=== PATIENT | female | born 1945 | race African-American/Black ===

== ENCOUNTER 2022-11-27 11:30 | Emergency (ER) | payer MEDICARE, MEDICAID, SELFPAY ==
--- NOTE | ~2022-11-27 | XR_ITS ---
EXAMINATION: XR KNEE LEFT XR TIBIA-FIBULA LEFT CLINICAL INFORMATION: Pain after fall COMPARISON: None TECHNIQUE: Left knee, 4 views Left tibia/fibula, 2 views FINDINGS: Left knee: Diffuse osteopenia. Bones have normal alignment. No fracture, subluxation or joint effusion. Small osteophytes of the patella and medial tibiofemoral compartment. Surgical clips present within soft tissues of the posteromedial knee. The peripheral vessels are calcified. Left tibia/fibula: Diffuse osteopenia. Old, healed fracture of the proximal fibular diaphysis. No acute osseous injury. Nonspecific edema within subcutaneous tissues of the lower extremity. XR/XR knee LT 4V IMPRESSION: * No acute fracture or malalignment at the left knee or lower extremity. * Bones are diffusely osteopenic and there is an old, healed fracture of the proximal left fibular diaphysis. * Mild osteoarthritis of the patellofemoral and medial tibiofemoral compartments of the left knee. * Nonspecific edema within subcutaneous tissues of the lower extremity.
--- NOTE | ~2022-11-27 | XR_ITS ---
EXAMINATION: XR KNEE LEFT XR TIBIA-FIBULA LEFT CLINICAL INFORMATION: Pain after fall COMPARISON: None TECHNIQUE: Left knee, 4 views Left tibia/fibula, 2 views FINDINGS: Left knee: Diffuse osteopenia. Bones have normal alignment. No fracture, subluxation or joint effusion. Small osteophytes of the patella and medial tibiofemoral compartment. Surgical clips present within soft tissues of the posteromedial knee. The peripheral vessels are calcified. Left tibia/fibula: Diffuse osteopenia. Old, healed fracture of the proximal fibular diaphysis. No acute osseous injury. Nonspecific edema within subcutaneous tissues of the lower extremity. XR/XR tibia fibula LT 2V IMPRESSION: * No acute fracture or malalignment at the left knee or lower extremity. * Bones are diffusely osteopenic and there is an old, healed fracture of the proximal left fibular diaphysis. * Mild osteoarthritis of the patellofemoral and medial tibiofemoral compartments of the left knee. * Nonspecific edema within subcutaneous tissues of the lower extremity.
--- NOTE | ~2022-11-27 | CT_ITS ---
EXAMINATION: CT HEAD W/O IV CONTRAST CT CERVICAL SPINE W/O IV CONTRAST CLINICAL INFORMATION: History of fall, head strike. Hit head while on Plavix. COMPARISON: None TECHNIQUE: Head - Contiguous axial imaging of the head was performed from the skull base to the vertex without the administration of intravenous contrast, and axial images are reconstructed at 2 mm and 5 mm slice thickness. Cervical spine - A volumetric, helical CT acquisition of the cervical spine was obtained without contrast; in addition to the standard set of axial images, multiplanar reformatted images were provided in the coronal and sagittal imaging planes. This CT examination was performed using dose optimization techniques as appropriate, variously including the following: *Automated exposure control *Adjustment of mA and/or kV according to patient size (this includes techniques or standardized protocols for targeted exams where dose is matched to indication/reason for exam; i.e. extremities or head) *Use of iterative reconstruction technique DLP: 1561 mGy-cm (total) FINDINGS: HEAD: No acute intracranial findings. Lundy to white matter differentiation is preserved. No evidence of intracranial hemorrhage, major vascular territory infarction, focal mass effect or midline shift. Atherosclerotic calcification of cavernous carotid arteries. Patchy hypoattenuation within supratentorial white matter is compatible with sequela of moderate microangiopathy. Old lacunar infarcts of left basal ganglia as well as old infarct along the right corpus striatum. Mild parenchymal volume loss with commensurate prominence of ventricles and sulci. No hydrocephalus or extra-axial fluid collections. There is patchy opacity from edema and/or mild hemorrhage in subcutaneous tissue of the parietal-occipital scalp. This likely represents mild contusion from recent fall. The underlying calvarium is intact. Bilateral mastoid effusions and associated opacification of right more so than left middle ear cavity. The orbits and globes are intact. There is a mucous retention cyst of the inferior frontal sinus. CERVICAL SPINE: The craniocervical junction is normal. The occipital condyles, dens and atlantodental articulation are intact. The vertebral body heights and alignment are maintained. No fractures in the anterior or posterior elements. No prevertebral soft tissue edema or paraspinal hematoma. Moderate multilevel discovertebral degenerative change of the cervical spine and multilevel facet arthropathy. No consolidation or pneumothorax in either visualized apex. The evaluation of apices is partially limited by respiratory motion. A heterogeneous mildly enlarged multinodular thyroid gland is present in several nodules are peripherally calcified. Recommend thyroid ultrasound correlation. CT/CT cervical spine wo IV con IMPRESSION: * There is edema/contusion of subcutaneous tissue of the parietoccipital scalp without calvarial fracture. * No intracranial hemorrhage or other acute intracranial pathology. * Patchy hypoattenuation within supratentorial white matter is compatible with sequela of moderate microangiopathy. * No acute fracture of the degenerated cervical spine. * Mildly enlarged heterogeneous multinodular thyroid goiter. Recommend correlation with thyroid ultrasound. * Bilateral mastoid effusions are present.
[2022-11-27 11:47] VITALS: BP 134/57; BP 160/68; PULSE 67; PULSE 74; RESP 16; TEMP 36.6; O2SAT 96; O2SAT 97; BMI 36.9
--- NOTE | 2022-11-27 12:12 | ED.GENADULT ---
HPI - General Adult General Chief complaint: Fall Stated complaint: LLE PAIN S/P FALL,-LOC,-HEADSTRIKE PER EMS Time Seen by Provider: 11/27/22 11:40 Source: patient and EMS Mode of arrival: EMS Limitations: physical limitation History of Present Illness HPI narrative: The patient is a 76-year-old female brought in by EMS with reported history of prior CVA with left-sided deficits currently on Plavix complaining of left knee pain after a fall two days ago. Patient states that she lives at home alone and has a visiting nurse. She states that 2 days ago she was ambulating to the bathroom without her walker and lost her balance and fell to the floor. She reports hitting her head but denies loss of consciousness, states that it took her several hours to get up off of the floor. She reported her knee pain to the visiting nurse today who called the ambulance. She denies any other injury or complaints. 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 She denies any nausea or vomiting, vision changes, headache. Related Data Allergies Allergy/AdvReac Type Severity Reaction Status Date / Time Penicillins Allergy Unknown Unverified 11/27/22 12:03 piroxicam Allergy Unknown Unverified 11/27/22 12:03 shrimp Allergy Hives Unverified 11/27/22 12:03 Sulfa (Sulfonamide Allergy Unknown Unverified 11/27/22 12:03 Antibiotics) Review of Systems Review of Systems: As per HPI Yes all other systems are reviewed and are negative PMFSH Social History Social History Advance Directives: No Advance Directives Information Provided: Yes Physical Exam ED Vital Signs: Vital Signs - 24 hr 11/27/22 11:47 11/27/22 14:21 11/27/22 15:12 Temperature 97.9 F 98 F Pulse Rate 67 63 59 Respiratory Rate 16 18 13 Blood Pressure 134/57 L 136/61 123/51 L Pulse Oximetry 97 99 99 Oxygen Delivery Method Nasal Cannula Nasal Cannula Nasal Cannula Oxygen Flow Rate 2 2 BMI result Body Mass Index 36.9 Vital signs have been reviewed and appear to be correct. Blood pressure normal. Heart rate normal. Respiratory rate normal. Temperature normal. Oxygen saturation normal, wears 2lpm O2 via NC at baseline. Const General: cooperative, alert and awake; No acute distress Orientation/consciousness: patient oriented x3 Limitations: physical limitations (left sided deficits from prior CVA) [facility] Head: Yes No palpable skull fracture present, Yes normocephalic, No Garcia's sign, Yes contusion (occipital), No laceration, No occipital foramen tenderness, No raccoon eyes, No periorbital ecchymosis and Yes other (left facial droop, reportedly baseline) Ears: external ears normal, TM's normal bilaterally and EAC's normal General nose exam: Normal external nose present Mouth: Normal oral and palatal mucosa present, oropharynx normal and moist mucous membranes Throat: Yes uvula midline Eyes Pupils: Equal, round and reactive pupils present Neck Neck: Yes normal visual inspection and Yes supple Resp Effort & Inspection: normal respiratory effort Auscultation: clear to auscultation bilaterally Cardio Rate: regular rate Rhythm: regular rhythm Heart sounds: S1 normal heart sound present and S2 normal heart sound present GI Inspection: Yes normal to inspection Palpation (GI): Soft to palpation, nontender, no guarding and No Rebound tenderness present General: Yes no CVA tenderness Back/Spine/Pelvis Back: no CVA tenderness Cervical Spine: No Cervical spine tenderness and No step off deformity Thoracic/Lumbar Spine: No thoracic spinal tenderness and No lumbar spinal tenderness Pelvis: no pain with anterior-posterior compression and no pain with lateral compression Skin General skin exam: elasticity normal and turgor normal Neuro Other: baseline L facial droop, LUE and LLE weakness; GCS 15 General: patient oriented x3 Cranial nerves: Yes Equal, round and reactive pupils present Psych Affect: normal affect Attitude: cooperative Thought process: Normal thought process present Course Course Course Narrative: 13:36 FINDINGS: Left knee: Diffuse osteopenia. Bones have normal alignment. No fracture, subluxation or joint effusion. Small osteophytes of the patella and medial tibiofemoral compartment. Surgical clips present within soft tissues of the posteromedial knee. The peripheral vessels are calcified. Left tibia/fibula: Diffuse osteopenia. Old, healed fracture of the proximal fibular diaphysis. No acute osseous injury. Nonspecific edema within subcutaneous tissues of the lower extremity. XR/XR knee LT 4V IMPRESSION: *? No acute fracture or malalignment at the left knee or lower extremity. *? Bones are diffusely osteopenic and there is an old, healed fracture of the proximal left fibular diaphysis. *? 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 *? Nonspecific edema within subcutaneous tissues of the lower extremity. Patient updated on results. Awaiting results of CT head/neck, labs. 14:14 Spoke with Mariely Walsh, patient's POA/HCP. She states that patient lives at [facility] and has 24 hour care, history of CVA and breast cancer. She is unsure if pt has COPD or other respiratory disease but reports patient is on oxygen 2lpm via NC at baseline.. She reports staff reported difficulty with getting the patient dressed this am and sent her for eval of left leg pain. 15:06 FINDINGS: HEAD: No acute intracranial findings. Lundy to white matter differentiation is preserved. No evidence of intracranial hemorrhage, major vascular territory infarction, focal mass effect or midline shift. Atherosclerotic calcification of cavernous carotid arteries. Patchy hypoattenuation within supratentorial white matter is compatible with sequela of moderate microangiopathy. Old lacunar infarcts of left basal ganglia as well as old infarct along the right corpus striatum. Mild parenchymal volume loss with commensurate prominence of ventricles and sulci. No hydrocephalus or extra-axial fluid collections. There is patchy opacity from edema and/or mild hemorrhage in subcutaneous tissue of the parietal-occipital scalp. This likely represents mild contusion from recent fall. The underlying calvarium is intact. Bilateral mastoid effusions and associated opacification of right more so than left middle ear cavity. The orbits and globes are intact. There is a mucous retention cyst of the inferior frontal sinus. CERVICAL SPINE: The craniocervical junction is normal. The occipital condyles, dens and atlantodental articulation are intact. The vertebral body heights and alignment are maintained.? No fractures in the anterior or posterior elements. No prevertebral soft tissue edema or paraspinal hematoma. Moderate multilevel discovertebral degenerative change of the cervical spine and multilevel facet arthropathy. No consolidation or pneumothorax in either visualized apex. The evaluation of apices is partially limited by respiratory motion. A heterogeneous mildly enlarged multinodular thyroid gland is present in several nodules are peripherally calcified. Recommend thyroid ultrasound correlation. CT/CT cervical spine wo IV con IMPRESSION: *? There is edema/contusion of subcutaneous tissue of the parietoccipital scalp without calvarial fracture. *? No intracranial hemorrhage or other acute intracranial pathology. *? Patchy hypoattenuation within supratentorial white matter is compatible with sequela of moderate microangiopathy. *? No acute fracture of the degenerated cervical spine. *? Mildly enlarged heterogeneous multinodular thyroid goiter. Recommend correlation with thyroid ultrasound. *? Bilateral mastoid effusions are present. Patient and POA/HCP updated on results of head/neck CT, awaiting VBG, likely discharge home. 16:[address] Denise who also evaluated patient at bedside, feel respiratory status is likely chronic, patient is awake and alert, not requiring BiPAP at this time. Plan to discharge home as x-rays and CTs unremarkable for any concerning findings. Knee pain likely contusion from fall. Minor contusion to occiput. Tylenol, ice as needed for discomfort. Follow up with PCP kanika. Return precautions discussed with Mariely Walsh, pt's HCP/POA via telephone. Medical Decision Making Medical Decision Making [facility] Narrative: The patient is a 76-year-old female brought in by EMS with reported history of prior CVA with left-sided deficits currently on Plavix complaining of left knee pain after a fall two days ago. On exam patient is awake and alert, oriented x 3, GCS 15, physical exam of left knee and lower leg unremarkable, minor contusion to occipital area, PERRL. Patient is poor historian regarding pmhx. Concern for ICH/SDH, skull fracture, cervical spine fracture, knee strain or contusion, rhabdo given that patient was on the floor for several hours. Plan: x-rays, CT head and neck, basic labs including CPK Differential Diagnosis Differential Diagnoses: The differential diagnosis associated with the presentation includes As above. Admission/Observation Consideration of admission/observation: Escalation of care including admission/observation considered Lab Data [facility] Lab Attestation statement: I reviewed the patient's lab results. 11/27/22 13:20 11/27/22 13:20 Labs: Lab Results 11/27/22 11/27/22 11/27/22 Range/Units 13:20 13:20 15:21 WBC 6.6 (4.8-10.8) X10*3/uL RBC 3.95 L (4.20-5.50) X10*6/uL Hgb 10.5 L (12.0-16.0) g/dl Hct 34.7 L (37.0-47.0) % MCV 87.8 (80.0-98.0) fL MCH 26.6 L (27.0-33.0) pg MCHC 30.3 L (31.0-35.0) g/dl RDW 14.7 (11.0-16.0) % Plt Count 151 L (160-400) X10*3/uL MPV 10.7 (9.4-12.3) fL Immature Gran % (Auto) 0.3 (0.0-0.4) % Neut % (Auto) 67.0 (45-73) % Lymph % (Auto) 22.5 (20-40) % [place] % (Auto) 7.6 (2-11) % Eos % (Auto) 2.3 (0-4) % Baso % (Auto) 0.3 (0-2) % Lymph # (Auto) 1.5 (1.2-4.9) X10*3/uL [place] # (Auto) 0.5 (0.1-1.2) X10*3/uL Eos # (Auto) 0.2 (0.0-0.4) X10*3/uL Baso # (Auto) 0.0 (0.0-0.2) X10*3/uL Abs Immat Gran (auto) 0.02 (0.00-0.03) X10*3/uL Absolute Neuts (auto) 4.4 (2.0-8.3) x10*3/uL Absolute Nucleated RBC 0.000 (0.0-0.012) X10*3/uL Nucleated RBC % (auto) 0.0 (0.0-0.2) /100WBC VBG pH 7.29 L (7.32-7.43) VBG pCO2 89 mmHg VBG pO2 42 mmHg VBG HCO3 44 H (22-26) mmol/L VBG O2 Saturation 62.0 % VBG Base Excess 13.9 mmol/L Sodium 146 H (135-145) mmol/L Potassium 4.7 (3.3-5.1) mmol/L Chloride 104 (96-108) mmol/L Carbon Dioxide 36 H (22-29) mmol/L Anion Gap 11 L (12-20) BUN 9 (9-16) mg/dL Creatinine 1.01 (0.5-1.4) mg/dL Estim Creat Clear Calc 46.1 Estimated GFR 53 Random Glucose 91 (60-115) mg/dL Calcium 8.7 (8.4-10.2) mg/dL Total Creatine Kinase 56 (26-140) U/L Independent Interpretation I performed an independent interpretation of an: Plain X-Ray and CT Scan Interpretation: I independently reviewed the x-ray and CT scan and agree with the radiologist's interpretation. Radiology Impression Discussion of test interpretation with radiology: I have reviewed the radiologist's reading. Radiologist Impression: XR/XR tibia fibula LT 2V IMPRESSION: *? No acute fracture or malalignment at the left knee or lower extremity. *? Bones are diffusely osteopenic and there is an old, healed fracture of the proximal left fibular diaphysis. *? 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 *? Nonspecific edema within subcutaneous tissues of the lower extremity. ? CT/CT cervical spine wo IV con IMPRESSION: *? There is edema/contusion of subcutaneous tissue of the parietoccipital scalp without calvarial fracture. *? No intracranial hemorrhage or other acute intracranial pathology. *? Patchy hypoattenuation within supratentorial white matter is compatible with sequela of moderate microangiopathy. *? No acute fracture of the degenerated cervical spine. *? Mildly enlarged heterogeneous multinodular thyroid goiter. Recommend correlation with thyroid ultrasound. *? Bilateral mastoid effusions are present. Independent Historian Clinical information obtained from an independent historian. History obtained from or confirmed by: Other (Mariely Walsh, HCP/POA) External Record Review External record reviewed: Inpatient record, Office record and Outpatient record Prescription Management I considered prescription management with: Other (CVA) Chronic Conditions Patient?s care impacted by: Other Discharge Plan Discharge Clinical Impression: Contusion of knee, left, Contusion of head Patient Disposition: [facility] Instructions: Fall Prevention for Older Adults (ED), Contusion in Adults (ED) Additional Instructions: You were evaluated in the emergency department today for left knee pain as well as a head injury after a fall. Your x-rays did not show any new fractures in your left knee or leg. Your CT scan did not show signs of a bleed or fractures in your head or neck. You can take Tylenol 650mg every 6 hours as needed for discomfort. Please schedule a follow up appointment with your primary care provider as soon as possible. Return to the emergency department if you experience worsening or uncontrolled pain, vision changes, recurrent vomiting, difficulty with normal activities, abnormal behavior, difficulty walking, numbness, weakness or any other concerning symptoms.
[2022-11-27 13:24] LABS: MANUAL DIFF FLAG NO
[2022-11-27 13:35] LABS: Basophils Percent Auto 0.3 % (0-2); Eosinophils Absolute Auto 0.2 X10*3/uL (0.0-0.4); Eosinophils Percent Auto 2.3 % (0-4); Hematocrit 34.7 % (37.0-47.0); Hemoglobin 10.5 g/dl (12.0-16.0); Imm Gran Abs Auto 0.02 X10*3/uL (0.00-0.03); Imm Gran Pct Auto 0.3 % (0.0-0.4); Lymphocytes Absolute Auto 1.5 X10*3/uL (1.2-4.9); Lymphocytes Percent Auto 22.5 % (20-40); Mean Corpuscular HGB Conc 30.3 g/dl (31.0-35.0); Mean Corpuscular Hemoglobin 26.6 pg (27.0-33.0); Mean Corpuscular Volume 87.8 fL (80.0-98.0); Mean Platelet Volume 10.7 fL (9.4-12.3); Monocytes Absolute Auto 0.5 X10*3/uL (0.1-1.2); Monocytes Percent Auto 7.6 % (2-11); Neutrophils Absolute Auto 4.4 x10*3/uL (2.0-8.3); Platelet Count 151 X10*3/uL (160-400); Red Blood Count 3.95 X10*6/uL (4.20-5.50); Red Cell Distribution Width 14.7 % (11.0-16.0); White Blood Count 6.6 X10*3/uL (4.8-10.8)
[2022-11-27 13:49] LABS: Anion Gap 11 (12-20); Blood Urea Nitrogen 9 mg/dL (9-16); Calcium 8.7 mg/dL (8.4-10.2); Carbon Dioxide 36 mmol/L (22-29); Chloride 104 mmol/L (96-108); Creatinine Clr Calc Pharmacy 46.1; Estimated Glomerular Filt Rate 53; Glucose Random 91 mg/dL (60-115); Potassium 4.7 mmol/L (3.3-5.1); Sodium 146 mmol/L (135-145)
[2022-11-27 14:21] VITALS: BP 136/61; PULSE 63; RESP 18; O2SAT 99
--- NOTE | 2022-11-27 15:10 | PC.NURSE ---
patient incontinent of urine. new bed linen in place. call coe placed within reach. will CTM
[2022-11-27 15:12] VITALS: BP 123/51; PULSE 59; RESP 13; TEMP 36.6; O2SAT 99
[2022-11-27 15:32] LABS: VBG Base Excess 13.9 mmol/L; VBG HCO3 44 mmol/L (22-26); VBG pCO2 89 mmHg; VBG pH 7.29 (7.32-7.43); VBG pO2 42 mmHg
[2022-11-27 15:42] LABS: Venous Blood Gas Refer to POC result
[2022-11-27 19:08] VITALS: BP 134/61; PULSE 63; RESP 13; TEMP 36.6; O2SAT 100
== END 2022-11-27 19:30 | disposition other institution (70) ==
PROVIDERS: Registered Nurse Emergency; Emergency Provider Emergency Medicine; PCP Internal Medicine
DX: S80.02XA Contusion of left knee, initial encounter (principal); S00.93XA Contusion of unspecified part of head, initial encounter; R51.9 Headache, unspecified; M54.2 Cervicalgia; M25.562 Pain in left knee; W01.0XXA Fall on same level from slipping, tripping and stumbling without subsequent striking against object, initial encounter; Y93.9 Activity, unspecified; Y92.9 Unspecified place or not applicable; Y99.9 Unspecified external cause status; Z86.73 Personal history of transient ischemic attack (TIA), and cerebral infarction without residual deficits; Z79.899 Other long term (current) drug therapy
CPT/HCPCS: 36415; 70470; 72125; 73564; 73590; 80048; 82550; 82803; 85025; 99283

== ENCOUNTER 2023-03-06 11:58 | Emergency (ER) | payer MEDICARE, MEDICAID, SELFPAY ==
--- NOTE | ~2023-03-06 | XR_ITS ---
EXAMINATION: XR CHEST CLINICAL INFORMATION: Shortness of breath. COMPARISON: None available. TECHNIQUE: Frontal view of the chest was obtained. FINDINGS: Kyphotic positioning and low lung volumes limit evaluation. The lungs appear clear. The heart and mediastinal structures are unremarkable multilevel sternotomy wires are intact. XR/XR chest 1V IMPRESSION: Limited study showing no acute cardiopulmonary process.
[2023-03-06 12:07] VITALS: BP 134/72; BP 139/61; PULSE 70; PULSE 74; RESP 16; TEMP 37; O2SAT 82; O2SAT 94; BMI 33.8
--- NOTE | 2023-03-06 12:09 | ED.SOB ---
HPI - SOB/Dyspnea General Chief Complaint: Dyspnea Stated Complaint: LOW O2 SAT(82% PER VRN),HEADACHE PER EMS Time Seen by Provider: 03/06/23 12:02 Source: EMS Mode of arrival: EMS Limitations: physical limitation History of Present Illness HPI Narrative: visiting nurse found her hypoxic, EMS raised her 2L to 4 L. MD elicited complaint: shortness of breath Pertinent past history: COPD and congestive heart failure Onset (ago): hour(s) Timing: constant Severity: moderate Related Data Allergies Allergy/AdvReac Type Severity Reaction Status Date / Time Penicillins Allergy Unknown Unverified 11/27/22 12:03 piroxicam Allergy Unknown Unverified 11/27/22 12:03 shrimp Allergy Hives Unverified 11/27/22 12:03 Sulfa (Sulfonamide Allergy Unknown Unverified 11/27/22 12:03 Antibiotics) Review of Systems Review of Systems: Yes Unobtainable due to mental condition and Unobtainable due to mental status Neurologic: Denies Sensory deficit (Neuro) [facility] Social History Social History Alcohol intake: never Smoked in Last 30 Days: No Use of substances other than those prescribed or required for medical reasons: No Advance Directives: No Advance Directives Information Provided: No Physical Exam Vital Signs: Vital Signs: Last Vital Signs Temp 97.9 F 03/06/23 14:02 Pulse 68 03/06/23 14:02 Resp 15 03/06/23 14:02 BP 96/47 L 03/06/23 14:02 Pulse Ox 97 03/06/23 14:02 O2 Del Method Aerosol Mask 03/06/23 14:02 Oxygen Flow Rate 2 03/06/23 12:07 BMI result Body Mass Index 33.8 Const: Other: elderly chronically ill Orientation/consciousness: oriented to person Limitations: physical limitations HEENT: Head: Yes normal to inspection Ears: external ears normal General nose exam: Normal external nose present Mouth: Normal oral and palatal mucosa present and oropharynx normal Throat: Yes posterior oropharynx normal Eyes: General: appearance normal, both eyes and all related structures Neck: Other: supple Neck: Yes normal visual inspection Chest: Chest palpation & inspection: normal inspection of the chest Resp: Other: diffuse crackles throughout Cardio: Other: 3/6 SREE Rate: regular rate Rhythm: regular rhythm GI: Inspection: Yes normal to inspection Palpation (GI): Soft to palpation, nontender and No hepatosplenomegaly present Auscultation: normal bowel sounds : General: Yes no CVA tenderness Back/Spine/Pelvis: Back: no CVA tenderness Skin: General skin exam: no rashes or lesions noted Neuro: Other: old left hemiparesis General: oriented to person Cranial nerves: Yes CN's II-XII intact bilaterally Sensory Exam: No Sensory deficit (Neuro) Extrem: General: Yes normal to inspection Psych: Appearance: grossly normal Course Reevaluation(s) Reevaluation #1: patients O2 sat is 95% on 2L breathing better will dc home Time: 14:24 Medications Administered Discontinued Medications Generic Name Dose Route Start Last Admin Trade Name Freq PRN Reason Stop Dose Admin Albuterol/Ipratropium 3 ml 03/06/23 12:16 03/06/23 12:31 Albuterol/Iprat 2.5/0.5mg 3 Ml Ampul.Neb INHALE 03/06/23 12:17 3 ml ONCE ONE Administration Medical Decision Making Differential Diagnosis Differential Diagnoses: The differential diagnosis associated with the presentation includes (COPD, CHF, pneumonia were all considered) Admission/Observation Consideration of admission/observation: Escalation of care including admission/observation considered (upon arrival this patient was considered for admission) Lab Data MDM Lab Attestation statement: I reviewed the patient's lab results. (normal WBC and elevation of renal function was noted) 03/06/23 12:27 03/06/23 12:27 Labs: Lab Results 03/06/23 03/06/23 Range/Units 12:27 12:27 WBC 5.5 (4.8-10.8) X10*3/uL RBC 4.67 (4.20-5.50) X10*6/uL Hgb 12.3 (12.0-16.0) g/dl Hct 38.9 (37.0-47.0) % MCV 83.3 (80.0-98.0) fL MCH 26.3 L (27.0-33.0) pg MCHC 31.6 (31.0-35.0) g/dl RDW 15.2 (11.0-16.0) % Plt Count 127 L (160-400) X10*3/uL MPV 10.5 (9.4-12.3) fL Immature Gran % (Auto) 0.4 (0.0-0.4) % Neut % (Auto) 59.4 (45-73) % Lymph % (Auto) 30.9 (20-40) % [place] % (Auto) 6.5 (2-11) % Eos % (Auto) 2.4 (0-4) % Baso % (Auto) 0.4 (0-2) % Lymph # (Auto) 1.7 (1.2-4.9) X10*3/uL [place] # (Auto) 0.4 (0.1-1.2) X10*3/uL Eos # (Auto) 0.1 (0.0-0.4) X10*3/uL Baso # (Auto) 0.0 (0.0-0.2) X10*3/uL Abs Immat Gran (auto) 0.02 (0.00-0.03) X10*3/uL Absolute Neuts (auto) 3.3 (2.0-8.3) x10*3/uL Absolute Nucleated RBC 0.000 (0.0-0.012) X10*3/uL Nucleated RBC % (auto) 0.0 (0.0-0.2) /100WBC Sodium 144 (135-145) mmol/L Potassium 4.5 (3.3-5.1) mmol/L Chloride 106 (96-108) mmol/L Carbon Dioxide 33 H (22-29) mmol/L Anion Gap 10 L (12-20) BUN 25 H (9-16) mg/dL Creatinine 1.48 H (0.5-1.4) mg/dL Estim Creat Clear Calc 32.0 Estimated GFR 34 Random Glucose 112 (60-115) mg/dL Calcium 9.1 (8.4-10.2) mg/dL Independent Interpretation I performed an independent interpretation of an: Plain X-Ray (CXR no infiltrate) Independent Historian Clinical information obtained from an independent historian. History obtained from or confirmed by: EMS External Record Review External record reviewed: Outpatient record Tests considered The following testing was considered but not selected: CT of chest was considered but patient improved quickly Prescription Management I considered prescription management with: Antibiotic (was considered but no fever no WBC elevation, no infiltrate on xray) Chronic Conditions Patient?s care impacted by: Other (COPD, chf) Discharge Plan Discharge Clinical Impression: Acute exacerbation of chronic obstructive airways disease Patient Disposition: Home, Self-Care Instructions: COPD (Chronic Obstructive Pulmonary Disease) (ED) Referrals: Cliff Walsh MD [Primary Care Provider] - 3 days
[2023-03-06 12:30] LABS: MANUAL DIFF FLAG NO
[2023-03-06 12:31] VITALS: PULSE 68; RESP 17; O2SAT 93
[2023-03-06] MEDS: Albuterol/Iprat 2.5/0.5MG 3 ML AMPUL.NEB INHALE (12:31)
[2023-03-06 12:33] LABS: Basophils Percent Auto 0.4 % (0-2); Eosinophils Absolute Auto 0.1 X10*3/uL (0.0-0.4); Eosinophils Percent Auto 2.4 % (0-4); Hematocrit 38.9 % (37.0-47.0); Hemoglobin 12.3 g/dl (12.0-16.0); Imm Gran Abs Auto 0.02 X10*3/uL (0.00-0.03); Imm Gran Pct Auto 0.4 % (0.0-0.4); Lymphocytes Absolute Auto 1.7 X10*3/uL (1.2-4.9); Lymphocytes Percent Auto 30.9 % (20-40); Mean Corpuscular HGB Conc 31.6 g/dl (31.0-35.0); Mean Corpuscular Hemoglobin 26.3 pg (27.0-33.0); Mean Corpuscular Volume 83.3 fL (80.0-98.0); Mean Platelet Volume 10.5 fL (9.4-12.3); Monocytes Absolute Auto 0.4 X10*3/uL (0.1-1.2); Monocytes Percent Auto 6.5 % (2-11); Neutrophils Absolute Auto 3.3 x10*3/uL (2.0-8.3); Neutrophils Percent Auto 59.4 % (45-73); Platelet Count 127 X10*3/uL (160-400); Red Blood Count 4.67 X10*6/uL (4.20-5.50); Red Cell Distribution Width 15.2 % (11.0-16.0); White Blood Count 5.5 X10*3/uL (4.8-10.8)
[2023-03-06 12:48] LABS: Anion Gap 10 (12-20); Blood Urea Nitrogen 25 mg/dL (9-16); Calcium 9.1 mg/dL (8.4-10.2); Carbon Dioxide 33 mmol/L (22-29); Chloride 106 mmol/L (96-108); Estimated Glomerular Filt Rate 34; Glucose Random 112 mg/dL (60-115); Potassium 4.5 mmol/L (3.3-5.1); Sodium 144 mmol/L (135-145)
[2023-03-06 14:02] VITALS: BP 96/47; PULSE 68; RESP 15; TEMP 36.6; O2SAT 97
[2023-03-06 14:44] VITALS: BP 113/49; PULSE 66; RESP 15; O2SAT 98
--- NOTE | 2023-03-06 14:52 | PC.NURSE ---
called pts [facility] service, informed they will not be at the pts house t receive her until 5pm. pt uses [facility]. informed placement secretary Manuel to book BLS transport back to pts home for 5pm.
[2023-03-06 17:18] VITALS: BP 111/43; PULSE 63; RESP 14; O2SAT 93
--- NOTE | 2023-03-06 17:18 | PC.NURSE ---
pt checked for incontinence. pt dry at this time. brief remains intact. currently pt awaiting BLS transport home. VSS.
== END 2023-03-06 18:15 | disposition home or self-care (01) ==
PROVIDERS: Emergency Provider Emergency Medicine; PCP Internal Medicine
DX: J44.1 Chronic obstructive pulmonary disease with (acute) exacerbation (principal); R06.02 Shortness of breath
CPT/HCPCS: 36415; 71045; 80048; 85025; 94640; 99284

== ENCOUNTER 2023-05-05 13:38 | Emergency (ER) | payer MEDICARE, MEDICAID, SELFPAY ==
--- NOTE | ~2023-05-05 | XR_ITS ---
EXAMINATION: XR CHEST CLINICAL INFORMATION: Hypoxia. COMPARISON: 03/06/2023. TECHNIQUE: Frontal view of the chest was obtained. FINDINGS: The lung volumes are again seen to be significantly low. The cardiomediastinal silhouette is stable. There is diffuse increased markings. There is no definitive focal consolidation or evidence for significant pleural effusions. The bony structures and soft tissues are unremarkable. XR/XR chest 1V IMPRESSION: Low lung volumes limits evaluation. Diffuse increased markings suspected to be technical and/or chronic. Similar change was present previously. No definitive evidence for active cardiopulmonary disease. No significant change.
[2023-05-05 13:56] VITALS: BP 118/49; PULSE 61; RESP 12; TEMP 36.7; O2SAT 99; BMI 34.7
--- NOTE | 2023-05-05 14:00 | ED_ITS ---
HPI - SOB/Dyspnea General Chief Complaint: Upper Respiratory Symptoms Stated Complaint: DIFF BREATHING Time Seen by Provider: 05/05/23 13:45 Source: EMS and RN notes reviewed Mode of arrival: EMS Limitations: physical limitation History of Present Illness HPI Narrative: Patient is in the skilled nursing and her O2 sats started to drop so they increased her from 2L to 3L and sent her to the ED MD elicited complaint: shortness of breath Related Data Allergies Allergy/AdvReac Type Severity Reaction Status Date / Time Penicillins Allergy Unknown Verified 05/05/23 14:14 piroxicam Allergy Unknown Verified 05/05/23 14:14 shrimp Allergy Hives Verified 05/05/23 14:14 Sulfa (Sulfonamide Allergy Unknown Verified 05/05/23 14:14 Antibiotics) Review of Systems 2 Review of Systems: Yes all other systems are reviewed and are negative Neurologic: Denies Sensory deficit (Neuro) COUNT INCLUDES THE [facility] Social History Social History Alcohol intake: never Advance Directives: No Physical Exam 2 Vital Signs: Vital Signs: Last Vital Signs Temp 98.1 F 05/05/23 13:56 Pulse 61 05/05/23 13:56 Resp 12 05/05/23 13:56 BP 118/49 L 05/05/23 13:56 Pulse Ox 99 05/05/23 13:56 O2 Del Method Non-Rebreather Ma sk 05/05/23 13:56 Oxygen Flow Rate 10 05/05/23 13:56 BMI result Body Mass Index 34.7 Const: Other: Female chronically ill, not short of breath Nutritional Appearance: obese Orientation/consciousness: oriented to person Limitations: altered mental status HEENT: Head: Yes normal to inspection Ears: external ears normal General nose exam: Normal external nose present Mouth: Normal oral and palatal mucosa present and oropharynx normal Throat: Yes posterior oropharynx normal Eyes: General: appearance normal, both eyes and all related structures Neck: Other: supple Neck: Yes normal visual inspection Chest: Chest palpation & inspection: normal inspection of the chest Resp: Auscultation: clear to auscultation bilaterally Cardio: Jugular venous distension: no JVD Rate: regular rate Rhythm: r egular rhythm Heart sounds: S1 normal heart sound present and S2 normal heart sound present GI: Inspection: Yes normal to inspection Palpation (GI): Soft to palpation, nontender and No hepatosplenomegaly present Auscultation: normal bowel sounds : General: Yes no CVA tenderness Back/Spine/Pelvis: Back: no CVA tenderness Skin: General skin exam: no rashes or lesions noted Neuro: General: oriented to person Cranial nerves: Yes CN's II-XII intact bilaterally Motor exam (neuro): 5/5 motor strength present throughout S ensory Exam: No Sensory deficit (Neuro) Extrem: General: Yes normal to inspection Psych: Appearance: grossly normal Course Reevaluation(s) Reevaluation #1: patient at 93% on 2 L will dc home, no evidence of CHF or pneumonia Time: 16:03 Medical Decision Making Differential Diagnosis Differential Diagnoses: The differential diagnosis associated with the presentation includes (Pneumonia, chf, COPD were all considered) Admission/Observation Consideration of admission/observation: Escalation of care including admission/observation considered (upon arrival patient was considered for admission) Lab Data MDM Lab Attestation statement: I reviewed the patient's lab results. (no elevated WBC, renal insufficiency baseline) 05/05/23 14:49 05/05/23 14:49 Labs: Lab Results 05/05/23 05/05/23 Range/Units 14:49 14:53 WBC 6.3 (4.8-10.8) X10*3/uL RBC 5.06 (4.20-5.50) X10*6/uL Hgb 13.3 (12.0-16.0) g/dl Hct 43.4 (37.0-47.0) % MCV 85.8 (80.0-98.0) fL MCH 26.3 L (27.0-33.0) pg MCHC 30.6 L (31.0-35.0) g/dl RDW 17.2 H (11.0-16.0) % Plt Count 145 L (160-400) X10*3/uL MPV 10.4 (9.4-12.3) fL Immature Gran % (Auto) 0.3 (0.0-0.4) % Neut % (Auto) 57.0 (45-73) % Lymph % (Auto) 32.3 (20-40) % [place] % (Auto) 8.2 (2-11) % Eos % (Auto) 1.9 (0-4) % Baso % (Auto) 0.3 (0-2) % Lymph # (Auto) 2.0 (1.2-4.9) X10*3/uL [place] # (Auto) 0.5 (0.1-1.2) X10*3/uL Eos # (Auto) 0.1 (0.0-0.4) X10*3/uL Baso # (Auto) 0.0 (0.0-0.2) X10*3/uL Abs Immat Gran (auto) 0.02 (0.00-0.03) X10*3/uL Absolute Neuts (auto) 3.6 (2.0-8.3) x10*3/uL Absolute Nucleated RBC 0.000 (0.0-0.012) X10*3/uL Nucleated RBC % (auto) 0.0 (0.0-0.2) /100WBC VBG pH 7.31 L (7.32-7.43) VBG pCO2 68 mmHg VBG pO2 45 mmHg VBG HCO3 35 H (22-26) mmol/L VBG O2 Saturation 68.0 % VBG Base Excess 6.6 mmol/L Sodium 144 (135-145) mmol/L Potassium 4.3 (3.3-5.1) mmol/L Chloride 104 (96-108) mmol/L Carbon Dioxide 28 (22-29) mmol/L Anion Gap 16 (12-20) BUN 20 H (9-16) mg/dL Creatinine 1.49 H (0.5-1.4) mg/dL Estim Creat Clear Calc 37.2 Estimated GFR 34 Random Glucose 97 (60-115) mg/dL Calcium 9.6 (8.4-10.2) mg/dL Troponin I High Sens < 2.7 (<3.5-17.0) ng/L B-Natriuretic Peptide 79 (<100) pg/mL Influenza Type A (PCR) NEGATIVE (Negative) Influenza Type B (PCR) NEGATIVE (Negative) RSV RNA Qual (PCR) NEGATIVE (Negative) SARS-CoV-2 RNA (RT-PCR) NEGATIVE (Negative) Independent Interpretation I performed an independent interpretation of an: EKG (normal sinus rate [address] or twave changes) and Plain X-Ray Independent Historian Clinical information obtained from an independent historian. History obtained from or confirmed by: EMS External Record Review External record reviewed: Outpatient record Prescription Management I considered prescription management with: Antibiotic (anitbiotic considered no infiltrate so no need for abx) Chronic Conditions Patient?s care impacted by: Hypertension Discharge Plan Discharge Clinical Impression: Chronic shortness of breath, Chronic obstructive pulmonary disease on long-term inhaled steroid therapy Patient Disposition: Home, Self-Care Instructions: COPD (Chronic Obstructive Pulmonary Disease) (DC) Referrals: Cliff Walsh MD [Primary Care Provider] - 5 days
--- NOTE | 2023-05-05 14:01 | ECG_ITS ---
Test Reason : SOB Blood Pressure : / mmHG Vent. Rate : 060 BPM Atrial Rate : 060 BPM P-R Int : 168 ms QRS Dur : 086 ms QT Int : 406 ms P-R-T Axes : 041 011 025 degrees QTc Int : 406 ms Normal sinus rhythm Normal ECG No previous ECGs available Referred By: Rogelio Forman Electronically Signed By:ELISA AVITIA MD
--- NOTE | 2023-05-05 14:17 | PC.NURSE ---
pt alert, oriented to self and place. she was sent from [facility] by her horseradish grinder who reported low o2 sats 87-88% on 2L n/c baseline. per ems placed pt on 10L non-rebreather brought sat to 98%. on arrival to ed pt satting 100% on 10L non-rebreather. pt switched to 2L n/c satting 98-99%. vss, denies pain.
[2023-05-05 14:59] LABS: VBG Base Excess 6.6 mmol/L; VBG HCO3 35 mmol/L (22-26); VBG pCO2 68 mmHg; VBG pH 7.31 (7.32-7.43); VBG pO2 45 mmHg
[2023-05-05 15:05] LABS: Venous Blood Gas Refer to POC result
[2023-05-05 15:06] LABS: MANUAL DIFF FLAG NO
[2023-05-05 15:08] LABS: Basophils Percent Auto 0.3 % (0-2); Eosinophils Absolute Auto 0.1 X10*3/uL (0.0-0.4); Eosinophils Percent Auto 1.9 % (0-4); Hematocrit 43.4 % (37.0-47.0); Hemoglobin 13.3 g/dl (12.0-16.0); Imm Gran Abs Auto 0.02 X10*3/uL (0.00-0.03); Imm Gran Pct Auto 0.3 % (0.0-0.4); Lymphocytes Percent Auto 32.3 % (20-40); Mean Corpuscular HGB Conc 30.6 g/dl (31.0-35.0); Mean Corpuscular Hemoglobin 26.3 pg (27.0-33.0); Mean Corpuscular Volume 85.8 fL (80.0-98.0); Mean Platelet Volume 10.4 fL (9.4-12.3); Monocytes Absolute Auto 0.5 X10*3/uL (0.1-1.2); Monocytes Percent Auto 8.2 % (2-11); Neutrophils Absolute Auto 3.6 x10*3/uL (2.0-8.3); Platelet Count 145 X10*3/uL (160-400); Red Blood Count 5.06 X10*6/uL (4.20-5.50); Red Cell Distribution Width 17.2 % (11.0-16.0); White Blood Count 6.3 X10*3/uL (4.8-10.8)
[2023-05-05 15:33] LABS: Anion Gap 16 (12-20); Blood Urea Nitrogen 20 mg/dL (9-16); Calcium 9.6 mg/dL (8.4-10.2); Carbon Dioxide 28 mmol/L (22-29); Chloride 104 mmol/L (96-108); Creatinine Clr Calc Pharmacy 37.2; Estimated Glomerular Filt Rate 34; Glucose Random 97 mg/dL (60-115); Potassium 4.3 mmol/L (3.3-5.1); Sodium 144 mmol/L (135-145)
[2023-05-05 15:37] LABS: B Type Natriuretic Peptide 79 pg/mL (<100)
[2023-05-05 15:38] LABS: Troponin-I High Sensitivity < 2.7 ng/L (<3.5-17.0)
[2023-05-05 16:02] LABS: Influenza A PCR NEGATIVE (Negative); Influenza B PCR NEGATIVE (Negative); Resp Syncy Virus RNA Qual PCR NEGATIVE (Negative); SARS COV2 PCR INHOUSE NEGATIVE (Negative)
== END 2023-05-05 18:20 | disposition home or self-care (01) ==
PROVIDERS: Emergency Provider Emergency Medicine; PCP Internal Medicine
DX: J44.9 Chronic obstructive pulmonary disease, unspecified (principal); R06.02 Shortness of breath; Z79.51 Long term (current) use of inhaled steroids; Z20.822 Contact with and (suspected) exposure to COVID-19; Z20.828 Contact with and (suspected) exposure to other viral communicable diseases
CPT/HCPCS: 0241U; 36415; 71045; 80048; 82803; 83880; 84484; 85025; 93005; 99283; 99284

== ENCOUNTER 2023-05-16 15:31 | Emergency (ER) | payer MEDICARE, MEDICAID, SELFPAY ==
--- NOTE | ~2023-05-16 | XR_ITS ---
EXAMINATION: XR CHEST CLINICAL INFORMATION: Dyspnea. COMPARISON: Chest 05/05/2023 TECHNIQUE: Frontal view of the chest was obtained. FINDINGS: The lungs are hyperexpanded patchy opacity right lung base likely atelectasis. The heart size is enlarged. Pulmonary vascularity is slightly prominent. There are mediastinal trev and median sternotomy sutures from previous intervention. No gross bony abnormality seen. XR/XR chest 1V IMPRESSION: 1. Cardiomegaly with mild pulmonary vascular congestion. 2. Patchy opacity right lung base likely atelectasis.
[2023-05-16 15:50] VITALS: BP 136/74; PULSE 72; O2SAT 93; BMI 27.1
--- NOTE | 2023-05-16 15:59 | ED.SOB ---
HPI - SOB/Dyspnea General Chief Complaint: Dyspnea Stated Complaint: LOW O2, 60'S PER STAFF, NOW 90-93 W/ EMS Time Seen by Provider: 05/16/23 15:50 Source: EMS and RN notes reviewed Limitations: physical limitation History of Present Illness HPI Narrative: 77 years old presenting from senior care for episode of hypoxemia on 2 L nasal cannula. According to EMS report they were called because during rounds patient was noted to be with an SpO2 of 60%. Patient is a poor historian, on arrival complaining of shortness of breath and headache. Denies chest pain, chills or fever. Related Data Allergies Allergy/AdvReac Type Severity Reaction Status Date / Time Penicillins Allergy Unknown Verified 05/16/23 15:50 piroxicam Allergy Unknown Verified 05/16/23 15:50 shrimp Allergy Hives Verified 05/16/23 15:50 Sulfa (Sulfonamide Allergy Unknown Verified 05/16/23 15:50 Antibiotics) Review of Systems Review of Systems: Yes all other systems are reviewed and are negative [facility] Social History Social History Alcohol intake: never Smoked in Last 30 Days: No Use of substances other than those prescribed or required for medical reasons: No Advance Directives: No Advance Directives Information Provided: No Physical Exam Vital Signs: Vital Signs: Last Vital Signs Temp 98.3 F 05/16/23 16:24 Pulse 60 05/16/23 16:24 Resp 18 05/16/23 16:24 BP 104/47 L 05/16/23 16:24 Pulse Ox 96 05/16/23 16:24 O2 Del Method Nasal Cannula 05/16/23 16:24 O2 Flow Rate 2 05/16/23 16:24 BMI result Body Mass Index 27.1 Const: General: awake Orientation/consciousness: patient oriented x3 HEENT: Head: Yes normocephalic Chest: Chest palpation & inspection: normal inspection of the chest Resp: Other: Tachypnea, few crackles bilaterally but good air entry. No wheezes Cardio: Rate: regular rate Rhythm: regular rhythm Heart sounds: S1 normal heart sound present and S2 normal heart sound present GI: Inspection: Yes normal to inspection Palpation (GI): Soft to palpation Neuro: Other: Patient is drowsy but able to respond to her by stimuli. rigth-sided facial droop Strength is 3/5 on upper extremities 1/5 strenght on lower extremities General: patient oriented x3 Extrem: Other: No pitting edema Course Reevaluation(s) Reevaluation #1: Patient desaturated to 85% in room air or a baseline she is on 2 L nasal cannula she is doing well in that setting, saturating 97%. Patient lab work showed mild increase of creatinine to 1.30 evident disease improvement compared to last available. Chest x-ray did not show any pneumonia, D-dimer is negative, this time I do not think patient requires admission. For collateral history from power of attorney law clerk. Patient lives in assisted living with the 24 hour assistance. She reports that the patient is being little bit more sleepy than usual and had an episode where she felt short of breath and therefore post about them to call for help. When nursing staff arrived at oxide level was low therefore they called EMS. However patient in the emergency room as wanting a normal level of SpO2 on O2 and at this time other than think she requires admission. Cold flu RSV is negative. Recommended power of attorney law clerk to follow up with the primary care physician and discuss return precaution. At this time patient has remained in the emergency room for a 2 hours, she has remained hemodynamically stable and at this time I do not think she requires admission. will DC home. Time: 17:25 Medications Administered Discontinued Medications Generic Name Dose Route Start Last Admin Trade Name Melitonq PRN Reason Stop Dose Admin Acetaminophen 975 mg 05/16/23 16:00 05/16/23 16:44 Acetaminophen 325 Mg Tablet PO 05/16/23 16:01 975 mg ONCE ONE Administration Medical Decision Making Medical Decision Making [facility] Narrative: Sp02 in room air with good plate is 84% 77 years old from senior care presented to emergency room for hypoxemia. Per EMS report the patient is being using oxygen 2 L nasal cannula for the past few days. On arrival patient reported some mild shortness of breath a mild headache, in room air she is saturating 85%. Mildly tachypneic but otherwise does not appear in severe respiratory distress. Possible differential diagnosis include all with flu RSV pneumonia coma bacterial pneumonia, CHF exacerbation, COPD exacerbation, PE. Plan: CBC, BMP, EKG, venous gas, D-dimer Chest x-ray With continue O2 at 2 L. Lab Data 05/16/23 16:33 05/16/23 16:33 Labs: Lab Results 05/16/23 05/16/23 05/16/23 Range/Units 16:33 16:51 17:02 WBC 6.5 (4.8-10.8) X10*3/uL RBC 4.77 (4.20-5.50) X10*6/uL Hgb 12.8 (12.0-16.0) g/dl Hct 40.9 (37.0-47.0) % MCV 85.7 (80.0-98.0) fL MCH 26.8 L (27.0-33.0) pg MCHC 31.3 (31.0-35.0) g/dl RDW 17.1 H (11.0-16.0) % Plt Count 155 L (160-400) X10*3/uL MPV 11.2 (9.4-12.3) fL Immature Gran % (Auto) 0.2 (0.0-0.4) % Neut % (Auto) 67.6 (45-73) % Lymph % (Auto) 23.0 (20-40) % [place] % (Auto) 7.5 (2-11) % Eos % (Auto) 1.4 (0-4) % Baso % (Auto) 0.3 (0-2) % Lymph # (Auto) 1.5 (1.2-4.9) X10*3/uL [place] # (Auto) 0.5 (0.1-1.2) X10*3/uL Eos # (Auto) 0.1 (0.0-0.4) X10*3/uL Baso # (Auto) 0.0 (0.0-0.2) X10*3/uL Abs Immat Gran (auto) 0.01 (0.00-0.03) X10*3/uL Absolute Neuts (auto) 4.4 (2.0-8.3) x10*3/uL Absolute Nucleated RBC 0.000 (0.0-0.012) X10*3/uL Nucleated RBC % (auto) 0.0 (0.0-0.2) /100WBC Hold Purple Top SEE NOTE D-Dimer High Sensitivty 276 NG/ML VBG pH 7.37 (7.32-7.43) VBG pCO2 64 mmHg VBG pO2 47 mmHg VBG HCO3 37 H (22-26) mmol/L VBG O2 Saturation 72.0 % VBG Base Excess 9.6 mmol/L Sodium 145 (135-145) mmol/L Potassium 5.0 (3.3-5.1) mmol/L Chloride 105 (96-108) mmol/L Carbon Dioxide 33 H (22-29) mmol/L Anion Gap 12 (12-20) BUN 21 H (9-16) mg/dL Creatinine 1.31 (0.5-1.4) mg/dL Estim Creat Clear Calc 37.5 Estimated GFR 39 Random Glucose 106 (60-115) mg/dL Calcium 9.4 (8.4-10.2) mg/dL Influenza Type A (PCR) NEGATIVE (Negative) Influenza Type B (PCR) NEGATIVE (Negative) RSV RNA Qual (PCR) NEGATIVE (Negative) SARS-CoV-2 RNA (RT-PCR) NEGATIVE (Negative) Independent Interpretation I performed an independent interpretation of an: EKG (I personally reviewed the EKG that shows sinus rhythm.) and Plain X-Ray (I personally reviewed the chest x-ray that does not show any consolidation.) Independent Historian Clinical information obtained from an independent historian. History obtained from or confirmed by: Other (POA) External Record Review External record reviewed: Inpatient record Prescription Management I considered prescription management with: Pain Medication, Antiviral and Antibiotic Social Determinants He lives in independent living but with 24 hours home help Discharge Plan Discharge Clinical Impression: Acute dyspnea, Headache Patient Disposition: Home, Self-Care Instructions: Dyspnea (ED) Additional Instructions: Patient was seen in emergency room for episode of shortness of breath. However since she arrived to the ED she has been saturating 96 97% on 2 L. At her CBC was unremarkable, VBG showed no respiratory acidosis and call with flu RSV is negative. D-dimer is negative BMP showed creatinine 1.31 but otherwise unremarkable. Please return to the emergency room in case symptoms worsen, otherwise follow-up with the primary care physician. For headache you can use Tylenol 1000 mg up to 4 times a day.
--- NOTE | 2023-05-16 16:00 | ECG_ITS ---
Test Reason : DYSPNEA Blood Pressure : / mmHG Vent. Rate : 060 BPM Atrial Rate : 060 BPM P-R Int : 168 ms QRS Dur : 082 ms QT Int : 396 ms P-R-T Axes : 048 008 018 degrees QTc Int : 396 ms Normal sinus rhythm Normal ECG When compared with ECG of 05-MAY-2023 14:22, No significant change was found Referred By: Gilmar May Electronically Signed By:ELISA AVITIA MD
[2023-05-16 16:24] VITALS: BP 104/47; PULSE 60; RESP 18; TEMP 36.8; O2SAT 96
[2023-05-16 16:38] LABS: MANUAL DIFF FLAG NO
[2023-05-16 16:41] LABS: Basophils Percent Auto 0.3 % (0-2); Eosinophils Absolute Auto 0.1 X10*3/uL (0.0-0.4); Eosinophils Percent Auto 1.4 % (0-4); Hematocrit 40.9 % (37.0-47.0); Hemoglobin 12.8 g/dl (12.0-16.0); Imm Gran Abs Auto 0.01 X10*3/uL (0.00-0.03); Imm Gran Pct Auto 0.2 % (0.0-0.4); Lymphocytes Absolute Auto 1.5 X10*3/uL (1.2-4.9); Mean Corpuscular HGB Conc 31.3 g/dl (31.0-35.0); Mean Corpuscular Hemoglobin 26.8 pg (27.0-33.0); Mean Corpuscular Volume 85.7 fL (80.0-98.0); Mean Platelet Volume 11.2 fL (9.4-12.3); Monocytes Absolute Auto 0.5 X10*3/uL (0.1-1.2); Monocytes Percent Auto 7.5 % (2-11); Neutrophils Absolute Auto 4.4 x10*3/uL (2.0-8.3); Neutrophils Percent Auto 67.6 % (45-73); Platelet Count 155 X10*3/uL (160-400); Red Blood Count 4.77 X10*6/uL (4.20-5.50); Red Cell Distribution Width 17.1 % (11.0-16.0); White Blood Count 6.5 X10*3/uL (4.8-10.8)
[2023-05-16] MEDS: Acetaminophen 325 MG TABLET 975 MG PO (16:44)
--- NOTE | 2023-05-16 16:46 | PC.NURSE ---
pt medicated per provider order.
--- NOTE | 2023-05-16 16:52 | PC.NURSE ---
[facility] drawing labs at this time.
[2023-05-16 16:54] LABS: Anion Gap 12 (12-20); Blood Urea Nitrogen 21 mg/dL (9-16); Calcium 9.4 mg/dL (8.4-10.2); Carbon Dioxide 33 mmol/L (22-29); Chloride 105 mmol/L (96-108); Creatinine Clr Calc Pharmacy 37.5; Estimated Glomerular Filt Rate 39; Glucose Random 106 mg/dL (60-115); Sodium 145 mmol/L (135-145)
--- NOTE | 2023-05-16 17:00 | PC.NURSE ---
Mariely [phone] pt's COMMUNICATIONS PROFESSIONAL/healthcare pricer called for status update on pt. inspector set up and lay out states that someone needs to be at home for pt when she returns to independent living facility. this RN will notify inspector set up and lay out on plan when able.
[2023-05-16 17:07] LABS: VBG Base Excess 9.6 mmol/L; VBG HCO3 37 mmol/L (22-26); VBG pCO2 64 mmHg; VBG pH 7.37 (7.32-7.43); VBG pO2 47 mmHg
[2023-05-16 17:10] LABS: Venous Blood Gas Refer to POC result
[2023-05-16 17:15] LABS: Influenza A PCR NEGATIVE (Negative); Influenza B PCR NEGATIVE (Negative); Resp Syncy Virus RNA Qual PCR NEGATIVE (Negative); SARS COV2 PCR INHOUSE NEGATIVE (Negative)
[2023-05-16 17:19] LABS: D Dimer High Sensitivity 276 NG/ML
--- NOTE | 2023-05-16 18:00 | PC.NURSE ---
engineering secretary notified that pt is medically cleared to live via ambulance at this time. will notify metal window frame maker/health care energy attorney when ETA is known.
--- NOTE | 2023-05-16 18:05 | PC.NURSE ---
BUILDING RENTAL MANAGER called/notified of discharge time. will notify BUILDING RENTAL MANAGER when pt is leaving facility so staff can be present at home for when pt arrives.
[2023-05-16 18:55] LABS: B Type Natriuretic Peptide 46 pg/mL (<100)
== END 2023-05-16 18:32 | disposition home or self-care (01) ==
PROVIDERS: Emergency Provider Student in an Organized Health Care Education/Training Program
DX: R06.00 Dyspnea, unspecified (principal); R51.9 Headache, unspecified; Z20.822 Contact with and (suspected) exposure to COVID-19; Z20.828 Contact with and (suspected) exposure to other viral communicable diseases; R06.02 Shortness of breath
CPT/HCPCS: 0241U; 36415; 71045; 80048; 82803; 83880; 85025; 85379; 93005; 99284

== ENCOUNTER 2023-08-02 05:54 | Inpatient (IN) | payer MEDICARE, MEDICAID, SELFPAY ==
[2023-08-02] VITALS (13 sets, daily range): BP systolic 107–164; BP diastolic 64–82; PULSE 85–109; RESP 12–20; TEMP 36.6–39; O2SAT 91–96; BMI 27.6
--- NOTE | ~2023-08-02 | XR_ITS ---
EXAMINATION: XR CHEST CLINICAL INFORMATION: Cough. Fever. COMPARISON: 05/16/2023 TECHNIQUE: Frontal view of the chest was obtained. FINDINGS: Sternal wires and surgical clips overlie the cardiac silhouettes. Lung volumes are low with mild subsegmental atelectasis. Cardiac and mediastinal contours are unchanged as compared to prior. Prominence of the pulmonary vasculature is likely related to the low lung lines. No pulmonary edema. No new focal airspace consolidation. No pneumothorax or pleural effusion. Bones are osteopenic. XR/XR chest 1V IMPRESSION: Low lung volumes with mild subsegmental atelectasis. No acute pulmonary findings. No focal airspace consolidation.
--- NOTE | 2023-08-02 06:21 | ECG_ITS ---
Test Reason : SOB Blood Pressure : / mmHG Vent. Rate : 110 BPM Atrial Rate : 110 BPM P-R Int : 156 ms QRS Dur : 068 ms QT Int : 336 ms P-R-T Axes : 070 019 012 degrees QTc Int : 454 ms Sinus tachycardia Otherwise normal ECG When compared with ECG of 16-MAY-2023 16:19, Vent. rate has increased BY 50 BPM Referred By: Manda Broderick Electronically Signed By:DAVID GOMES MD
[2023-08-02 06:49] LABS: MANUAL DIFF FLAG NO
[2023-08-02 06:50] LABS: Basophils Percent Auto 0.1 % (0-2); Eosinophils Percent Auto 0.4 % (0-4); Hematocrit 36.7 % (37.0-47.0); Imm Gran Abs Auto 0.03 X10*3/uL (0.00-0.03); Imm Gran Pct Auto 0.4 % (0.0-0.4); Lymphocytes Absolute Auto 0.8 X10*3/uL (1.2-4.9); Lymphocytes Percent Auto 11.1 % (20-40); Mean Corpuscular HGB Conc 32.7 g/dl (31.0-35.0); Mean Corpuscular Hemoglobin 26.7 pg (27.0-33.0); Mean Corpuscular Volume 81.7 fL (80.0-98.0); Mean Platelet Volume 9.9 fL (9.4-12.3); Monocytes Absolute Auto 0.9 X10*3/uL (0.1-1.2); Neutrophils Absolute Auto 5.6 x10*3/uL (2.0-8.3); Platelet Count 135 X10*3/uL (160-400); Red Blood Count 4.49 X10*6/uL (4.20-5.50); Red Cell Distribution Width 14.7 % (11.0-16.0); White Blood Count 7.3 X10*3/uL (4.8-10.8)
[2023-08-02 06:53] LABS: Lactic Acid 1.5 mmol/L (0.5-2.0)
[2023-08-02 06:56] LABS: INTERNATIONAL NORM RATIO 1.1 (0.9-1.1); Prothrombin Time 12.8 SEC (11.1-13.3)
--- NOTE | 2023-08-02 06:56 | ED.GENADULT ---
HPI - General Adult General Chief complaint: General Medical Stated complaint: fever chills and sob Time Seen by Provider: 08/02/23 06:19 Source: patient and RN notes reviewed Mode of arrival: EMS Limitations: no limitations History of Present Illness HPI narrative: Patient is a 77-year-old female presenting to the ED via EMS from [facility] facility with report of cough, dyspnea, and decreased oxygen saturations. Patient reports nonproductive cough and dyspnea. EMS reports patient found to be hypoxic on room air, oxygen sats increased with oxygen via nasal cannula. Patient is bedbound at baseline. She denies any nausea, vomiting, diarrhea. She denies any urinary symptoms. She denies any chest pain or palpitations. Patient is unable to provide past history. Patient arrived with medication list only. MD complaint: Cough, hypoxia Onset (ago): unknown Associated symptoms: cough Treatments prior to arrival: other (Patient received nebulizer treatment at facility with little improvement and oxygen saturation) Related Data Allergies Allergy/AdvReac Type Severity Reaction Status Date / Time Penicillins Allergy Unknown Verified 08/02/23 06:04 piroxicam Allergy Unknown Verified 08/02/23 06:04 shrimp Allergy Hives Verified 08/02/23 06:04 Sulfa (Sulfonamide Allergy Unknown Verified 08/02/23 06:04 Antibiotics) Review of Systems Review of Systems: As per HPI. Yes all other systems are reviewed and are negative Constitutional: Constitutional: Reports as per HPI [facility] Social History Social History Alcohol intake: never Smoked in Last 30 Days: No Use of substances other than those prescribed or required for medical reasons: No Advance Directives: No Advance Directives Information Provided: No Physical Exam ED Vital Signs: Vital Signs - 24 hr 08/02/23 06:15 08/02/23 06:59 08/02/23 07:28 Temperature 102.2 F H 99.8 F Pulse Rate 109 H 98 94 Respiratory Rate 14 20 Blood Pressure 164/78 H 136/82 Pulse Oximetry 93 94 Oxygen Delivery Method Nasal Cannula Nasal Cannula Oxygen Flow Rate 4 4 08/02/23 08:53 08/02/23 10:03 Temperature 99.0 F Pulse Rate 92 Respiratory Rate 16 Blood Pressure 119/67 Pulse Oximetry 95 Oxygen Delivery Method Nasal Cannula Oxygen Flow Rate 1.5 BMI result Body Mass Index 27.6 Vital signs have been reviewed and appear to be correct. Blood pressure elevated. Heart rate tachycardic. Respiratory rate normal. Temperature febrile. Oxygen saturation hypoxic on room air. Const General: cooperative and no acute distress Orientation/consciousness: oriented to person, oriented to place, oriented to time and patient oriented x3 Limitations: no limitations [facility] Head: Yes normocephalic and Yes atraumatic Ears: external ears normal General nose exam: Normal external nose present Face and sinus: Yes other (right facial droop noted, patient states this is baseline) Mouth: oropharynx normal and moist mucous membranes Throat: Yes uvula midline Eyes Pupils: Equal, round and reactive pupils present Neck Neck: Yes normal visual inspection and Yes supple Chest Chest palpation & inspection: normal palpation of entire chest wall and other (midsternal scar) Resp Effort & Inspection: normal respiratory effort and able to speak in complete sentences Auscultation: diminished lung sounds bilateral Cardio Rate: regular rate Rhythm: regular rhythm Heart sounds: S1 normal heart sound present and S2 normal heart sound present GI Inspection: Yes normal to inspection Palpation (GI): Soft to palpation and nontender Auscultation: normoactive bowel sounds General: Yes no CVA tenderness Back/Spine/Pelvis Back: no CVA tenderness Skin General skin exam: elasticity normal and turgor normal Neuro General: oriented to person, oriented to place, oriented to time, patient oriented x3, moves all extremities, no focal motor deficits and CN's II-XI intact bilaterally Cranial nerves: Yes Equal, round and reactive pupils present Cognition (Neuro): normal cognition Extrem General: Yes full ROM, Yes no pedal edema and Yes no calf tenderness Psych Mental Status: mental status grossly normal Affect: normal affect Thought process: Normal thought process present Course Reevaluation(s) Reevaluation #1: Patient is stating that she does not wish to stay for admission because she has a grandson staying with her. Spoke with Shea, patient's career development manager, via telephone who states that patient does have some baseline confusion and that patient definitely does not have a grandson staying with her, that she does not have regular contact with any family. Discussed this with patient who is agreeable to staying at this time. Shea states she can be contacted at any time with additional questions or concerns. Time: 10:52 Medications Administered Discontinued Medications Generic Name Dose Route Start Last Admin Trade Name Freq PRN Reason Stop Dose Admin Acetaminophen 650 mg 08/02/23 06:58 08/02/23 07:12 Acetaminophen 325 Mg Tablet PO 08/02/23 06:59 650 mg ONCE ONE Administration Albuterol/Ipratropium 3 ml 08/02/23 07:22 08/02/23 07:28 Albuterol/Iprat 2.5/0.5mg 3 Ml Ampul.Neb INHALE 08/02/23 07:23 3 ml ONCE ONE Administration Dexamethasone Sodium Phosphate 6 mg 08/02/23 10:02 08/02/23 10:45 Dexamethasone Sod Phosphate 4 Mg/Ml Vial IVPUSH 08/02/23 10:03 6 mg ONCE ONE Administration Sodium Chloride 1,000 mls @ 999 mls/hr 08/02/23 07:00 08/02/23 09:48 Ns IV 08/02/23 08:00 Infused .Q1H1M MARC Infusion Levofloxacin 750 mg in 150 mls @ 100 mls/hr 08/02/23 06:58 08/02/23 09:48 Levaquin IV 08/02/23 08:27 Infused ONCE ONE Infusion Medical Decision Making Medical Decision Making MDM Narrative: 06:25 Patient is a 77-year-old female presenting to the ED via EMS from [facility] facility with report of cough, dyspnea, and decreased oxygen saturations. On exam patient is awake, A+Ox3, tachycardic, hypoxic to 88-89% on room air, febrile, physical exam findings as above. Attempted to contact patient's facility listed on medication list. Spoke with her clinical career development manager who was unable to provide medical history and gave phone number for nurse. Called nurse @ but no answer, left voicemail for nurse to call the ED. Given reported symptoms and physical exam findings, initial differential includes sepsis, pneumonia, UTI, CHF exacerbation, asthma or COPD exacerbation. Will order Tylenol, abx, fluids, labs including cultures and lactic, CXR, viral swabs. 07:35 Labs notable for no leukocytosis but left shift noted, no lactic acidosis, BNP mildly elevated, remainder of CMP pending. Covid swab positive. X-ray notable for atalectasis but no acute abnormalities. My interpretation is in agreement with the radiologist's interpretation. Received return phone call from Carmen, patient's nurse who reports history of COPD, noncompliant with CPAP, wears O2 @ 3lpm via NC at baseline, CHF, HTN, CVA, T2DM, neuropathy, OA, HLD, CKD, anxiety and depression, recently diagnosed with a new thyroid mass for which she is still being worked up. Patient accepted by Dr. Bonilla for admission for sepsis/covid. Differential Diagnosis Differential Diagnoses: The differential diagnosis associated with the presentation includes As per [facility] Admission/Observation Consideration of admission/observation: Escalation of care including admission/observation considered Consult Healthcare Provider Management of the patient was discussed with: Hospitalist (Dr. Bonilla) Lab Data [facility] Lab Attestation statement: I reviewed the patient's lab results. As per [facility] 08/02/23 06:34 08/02/23 07:22 Labs: Lab Results 08/02/23 08/02/23 Range/Units 06:34 07:22 WBC 7.3 (4.8-10.8) X10*3/uL RBC 4.49 (4.20-5.50) X10*6/uL Hgb 12.0 (12.0-16.0) g/dl Hct 36.7 L (37.0-47.0) % MCV 81.7 (80.0-98.0) fL MCH 26.7 L (27.0-33.0) pg MCHC 32.7 (31.0-35.0) g/dl RDW 14.7 (11.0-16.0) % Plt Count 135 L (160-400) X10*3/uL MPV 9.9 (9.4-12.3) fL Immature Gran % (Auto) 0.4 (0.0-0.4) % Neut % (Auto) 76.0 H (45-73) % Lymph % (Auto) 11.1 L (20-40) % Emmons % (Auto) 12.0 H (2-11) % Eos % (Auto) 0.4 (0-4) % Baso % (Auto) 0.1 (0-2) % Lymph # (Auto) 0.8 L (1.2-4.9) X10*3/uL Emmons # (Auto) 0.9 (0.1-1.2) X10*3/uL Eos # (Auto) 0.0 (0.0-0.4) X10*3/uL Baso # (Auto) 0.0 (0.0-0.2) X10*3/uL Abs Immat Gran (auto) 0.03 (0.00-0.03) X10*3/uL Absolute Neuts (auto) 5.6 (2.0-8.3) x10*3/uL Absolute Nucleated RBC 0.000 (0.0-0.012) X10*3/uL Nucleated RBC % (auto) 0.0 (0.0-0.2) /100WBC PT 12.8 (11.1-13.3) SEC INR 1.1 (0.9-1.1) Sodium 139 (135-145) mmol/L Potassium 3.3 (3.3-5.1) mmol/L Chloride 105 (96-108) mmol/L Carbon Dioxide 26 (22-29) mmol/L Anion Gap 11 L (12-20) BUN 7 L (9-16) mg/dL Creatinine 0.81 (0.5-1.4) mg/dL Estim Creat Clear Calc 63.2 Estimated GFR > 60 Random Glucose 112 (60-115) mg/dL Lactic Acid 1.5 (0.5-2.0) mmol/L Calcium 7.9 L D (8.4-10.2) mg/dL Total Bilirubin 0.3 (0.0-1.0) mg/dL AST 14 (5-31) U/L ALT 13 (0-31) U/L Alkaline Phosphatase 67 (39-117) U/L Troponin I High Sens 9.8 D (<3.5-17.0) ng/L B-Natriuretic Peptide 154 H (<100) pg/mL Total Protein 6.4 L (6.5-8.0) g/dL Albumin 3.2 L (3.5-5.0) g/dL Influenza Type A (PCR) NEGATIVE (Negative) Influenza Type B (PCR) NEGATIVE (Negative) RSV RNA Qual (PCR) NEGATIVE (Negative) SARS-CoV-2 RNA (RT-PCR) POSITIVE A (Negative) Independent Interpretation I performed an independent interpretation of an: EKG (sinus tachycardia, rate 110 bpm, normal MD and QT intervals) and Plain X-Ray Interpretation: Chest x-ray shows low lung volumes with atalectasis, no acute findings Radiology Impression Discussion of test interpretation with radiology: I have reviewed the radiologist's reading. Radiologist Impression: XR/XR chest 1V IMPRESSION: Low lung volumes with mild subsegmental atelectasis. No acute pulmonary findings. No focal airspace consolidation. Independent Historian Clinical information obtained from an independent historian. History obtained from or confirmed by: Other (Carmen, nurse) External Record Review External record reviewed: Inpatient record, Office record and Outpatient record Prescription Management I considered prescription management with: Antibiotic Critical Care Time Critical Care Time Critical Care Time: Yes Total Critical Care Time: 45 Attestation: I have personally provided critical care time exclusive of time spent on separately billable procedures. Time includes review of lab data, radiology results, discussion with consultants, and monitoring for potential decompensation. Intervention performed as documented. Discharge Plan Discharge Clinical Impression: COVID-19, Sepsis Patient Disposition: Admitted As Inpatient
[2023-08-02 07:09] LABS: B Type Natriuretic Peptide 154 pg/mL (<100)
[2023-08-02 07:10] LABS: Troponin-I High Sensitivity 9.8 ng/L (<3.5-17.0)
[2023-08-02] MEDS: Acetaminophen 325 MG TABLET 650 MG PO (07:12)
[2023-08-02] MEDS: 0.9 % Sodium Chloride 1,000 ML 999 ML IV (07:16)
[2023-08-02 07:27] LABS: Influenza A PCR NEGATIVE (Negative); Influenza B PCR NEGATIVE (Negative); Resp Syncy Virus RNA Qual PCR NEGATIVE (Negative); SARS COV2 PCR INHOUSE POSITIVE (Negative)
[2023-08-02] MEDS: levoFLOXacin/D5W 750 MG/150 ML PIGGYBACK 100 MG IV (07:27)
[2023-08-02] MEDS: Albuterol/Iprat 2.5/0.5MG 3 ML AMPUL.NEB INHALE (07:28)
[2023-08-02 07:39] LABS: Anion Gap 11 (12-20)
[2023-08-02 07:43] LABS: Alanine Aminotransferase 13 U/L (0-31); Albumin Level 3.2 g/dL (3.5-5.0); Alkaline Phosphatase 67 U/L (39-117); Aspartate Amino Transferase 14 U/L (5-31); Bilirubin Total 0.3 mg/dL (0.0-1.0); Blood Urea Nitrogen 7 mg/dL (9-16); Calcium 7.9 mg/dL (8.4-10.2); Carbon Dioxide 26 mmol/L (22-29); Chloride 105 mmol/L (96-108); Creatinine Clr Calc Pharmacy 63.2; Estimated Glomerular Filt Rate > 60; Glucose Random 112 mg/dL (60-115); Potassium 3.3 mmol/L (3.3-5.1); Sodium 139 mmol/L (135-145); Total Protein 6.4 g/dL (6.5-8.0)
--- NOTE | 2023-08-02 07:48 | PC.NURSE ---
pt power of consultant teacher called for update on pt. also stated that gave pt at home covid test yesterday that came back positive. left number with t/teddy Schuster (POA): [phone]
--- NOTE | 2023-08-02 08:15 | PC.NURSE ---
assumed care of pt at 0700. pt a&o, slow to respond. pt comes from home with home care. 20G IV to right hand placed by EMS. 20G IV to RAC placed by previous shift RN. labs drawn and sent. fluids running and pt medicated per sep. pt resting quietly on stretcher in no apparent distress. rr even/unlabored.call coe within reach. plan of care ongoing.
--- NOTE | 2023-08-02 10:01 | MHC.EDTECH ---
pt placed on purewick with excellent tolerance. rn aware
[2023-08-02] MEDS: dexAMETHasone sod phosphate 4 MG/ML VIAL 6 MG IVPUSH (10:45)
--- NOTE | 2023-08-02 11:21 | P.HPHOSP_ITS ---
History of Present Illness Date of Service: 08/02/23 Attending physician on admission: Manolo Lozano Chief Complaint: SOB Pt is a 77-year-old female with a PMH significant for COPD,?CHF unspecified, hx of CVA, [id number] diabetes type 2, HLD, and overactive bladder who presents to the ED for evaluation of fever and low oxygen saturation. Patient presents from home where she lives by herself with 22-hour care from [facility] and another state agency. Likely has some type of unspecified/undiagnosed dementia, is confused at baseline. Is bed-bound at baseline. Patient is alert and oriented to self only, not to place, time, or situation. Patient is thus unable to provide accurate HPI, which instead taken from chart, provider, and home nurse review. Patient apparently noted to have nonproductive cough, dyspnea, and decreased oxygen saturation at home. Is chronically on 2-3 L NC, but was noted to be satting in the 80s earlier this morning on her home O2. Was sent in to the ED for further evaluation by her home health aide. Patient herself has no acute medical complaints, and states she wants to go home because she needs to be there for her grandson who is staying with her. However, ED clinician contacted home health aide who states patient does not have a grandson staying with her, and in fact does not have any regular contact with her family. In the ED pt was febrile up to 102.2, tachycardic to 109, and satting at 88-89% on RA. Labs were significant for testing positive for COVID and mildly elevated BNP at 154, otherwise grossly unremarkable and around baseline. No leukocytosis. No electrolyte abnormalities. Renal function, hepatic function WNL. CXR showed mild subsegmental atelectasis, but no acute pulmonary findings with no focal airspace consolidation. Pt was treated with acetaminophen, IVF, levofloxacin, DuoNeb, and dexamethasone. Pt will be admitted to the hospital for treatment further evaluation of acute on chronic hypoxic respiratory failure in the setting of COVID infection. Review of Systems 2 Review of Systems: Unable to obtain due to patient's mentation [facility] Medical History (Updated 08/02/23 @ 12:36 by LINDY Garrett) COPD (chronic obstructive pulmonary disease) Non-insulin dependent type 2 diabetes mellitus Peripheral neuropathy HLD (hyperlipidemia) CVA (cerebral vascular accident) Heart failure, unspecified Social History Household Members: Caregiver Housing: House Unable to assess alcohol history related to: Unknown Alcohol intake: never Patient Tobacco Use Status: Never used Tobacco Smoked in Last 30 Days: No Use of substances other than those prescribed or required for medical reasons: Unknown Currently Displaying Signs/Symptoms of Drug Intoxication Withdrawal: No Advance Directives: No Advance Directives Information Provided: No Recently lost weight without trying: Unsure Nutrition Risks: No Nutritional Risk Patient : No : No Poor oral hygiene: No service: No Meds Allergies Allergy/AdvReac Type Severity Reaction Status Date / Time Penicillins Allergy Unknown Verified 08/02/23 06:04 piroxicam Allergy Unknown Verified 08/02/23 06:04 shrimp Allergy Hives Verified 08/02/23 06:04 Sulfa (Sulfonamide Allergy Unknown Verified 08/02/23 06:04 Antibiotics) Home Medications Medication Instructions Recorded Confirmed Last Taken Type acetaminophen 500 mg tablet 500 mg PO BID 08/02/23 08/02/23 Unknown History albuterol sulfate 2.5 mg/3 mL 2.5 mg inhalation Q6H PRN 08/02/23 08/02/23 Unknown History (0.083 %) solution for nebulization Shortness Of Breath Or Wheezing aspirin 81 mg tablet,delayed 81 mg PO QAM 08/02/23 08/02/23 Unknown History release atorvastatin 80 mg tablet 80 mg PO QPM 08/02/23 08/02/23 Unknown History cholecalciferol (vitamin D3) 25 25 mcg PO DAILY 08/02/23 08/02/23 Unknown History mcg (1,000 unit) tablet clopidogrel 75 mg tablet 75 mg PO QAM 08/02/23 08/02/23 Unknown History cyanocobalamin (vitamin B-12) 500 500 mcg PO QAM 08/02/23 08/02/23 Unknown History mcg tablet fluoxetine 20 mg capsule 20 mg PO QAM 08/02/23 08/02/23 Unknown History fluticasone propionate 220 1 puff inhalation BID 08/02/23 08/02/23 Unknown History mcg/actuation HFA aerosol inhaler (Flovent HFA) folic acid 400 mcg tablet 0.4 mg PO QAM 08/02/23 08/02/23 Unknown History furosemide 20 mg tablet 20 mg PO QAM 08/02/23 08/02/23 Unknown History glipizide 5 mg tablet, extended 5 mg PO QAM 08/02/23 08/02/23 Unknown History release 24 hr metoprolol succinate 25 mg 25 mg PO DAILY 08/02/23 08/02/23 Unknown History tablet,extended release 24 hr oxybutynin chloride 5 mg 5 mg PO QAM 08/02/23 08/02/23 Unknown History tablet,extended release 24 hr pregabalin 150 mg capsule 150 mg PO TID 08/02/23 08/02/23 Unknown History trazodone 100 mg tablet 100 mg PO BEDTIME 08/02/23 08/02/23 Unknown History zinc oxide 20 % topical ointment 1 appl topical DAILY PRN Wound 08/02/23 08/02/23 Unknown History Healing Physical Exam 2 Vital Signs and Narrative: Vital Signs: Last Vital Signs Temp 99.0 F 08/02/23 08:53 Pulse 92 08/02/23 10:03 Resp 16 08/02/23 10:03 BP 119/67 08/02/23 10:03 Pulse Ox 95 08/02/23 10:03 O2 Del Method Nasal Cannula 08/02/23 10:03 O2 Flow Rate 1.5 08/02/23 10:03 BMI result Body Mass Index 27.6 Constitutional: Alert, confused, in no acute distress. Mental Status: Oriented to person only, not to place, time, or situation. Eyes: Pupils are equal, round, and reactive to light. Ear, Nose, and Throat: Oropharynx clear, mucous membranes moist. Ears and nose without deformities. Trachea midline. Respiratory: Mild expiratory wheezing bilaterally. Cardiovascular: S1, S2 regular. 3/6 murmur heard at left sternal border. Gastrointestinal: Abdomen soft, non-tender, non-distended. Normal bowel sounds. Neurologic: Cranial nerves II-XII are grossly intact bilaterally. No focal neurological deficits. Moves all extremities spontaneously. Skin: Warm, dry. Musculoskeletal: No cyanosis or clubbing. Extremities: No edema. Psychiatric: Pleasantly confused. Results Labs 08/03/23 06:46 08/03/23 06:46 Labs: Laboratory Results - last 24 hr 08/02/23 08/02/23 06:34 07:22 MCV 81.7 MCH 26.7 L MCHC 32.7 RDW 14.7 Plt Count 135 L MPV 9.9 Immature Gran % (Auto) 0.4 Neut % (Auto) 76.0 H Lymph % (Auto) 11.1 L Gregory % (Auto) 12.0 H Eos % (Auto) 0.4 Baso % (Auto) 0.1 Lymph # (Auto) 0.8 L Gregory # (Auto) 0.9 Eos # (Auto) 0.0 Baso # (Auto) 0.0 Abs Immat Gran (auto) 0.03 Absolute Neuts (auto) 5.6 Absolute Nucleated RBC 0.000 Nucleated RBC % (auto) 0.0 PT 12.8 INR 1.1 Anion Gap 11 L Estim Creat Clear Calc 63.2 Estimated GFR > 60 Random Glucose 112 Lactic Acid 1.5 Calcium 7.9 L D Total Bilirubin 0.3 AST 14 ALT 13 Alkaline Phosphatase 67 B-Natriuretic Peptide 154 H Total Protein 6.4 L Albumin 3.2 L Influenza Type A (PCR) NEGATIVE Influenza Type B (PCR) NEGATIVE RSV RNA Qual (PCR) NEGATIVE SARS-CoV-2 RNA (RT-PCR) POSITIVE A Imaging Radiologist's Impressions: Impressions Chest X-Ray 08/02/23 06:50 IMPRESSION: Low lung volumes with mild subsegmental atelectasis. No acute pulmonary findings. No focal airspace consolidation. Assessment and Plan (1) Hypoxia: Status: Acute (2) COVID: Status: Acute Plan Pt is a 77-year-old female with a PMH significant for COPD,?CHF unspecified, hx of CVA, [id number] diabetes type 2, HLD, and overactive bladder who presents to the ED for evaluation of fever and low oxygen saturation. Pt will be admitted to the hospital for treatment further evaluation of acute on chronic hypoxic respiratory failure in the setting of COVID infection. Acute on chronic hypoxic respiratory failure in the setting of COVID infection Patient hypoxic, satting in mid to upper 80s home 3L O2, dyspnea, nonproductive cough, fever Will treat with dexamethasone, remdesivir, DuoNebs p.r.n. Titrate supplemental O2 >92, wean as tolerated Monitor respiratory status Confusion No formal diagnosis of dementia, though has some confusion at baseline Unclear if at baseline or more confused Possibly secondary to COVID infection Monitor mentation Viral sepsis Pt tested positive for COVID, is febrile, tachycardic No clear source of bacterial infection: No leukocytosis, CXR with no acute findings or consolodation, lactic acid WNL at 1.5 Received levofloxacin in the ED No indication to continue antibiotics COPD Not in acute exacerbation Patient with mild expiratory wheezing DuoNebs p.r.n. Continue home inhalers Titrate supplemental O2 >92, wean as tolerated CHF unspecified Not in acute exacerbation BNP only slightly elevated, patient appears euvolemic Continue home furosemide Hx of CVA/HLD Continue statin, Plavix, aspirin Non-insulin dependent diabetes type 2 Continue glipizide Sliding-scale insulin, diabetic diet Full Code Attending:?Dr. Lozano DVT Prophylaxis: Lovenox Pt will require a hospitalization of at least two nights for treatment of?acute on chronic hypoxic respiratory failure in the setting of COVID infection. Patient has significant comorbidities and will be treated with remdesivir, increased supplemental oxygen demand a DuoNebs, and IV steroids. Quality Stroke Does the patient have a stroke diagnosis?: No VTE Prior VTE?: No VTE Risk Level:: Medical - moderate - high VTE Device Contraindication: Treatment Not Indicated VTE Drug Contraindication: N/A - Med Ordered
--- NOTE | 2023-08-02 12:11 | PHA.MEDREC ---
Pharmacy Consult ? Medication Reconciliation Pharmacy has completed the medication reconciliation. used med list sent from facility. Called the RN that is on the Med list to verify metoprolol, oxycodone, and pregabalin. She reported that it is metoprolol succinate, not tartrate, she reported that the patient is no longer on oxycodone, and that the pregabalin is 150mg TID, not 50mg.
[2023-08-02 12:17] LABS: Appearance Urine Cloudy; Color Urine Yellow; Glucose Urine UA Negative (Negative); Leukocyte Esterase Urine Moderate (2+) (Negative); Nitrite Urine Negative (Negative); PH 6.5 (5.0-9.0); Specific Gravity - Urine 1.015 (1.005-1.025); UMIC TRIGGER UACC YES; Urine Blood Trace (Negative); Urine Ketones Negative (Negative); Urine Protein 30 (1+) mg/dL (Neg-Trace)
[2023-08-02] MEDS: Aspirin Enteric Coated 81 MG TABLET.DR PO (12:22)
[2023-08-02] MEDS: Enoxaparin Sodium 40 MG/0.4 ML SYRINGE SUBCUT (12:28)
[2023-08-02] MEDS: FLUoxetine HCl 20 MG CAPSULE PO (12:28)
[2023-08-02] MEDS: Clopidogrel Bisulfate 75 MG TABLET PO (12:28)
[2023-08-02] MEDS: Furosemide 20 MG TABLET PO (12:28)
--- NOTE | 2023-08-02 12:34 | PC.NURSE ---
pt medicated per sep. called pharmacy for meds not in ED pyxis.
[2023-08-02 12:44] LABS: RBC Urine 0-2 /HPF (0-2); UACC Culture Trigger YES
[2023-08-02 12:46] LABS: Bacteria Urine 4+ (None Seen); Hyaline Casts Urine 0-2 /LPF (0-2)
[2023-08-02] MEDS: glipiZIDE XL 5 MG TAB.ER.24 PO (13:00)
[2023-08-02] MEDS: oxyBUTYnin chloride ER 5 MG TAB.ER.24 PO (13:00)
[2023-08-02] MEDS: Cyanocobalamin (Vitamin B-12) 500 MCG TABLET PO (13:00)
[2023-08-02] MEDS: Remdesivir 200 MG in 0.9 % Sodium Chloride 210 ML 105 MG IV (13:19)
[2023-08-02 13:29] LABS: Glucose, Whole Blood 104 mg/dL (60-115)
--- NOTE | 2023-08-02 14:28 | PC.NURSE ---
pt sitting up in bed eating lunch. rr even/unlabored. awaiting bed assignment. plan of care ongoing.
[2023-08-02] MEDS: Throat Lozenge, Medicated LOZENGE 1 LOZENGE MUCOUS MEM (15:11)
--- NOTE | 2023-08-02 18:01 | MHC.EDTECH ---
pt was set up with dinner and food cut up
[2023-08-02] MEDS: Insulin Lispro 100 UNIT/ML 3 ML VIAL SUBCUT ×2 (18:03→21:37)
[2023-08-02 18:06] LABS: Glucose, Whole Blood 169 mg/dL (60-115)
[2023-08-02] MEDS: Potassium Chloride Packet 20 MEQ PACKET PO (18:32)
--- NOTE | 2023-08-02 18:38 | PC.NURSE ---
pt consumed good portion of dinner. purewick draining well. pt sitting comfortably in bed. medicated per sep. pt asking about Oralia, her certified social workers in health care? tv on, rr even/unlabored. call coe within pt reach. awaiting bed assignment.
--- NOTE | 2023-08-02 20:00 | MHC.EDTECH ---
2000 rounding done ,vitals taken ,pt was inconient of urine ,care given and bedding change ,Patient is watching television ,no apparent distress noted .
[2023-08-02] MEDS: Fluticasone Propionate 250 MCG BLST.W.DEV 1 PUFF INHALE (20:04)
--- NOTE | 2023-08-02 20:52 | PC.NURSE ---
Pt cleaned and dried. Report done in the chart. Pt being transported at this time.
[2023-08-02 21:18] LABS: Glucose, Whole Blood 205 mg/dL (60-115)
[2023-08-02] MEDS: traZODone HCL 100 MG TABLET PO (21:37)
[2023-08-02] MEDS: Atorvastatin Calcium 80 MG TABLET PO (21:37)
[2023-08-03] VITALS (8 sets, daily range): BP systolic 127–165; BP diastolic 63–82; PULSE 65–107; RESP 16–20; TEMP 36.1–37.2; O2SAT 85–97
[2023-08-03] MEDS: 0.9 % Sodium Chloride Flush 3 ML SYRINGE IVFLUSH ×4 (01:29→23:38)
[2023-08-03 07:14] LABS: Hematocrit 40.5 % (37.0-47.0); Mean Corpuscular HGB Conc 32.1 g/dl (31.0-35.0); Mean Corpuscular Hemoglobin 26.5 pg (27.0-33.0); Mean Corpuscular Volume 82.5 fL (80.0-98.0); Mean Platelet Volume 9.8 fL (9.4-12.3); Platelet Count 146 X10*3/uL (160-400); Red Blood Count 4.91 X10*6/uL (4.20-5.50); Red Cell Distribution Width 14.7 % (11.0-16.0); White Blood Count 5.2 X10*3/uL (4.8-10.8)
[2023-08-03 07:49] LABS: Anion Gap 14 (12-20); Blood Urea Nitrogen 15 mg/dL (9-16); Calcium 9.4 mg/dL (8.4-10.2); Carbon Dioxide 30 mmol/L (22-29); Chloride 103 mmol/L (96-108); Estimated Glomerular Filt Rate > 60; Glucose Random 85 mg/dL (60-115); Potassium 4.5 mmol/L (3.3-5.1); Sodium 142 mmol/L (135-145)
[2023-08-03] MEDS: Aspirin Enteric Coated 81 MG TABLET.DR PO (07:49)
[2023-08-03] MEDS: FLUoxetine HCl 20 MG CAPSULE PO (07:49)
[2023-08-03] MEDS: Folic Acid 1 MG TABLET 0.5 MG PO (07:49)
[2023-08-03] MEDS: Clopidogrel Bisulfate 75 MG TABLET PO (07:49)
[2023-08-03] MEDS: Cyanocobalamin (Vitamin B-12) 500 MCG TABLET PO (07:49)
[2023-08-03] MEDS: glipiZIDE XL 5 MG TAB.ER.24 PO (07:50)
[2023-08-03] MEDS: Cholecalciferol (Vitamin D3) 25 MCG TABLET PO (07:50)
[2023-08-03] MEDS: Furosemide 20 MG TABLET PO (07:50)
[2023-08-03] MEDS: dexAMETHasone sod phosphate 4 MG/ML VIAL 6 MG IVPUSH (07:50)
[2023-08-03] MEDS: oxyBUTYnin chloride ER 5 MG TAB.ER.24 PO (07:51)
[2023-08-03] MEDS: Fluticasone Propionate 250 MCG BLST.W.DEV 1 PUFF INHALE ×2 (07:56→20:39)
[2023-08-03 08:03] LABS: Glucose, Whole Blood 87 mg/dL (60-115)
[2023-08-03] MEDS: Enoxaparin Sodium 40 MG/0.4 ML SYRINGE SUBCUT (12:04)
[2023-08-03 12:09] LABS: Glucose, Whole Blood 127 mg/dL (60-115)
--- NOTE | 2023-08-03 13:15 | MHC.CM.PN ---
IMM 08/03/23, sent to palliative care nurse, Shea Wakefield via c. mail, and discussed on the phone. Rosi is confused at this time, caregiver describes her as somewhat confused at her base line. 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 22 hours a day, provided by: [employer] and [employer], (through [employer]). She uses a steve lift for transfers, and is dependent for all ADL's. She is on home O2, . She does not have a HCP or guardian. She has a nurse, and an OT and PT that visit her once a week. PCP is Cliff Walsh. DP is home, resume services. Pt. will need ambulance transport home upon DC.
[2023-08-03] MEDS: Remdesivir 100 MG in 0.9 % Sodium Chloride 230 ML 115 MG IV (13:52)
[2023-08-03 16:33] LABS: Glucose, Whole Blood 165 mg/dL (60-115)
[2023-08-03] MEDS: Insulin Lispro 100 UNIT/ML 3 ML VIAL SUBCUT ×2 (16:43→21:47)
--- NOTE | 2023-08-03 17:07 | P.PNIM_ITS ---
Subjective Subjective Date of Service: 08/03/23 Interval History: covid Review of Systems still hypoxic seems similar, still seems plesantly confused . Physical Exam 2 Vital Signs: Vital Signs: Last Vital Signs Temp 97.0 F 08/03/23 15:05 Pulse 73 08/03/23 15:05 Resp 16 08/03/23 15:05 BP 127/74 08/03/23 15:05 Pulse Ox 95 08/03/23 15:05 O2 Del Method Nasal Cannula 08/03/23 15:05 O2 Flow Rate 2 08/03/23 15:05 BMI result Body Mass Index 27.6 Appearance: awake ,pleasantly confused cvs: rrr, [id number]. res: air enrty fair ,slightly diminshed at bases. abd: no rebound or guarding ,nt, bs present. ext pulses present , no cyanosis . neuro: axo3 , nonfocal. Objective Data Active Medications Acetaminophen (Acetaminophen 325 Mg Tablet) 650 mg PO Q6H PRN PRN Reason: Pain, Mild (Pain Scale 1-3) Albuterol Sulfate (Albuterol Sulfate (0.083%) 2.5 Mg/3 Ml Vial.Neb) 2.5 mg INHALE Q6H PRN PRN Reason: Shortness Of Breath Or Wheezing Albuterol/Ipratropium (Albuterol/Iprat 2.5/0.5mg 3 Ml Ampul.Neb) 3 ml INHALE RQ4H WHILE AWAKE PRN PRN Reason: Shortness of Breath/Wheezing Aspirin (Aspirin Enteric Coated 81 Mg Tablet.) 81 mg PO DAILY [facility] Last Admin: 08/03/23 07:49 Dose: 81 mg Documented By: BASHIR Atorvastatin Calcium (Atorvastatin Calcium 80 Mg Tablet) 80 mg PO BEDTIME [facility] Last Admin: 08/02/23 21:37 Dose: 80 mg Documented By: WALLACE Benzocaine (Throat Lozenge, Medicated Lozenge) 1 lozenge MUCOUS MEM Q2H PRN PRN Reason: Sore Throat Last Admin: 08/02/23 15:11 Dose: 1 lozenge Documented By: ADRIA Benzonatate (Benzonatate 100 Mg Capsule) 100 mg PO TID PRN PRN Reason: Cough Clopidogrel Bisulfate (Clopidogrel Bisulfate 75 Mg Tablet) 75 mg PO DAILY [facility] Last Admin: 08/03/23 07:49 Dose: 75 mg Documented By: BASHIR Cyanocobalamin (Cyanocobalamin (Vitamin B-12) 500 Mcg Tablet) 500 mcg PO DAILY [facility] Last Admin: 08/03/23 07:49 Dose: 500 mcg Documented By: BASHIR Dexamethasone Sodium Phosphate (Dexamethasone Sod Phosphate 4 Mg/Ml Vial) 6 mg IVPUSH DAILY [facility] Last Admin: 08/03/23 07:50 Dose: 6 mg Documented By: BASHIR Dextrose (Dextrose 50 % 25 Gm/50 Ml Syringe) 25 gm IVPUSH Q15M PRN; Protocol PRN Reason: per Hypoglycemia Standing Ord. Docusate Sodium (Docusate Sodium 100 Mg Capsule) 100 mg PO DAILY PRN PRN Reason: Constipation Enoxaparin Sodium (Enoxaparin Sodium 40 Mg/0.4 Ml Syringe) 40 mg SUBCUT Q24H [facility] Last Admin: 08/03/23 12:04 Dose: 40 mg Documented By: BASHIR Fluoxetine HCl (Fluoxetine Hcl 20 Mg Capsule) 20 mg PO DAILY [facility] Last Admin: 08/03/23 07:49 Dose: 20 mg Documented By: BASHIR Fluticasone Propionate (Fluticasone Propionate 250 Mcg Blst.W.Dev) 1 puff INHALE RBID [facility] Last Admin: 08/03/23 07:56 Dose: 1 puff Documented By: SIMON Folic Acid (Folic Acid 1 Mg Tablet) 0.5 mg PO DAILY [facility] Last Admin: 08/03/23 07:49 Dose: 0.5 mg Documented By: BASHIR Furosemide (Furosemide 20 Mg Tablet) 20 mg PO DAILY [facility]; Protocol Last Admin: 08/03/23 07:50 Dose: 20 mg Documented By: BASHIR Glipizide (Glipizide Xl 5 Mg Tab.Er.24) 5 mg PO DAILY [facility] Last Admin: 08/03/23 07:50 Dose: 5 mg Documented By: BASHIR Glucose (Glucose Gel 15 Gm Gel..Gram.) 15 gm PO Q15M PRN; Protocol PRN Reason: per Hypoglycemia Standing Ord. Remdesivir 100 mg/ Sodium (Chloride) 230 mls @ 115 mls/hr IV Q24H [facility] Stop: 08/04/23 14:59 Last Infusion: 08/03/23 15:52 Dose: Infused Documented By: BASHIR Insulin Human Lispro (Insulin Lispro 100 Unit/Ml 3 Ml Vial) 0 unit SUBCUT QIDACHS [facility]; Protocol Last Admin: 08/03/23 16:43 Dose: 2 unit Documented By: BASHIR Melatonin (Melatonin 3 Mg Tablet) 6 mg PO BEDTIME PRN PRN Reason: Insomnia Ondansetron HCl (Ondansetron Hcl 4 Mg/2 Ml Vial) 4 mg IVPUSH Q8H PRN PRN Reason: Nausea and Vomiting Oxybutynin Chloride (Oxybutynin Chloride Er 5 Mg Tab.Er.24) 5 mg PO DAILY [facility] Last Admin: 08/03/23 07:51 Dose: 5 mg Documented By: BASHIR Sodium Chloride (0.9 % Sodium Chloride Flush 3 Ml Syringe) 3 ml IVFLUSH QSHIFT [facility] Last Admin: 08/03/23 16:43 Dose: 3 ml Documented By: BASHIR Trazodone HCl (Trazodone Hcl 100 Mg Tablet) 100 mg PO BEDTIME [facility] Last Admin: 08/02/23 21:37 Dose: 100 mg Documented By: WALLACE Vitamin D (Cholecalciferol (Vitamin D3) 25 Mcg Tablet) 25 mcg PO DAILY [facility] Last Admin: 08/03/23 07:50 Dose: 25 mcg Documented By: BASHIR Labs 08/03/23 06:46 08/03/23 06:46 Labs: Laboratory Results - last 24 hr 08/02/23 08/02/23 08/03/23 17:55 21:14 06:46 MCV 82.5 MCH 26.5 L MCHC 32.1 RDW 14.7 Plt Count 146 L MPV 9.8 Absolute Nucleated RBC 0.000 Nucleated RBC % (auto) 0.0 Anion Gap 14 Estim Creat Clear Calc 61.0 Estimated GFR > 60 POC Glucose 169 H 205 H Random Glucose 85 Calcium 9.4 D 08/03/23 08/03/23 08/03/23 07:41 11:39 16:28 MCV MCH MCHC RDW Plt Count MPV Absolute Nucleated RBC Nucleated RBC % (auto) Anion Gap Estim Creat Clear Calc Estimated GFR POC Glucose 87 127 H 165 H Random Glucose Calcium Microbiology Microbiology Results: Microbiology 08/02/23 Unknown Urine Culture - Final Urine clean catch - Urine echeverria top 08/02/23 06:45 Blood Culture - Preliminary Blood - Venous No growth after 24 hours. 08/02/23 06:34 Blood Culture - Preliminary Blood - Venous No growth after 24 hours. Assessment and Plan (1) COVID: Status: Acute (2) Hypoxia: Status: Acute Assessment and Plan: 77-year-old female with a PMH significant for COPD,?CHF unspecified, hx of CVA, [id number] diabetes type 2, HLD, and overactive bladder who presents to the ED for evaluation of fever and low oxygen saturation. Pt will be admitted to the hospital for treatment further evaluation of acute on chronic hypoxic respiratory failure in the setting of COVID infection. Acute on chronic hypoxic respiratory failure in the setting of COVID infection Patient hypoxic, satting in mid to upper 80s home 3L O2, dyspnea, nonproductive cough, fever Will treat with dexamethasone, remdesivir, DuoNebs p.r.n. Titrate supplemental O2 >92, wean as tolerated Monitor respiratory status Confusion No formal diagnosis of dementia, though has some confusion at baseline Unclear if at baseline or more confused Possibly secondary to COVID infection Monitor mentation Viral sepsis Pt tested positive for COVID, is febrile, tachycardic No clear source of bacterial infection: No leukocytosis, CXR with no acute findings or consolodation, lactic acid WNL at 1.5 Received levofloxacin in the ED No indication to continue antibiotics COPD Not in acute exacerbation Patient with mild expiratory wheezing DuoNebs p.r.n. Continue home inhalers Titrate supplemental O2 >92, wean as tolerated CHF unspecified Not in acute exacerbation BNP only slightly elevated, patient appears euvolemic Continue home furosemide Hx of CVA/HLD Continue statin, Plavix, aspirin Non-insulin dependent diabetes type 2 Continue glipizide Sliding-scale insulin, diabetic diet Full Code DVT Prophylaxis: Lovenox ongoing hopsitilisationneed :acute on chronic hypoxic respiratory failure in the setting of COVID infection. Patient has significant comorbidities and will be treated with remdesivir, increased supplemental oxygen demand a DuoNebs, and IV steroids. Quality Stroke Does the patient have a stroke diagnosis?: No VTE Prior VTE?: No VTE Risk Level:: Medical - moderate - high VTE Device Contraindication: Treatment Not Indicated VTE Drug Contraindication: N/A - Med Ordered
[2023-08-03 20:34] LABS: Glucose, Whole Blood 212 mg/dL (60-115)
[2023-08-03] MEDS: traZODone HCL 100 MG TABLET PO (21:47)
[2023-08-03] MEDS: Atorvastatin Calcium 80 MG TABLET PO (21:47)
[2023-08-04 03:55] VITALS: BP 128/60; PULSE 67; RESP 17; TEMP 36.3; O2SAT 97
[2023-08-04 07:38] VITALS: BP 144/62; PULSE 65; RESP 18; TEMP 36.2; O2SAT 95
[2023-08-04 07:51] LABS: Glucose, Whole Blood 106 mg/dL (60-115)
[2023-08-04] MEDS: Aspirin Enteric Coated 81 MG TABLET.DR PO (09:24)
[2023-08-04] MEDS: oxyBUTYnin chloride ER 5 MG TAB.ER.24 PO (09:24)
[2023-08-04] MEDS: Cholecalciferol (Vitamin D3) 25 MCG TABLET PO (09:24)
[2023-08-04] MEDS: FLUoxetine HCl 20 MG CAPSULE PO (09:24)
[2023-08-04] MEDS: Cyanocobalamin (Vitamin B-12) 500 MCG TABLET PO (09:24)
[2023-08-04] MEDS: glipiZIDE XL 5 MG TAB.ER.24 PO (09:24)
[2023-08-04] MEDS: Clopidogrel Bisulfate 75 MG TABLET PO (09:24)
[2023-08-04] MEDS: Furosemide 20 MG TABLET PO (09:25)
[2023-08-04] MEDS: Folic Acid 1 MG TABLET 0.5 MG PO (09:25)
[2023-08-04] MEDS: dexAMETHasone sod phosphate 4 MG/ML VIAL 6 MG IVPUSH (09:25)
[2023-08-04] MEDS: 0.9 % Sodium Chloride Flush 3 ML SYRINGE IVFLUSH ×2 (09:35→21:23)
[2023-08-04] MEDS: Fluticasone Propionate 250 MCG BLST.W.DEV 1 PUFF INHALE ×2 (11:09→20:45)
[2023-08-04 11:10] VITALS: PULSE 72; RESP 18; O2SAT 98
[2023-08-04] MEDS: Remdesivir 100 MG in 0.9 % Sodium Chloride 230 ML 115 MG IV (11:42)
[2023-08-04 11:47] LABS: Glucose, Whole Blood 119 mg/dL (60-115)
[2023-08-04] MEDS: Enoxaparin Sodium 40 MG/0.4 ML SYRINGE SUBCUT (11:50)
--- NOTE | 2023-08-04 14:40 | MHC.CM.PN ---
EMR REVIEWED, PER HOSPITALIST PT NOT YET READY FOR DC, ANIC PT WILL DC BACK HOME W/22HR A DAY HOME CARE, ANTIC PT WILL NEED BLS TRANSPORT HOME, CM WILL CONT TO FOLLOW DC NEEDS.
--- NOTE | 2023-08-04 15:11 | HO.PM.IMPN ---
Subjective Subjective Date of Service: 08/04/23 Interval History: covid Review of Systems still hypoxic seems similar, still seems plesantly confused . Physical Exam Vital Signs: Vital Signs: Last Vital Signs Temp 97.1 F 08/04/23 07:38 Pulse 72 08/04/23 11:10 Resp 18 08/04/23 11:10 BP 144/62 H 08/04/23 07:38 Pulse Ox 95 08/04/23 07:38 O2 Del Method Nasal Cannula 08/04/23 07:38 O2 Flow Rate 2 08/04/23 07:38 BMI result Body Mass Index 27.6 Appearance: awake ,pleasantly confused cvs: rrr, [id number]. res: air enrty fair ,slightly diminshed at bases. abd: no rebound or guarding ,nt, bs present. ext pulses present , no cyanosis . neuro: axo3 , nonfocal. Objective Data Active Medications Acetaminophen (Acetaminophen 325 Mg Tablet) 650 mg PO Q6H PRN PRN Reason: Pain, Mild (Pain Scale 1-3) Albuterol Sulfate (Albuterol Sulfate (0.083%) 2.5 Mg/3 Ml Vial.Neb) 2.5 mg INHALE Q6H PRN PRN Reason: Shortness Of Breath Or Wheezing Albuterol/Ipratropium (Albuterol/Iprat 2.5/0.5mg 3 Ml Ampul.Neb) 3 ml INHALE RQ4H WHILE AWAKE PRN PRN Reason: Shortness of Breath/Wheezing Aspirin (Aspirin Enteric Coated 81 Mg Tablet.) 81 mg PO DAILY [facility] Last Admin: 08/04/23 09:24 Dose: 81 mg Documented By: BASHIR Atorvastatin Calcium (Atorvastatin Calcium 80 Mg Tablet) 80 mg PO BEDTIME [facility] Last Admin: 08/03/23 21:47 Dose: 80 mg Documented By: STEFANY Benzocaine (Throat Lozenge, Medicated Lozenge) 1 lozenge MUCOUS MEM Q2H PRN PRN Reason: Sore Throat Last Admin: 08/02/23 15:11 Dose: 1 lozenge Documented By: ADRIA Benzonatate (Benzonatate 100 Mg Capsule) 100 mg PO TID PRN PRN Reason: Cough Clopidogrel Bisulfate (Clopidogrel Bisulfate 75 Mg Tablet) 75 mg PO DAILY [facility] Last Admin: 08/04/23 09:24 Dose: 75 mg Documented By: BASHIR Cyanocobalamin (Cyanocobalamin (Vitamin B-12) 500 Mcg Tablet) 500 mcg PO DAILY [facility] Last Admin: 08/04/23 09:24 Dose: 500 mcg Documented By: BASHIR Dexamethasone Sodium Phosphate (Dexamethasone Sod Phosphate 4 Mg/Ml Vial) 6 mg IVPUSH DAILY [facility] Last Admin: 08/04/23 09:25 Dose: 6 mg Documented By: BASHIR Dextrose (Dextrose 50 % 25 Gm/50 Ml Syringe) 25 gm IVPUSH Q15M PRN; Protocol PRN Reason: per Hypoglycemia Standing Ord. Docusate Sodium (Docusate Sodium 100 Mg Capsule) 100 mg PO DAILY PRN PRN Reason: Constipation Enoxaparin Sodium (Enoxaparin Sodium 40 Mg/0.4 Ml Syringe) 40 mg SUBCUT Q24H [facility] Last Admin: 08/04/23 11:50 Dose: 40 mg Documented By: BASHIR Fluoxetine HCl (Fluoxetine Hcl 20 Mg Capsule) 20 mg PO DAILY [facility] Last Admin: 08/04/23 09:24 Dose: 20 mg Documented By: BASHIR Fluticasone Propionate (Fluticasone Propionate 250 Mcg Blst.W.Dev) 1 puff INHALE RBID [facility] Last Admin: 08/04/23 11:09 Dose: 1 puff Documented By: KARI Folic Acid (Folic Acid 1 Mg Tablet) 0.5 mg PO DAILY [facility] Last Admin: 08/04/23 09:25 Dose: 0.5 mg Documented By: BASHIR Furosemide (Furosemide 20 Mg Tablet) 20 mg PO DAILY [facility]; Protocol Last Admin: 08/04/23 09:25 Dose: 20 mg Documented By: BASHIR Glipizide (Glipizide Xl 5 Mg Tab.Er.24) 5 mg PO DAILY [facility] Last Admin: 08/04/23 09:24 Dose: 5 mg Documented By: BASHIR Glucose (Glucose Gel 15 Gm Gel..Gram.) 15 gm PO Q15M PRN; Protocol PRN Reason: per Hypoglycemia Standing Ord. Insulin Human Lispro (Insulin Lispro 100 Unit/Ml 3 Ml Vial) 0 unit SUBCUT QIDACHS [facility]; Protocol Last Admin: 08/04/23 11:42 Dose: Not Given Documented By: BASHIR Non-Admin Reason: No Insulin Coverage Melatonin (Melatonin 3 Mg Tablet) 6 mg PO BEDTIME PRN PRN Reason: Insomnia Ondansetron HCl (Ondansetron Hcl 4 Mg/2 Ml Vial) 4 mg IVPUSH Q8H PRN PRN Reason: Nausea and Vomiting Oxybutynin Chloride (Oxybutynin Chloride Er 5 Mg Tab.Er.24) 5 mg PO DAILY [facility] Last Admin: 08/04/23 09:24 Dose: 5 mg Documented By: BASHIR Sodium Chloride (0.9 % Sodium Chloride Flush 3 Ml Syringe) 3 ml IVFLUSH QSHIFT [facility] Last Admin: 08/04/23 09:35 Dose: 3 ml Documented By: BASHIR Trazodone HCl (Trazodone Hcl 100 Mg Tablet) 100 mg PO BEDTIME [facility] Last Admin: 08/03/23 21:47 Dose: 100 mg Documented By: STEFANY Vitamin D (Cholecalciferol (Vitamin D3) 25 Mcg Tablet) 25 mcg PO DAILY [facility] Last Admin: 08/04/23 09:24 Dose: 25 mcg Documented By: BASHIR Labs 08/03/23 06:46 08/03/23 06:46 Labs: Laboratory Results - last 24 hr 08/03/23 08/03/23 08/04/23 16:28 20:26 07:42 POC Glucose 165 H 212 H 106 08/04/23 11:35 POC Glucose 119 H Microbiology Microbiology Results: Microbiology 08/02/23 06:45 Blood Culture - Preliminary Blood - Venous No growth after 48 hours. 08/02/23 06:34 Blood Culture - Preliminary Blood - Venous No growth after 48 hours. Assessment and Plan (1) COVID: Status: Acute (2) Hypoxia: Status: Acute Plan 77-year-old female with a PMH significant for COPD,?CHF unspecified, hx of CVA, [id number] diabetes type 2, HLD, and overactive bladder who presents to the ED for evaluation of fever and low oxygen saturation. Pt will be admitted to the hospital for treatment further evaluation of acute on chronic hypoxic respiratory failure in the setting of COVID infection. Acute on chronic hypoxic respiratory failure in the setting of COVID infection Patient hypoxic, satting in mid to upper 80s home 3L O2, dyspnea, nonproductive cough, fever Will treat with dexamethasone, remdesivir, DuoNebs p.r.n. Titrate supplemental O2 >92, wean as tolerated Monitor respiratory status Confusion No formal diagnosis of dementia, though has some confusion at baseline Unclear if at baseline or more confused Possibly secondary to COVID infection Monitor mentation Viral sepsis Pt tested positive for COVID, is febrile, tachycardic No clear source of bacterial infection: No leukocytosis, CXR with no acute findings or consolodation, lactic acid WNL at 1.5 Received levofloxacin in the ED No indication to continue antibiotics COPD Not in acute exacerbation Patient with mild expiratory wheezing DuoNebs p.r.n. Continue home inhalers Titrate supplemental O2 >92, wean as tolerated CHF unspecified Not in acute exacerbation BNP only slightly elevated, patient appears euvolemic Continue home furosemide Hx of CVA/HLD Continue statin, Plavix, aspirin Non-insulin dependent diabetes type 2 Continue glipizide Sliding-scale insulin, diabetic diet Full Code DVT Prophylaxis: Lovenox ongoing hopsitilisationneed :acute on chronic hypoxic respiratory failure in the setting of COVID infection. Patient has significant comorbidities and will be treated with remdesivir, increased supplemental oxygen demand a DuoNebs, and IV steroids. Quality Stroke Does the patient have a stroke diagnosis?: No VTE Prior VTE?: No VTE Risk Level:: Medical - moderate - high VTE Device Contraindication: Treatment Not Indicated VTE Drug Contraindication: N/A - Med Ordered
[2023-08-04 15:31] VITALS: BP 136/64; PULSE 65; RESP 17; TEMP 36.6; O2SAT 98
[2023-08-04 16:13] LABS: Glucose, Whole Blood 133 mg/dL (60-115)
[2023-08-04 19:24] VITALS: BP 163/72; PULSE 65; RESP 18; TEMP 37.2; O2SAT 97
[2023-08-04 20:45] VITALS: PULSE 65; RESP 18; O2SAT 97
[2023-08-04] MEDS: traZODone HCL 100 MG TABLET PO (21:22)
[2023-08-04] MEDS: Atorvastatin Calcium 80 MG TABLET PO (21:22)
[2023-08-04 22:46] LABS: Glucose, Whole Blood 136 mg/dL (60-115)
[2023-08-05 03:07] VITALS: BP 163/70; PULSE 68; RESP 20; TEMP 36; O2SAT 99
[2023-08-05 07:37] VITALS: BP 159/70; PULSE 63; RESP 18; TEMP 36.1; O2SAT 98
[2023-08-05 07:45] LABS: Glucose, Whole Blood 86 mg/dL (60-115)
[2023-08-05] MEDS: Fluticasone Propionate 250 MCG BLST.W.DEV 1 PUFF INHALE ×2 (08:00→20:17)
[2023-08-05 08:02] VITALS: PULSE 91; RESP 18
[2023-08-05] MEDS: dexAMETHasone sod phosphate 4 MG/ML VIAL 6 MG IVPUSH (09:10)
[2023-08-05] MEDS: glipiZIDE XL 5 MG TAB.ER.24 PO (09:11)
[2023-08-05] MEDS: oxyBUTYnin chloride ER 5 MG TAB.ER.24 PO (09:11)
[2023-08-05] MEDS: Folic Acid 1 MG TABLET 0.5 MG PO (09:11)
[2023-08-05] MEDS: Clopidogrel Bisulfate 75 MG TABLET PO (09:11)
[2023-08-05] MEDS: FLUoxetine HCl 20 MG CAPSULE PO (09:11)
[2023-08-05] MEDS: Aspirin Enteric Coated 81 MG TABLET.DR PO (09:12)
[2023-08-05] MEDS: Cholecalciferol (Vitamin D3) 25 MCG TABLET PO (09:12)
[2023-08-05] MEDS: 0.9 % Sodium Chloride Flush 3 ML SYRINGE IVFLUSH ×2 (09:12→17:30)
[2023-08-05] MEDS: Furosemide 20 MG TABLET PO (09:12)
[2023-08-05] MEDS: Cyanocobalamin (Vitamin B-12) 500 MCG TABLET PO (09:12)
[2023-08-05 12:11] LABS: Glucose, Whole Blood 107 mg/dL (60-115)
[2023-08-05] MEDS: Enoxaparin Sodium 40 MG/0.4 ML SYRINGE SUBCUT (13:27)
--- NOTE | 2023-08-05 14:37 | P.PNIM_ITS ---
Subjective Subjective Date of Service: 08/05/23 Interval History: covid Review of Systems still hypoxic seems similar, still seems plesantly confused . Physical Exam 2 Vital Signs: Vital Signs: Last Vital Signs Temp 97 F 08/05/23 07:37 Pulse 91 08/05/23 08:02 Resp 18 08/05/23 08:02 BP 159/70 H 08/05/23 07:37 Pulse Ox 98 08/05/23 07:37 O2 Del Method Nasal Cannula 08/05/23 07:37 O2 Flow Rate 2 08/05/23 03:07 BMI result Body Mass Index 27.6 Appearance: awake ,pleasantly confused cvs: rrr, [id number]. res: air enrty fair ,slightly diminshed at bases. abd: no rebound or guarding ,nt, bs present. ext pulses present , no cyanosis . neuro: axo3 , nonfocal. Objective Data Active Medications Acetaminophen (Acetaminophen 325 Mg Tablet) 650 mg PO Q6H PRN PRN Reason: Pain, Mild (Pain Scale 1-3) Albuterol Sulfate (Albuterol Sulfate (0.083%) 2.5 Mg/3 Ml Vial.Neb) 2.5 mg INHALE Q6H PRN PRN Reason: Shortness Of Breath Or Wheezing Albuterol/Ipratropium (Albuterol/Iprat 2.5/0.5mg 3 Ml Ampul.Neb) 3 ml INHALE RQ4H WHILE AWAKE PRN PRN Reason: Shortness of Breath/Wheezing Aspirin (Aspirin Enteric Coated 81 Mg Tablet.) 81 mg PO DAILY [facility] Last Admin: 08/05/23 09:12 Dose: 81 mg Documented By: JANNET Atorvastatin Calcium (Atorvastatin Calcium 80 Mg Tablet) 80 mg PO BEDTIME [facility] Last Admin: 08/04/23 21:22 Dose: 80 mg Documented By: CAROLE Benzocaine (Throat Lozenge, Medicated Lozenge) 1 lozenge MUCOUS MEM Q2H PRN PRN Reason: Sore Throat Last Admin: 08/02/23 15:11 Dose: 1 lozenge Documented By: ADRIA Benzonatate (Benzonatate 100 Mg Capsule) 100 mg PO TID PRN PRN Reason: Cough Clopidogrel Bisulfate (Clopidogrel Bisulfate 75 Mg Tablet) 75 mg PO DAILY [facility] Last Admin: 08/05/23 09:11 Dose: 75 mg Documented By: JANNET Cyanocobalamin (Cyanocobalamin (Vitamin B-12) 500 Mcg Tablet) 500 mcg PO DAILY [facility] Last Admin: 08/05/23 09:12 Dose: 500 mcg Documented By: JANNET Dexamethasone Sodium Phosphate (Dexamethasone Sod Phosphate 4 Mg/Ml Vial) 6 mg IVPUSH DAILY [facility] Last Admin: 08/05/23 09:10 Dose: 6 mg Documented By: JANNET Dextrose (Dextrose 50 % 25 Gm/50 Ml Syringe) 25 gm IVPUSH Q15M PRN; Protocol PRN Reason: per Hypoglycemia Standing Ord. Docusate Sodium (Docusate Sodium 100 Mg Capsule) 100 mg PO DAILY PRN PRN Reason: Constipation Enoxaparin Sodium (Enoxaparin Sodium 40 Mg/0.4 Ml Syringe) 40 mg SUBCUT Q24H [facility] Last Admin: 08/05/23 13:27 Dose: 40 mg Documented By: ALLENMOMARCIE Fluoxetine HCl (Fluoxetine Hcl 20 Mg Capsule) 20 mg PO DAILY [facility] Last Admin: 08/05/23 09:11 Dose: 20 mg Documented By: JANNET Fluticasone Propionate (Fluticasone Propionate 250 Mcg Blst.W.Dev) 1 puff INHALE RBID [facility] Last Admin: 08/05/23 08:00 Dose: 1 puff Documented By: CINDY Folic Acid (Folic Acid 1 Mg Tablet) 0.5 mg PO DAILY [facility] Last Admin: 08/05/23 09:11 Dose: 0.5 mg Documented By: JANNET Furosemide (Furosemide 20 Mg Tablet) 20 mg PO DAILY [facility]; Protocol Last Admin: 08/05/23 09:12 Dose: 20 mg Documented By: JANNET Glipizide (Glipizide Xl 5 Mg Tab.Er.24) 5 mg PO DAILY [facility] Last Admin: 08/05/23 09:11 Dose: 5 mg Documented By: JANNET Glucose (Glucose Gel 15 Gm Gel..Gram.) 15 gm PO Q15M PRN; Protocol PRN Reason: per Hypoglycemia Standing Ord. Insulin Human Lispro (Insulin Lispro 100 Unit/Ml 3 Ml Vial) 0 unit SUBCUT QIDACHS [facility]; Protocol Last Admin: 08/05/23 13:21 Dose: Not Given Documented By: CHANELL Non-Admin Reason: No Insulin Coverage Melatonin (Melatonin 3 Mg Tablet) 6 mg PO BEDTIME PRN PRN Reason: Insomnia Ondansetron HCl (Ondansetron Hcl 4 Mg/2 Ml Vial) 4 mg IVPUSH Q8H PRN PRN Reason: Nausea and Vomiting Oxybutynin Chloride (Oxybutynin Chloride Er 5 Mg Tab.Er.24) 5 mg PO DAILY [facility] Last Admin: 08/05/23 09:11 Dose: 5 mg Documented By: JANNET Sodium Chloride (0.9 % Sodium Chloride Flush 3 Ml Syringe) 3 ml IVFLUSH QSHIFT [facility] Last Admin: 08/05/23 09:12 Dose: 3 ml Documented By: JANNET Trazodone HCl (Trazodone Hcl 100 Mg Tablet) 100 mg PO BEDTIME [facility] Last Admin: 08/04/23 21:22 Dose: 100 mg Documented By: CAROLE Vitamin D (Cholecalciferol (Vitamin D3) 25 Mcg Tablet) 25 mcg PO DAILY [facility] Last Admin: 08/05/23 09:12 Dose: 25 mcg Documented By: JANNET Labs 08/03/23 06:46 08/03/23 06:46 Labs: Laboratory Results - last 24 hr 08/04/23 08/04/23 08/05/23 16:04 20:39 07:36 POC Glucose 133 H 136 H 86 08/05/23 12:02 POC Glucose 107 Assessment and Plan Plan 77-year-old female with a PMH significant for COPD,?CHF unspecified, hx of CVA, [id number] diabetes type 2, HLD, and overactive bladder who presents to the ED for evaluation of fever and low oxygen saturation. Pt will be admitted to the hospital for treatment further evaluation of acute on chronic hypoxic respiratory failure in the setting of COVID infection. Acute on chronic hypoxic respiratory failure in the setting of COVID infection Patient hypoxic, satting in mid to upper 80s home 3L O2, dyspnea, nonproductive cough, fever Will treat with dexamethasone, remdesivir, DuoNebs p.r.n. Titrate supplemental O2 >92, wean as tolerated Monitor respiratory status Confusion No formal diagnosis of dementia, though has some confusion at baseline Unclear if at baseline or more confused Possibly secondary to COVID infection Monitor mentation Viral sepsis Pt tested positive for COVID, is febrile, tachycardic No clear source of bacterial infection: No leukocytosis, CXR with no acute findings or consolodation, lactic acid WNL at 1.5 Received levofloxacin in the ED No indication to continue antibiotics COPD Not in acute exacerbation Patient with mild expiratory wheezing DuoNebs p.r.n. Continue home inhalers Titrate supplemental O2 >92, wean as tolerated CHF unspecified Not in acute exacerbation BNP only slightly elevated, patient appears euvolemic Continue home furosemide Hx of CVA/HLD Continue statin, Plavix, aspirin Non-insulin dependent diabetes type 2 Continue glipizide Sliding-scale insulin, diabetic diet Full Code DVT Prophylaxis: Lovenox ongoing hopsitilisationneed :acute on chronic hypoxic respiratory failure in the setting of COVID infection. Patient has significant comorbidities and will be treated with remdesivir, increased supplemental oxygen demand a DuoNebs, and IV steroids. Quality Stroke Does the patient have a stroke diagnosis?: No VTE Prior VTE?: No VTE Risk Level:: Medical - moderate - high VTE Device Contraindication: Treatment Not Indicated VTE Drug Contraindication: N/A - Med Ordered
[2023-08-05 15:50] VITALS: BP 128/66; PULSE 83; RESP 18; TEMP 36.1
--- NOTE | 2023-08-05 16:22 | MHC.CM.PN ---
Pt has been medically cleared for DC, she will go home via ambulance, and resume her prior home health services. [facility] Mari[facility], , notified and will be at the home when pt arrives.
--- NOTE | 2023-08-05 16:23 | P.DS_ITS ---
DS: Providers Provider Date of Service: 08/05/23 Date of admission: 08/02/23 11:58 Date of discharge: 08/05/23 Primary care physician: Cliff Walsh MD Consults: 08/03/23 07:47 Consult to Infectious Diseases Routine Consulting Provider: [facility] Infectious Disease Reason for consultation: hypoxia/covid Has provider been notified: No Attending physician on discharge: Manolo Lozano Discharging clinician: Manolo Lozano DS: Diagnosis Discharge Diagnosis (1) COVID: Status: Acute (2) Hypoxia: Status: Acute DS: Summary Hospital Course Hospital Course: 77-year-old female with a PMH significant for COPD,?CHF unspecified, hx of CVA, [id number] diabetes type 2, HLD, and overactive bladder who presents to the ED for evaluation of fever and low oxygen saturation. Patient presents from home where she lives by herself with 22-hour care from [facility] and another state agency. Likely has some type of unspecified/undiagnosed dementia, is confused at baseline. Is bed-bound at baseline. Patient is alert and oriented to self only, not to place, time, or situation. Patient is thus unable to provide accurate HPI, which instead taken from chart, provider, and home nurse review. Patient apparently noted to have nonproductive cough, dyspnea, and decreased oxygen saturation at home. Is chronically on 2-3 L NC, but was noted to be satting in the 80s earlier this morning on her home O2. Was sent in to the ED for further evaluation by her home health aide. Patient herself has no acute medical complaints, and states she wants to go home because she needs to be there for her grandson who is staying with her. However, ED clinician contacted home health aide who states patient does not have a grandson staying with her, and in fact does not have any regular contact with her family. In the ED pt was febrile up to 102.2, tachycardic to 109, and satting at 88-89% on RA. Labs were significant for testing positive for COVID and mildly elevated BNP at 154, otherwise grossly unremarkable and around baseline. No leukocytosis. No electrolyte abnormalities. Renal function, hepatic function WNL. CXR showed mild subsegmental atelectasis, but no acute pulmonary findings with no focal airspace consolidation. Pt was treated with acetaminophen, IVF, levofloxacin, DuoNeb, and dexamethasone. Pt will be admitted to the hospital for treatment further evaluation of acute on chronic hypoxic respiratory failure in the setting of COVID infection. Hospital course: Patient was admitted for acute on chronic hypoxemic respiratory failure due to COVID: Patient received dexamethasone, remdesivir and nebs seems to be improved. Now sats are also improved to 92% range. Patient has go COPD and uses 2 L oxygen at baseline. 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 Patient will be going back to home care. plan: complete dexamethsone for 3 more days Assessment and plan coordination time spent 50 minute. Time Attestation Discharge coordination time: Greater than 30 minutes Quality: Safe Use of Opioids Does Pt have an Active Cancer Diagnosis on the Problem List?: No Quality: Stroke Does the patient have a stroke diagnosis?: No Physical Exam Vital Signs: Vital Signs: Last Vital Signs Temp 97 F 08/05/23 15:50 Pulse 83 08/05/23 15:50 Resp 18 08/05/23 15:50 BP 128/66 08/05/23 15:50 Pulse Ox 98 08/05/23 07:37 O2 Del Method Nasal Cannula 08/05/23 07:37 O2 Flow Rate 2 08/05/23 03:07 BMI result Body Mass Index 27.6 Appearance: awake ,pleasantly confused at baseline (confirmed with animal care attendant rowena) cvs: rrr, [id number]. res: air enrty fair ,no rales or wheezing abd: no rebound or guarding ,nt, bs present. ext pulses present , no cyanosis . neuro: axo3 , nonfocal. DS: Data Data Completed and Pending Labs on day of discharge: Laboratory Results - last 24 hr 08/04/23 08/05/23 08/05/23 20:39 07:36 12:02 POC Glucose 136 H 86 107 Preliminary micro results at discharge 08/02/23 06:45 Blood Culture - Preliminary Blood - Venous No growth after 48 hours. 08/02/23 06:34 Blood Culture - Preliminary Blood - Venous No growth after 48 hours. Imaging Chest x-ray: Radiologist's impression: ITS Impressions Chest X-Ray 08/02/23 06:50 IMPRESSION: Low lung volumes with mild subsegmental atelectasis. No acute pulmonary findings. No focal airspace consolidation. Discharge Plan Discharge Anticipated Discharge Date/Time: 08/05/23 16:16 Patient Disposition: Home, Self-Care Discharge Diagnosis: Acute on chronic hypoxic respiratory failure in the setting of COVID infection Referrals: Cliff Walsh MD [Primary Care Provider] - 1 Week Discharge Medications: New dexamethasone 6 mg tablet 6 mg PO DAILY Qty: 4 0RF Continued atorvastatin 80 mg tablet 80 mg PO QPM albuterol sulfate 2.5 mg /3 mL (0.083 %) solution for nebulization 2.5 mg inhalation Q6H PRN (Reason: Shortness Of Breath Or Wheezing) glipizide 5 mg tablet extended release 24hr 5 mg PO QAM clopidogrel 75 mg tablet 75 mg PO QAM folic acid 400 mcg tablet 0.4 mg PO QAM aspirin 81 mg tablet,delayed release (DR/EC) 81 mg PO QAM acetaminophen 500 mg Tablet 500 mg PO BID cyanocobalamin (vitamin B-12) 500 mcg tablet 500 mcg PO QAM oxybutynin chloride 5 mg tablet extended release 24hr 5 mg PO QAM fluticasone propionate [Flovent HFA] 220 mcg/actuation Hfa Aerosol Inhaler 1 puff INHALATION BID fluoxetine 20 mg capsule 20 mg PO QAM zinc oxide 20 % Ointment 1 appl TOPICAL DAILY PRN (Reason: Wound Healing) Rx Instructions: apply to buttocks trazodone 100 mg tablet 100 mg PO BEDTIME furosemide 20 mg tablet 20 mg PO QAM pregabalin 150 mg capsule 150 mg PO TID cholecalciferol (vitamin D3) 25 mcg (1,000 unit) tablet 25 mcg PO DAILY metoprolol succinate 25 mg tablet extended release 24 hr 25 mg PO DAILY Discharge Orders: Discharge Order (Routine); Ordered 08/05/23 Ordered By: Manolo Lozano Diet: Advance to usual diet Activity on Discharge: As tolerated Stand Alone Forms: Patient Portal Discharge page Care Plan Goals: Patient was admitted for acute on chronic hypoxemic respiratory failure due to COVID: Patient received dexamethasone, remdesivir and nebs seems to be improved. Now sats are also improved to 92% range. Patient has go COPD and uses 2 L oxygen at baseline. 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 Patient will be going back to home care. Health Concerns: As above. Plan of Treatment: As above. Assessment: As above. Discharge Date/Time: 08/05/23 21:51
[2023-08-05 17:06] LABS: Glucose, Whole Blood 256 mg/dL (60-115)
[2023-08-05] MEDS: Insulin Lispro 100 UNIT/ML 3 ML VIAL SUBCUT (17:30)
[2023-08-05 20:19] VITALS: PULSE 83; RESP 18; O2SAT 97
[2023-08-05 21:33] LABS: Glucose, Whole Blood 120 mg/dL (60-115)
== END 2023-08-05 21:51 | disposition home or self-care (01) | DRG 871 ==
LOC: HO.ED 09:37 → HO.EDOVER 12:27 → HO.IMC 19:16
PROVIDERS: Registered Nurse Emergency; Admitting Provider Student in an Organized Health Care Education/Training Program; Emergency Provider Internal Medicine; PCP Internal Medicine; Visit Provider Internal Medicine
DX: A41.89 Other specified sepsis (principal); J96.21 Acute and chronic respiratory failure with hypoxia; U07.1 COVID-19; E78.5 Hyperlipidemia, unspecified; J44.9 Chronic obstructive pulmonary disease, unspecified; Z99.81 Dependence on supplemental oxygen; I50.9 Heart failure, unspecified; E11.42 Type 2 diabetes mellitus with diabetic polyneuropathy; Z86.73 Personal history of transient ischemic attack (TIA), and cerebral infarction without residual deficits; Z74.01 Bed confinement status; Z79.02 Long term (current) use of antithrombotics/antiplatelets; Z79.82 Long term (current) use of aspirin; Z79.84 Long term (current) use of oral hypoglycemic drugs; Z79.899 Other long term (current) drug therapy
CPT/HCPCS: 0241U; 36415; 71045; 80048; 80053; 81001; 82947; 83605; 83880; 84484; 85025; 85027; 85610; 87040; 87086; 93005; 94640; 99285; J0248; J1100; J1650; J1956

== ENCOUNTER → 2023-08-02 06:21 | Outpatient (BNV) | payer MEDICARE, MEDICAID, SELFPAY | PROVIDERS: Admitting Provider Student in an Organized Health Care Education/Training Program; Emergency Provider Internal Medicine; PCP Internal Medicine; Visit Provider Internal Medicine Cardiovascular Disease | DX: R00.0 Tachycardia, unspecified (principal) | CPT/HCPCS: 93010 ==

== ENCOUNTER → 2023-08-02 11:58 | Outpatient (BNV) | payer OTHER, MEDICAID, SELFPAY | PROVIDERS: Admitting Provider Student in an Organized Health Care Education/Training Program; Emergency Provider Internal Medicine; PCP Internal Medicine; Visit Provider Student in an Organized Health Care Education/Training Program | DX: U07.1 COVID-19 (principal); J96.21 Acute and chronic respiratory failure with hypoxia | CPT/HCPCS: 99223; 99232; 99239 ==

== ENCOUNTER 2023-09-10 10:56 | Inpatient (IN) | payer MEDICARE, MEDICAID, SELFPAY ==
[2023-09-10] VITALS (9 sets, daily range): BP systolic 103–133; BP diastolic 46–74; PULSE 58–68; RESP 16–20; TEMP 36–37; O2SAT 94–98; BMI 26.6; BMI 28.4
--- NOTE | ~2023-09-10 | NM_ITS ---
RADIONUCLIDE GASTROINTESTINAL BLEEDING STUDY CLINICAL INDICATION: GI bleeding. PROCEDURE: Following the bolus intravenous administration of 25 millicuries technetium 99m labeled autologous red blood cells, rapid sequence dynamic gamma scintillation camera and sequential static images were obtained over the abdomen and pelvis for an observation interval of 60 minutes post injection. FINDINGS: No abnormal accumulations of activity are seen in the abdomen or pelvis. NM/NM GI bleeding IMPRESSION: No gastrointestinal hemorrhage is identified.
--- NOTE | 2023-09-10 11:07 | ECG_ITS ---
Test Reason : blood loss Blood Pressure : / mmHG Vent. Rate : 067 BPM Atrial Rate : 067 BPM P-R Int : 150 ms QRS Dur : 084 ms QT Int : 412 ms P-R-T Axes : 073 015 024 degrees QTc Int : 435 ms Normal sinus rhythm Normal ECG When compared with ECG of 02-AUG-2023 06:24, Vent. rate has decreased BY 43 BPM Referred By: Generic ED Physician Electronically Signed By:DAVID GOMES MD
--- NOTE | 2023-09-10 11:13 | ED_ITS ---
HPI - GI Bleed General Chief complaint: GI Bleed Stated complaint: GI BLEED Time Seen by Provider: 09/10/23 11:10 Source: EMS Mode of arrival: EMS History of Present Illness HPI Narrative: This is a 77 years old female with history of COPD, congestive heart failure, CVA, type 2 diabetes presented to the emergency department because of GI bleeding. Patient currently received in the [facility] she has not anticoagulated history is limited because the patient has some dementia MD complaint: gross hematochezia Onset (ago): hour(s) (6) Pain Consistency: constant Severity: moderate Relieving factors: none Exacerbating factors: none Associated symptoms: denies other symptoms Related Data Home Medications Medication Instructions Recorded Confirmed acetaminophen 500 mg tablet 500 mg PO BID 08/02/23 09/10/23 albuterol sulfate 2.5 mg/3 mL 2.5 mg inhalation Q6H PRN 08/02/23 09/10/23 (0.083 %) solution for nebulization Shortness Of Breath Or Wheezing aspirin 81 mg tablet,delayed 81 mg PO QAM 08/02/23 09/10/23 release atorvastatin 80 mg tablet 80 mg PO QPM 08/02/23 09/10/23 cholecalciferol (vitamin D3) 25 25 mcg PO DAILY 08/02/23 09/10/23 mcg (1,000 unit) tablet clopidogrel 75 mg tablet 75 mg PO QAM 08/02/23 09/10/23 cyanocobalamin (vitamin B-12) 500 500 mcg PO QAM 08/02/23 09/10/23 mcg tablet fluoxetine 20 mg capsule 20 mg PO QAM 08/02/23 09/10/23 folic acid 400 mcg tablet 0.4 mg PO QAM 08/02/23 09/10/23 furosemide 20 mg tablet 20 mg PO BID@0900,1700 08/02/23 09/10/23 glipizide 5 mg tablet, extended 5 mg PO QAM 08/02/23 09/10/23 release 24 hr metoprolol succinate 25 mg 25 mg PO DAILY 08/02/23 09/10/23 tablet,extended release 24 hr oxybutynin chloride 5 mg 5 mg PO QAM 08/02/23 09/10/23 tablet,extended release 24 hr pregabalin 150 mg capsule 150 mg PO TID 08/02/23 09/10/23 trazodone 100 mg tablet 100 mg PO BEDTIME 08/02/23 09/10/23 zinc oxide 20 % topical ointment 1 appl topical DAILY PRN Wound 08/02/23 09/10/23 Healing fluticasone propionate 220 1 puff inhalation BID 09/10/23 09/10/23 mcg/actuation HFA aerosol inhaler levetiracetam 250 mg tablet 250 mg PO BID 09/10/23 09/10/23 (Keppra) loperamide 2 mg capsule 2 mg PO Q4H PRN Diarrhea 09/10/23 09/10/23 nystatin 100,000 unit/gram topical 1 appl topical BID 09/10/23 09/10/23 cream triamcinolone acetonide 0.1 % 1 appl topical BID 09/10/23 09/10/23 topical ointment Allergies Allergy/AdvReac Type Severity Reaction Status Date / Time Penicillins Allergy Unknown Verified 08/02/23 06:04 piroxicam Allergy Unknown Verified 08/02/23 06:04 shrimp Allergy Hives Verified 08/02/23 06:04 Sulfa (Sulfonamide Allergy Unknown Verified 08/02/23 06:04 Antibiotics) Review of Systems 2 Review of Systems: Yes Other (dementia) [facility] Past Medical History Medical History (Updated 09/10/23 @ 11:40 by Myles Denise MD) COPD (chronic obstructive pulmonary disease) Non-insulin dependent type 2 diabetes mellitus Peripheral neuropathy HLD (hyperlipidemia) CVA (cerebral vascular accident) Heart failure, unspecified Social History Social History Household Members: Caregiver Housing: House Unable to assess alcohol history related to: Unknown Alcohol intake: never Patient Tobacco Use Status: Never used Tobacco Smoked in Last 30 Days: No Use of substances other than those prescribed or required for medical reasons: No Advance Directives: No Advance Directives Information Provided: No service: No Physical Exam 2 Vital Signs: Vital Signs: Last Vital Signs Temp 98.6 F 09/10/23 11:08 Pulse 67 09/10/23 13:59 Resp 18 09/10/23 13:59 BP 116/74 09/10/23 14:37 Pulse Ox 96 09/10/23 13:59 O2 Del Method Room Air 09/10/23 13:59 O2 Flow Rate 2 09/10/23 13:59 Oxygen Flow Rate 2 09/10/23 11:08 BMI result Body Mass Index 26.6 Const: General: no acute distress HEENT: Head: Yes normal to inspection Ears: hearing grossly normal bilaterally General nose exam: Normal external nose present Face and sinus: Yes normal facial exam Mouth: Normal oral and palatal mucosa present Neck: Neck: Yes normal visual inspection Chest: Chest palpation & inspection: normal inspection of the chest Resp: Effort & Inspection: normal respiratory effort Auscultation: clear to auscultation bilaterally Cardio: Jugular venous distension: no JVD Rate: regular rate Rhythm: r egular rhythm GI: Inspection: Yes normal to inspection Palpation (GI): Soft to palpation Auscultation: normal bowel sounds Skin: General skin exam: no rashes or lesions noted Neuro: Cranial nerves: Yes CN's II-XII intact bilaterally Medications Administered Discontinued Medications Generic Name Dose Route Start Last Admin Trade Name Freq PRN Reason Stop Dose Admin Sodium Chloride 1,000 mls @ 999 mls/hr 09/10/23 11:45 09/10/23 12:15 Ns IVCONT 09/10/23 12:45 999 mls/hr .Q1H1M [facility] Infusion Pantoprazole Sodium 40 mg 09/10/23 11:41 09/10/23 11:50 Pantoprazole Sodium 40 Mg/10 Ml Vial IVPUSH 09/10/23 11:42 40 mg ONCE ONE Administration Medical Decision Making Medical Decision Making [facility] Narrative: Patient presented to emergency department with rectal bleeding will obtain IV access administer fluid check CBC Differential Diagnosis Differential Diagnoses: The differential diagnosis associated with the presentation includes Diverticular bleeding, peptic ulcer disease, polyp bleeding Admission/Observation Consideration of admission/observation: Escalation of care including admission/observation considered Consult Healthcare Provider Management of the patient was discussed with: Hospitalist Lab Data [facility] Lab Attestation statement: I reviewed the patient's lab results. 09/10/23 14:50 09/10/23 11:30 Labs: Lab Results 09/10/23 09/10/23 Range/Units 11:17 11:30 WBC 7.5 (4.8-10.8) X10*3/uL RBC 4.08 L (4.20-5.50) X10*6/uL Hgb 11.2 L (12.0-16.0) g/dl Hct 36.3 L (37.0-47.0) % MCV 89.0 (80.0-98.0) fL MCH 27.5 (27.0-33.0) pg MCHC 30.9 L (31.0-35.0) g/dl RDW 19.4 H (11.0-16.0) % Plt Count 166 (160-400) X10*3/uL MPV 10.5 (9.4-12.3) fL Immature Gran % (Auto) 0.4 (0.0-0.4) % Neut % (Auto) 78.9 H (45-73) % Lymph % (Auto) 13.4 L (20-40) % [place] % (Auto) 6.4 (2-11) % Eos % (Auto) 0.8 (0-4) % Baso % (Auto) 0.1 (0-2) % Lymph # (Auto) 1.0 L (1.2-4.9) X10*3/uL [place] # (Auto) 0.5 (0.1-1.2) X10*3/uL Eos # (Auto) 0.1 (0.0-0.4) X10*3/uL Baso # (Auto) 0.0 (0.0-0.2) X10*3/uL Abs Immat Gran (auto) 0.03 (0.00-0.03) X10*3/uL Absolute Neuts (auto) 5.9 (2.0-8.3) x10*3/uL Absolute Nucleated RBC 0.000 (0.0-0.012) X10*3/uL Nucleated RBC % (auto) 0.0 (0.0-0.2) /100WBC PT 12.3 (11.1-13.3) SEC INR 1.0 (0.9-1.1) Sodium 146 H (135-145) mmol/L Potassium 4.6 (3.3-5.1) mmol/L Chloride 108 (96-108) mmol/L Carbon Dioxide 34 H (22-29) mmol/L Anion Gap 9 L (12-20) BUN 19 H (9-16) mg/dL Creatinine 1.29 (0.5-1.4) mg/dL Estim Creat Clear Calc 37.7 Estimated GFR 40 POC Glucose 107 (60-115) mg/dL Random Glucose 109 (60-115) mg/dL Calcium 8.7 D (8.4-10.2) mg/dL Total Bilirubin 0.5 (0.0-1.0) mg/dL AST 11 (5-31) U/L ALT 6 (0-31) U/L Alkaline Phosphatase 66 (39-117) U/L Total Protein 7.0 (6.5-8.0) g/dL Albumin 3.5 (3.5-5.0) g/dL Stool Occult Blood POSITIVE (NEGATIVE) Blood Type O Positive Antibody Screen NEGATIVE Independent Interpretation I performed an independent interpretation of an: EKG and Plain X-Ray Interpretation: NO ISCHEMIC CHANGES Radiology Impression Discussion of test interpretation with radiology: I have reviewed the radiologist's reading. Independent Historian Clinical information obtained from an independent historian. History obtained from or confirmed by: EMS External Record Review External record reviewed: Inpatient record Procedures EJ/Peripheral Line Arm R: Time Out Performed: Yes Skin Cleansed in Sterile Fashion: Yes Size (gauge): 20 IV Secured and Dressing Applied: Yes Patient Tolerated Procedure: well and no complications Additional Comments: I was asked to place IV difficult IV access,under US guided cannulated rt arm basilic with 20 praveena long catheter good flush good blood aspiration Discharge Plan Discharge Clinical Impression: Acute GI bleeding Patient Disposition: Admitted As Inpatient
[2023-09-10 11:20] LABS: Glucose, Whole Blood 107 mg/dL (60-115)
[2023-09-10 11:38] LABS: MANUAL DIFF FLAG NO
[2023-09-10 11:39] LABS: Basophils Percent Auto 0.1 % (0-2); Eosinophils Absolute Auto 0.1 X10*3/uL (0.0-0.4); Eosinophils Percent Auto 0.8 % (0-4); Hematocrit 36.3 % (37.0-47.0); Hemoglobin 11.2 g/dl (12.0-16.0); Imm Gran Abs Auto 0.03 X10*3/uL (0.00-0.03); Imm Gran Pct Auto 0.4 % (0.0-0.4); Lymphocytes Percent Auto 13.4 % (20-40); Mean Corpuscular HGB Conc 30.9 g/dl (31.0-35.0); Mean Corpuscular Hemoglobin 27.5 pg (27.0-33.0); Mean Platelet Volume 10.5 fL (9.4-12.3); Monocytes Absolute Auto 0.5 X10*3/uL (0.1-1.2); Monocytes Percent Auto 6.4 % (2-11); Neutrophils Absolute Auto 5.9 x10*3/uL (2.0-8.3); Neutrophils Percent Auto 78.9 % (45-73); Platelet Count 166 X10*3/uL (160-400); Red Blood Count 4.08 X10*6/uL (4.20-5.50); Red Cell Distribution Width 19.4 % (11.0-16.0); White Blood Count 7.5 X10*3/uL (4.8-10.8)
[2023-09-10 11:40] LABS: OBS Int Ctl Valid YES; OBS1 POSITIVE (NEGATIVE)
[2023-09-10 11:48] LABS: Prothrombin Time 12.3 SEC (11.1-13.3)
[2023-09-10] MEDS: 0.9 % Sodium Chloride 1,000 ML 999 ML IVCONT (11:50)
[2023-09-10] MEDS: Pantoprazole Sodium 40 MG/10 ML VIAL IVPUSH (11:50)
[2023-09-10 11:55] LABS: Alanine Aminotransferase 6 U/L (0-31); Albumin Level 3.5 g/dL (3.5-5.0); Alkaline Phosphatase 66 U/L (39-117); Anion Gap 9 (12-20); Aspartate Amino Transferase 11 U/L (5-31); Bilirubin Total 0.5 mg/dL (0.0-1.0); Blood Urea Nitrogen 19 mg/dL (9-16); Calcium 8.7 mg/dL (8.4-10.2); Carbon Dioxide 34 mmol/L (22-29); Chloride 108 mmol/L (96-108); Creatinine Clr Calc Pharmacy 37.7; Estimated Glomerular Filt Rate 40; Glucose Random 109 mg/dL (60-115); Potassium 4.6 mmol/L (3.3-5.1); Sodium 146 mmol/L (135-145)
--- NOTE | 2023-09-10 12:39 | PC.NURSE ---
Patient admitted via EMS from [facility] with staff concern of lower GIB. Patient observed to be heavily bleeding with multiple clots from rectum. 2 IVs placed in bilat arms, R arm US guided. 1L NS ordered currently infusing, patient on stretcher no acute distress noted at this time.
--- NOTE | 2023-09-10 13:54 | PM.IMHP ---
History of Present Illness Date of Service: 09/10/23 Chief Complaint: Bleeding 77-year-old woman with history of COPD, CHF, CVA, diabetes mellitus presented to the ER with GI bleeding. Unfortunately patient has a history of baseline confusion, likely dementia and unable to answer any questions regarding what brought her to the emergency department. Lives at [facility], staff called EMS and noted bleeding. Hemoglobin 11.2, hematocrit 36.3, platelets a 166, normal white blood cell count, no fever, sodium 146, creatinine 1.29, stool occult positive, stable blood pressure. Patient received 1 L of IV fluid and IV Protonix in the ER. She will be admitted for further management and treatment of GI bleed. Review of Systems Review of Systems: Yes Unobtainable due to mental status COUNTS INCLUDE 234 BEDS AT THE [facility] Medical History (Updated 09/10/23 @ 11:40 by Myles Denise MD) COPD (chronic obstructive pulmonary disease) Non-insulin dependent type 2 diabetes mellitus Peripheral neuropathy HLD (hyperlipidemia) CVA (cerebral vascular accident) Heart failure, unspecified Social History Household Members: Caregiver Housing: House Unable to assess alcohol history related to: Unknown Alcohol intake: never Patient Tobacco Use Status: Never used Tobacco Smoked in Last 30 Days: No Use of substances other than those prescribed or required for medical reasons: No Advance Directives: No Advance Directives Information Provided: No service: No Meds Allergies Allergy/AdvReac Type Severity Reaction Status Date / Time Penicillins Allergy Unknown Verified 08/02/23 06:04 piroxicam Allergy Unknown Verified 08/02/23 06:04 shrimp Allergy Hives Verified 08/02/23 06:04 Sulfa (Sulfonamide Allergy Unknown Verified 08/02/23 06:04 Antibiotics) Active Medications: Current Medications Acetaminophen (Acetaminophen 325 Mg Tablet) 650 mg PO Q6H PRN PRN Reason: Pain, Mild (Pain Scale 1-3) Ondansetron HCl (Ondansetron Hcl 4 Mg/2 Ml Vial) 4 mg IVPUSH Q8H PRN PRN Reason: Nausea and Vomiting Sodium Chloride (0.9 % Sodium Chloride Flush 3 Ml Syringe) 3 ml IVFLUSH [facility] Home Medications Medication Instructions Recorded Confirmed Last Taken Type acetaminophen 500 mg tablet 500 mg PO BID 08/02/23 09/10/23 Unknown History albuterol sulfate 2.5 mg/3 mL 2.5 mg inhalation Q6H PRN 08/02/23 09/10/23 Unknown History (0.083 %) solution for nebulization Shortness Of Breath Or Wheezing aspirin 81 mg tablet,delayed 81 mg PO QAM 08/02/23 09/10/23 Unknown History release atorvastatin 80 mg tablet 80 mg PO QPM 08/02/23 09/10/23 Unknown History cholecalciferol (vitamin D3) 25 25 mcg PO DAILY 08/02/23 09/10/23 Unknown History mcg (1,000 unit) tablet clopidogrel 75 mg tablet 75 mg PO QAM 08/02/23 09/10/23 Unknown History cyanocobalamin (vitamin B-12) 500 500 mcg PO QAM 08/02/23 09/10/23 Unknown History mcg tablet fluoxetine 20 mg capsule 20 mg PO QAM 08/02/23 09/10/23 Unknown History folic acid 400 mcg tablet 0.4 mg PO QAM 08/02/23 09/10/23 Unknown History furosemide 20 mg tablet 20 mg PO BID@0900,1700 08/02/23 09/10/23 Unknown History glipizide 5 mg tablet, extended 5 mg PO QAM 08/02/23 09/10/23 Unknown History release 24 hr metoprolol succinate 25 mg 25 mg PO DAILY 08/02/23 09/10/23 Unknown History tablet,extended release 24 hr oxybutynin chloride 5 mg 5 mg PO QAM 08/02/23 09/10/23 Unknown History tablet,extended release 24 hr pregabalin 150 mg capsule 150 mg PO TID 08/02/23 09/10/23 Unknown History trazodone 100 mg tablet 100 mg PO BEDTIME 08/02/23 09/10/23 Unknown History zinc oxide 20 % topical ointment 1 appl topical DAILY PRN Wound 08/02/23 09/10/23 Unknown History Healing fluticasone propionate 220 1 puff inhalation BID 09/10/23 09/10/23 Unknown History mcg/actuation HFA aerosol inhaler levetiracetam 250 mg tablet 250 mg PO BID 09/10/23 09/10/23 Unknown History (Kejoseph) loperamide 2 mg capsule 2 mg PO Q4H PRN Diarrhea 09/10/23 09/10/23 Unknown History nystatin 100,000 unit/gram topical 1 appl topical BID 09/10/23 09/10/23 Unknown History cream triamcinolone acetonide 0.1 % 1 appl topical BID 09/10/23 09/10/23 Unknown History topical ointment Physical Exam Vital Signs and Narrative: Vital Signs: Last Vital Signs Temp 98.6 F 09/10/23 11:08 Pulse 65 09/10/23 12:26 Resp 20 09/10/23 12:26 BP 121/52 L 09/10/23 12:26 Pulse Ox 98 09/10/23 11:51 O2 Del Method Nasal Cannula 09/10/23 11:51 O2 Flow Rate 2 09/10/23 11:51 Oxygen Flow Rate 2 09/10/23 11:08 BMI result Body Mass Index 26.6 Appearing in no acute distress head is normocephalic atraumatic eyes pupils are PERRLA sclera is anicteric mouth throat mucous membranes are intact and moist neck is supple no lymphadenopathy, no JVD noted lung sounds are clear to auscultation heart regular rate rhythm, clear S1, S2 positive bowel sounds, abdomen is soft, nontender neuro patient is alert, confused Results Labs 09/10/23 14:50 09/10/23 11:30 Labs: Laboratory Results - last 24 hr 09/10/23 09/10/23 11:17 11:30 MCV 89.0 MCH 27.5 MCHC 30.9 L RDW 19.4 H Plt Count 166 MPV 10.5 Immature Gran % (Auto) 0.4 Neut % (Auto) 78.9 H Lymph % (Auto) 13.4 L [place] % (Auto) 6.4 Eos % (Auto) 0.8 Baso % (Auto) 0.1 Lymph # (Auto) 1.0 L [place] # (Auto) 0.5 Eos # (Auto) 0.1 Baso # (Auto) 0.0 Abs Immat Gran (auto) 0.03 Absolute Neuts (auto) 5.9 Absolute Nucleated RBC 0.000 Nucleated RBC % (auto) 0.0 PT 12.3 INR 1.0 Anion Gap 9 L Estim Creat Clear Calc 37.7 Estimated GFR 40 POC Glucose 107 Random Glucose 109 Calcium 8.7 D Total Bilirubin 0.5 AST 11 ALT 6 Alkaline Phosphatase 66 Total Protein 7.0 Albumin 3.5 Stool Occult Blood POSITIVE Blood Type O Positive Antibody Screen NEGATIVE Assessment and Plan (1) Acute GI bleeding: Status: Acute Plan 77-year-old woman admitted with GI bleed with positive stool occult. Lives in independent living with almost 24 hours of care daily. GI bleed, unspecified Follow H&H GI consultation H&H above transfusion threshold at this time Diabetes mellitus type 2 Sliding scale, ADA diet Hyperlipidemia Continue statin, hold aspirin and Plavix Asthma No exacerbation Continue albuterol History of congestive heart failure, unspecified No exacerbation Continue Lasix DVT prophylaxis with pneumatic compression boots in light of GI bleed Full code Healthcare proxy Mariely Florencego [phone] Patient require at least 48 hours for treatment of acute GI bleed possibly requiring diagnostic intervention, will need specialist consultation, and close monitoring blood work. Can not be done at a lesser acute setting. Quality Stroke Does the patient have a stroke diagnosis?: No VTE Prior VTE?: No VTE Risk Level:: Medical - moderate - high VTE Device Contraindication: N/A - Device Ordered VTE Drug Contraindication: Treatment Not Indicated
[2023-09-10 14:54] LABS: MANUAL DIFF FLAG NO
--- NOTE | 2023-09-10 14:56 | PHA.MEDREC ---
Pharmacy Consult ? Medication Reconciliation Med Reconciliation done with list from patient [facility]. Called [facility] and they said they didn't had a list of medications for this patient. Pharmacy has completed the medication reconciliation.
[2023-09-10 14:58] LABS: Basophils Percent Auto 0.3 % (0-2); Eosinophils Absolute Auto 0.1 X10*3/uL (0.0-0.4); Eosinophils Percent Auto 0.7 % (0-4); Hematocrit 36.2 % (37.0-47.0); Imm Gran Abs Auto 0.02 X10*3/uL (0.00-0.03); Imm Gran Pct Auto 0.3 % (0.0-0.4); Lymphocytes Absolute Auto 1.3 X10*3/uL (1.2-4.9); Lymphocytes Percent Auto 17.9 % (20-40); Mean Corpuscular HGB Conc 30.4 g/dl (31.0-35.0); Mean Corpuscular Hemoglobin 27.6 pg (27.0-33.0); Mean Platelet Volume 11.3 fL (9.4-12.3); Monocytes Absolute Auto 0.5 X10*3/uL (0.1-1.2); Monocytes Percent Auto 7.7 % (2-11); Neutrophils Absolute Auto 5.2 x10*3/uL (2.0-8.3); Neutrophils Percent Auto 73.1 % (45-73); Platelet Count 144 X10*3/uL (160-400); Red Blood Count 3.98 X10*6/uL (4.20-5.50); Red Cell Distribution Width 19.2 % (11.0-16.0); White Blood Count 7.1 X10*3/uL (4.8-10.8)
--- NOTE | 2023-09-10 17:31 | PC.NURSE ---
pt orientation waxing and waning. according to [facility] staff, pt lives independently. typically takes care of self, receives help for bathing.
[2023-09-11 04:00] VITALS: BP 134/63; PULSE 64; RESP 16; TEMP 36.1; O2SAT 97
[2023-09-11 05:38] LABS: MANUAL DIFF FLAG NO
[2023-09-11 05:42] LABS: Basophils Percent Auto 0.3 % (0-2); Eosinophils Absolute Auto 0.1 X10*3/uL (0.0-0.4); Eosinophils Percent Auto 1.5 % (0-4); Hematocrit 34.8 % (37.0-47.0); Hemoglobin 10.6 g/dl (12.0-16.0); Imm Gran Abs Auto 0.01 X10*3/uL (0.00-0.03); Imm Gran Pct Auto 0.1 % (0.0-0.4); Lymphocytes Absolute Auto 1.3 X10*3/uL (1.2-4.9); Lymphocytes Percent Auto 18.9 % (20-40); Mean Corpuscular HGB Conc 30.5 g/dl (31.0-35.0); Mean Corpuscular Hemoglobin 27.7 pg (27.0-33.0); Mean Corpuscular Volume 90.9 fL (80.0-98.0); Mean Platelet Volume 11.2 fL (9.4-12.3); Monocytes Absolute Auto 0.6 X10*3/uL (0.1-1.2); Monocytes Percent Auto 8.3 % (2-11); Neutrophils Absolute Auto 4.9 x10*3/uL (2.0-8.3); Neutrophils Percent Auto 70.9 % (45-73); Platelet Count 158 X10*3/uL (160-400); Red Blood Count 3.83 X10*6/uL (4.20-5.50); Red Cell Distribution Width 18.8 % (11.0-16.0); White Blood Count 6.9 X10*3/uL (4.8-10.8)
[2023-09-11 05:59] LABS: Anion Gap 12 (12-20); Blood Urea Nitrogen 14 mg/dL (9-16); Calcium 8.5 mg/dL (8.4-10.2); Carbon Dioxide 29 mmol/L (22-29); Chloride 108 mmol/L (96-108); Creatinine Clr Calc Pharmacy 54.5; Estimated Glomerular Filt Rate 59; Glucose Random 98 mg/dL (60-115); Sodium 145 mmol/L (135-145)
[2023-09-11] MEDS: 0.9 % Sodium Chloride Flush 3 ML SYRINGE IVFLUSH ×4 (06:05→20:42)
[2023-09-11 06:52] VITALS: BP 136/61; PULSE 60; RESP 16; TEMP 36.3; O2SAT 95
[2023-09-11] MEDS: FLUoxetine HCl 20 MG CAPSULE PO (09:11)
[2023-09-11] MEDS: Folic Acid 1 MG TABLET 0.5 MG PO (09:11)
[2023-09-11] MEDS: Cholecalciferol (Vitamin D3) 25 MCG TABLET PO (09:12)
[2023-09-11] MEDS: levETIRAcetam 250 MG TABLET PO ×2 (09:12→20:41)
[2023-09-11] MEDS: Pregabalin 150 MG CAPSULE PO ×3 (09:12→20:42)
[2023-09-11] MEDS: Furosemide 20 MG TABLET PO ×2 (09:12→16:47)
[2023-09-11] MEDS: oxyBUTYnin chloride ER 5 MG TAB.ER.24 PO (09:12)
[2023-09-11] MEDS: Cyanocobalamin (Vitamin B-12) 500 MCG TABLET PO (09:23)
[2023-09-11 11:36] VITALS: O2SAT 82; O2SAT 94
--- NOTE | 2023-09-11 11:38 | HO.PM.IMPN ---
Subjective Subjective Date of Service: 09/11/23 Review of Systems Follow up GI Bleed low oxygen today alert but confused Physical Exam Vital Signs: Vital Signs: Last Vital Signs Temp 97.4 F 09/11/23 06:52 Pulse 60 09/11/23 06:52 Resp 16 09/11/23 06:52 BP 136/61 09/11/23 06:52 Pulse Ox 94 09/11/23 11:36 O2 Del Method Nasal Cannula 09/11/23 11:36 O2 Flow Rate 2 09/11/23 11:36 Oxygen Flow Rate 2 09/10/23 11:08 BMI result Body Mass Index 28.4 Objective Data Active Medications Acetaminophen (Acetaminophen 325 Mg Tablet) 650 mg PO Q6H PRN PRN Reason: Pain, Mild (Pain Scale 1-3) Albuterol Sulfate (Albuterol Sulfate (0.083%) 2.5 Mg/3 Ml Vial.Neb) 2.5 mg INHALE Q6H PRN PRN Reason: Shortness Of Breath Or Wheezing Atorvastatin Calcium (Atorvastatin Calcium 80 Mg Tablet) 80 mg PO BEDTIME [facility] Cyanocobalamin (Cyanocobalamin (Vitamin B-12) 500 Mcg Tablet) 500 mcg PO DAILY [facility] Last Admin: 09/11/23 09:23 Dose: 500 mcg Documented By: ABRAN Fluoxetine HCl (Fluoxetine Hcl 20 Mg Capsule) 20 mg PO DAILY [facility] Last Admin: 09/11/23 09:11 Dose: 20 mg Documented By: ABRAN Fluticasone Propionate (Fluticasone Propionate 250 Mcg Blst.W.Dev) 1 puff INHALE RBID [facility] Last Admin: 09/11/23 07:30 Dose: Not Given Documented By: CINDY Non-Admin Reason: med unavail pharmacy called Folic Acid (Folic Acid 1 Mg Tablet) 0.5 mg PO DAILY [facility] Last Admin: 09/11/23 09:11 Dose: 0.5 mg Documented By: ABRAN Furosemide (Furosemide 20 Mg Tablet) 20 mg PO BID@0900,1700 [facility]; Protocol Last Admin: 09/11/23 09:12 Dose: 20 mg Documented By: ABRAN Levetiracetam (Levetiracetam 250 Mg Tablet) 250 mg PO BID [facility] Last Admin: 09/11/23 09:12 Dose: 250 mg Documented By: ABRAN Loperamide HCl (Loperamide Hcl 2 Mg Capsule) 2 mg PO Q4H PRN PRN Reason: Diarrhea Metoprolol Succinate (Metoprolol Succinate Er 25 Mg Tab.Er.24h) 25 mg PO DAILY [facility]; Protocol Last Admin: 09/11/23 09:13 Dose: Not Given Documented By: ABRAN Non-Admin Reason: Decreased Heart Rate Ondansetron HCl (Ondansetron Hcl 4 Mg/2 Ml Vial) 4 mg IVPUSH Q8H PRN PRN Reason: Nausea and Vomiting Oxybutynin Chloride (Oxybutynin Chloride Er 5 Mg Tab.Er.24) 5 mg PO DAILY [facility] Last Admin: 09/11/23 09:12 Dose: 5 mg Documented By: ABRAN Pregabalin (Pregabalin 150 Mg Capsule) 150 mg PO TID [facility] Last Admin: 09/11/23 09:12 Dose: 150 mg Documented By: ABRAN Sodium Chloride (0.9 % Sodium Chloride Flush 3 Ml Syringe) 3 ml IVFLUSH QSHIFT [facility] Last Admin: 09/11/23 07:56 Dose: 3 ml Documented By: ABRAN Trazodone HCl (Trazodone Hcl 100 Mg Tablet) 100 mg PO BEDTIME [facility] Vitamin D (Cholecalciferol (Vitamin D3) 25 Mcg Tablet) 25 mcg PO DAILY [facility] Last Admin: 09/11/23 09:12 Dose: 25 mcg Documented By: ABRAN Labs 09/11/23 04:58 09/11/23 04:58 Labs: Laboratory Results - last 24 hr 09/10/23 09/10/23 09/11/23 11:30 14:50 04:58 MCV 89.0 91.0 90.9 MCH 27.5 27.6 27.7 MCHC 30.9 L 30.4 L 30.5 L RDW 19.4 H 19.2 H 18.8 H Plt Count 166 144 L 158 L MPV 10.5 11.3 11.2 Immature Gran % (Auto) 0.4 0.3 0.1 Neut % (Auto) 78.9 H 73.1 H 70.9 Lymph % (Auto) 13.4 L 17.9 L 18.9 L Jewell % (Auto) 6.4 7.7 8.3 Eos % (Auto) 0.8 0.7 1.5 Baso % (Auto) 0.1 0.3 0.3 Lymph # (Auto) 1.0 L 1.3 1.3 Jewell # (Auto) 0.5 0.5 0.6 Eos # (Auto) 0.1 0.1 0.1 Baso # (Auto) 0.0 0.0 0.0 Abs Immat Gran (auto) 0.03 0.02 0.01 Absolute Neuts (auto) 5.9 5.2 4.9 Absolute Nucleated RBC 0.000 0.000 0.000 Nucleated RBC % (auto) 0.0 0.0 0.0 PT 12.3 INR 1.0 Anion Gap 9 L 12 Estim Creat Clear Calc 37.7 54.5 Estimated GFR 40 59 Random Glucose 109 98 Calcium 8.7 D 8.5 Total Bilirubin 0.5 AST 11 ALT 6 Alkaline Phosphatase 66 Total Protein 7.0 Albumin 3.5 Stool Occult Blood POSITIVE Blood Type O Positive Antibody Screen NEGATIVE Assessment and Plan (1) Acute GI bleeding: Status: Acute Plan 77-year-old woman admitted with GI bleed with positive stool occult. Lives in independent living with almost 24 hours of care daily. GI bleed, unspecified Follow H&H GI consultation pending H&H above transfusion threshold at this time Diabetes mellitus type 2 Sliding scale, ADA diet Hyperlipidemia Continue statin, hold aspirin and Plavix Asthma No exacerbation Continue albuterol History of congestive heart failure, unspecified No exacerbation Continue Lasix DVT prophylaxis with pneumatic compression boots in light of GI bleed Attending Dr. Melton Full code Healthcare proxy Mariely Florencego [phone] Patient require at least 48 hours for treatment of acute GI bleed possibly requiring diagnostic intervention, will need specialist consultation, and close monitoring blood work. Can not be done at a lesser acute setting. Quality Stroke Does the patient have a stroke diagnosis?: No VTE Prior VTE?: No VTE Risk Level:: Medical - moderate - high VTE Device Contraindication: N/A - Device Ordered VTE Drug Contraindication: Treatment Not Indicated
--- NOTE | 2023-09-11 12:04 | CONS_ITS ---
DATE OF SERVICE: 09/11/2023 REFERRING PHYSICIAN: Rajni Hardin NP REASON FOR CONSULTATION: GI bleeding. HISTORY OF PRESENT ILLNESS: The patient is a 77-year-old woman who was admitted to the hospital after presenting to the emergency room with rectal bleeding. She has a history of confusion/dementia and provides very little history. She denies abdominal pain. Records indicate that she had rectal bleeding at the facility, where she lives and was brought to the emergency room by ambulance. She was admitted to the hospital and overnight reportedly had 1 small smear of dark bloody stool according to nursing. Information on her most recent colonoscopy is not available and the patient is unable to provide this information. Evaluation in the emergency department included laboratory studies showing a hematocrit of 36.3, which has remained relatively stable overnight at 34.8 this morning. PAST MEDICAL HISTORY: 1. COPD. 2. Diabetes mellitus. 3. Neuropathy. 4. Hyperlipidemia. 5. CVA. 6. Heart failure. 7. Confusion/dementia. CURRENT MEDICATIONS: Her current medication list is reviewed in the chart. She is on aspirin and clopidogrel. ALLERGIES: MULTIPLE MEDICATION ALLERGIES ARE REVIEWED. FAMILY HISTORY: Not obtainable from the patient and are reviewed to the degree possible in the records. SOCIAL HISTORY: Not obtainable from the patient and are reviewed to the degree possible in the records. REVIEW OF SYSTEMS: Not obtainable from the patient and are reviewed to the degree possible in the records. PHYSICAL EXAMINATION: GENERAL: Shows a pleasant female who basically answers with shakes of her head and yes or no questions. VITAL SIGNS: Stable. SKIN: Anicteric. HEENT: Shows no scleral icterus. NECK: Without lymphadenopathy or thyromegaly. LUNGS: Clear. HEART: Shows a regular rate and rhythm. S1, S2. No murmur. ABDOMEN: Soft without focal masses or tenderness. Bowel sounds are present. No organomegaly is noted. EXTREMITIES: Without edema. IMPRESSION: Gastrointestinal bleeding. The differential diagnosis for gastrointestinal bleeding, which appears from a lower source includes diverticular bleeding, hemorrhoids, arteriovenous malformations, and malignancy. Given her age and comorbid conditions and likely inability to take a bowel prep, I would recommend observation at this time. Her hematocrit appears stable. If aggressive intervention is requested, colonoscopy could be considered, but again, I think the ability of her to tolerate a bowel prep would be extremely limited. Thanks for asking me to see her. I will follow her in the hospital as needed. MD HUEY Simon/JA / [phone]
[2023-09-11 13:15] LABS: Appearance Urine Cloudy; Color Urine Yellow; Glucose Urine UA Negative (Negative); Leukocyte Esterase Urine Large (3+) (Negative); Nitrite Urine Negative (Negative); PH 5.5 (5.0-9.0); UMIC TRIGGER UACC YES; Urine Blood Trace (Negative); Urine Ketones Negative (Negative); Urine Protein Negative (Neg-Trace)
[2023-09-11 13:20] LABS: Bacteria Urine 3+ (None Seen); Hyaline Casts Urine 0-2 /LPF (0-2); UACC Culture Trigger YES; WBC Urine 21-50 /HPF (0-5)
--- NOTE | 2023-09-11 15:05 | MHC.CM.PN ---
pt from [facility] where she has 24 hr pp care whih is maaged by humberto [phone] her body care manager pt also has an rm pt will need bls transport home humberto will fax hcp when she she can
[2023-09-11 15:07] VITALS: BP 125/61; PULSE 60; RESP 16; TEMP 36.3; O2SAT 100
--- NOTE | 2023-09-11 15:07 | HO.WOUND ---
Wound Consult: Initial 77yr old F? admitted to [facility] [place] on 09/10/23 - See progress notes and H&P for detailed history.? Wound consult placed for Sacral Wound POA.? Patient agreeable to assessment and photo documentation.? Sacrum Etiology: Stage 1 Pressure Injury ??Present on Admission Measurements: see charting for detailed measurements Wound Bed: intact red pink nonblanchable tissue - evidence of previous injury noted - currently resurfaced however given the observation that the previous injury was full thickness as evidence by scar tissue formation the tissure is at significant risk of injury / breakdown Drainage / Odor: None Edges: ? Irregular Shala wound: Hypopigmentation noted Hyperpigmentation noted - evidence of previous injury noted - irrgular pukering if tissue noted full thikcness injury - ? No Induration, Fluctuance or Warmth noted Pain: pt denies Goals of Treatment: ? Off LaodPressure - protect from moisture and friciton Recommendations: 1. Turn and Reposition every 2 hours and as needed for patient comfort.? Use pillows or wedges to support off loading positions. 2. Off Load all bony prominences with use of pillows and heel boots if needed.? Apply Preventative foams where needed. ? 3. Monitor for incontinence and moisture control, use barrier creams when needed for prevention and treatment. 4. Provide adequate and supplemental nutrition.? 5. Order or Continue low air loss mattress. 6. When applicable maintain blood glucose levels per Providers order. 7. Sacrum -Off Load Pressure - Cleanse with routine cleaning pat dry. Apply sacral foam dressing peel back and assess Q shift, change every 3 days and PRN. Re-consult wound care Nurse for wound deterioration or wound changes.
--- NOTE | 2023-09-11 17:25 | PC.NURSE ---
smear of brick colored stool once this shift. Reported to Peg Osorio and Dr Braga. No new orders
[2023-09-11 20:00] VITALS: BP 109/53; PULSE 66; RESP 14; TEMP 36.4; O2SAT 97
[2023-09-11] MEDS: Fluticasone Propionate 250 MCG BLST.W.DEV 1 PUFF INHALE (20:01)
[2023-09-11 20:02] VITALS: PULSE 64; RESP 22; O2SAT 97
[2023-09-11] MEDS: traZODone HCL 100 MG TABLET PO (20:42)
[2023-09-11] MEDS: Atorvastatin Calcium 80 MG TABLET PO (20:42)
[2023-09-12 03:05] VITALS: BP 128/61; PULSE 63; RESP 14; TEMP 36; O2SAT 96
[2023-09-12 05:29] LABS: Glucose, Whole Blood 93 mg/dL (60-115)
[2023-09-12 07:20] LABS: Glucose, Whole Blood 115 mg/dL (60-115)
[2023-09-12 07:24] VITALS: BP 136/63; PULSE 70; RESP 16; TEMP 36.6; O2SAT 98
[2023-09-12 08:05] VITALS: PULSE 67; RESP 16; O2SAT 98
[2023-09-12] MEDS: Fluticasone Propionate 250 MCG BLST.W.DEV 1 PUFF INHALE ×2 (08:05→19:37)
[2023-09-12] MEDS: Cyanocobalamin (Vitamin B-12) 500 MCG TABLET PO (09:41)
[2023-09-12] MEDS: Pregabalin 150 MG CAPSULE PO ×3 (09:41→20:25)
[2023-09-12] MEDS: Metoprolol Succinate ER 25 MG TAB.ER.24H PO (09:41)
[2023-09-12] MEDS: Furosemide 20 MG TABLET PO ×2 (09:41→18:15)
[2023-09-12] MEDS: FLUoxetine HCl 20 MG CAPSULE PO (09:41)
[2023-09-12] MEDS: oxyBUTYnin chloride ER 5 MG TAB.ER.24 PO (09:41)
[2023-09-12] MEDS: Folic Acid 1 MG TABLET 0.5 MG PO (09:41)
[2023-09-12] MEDS: levETIRAcetam 250 MG TABLET PO ×2 (09:41→20:25)
[2023-09-12] MEDS: Cholecalciferol (Vitamin D3) 25 MCG TABLET PO (09:41)
[2023-09-12] MEDS: 0.9 % Sodium Chloride Flush 3 ML SYRINGE IVFLUSH ×2 (09:42→18:15)
--- NOTE | 2023-09-12 10:17 | P.PNIM_ITS ---
Subjective Subjective Date of Service: 09/12/23 Review of Systems Follow up GI Bleed low oxygen today alert but confused Physical Exam 2 Vital Signs: Vital Signs: Last Vital Signs Temp 97.8 F 09/12/23 07:24 Pulse 67 09/12/23 08:05 Resp 16 09/12/23 08:05 BP 136/63 09/12/23 07:24 Pulse Ox 98 09/12/23 07:24 O2 Del Method Nasal Cannula 09/12/23 07:24 O2 Flow Rate 2 09/12/23 07:24 Oxygen Flow Rate 2 09/10/23 11:08 BMI result Body Mass Index 28.4 Appearing in no acute distress lung sounds are clear to auscultation heart regular rate rhythm, clear S1, S2 positive bowel sounds, abdomen is soft, nontender neuro patient is alert, confused Objective Data Active Medications Acetaminophen (Acetaminophen 325 Mg Tablet) 650 mg PO Q6H PRN PRN Reason: Pain, Mild (Pain Scale 1-3) Albuterol Sulfate (Albuterol Sulfate (0.083%) 2.5 Mg/3 Ml Vial.Neb) 2.5 mg INHALE Q6H PRN PRN Reason: Shortness Of Breath Or Wheezing Atorvastatin Calcium (Atorvastatin Calcium 80 Mg Tablet) 80 mg PO BEDTIME [facility] Last Admin: 09/11/23 20:42 Dose: 80 mg Documented By: MARY KAY Cyanocobalamin (Cyanocobalamin (Vitamin B-12) 500 Mcg Tablet) 500 mcg PO DAILY [facility] Last Admin: 09/12/23 09:41 Dose: 500 mcg Documented By: KRIS Dextrose (Dextrose 50 % 25 Gm/50 Ml Syringe) 25 gm IVPUSH Q15M PRN; Protocol PRN Reason: per Hypoglycemia Standing Ord. Fluoxetine HCl (Fluoxetine Hcl 20 Mg Capsule) 20 mg PO DAILY [facility] Last Admin: 09/12/23 09:41 Dose: 20 mg Documented By: KRIS Fluticasone Propionate (Fluticasone Propionate 250 Mcg Blst.W.Dev) 1 puff INHALE RBID [facility] Last Admin: 09/12/23 08:05 Dose: 1 puff Documented By: KARI Folic Acid (Folic Acid 1 Mg Tablet) 0.5 mg PO DAILY [facility] Last Admin: 09/12/23 09:41 Dose: 0.5 mg Documented By: KRIS Furosemide (Furosemide 20 Mg Tablet) 20 mg PO BID@0900,1700 [facility]; Protocol Last Admin: 09/12/23 09:41 Dose: 20 mg Documented By: KRIS Glucose (Glucose Gel 15 Gm Gel..Gram.) 15 gm PO Q15M PRN; Protocol PRN Reason: per Hypoglycemia Standing Ord. Insulin Human Lispro (Insulin Lispro 100 Unit/Ml 3 Ml Vial) 0 unit SUBCUT QIDACHS [facility]; Protocol Last Admin: 09/12/23 08:32 Dose: Not Given Documented By: KRIS Non-Admin Reason: No Insulin Coverage Levetiracetam (Levetiracetam 250 Mg Tablet) 250 mg PO BID [facility] Last Admin: 09/12/23 09:41 Dose: 250 mg Documented By: KRIS Loperamide HCl (Loperamide Hcl 2 Mg Capsule) 2 mg PO Q4H PRN PRN Reason: Diarrhea Metoprolol Succinate (Metoprolol Succinate Er 25 Mg Tab.Er.24h) 25 mg PO DAILY [facility]; Protocol Last Admin: 09/12/23 09:41 Dose: 25 mg Documented By: KRIS Ondansetron HCl (Ondansetron Hcl 4 Mg/2 Ml Vial) 4 mg IVPUSH Q8H PRN PRN Reason: Nausea and Vomiting Oxybutynin Chloride (Oxybutynin Chloride Er 5 Mg Tab.Er.24) 5 mg PO DAILY [facility] Last Admin: 09/12/23 09:41 Dose: 5 mg Documented By: KRIS Pregabalin (Pregabalin 150 Mg Capsule) 150 mg PO TID [facility] Last Admin: 09/12/23 09:41 Dose: 150 mg Documented By: KRIS Sodium Chloride (0.9 % Sodium Chloride Flush 3 Ml Syringe) 3 ml IVFLUSH QSHIFT [facility] Last Admin: 09/12/23 09:42 Dose: 3 ml Documented By: KRIS Trazodone HCl (Trazodone Hcl 100 Mg Tablet) 100 mg PO BEDTIME [facility] Last Admin: 09/11/23 20:42 Dose: 100 mg Documented By: MARY KAY Vitamin D (Cholecalciferol (Vitamin D3) 25 Mcg Tablet) 25 mcg PO DAILY [facility] Last Admin: 09/12/23 09:41 Dose: 25 mcg Documented By: KRIS Labs 09/11/23 04:58 09/11/23 04:58 Labs: Laboratory Results - last 24 hr 09/11/23 09/12/23 09/12/23 12:49 05:17 07:10 POC Glucose 93 115 Urine Color Yellow Urine Appearance Cloudy Urine pH 5.5 Ur Specific Camas 1.010 Urine Protein Negative Urine Glucose (UA) Negative Urine Ketones Negative Urine Blood Trace H Urine Nitrite Negative Ur Leukocyte Esterase Large (3+) H Urine RBC 11-20 H Urine WBC 21-50 H Ur Squamous Epith Cells 3-5 Urine Bacteria 3+ Hyaline Casts 0-2 Assessment and Plan (1) Acute GI bleeding: Status: Acute Plan 77-year-old woman admitted with GI bleed with positive stool occult. Lives in independent living with almost 24 hours of care daily. GI bleed, unspecified has not had any bleeding while inpatient but acute bleeding noted today discussed with GI> due to dementia will have difficulty with prep, for now check bleeding scan check HH Diabetes mellitus type 2 Sliding scale, ADA diet Hyperlipidemia Continue statin, hold aspirin and Plavix Asthma No exacerbation Continue albuterol History of congestive heart failure, unspecified No exacerbation Continue Lasix DVT prophylaxis with pneumatic compression boots in light of GI bleed Attending Dr. Saavedra Full code Healthcare proxy Mariely Florencego [phone] Patient require at least 48 hours for treatment of acute GI bleed possibly requiring diagnostic intervention, will need specialist consultation, and close monitoring blood work. Can not be done at a lesser acute setting. Quality Stroke Does the patient have a stroke diagnosis?: No VTE Prior VTE?: No VTE Risk Level:: Medical - moderate - high VTE Device Contraindication: N/A - Device Ordered VTE Drug Contraindication: Treatment Not Indicated
[2023-09-12 10:54] LABS: Glucose, Whole Blood 318 mg/dL (60-115)
[2023-09-12] MEDS: Insulin Lispro 100 UNIT/ML 3 ML VIAL SUBCUT (11:43)
[2023-09-12 12:13] LABS: Hematocrit 32.7 % (37.0-47.0); Hemoglobin 10.3 g/dl (12.0-16.0); Mean Corpuscular HGB Conc 31.5 g/dl (31.0-35.0); Mean Corpuscular Hemoglobin 27.8 pg (27.0-33.0); Mean Corpuscular Volume 88.4 fL (80.0-98.0); Mean Platelet Volume 12.3 fL (9.4-12.3); Platelet Count 161 X10*3/uL (160-400); Red Cell Distribution Width 18.3 % (11.0-16.0); White Blood Count 8.6 X10*3/uL (4.8-10.8)
[2023-09-12 16:00] VITALS: BP 130/63; PULSE 69; RESP 17; TEMP 36.7; O2SAT 97
--- NOTE | 2023-09-12 16:32 | P.PNGI_ITS ---
Subjective Subjective Date of Service: 09/12/23 Interval History: rectal bleeding this am no c/o abd pain Critical Care Time (minutes): 0 Physical Exam 2 Vital Signs: Vital Signs: Last Vital Signs Temp 97.8 F 09/12/23 07:24 Pulse 67 09/12/23 08:05 Resp 16 09/12/23 08:05 BP 136/63 09/12/23 07:24 Pulse Ox 98 09/12/23 07:24 O2 Del Method Nasal Cannula 09/12/23 07:24 O2 Flow Rate 2 09/12/23 07:24 Oxygen Flow Rate 2 09/10/23 11:08 BMI result Body Mass Index 28.4 GI: Other: abdomen is soft and nontender Objective Data Labs 09/12/23 11:47 09/11/23 04:58 Labs: Laboratory Results - last 24 hr 09/12/23 09/12/23 09/12/23 05:17 07:10 10:49 WBC RBC Hgb Hct MCV MCH MCHC RDW Plt Count MPV Absolute Nucleated RBC Nucleated RBC % (auto) POC Glucose 93 115 318 H 09/12/23 09/12/23 11:47 11:48 WBC 8.6 RBC 3.70 L Hgb 10.3 L Cancelled Hct 32.7 L Cancelled MCV 88.4 MCH 27.8 MCHC 31.5 RDW 18.3 H Plt Count 161 MPV 12.3 Absolute Nucleated RBC 0.000 Nucleated RBC % (auto) 0.0 POC Glucose Microbiology Microbiology Results: Microbiology 09/11/23 Unknown Urine clean catch - Urine echeverria top Urine Culture - Final Procedures Date of Service Date of Service: 09/12/23 Progress Note: A&P Assessment and plan (1) Acute GI bleeding: Status: Acute Plan bleeding scan pending follow hct patient indicates she does not want colonoscopy Time Spent With Patient Time: Total time managing care of this patient today ____ minutes. Quality Stroke Does the patient have a stroke diagnosis?: No VTE Prior VTE?: No VTE Risk Level:: Medical - moderate - high VTE Device Contraindication: N/A - Device Ordered VTE Drug Contraindication: Treatment Not Indicated
[2023-09-12 17:28] LABS: Glucose, Whole Blood 105 mg/dL (60-115)
[2023-09-12 18:55] VITALS: BP 117/66; PULSE 70; RESP 17; TEMP 36.2; O2SAT 96
[2023-09-12 19:40] VITALS: PULSE 70; RESP 18; O2SAT 100
[2023-09-12 19:49] LABS: Glucose, Whole Blood 125 mg/dL (60-115)
[2023-09-12] MEDS: Atorvastatin Calcium 80 MG TABLET PO (20:26)
[2023-09-12] MEDS: traZODone HCL 100 MG TABLET PO (20:26)
--- NOTE | 2023-09-12 22:38 | PC.NURSE ---
purewick in place ,draining mario color urine ,no bleeding noted this pm
[2023-09-13 00:30] LABS: Hematocrit 30.7 % (37.0-47.0); Hemoglobin 9.4 g/dl (12.0-16.0)
[2023-09-13] MEDS: 0.9 % Sodium Chloride Flush 3 ML SYRINGE IVFLUSH ×4 (02:09→21:17)
[2023-09-13 03:28] VITALS: BP 106/53; PULSE 66; RESP 17; TEMP 36.6; O2SAT 97
[2023-09-13 05:28] LABS: Hematocrit 30.2 % (37.0-47.0); Hemoglobin 9.5 g/dl (12.0-16.0); Mean Corpuscular HGB Conc 31.5 g/dl (31.0-35.0); Mean Corpuscular Hemoglobin 27.6 pg (27.0-33.0); Mean Corpuscular Volume 87.8 fL (80.0-98.0); Mean Platelet Volume 11.8 fL (9.4-12.3); PLT CLUMP 1; Red Blood Count 3.44 X10*6/uL (4.20-5.50); Red Cell Distribution Width 17.7 % (11.0-16.0)
[2023-09-13 06:04] LABS: Platelet Count 153 X10*3/uL (160-400)
[2023-09-13 07:21] VITALS: BP 121/58; PULSE 65; RESP 18; TEMP 36.1; O2SAT 91
[2023-09-13 07:28] LABS: Glucose, Whole Blood 114 mg/dL (60-115)
[2023-09-13] MEDS: oxyBUTYnin chloride ER 5 MG TAB.ER.24 PO (08:37)
[2023-09-13] MEDS: Cyanocobalamin (Vitamin B-12) 500 MCG TABLET PO (08:38)
[2023-09-13] MEDS: Metoprolol Succinate ER 25 MG TAB.ER.24H PO (08:38)
[2023-09-13] MEDS: levETIRAcetam 250 MG TABLET PO (08:38)
[2023-09-13] MEDS: Cholecalciferol (Vitamin D3) 25 MCG TABLET PO (08:38)
[2023-09-13] MEDS: Furosemide 20 MG TABLET PO ×2 (08:38→17:23)
[2023-09-13] MEDS: Folic Acid 1 MG TABLET 0.5 MG PO (08:38)
[2023-09-13] MEDS: Pregabalin 150 MG CAPSULE PO (08:38)
[2023-09-13] MEDS: FLUoxetine HCl 20 MG CAPSULE PO (08:39)
[2023-09-13 11:21] LABS: Glucose, Whole Blood 116 mg/dL (60-115)
--- NOTE | 2023-09-13 12:16 | HO.PM.IMPN ---
Subjective Subjective Date of Service: 09/13/23 Interval History: No acute issues overnight. No bleeding noted Review of Systems Denies chest pain Denies shortness of breath Denies nausea vomiting diarrhea Denies fever chills Physical Exam Vital Signs: Vital Signs: Last Vital Signs Temp 96.9 F 09/13/23 07:21 Pulse 65 09/13/23 07:21 Resp 18 09/13/23 07:21 BP 121/58 L 09/13/23 07:21 Pulse Ox 91 L 09/13/23 07:21 O2 Del Method Nasal Cannula 09/13/23 07:21 O2 Flow Rate 2 09/13/23 07:21 Oxygen Flow Rate 2 09/10/23 11:08 BMI result Body Mass Index 28.4 Const: Other: Somnolent yet arousable. Responds appropriately to questioning HEENT: Other: Right facial droop; baseline per family Resp: Other: Clear to auscultation bilaterally no rales rhonchi or wheezes Cardio: Other: No S4; positive S1-S2; no S3 murmurs rubs or gallops GI: Other: Soft nontender nondistended normoactive bowel sounds Extrem: Other: No edema bilaterally Objective Data Active Medications Acetaminophen (Acetaminophen 325 Mg Tablet) 650 mg PO Q6H PRN PRN Reason: Pain, Mild (Pain Scale 1-3) Albuterol Sulfate (Albuterol Sulfate (0.083%) 2.5 Mg/3 Ml Vial.Neb) 2.5 mg INHALE Q6H PRN PRN Reason: Shortness Of Breath Or Wheezing Atorvastatin Calcium (Atorvastatin Calcium 80 Mg Tablet) 80 mg PO BEDTIME REPLACED BY [facility] Last Admin: 09/12/23 20:26 Dose: 80 mg Documented By: KT Cyanocobalamin (Cyanocobalamin (Vitamin B-12) 500 Mcg Tablet) 500 mcg PO DAILY [facility] Last Admin: 09/13/23 08:38 Dose: 500 mcg Documented By: TANNER Dextrose (Dextrose 50 % 25 Gm/50 Ml Syringe) 25 gm IVPUSH Q15M PRN; Protocol PRN Reason: per Hypoglycemia Standing Ord. Fluoxetine HCl (Fluoxetine Hcl 20 Mg Capsule) 20 mg PO DAILY [facility] Last Admin: 09/13/23 08:39 Dose: 20 mg Documented By: TANNER Fluticasone Propionate (Fluticasone Propionate 250 Mcg Blst.W.Dev) 1 puff INHALE RBID [facility]PL[facility] Last Admin: 09/13/23 08:12 Dose: Not Given Documented By: KARI Non-Admin Reason: Patient Refused Folic Acid (Folic Acid 1 Mg Tablet) 0.5 mg PO DAILY [facility] Last Admin: 09/13/23 08:38 Dose: 0.5 mg Documented By: TANNER Furosemide (Furosemide 20 Mg Tablet) 20 mg PO BID@0900,1700 [facility]; Protocol Last Admin: 09/13/23 08:38 Dose: 20 mg Documented By: TANNER Glucose (Glucose Gel 15 Gm Gel..Gram.) 15 gm PO Q15M PRN; Protocol PRN Reason: per Hypoglycemia Standing Ord. Insulin Human Lispro (Insulin Lispro 100 Unit/Ml 3 Ml Vial) 0 unit SUBCUT QIDACHS [facility]PLACED BY [facility]; Protocol Last Admin: 09/13/23 11:46 Dose: Not Given Documented By: TANNER Non-Admin Reason: No Insulin Coverage Levetiracetam (Levetiracetam 250 Mg Tablet) 250 mg PO BID [facility]PL[facility] Last Admin: 09/13/23 08:38 Dose: 250 mg Documented By: TANNER Loperamide HCl (Loperamide Hcl 2 Mg Capsule) 2 mg PO Q4H PRN PRN Reason: Diarrhea Metoprolol Succinate (Metoprolol Succinate Er 25 Mg Tab.Er.24h) 25 mg PO DAILY [facility]; Protocol Last Admin: 09/13/23 08:38 Dose: 25 mg Documented By: TANNER Ondansetron HCl (Ondansetron Hcl 4 Mg/2 Ml Vial) 4 mg IVPUSH Q8H PRN PRN Reason: Nausea and Vomiting Oxybutynin Chloride (Oxybutynin Chloride Er 5 Mg Tab.Er.24) 5 mg PO DAILY [facility] Last Admin: 09/13/23 08:37 Dose: 5 mg Documented By: TANNER Pregabalin (Pregabalin 150 Mg Capsule) 150 mg PO TID REPLACED BY [facility] Last Admin: 09/13/23 08:38 Dose: 150 mg Documented By: TANNER Sodium Chloride (0.9 % Sodium Chloride Flush 3 Ml Syringe) 3 ml IVFLUSH QSHIFT REPLACED BY [facility] Last Admin: 09/13/23 07:31 Dose: 3 ml Documented By: TANNER Trazodone HCl (Trazodone Hcl 100 Mg Tablet) 100 mg PO BEDTIME REPLACED [facility] Last Admin: 09/12/23 20:26 Dose: 100 mg Documented By: KT Vitamin D (Cholecalciferol (Vitamin D3) 25 Mcg Tablet) 25 mcg PO DAILY [facility] Last Admin: 09/13/23 08:38 Dose: 25 mcg Documented By: TANNER Labs 09/13/23 05:21 09/11/23 04:58 Labs: Laboratory Results - last 24 hr 09/12/23 09/12/23 09/12/23 11:47 17:25 19:45 MCV 88.4 MCH 27.8 MCHC 31.5 RDW 18.3 H Plt Count 161 MPV 12.3 Absolute Nucleated RBC 0.000 Nucleated RBC % (auto) 0.0 POC Glucose 105 125 H 09/13/23 09/13/23 09/13/23 05:21 07:23 11:17 MCV 87.8 MCH 27.6 MCHC 31.5 RDW 17.7 H Plt Count 153 L MPV 11.8 Absolute Nucleated RBC 0.000 Nucleated RBC % (auto) 0.0 POC Glucose 114 116 H Microbiology Microbiology Results: Microbiology 09/11/23 Unknown Urine Culture - Final Urine clean catch - Urine echeverria top Assessment and Plan (1) Acute GI bleeding: Status: Acute (2) Non-insulin dependent type 2 diabetes mellitus: Status: Acute (3) CVA (cerebral vascular accident): Status: Acute Plan 77-year-old woman admitted with GI bleed with positive stool occult. Lives in independent living with almost 24 hours of care daily. No further bleeding since admission 1.GI bleed, unspecified -GI offered: However patient refused -no further bleeding noted -hemoglobin stable at this time Discussed with family and healthcare proxy. Prefer conservative approach. We will follow clinically and monitor hemoglobin. Wish to avoid intervention if possible 2.Diabetes mellitus type 2 -acceptable control on current therapies -lispro correrctional scale -adjust as indicated 3. History of CVA -at baseline -no acute issues 4.Hyperlipidemia -Continue statin Pneumatics Full code Healthcare proxy Mariely Florencego [phone] Patient require ongoing hospitalization to monitor for signs and symptoms of GI bleed into follow hemoglobin Quality Stroke Does the patient have a stroke diagnosis?: No VTE Prior VTE?: No VTE Risk Level:: Medical - moderate - high VTE Device Contraindication: N/A - Device Ordered VTE Drug Contraindication: Treatment Not Indicated
[2023-09-13 15:22] VITALS: BP 105/61; PULSE 57; RESP 16; TEMP 36.4; O2SAT 99
--- NOTE | 2023-09-13 16:17 | PM.EVENT ---
Event Note Date of Service: 09/13/23 Event Note: Patient more somnolent than this a.m.. Will check VBG to rule out hypercarbia Time Spent With Patient Time: Total time managing care of this patient today ____ minutes.
[2023-09-13 16:21] LABS: VBG Base Excess 10.4 mmol/L; VBG HCO3 37 mmol/L (22-26); VBG pCO2 61 mmHg; VBG pH 7.39 (7.32-7.43); VBG pO2 70 mmHg
[2023-09-13 16:34] LABS: Venous Blood Gas Refer to POC result
[2023-09-13 16:39] LABS: Glucose, Whole Blood 106 mg/dL (60-115)
[2023-09-13 17:24] VITALS: PULSE 64; O2SAT 87
[2023-09-13 18:32] VITALS: O2SAT 94
[2023-09-13 19:12] VITALS: BP 103/61; PULSE 64; RESP 16; TEMP 36.5; O2SAT 92
[2023-09-13 20:23] LABS: Glucose, Whole Blood 97 mg/dL (60-115)
[2023-09-14 03:17] VITALS: BP 111/61; PULSE 57; RESP 18; TEMP 36.6; O2SAT 94
[2023-09-14 05:39] LABS: MANUAL DIFF FLAG NO
[2023-09-14 05:42] LABS: Basophils Percent Auto 0.3 % (0-2); Eosinophils Absolute Auto 0.1 X10*3/uL (0.0-0.4); Eosinophils Percent Auto 1.8 % (0-4); Hematocrit 30.1 % (37.0-47.0); Hemoglobin 9.4 g/dl (12.0-16.0); Imm Gran Abs Auto 0.01 X10*3/uL (0.00-0.03); Imm Gran Pct Auto 0.2 % (0.0-0.4); Lymphocytes Absolute Auto 1.6 X10*3/uL (1.2-4.9); Lymphocytes Percent Auto 24.5 % (20-40); Mean Corpuscular HGB Conc 31.2 g/dl (31.0-35.0); Mean Corpuscular Hemoglobin 27.6 pg (27.0-33.0); Mean Corpuscular Volume 88.5 fL (80.0-98.0); Monocytes Absolute Auto 0.6 X10*3/uL (0.1-1.2); Monocytes Percent Auto 8.5 % (2-11); Neutrophils Absolute Auto 4.3 x10*3/uL (2.0-8.3); Neutrophils Percent Auto 64.7 % (45-73); Platelet Count 173 X10*3/uL (160-400); Red Cell Distribution Width 17.3 % (11.0-16.0); White Blood Count 6.6 X10*3/uL (4.8-10.8)
[2023-09-14 06:08] LABS: Alanine Aminotransferase < 5 U/L (0-31); Albumin Level 3.2 g/dL (3.5-5.0); Alkaline Phosphatase 58 U/L (39-117); Anion Gap 9 (12-20); Aspartate Amino Transferase 9 U/L (5-31); Bilirubin Total 0.4 mg/dL (0.0-1.0); Blood Urea Nitrogen 25 mg/dL (9-16); Calcium 8.9 mg/dL (8.4-10.2); Carbon Dioxide 33 mmol/L (22-29); Chloride 105 mmol/L (96-108); Creatinine Clr Calc Pharmacy 50.2; Estimated Glomerular Filt Rate 54; Glucose Fasting 98 mg/dL (60-99); Potassium 4.3 mmol/L (3.3-5.1); Sodium 143 mmol/L (135-145); Total Protein 6.4 g/dL (6.5-8.0)
[2023-09-14 07:23] LABS: Glucose, Whole Blood 95 mg/dL (60-115)
[2023-09-14 07:26] VITALS: BP 120/56; PULSE 61; RESP 16; TEMP 37; O2SAT 92
[2023-09-14] MEDS: 0.9 % Sodium Chloride Flush 3 ML SYRINGE IVFLUSH ×2 (07:31→15:23)
[2023-09-14 07:38] VITALS: PULSE 61; O2SAT 92
[2023-09-14] MEDS: Fluticasone Propionate 250 MCG BLST.W.DEV 1 PUFF INHALE (07:38)
[2023-09-14 07:41] VITALS: PULSE 61; RESP 16; O2SAT 94
[2023-09-14] MEDS: FLUoxetine HCl 20 MG CAPSULE PO (08:55)
[2023-09-14] MEDS: Cyanocobalamin (Vitamin B-12) 500 MCG TABLET PO (08:56)
[2023-09-14] MEDS: Folic Acid 1 MG TABLET 0.5 MG PO (08:56)
[2023-09-14] MEDS: Pregabalin 150 MG CAPSULE PO ×2 (08:57→15:23)
[2023-09-14] MEDS: oxyBUTYnin chloride ER 5 MG TAB.ER.24 PO (08:57)
[2023-09-14] MEDS: levETIRAcetam 250 MG TABLET PO (08:57)
[2023-09-14] MEDS: Furosemide 20 MG TABLET PO (08:57)
[2023-09-14] MEDS: Metoprolol Succinate ER 25 MG TAB.ER.24H PO (08:57)
[2023-09-14] MEDS: Cholecalciferol (Vitamin D3) 25 MCG TABLET PO (08:58)
[2023-09-14 11:04] LABS: Glucose, Whole Blood 183 mg/dL (60-115)
[2023-09-14] MEDS: Insulin Lispro 100 UNIT/ML 3 ML VIAL SUBCUT (12:25)
[2023-09-14 12:26] VITALS: PULSE 61
--- NOTE | 2023-09-14 14:11 | P.DS_ITS ---
DS: Providers Provider Date of Service: 09/14/23 Date of admission: 09/10/23 13:50 Date of discharge: 09/14/23 Primary care physician: Cliff Walsh MD Consults: 09/10/23 13:50 Consult to Gastroenterology Routine Consulting Provider: Dario Braga Reason for consultation: GI bleed 09/10/23 18:20 Consult to Wound Care Routine Reason for consultation: redness to sacrum/buttocks. DS: Diagnosis Discharge Diagnosis (1) Acute GI bleeding: Status: Acute (2) Non-insulin dependent type 2 diabetes mellitus: Status: Acute (3) CVA (cerebral vascular accident): Status: Acute DS: Summary Hospital Course Hospital Course: 77-year-old woman with history of COPD, CHF, CVA, diabetes mellitus presented to the ER with GI bleeding. Unfortunately patient has a history of baseline confusion, likely dementia and unable to answer any questions regarding what brought her to the emergency department. Lives at [facility], staff called EMS and noted bleeding. Hemoglobin 11.2, hematocrit 36.3, platelets a 166, normal white blood cell count, no fever, sodium 146, creatinine 1.29, stool occult positive, stable blood pressure. Patient received 1 L of IV fluid and IV Protonix in the ER. [facility] Admitted to general medical floor. Seen in consultation by GI however patient declined colonoscopy. She was observed for 48 hours with no change in her hemoglobin and without active bleeding. At this time she is medically acceptable to return home and resume all her services Time Attestation Discharge coordination time: Greater than 30 minutes Quality: Safe Use of Opioids Does Pt have an Active Cancer Diagnosis on the Problem List?: No Quality: Stroke Does the patient have a stroke diagnosis?: No Physical Exam Vital Signs: Vital Signs: Last Vital Signs Temp 98.6 F 09/14/23 07:26 Pulse 61 09/14/23 12:26 Resp 16 09/14/23 07:41 BP 120/56 L 09/14/23 07:26 Pulse Ox 92 09/14/23 07:38 O2 Del Method Nasal Cannula 09/14/23 07:38 O2 Flow Rate 1 09/14/23 07:38 Oxygen Flow Rate 2 09/10/23 11:08 BMI result Body Mass Index 28.4 Const: Other: Somnolent yet arousable. Responds appropriately to questioning HEENT: Other: Right facial droop; baseline per family Resp: Other: Clear to auscultation bilaterally no rales rhonchi or wheezes Cardio: Other: No S4; positive S1-S2; no S3 murmurs rubs or gallops GI: Other: Soft nontender nondistended normoactive bowel sounds Extrem: Other: No edema bilaterally DS: Data Data Completed and Pending Completed studies during hospitalization [Text1]: Procedures Introduction of Remdesivir Anti-infective into Peripheral Vein, Percutaneous Approach, [employer] 5 (08/02/23) Labs on day of discharge: Laboratory Results - last 24 hr 09/13/23 09/13/23 09/13/23 16:13 16:28 20:10 WBC RBC Hgb Hct MCV MCH MCHC RDW Plt Count MPV Immature Gran % (Auto) Neut % (Auto) Lymph % (Auto) [place] % (Auto) Eos % (Auto) Baso % (Auto) Lymph # (Auto) [place] # (Auto) Eos # (Auto) Baso # (Auto) Abs Immat Gran (auto) Absolute Neuts (auto) Absolute Nucleated RBC Nucleated RBC % (auto) VBG pH 7.39 VBG pCO2 61 VBG pO2 70 VBG HCO3 37 H VBG O2 Saturation 94.0 VBG Base Excess 10.4 Sodium Potassium Chloride Carbon Dioxide Anion Gap BUN Creatinine Estim Creat Clear Calc Estimated GFR POC Glucose 106 97 Fasting Glucose Calcium Total Bilirubin AST ALT Alkaline Phosphatase Total Protein Albumin 09/14/23 09/14/23 09/14/23 05:34 07:11 10:54 WBC 6.6 RBC 3.40 L Hgb 9.4 L Hct 30.1 L MCV 88.5 MCH 27.6 MCHC 31.2 RDW 17.3 H Plt Count 173 MPV 11.0 Immature Gran % (Auto) 0.2 Neut % (Auto) 64.7 Lymph % (Auto) 24.5 [place] % (Auto) 8.5 Eos % (Auto) 1.8 Baso % (Auto) 0.3 Lymph # (Auto) 1.6 [place] # (Auto) 0.6 Eos # (Auto) 0.1 Baso # (Auto) 0.0 Abs Immat Gran (auto) 0.01 Absolute Neuts (auto) 4.3 Absolute Nucleated RBC 0.000 Nucleated RBC % (auto) 0.0 VBG pH VBG pCO2 VBG pO2 VBG HCO3 VBG O2 Saturation VBG Base Excess Sodium 143 Potassium 4.3 Chloride 105 Carbon Dioxide 33 H Anion Gap 9 L BUN 25 H Creatinine 1.00 Estim Creat Clear Calc 50.2 Estimated GFR 54 POC Glucose 95 183 H Fasting Glucose 98 Calcium 8.9 Total Bilirubin 0.4 AST 9 ALT < 5 Alkaline Phosphatase 58 Total Protein 6.4 L Albumin 3.2 L Discharge Plan Discharge Anticipated Discharge Date/Time: 09/14/23 13:55 Patient Disposition: Home Health Service Discharge Diagnosis: GI bleed Referrals: Cliff Walsh MD [Primary Care Provider] - 1 Week Discharge Medications: Continued loperamide 2 mg Capsule 2 mg PO Q4H PRN (Reason: Diarrhea) Rx Instructions: administer after each loose stool until symptoms controlled; do not exceed 8 mg per 24 hrs levetiracetam [Keppra] 250 mg Tablet 250 mg PO BID triamcinolone acetonide 0.1 % Ointment 1 appl TOPICAL BID nystatin 100,000 unit/gram Cream 1 appl TOPICAL BID fluticasone propionate 220 mcg/actuation Hfa Aerosol Inhaler 1 puff INHALATION BID atorvastatin 80 mg tablet 80 mg PO QPM albuterol sulfate 2.5 mg /3 mL (0.083 %) solution for nebulization 2.5 mg inhalation Q6H PRN (Reason: Shortness Of Breath Or Wheezing) glipizide 5 mg tablet extended release 24hr 5 mg PO QAM clopidogrel 75 mg tablet 75 mg PO QAM folic acid 400 mcg tablet 0.4 mg PO QAM aspirin 81 mg tablet,delayed release (DR/EC) 81 mg PO QAM acetaminophen 500 mg Tablet 500 mg PO BID cyanocobalamin (vitamin B-12) 500 mcg tablet 500 mcg PO QAM oxybutynin chloride 5 mg tablet extended release 24hr 5 mg PO QAM fluoxetine 20 mg capsule 20 mg PO QAM zinc oxide 20 % Ointment 1 appl TOPICAL DAILY PRN (Reason: Wound Healing) Rx Instructions: apply to buttocks trazodone 100 mg tablet 100 mg PO BEDTIME furosemide 20 mg tablet 20 mg PO BID@0900,1700 pregabalin 150 mg capsule 150 mg PO TID cholecalciferol (vitamin D3) 25 mcg (1,000 unit) tablet 25 mcg PO DAILY metoprolol succinate 25 mg tablet extended release 24 hr 25 mg PO DAILY Discharge Orders: Discharge Order (Routine); Ordered 09/14/23 Ordered By: Fernandez Love Diet: Advance to usual diet Activity on Discharge: As tolerated Stand Alone Forms: Patient Portal Discharge page Care Plan Goals: Resume all pre-hospital medications as ordered Health Concerns: Resume all therapies and nursing schedules as prior to hospital Plan of Treatment: Follow-up with PCP next available Assessment: See discharge summary
--- NOTE | 2023-09-14 15:00 | MHC.CM.PN ---
IMM 09/14/23 FEMALE 77 DX GIB PATIENT IS DISCHARGED TODAY TO [facility]. She has 13/02 care provided by [facility] . The discharge was coordinated with Shea. Staff will meet patient at the apartment for care. Shea stated that she spoke with Mariely. Mariely was left 2 VM, no return calls received. Shea stated that [facility] provides home pPT. A referral was sent. [facility] is not active. Shea was notified. The name of the correct agency was requested. Shea was not able to provide the Co name. She provided contact info for [facility]. A VM was left requesting resumption of services. BLS is booked for 4:30pm picker and packer time at Shea's request. DC info was faxed to [facility] as requested.
[2023-09-14 15:10] VITALS: BP 122/57; PULSE 70; RESP 16; TEMP 36.2; O2SAT 92
[2023-09-14 15:47] LABS: Glucose, Whole Blood 115 mg/dL (60-115)
== END 2023-09-14 17:50 | disposition home health service (06) | DRG 379 ==
LOC: HO.ED 12:29 → HO.EDOVER 14:15 → HO.S3 16:14
PROVIDERS: Admitting Provider Nurse Practitioner Acute Care; Emergency Provider Emergency Medicine; PCP Internal Medicine; Visit Provider Hospitalist
DX: K92.1 Melena (principal); J44.9 Chronic obstructive pulmonary disease, unspecified; E78.5 Hyperlipidemia, unspecified; J45.909 Unspecified asthma, uncomplicated; E11.42 Type 2 diabetes mellitus with diabetic polyneuropathy; F03.90 Unspecified dementia, unspecified severity, without behavioral disturbance, psychotic disturbance, mood disturbance, and anxiety; I50.9 Heart failure, unspecified; Z86.73 Personal history of transient ischemic attack (TIA), and cerebral infarction without residual deficits; Z79.02 Long term (current) use of antithrombotics/antiplatelets; Z79.51 Long term (current) use of inhaled steroids; Z79.82 Long term (current) use of aspirin; Z79.84 Long term (current) use of oral hypoglycemic drugs; Z79.899 Other long term (current) drug therapy
CPT/HCPCS: 36415; 78278; 80048; 80053; 81001; 82272; 82803; 82947; 85014; 85018; 85025; 85027; 85610; 86850; 86900; 86901; 87086; 93005; 94640; 97162; 99285; A9512; C9113

== ENCOUNTER → 2023-09-10 11:07 | Outpatient (BNV) | payer MEDICARE, MEDICAID, SELFPAY | PROVIDERS: Admitting Provider Nurse Practitioner Acute Care; Emergency Provider Emergency Medicine; PCP Internal Medicine; Visit Provider Internal Medicine Cardiovascular Disease | DX: I50.9 Heart failure, unspecified (principal) | CPT/HCPCS: 93010 ==

== ENCOUNTER → 2023-09-10 13:50 | Outpatient (BNV) | payer MEDICARE, MEDICAID, SELFPAY | PROVIDERS: Admitting Provider Nurse Practitioner Acute Care; Emergency Provider Emergency Medicine; PCP Internal Medicine; Visit Provider Nurse Practitioner Acute Care | DX: K92.2 Gastrointestinal hemorrhage, unspecified (principal); E11.9 Type 2 diabetes mellitus without complications; Z86.73 Personal history of transient ischemic attack (TIA), and cerebral infarction without residual deficits | CPT/HCPCS: 99223; 99232; 99233; 99238 ==

== ENCOUNTER 2023-11-03 09:21 | Emergency (ER) | payer MEDICARE, MEDICAID, SELFPAY ==
--- NOTE | ~2023-11-03 | CT_ITS ---
EXAMINATION: CT CHEST, ABDOMEN, AND PELVIS WITH CONTRAST CLINICAL INFORMATION: Status post fall, abdominal trauma COMPARISON: None TECHNIQUE: Multidetector volumetric CT imaging of the chest, abdomen, and pelvis was obtained after the administration of 85 mL of Omnipaque 350 intravenous contrast without immediate adverse reactions. Axial MIP volume rendering provided. Sagittal and coronal reformatted images were obtained. This CT examination was performed using dose optimization techniques as appropriate, variously including the following: *Automated exposure control *Adjustment of mA and/or kV according to patient size (this includes techniques or standardized protocols for targeted exams where dose is matched to indication/reason for exam; i.e. extremities or head) *Use of iterative reconstruction technique DLP: 855 mGy-cm FINDINGS: LUNGS: Examination is limited due to motion. There are a few lung nodules seen sided chest left lower lobe image 255 there is 0.5 cm nodule seen. Right upper lobe nodule seen on image 75, measured 0.7 cm. 1.3 cm nodule seen in the right upper lobe, image 105, there is groundglass opacity seen in the right upper lobe along the superior aspect of the fissure. There is ill-defined right upper lobe 0.8 cm nodule seen on image 105. There is subpleural atelectasis seen bilaterally and consolidation in the right lower lobe. MEDIASTINUM: Patient is status post CABG. Thyroid gland revealed 1.7 cm low-attenuation lesion, enlarged and there are more nodules seen through the left and right thyroid lobe. Aorta is atherosclerotic with calcified but not dilated. There is no hilar or mediastinal lymphadenopathy CORONARY ARTERY CALCIFICATION: Heavily calcifications seen but patient is status post CABG.. . PLEURA: There is pleural thickening but no pleural effusion. AXILLA: No lymphadenopathy by size criteria. LIVER, GALLBLADDER, AND BILIARY TREE: The liver appears unremarkable in size, shape, and attenuation. No focal hepatic lesion or biliary ductal dilatation is appreciated. Unremarkable appearance of the gallbladder. PANCREAS: Unremarkable SPLEEN: Unremarkable ADRENAL GLANDS: Left adrenal gland revealed 2.21 x 1.7 cm nodule of low attenuation most likely adenoma. Right adrenal gland is unremarkable. KIDNEYS AND URETERS: Right kidney revealed multiple small cortical cysts and conglomerate of stones, measured 0.5 cm and vascular calcifications present. Left kidney revealed parapelvic cyst in the lower pole, no hydroureteronephrosis and 0.3 cm nonobstructing calculus as well as vascular calcifications.. BLADDER: Urinary bladder demonstrate circumferentially thickened wall of urinary bladder most likely due to chronic process. GASTROINTESTINAL TRACT: Extensive changes of colonic diverticulosis without diverticulitis normal appendix present. Loops of small bowel unremarkable. Stomach is decompressed. Mesentery is normal. ABDOMINAL WALL: There is fat-containing small umbilical hernia. LYMPH NODES: No evidence of adenopathy by size criteria. VASCULAR: There are atherosclerotic calcifications of not dilated abdominal aorta and maintained with trace. PELVIC VISCERA: Calcified uterine fibroids present. There is small amount of fluid in the pelvis. OSSEOUS STRUCTURES: Patient is status post median sternotomy. No evidence of fractures in the thoracic spine there is mild wedge-shaped deformity of L1 vertebral body of indeterminate age and there are degenerative changes at the level of L4-L5 and L5-S1 with grade 1 anterior listhesis of L5 over S1. Ribs are intact. No pelvic fractures seen. CT/CT abdomen pelvis w IV con IMPRESSION: 1. No evidence of fractures in the chest, abdomen or pelvis. 2. Multiple lung nodules. 3. Bilateral nephrolithiasis without hydronephrosis. 4. Diverticulosis without diverticulitis. 5. Small amount of free fluid in the pelvis. 6. Calcified uterine fibroids. 7. Left adrenal gland adenoma. 8. Circumferential thickening of urinary bladder wall most likely due to chronic process. 9. Degenerative changes in lower lumbar spine with grade 1 anterolisthesis of L5 over S1 and mild wedge-shaped deformity of L1 vertebral body consistent with fracture of indeterminate age. 10. Thyroid nodules. 11. Lung consolidation in the right lower lobe and subpleural atelectasis bilaterally, pleural thickening. 12. Status post CABG.
--- NOTE | ~2023-11-03 | XR_ITS ---
EXAMINATION: XR BILATERAL HIPS WITH AP PELVIS CLINICAL INFORMATION: Fall. Pain. COMPARISON: Previous CT of the abdomen and pelvis from earlier the same day TECHNIQUE: AP view of the pelvis and single views of each hip were obtained. FINDINGS: Bone alignment is normal. No fracture or dislocation. Mild arthritis of both hip joints with small osteophytes. Bones of the pelvis are normal. Degenerative changes of the visualized lower lumbar spine. Excreted contrast in the bladder. Right pelvic calcification representing calcified uterine fibroid. Atherosclerotic disease. XR/XR hips PORTILLO min 3V IMPRESSION: No fracture or dislocation. Degenerative changes.
--- NOTE | ~2023-11-03 | CT_ITS ---
EXAMINATION: CT HEAD WITHOUT CONTRAST CT CERVICAL SPINE WITHOUT CONTRAST CLINICAL INFORMATION: Status post fall with the head and neck stroke COMPARISON: 11/27/2022 TECHNIQUE: CT of the head and cervical spine were performed without intravenous contrast. Multiplanar reformats were rendered and reviewed. This CT examination was performed using dose optimization techniques as appropriate, variously including the following: *Automated exposure control *Adjustment of mA and/or kV according to patient size (this includes techniques or standardized protocols for targeted exams where dose is matched to indication/reason for exam; i.e. extremities or head) *Use of iterative reconstruction technique DLP: 705mGy-cm. FINDINGS: CT head: No intracranial hemorrhage, large infarction, or mass lesion is seen. No extra-axial collection is appreciated. There is encephalomalacia in the right periventricular white matter and large lacunar infarct seen again in the basal ganglia on the right and along the corpus callosum. Evidence of fractures. Paranasal sinuses and mastoids are well aerated.. The visualized paranasal sinuses and mastoid air cells are clear. CT cervical spine: The cervical alignment is normal. The craniocervical junction is normal. There is straightening of cervical lordosis secondary to multilevel degenerative changes with narrowing of C4-C5, C5-C6, C6-C7, C7-T1. There is no fractures, subluxations, spondylolysis or listhesis. Soft tissues are unremarkable. There are multiple calcified nodules seen in the thyroid gland. Lung apices are clear of nodules or masses and no evidence of pneumothorax. CT/CT cervical spine wo IV con IMPRESSION: CT HEAD: 1. No acute intracranial finding. 2. Old lacunar infarct in the right basal ganglia and at the corpus callosum. CT CERVICAL SPINE: 1. No cervical spine fracture or traumatic malalignment identified. 2. Multilevel degenerative changes. 3. Multiple calcified nodules in the thyroid gland.
--- NOTE | 2023-11-03 09:29 | ED.GENADULT ---
HPI - General Adult General Chief complaint: Fall Stated complaint: FALL YESTERDAY L SIDED HEAD/HIP PAIN Time Seen by Provider: 11/03/23 11:41 Source: patient and EMS Mode of arrival: EMS Limitations: altered mental status History of Present Illness HPI narrative: This is a 77-year-old female history of hypertension, hyperlipidemia, TIA, previous stroke, diabetes, CHF, COPD, obesity presenting to the emergency department status post unwitnessed that occurred yesterday, unclear if she hit her head or lost consciousness. Unclear patient is on blood thinners. Patient is coming from assisted facility where they think patient has been having left-sided hip pain status post fall. Patient has been lying in bed ever since. Unclear what made them have patient come in today rather than yesterday according to EMS when they obtained report they stated that patient had no pain yesterday and just started complaining of pain today. Patient poor historian and unable to provide me with history or review of systems Related Data Home Medications ?Medication ?Instructions ?Recorded ?Confirmed acetaminophen 500 mg tablet 500 mg PO BID 08/02/23 09/10/23 albuterol sulfate 2.5 mg/3 mL 2.5 mg inhalation Q6H PRN 08/02/23 09/10/23 (0.083 %) solution for nebulization Shortness Of Breath Or Wheezing aspirin 81 mg tablet,delayed 81 mg PO QAM 08/02/23 09/10/23 release atorvastatin 80 mg tablet 80 mg PO QPM 08/02/23 09/10/23 cholecalciferol (vitamin D3) 25 25 mcg PO DAILY 08/02/23 09/10/23 mcg (1,000 unit) tablet clopidogrel 75 mg tablet 75 mg PO QAM 08/02/23 09/10/23 cyanocobalamin (vitamin B-12) 500 500 mcg PO QAM 08/02/23 09/10/23 mcg tablet fluoxetine 20 mg capsule 20 mg PO QAM 08/02/23 09/10/23 folic acid 400 mcg tablet 0.4 mg PO QAM 08/02/23 09/10/23 furosemide 20 mg tablet 20 mg PO BID@0900,1700 08/02/23 09/10/23 glipizide 5 mg tablet, extended 5 mg PO QAM 08/02/23 09/10/23 release 24 hr metoprolol succinate 25 mg 25 mg PO DAILY 08/02/23 09/10/23 tablet,extended release 24 hr oxybutynin chloride 5 mg 5 mg PO QAM 08/02/23 09/10/23 tablet,extended release 24 hr pregabalin 150 mg capsule 150 mg PO TID 08/02/23 09/10/23 trazodone 100 mg tablet 100 mg PO BEDTIME 08/02/23 09/10/23 zinc oxide 20 % topical ointment 1 appl topical DAILY PRN Wound 08/02/23 09/10/23 Healing fluticasone propionate 220 1 puff inhalation BID 09/10/23 09/10/23 mcg/actuation HFA aerosol inhaler levetiracetam 250 mg tablet 250 mg PO BID 09/10/23 09/10/23 (Keppra) loperamide 2 mg capsule 2 mg PO Q4H PRN Diarrhea 09/10/23 09/10/23 nystatin 100,000 unit/gram topical 1 appl topical BID 09/10/23 09/10/23 cream triamcinolone acetonide 0.1 % 1 appl topical BID 09/10/23 09/10/23 topical ointment Previous Rx's ?Medication ?Instructions ?Recorded doxycycline hyclate 100 mg capsule 100 mg PO BID 10 days #20 caps 11/03/23 Allergies Allergy/AdvReac Type Severity Reaction Status Date / Time Penicillins Allergy Unknown Verified 11/03/23 09:49 piroxicam Allergy Unknown Verified 11/03/23 09:49 shrimp Allergy Hives Verified 11/03/23 09:49 Sulfa (Sulfonamide Allergy Unknown Verified 11/03/23 09:49 Antibiotics) Review of Systems Review of Systems: Yes all other systems are reviewed and are negative [facility] Past Medical History Medical History (Updated 11/03/23 @ 15:02 by LINDY De La Torre) COPD (chronic obstructive pulmonary disease) Non-insulin dependent type 2 diabetes mellitus Peripheral neuropathy HLD (hyperlipidemia) CVA (cerebral vascular accident) Heart failure, unspecified Social History Social History Household Members: Unknown / Unable to assess Housing: Assisted Living Facility Do you presently have visiting nurse or other home services: Yes Unable to assess alcohol history related to: Unknown Alcohol intake: never Patient Tobacco Use Status: Never used Tobacco Advance Directives: Yes Advance Directives on File: Yes Advance Directives Date on File: 09/15/23 service: No Physical Exam ED Vital Signs: Vital Signs - 24 hr 11/03/23 09:47 Temperature 99.6 F Pulse Rate 72 Respiratory Rate 24 H Blood Pressure 103/44 L Pulse Oximetry 97 Oxygen Delivery Method Nasal Cannula BMI result Body Mass Index 32.7 Vital signs stable Appearance: Alert.? Awake. Not oriented to person, place time or situation.? No acute distress.? Head: Normocephalic, atraumatic, no step-offs or deformities Eyes: Pupils equal, round and reactive to light.? ENT: Pharynx normal.? Neck: Normal inspection.? Neck supple.? CVS: Normal heart rate and rhythm.? Pulses normal.? Respiratory: No respiratory distress.? Breath sounds normal.? Abdomen: Soft and nontender.? Skin: Skin warm and dry.? Normal skin color.? Normal skin turgor.? Extremities: No lower extremity edema.? No calf ttp. Global weakness + Patient noted to have left hip externally rotated and shortened. 2+ dorsalis pedis, anterior tibialis, posterior tibialis pulses equal bilateral. 2+ popliteal pulses. Normal femoral pulses bilaterally. Normal sensation distally. No overlying skin changes or distracting injuries. Back: No midline tenderness, no C-spine tenderness, full range of motion, no CVA tenderness bilaterally Neuro: Patient alert, awake, not oriented to person, place time or situation. Course Reevaluation(s) Reevaluation #1: CBC with a baseline normocytic anemia. Chemistry with chronically elevated carbon dioxide and low anion gap. This is not an acute finding. BUN and creatinine slightly elevated at baseline patient tolerating p.o., will encourage p.o. hydration. Troponin negative, CPK normal. BNP within normal limits. Normal lipase. Coags normal. CT cervical spine no cervical spine fracture, traumatic malalignment, hi multilevel degenerative changes noted. Calcified thyroid nodules. No acute findings in the head. Old lacunar infarcts in the right basal ganglia in the corpus callosum. CT of abdomen and chest no acute fractures and chest, abdomen or pelvis multiple lung nodules, bilateral nephrolithiasis without hydronephrosis. Diverticulosis without diverticulitis. Small amount of free fluid in the pelvis. Calcified uterine fibroids. Left adrenal adenoma. Circumferential thickening of the urinary bladder wall most likely due to chronic process. Degenerative changes in the lower lumbar spine with grade 1 anterior lithiasis over L5 and over S1 and mild wedge-shaped deformity over L1 consistent with fracture of indeterminate age no point tenderness overlying L1 on exam, no focal neuro deficits. No signs of cauda equina or cord compression on my exam. There is a consolidation in the right lower lobe and subpleural atelectasis bilaterally, will treat for possible pneumonia patient is a poor historian, minimally verbal. Time: 14:58 Reevaluation #2: xray hip pending, ua pending sign out to [facility] Medications Administered Discontinued Medications Generic Name Dose Route Start Last Admin Trade Name Freq PRN Reason Stop Dose Admin Iohexol 100 ml 11/03/23 12:31 11/03/23 12:31 Iohexol 350 Mg/Ml 100 Ml Infus..Btl IV 11/03/23 12:32 85 ml ONCE ONE Administration Medical Decision Making Medical Decision Making [facility] Narrative: 77-year-old female presents status post unwitnessed fall. Minimally verbal. Coming from assisted facility Physical exam patient minimally verbal. Not answering my questions. Patient noted to have left hip externally rotated and shortened. 2+ dorsalis pedis, anterior tibialis, posterior tibialis pulses equal bilateral. 2+ popliteal pulses. Normal femoral pulses bilaterally. Normal sensation distally. No overlying skin changes or distracting injuries. Will rule out traumatic injuries to head, neck, chest, abdomen and pelvis. Will rule out rhabdo metabolic derangements. Will also rule out urinary tract infection. Will rule out hip fracture dislocation. Plan at this time imaging, labs, urine. Differential Diagnosis Differential Diagnoses: The differential diagnosis associated with the presentation includes Will rule out traumatic injuries to head, neck, chest, abdomen and pelvis. Will rule out rhabdo metabolic derangements. Will also rule out urinary tract infection. Will rule out hip fracture dislocation. Admission/Observation Consideration of admission/observation: Escalation of care including admission/observation considered possible Lab Data [facility] Lab Attestation statement: I reviewed the patient's lab results. 11/03/23 10:10 11/03/23 10:10 Labs: Lab Results 11/03/23 11/03/23 Range/Units 09:34 10:10 WBC 7.7 (4.8-10.8) X10*3/uL RBC 3.97 L (4.20-5.50) X10*6/uL Hgb 9.7 L (12.0-16.0) g/dl Hct 31.9 L (37.0-47.0) % MCV 80.4 (80.0-98.0) fL MCH 24.4 L (27.0-33.0) pg MCHC 30.4 L (31.0-35.0) g/dl RDW 16.5 H (11.0-16.0) % Plt Count 166 (160-400) X10*3/uL MPV 10.4 (9.4-12.3) fL Immature Gran % (Auto) 0.4 (0.0-0.4) % Neut % (Auto) 70.4 (45-73) % Lymph % (Auto) 18.5 L (20-40) % [place] % (Auto) 7.7 (2-11) % Eos % (Auto) 2.6 (0-4) % Baso % (Auto) 0.4 (0-2) % Lymph # (Auto) 1.4 (1.2-4.9) X10*3/uL [place] # (Auto) 0.6 (0.1-1.2) X10*3/uL Eos # (Auto) 0.2 (0.0-0.4) X10*3/uL Baso # (Auto) 0.0 (0.0-0.2) X10*3/uL Abs Immat Gran (auto) 0.03 (0.00-0.03) X10*3/uL Absolute Neuts (auto) 5.4 (2.0-8.3) x10*3/uL Absolute Nucleated RBC 0.000 (0.0-0.012) X10*3/uL Nucleated RBC % (auto) 0.0 (0.0-0.2) /100WBC PT 13.2 (11.1-13.3) SEC INR 1.1 (0.9-1.1) Sodium 145 (135-145) mmol/L Potassium 4.2 (3.3-5.1) mmol/L Chloride 107 (96-108) mmol/L Carbon Dioxide 32 H (22-29) mmol/L Anion Gap 10 L (12-20) BUN 18 H (9-16) mg/dL Creatinine 1.21 (0.5-1.4) mg/dL Estim Creat Clear Calc 38.3 Estimated GFR 43 POC Glucose 86 (60-115) mg/dL Random Glucose 90 (60-115) mg/dL Calcium 8.6 (8.4-10.2) mg/dL Magnesium 2.0 (1.6-2.6) mg/dL Total Bilirubin 0.3 (0.0-1.0) mg/dL AST 10 (5-31) U/L ALT 6 (0-31) U/L Alkaline Phosphatase 55 (39-117) U/L Total Creatine Kinase 35 (26-140) U/L Troponin I High Sens 4.9 (<3.5-17.0) ng/L B-Natriuretic Peptide 98 (<100) pg/mL Total Protein 6.8 (6.5-8.0) g/dL Albumin 3.3 L (3.5-5.0) g/dL Lipase 15 (8-78) U/L Independent Interpretation I performed an independent interpretation of an: CT Scan (CT/CT head/brain wo IV con IMPRESSION: CT HEAD: 1. No acute intracranial finding. 2. Old lacunar infarct in the right basal ganglia and at the corpus callosum. CT CERVICAL SPINE: 1. No cervical spine fracture or traumatic malalignment identified. 2. Multilevel degenerative changes. 3. Multipl) Interpretation: CT/CT abdomen pelvis w IV con IMPRESSION: 1. No evidence of fractures in the chest, abdomen or pelvis. 2. Multiple lung nodules. 3. Bilateral nephrolithiasis without hydronephrosis. 4. Diverticulosis without diverticulitis. 5. Small amount of free fluid in the pelvis. 6. Calcified uterine fibroids. 7. Left adrenal gland adenoma. 8. Circumferential thickening of urinary bladder wall most likely due to chronic process. 9. Degenerative changes in lower lumbar spine with grade 1 anterolisthesis of L5 over S1 and mild wedge-shaped deformity of L1 vertebral body consistent with fracture of indeterminate age. 10. Thyroid nodules. 11. Lung consolidation in the right lower lobe and subpleural atelectasis bilaterally, pleural thickening. 12. Status post CABG. Radiology Impression Discussion of test interpretation with radiology: I have reviewed the radiologist's reading. External Record Review External record reviewed: Inpatient record, Office record, Outpatient record, Prior outpatient labs, Prior outpatient radiology, Primary care record and Outside ED record Prescription Management I considered prescription management with: Antibiotic Chronic Conditions Patient?s care impacted by: Diabetes, Hypertension and Other Critical Care Time Critical Care Time Critical Care Time: No Discharge Plan Discharge Clinical Impression: Acute pain of left hip, Fall, Pneumonia Patient Disposition: Still a Patient Additional Instructions: Take your medications as prescribed. If you were prescribed antibiotics today, it is important that you take your medication to their entirety, do not skip any doses, do not finish them early. Follow-up with your primary care provider this week. Return to the emergency department with new or worsening symptoms. Such as fevers, chills, chest pain, shortness of breath, nausea, vomiting, dizziness, headache, vision changes, lethargy In case of emergency call 911 Prescriptions: New doxycycline hyclate 100 mg capsule 100 mg PO BID 10 Days Qty: 20 0RF No Action loperamide 2 mg Capsule 2 mg PO Q4H PRN (Reason: Diarrhea) Rx Instructions: administer after each loose stool until symptoms controlled; do not exceed 8 mg per 24 hrs levetiracetam [Keppra] 250 mg Tablet 250 mg PO BID triamcinolone acetonide 0.1 % Ointment 1 appl TOPICAL BID nystatin 100,000 unit/gram Cream 1 appl TOPICAL BID fluticasone propionate 220 mcg/actuation Hfa Aerosol Inhaler 1 puff INHALATION BID atorvastatin 80 mg tablet 80 mg PO QPM albuterol sulfate 2.5 mg /3 mL (0.083 %) solution for nebulization 2.5 mg inhalation Q6H PRN (Reason: Shortness Of Breath Or Wheezing) glipizide 5 mg tablet extended release 24hr 5 mg PO QAM clopidogrel 75 mg tablet 75 mg PO QAM folic acid 400 mcg tablet 0.4 mg PO QAM aspirin 81 mg tablet,delayed release (DR/EC) 81 mg PO QAM acetaminophen 500 mg Tablet 500 mg PO BID cyanocobalamin (vitamin B-12) 500 mcg tablet 500 mcg PO QAM oxybutynin chloride 5 mg tablet extended release 24hr 5 mg PO QAM fluoxetine 20 mg capsule 20 mg PO QAM zinc oxide 20 % Ointment 1 appl TOPICAL DAILY PRN (Reason: Wound Healing) Rx Instructions: apply to buttocks trazodone 100 mg tablet 100 mg PO BEDTIME furosemide 20 mg tablet 20 mg PO BID@0900,1700 pregabalin 150 mg capsule 150 mg PO TID cholecalciferol (vitamin D3) 25 mcg (1,000 unit) tablet 25 mcg PO DAILY metoprolol succinate 25 mg tablet extended release 24 hr 25 mg PO DAILY Print Language: South Korean
--- NOTE | 2023-11-03 09:32 | ECG_ITS ---
Test Reason : fall Blood Pressure : / mmHG Vent. Rate : 075 BPM Atrial Rate : 075 BPM P-R Int : 162 ms QRS Dur : 068 ms QT Int : 376 ms P-R-T Axes : 069 029 036 degrees QTc Int : 419 ms Normal sinus rhythm Normal ECG When compared with ECG of 10-SEP-2023 11:49, No significant change was found Referred By: Therese Whittaker Electronically Signed By:Christiano Guerra
[2023-11-03 09:38] LABS: Glucose, Whole Blood 86 mg/dL (60-115)
[2023-11-03 09:47] VITALS: BP 103/44; BP 132/68; PULSE 72; PULSE 78; RESP 24; TEMP 37.6; O2SAT 95; O2SAT 97; BMI 32.7
[2023-11-03 10:18] LABS: MANUAL DIFF FLAG NO
[2023-11-03 10:27] LABS: INTERNATIONAL NORM RATIO 1.1 (0.9-1.1); Prothrombin Time 13.2 SEC (11.1-13.3)
[2023-11-03 10:42] LABS: B Type Natriuretic Peptide 98 pg/mL (<100); Troponin-I High Sensitivity 4.9 ng/L (<3.5-17.0)
[2023-11-03 10:43] LABS: Basophils Percent Auto 0.4 % (0-2); Eosinophils Absolute Auto 0.2 X10*3/uL (0.0-0.4); Eosinophils Percent Auto 2.6 % (0-4); Hematocrit 31.9 % (37.0-47.0); Hemoglobin 9.7 g/dl (12.0-16.0); Imm Gran Abs Auto 0.03 X10*3/uL (0.00-0.03); Imm Gran Pct Auto 0.4 % (0.0-0.4); Lymphocytes Absolute Auto 1.4 X10*3/uL (1.2-4.9); Lymphocytes Percent Auto 18.5 % (20-40); Mean Corpuscular HGB Conc 30.4 g/dl (31.0-35.0); Mean Corpuscular Hemoglobin 24.4 pg (27.0-33.0); Mean Corpuscular Volume 80.4 fL (80.0-98.0); Mean Platelet Volume 10.4 fL (9.4-12.3); Monocytes Absolute Auto 0.6 X10*3/uL (0.1-1.2); Monocytes Percent Auto 7.7 % (2-11); Neutrophils Absolute Auto 5.4 x10*3/uL (2.0-8.3); Neutrophils Percent Auto 70.4 % (45-73); Platelet Count 166 X10*3/uL (160-400); Red Blood Count 3.97 X10*6/uL (4.20-5.50); Red Cell Distribution Width 16.5 % (11.0-16.0); White Blood Count 7.7 X10*3/uL (4.8-10.8)
[2023-11-03 11:13] LABS: Alanine Aminotransferase 6 U/L (0-31); Albumin Level 3.3 g/dL (3.5-5.0); Alkaline Phosphatase 55 U/L (39-117); Anion Gap 10 (12-20); Aspartate Amino Transferase 10 U/L (5-31); Bilirubin Total 0.3 mg/dL (0.0-1.0); Blood Urea Nitrogen 18 mg/dL (9-16); Calcium 8.6 mg/dL (8.4-10.2); Carbon Dioxide 32 mmol/L (22-29); Chloride 107 mmol/L (96-108); Creatinine Clr Calc Pharmacy 38.3; Estimated Glomerular Filt Rate 43; Glucose Random 90 mg/dL (60-115); Lipase 15 U/L (8-78); Potassium 4.2 mmol/L (3.3-5.1); Sodium 145 mmol/L (135-145); Total Protein 6.8 g/dL (6.5-8.0)
--- NOTE | 2023-11-03 11:13 | PC.NURSE ---
patient awake, non verbal due to old stroke, pt will shake her head to yes/no questions if asked. Pt unable to state her pain level just shakes head yes that she is in pain, iv inserted, labs drawn ekg performed, engineering professionals applied-nsr on monitor, vss, call coe within reach, staff from [facility] at bedside, will continue to monitor
[2023-11-03 12:00] VITALS: BP 108/46; PULSE 76; RESP 22; TEMP 37.2; O2SAT 96
--- NOTE | 2023-11-03 12:20 | PC.NURSE ---
pt to radiology
[2023-11-03] MEDS: iohexoL 350 MG/ML 100 ML INFUS..BTL IV (12:31)
--- NOTE | 2023-11-03 15:15 | PC.NURSE ---
pt to radiology
--- NOTE | 2023-11-03 16:16 | PC.NURSE ---
patient currently sleeping, vitals have been stable, awaiting results of radiology, will continue to monitor.
[2023-11-03 16:50] VITALS: BP 127/63; PULSE 70; RESP 20; TEMP 36.3; O2SAT 99
--- NOTE | 2023-11-03 17:10 | MHC.EDTECH ---
pt was found incontinent of urine by this tech, pt was triston cleaned, clean linen given, warm blankets given, pt is now comfortable in bed. rn aware
--- NOTE | 2023-11-03 17:26 | MHC.EDTECH ---
[facility] on [facility] - Please call them before discharging patient.
--- NOTE | 2023-11-03 18:10 | PC.NURSE ---
bladder scan performed, per request of provider- pt to have straight cath when an open room is available as patient is in a clark bed at this time. pt to go into room 16 after the patient goes up to the floor.
--- NOTE | 2023-11-03 19:03 | MHC.EDTECH ---
[facility] care @1900, received report from [employer] Sharyn
--- NOTE | 2023-11-03 19:27 | PC.NURSE ---
This RN assumed pt care @ 1900. Plan of care ongoing.
[2023-11-03 19:49] VITALS: BP 136/59; PULSE 70; RESP 20; TEMP 36.6; O2SAT 99
[2023-11-03 20:00] LABS: Appearance Urine Turbid; Color Urine Yellow; Glucose Urine UA Negative (Negative); Leukocyte Esterase Urine Large (3+) (Negative); Nitrite Urine Negative (Negative); PH 5.5 (5.0-9.0); Specific Gravity - Urine >= 1.030 (1.005-1.025); UMIC TRIGGER UACC YES; Urine Blood Moderate (2+) (Negative); Urine Ketones Negative (Negative); Urine Protein 30 (1+) mg/dL (Neg-Trace)
[2023-11-03 20:32] LABS: Bacteria Urine 3+ (None Seen); Hyaline Casts Urine 0-2 /LPF (0-2); UACC Culture Trigger YES; WBC Urine >50 /HPF (0-5)
--- NOTE | 2023-11-03 21:50 | PC.NURSE ---
This RN called Sintia @ [phone] who is the lead caregiver for tamra toribio. Report given to Sintia.
[2023-11-03 21:52] VITALS: BP 124/63; PULSE 72; RESP 12; TEMP 36.8; O2SAT 100
[2023-11-03 23:56] VITALS: BP 115/47; PULSE 75; RESP 20; TEMP 36.2; O2SAT 100
== END 2023-11-04 00:51 | disposition home or self-care (01) ==
PROVIDERS: Physician Assistant; Emergency Provider Emergency Medicine Emergency Medical Services
DX: M25.552 Pain in left hip (principal); J44.0 Chronic obstructive pulmonary disease with (acute) lower respiratory infection; J18.9 Pneumonia, unspecified organism; N39.0 Urinary tract infection, site not specified; I10 Essential (primary) hypertension; E11.9 Type 2 diabetes mellitus without complications; Z86.73 Personal history of transient ischemic attack (TIA), and cerebral infarction without residual deficits; Z91.81 History of falling
CPT/HCPCS: 36415; 51701; 70450; 71260; 72125; 73522; 74177; 80053; 81001; 81003; 82550; 82947; 83690; 83735; 83880; 84484; 85025; 85610; 87086; 93005; 99284; 99285; Q9967

== ENCOUNTER → 2023-11-03 09:32 | Outpatient (BNV) | payer MEDICARE, MEDICAID, SELFPAY | PROVIDERS: Emergency Provider Emergency Medicine Emergency Medical Services; Visit Provider Internal Medicine Cardiovascular Disease | DX: M25.552 Pain in left hip (principal) | CPT/HCPCS: 93010 ==

== ENCOUNTER 2024-04-18 13:59 | Inpatient (IN) | payer MEDICARE, MEDICAID, SELFPAY ==
[2024-04-18] VITALS (10 sets, daily range): BP systolic 103–128; BP diastolic 40–66; PULSE 66–110; RESP 16–20; TEMP 36.2–38.5; O2SAT 88–100; BMI 33.2
--- NOTE | ~2024-04-18 | XR_ITS ---
EXAMINATION: XR CHEST CLINICAL INFORMATION: Fever. COMPARISON: August 02, 2023 TECHNIQUE: 2 views of the chest were obtained. FINDINGS: Low lung volumes. Similar pulmonary vascular redistribution. No focal airspace consolidation. Cardiac mediastinal contours unchanged. No significant pleural effusion. Stable elevation of the right hemidiaphragm. Prior median sternotomy. XR/XR chest 2V IMPRESSION: Low lung volumes. No acute abnormality. Electronically signed by: Frederick Osorio MD 04/18/2024 04:12 PM EDT
--- NOTE | 2024-04-18 14:19 | ECG_ITS ---
Test Reason : TACHY Blood Pressure : / mmHG Vent. Rate : 103 BPM Atrial Rate : 103 BPM P-R Int : 154 ms QRS Dur : 070 ms QT Int : 346 ms P-R-T Axes : 069 030 020 degrees QTc Int : 453 ms Sinus tachycardia Nonspecific T wave abnormality Abnormal ECG When compared with ECG of 03-NOV-2023 09:51, No significant change was found Referred By: Manda Broderick Electronically Signed By:JCARLOS LEOS
--- NOTE | 2024-04-18 14:27 | PC.NURSE ---
rowena Walsh, envoked HCP can be reached at [phone]. Pt is in independend living with 24/7 [employer] [facility].
--- NOTE | 2024-04-18 14:40 | ED_ITS ---
HPI - General Adult General Chief complaint: Fever Stated complaint: TACHY/FEVER/NON AMBULATORY Time Seen by Provider: 04/18/24 14:19 Source: EMS and RN notes reviewed Mode of arrival: EMS Limitations: altered mental status and physical limitation History of Present Illness ED Provider: mary HPI narrative: Patient is a 78-year-old female with history of hypertension, hyperlipidemia, TIA, previous stroke, diabetes, CHF, COPD, obesity presenting to the ED from SNF for tachycardia, hot to touch. Patient nonverbal and not oriented at baseline, unable to report history/complaints. Baseline L sided deficits. MD complaint: fever, tachycardia Onset (ago): unknown Treatments prior to arrival: none Related Data Home Medications ?Medication ?Instructions ?Recorded ?Confirmed acetaminophen 500 mg tablet 500 mg PO BID 08/02/23 09/10/23 albuterol sulfate 2.5 mg/3 mL 2.5 mg inhalation Q6H PRN 08/02/23 09/10/23 (0.083 %) solution for nebulization Shortness Of Breath Or Wheezing aspirin 81 mg tablet,delayed 81 mg PO QAM 08/02/23 09/10/23 release atorvastatin 80 mg tablet 80 mg PO QPM 08/02/23 09/10/23 cholecalciferol (vitamin D3) 25 25 mcg PO DAILY 08/02/23 09/10/23 mcg (1,000 unit) tablet clopidogrel 75 mg tablet 75 mg PO QAM 08/02/23 09/10/23 cyanocobalamin (vitamin B-12) 500 500 mcg PO QAM 08/02/23 09/10/23 mcg tablet fluoxetine 20 mg capsule 20 mg PO QAM 08/02/23 09/10/23 folic acid 400 mcg tablet 0.4 mg PO QAM 08/02/23 09/10/23 furosemide 20 mg tablet 20 mg PO BID@0900,1700 08/02/23 09/10/23 glipizide 5 mg tablet, extended 5 mg PO QAM 08/02/23 09/10/23 release 24 hr metoprolol succinate 25 mg 25 mg PO DAILY 08/02/23 09/10/23 tablet,extended release 24 hr oxybutynin chloride 5 mg 5 mg PO QAM 08/02/23 09/10/23 tablet,extended release 24 hr pregabalin 150 mg capsule 150 mg PO TID 08/02/23 09/10/23 trazodone 100 mg tablet 100 mg PO BEDTIME 08/02/23 09/10/23 zinc oxide 20 % topical ointment 1 appl topical DAILY PRN Wound 08/02/23 09/10/23 Healing fluticasone propionate 220 1 puff inhalation BID 09/10/23 09/10/23 mcg/actuation HFA aerosol inhaler levetiracetam 250 mg tablet 250 mg PO BID 09/10/23 09/10/23 (Keppra) loperamide 2 mg capsule 2 mg PO Q4H PRN Diarrhea 09/10/23 09/10/23 nystatin 100,000 unit/gram topical 1 appl topical BID 09/10/23 09/10/23 cream triamcinolone acetonide 0.1 % 1 appl topical BID 09/10/23 09/10/23 topical ointment Previous Rx's ?Medication ?Instructions ?Recorded cefuroxime axetil 500 mg tablet 500 mg PO BID #14 tabs 11/03/23 doxycycline hyclate 100 mg capsule 100 mg PO BID 10 days #20 caps 11/03/23 Allergies Allergy/AdvReac Type Severity Reaction Status Date / Time Penicillins Allergy Unknown Verified 04/18/24 14:17 piroxicam Allergy Unknown Verified 04/18/24 14:17 shrimp Allergy Hives Verified 04/18/24 14:17 Sulfa (Sulfonamide Allergy Unknown Verified 04/18/24 14:17 Antibiotics) Review of Systems 2 Review of Systems: As per HPI. Yes all other systems are reviewed and are negative Constitutional: Constitutional: Reports as per HPI [facility] Past Medical History Medical History (Updated 04/18/24 @ 16:03 by Manda Broderick NP) COPD (chronic obstructive pulmonary disease) Non-insulin dependent type 2 diabetes mellitus Peripheral neuropathy HLD (hyperlipidemia) CVA (cerebral vascular accident) Heart failure, unspecified Social History Social History Household Members: Unknown / Unable to assess Housing: Assisted Living Facility Do you presently have visiting nurse or other home services: Yes Unable to assess alcohol history related to: Unknown Alcohol intake: former Patient Tobacco Use Status: Never used Tobacco Smoked in Last 30 Days: No Use of substances other than those prescribed or required for medical reasons: No Advance Directives: Yes Advance Directives on File: Yes Advance Directives Date on File: 09/15/23 service: No Physical Exam ED Vital Signs: Vital Signs - 24 hr 04/18/24 14:12 04/18/24 15:50 04/18/24 16:27 Temperature 101.3 F H 98.8 F 97.7 F Pulse Rate 104 H 88 83 Respiratory Rate 20 19 18 Blood Pressure 112/50 L 117/53 L 118/64 Pulse Oximetry 96 95 95 Oxygen Delivery Method Nasal Cannula Aerosol Mask Nasal Cannula Oxygen Flow Rate 2 2 BMI result Body Mass Index 33.2 Vital signs have been reviewed and appear to be correct. Blood pressure low. Heart rate mildly tachycardic. Respiratory rate normal. Temperature febrile. Oxygen saturation normal. Const General: no acute distress, alert and awake Limitations: altered mental status and physical limitations HENMT Head: Yes normocephalic and Yes atraumatic Ears: external ears normal General nose exam: Normal external nose present Mouth: oropharynx normal and moist mucous membranes Throat: Yes uvula midline Neck Neck: Yes normal visual inspection and Yes supple Resp Effort & Inspection: normal respiratory effort Auscultation: clear to auscultation bilaterally Cardio Rhythm: regular rhythm Heart sounds: S1 normal heart sound present and S2 normal heart sound present GI Palpation (GI): Soft to palpation and nontender Auscultation: normoactive bowel sounds General: Yes no CVA tenderness Back/Spine/Pelvis Back: no CVA tenderness Skin General skin exam: elasticity normal and turgor normal Extrem General: Yes no pedal edema and Yes no calf tenderness Medications Administered Discontinued Medications Generic Name Dose Route Start Last Admin Trade Name Melitonq PRN Reason Stop Dose Admin Acetaminophen 650 mg 04/18/24 14:40 04/18/24 15:14 Acetaminophen Supp 650 Mg Supp.Rect IN 04/18/24 14:41 650 mg ONCE ONE Administration Ceftriaxone Sodium 1 gm/ 50 mls @ 100 mls/hr 04/18/24 15:34 04/18/24 15:45 Sodium Chloride IV 04/18/24 16:03 100 mls/hr ONCE ONE Administration Medical Decision Making Medical Decision Making [facility] Narrative: Patient is a 78-year-old female with history of hypertension, hyperlipidemia, TIA, previous stroke, diabetes, CHF, COPD, obesity presenting to the ED from SNF for tachycardia, hot to touch. On exam patient is awake, alert, not oriented, nonverbal at baseline, febrile, slightly tachycardic, BP low, physical exam findings as above. Given reported symptoms and physical exam findings, initial differential includes sepsis, UTI, pneumonia, viral illness, Covid, flu. Labs notable for left shift without leukocytosis, mild anemia not at transfusable level, elevated creatinine, slightly elevated troponin, will obtain repeat. Urinalysis notable for 3+ leukocytes, 1+ blood, greater than 50 wbc's, 4+ bacteria, ceftriaxone ordered. Chest x-ray is without evidence of pneumonia. My interpretation is in agreement with radiologist's interpretation. Patient admitted to Medicine, accepted by Dr. Davis, for sepsis. Differential Diagnosis Differential Diagnoses: The differential diagnosis associated with the presentation includes As per MDM. Admission/Observation Consideration of admission/observation: Escalation of care including admission/observation considered Consult Healthcare Provider Management of the patient was discussed with: Hospitalist Lab Data [facility] Lab Attestation statement: I reviewed the patient's lab results. As per MDM. 04/18/24 14:33 04/18/24 14:33 Labs: Lab Results 04/18/24 04/18/24 04/18/24 Range/Units 14:32 14:33 14:47 WBC 8.3 (4.8-10.8) X10*3/uL RBC 3.86 L (4.20-5.50) X10*6/uL Hgb 10.0 L (12.0-16.0) g/dl Hct 32.1 L (37.0-47.0) % MCV 83.2 (80.0-98.0) fL MCH 25.9 L (27.0-33.0) pg MCHC 31.2 (31.0-35.0) g/dl RDW 18.3 H (11.0-16.0) % Plt Count 211 D (160-400) X10*3/uL MPV 10.5 (9.4-12.3) fL Immature Gran % (Auto) 0.5 H (0.0-0.4) % Neut % (Auto) 74.5 H (45-73) % Lymph % (Auto) 16.2 L (20-40) % Ross % (Auto) 7.4 (2-11) % Eos % (Auto) 1.0 (0-4) % Baso % (Auto) 0.4 (0-2) % Lymph # (Auto) 1.4 (1.2-4.9) X10*3/uL Ross # (Auto) 0.6 (0.1-1.2) X10*3/uL Eos # (Auto) 0.1 (0.0-0.4) X10*3/uL Baso # (Auto) 0.0 (0.0-0.2) X10*3/uL Abs Immat Gran (auto) 0.04 H (0.00-0.03) X10*3/uL Absolute Neuts (auto) 6.2 (2.0-8.3) x10*3/uL Absolute Nucleated RBC 0.000 (0.0-0.012) X10*3/uL Nucleated RBC % (auto) 0.0 (0.0-0.2) /100WBC Smear Tech's Comments VERIFIED Sodium 144 (135-145) mmol/L Potassium 4.3 (3.3-5.1) mmol/L Chloride 101 (96-108) mmol/L Carbon Dioxide 36 H (22-29) mmol/L Anion Gap 11 L (12-20) BUN 15 (9-16) mg/dL Creatinine 1.53 H (0.5-1.4) mg/dL Estim Creat Clear Calc 30.1 Estimated GFR 33 Random Glucose 196 H (60-115) mg/dL Lactic Acid 1.2 (0.5-2.0) mmol/L Calcium 9.1 (8.4-10.2) mg/dL Magnesium 1.7 (1.6-2.6) mg/dL Total Bilirubin 0.3 (0.0-1.0) mg/dL AST 19 (5-31) U/L ALT 12 (0-31) U/L Alkaline Phosphatase 71 (39-117) U/L Troponin I High Sens 10.1 D (<3.5-17.0) ng/L Total Protein 7.7 (6.5-8.0) g/dL Albumin 3.5 (3.5-5.0) g/dL Urine Color Yellow Urine Appearance Turbid Urine pH 5.5 (5.0-9.0) Ur Specific [place] 1.010 (1.005-1.025) Urine Protein Trace (Neg-Trace) mg/dL Urine Glucose (UA) Negative (Negative) mg/dL Urine Ketones Negative (Negative) mg/dL Urine Blood Small (1+) H (Negative) Urine Nitrite Negative (Negative) Ur Leukocyte Esterase Large (3+) H (Negative) Urine RBC 3-5 H (0-2) /HPF Urine WBC >50 H (0-5) /HPF Ur Squamous Epith Cells 3-5 (0-2) /HPF Urine Bacteria 4+ (None Seen) Hyaline Casts 0-2 (0-2) /LPF Influenza Type A (PCR) NEGATIVE (Negative) Influenza Type B (PCR) NEGATIVE (Negative) RSV RNA Qual (PCR) NEGATIVE (Negative) SARS-CoV-2 RNA (RT-PCR) NEGATIVE (Negative) Independent Interpretation I performed an independent interpretation of an: EKG (sinus tachycardia, rate 103bpm, normal IN interval, no significant change from prior) and Plain X-Ray Interpretation: No evidence of pneumonia on chest x-ray Radiology Impression Discussion of test interpretation with radiology: I have reviewed the radiologist's reading. Radiologist Impression: XR/XR chest 2V IMPRESSION: Low lung volumes. No acute abnormality. External Record Review External record reviewed: Inpatient record, Office record and Outpatient record Prescription Management I considered prescription management with: Antibiotic Critical Care Time Critical Care Time Critical Care Time: Yes Total Critical Care Time: 39 Attestation: I have personally provided critical care time exclusive of time spent on separately billable procedures. Time includes review of lab data, radiology results, discussion with consultants, and monitoring for potential decompensation. Intervention performed as documented. Discharge Plan Discharge Clinical Impression: Urinary tract infection, Sepsis Patient Disposition: Admitted As Inpatient Print Language: Barbadian
[2024-04-18 14:50] LABS: Basophils Percent Auto 0.4 % (0-2); Eosinophils Absolute Auto 0.1 X10*3/uL (0.0-0.4); Hematocrit 32.1 % (37.0-47.0); Imm Gran Abs Auto 0.04 X10*3/uL (0.00-0.03); Imm Gran Pct Auto 0.5 % (0.0-0.4); Lymphocytes Absolute Auto 1.4 X10*3/uL (1.2-4.9); Lymphocytes Percent Auto 16.2 % (20-40); MANUAL DIFF FLAG SCAN; Mean Corpuscular HGB Conc 31.2 g/dl (31.0-35.0); Mean Corpuscular Hemoglobin 25.9 pg (27.0-33.0); Mean Corpuscular Volume 83.2 fL (80.0-98.0); Monocytes Absolute Auto 0.6 X10*3/uL (0.1-1.2); Monocytes Percent Auto 7.4 % (2-11); Neutrophils Absolute Auto 6.2 x10*3/uL (2.0-8.3); Neutrophils Percent Auto 74.5 % (45-73); PLT CLUMP 1; Red Blood Count 3.86 X10*6/uL (4.20-5.50); Red Cell Distribution Width 18.3 % (11.0-16.0); SCAN SMEAR FLAG 1
[2024-04-18 14:51] LABS: White Blood Count 8.3 X10*3/uL (4.8-10.8)
[2024-04-18 14:58] LABS: Appearance Urine Turbid; Color Urine Yellow; Glucose Urine UA Negative (Negative); Leukocyte Esterase Urine Large (3+) (Negative); Nitrite Urine Negative (Negative); PH 5.5 (5.0-9.0); UMIC TRIGGER UACC YES; Urine Blood Small (1+) (Negative); Urine Ketones Negative (Negative); Urine Protein Trace mg/dL (Neg-Trace)
[2024-04-18 15:03] LABS: Lactic Acid 1.2 mmol/L (0.5-2.0)
[2024-04-18 15:08] LABS: Bacteria Urine 4+ (None Seen); Hyaline Casts Urine 0-2 /LPF (0-2); UACC Culture Trigger YES; WBC Urine >50 /HPF (0-5)
[2024-04-18] MEDS: Acetaminophen Supp 650 MG SUPP.RECT PR (15:14)
[2024-04-18 15:16] LABS: Troponin-I High Sensitivity 10.1 ng/L (<3.5-17.0)
[2024-04-18 15:20] LABS: Mean Platelet Volume 10.5 fL (9.4-12.3); Platelet Count 211 X10*3/uL (160-400)
[2024-04-18 15:21] LABS: Alanine Aminotransferase 12 U/L (0-31); Albumin Level 3.5 g/dL (3.5-5.0); Alkaline Phosphatase 71 U/L (39-117); Anion Gap 11 (12-20); Aspartate Amino Transferase 19 U/L (5-31); Bilirubin Total 0.3 mg/dL (0.0-1.0); Blood Urea Nitrogen 15 mg/dL (9-16); Calcium 9.1 mg/dL (8.4-10.2); Carbon Dioxide 36 mmol/L (22-29); Chloride 101 mmol/L (96-108); Creatinine Clr Calc Pharmacy 30.1; Estimated Glomerular Filt Rate 33; Glucose Random 196 mg/dL (60-115); Magnesium 1.7 mg/dL (1.6-2.6); Potassium 4.3 mmol/L (3.3-5.1); SLIDE REVIEW VERIFIED; Sodium 144 mmol/L (135-145); Total Protein 7.7 g/dL (6.5-8.0)
[2024-04-18 15:24] LABS: Influenza A PCR NEGATIVE (Negative); Influenza B PCR NEGATIVE (Negative); Resp Syncy Virus RNA Qual PCR NEGATIVE (Negative); SARS COV2 PCR INHOUSE NEGATIVE (Negative)
[2024-04-18] MEDS: cefTRIAXone sodium 1 GM in 0.9 % Sodium Chloride 50 ML IV (15:45)
--- NOTE | 2024-04-18 16:29 | MHC.EDTECH ---
safety coordinator Shea Wakefield called and left number for updates- [phone]
--- NOTE | 2024-04-18 16:52 | P.HPHOSP_ITS ---
History of Present Illness Date of Service: 04/18/24 Chief Complaint: fever 78yo F resident of [facility] residential with 13/02 care, nonambulatory/dependent on Trevor lift for transfer, COPD on home O2, prior CVA with L-sided weakness, HTN, DM2, CHF, COPD, and obesity went in with tactile fever and fast heart rate. Patient minimally verbal and thus history is per ED and per the pt's caregiver at [facility]. In the ED, she was found to be febrile to 101.3 and tachycardic to 103. Creatinine elevated to 1.52 from a baseline of around 1. Lactate 1.2. Urinalysis showed pyuria and bacteruria. No infiltrate on CXR and influena/RSV/Covid-19 PCR all negative. She was given a dose of IV ceftriaxone. Review of Systems 2 Review of Systems: Yes Unobtainable due to mental status [facility] Medical History COPD (chronic obstructive pulmonary disease) Non-insulin dependent type 2 diabetes mellitus Peripheral neuropathy HLD (hyperlipidemia) CVA (cerebral vascular accident) Heart failure, unspecified Social History Household Members: Unknown / Unable to assess Housing: Assisted Living Facility Do you presently have visiting nurse or other home services: Yes Unable to assess alcohol history related to: Unknown Alcohol intake: former Patient Tobacco Use Status: Never used Tobacco Smoked in Last 30 Days: No Use of substances other than those prescribed or required for medical reasons: No Advance Directives: Yes Advance Directives on File: Yes Advance Directives Date on File: 09/15/23 service: No Meds Allergies Allergy/AdvReac Type Severity Reaction Status Date / Time Penicillins Allergy Unknown Verified 04/18/24 14:17 piroxicam Allergy Unknown Verified 04/18/24 14:17 shrimp Allergy Hives Verified 04/18/24 14:17 Sulfa (Sulfonamide Allergy Unknown Verified 04/18/24 14:17 Antibiotics) Active Medications: Current Medications Acetaminophen (Acetaminophen 325 Mg Tablet) 650 mg PO Q6H PRN PRN Reason: Pain, Mild (Pain Scale 1-3), fever or headache Calcium Carbonate (Calcium Carbonate 750 Mg Tab.Chew) 750 mg PO Q4H PRN PRN Reason: Heartburn Enoxaparin Sodium (Enoxaparin Sodium 30 Mg/0.3 Ml Syringe) 30 mg SUBCUT Q24H [facility] Glucose (Glucose Gel 15 Gm Gel..Gram.) 15 gm PO Q15M PRN; Protocol PRN Reason: per Hypoglycemia Standing Ord. Sodium Chloride (Ns) 1,000 mls @ 125 mls/hr IVCONT .Q8H [facility] Ceftriaxone Sodium 1 gm/ (Sodium Chloride) 50 mls @ 100 mls/hr IV Q24H [facility] Dextrose (D10) 250 mls @ 750 mls/hr IV Q15M PRN; Protocol PRN Reason: per Hypoglycemia Standing Ord. Insulin Human Lispro (Insulin Lispro 100 Unit/Ml 3 Ml Vial) 0 unit SUBCUT QIDACHS [facility]; Protocol Magnesium Hydroxide (Milk Of Magnesia 30 Ml Oral.Susp) 30 ml PO DAILY PRN PRN Reason: Constipation Melatonin (Melatonin 3 Mg Tablet) 6 mg PO BEDTIME PRN PRN Reason: Insomnia Ondansetron HCl (Ondansetron Hcl 4 Mg/2 Ml Vial) 4 mg IVPUSH Q8H PRN PRN Reason: Nausea and Vomiting Sodium Chloride (0.9 % Sodium Chloride Flush 3 Ml Syringe) 3 ml IVFLUSH QSHIFT [facility] Home Medications ?Medication ?Instructions ?Recorded ?Confirmed ?Last Taken ?Type acetaminophen 500 mg tablet 500 mg PO BID 08/02/23 09/10/23 Unknown History albuterol sulfate 2.5 mg/3 mL 2.5 mg inhalation Q6H PRN 08/02/23 09/10/23 Unknown History (0.083 %) solution for nebulization Shortness Of Breath Or Wheezing aspirin 81 mg tablet,delayed 81 mg PO QAM 08/02/23 09/10/23 Unknown History release atorvastatin 80 mg tablet 80 mg PO QPM 08/02/23 09/10/23 Unknown History cholecalciferol (vitamin D3) 25 25 mcg PO DAILY 08/02/23 09/10/23 Unknown History mcg (1,000 unit) tablet clopidogrel 75 mg tablet 75 mg PO QAM 08/02/23 09/10/23 Unknown History cyanocobalamin (vitamin B-12) 500 500 mcg PO QAM 08/02/23 09/10/23 Unknown History mcg tablet fluoxetine 20 mg capsule 20 mg PO QAM 08/02/23 09/10/23 Unknown History folic acid 400 mcg tablet 0.4 mg PO QAM 08/02/23 09/10/23 Unknown History furosemide 20 mg tablet 20 mg PO BID@0900,1700 08/02/23 09/10/23 Unknown History glipizide 5 mg tablet, extended 5 mg PO QAM 08/02/23 09/10/23 Unknown History release 24 hr metoprolol succinate 25 mg 25 mg PO DAILY 08/02/23 09/10/23 Unknown History tablet,extended release 24 hr oxybutynin chloride 5 mg 5 mg PO QAM 08/02/23 09/10/23 Unknown History tablet,extended release 24 hr pregabalin 150 mg capsule 150 mg PO TID 08/02/23 09/10/23 Unknown History trazodone 100 mg tablet 100 mg PO BEDTIME 08/02/23 09/10/23 Unknown History zinc oxide 20 % topical ointment 1 appl topical DAILY PRN Wound 08/02/23 09/10/23 Unknown History Healing fluticasone propionate 220 1 puff inhalation BID 09/10/23 09/10/23 Unknown History mcg/actuation HFA aerosol inhaler levetiracetam 250 mg tablet 250 mg PO BID 09/10/23 09/10/23 Unknown History (Tata) loperamide 2 mg capsule 2 mg PO Q4H PRN Diarrhea 09/10/23 09/10/23 Unknown History nystatin 100,000 unit/gram topical 1 appl topical BID 09/10/23 09/10/23 Unknown History cream triamcinolone acetonide 0.1 % 1 appl topical BID 09/10/23 09/10/23 Unknown History topical ointment Physical Exam 2 Vital Signs and Narrative: Vital Signs: Last Vital Signs Temp 97.7 F 04/18/24 16:46 Pulse 83 04/18/24 16:27 Resp 18 04/18/24 16:27 BP 118/64 04/18/24 16:27 Pulse Ox 95 04/18/24 16:27 O2 Del Method Nasal Cannula 04/18/24 16:27 O2 Flow Rate 2 04/18/24 16:27 Oxygen Flow Rate 4 04/18/24 14:12 BMI result Body Mass Index 33.2 Gen: in no acute distress HEENT: sclera anicteric, moist mucus membranes Neck: supple Lungs: clear to auscultation bilaterally Heart: regular rate and rhythm, no murmurs Abd: soft, non-tender, non-distended Ext: no edema Skin: warm/well-perfused Neuro: alert, chronic facial droop and L-sided weakness Psych: impaired insight Results Labs 04/18/24 14:33 04/18/24 14:33 Labs: Laboratory Results - last 24 hr 04/18/24 04/18/24 04/18/24 14:32 14:33 14:47 MCV 83.2 MCH 25.9 L MCHC 31.2 RDW 18.3 H Plt Count 211 D MPV 10.5 Immature Gran % (Auto) 0.5 H Neut % (Auto) 74.5 H Lymph % (Auto) 16.2 L [place] % (Auto) 7.4 Eos % (Auto) 1.0 Baso % (Auto) 0.4 Lymph # (Auto) 1.4 [place] # (Auto) 0.6 Eos # (Auto) 0.1 Baso # (Auto) 0.0 Abs Immat Gran (auto) 0.04 H Absolute Neuts (auto) 6.2 Absolute Nucleated RBC 0.000 Nucleated RBC % (auto) 0.0 Smear Tech's Comments VERIFIED Anion Gap 11 L Estim Creat Clear Calc 30.1 Estimated GFR 33 Random Glucose 196 H Lactic Acid 1.2 Calcium 9.1 Magnesium 1.7 Total Bilirubin 0.3 AST 19 ALT 12 Alkaline Phosphatase 71 Troponin I High Sens 10.1 D Total Protein 7.7 Albumin 3.5 Urine Color Yellow Urine Appearance Turbid Urine pH 5.5 Ur Specific [place] 1.010 Urine Protein Trace Urine Glucose (UA) Negative Urine Ketones Negative Urine Blood Small (1+) H Urine Nitrite Negative Ur Leukocyte Esterase Large (3+) H Urine RBC 3-5 H Urine WBC >50 H Ur Squamous Epith Cells 3-5 Urine Bacteria 4+ Hyaline Casts 0-2 Influenza Type A (PCR) NEGATIVE Influenza Type B (PCR) NEGATIVE RSV RNA Qual (PCR) NEGATIVE SARS-CoV-2 RNA (RT-PCR) NEGATIVE Imaging Radiologist's Impressions: Impressions Chest X-Ray 04/18/24 14:20 IMPRESSION: Low lung volumes. No acute abnormality. Electronically signed by: Frederick Osorio MD 04/18/2024 04:12 PM EDT Assessment and Plan (1) Urinary tract infection: Status: Acute Plan 78yo F resident of [facility] with COPD2 on home O2, prior CVA with L-sided weakness, HTN, DM2, CHF, COPD, obesity presenting with fever + tachycardia and found to be septic from UTI sepsis due to UTI - admit to telemetry, give ceftriaxone, follow BCx/UCx - not severe sepsis KIRAN - appears to be prerenal; hold diuretic; give IV normal saline; recheck BMP in AM; avoid nephrotoxins COPD with chronic hypoxic resp failure - on home O2; appears to retain CO2 so goal SaO2 no greater than 92%; prn albuterol nebs HTN- metoprolol succinate prior CVA - ASA + clopidogrel + atorvastatin DM2 - shae-dose lispro mood disorder - trazodone + fluoxetine VTE prophylaxis - enoxaparin dispo - eventual return to [facility] code status - full per HCP/caregiver Mariely but she will clarify tomorrow I anticipate that the patient will stay at least 2 midnights as an inpatient in the hospital due to the above reasons. It is neither reasonable nor safe to care for them in a less acute setting. Quality Stroke Does the patient have a stroke diagnosis?: No VTE Prior VTE?: No VTE Risk Level:: Medical - moderate - high VTE Device Contraindication: N/A - Device Ordered VTE Drug Contraindication: N/A - Med Ordered
[2024-04-18] MEDS: 0.9 % Sodium Chloride 1,000 ML 125 ML IVCONT (17:49)
[2024-04-18] MEDS: Enoxaparin Sodium 30 MG/0.3 ML SYRINGE SUBCUT (18:12)
--- NOTE | 2024-04-18 19:14 | PHA.MEDREC ---
Pharmacy Consult ? Medication Reconciliation Pharmacy has completed the medication reconciliation. Spoke to HCP Mariely and nurse Sharon over the phone and confirmed medication list. They verified pt is still using Flovent 220 mcg inhaler.
--- NOTE | 2024-04-18 19:40 | MHC.EDTECH ---
This tech took over care of patient at 1900,rounds and vitals completed,rectal temp taken,patient was placed on a pure wick to keep patient clean and dry,pt tolerated well,repositioned pt to comfort,call coe in reach
--- NOTE | 2024-04-18 19:50 | PC.NURSE ---
Pt was on 2L nasal cannula ad her O2 was dropping to 88%. We increased her up to 3L nasal cannula and she is sustaining 94% O2
[2024-04-18 19:52] LABS: Troponin-I High Sensitivity 17.9 ng/L (<3.5-17.0)
[2024-04-18 21:06] LABS: Glucose, Whole Blood 103 mg/dL (60-115)
--- NOTE | 2024-04-18 21:15 | MHC.EDTECH ---
POC taken and is 103,Harika RN made aware
--- NOTE | 2024-04-18 21:46 | MHC.EDTECH ---
Hourly rounds and vitals completed,patient repositioned to comfort,call coe in reach
--- NOTE | 2024-04-18 23:55 | MHC.EDTECH ---
Hourly rounds and vitals completed,patient repositioned to comfort,emptied 250MMLS of urine from suction canister,patient is clean and dry,call coe in reach
[2024-04-19] VITALS (9 sets, daily range): BP systolic 109–149; BP diastolic 44–65; PULSE 61–79; RESP 16–20; TEMP 36–37.1; O2SAT 93–98; BMI 33.2
--- NOTE | 2024-04-19 01:53 | MHC.EDTECH ---
Hourly rounds and vitals completed,patient repositioned to comfort,pt is clean and dry,call coe in reach
[2024-04-19] MEDS: 0.9 % Sodium Chloride 1,000 ML 125 ML IVCONT ×2 (02:14→08:46)
[2024-04-19 04:33] LABS: Hematocrit 31.6 % (37.0-47.0); Hemoglobin 9.6 g/dl (12.0-16.0); Mean Corpuscular HGB Conc 30.4 g/dl (31.0-35.0); Mean Corpuscular Hemoglobin 25.7 pg (27.0-33.0); Mean Corpuscular Volume 84.5 fL (80.0-98.0); Mean Platelet Volume 9.5 fL (9.4-12.3); Platelet Count 182 X10*3/uL (160-400); Red Blood Count 3.74 X10*6/uL (4.20-5.50); Red Cell Distribution Width 17.9 % (11.0-16.0); White Blood Count 7.5 X10*3/uL (4.8-10.8)
--- NOTE | 2024-04-19 04:37 | MHC.EDTECH ---
Patient was repositioned,pillow placed under right side,patient is clean and dry,vitals taken,call coe in reach
[2024-04-19 04:48] LABS: Anion Gap 9 (12-20); Blood Urea Nitrogen 15 mg/dL (9-16); Calcium 8.8 mg/dL (8.4-10.2); Carbon Dioxide 38 mmol/L (22-29); Chloride 105 mmol/L (96-108); Creatinine Clr Calc Pharmacy 37.1; Estimated Glomerular Filt Rate 42; Glucose Random 148 mg/dL (60-115); Potassium 4.3 mmol/L (3.3-5.1); Sodium 148 mmol/L (135-145)
--- NOTE | 2024-04-19 04:54 | MHC.EDTECH ---
Patient drank two cups of diet alka padmini,without difficulty
--- NOTE | 2024-04-19 06:08 | MHC.EDTECH ---
Emptied 250MLS of urine from canister,(cloudy with sediment),patient is clean and dry,vitals taken,call coe in reach
[2024-04-19 07:16] LABS: Glucose, Whole Blood 120 mg/dL (60-115)
[2024-04-19] MEDS: Fluticasone Propionate 250 MCG BLST.W.DEV 1 PUFF INHALE ×2 (08:06→19:34)
--- NOTE | 2024-04-19 08:43 | PC.NURSE ---
called pharmacy for meds not available in pyxis
[2024-04-19] MEDS: Clopidogrel Bisulfate 75 MG TABLET PO (08:45)
[2024-04-19] MEDS: Aspirin Enteric Coated 81 MG TABLET.DR PO (08:45)
[2024-04-19] MEDS: Furosemide 20 MG TABLET PO (08:45)
[2024-04-19] MEDS: oxyBUTYnin chloride ER 5 MG TAB.ER.24 PO (08:45)
[2024-04-19] MEDS: Pregabalin 150 MG CAPSULE PO ×3 (08:46→20:57)
[2024-04-19] MEDS: Cholecalciferol (Vitamin D3) 25 MCG TABLET PO (08:46)
[2024-04-19] MEDS: FLUoxetine HCl 20 MG CAPSULE PO (08:46)
[2024-04-19] MEDS: levETIRAcetam 250 MG TABLET PO ×2 (08:46→20:57)
[2024-04-19] MEDS: Metoprolol Succinate ER 25 MG TAB.ER.24H PO (08:46)
[2024-04-19] MEDS: Cyanocobalamin (Vitamin B-12) 500 MCG TABLET PO (08:48)
[2024-04-19] MEDS: methIMAzole 5 MG TABLET 2.5 MG PO (08:48)
--- NOTE | 2024-04-19 09:08 | HO.SKINPHOTO ---
Location: coccyx Category: Stage: Length: Width: Depth: cm Location: Category: Stage: Length: Width: Depth: cm Location: Category: Stage: Length: Width: Depth: cm Location: Category: Stage: Length: Width: Depth: cm Location: Category: Stage: Length: Width: Depth: cm Location: Category: Stage: Length: Width: Depth: cm
--- NOTE | 2024-04-19 09:09 | PC.NURSE ---
skin break down noted to pts coccyx, alvyn foam dressing applied to area with most breakdown and barrier cream applied surrounding.
--- NOTE | 2024-04-19 09:56 | HO.PM.IMPN ---
Subjective Subjective Date of Service: 04/19/24 Interval History: more awake + alert afebrile no abd pain or flank pain no dysuria or hematuria Review of Systems Review of Systems: Yes all other systems are reviewed and are negative Physical Exam Vital Signs: Vital Signs: Last Vital Signs Temp 98.7 F 04/19/24 06:07 Pulse 68 04/19/24 08:46 Resp 20 04/19/24 08:46 BP 120/49 L 04/19/24 08:46 Pulse Ox 98 04/19/24 08:46 O2 Del Method Nasal Cannula 04/19/24 08:46 O2 Flow Rate 2 04/19/24 08:46 Oxygen Flow Rate 4 04/18/24 14:12 BMI result Body Mass Index 33.2 Gen: in no acute distress HEENT: sclera anicteric, moist mucus membranes Neck: supple Lungs: clear to auscultation bilaterally Heart: regular rate and rhythm, no murmurs Abd: soft, non-tender, non-distended Ext: no edema Skin: warm/well-perfused Neuro: alert, chronic facial droop and L-sided weakness Psych: impaired insight Objective Data Active Medications Acetaminophen (Acetaminophen 325 Mg Tablet) 650 mg PO Q6H PRN PRN Reason: Pain, Mild (Pain Scale 1-3), fever or headache Albuterol Sulfate (Albuterol Sulfate (0.083%) 2.5 Mg/3 Ml Vial.Neb) 2.5 mg INHALE RQ6H PRN PRN Reason: Shortness Of Breath Or Wheezing Aspirin (Aspirin Enteric Coated 81 Mg Tablet.) 81 mg PO DAILY [facility] Last Admin: 04/19/24 08:45 Dose: 81 mg Documented By: MICHAEL Atorvastatin Calcium (Atorvastatin Calcium 80 Mg Tablet) 80 mg PO BEDTIME [facility] Calcium Carbonate (Calcium Carbonate 750 Mg Tab.Chew) 750 mg PO Q4H PRN PRN Reason: Heartburn Clopidogrel Bisulfate (Clopidogrel Bisulfate 75 Mg Tablet) 75 mg PO DAILY [facility] Last Admin: 04/19/24 08:45 Dose: 75 mg Documented By: MICHAEL Cyanocobalamin (Cyanocobalamin (Vitamin B-12) 500 Mcg Tablet) 500 mcg PO DAILY [facility] Last Admin: 04/19/24 08:48 Dose: 500 mcg Documented By: MICHAEL Enoxaparin Sodium (Enoxaparin Sodium 30 Mg/0.3 Ml Syringe) 30 mg SUBCUT Q24H [facility] Last Admin: 04/18/24 18:12 Dose: 30 mg Documented By: ZARIA Fluoxetine HCl (Fluoxetine Hcl 20 Mg Capsule) 20 mg PO DAILY [facility] Last Admin: 04/19/24 08:46 Dose: 20 mg Documented By: MICHAEL Fluticasone Propionate (Fluticasone Propionate 250 Mcg Blst.W.Dev) 1 puff INHALE RBID [facility] Last Admin: 04/19/24 08:06 Dose: 1 puff Documented By: GABRIELLE Furosemide (Furosemide 20 Mg Tablet) 20 mg PO BID@0900,1700 [facility]; Protocol Last Admin: 04/19/24 08:45 Dose: 20 mg Documented By: MICHAEL Glucose (Glucose Gel 15 Gm Gel..Gram.) 15 gm PO Q15M PRN; Protocol PRN Reason: per Hypoglycemia Standing Ord. Sodium Chloride (Ns) 1,000 mls @ 125 mls/hr IVCONT .Q8H [facility] Last Admin: 04/19/24 08:46 Dose: 125 mls/hr Documented By: MICHAEL Ceftriaxone Sodium 1 gm/ (Sodium Chloride) 50 mls @ 100 mls/hr IV Q24H [facility] Dextrose (D10) 250 mls @ 750 mls/hr IV Q15M PRN; Protocol PRN Reason: per Hypoglycemia Standing Ord. Insulin Human Lispro (Insulin Lispro 100 Unit/Ml 3 Ml Vial) 0 unit SUBCUT QIDACHS [facility]; Protocol Last Admin: 04/19/24 07:19 Dose: Not Given Documented By: MICHAEL Non-Admin Reason: No Insulin Coverage Levetiracetam (Levetiracetam 250 Mg Tablet) 250 mg PO BID [facility] Last Admin: 04/19/24 08:46 Dose: 250 mg Documented By: MICHAEL Loperamide HCl (Loperamide Hcl 2 Mg Capsule) 2 mg PO Q4H PRN PRN Reason: Diarrhea Magnesium Hydroxide (Milk Of Magnesia 30 Ml Oral.Susp) 30 ml PO DAILY PRN PRN Reason: Constipation Melatonin (Melatonin 3 Mg Tablet) 6 mg PO BEDTIME PRN PRN Reason: Insomnia Methimazole (Methimazole 5 Mg Tablet) 2.5 mg PO DAILY [facility] Last Admin: 04/19/24 08:48 Dose: 2.5 mg Documented By: MICHAEL Metoprolol Succinate (Metoprolol Succinate Er 25 Mg Tab.Er.24h) 25 mg PO DAILY [facility]; Protocol Last Admin: 04/19/24 08:46 Dose: 25 mg Documented By: MICHAEL Ondansetron HCl (Ondansetron Hcl 4 Mg/2 Ml Vial) 4 mg IVPUSH Q8H PRN PRN Reason: Nausea and Vomiting Oxybutynin Chloride (Oxybutynin Chloride Er 5 Mg Tab.Er.24) 5 mg PO DAILY [facility] Last Admin: 04/19/24 08:45 Dose: 5 mg Documented By: MICHAEL Pregabalin (Pregabalin 150 Mg Capsule) 150 mg PO TID [facility] Last Admin: 04/19/24 08:46 Dose: 150 mg Documented By: MICHAEL Sodium Chloride (0.9 % Sodium Chloride Flush 3 Ml Syringe) 3 ml IVFLUSH QSHIFT [facility] Last Admin: 04/19/24 08:46 Dose: Not Given Documented By: MICHAEL Non-Admin Reason: IV Running Trazodone HCl (Trazodone Hcl 100 Mg Tablet) 100 mg PO BEDTIME [facility] Vitamin D (Cholecalciferol (Vitamin D3) 25 Mcg Tablet) 25 mcg PO DAILY [facility] Last Admin: 04/19/24 08:46 Dose: 25 mcg Documented By: MICHAEL Labs 04/19/24 04:06 04/19/24 04:06 Labs: Laboratory Results - last 24 hr 04/18/24 04/18/24 04/18/24 14:32 14:33 14:47 MCV 83.2 MCH 25.9 L MCHC 31.2 RDW 18.3 H Plt Count 211 D MPV 10.5 Immature Gran % (Auto) 0.5 H Neut % (Auto) 74.5 H Lymph % (Auto) 16.2 L [place] % (Auto) 7.4 Eos % (Auto) 1.0 Baso % (Auto) 0.4 Lymph # (Auto) 1.4 [place] # (Auto) 0.6 Eos # (Auto) 0.1 Baso # (Auto) 0.0 Abs Immat Gran (auto) 0.04 H Absolute Neuts (auto) 6.2 Absolute Nucleated RBC 0.000 Nucleated RBC % (auto) 0.0 Smear Tech's Comments VERIFIED Hold Purple Top Anion Gap 11 L Estim Creat Clear Calc 30.1 Estimated GFR 33 POC Glucose Random Glucose 196 H Lactic Acid 1.2 Calcium 9.1 Magnesium 1.7 Total Bilirubin 0.3 AST 19 ALT 12 Alkaline Phosphatase 71 Troponin I High Sens 10.1 D C-Reactive Protein 6.10 H Total Protein 7.7 Albumin 3.5 Hold Yellow Top Urine Color Yellow Urine Appearance Turbid Urine pH 5.5 Ur Specific [place] 1.010 Urine Protein Trace Urine Glucose (UA) Negative Urine Ketones Negative Urine Blood Small (1+) H Urine Nitrite Negative Ur Leukocyte Esterase Large (3+) H Urine RBC 3-5 H Urine WBC >50 H Ur Squamous Epith Cells 3-5 Urine Bacteria 4+ Hyaline Casts 0-2 Influenza Type A (PCR) NEGATIVE Influenza Type B (PCR) NEGATIVE RSV RNA Qual (PCR) NEGATIVE SARS-CoV-2 RNA (RT-PCR) NEGATIVE 04/18/24 04/18/24 04/19/24 17:43 21:02 04:06 MCV 84.5 MCH 25.7 L MCHC 30.4 L RDW 17.9 H Plt Count 182 MPV 9.5 Immature Gran % (Auto) Neut % (Auto) Lymph % (Auto) [place] % (Auto) Eos % (Auto) Baso % (Auto) Lymph # (Auto) [place] # (Auto) Eos # (Auto) Baso # (Auto) Abs Immat Gran (auto) Absolute Neuts (auto) Absolute Nucleated RBC 0.000 Nucleated RBC % (auto) 0.0 Smear Tech's Comments Hold Purple Top SEE NOTE Anion Gap 9 L Estim Creat Clear Calc 37.1 Estimated GFR 42 POC Glucose 103 Random Glucose 148 H Lactic Acid Calcium 8.8 Magnesium Total Bilirubin AST ALT Alkaline Phosphatase Troponin I High Sens 17.9 H D C-Reactive Protein Total Protein Albumin Hold Yellow Top Urine Color Urine Appearance Urine pH Ur Specific [place] Urine Protein Urine Glucose (UA) Urine Ketones Urine Blood Urine Nitrite Ur Leukocyte Esterase Urine RBC Urine WBC Ur Squamous Epith Cells Urine Bacteria Hyaline Casts Influenza Type A (PCR) Influenza Type B (PCR) RSV RNA Qual (PCR) SARS-CoV-2 RNA (RT-PCR) 04/19/24 04/19/24 07:13 09:36 MCV MCH MCHC RDW Plt Count MPV Immature Gran % (Auto) Neut % (Auto) Lymph % (Auto) [place] % (Auto) Eos % (Auto) Baso % (Auto) Lymph # (Auto) [place] # (Auto) Eos # (Auto) Baso # (Auto) Abs Immat Gran (auto) Absolute Neuts (auto) Absolute Nucleated RBC Nucleated RBC % (auto) Smear Tech's Comments Hold Purple Top SEE NOTE Anion Gap Estim Creat Clear Calc Estimated GFR POC Glucose 120 H Random Glucose Lactic Acid Calcium Magnesium Total Bilirubin AST ALT Alkaline Phosphatase Troponin I High Sens C-Reactive Protein Total Protein Albumin Hold Yellow Top See Note Urine Color Urine Appearance Urine pH Ur Specific [place] Urine Protein Urine Glucose (UA) Urine Ketones Urine Blood Urine Nitrite Ur Leukocyte Esterase Urine RBC Urine WBC Ur Squamous Epith Cells Urine Bacteria Hyaline Casts Influenza Type A (PCR) Influenza Type B (PCR) RSV RNA Qual (PCR) SARS-CoV-2 RNA (RT-PCR) Assessment and Plan (1) Urinary tract infection: Status: Acute (2) Sepsis: Status: Acute Plan d2 78yo F resident of [facility] living with COPD2 on home O2, prior CVA with L-sided weakness, HTN, DM2, CHF, COPD, obesity presenting with fever + tachycardia and found to be septic from UTI sepsis due to UTI - 04/18- ceftriaxone, follow BCx/UCx - not severe sepsis KIRAN - improved after IV fluids; hold diuretic; avoid nephrotoxins troponin elevation - no ischemic EKG changes or anginal symptoms; likely due to KIRAN + sepsis; recheck hs-Tn-I COPD with chronic hypoxic resp failure - on home O2; appears to retain CO2 so goal SaO2 no greater than 92%; prn albuterol nebs; ICS inhaler HTN - metoprolol succinate prior CVA - ASA + clopidogrel + atorvastatin hyperthyroidism - methimazole seizure disorder - levetiracetam neuropathy - pregabalin DM2 - shae-dose lispro mood disorder - trazodone + fluoxetine VTE prophylaxis - enoxaparin dispo - eventual return to [facility] In my clinical judgment, the patient requires continued inpatient hospitalization for the following reasons: IV ABX Total time managing care of this patient today: 40 minutes. Quality Stroke Does the patient have a stroke diagnosis?: No VTE Prior VTE?: No VTE Risk Level:: Medical - moderate - high VTE Device Contraindication: N/A - Device Ordered VTE Drug Contraindication: N/A - Med Ordered
[2024-04-19 10:07] LABS: Troponin-I High Sensitivity 15.2 ng/L (<3.5-17.0)
[2024-04-19 11:35] LABS: Glucose, Whole Blood 123 mg/dL (60-115)
--- NOTE | 2024-04-19 14:56 | MHC.CM.PN ---
IMM 04/19/24, to be left at bedside for HCPMariely. Assessment info gathered from HCP and chart, pt is confused at baseline. Pt has 24 /7 care, which includes nursing, PT and OT. HCP could not tell CM the name of the VNA, but said that she will reach out to them to let them know that pt is here. Pt requires assistance for all ADL's and uses a steve lift for transfers. PCP is: Cliff Walsh. Transport home will be via BLS, DCP: home, resume 24/7 care. CM will follow and assist with DC plan.
[2024-04-19] MEDS: 0.9 % Sodium Chloride Flush 3 ML SYRINGE IVFLUSH ×2 (16:56→20:57)
[2024-04-19] MEDS: cefTRIAXone sodium 1 GM in 0.9 % Sodium Chloride 50 ML IV (16:56)
[2024-04-19] MEDS: Enoxaparin Sodium 30 MG/0.3 ML SYRINGE SUBCUT (16:56)
[2024-04-19] MEDS: vancomycin HCL 1,500 MG in 0.9 % Sodium Chloride 500 ML 333.33 MG IV (17:22)
[2024-04-19 18:32] LABS: Glucose, Whole Blood 101 mg/dL (60-115)
--- NOTE | 2024-04-19 19:46 | PHA.PROG ---
Admission Date/Time: April 18, 2024 16:49 Indication: UTI Weight in k.3 kg Adjusted body weight in Kg: [place] body weight in Kg: Obesity Dosing Indication % IBW: Serum Creatinine - Last 168 Hours 04/18/24 04/19/24 14:33 04:06 Creatinine 1.53 H 1.24 Estimated CrCl and GFR - Last 168 Hours 04/18/24 04/19/24 14:33 04:06 Estim Creat Clear Calc 30.1 37.1 Estimated GFR 33 42 Vancomycin Loading Dose: 1500 mg Current Vancomycin Dosing Regimen: 1250 mg Q24H Vancomycin Monitoring using AUC goal of 400 - 600 range with trough as surrogate marker: Estimated AUC = 471 mg/L, trough of 14.3 mg/L Date and Time for next Vancomycin Level to be drawn: 04/20/2024 @ 1600 Pharmacist Comments on Vancomycin Plan: Will give a one time 1500 mg dose tonight and then continue with 1250 mg Q24H tomorrow Vancomycin dosing will take advantage of [employer] as a clinical decision support tool that uses Bayesian modeling to calculate individual patient's pharmacokinetic parameters and forecast the patient's drug concentration time course with the target goal AUC 24 range of 400 - 600 mg/L/hr.
[2024-04-19 20:24] LABS: Glucose, Whole Blood 134 mg/dL (60-115)
[2024-04-19] MEDS: Atorvastatin Calcium 80 MG TABLET PO (20:57)
[2024-04-19] MEDS: traZODone HCL 100 MG TABLET PO (20:57)
[2024-04-20] VITALS (7 sets, daily range): BP systolic 104–124; BP diastolic 58–72; PULSE 56–74; RESP 14–23; TEMP 36.1–36.4; O2SAT 90–98
[2024-04-20 07:56] LABS: Anion Gap 13 (12-20); Blood Urea Nitrogen 13 mg/dL (9-16); C Reactive Protein 1.93 mg/dL (< or = 0.50); Calcium 9.4 mg/dL (8.4-10.2); Carbon Dioxide 35 mmol/L (22-29); Chloride 102 mmol/L (96-108); Estimated Glomerular Filt Rate 55; Glucose Random 134 mg/dL (60-115); Potassium 4.6 mmol/L (3.3-5.1); Sodium 145 mmol/L (135-145)
[2024-04-20 08:00] LABS: Glucose, Whole Blood 128 mg/dL (60-115)
[2024-04-20] MEDS: Fluticasone Propionate 250 MCG BLST.W.DEV 1 PUFF INHALE (08:07)
[2024-04-20] MEDS: methIMAzole 5 MG TABLET 2.5 MG PO (09:11)
[2024-04-20] MEDS: Cyanocobalamin (Vitamin B-12) 500 MCG TABLET PO (09:11)
[2024-04-20] MEDS: Clopidogrel Bisulfate 75 MG TABLET PO (09:11)
[2024-04-20] MEDS: Metoprolol Succinate ER 25 MG TAB.ER.24H PO (09:11)
[2024-04-20] MEDS: Pregabalin 150 MG CAPSULE PO ×3 (09:11→21:58)
[2024-04-20] MEDS: Aspirin Enteric Coated 81 MG TABLET.DR PO (09:12)
[2024-04-20] MEDS: Cholecalciferol (Vitamin D3) 25 MCG TABLET PO (09:12)
[2024-04-20] MEDS: levETIRAcetam 250 MG TABLET PO ×2 (09:12→21:58)
[2024-04-20] MEDS: 0.9 % Sodium Chloride Flush 3 ML SYRINGE IVFLUSH ×3 (09:12→21:58)
[2024-04-20] MEDS: oxyBUTYnin chloride ER 5 MG TAB.ER.24 PO (09:12)
[2024-04-20] MEDS: FLUoxetine HCl 20 MG CAPSULE PO (09:12)
--- NOTE | 2024-04-20 10:23 | P.PNIM_ITS ---
Subjective Subjective Date of Service: 04/20/24 Interval History: urine Cx growing GPCs, started on vancomycin yesterday no fever denies any abd pain Review of Systems Review of Systems: Yes all other systems are reviewed and are negative Physical Exam 2 Vital Signs: Vital Signs: Last Vital Signs Temp 97 F 04/20/24 07:43 Pulse 67 04/20/24 08:08 Resp 14 04/20/24 08:08 BP 118/59 L 04/20/24 07:43 Pulse Ox 94 04/20/24 07:43 O2 Del Method Nasal Cannula 04/20/24 07:43 O2 Flow Rate 2 04/20/24 07:43 Oxygen Flow Rate 4 04/18/24 14:12 BMI result Body Mass Index 33.2 Gen: in no acute distress HEENT: sclera anicteric, moist mucus membranes Neck: supple Lungs: clear to auscultation bilaterally Heart: regular rate and rhythm, no murmurs Abd: soft, non-tender, non-distended Ext: no edema Skin: warm/well-perfused Neuro: alert, chronic facial droop and L-sided weakness Psych: impaired insight Objective Data Active Medications Acetaminophen (Acetaminophen 325 Mg Tablet) 650 mg PO Q6H PRN PRN Reason: Pain, Mild (Pain Scale 1-3), fever or headache Albuterol Sulfate (Albuterol Sulfate (0.083%) 2.5 Mg/3 Ml Vial.Neb) 2.5 mg INHALE RQ6H PRN PRN Reason: Shortness Of Breath Or Wheezing Aspirin (Aspirin Enteric Coated 81 Mg Tablet.) 81 mg PO DAILY [facility] Last Admin: 04/20/24 09:12 Dose: 81 mg Documented By: HAILEY Atorvastatin Calcium (Atorvastatin Calcium 80 Mg Tablet) 80 mg PO BEDTIME [facility] Last Admin: 04/19/24 20:57 Dose: 80 mg Documented By: ELVA Calcium Carbonate (Calcium Carbonate 750 Mg Tab.Chew) 750 mg PO Q4H PRN PRN Reason: Heartburn Clopidogrel Bisulfate (Clopidogrel Bisulfate 75 Mg Tablet) 75 mg PO DAILY [facility] Last Admin: 04/20/24 09:11 Dose: 75 mg Documented By: HAILEY Cyanocobalamin (Cyanocobalamin (Vitamin B-12) 500 Mcg Tablet) 500 mcg PO DAILY [facility] Last Admin: 04/20/24 09:11 Dose: 500 mcg Documented By: HAILEY Enoxaparin Sodium (Enoxaparin Sodium 40 Mg/0.4 Ml Syringe) 40 mg SUBCUT Q24H [facility] Fluoxetine HCl (Fluoxetine Hcl 20 Mg Capsule) 20 mg PO DAILY [facility] Last Admin: 04/20/24 09:12 Dose: 20 mg Documented By: HAILEY Fluticasone Propionate (Fluticasone Propionate 250 Mcg Blst.W.Dev) 1 puff INHALE RBID [facility] Last Admin: 04/20/24 08:07 Dose: 1 puff Documented By: ELMO Furosemide (Furosemide 20 Mg Tablet) 20 mg PO BID@0900,1700 [facility]; Protocol Last Admin: 04/19/24 08:45 Dose: 20 mg Documented By: MICHAEL Glucose (Glucose Gel 15 Gm Gel..Gram.) 15 gm PO Q15M PRN; Protocol PRN Reason: per Hypoglycemia Standing Ord. Ceftriaxone Sodium 1 gm/ (Sodium Chloride) 50 mls @ 100 mls/hr IV Q24H [facility] Last Infusion: 04/19/24 17:33 Dose: Infused Documented By: MICHAEL Dextrose (D10) 250 mls @ 750 mls/hr IV Q15M PRN; Protocol PRN Reason: per Hypoglycemia Standing Ord. Vancomycin HCl 1,250 mg/ (Sodium Chloride) 250 mls @ 166.667 mls/hr IV Q24H [facility] Insulin Human Lispro (Insulin Lispro 100 Unit/Ml 3 Ml Vial) 0 unit SUBCUT QIDACHS [facility]; Protocol Last Admin: 04/20/24 08:05 Dose: Not Given Documented By: HAILEY Non-Admin Reason: poc= 128 Levetiracetam (Levetiracetam 250 Mg Tablet) 250 mg PO BID [facility] Last Admin: 04/20/24 09:12 Dose: 250 mg Documented By: HAILEY Loperamide HCl (Loperamide Hcl 2 Mg Capsule) 2 mg PO Q4H PRN PRN Reason: Diarrhea Magnesium Hydroxide (Milk Of Magnesia 30 Ml Oral.Susp) 30 ml PO DAILY PRN PRN Reason: Constipation Melatonin (Melatonin 3 Mg Tablet) 6 mg PO BEDTIME PRN PRN Reason: Insomnia Methimazole (Methimazole 5 Mg Tablet) 2.5 mg PO DAILY [facility] Last Admin: 04/20/24 09:11 Dose: 2.5 mg Documented By: HAILEY Metoprolol Succinate (Metoprolol Succinate Er 25 Mg Tab.Er.24h) 25 mg PO DAILY [facility]; Protocol Last Admin: 04/20/24 09:11 Dose: 25 mg Documented By: HAILEY Ondansetron HCl (Ondansetron Hcl 4 Mg/2 Ml Vial) 4 mg IVPUSH Q8H PRN PRN Reason: Nausea and Vomiting Oxybutynin Chloride (Oxybutynin Chloride Er 5 Mg Tab.Er.24) 5 mg PO DAILY [facility] Last Admin: 04/20/24 09:12 Dose: 5 mg Documented By: HAILEY Pharmacy Consult (Consult Rx Vancomycin Dosing) 1 each MISCELLANE DAILY PRN PRN Reason: Consult order Pregabalin (Pregabalin 150 Mg Capsule) 150 mg PO TID [facility] Last Admin: 04/20/24 09:11 Dose: 150 mg Documented By: HAILEY Sodium Chloride (0.9 % Sodium Chloride Flush 3 Ml Syringe) 3 ml IVFLUSH QSHIFT [facility] Last Admin: 04/20/24 09:12 Dose: 3 ml Documented By: HAILEY Trazodone HCl (Trazodone Hcl 100 Mg Tablet) 100 mg PO BEDTIME [facility] Last Admin: 04/19/24 20:57 Dose: 100 mg Documented By: ELVA Vitamin D (Cholecalciferol (Vitamin D3) 25 Mcg Tablet) 25 mcg PO DAILY [facility] Last Admin: 04/20/24 09:12 Dose: 25 mcg Documented By: HAILEY Labs 04/19/24 04:06 04/20/24 07:00 Labs: Laboratory Results - last 24 hr 04/19/24 04/19/24 04/19/24 11:32 18:29 19:51 Hold Purple Top Anion Gap Estim Creat Clear Calc Estimated GFR POC Glucose 123 H 101 134 H Random Glucose Calcium C-Reactive Protein 04/20/24 04/20/24 07:00 07:49 Hold Purple Top SEE NOTE Anion Gap 13 Estim Creat Clear Calc 47.0 Estimated GFR 55 POC Glucose 128 H Random Glucose 134 H Calcium 9.4 D C-Reactive Protein 1.93 H Microbiology Microbiology Results: Microbiology 04/18/24 Unknown Urine Culture - Preliminary Urine Catheterized - Straight Catheter Gram positive cocci 04/18/24 14:45 Blood Culture - Preliminary Blood - Venous No growth after 24 hours. 04/18/24 14:32 Blood Culture - Preliminary Blood - Venous No growth after 24 hours. 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, prior CVA with L-sided weakness, HTN, DM2, CHF, COPD, obesity presenting with fever + tachycardia and found to be septic from UTI sepsis due to UTI - 04/18- ceftriaxone, 04/19- vancomycin, follow BCx/UCx [BCx with no growth yet] - not severe sepsis KIRAN, prerenal - resolved after IV fluids and holding diuretic troponin elevation - no ischemic EKG changes or anginal symptoms; likely due to KIRAN + sepsis COPD with chronic hypoxic resp failure - on home O2; appears to retain CO2 so goal SaO2 no greater than 92%; prn albuterol nebs; ICS inhaler HTN - metoprolol succinate prior CVA - ASA + clopidogrel + atorvastatin hyperthyroidism - methimazole seizure disorder - levetiracetam neuropathy - pregabalin DM2 - shae-dose lispro mood disorder - trazodone + fluoxetine VTE prophylaxis - enoxaparin dispo - eventual return to [facility] In my clinical judgment, the patient requires continued inpatient hospitalization for the following reasons: IV ABX Total time managing care of this patient today: 35 minutes. Quality Stroke Does the patient have a stroke diagnosis?: No VTE Prior VTE?: No VTE Risk Level:: Medical - moderate - high VTE Device Contraindication: N/A - Device Ordered VTE Drug Contraindication: N/A - Med Ordered
[2024-04-20 11:23] LABS: Glucose, Whole Blood 170 mg/dL (60-115)
[2024-04-20] MEDS: Insulin Lispro 100 UNIT/ML 3 ML VIAL SUBCUT (12:16)
[2024-04-20] MEDS: cefTRIAXone sodium 1 GM in 0.9 % Sodium Chloride 50 ML IV (14:59)
[2024-04-20 16:10] LABS: Glucose, Whole Blood 82 mg/dL (60-115)
[2024-04-20] MEDS: Enoxaparin Sodium 40 MG/0.4 ML SYRINGE SUBCUT (16:40)
[2024-04-20] MEDS: vancomycin HCL 1,250 MG in 0.9 % Sodium Chloride 250 ML 166.67 MG IV (16:40)
[2024-04-20 19:57] LABS: Glucose, Whole Blood 112 mg/dL (60-115)
[2024-04-20] MEDS: traZODone HCL 100 MG TABLET PO (21:58)
[2024-04-20] MEDS: Atorvastatin Calcium 80 MG TABLET PO (21:58)
[2024-04-21] VITALS (9 sets, daily range): BP systolic 100–133; BP diastolic 53–60; PULSE 52–81; RESP 16–20; TEMP 36.2–36.6; O2SAT 96–100
[2024-04-21 06:42] LABS: Estimated Glomerular Filt Rate 50
[2024-04-21 07:43] LABS: Glucose, Whole Blood 118 mg/dL (60-115)
[2024-04-21] MEDS: Cyanocobalamin (Vitamin B-12) 500 MCG TABLET PO (10:36)
[2024-04-21] MEDS: Clopidogrel Bisulfate 75 MG TABLET PO (10:36)
[2024-04-21] MEDS: Aspirin Enteric Coated 81 MG TABLET.DR PO (10:36)
[2024-04-21] MEDS: oxyBUTYnin chloride ER 5 MG TAB.ER.24 PO (10:36)
[2024-04-21] MEDS: Metoprolol Succinate ER 25 MG TAB.ER.24H PO (10:36)
[2024-04-21] MEDS: FLUoxetine HCl 20 MG CAPSULE PO (10:37)
[2024-04-21] MEDS: methIMAzole 5 MG TABLET 2.5 MG PO (10:37)
[2024-04-21] MEDS: Cholecalciferol (Vitamin D3) 25 MCG TABLET PO (10:37)
[2024-04-21] MEDS: levETIRAcetam 250 MG TABLET PO ×2 (10:37→21:13)
[2024-04-21] MEDS: Pregabalin 150 MG CAPSULE PO ×3 (10:37→21:13)
[2024-04-21] MEDS: 0.9 % Sodium Chloride Flush 3 ML SYRINGE IVFLUSH ×3 (10:38→21:14)
--- NOTE | 2024-04-21 10:57 | HO.PM.IMPN ---
Subjective Subjective Date of Service: 04/21/24 Interval History: no fever no abd pain Review of Systems Review of Systems: Yes all other systems are reviewed and are negative Physical Exam Vital Signs: Vital Signs: Last Vital Signs Temp 97.8 F 04/21/24 07:45 Pulse 54 04/21/24 07:45 Resp 19 04/21/24 07:45 BP 114/56 L 04/21/24 10:42 Pulse Ox 96 04/21/24 07:45 O2 Del Method Nasal Cannula 04/21/24 07:45 O2 Flow Rate 2 04/21/24 07:45 Oxygen Flow Rate 4 04/18/24 14:12 BMI result Body Mass Index 33.2 Gen: in no acute distress HEENT: sclera anicteric, moist mucus membranes Neck: supple Lungs: clear to auscultation bilaterally Heart: regular rate and rhythm, no murmurs Abd: soft, non-tender, non-distended Ext: no edema Skin: warm/well-perfused Neuro: alert, chronic facial droop and L-sided weakness Psych: impaired insight Objective Data Active Medications Acetaminophen (Acetaminophen 325 Mg Tablet) 650 mg PO Q6H PRN PRN Reason: Pain, Mild (Pain Scale 1-3), fever or headache Albuterol Sulfate (Albuterol Sulfate (0.083%) 2.5 Mg/3 Ml Vial.Neb) 2.5 mg INHALE RQ6H PRN PRN Reason: Shortness Of Breath Or Wheezing Aspirin (Aspirin Enteric Coated 81 Mg Tablet.) 81 mg PO DAILY [facility] Last Admin: 04/21/24 10:36 Dose: 81 mg Documented By: KAT Atorvastatin Calcium (Atorvastatin Calcium 80 Mg Tablet) 80 mg PO BEDTIME [facility] Last Admin: 04/20/24 21:58 Dose: 80 mg Documented By: ELVA Calcium Carbonate (Calcium Carbonate 750 Mg Tab.Chew) 750 mg PO Q4H PRN PRN Reason: Heartburn Clopidogrel Bisulfate (Clopidogrel Bisulfate 75 Mg Tablet) 75 mg PO DAILY [facility] Last Admin: 04/21/24 10:36 Dose: 75 mg Documented By: KAT Cyanocobalamin (Cyanocobalamin (Vitamin B-12) 500 Mcg Tablet) 500 mcg PO DAILY [facility] Last Admin: 04/21/24 10:36 Dose: 500 mcg Documented By: KAT Enoxaparin Sodium (Enoxaparin Sodium 40 Mg/0.4 Ml Syringe) 40 mg SUBCUT Q24H [facility] Last Admin: 04/20/24 16:40 Dose: 40 mg Documented By: HAILEY Fluoxetine HCl (Fluoxetine Hcl 20 Mg Capsule) 20 mg PO DAILY [facility] Last Admin: 04/21/24 10:37 Dose: 20 mg Documented By: KAT Fluticasone Propionate (Fluticasone Propionate 250 Mcg Blst.W.Dev) 1 puff INHALE RBID [facility] Last Admin: 04/21/24 08:44 Dose: Not Given Documented By: TERESA Non-Admin Reason: pt lethargic, nurse aware. Furosemide (Furosemide 20 Mg Tablet) 20 mg PO BID@0900,1700 [facility]; Protocol Last Admin: 04/19/24 08:45 Dose: 20 mg Documented By: MICHAEL Glucose (Glucose Gel 15 Gm Gel..Gram.) 15 gm PO Q15M PRN; Protocol PRN Reason: per Hypoglycemia Standing Ord. Ceftriaxone Sodium 1 gm/ (Sodium Chloride) 50 mls @ 100 mls/hr IV Q24H [facility] Last Infusion: 04/20/24 15:29 Dose: Infused Documented By: HAILEY Dextrose (D10) 250 mls @ 750 mls/hr IV Q15M PRN; Protocol PRN Reason: per Hypoglycemia Standing Ord. Vancomycin HCl 1,250 mg/ (Sodium Chloride) 250 mls @ 166.667 mls/hr IV Q24H [facility] Last Infusion: 04/20/24 18:10 Dose: Infused Documented By: HAILEY Insulin Human Lispro (Insulin Lispro 100 Unit/Ml 3 Ml Vial) 0 unit SUBCUT QIDACHS [facility]; Protocol Last Admin: 04/21/24 07:59 Dose: Not Given Documented By: KAT Non-Admin Reason: No Insulin Coverage Levetiracetam (Levetiracetam 250 Mg Tablet) 250 mg PO BID [facility] Last Admin: 04/21/24 10:37 Dose: 250 mg Documented By: KAT Loperamide HCl (Loperamide Hcl 2 Mg Capsule) 2 mg PO Q4H PRN PRN Reason: Diarrhea Magnesium Hydroxide (Milk Of Magnesia 30 Ml Oral.Susp) 30 ml PO DAILY PRN PRN Reason: Constipation Melatonin (Melatonin 3 Mg Tablet) 6 mg PO BEDTIME PRN PRN Reason: Insomnia Methimazole (Methimazole 5 Mg Tablet) 2.5 mg PO DAILY [facility] Last Admin: 04/21/24 10:37 Dose: 2.5 mg Documented By: KAT Comments: Metoprolol Succinate (Metoprolol Succinate Er 25 Mg Tab.Er.24h) 25 mg PO DAILY [facility]; Protocol Last Admin: 04/21/24 10:36 Dose: 25 mg Documented By: KAT Ondansetron HCl (Ondansetron Hcl 4 Mg/2 Ml Vial) 4 mg IVPUSH Q8H PRN PRN Reason: Nausea and Vomiting Oxybutynin Chloride (Oxybutynin Chloride Er 5 Mg Tab.Er.24) 5 mg PO DAILY [facility] Last Admin: 04/21/24 10:36 Dose: 5 mg Documented By: KAT Pharmacy Consult (Consult Rx Vancomycin Dosing) 1 each MISCELLANE DAILY PRN PRN Reason: Consult order Pregabalin (Pregabalin 150 Mg Capsule) 150 mg PO TID [facility] Last Admin: 04/21/24 10:37 Dose: 150 mg Documented By: KAT Sodium Chloride (0.9 % Sodium Chloride Flush 3 Ml Syringe) 3 ml IVFLUSH QSHIFT [facility] Last Admin: 04/21/24 10:38 Dose: 3 ml Documented By: KAT Trazodone HCl (Trazodone Hcl 100 Mg Tablet) 100 mg PO BEDTIME [facility] Last Admin: 04/20/24 21:58 Dose: 100 mg Documented By: ELVA Vitamin D (Cholecalciferol (Vitamin D3) 25 Mcg Tablet) 25 mcg PO DAILY [facility] Last Admin: 04/21/24 10:37 Dose: 25 mcg Documented By: KAT Labs 04/19/24 04:06 04/21/24 05:40 Labs: Laboratory Results - last 24 hr 04/20/24 04/20/24 04/20/24 11:19 16:06 19:53 Hold Purple Top Estim Creat Clear Calc Estimated GFR POC Glucose 170 H 82 112 04/21/24 04/21/24 05:40 07:32 Hold Purple Top SEE NOTE Estim Creat Clear Calc 43.0 Estimated GFR 50 POC Glucose 118 H Microbiology Microbiology Results: Microbiology 04/18/24 14:45 Blood Culture - Preliminary Blood - Venous No growth after 48 hours. 04/18/24 14:32 Blood Culture - Preliminary Blood - Venous No growth after 48 hours. 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, prior CVA with L-sided weakness, HTN, DM2, CHF, COPD, obesity presenting with fever + tachycardia and found to be septic from UTI sepsis due to UTI - 04/18- ceftriaxone, 04/19- vancomycin, follow BCx/UCx [BCx with no growth yet, UCx growing Gram-positive cocci] - not severe sepsis KIRAN, prerenal - resolved after IV fluids and holding diuretic troponin elevation - no ischemic EKG changes or anginal symptoms; likely due to KIRAN + sepsis COPD with chronic hypoxic resp failure - on home O2; appears to retain CO2 so goal SaO2 is no greater than 92%; prn albuterol nebs; ICS inhaler HTN - metoprolol succinate prior CVA - ASA + clopidogrel + atorvastatin hyperthyroidism - methimazole seizure disorder - levetiracetam neuropathy - pregabalin DM2 - shae-dose lispro mood disorder - trazodone + fluoxetine VTE prophylaxis - enoxaparin dispo - eventual return to [facility] living In my clinical judgment, the patient requires continued inpatient hospitalization for the following reasons: IV ABX Total time managing care of this patient today: 35 minutes. Quality Stroke Does the patient have a stroke diagnosis?: No VTE Prior VTE?: No VTE Risk Level:: Medical - moderate - high VTE Device Contraindication: N/A - Device Ordered VTE Drug Contraindication: N/A - Med Ordered
[2024-04-21 11:23] LABS: Glucose, Whole Blood 104 mg/dL (60-115)
[2024-04-21] MEDS: cefTRIAXone sodium 1 GM in 0.9 % Sodium Chloride 50 ML IV (15:55)
[2024-04-21 16:15] LABS: Glucose, Whole Blood 122 mg/dL (60-115)
[2024-04-21 17:01] LABS: Vancomycin Random 14.9 mcg/mL (15-20)
--- NOTE | 2024-04-21 17:17 | HE.PHANOTE ---
RE: vanco Patient's creatinine is unstable, reduced dose to 1000mg Q24H with predicted AUC of484 mg/L, trough of 14.9, toxicity 10%. Next level to be drawn after one dose 04/22 @1600. Will adjust accordingly
[2024-04-21] MEDS: Enoxaparin Sodium 40 MG/0.4 ML SYRINGE SUBCUT (18:10)
[2024-04-21] MEDS: vancomycin HCL 1,000 MG in 0.9 % Sodium Chloride 250 ML 270 MG IV (18:11)
[2024-04-21] MEDS: Fluticasone Propionate 250 MCG BLST.W.DEV 1 PUFF INHALE (20:15)
[2024-04-21 20:40] LABS: Glucose, Whole Blood 123 mg/dL (60-115)
[2024-04-21] MEDS: traZODone HCL 100 MG TABLET PO (21:13)
[2024-04-21] MEDS: Atorvastatin Calcium 80 MG TABLET PO (21:13)
[2024-04-22] VITALS (7 sets, daily range): BP systolic 120–148; BP diastolic 56–66; PULSE 54–80; RESP 14–18; TEMP 36.1–36.3; O2SAT 96–99; BMI 33.2
[2024-04-22 06:51] LABS: Creatinine Clr Calc Pharmacy 41.9; Estimated Glomerular Filt Rate 48
[2024-04-22 07:04] LABS: Glucose, Whole Blood 112 mg/dL (60-115)
[2024-04-22] MEDS: 0.9 % Sodium Chloride Flush 3 ML SYRINGE IVFLUSH ×2 (08:31→16:39)
[2024-04-22] MEDS: oxyBUTYnin chloride ER 5 MG TAB.ER.24 PO (08:32)
[2024-04-22] MEDS: methIMAzole 5 MG TABLET 2.5 MG PO (08:32)
[2024-04-22] MEDS: levETIRAcetam 250 MG TABLET PO ×2 (08:33→21:08)
[2024-04-22] MEDS: Metoprolol Succinate ER 25 MG TAB.ER.24H PO (08:33)
[2024-04-22] MEDS: Aspirin Enteric Coated 81 MG TABLET.DR PO (08:34)
[2024-04-22] MEDS: Cyanocobalamin (Vitamin B-12) 500 MCG TABLET PO (08:35)
[2024-04-22] MEDS: FLUoxetine HCl 20 MG CAPSULE PO (08:35)
[2024-04-22] MEDS: Clopidogrel Bisulfate 75 MG TABLET PO (08:35)
[2024-04-22] MEDS: Cholecalciferol (Vitamin D3) 25 MCG TABLET PO (08:35)
[2024-04-22] MEDS: Pregabalin 150 MG CAPSULE PO ×3 (08:38→21:08)
[2024-04-22] MEDS: Fluticasone Propionate 250 MCG BLST.W.DEV 1 PUFF INHALE ×2 (09:34→20:23)
--- NOTE | 2024-04-22 09:38 | MHC.CLN ---
RE; CONSULT PT WITH INCREASED NUTRITION RISK R/T PRESSURE INJURY PO INTAKE 0 & 75% X 2 MEALS DIET RX: 2000DM -APPROPRIATE RECOMMEND ADDING ENSURE MAX BID TO PROMOTE WOUND HEALING SUPP TO PROVIDE 300KCALS, 60G PROTEIN MONITOR PO INTAKE AND ENCOURAGE SUPPLEMENTS SEE ALSO FULL CLINICAL NUTRITION ASSESSMENT
--- NOTE | 2024-04-22 10:36 | MHC.CM.PN ---
Per MD in [place], will check on cultures, home/resume / care and services is the goal and CM will continue to follow.
[2024-04-22 10:57] LABS: Glucose, Whole Blood 165 mg/dL (60-115)
[2024-04-22] MEDS: Insulin Lispro 100 UNIT/ML 3 ML VIAL SUBCUT ×2 (11:20→21:07)
[2024-04-22 16:03] LABS: Glucose, Whole Blood 115 mg/dL (60-115)
[2024-04-22] MEDS: cefTRIAXone sodium 1 GM in 0.9 % Sodium Chloride 50 ML IV (16:38)
[2024-04-22] MEDS: Enoxaparin Sodium 40 MG/0.4 ML SYRINGE SUBCUT (16:39)
--- NOTE | 2024-04-22 16:51 | HO.PM.IMPN ---
Subjective Subjective Date of Service: 04/22/24 Interval History: No acute issues overnight. Review of Systems Denies chest pain Denies shortness of breath Denies nausea vomiting diarrhea Denies fever chills Physical Exam Vital Signs: Vital Signs: Last Vital Signs Temp 96.9 F 04/22/24 15:34 Pulse 74 04/22/24 15:34 Resp 14 04/22/24 15:34 BP 141/60 H 04/22/24 15:34 Pulse Ox 96 04/22/24 15:34 O2 Del Method Nasal Cannula 04/22/24 15:34 O2 Flow Rate 2 04/22/24 15:34 Oxygen Flow Rate 4 04/18/24 14:12 BMI result Body Mass Index 33.2 Const: Other: Awake alert no acute distress Resp: Other: Clear to auscultation bilaterally no rales rhonchi or wheezes Cardio: Other: No S4; positive S1-S2; no S3 murmurs rubs or gallops GI: Other: Soft nontender nondistended normoactive bowel sounds Extrem: Other: No edema bilaterally Objective Data Active Medications Acetaminophen (Acetaminophen 325 Mg Tablet) 650 mg PO Q6H PRN PRN Reason: Pain, Mild (Pain Scale 1-3), fever or headache Albuterol Sulfate (Albuterol Sulfate (0.083%) 2.5 Mg/3 Ml Vial.Neb) 2.5 mg INHALE RQ6H PRN PRN Reason: Shortness Of Breath Or Wheezing Aspirin (Aspirin Enteric Coated 81 Mg Tablet.) 81 mg PO DAILY [facility] Last Admin: 04/22/24 08:34 Dose: 81 mg Documented By: XAVIER Atorvastatin Calcium (Atorvastatin Calcium 80 Mg Tablet) 80 mg PO BEDTIME [facility] Last Admin: 04/21/24 21:13 Dose: 80 mg Documented By: ELVA Calcium Carbonate (Calcium Carbonate 750 Mg Tab.Chew) 750 mg PO Q4H PRN PRN Reason: Heartburn Clopidogrel Bisulfate (Clopidogrel Bisulfate 75 Mg Tablet) 75 mg PO DAILY [facility] Last Admin: 04/22/24 08:35 Dose: 75 mg Documented By: XAVIER Cyanocobalamin (Cyanocobalamin (Vitamin B-12) 500 Mcg Tablet) 500 mcg PO DAILY [facility] Last Admin: 04/22/24 08:35 Dose: 500 mcg Documented By: XAVIER Enoxaparin Sodium (Enoxaparin Sodium 40 Mg/0.4 Ml Syringe) 40 mg SUBCUT Q24H [facility] Last Admin: 04/22/24 16:39 Dose: 40 mg Documented By: XAVIER Fluoxetine HCl (Fluoxetine Hcl 20 Mg Capsule) 20 mg PO DAILY [facility] Last Admin: 04/22/24 08:35 Dose: 20 mg Documented By: XAVIER Fluticasone Propionate (Fluticasone Propionate 250 Mcg Blst.W.Dev) 1 puff INHALE RBID [facility] Last Admin: 04/22/24 09:34 Dose: 1 puff Documented By: JC Furosemide (Furosemide 20 Mg Tablet) 20 mg PO BID@0900,1700 [facility]; Protocol Last Admin: 04/19/24 08:45 Dose: 20 mg Documented By: MICHAEL Glucose (Glucose Gel 15 Gm Gel..Gram.) 15 gm PO Q15M PRN; Protocol PRN Reason: per Hypoglycemia Standing Ord. Ceftriaxone Sodium 1 gm/ (Sodium Chloride) 50 mls @ 100 mls/hr IV Q24H [facility] Last Admin: 04/22/24 16:38 Dose: 100 mls/hr Documented By: XAVIER Dextrose (D10) 250 mls @ 750 mls/hr IV Q15M PRN; Protocol PRN Reason: per Hypoglycemia Standing Ord. Vancomycin HCl 1,000 mg/ (Sodium Chloride) 270 mls @ 270 mls/hr IV Q24H [facility] Last Infusion: 04/21/24 19:11 Dose: Infused Documented By: ELVA Insulin Human Lispro (Insulin Lispro 100 Unit/Ml 3 Ml Vial) 0 unit SUBCUT QIDACHS [facility]; Protocol Last Admin: 04/22/24 16:39 Dose: Not Given Documented By: XAVIER Non-Admin Reason: No Insulin Coverage Levetiracetam (Levetiracetam 250 Mg Tablet) 250 mg PO BID [facility] Last Admin: 04/22/24 08:33 Dose: 250 mg Documented By: XAVIER Loperamide HCl (Loperamide Hcl 2 Mg Capsule) 2 mg PO Q4H PRN PRN Reason: Diarrhea Magnesium Hydroxide (Milk Of Magnesia 30 Ml Oral.Susp) 30 ml PO DAILY PRN PRN Reason: Constipation Melatonin (Melatonin 3 Mg Tablet) 6 mg PO BEDTIME PRN PRN Reason: Insomnia Methimazole (Methimazole 5 Mg Tablet) 2.5 mg PO DAILY [facility] Last Admin: 04/22/24 08:32 Dose: 2.5 mg Documented By: XAVIER Comments: Metoprolol Succinate (Metoprolol Succinate Er 25 Mg Tab.Er.24h) 25 mg PO DAILY [facility]; Protocol Last Admin: 04/22/24 08:33 Dose: 25 mg Documented By: XAVIER Ondansetron HCl (Ondansetron Hcl 4 Mg/2 Ml Vial) 4 mg IVPUSH Q8H PRN PRN Reason: Nausea and Vomiting Oxybutynin Chloride (Oxybutynin Chloride Er 5 Mg Tab.Er.24) 5 mg PO DAILY [facility] Last Admin: 04/22/24 08:32 Dose: 5 mg Documented By: XAVIER Pharmacy Consult (Consult Rx Vancomycin Dosing) 1 each MISCELLANE DAILY PRN PRN Reason: Consult order Pregabalin (Pregabalin 150 Mg Capsule) 150 mg PO TID [facility] Last Admin: 04/22/24 16:39 Dose: 150 mg Documented By: XAVIER Sodium Chloride (0.9 % Sodium Chloride Flush 3 Ml Syringe) 3 ml IVFLUSH QSHIFT [facility] Last Admin: 04/22/24 16:39 Dose: 3 ml Documented By: XAVIER Trazodone HCl (Trazodone Hcl 100 Mg Tablet) 100 mg PO BEDTIME [facility] Last Admin: 04/21/24 21:13 Dose: 100 mg Documented By: ELVA Vitamin D (Cholecalciferol (Vitamin D3) 25 Mcg Tablet) 25 mcg PO DAILY [facility] Last Admin: 04/22/24 08:35 Dose: 25 mcg Documented By: XAVIER Labs 04/19/24 04:06 04/22/24 05:50 Labs: Laboratory Results - last 24 hr 04/21/24 04/21/24 04/22/24 16:40 20:34 05:50 Estim Creat Clear Calc 41.9 Estimated GFR 48 POC Glucose 123 H Random Vancomycin 14.9 L 04/22/24 04/22/24 04/22/24 07:00 10:49 15:59 Estim Creat Clear Calc Estimated GFR POC Glucose 112 165 H 115 Random Vancomycin Microbiology Microbiology Results: Microbiology 04/18/24 Unknown Urine Culture - Final Urine Catheterized - Straight Catheter Streptococcus viridans group Assessment and Plan (1) Urinary tract infection: Status: Acute (2) Sepsis: Status: Acute (3) Non-insulin dependent type 2 diabetes mellitus: Status: Acute Plan 78yo F resident of [facility] [place] living with 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 Sepsis resolved. DC vanco -blood cultures negative so far -switch to Ceftin upon DC KIRAN, prerenal - resolved after IV fluids and holding diuretic 2.COPD with chronic hypoxic resp failure -stable and well compensated -continue outpatient therapies 3.HTN -acceptable control on current therapy -adjust as indicated 4.DM2 -acceptable control on current therapies -lispro correctional scale -adjust as indicated Lovenox Full Code dispo - eventual return to [facility] In my clinical judgment, the patient requires continued inpatient hospitalization for the following reasons: IV ABX Quality Stroke Does the patient have a stroke diagnosis?: No VTE Prior VTE?: No VTE Risk Level:: Medical - moderate - high VTE Device Contraindication: N/A - Device Ordered VTE Drug Contraindication: N/A - Med Ordered
[2024-04-22 17:14] LABS: Vancomycin Random 15.5 mcg/mL (15-20)
[2024-04-22] MEDS: vancomycin HCL 1,000 MG in 0.9 % Sodium Chloride 250 ML 270 MG IV (17:48)
[2024-04-22 20:20] LABS: Glucose, Whole Blood 158 mg/dL (60-115)
[2024-04-22] MEDS: traZODone HCL 100 MG TABLET PO (21:08)
[2024-04-22] MEDS: Atorvastatin Calcium 80 MG TABLET PO (21:08)
[2024-04-23] MEDS: 0.9 % Sodium Chloride Flush 3 ML SYRINGE IVFLUSH ×2 (00:28→08:51)
[2024-04-23 03:23] VITALS: BP 126/68; PULSE 62; RESP 17; TEMP 36.2; O2SAT 95
[2024-04-23 06:59] VITALS: BP 144/65; PULSE 73; RESP 18; TEMP 36.7; O2SAT 96
[2024-04-23 07:02] LABS: Glucose, Whole Blood 131 mg/dL (60-115)
[2024-04-23] MEDS: methIMAzole 5 MG TABLET 2.5 MG PO (08:49)
[2024-04-23] MEDS: Clopidogrel Bisulfate 75 MG TABLET PO (08:49)
[2024-04-23] MEDS: Pregabalin 150 MG CAPSULE PO (08:49)
[2024-04-23] MEDS: Cholecalciferol (Vitamin D3) 25 MCG TABLET PO (08:49)
[2024-04-23] MEDS: Metoprolol Succinate ER 25 MG TAB.ER.24H PO (08:50)
[2024-04-23] MEDS: Aspirin Enteric Coated 81 MG TABLET.DR PO (08:50)
[2024-04-23] MEDS: oxyBUTYnin chloride ER 5 MG TAB.ER.24 PO (08:50)
[2024-04-23] MEDS: FLUoxetine HCl 20 MG CAPSULE PO (08:51)
[2024-04-23] MEDS: Cyanocobalamin (Vitamin B-12) 500 MCG TABLET PO (08:51)
[2024-04-23] MEDS: levETIRAcetam 250 MG TABLET PO (08:51)
--- NOTE | 2024-04-23 09:29 | HO.WOUND ---
Wound Consult: Initial 78yr old?female admitted to [facility] on 04/18/24 - See progress notes and H&P for detailed history.? Wound consult placed for sacral wound POA.? Patient agreeable to assessment and photo documentation.? Sacrum Etiology: Stage 2 Pressure injury ??Present on Admission Measurements: see charting for detailed measurements Wound Bed: red wound bed Drainage / Odor: serosang small amount no odor noted Edges: ? irregular and macerated Shala wound: ? MASD - Hyperpigemtation and hypopigmentation - evidence of previous injury No Induration, Fluctuance or Warmth noted Pain: denies Goals of Treatment: ? Off Load Pressure and triad and foam to allow for moist wound healing and to protect from friction Bilateral Posterior calfs are noted for suspected Device related Deep Tissue Injury secondary to us of Trevor lift at facility. The areas are linear and in pattern of lift pad location - remain intact and nonblanchable. Recommend skin prep application and off load pressure. ALYSSA mattress in place and off loading with pillows. Recommendations: 1. Turn and Reposition every 2 hours and as needed for patient comfort.? Use pillows or wedges to support off loading positions. 2. Off Load all bony prominences with use of pillows and heel boots if needed.? Apply Preventative foams where needed. ? 3. Monitor for incontinence and moisture control, use barrier creams when needed for prevention and treatment. 4. Provide adequate and supplemental nutrition.? 5. Continue low air loss mattress. 6. When applicable maintain blood glucose levels per Providers order. 7. Sacrum - Off Load Pressure? - Cleanse with PH balance spray or wipes, pat dry. ?Apply thin layer of Triad to wound bed. Do not remove all of paste between applications as this may cause further skin damage.? Cover with foam dressing to aid in off loading and protection from friction. Change every other day and PRN. 8. Bilateral Posterior Calf - Apply skin prep daily to protect tissue and decrease friction. Off Load Pressure to the area. Re-consult wound care Nurse for wound deterioration or wound changes.
--- NOTE | 2024-04-23 10:35 | MHC.CM.PN ---
Per ROUNDS discussion, Patient is medically cleared for dc to home today. CM attempted to address IMM with Patient at bedside but she appeared to not comprehend the conversation.CM called HCP/Friend/Mariely @ [phone] but was only able to leave a detailed message, requesting a return call in order to coordinate Patient's dc.
[2024-04-23 10:48] LABS: Glucose, Whole Blood 155 mg/dL (60-115)
[2024-04-23 11:00] VITALS: BP 119/60; PULSE 61; RESP 18; TEMP 36.7; O2SAT 97
--- NOTE | 2024-04-23 11:08 | MHC.CM.PN ---
Patient has been medically cleared for dc to home today with resumption of services. CM spoke with Friend/HCP/Erwin @ [phone] and addressed IMM with her (original will be mailed certified letter to Mariely and a copy has been placed on the chart). Per Mariely, she will contact [facility] for resumption of services (she indicated that the name of the [facility] is on Patient's frig and she will be at Patient's home to greet her and call the [facility]na at that time). CM offered to fax dc summary to the [facility].Patient also has services through [facility]. Patient will return home today at 1:30 via [facility].
[2024-04-23] MEDS: Fluticasone Propionate 250 MCG BLST.W.DEV 1 PUFF INHALE (11:52)
[2024-04-23] MEDS: Insulin Lispro 100 UNIT/ML 3 ML VIAL SUBCUT (12:46)
--- NOTE | 2024-04-23 13:35 | PM.DS ---
DS: Providers Provider Date of Service: 04/23/24 Date of admission: 04/18/24 16:49 Date of discharge: 04/23/24 Primary care physician: Cliff Walsh MD Consults: 04/21/24 06:24 Consult to Wound Care Routine Reason for consultation: stage II to buttocks. Recommendations DS: Diagnosis Discharge Diagnosis (1) Urinary tract infection: Status: Acute (2) Sepsis: Status: Acute (3) Non-insulin dependent type 2 diabetes mellitus: Status: Acute DS: Summary Hospital Course Hospital Course: 78yo F resident of [facility] living with 13/02 care, nonambulatory/dependent on Trevor lift for transfer, COPD on home O2, prior CVA with L-sided weakness, HTN, DM2, CHF, COPD, and obesity went in with tactile fever and fast heart rate. Patient minimally verbal and thus history is per ED and per the pt's caregiver at [facility]. In the ED, she was found to be febrile to 101.3 and tachycardic to 103. Creatinine elevated to 1.52 from a baseline of around 1. Lactate 1.2. Urinalysis showed pyuria and bacteruria. No infiltrate on CXR and influena/RSV/Covid-19 PCR all negative. She was given a dose of IV ceftriaxone. Hospital course Patient admitted to telemetry where monitor failed to demonstrate any acute dysrhythmias. She was started on IV ceftriaxone and vancomycin. Her culture ultimately grew out strep viridans in urine however blood cultures x2 were negative for 48 hours. Her acute kidney injury resolved with volume repletion. At this point in time she is medically acceptable for discharge home to complete an oral course of Ceftin. She should follow up with the PCP next available Time Attestation Discharge Coordination Time (in mins): 35 Quality: Safe Use of Opioids Does Pt have an Active Cancer Diagnosis on the Problem List?: No Quality: Stroke Does the patient have a stroke diagnosis?: No Physical Exam Vital Signs: Vital Signs: Last Vital Signs Temp 98.0 F 04/23/24 11:00 Pulse 61 04/23/24 11:00 Resp 18 04/23/24 11:00 BP 119/60 04/23/24 11:00 Pulse Ox 97 04/23/24 11:00 O2 Del Method Nasal Cannula 04/23/24 11:00 O2 Flow Rate 2 04/23/24 11:00 Oxygen Flow Rate 4 04/18/24 14:12 BMI result Body Mass Index 33.2 Const: Other: Awake alert no acute distress Resp: Other: Clear to auscultation bilaterally no rales rhonchi or wheezes Cardio: Other: No S4; positive S1-S2; no S3 murmurs rubs or gallops GI: Other: Soft nontender nondistended normoactive bowel sounds Extrem: Other: No edema bilaterally DS: Data Data Completed and Pending Completed studies during hospitalization [Text1]: Procedures Introduction of Remdesivir Anti-infective into Peripheral Vein, Percutaneous Approach, [employer] 5 (08/02/23) Labs on day of discharge: Laboratory Results - last 24 hr 04/22/24 04/22/24 04/22/24 15:59 16:40 20:16 POC Glucose 115 158 H Random Vancomycin 15.5 04/23/24 04/23/24 06:57 10:40 POC Glucose 131 H 155 H Random Vancomycin Preliminary micro results at discharge 04/18/24 14:45 Blood Culture - Preliminary Blood - Venous No growth after 48 hours. 04/18/24 14:32 Blood Culture - Preliminary Blood - Venous No growth after 48 hours. Discharge Plan Discharge Anticipated Discharge Date/Time: 04/23/24 13:31 Patient Disposition: Home Health Service Discharge Diagnosis: Sepsis secondary to acute UTI Referrals: resume prior vna [Other] - 1 Week Cliff Walsh MD [Primary Care Provider] - 1 Week Discharge Medications: New cefuroxime axetil 500 mg tablet 500 mg PO BID 7 Days Qty: 14 0RF Continued loperamide 2 mg Capsule 2 mg PO Q4H PRN (Reason: Diarrhea) Rx Instructions: administer after each loose stool until symptoms controlled; do not exceed 8 mg per 24 hrs levetiracetam [Keppra] 250 mg Tablet 250 mg PO BID fluticasone propionate 220 mcg/actuation Hfa Aerosol Inhaler 1 puff INHALATION BID methimazole 5 mg tablet 2.5 mg PO DAILY albuterol sulfate [Ventolin HFA] 90 mcg/actuation HFA aerosol inhaler 2 puff inhalation Q6H PRN (Reason: wheezing) atorvastatin 80 mg tablet 80 mg PO BEDTIME albuterol sulfate 2.5 mg /3 mL (0.083 %) solution for nebulization 2.5 mg inhalation Q6H PRN (Reason: Shortness Of Breath Or Wheezing) glipizide 5 mg tablet extended release 24hr 5 mg PO DAILY clopidogrel 75 mg tablet 75 mg PO DAILY folic acid 400 mcg tablet 0.4 mg PO DAILY aspirin 81 mg tablet,delayed release (DR/EC) 81 mg PO DAILY acetaminophen 500 mg Tablet 500 mg PO BID cyanocobalamin (vitamin B-12) 500 mcg tablet 500 mcg PO DAILY oxybutynin chloride 5 mg tablet extended release 24hr 5 mg PO DAILY fluoxetine 20 mg capsule 20 mg PO DAILY zinc oxide 20 % Ointment 1 appl TOPICAL DAILY PRN (Reason: Wound Healing) Rx Instructions: apply to buttocks trazodone 100 mg tablet 100 mg PO BEDTIME furosemide 20 mg tablet 20 mg PO BID@0900,1700 pregabalin 150 mg capsule 150 mg PO TID cholecalciferol (vitamin D3) 25 mcg (1,000 unit) tablet 25 mcg PO DAILY metoprolol succinate 25 mg tablet extended release 24 hr 25 mg PO DAILY Discharge Orders: Discharge Order (Routine); Ordered 04/23/24 Ordered By: Fernandez Love Diet: Advance to usual diet Activity on Discharge: As tolerated Stand Alone Forms: Patient Portal Discharge page Print Language: Pashto Care Plan Goals: Ceftin 500 mg twice daily for 7 days has been added to your medicines to treat a urinary tract infection. Health Concerns: Resume all previous medications as taken prior to the hospital Plan of Treatment: Resume all outpatient fpc and support as prior to the hospital. Follow up with the PCP next available Assessment: See discharge summary
--- NOTE | 2024-04-24 11:30 | P.CDIM_ITS ---
PROVIDER RESPONSE TEXT: To clarify, the appropriate diagnosis supported by the clinical indicators: Pressure Injury buttock Stage 2: Suspected suspectedsuspected QUERY TEXT: PHYSICIAN'S DOCUMENTATION REQUEST Date of Query: 04/22/2024 11:06 AM EDT Patient Name: Rosi Hernández Admit Date: 04/18/2024 Dear Fernandez Love DO, A review of the medical record indicates additional documentation may be needed. Please review below and update the documentation accordingly. Clinical Indicators: Wound care nursing assessment: Pressure injury buttocks Stage 2. Foam dressing. Based on the above, could you please provide further information regarding the ulcer/wound/injury: Pressure Injury buttock Stage 2 possible, probable, suspected etc. Other (explain) Clinically unable to determine (explain) Thank you, Juliana Cartwright, CCS, CDIS Use of terms such as suspected, likely, concern for, or probable (associated with a specific diagnosi s that is being evaluated, monitored, or treated as if it exists) are acceptable and can be coded in the inpatient se tting, when documented at the time of discharge. Please use your independent medical judgment in providing your response. THIS QUERY IS PART OF THE PERMANENT MEDICAL RECORD
--- NOTE | 2024-04-24 11:30 | P.CDIM_ITS ---
PROVIDER RESPONSE TEXT: To clarify, the appropriate diagnosis supported by the clinical indicators: Clinically unable to determine (explain): No echocardiogram on file QUERY TEXT: PHYSICIAN'S DOCUMENTATION REQUEST Date of Query: 04/23/2024 07:35 AM EDT Patient Name: Rosi Hernández Admit Date: 04/18/2024 Dear Fernandez Love DO, A review of the medical record indicates additional documentation may be needed. Please review below and update the documentation accordingly. Clinical Indicators: Patient with Past Medical History of Congestive heart failure, hypertension prior history of CVA. Home medication: Furosemide 20 mg TAB Inhouse medication: Furosemide (Lasix) 20 mg PO BID 0900, 1700 No pedal edema this admission. Chest Xray 04/18 - Low lung volumes. No significant pleural effusion. Please provide further specificity regarding the most likely type and acuity of CHF if known: Systolic Please specify if Acute, Chronic, or Acute on chronic, or Unable to determine Diastolic Please specify if Acute, Chronic, or Acute on chronic, or Unable to determine Combined Systolic/Diastolic Please specify if Acute, Chronic, or Acute on chronic, or Unable to determine Other (explain) Clinically unable to determine (explain) Thank you, Juliana Cartwright, CCS, CDIS Use of terms such as suspected, likely, concern for, or probable (associated with a specific diagnosi s that is being evaluated, monitored, or treated as if it exists) are acceptable and can be coded in the inpatient se tting, when documented at the time of discharge. Please use your independent medical judgment in providing your response. THIS QUERY IS PART OF THE PERMANENT MEDICAL RECORD
== END 2024-04-23 14:48 | disposition home health service (06) | DRG 872 ==
LOC: HO.ED 16:32 → HO.EDOVER 16:53 → HO.IMC 04-19 15:53
PROVIDERS: Registered Nurse Emergency; Admitting Provider Family Medicine; Emergency Provider Student in an Organized Health Care Education/Training Program; PCP Internal Medicine; Visit Provider Hospitalist
DX: A41.9 Sepsis, unspecified organism (principal); N17.9 Acute kidney failure, unspecified; J96.11 Chronic respiratory failure with hypoxia; I69.354 Hemiplegia and hemiparesis following cerebral infarction affecting left non-dominant side; E87.0 Hyperosmolality and hypernatremia; N39.0 Urinary tract infection, site not specified; E05.90 Thyrotoxicosis, unspecified without thyrotoxic crisis or storm; G40.909 Epilepsy, unspecified, not intractable, without status epilepticus; E66.9 Obesity, unspecified; Z68.33 Body mass index [BMI] 33.0-33.9, adult; Z99.81 Dependence on supplemental oxygen; B95.4 Other streptococcus as the cause of diseases classified elsewhere; E11.42 Type 2 diabetes mellitus with diabetic polyneuropathy; L89.322 Pressure ulcer of left buttock, stage 2; Z20.822 Contact with and (suspected) exposure to COVID-19; Z79.51 Long term (current) use of inhaled steroids; Z79.82 Long term (current) use of aspirin; Z79.84 Long term (current) use of oral hypoglycemic drugs; Z79.899 Other long term (current) drug therapy
CPT/HCPCS: 0241U; 36415; 71046; 80048; 80053; 80202; 81001; 81003; 82565; 82947; 83605; 83735; 84484; 85025; 85027; 86140; 87040; 87086; 93005; 94640; 94664; 99285; J0696; J1650; J3370; J3371

== ENCOUNTER → 2024-04-18 16:49 | Outpatient (BNV) | payer MEDICARE, MEDICAID, SELFPAY | PROVIDERS: Admitting Provider Family Medicine; Emergency Provider Student in an Organized Health Care Education/Training Program; Visit Provider Family Medicine | DX: E11.9 Type 2 diabetes mellitus without complications (principal); A41.9 Sepsis, unspecified organism; N39.0 Urinary tract infection, site not specified | CPT/HCPCS: 99223; 99232; 99239 ==

== ENCOUNTER → 2024-06-02 19:29 | Outpatient (BNV) | payer MEDICARE, MEDICAID, SELFPAY | PROVIDERS: Admitting Provider Nurse Practitioner Family; Emergency Provider Emergency Medicine; PCP Internal Medicine; Visit Provider Internal Medicine Cardiovascular Disease | DX: R46.4 Slowness and poor responsiveness (principal) | CPT/HCPCS: 93010 ==

== ENCOUNTER 2024-06-02 19:33 | Inpatient (IN) | payer MEDICARE, MEDICAID, SELFPAY ==
[2024-06-02] VITALS (11 sets, daily range): BP systolic 111–137; BP diastolic 49–82; PULSE 54–63; RESP 12–26; TEMP 36.6–36.8; O2SAT 84–100; BMI 33.9
--- NOTE | 2024-06-02 | ECG_ITS ---
Test Reason : UNRESPONSIVE Blood Pressure : / mmHG Vent. Rate : 070 BPM Atrial Rate : 070 BPM P-R Int : 158 ms QRS Dur : 084 ms QT Int : 374 ms P-R-T Axes : 076 024 033 degrees QTc Int : 403 ms Normal sinus rhythm Normal ECG When compared with ECG of 18-APR-2024 14:42, No significant change was found Referred By: Nancy Pérez Electronically Signed By:Christiano Guerra
--- NOTE | ~2024-06-02 | CT_ITS ---
EXAMINATION: CT ABDOMEN AND PELVIS WITHOUT AND WITH CONTRAST CLINICAL INFORMATION: GI bleeding. COMPARISON: November 03, 2023 TECHNIQUE: Multidetector volumetric imaging was performed of the abdomen and pelvis before and after the IV administration of 80 mL of Omnipaque 350 intravenous contrast. Sagittal and coronal reformatted images were obtained on the technologist's workstation. This CT examination was performed using dose optimization techniques as appropriate, variously including the following: *Automated exposure control *Adjustment of mA and/or kV according to patient size (this includes techniques or standardized protocols for targeted exams where dose is matched to indication/reason for exam; i.e. extremities or head) *Use of iterative reconstruction technique DLP: 2352 mGy-cm FINDINGS: LUNG BASES: There are bilateral dependent posterior lung base opacities. LIVER, GALLBLADDER, AND BILIARY TREE: The liver is normal in size, shape, and attenuation. No focal hepatic lesion or biliary ductal dilatation is present. The gallbladder is unremarkable with no evidence of radiopaque gallstones, gallbladder wall thickening, or obvious pericholecystic inflammatory changes. PANCREAS: Unremarkable SPLEEN: Unremarkable ADRENAL GLANDS: There is left adrenal gland thickening and nodularity. KIDNEYS AND URETERS: The kidneys are normal in size, shape, and attenuation. No hydronephrosis, hydroureter, or calculi seen. There are scattered bilateral renal cysts measuring up to 2.4 cm lower pole left kidney. BLADDER: The urinary bladder is decompressed. GASTROINTESTINAL TRACT: There are diverticula seen throughout the colon. The appendix is visualized and is within normal limits. There are linear areas of apparent contrast extravasation involving the cecum/proximal ascending colon. There is thickening of the distal rectum/anal region with apparent mural hypervascularity. ABDOMINAL WALL: There is a small umbilical hernia containing fat. LYMPH NODES: Normal VASCULAR: There is significant atherosclerotic plaque throughout the visualized aorta and aortic branches. Renal vascular calcifications are noted. PELVIC VISCERA: Small calcific uterine fibroids are noted. OSSEOUS STRUCTURES: Diffuse thoracolumbar degenerative change with grade 1 anterolisthesis L5 over S1 and bilateral L5 spondylolysis. CT/CT gi bleed abd pel wo/w IVcon IMPRESSION: 1. Linear areas of apparent contrast extravasation involving the cecum/proximal ascending colon consistent with GI bleeding.. 2. Thickening of the distal rectum/anal region with apparent mural hypervascularity. 3. Diverticulosis. 4. Atherosclerotic disease. 5. There are bilateral dependent posterior lung base opacities likely atelectasis. Fleischner guidelines were followed. Electronically signed by: Teddy Dobbins MD 06/03/2024 12:30 AM JEISON JACK
--- NOTE | ~2024-06-02 | CT_ITS ---
EXAMINATION: CT brain and CT chest without IV contrast. CLINICAL INDICATION: Hypoxia. AMS following floor. COMPARISON: CT brain 11/03/2023 5 mm thin axial and reformatted 3 mm thin sagittal and coronal images of chest were obtained. DLP 360 TECHNIQUE: 5 mm thin axial and reformatted 2 mm thin sagittal and coronal images of brain were obtained. DLP 646 Subsequently 5 mm thin axial and reformatted 3 mm thin sagittal and coronal images of chest were obtained. DLP 360. This CT examination was performed using dose optimization techniques as appropriate, variously including the following: *Automated exposure control *Adjustment of mA and/or kV according to patient size (this includes techniques or standardized protocols for targeted exams where dose is matched to indication/reason for exam; i.e. extremities or head) *Use of iterative reconstruction technique . FINDINGS: Brain: There is no acute intra-axial, extra-axial bleed, masses or midline shift. There is no acute infarction in evolution. There is a lacunar infarction anterolateral limb right external capsule. The lateral ventricles are symmetrical in size and configuration with mild to moderate enlargement. Bone windows reveal no calvarial abnormality. There is no scalp soft tissue abnormality. There is benign hyperostosis frontalis interna. There is mild mucoperiosteal thickening bilateral ethmoid and left frontal sinuses. CHEST: The lungs are expanded with bibasilar dependent atelectasis in both upper lobes. There is groundglass opacities in both upper lobes and both lower lobes question developing infiltrates. There is no pleural effusion or thickening. No calcified pleural plaque. There is an endotracheal tube with its tip just deviated into the right proximal bronchus and needs to be withdrawn at least by 3 5 cm. Otherwise the central trachea and the bronchi appears widely patent. Thyroid lobes are symmetrical but enlarged. There is left para-aortic, pretracheal and precarinal lymphadenopathy. Atherosclerotic calcification abdominal aorta is noted without aneurysmal dilatation. Moderate coronary artery calcification seen. The heart size enlarged. No pericardial effusion seen. Axilla appears unremarkable. There is elliptical thick-walled collection anterior to the pectoralis major muscle in the left breast likely likely seroma or fluid collection following removal of left augmented breasts or postsurgical changes. Correlate with clinical exam. Visualized liver, spleen and pancreas is unremarkable. There is an enteric tube tip in the stomach. There is probably a small radiopaque calculi upper/mid pole right kidney. Bone windows reveal no aggressive lytic or sclerotic process. There is mild exaggerated thoracic kyphosis. There are median sternotomy sutures from previous intervention. CT/CT chest wo IV con IMPRESSION: No acute intracranial process seen. Bilateral ethmoid and left frontal sinus inflammatory changes. Patchy groundglass opacities in both upper lobes and lower lobes likely developing infiltrates. Endotracheal tube tip is at the origin of right bronchus and needs to be withdrawn at least by 3 to 5 cm. Enteric tube tip is in the stomach. Distal end is not the [id number]. Elliptical thick wall collection left breast anterior to the pectoralis major question seroma from previous removal of augmented breasts, old hematoma or postsurgical changes. Electronically signed by: Washington Ortiz MD 06/02/2024 09:19 PM JEISON JACK
--- NOTE | ~2024-06-02 | CT_ITS ---
EXAMINATION: CT brain and CT chest without IV contrast. CLINICAL INDICATION: Hypoxia. AMS following floor. COMPARISON: CT brain 11/03/2023 5 mm thin axial and reformatted 3 mm thin sagittal and coronal images of chest were obtained. DLP 360 TECHNIQUE: 5 mm thin axial and reformatted 2 mm thin sagittal and coronal images of brain were obtained. DLP 646 Subsequently 5 mm thin axial and reformatted 3 mm thin sagittal and coronal images of chest were obtained. DLP 360. This CT examination was performed using dose optimization techniques as appropriate, variously including the following: *Automated exposure control *Adjustment of mA and/or kV according to patient size (this includes techniques or standardized protocols for targeted exams where dose is matched to indication/reason for exam; i.e. extremities or head) *Use of iterative reconstruction technique . FINDINGS: Brain: There is no acute intra-axial, extra-axial bleed, masses or midline shift. There is no acute infarction in evolution. There is a lacunar infarction anterolateral limb right external capsule. The lateral ventricles are symmetrical in size and configuration with mild to moderate enlargement. Bone windows reveal no calvarial abnormality. There is no scalp soft tissue abnormality. There is benign hyperostosis frontalis interna. There is mild mucoperiosteal thickening bilateral ethmoid and left frontal sinuses. CHEST: The lungs are expanded with bibasilar dependent atelectasis in both upper lobes. There is groundglass opacities in both upper lobes and both lower lobes question developing infiltrates. There is no pleural effusion or thickening. No calcified pleural plaque. There is an endotracheal tube with its tip just deviated into the right proximal bronchus and needs to be withdrawn at least by 3 5 cm. Otherwise the central trachea and the bronchi appears widely patent. Thyroid lobes are symmetrical but enlarged. There is left para-aortic, pretracheal and precarinal lymphadenopathy. Atherosclerotic calcification abdominal aorta is noted without aneurysmal dilatation. Moderate coronary artery calcification seen. The heart size enlarged. No pericardial effusion seen. Axilla appears unremarkable. There is elliptical thick-walled collection anterior to the pectoralis major muscle in the left breast likely likely seroma or fluid collection following removal of left augmented breasts or postsurgical changes. Correlate with clinical exam. Visualized liver, spleen and pancreas is unremarkable. There is an enteric tube tip in the stomach. There is probably a small radiopaque calculi upper/mid pole right kidney. Bone windows reveal no aggressive lytic or sclerotic process. There is mild exaggerated thoracic kyphosis. There are median sternotomy sutures from previous intervention. CT/CT head/brain wo IV con IMPRESSION: No acute intracranial process seen. Bilateral ethmoid and left frontal sinus inflammatory changes. Patchy groundglass opacities in both upper lobes and lower lobes likely developing infiltrates. Endotracheal tube tip is at the origin of right bronchus and needs to be withdrawn at least by 3 to 5 cm. Enteric tube tip is in the stomach. Distal end is not the [id number]. Elliptical thick wall collection left breast anterior to the pectoralis major question seroma from previous removal of augmented breasts, old hematoma or postsurgical changes. Electronically signed by: Washington Ortiz MD 06/02/2024 09:19 PM JEIOSN JACK
--- NOTE | ~2024-06-02 | XR_ITS ---
EXAMINATION: XR CHEST x2 CLINICAL INFORMATION: ET tube placement, hypoxia COMPARISON: 04/18/2024 TECHNIQUE: 2 portable supine exams at 7:38 PM and 8:06 PM of the chest. FINDINGS: Initial radiograph demonstrates low lung volumes similar to baseline. Crowding of lung markings. Evidence of previous cardiac surgery cardiomegaly. Overall lung markings particularly in the right upper lobe are increased and unchanged from baseline. Subsequently, ET tube and NG tube placed in good position. No change in the low lung volumes. No discrete lesion is discernible on radiographs. XR/XR chest 1V IMPRESSION: Satisfactory positioning of ET tube and NG tube. No change in the low lung volumes. Persistent increased lung markings diffusely but more focally within the right upper lobe. Electronically signed by: Darron Michel MD 06/02/2024 09:18 PM JEISON JACK
--- NOTE | ~2024-06-02 | XR_ITS ---
EXAMINATION: XR CHEST x2 CLINICAL INFORMATION: ET tube placement, hypoxia COMPARISON: 04/18/2024 TECHNIQUE: 2 portable supine exams at 7:38 PM and 8:06 PM of the chest. FINDINGS: Initial radiograph demonstrates low lung volumes similar to baseline. Crowding of lung markings. Evidence of previous cardiac surgery cardiomegaly. Overall lung markings particularly in the right upper lobe are increased and unchanged from baseline. Subsequently, ET tube and NG tube placed in good position. No change in the low lung volumes. No discrete lesion is discernible on radiographs. XR/XR chest 1V IMPRESSION: Satisfactory positioning of ET tube and NG tube. No change in the low lung volumes. Persistent increased lung markings diffusely but more focally within the right upper lobe. Electronically signed by: Darron Michel MD 06/02/2024 09:18 PM JEISON JACK
[2024-06-02 19:49] LABS: ABG HCO3 54 mmol/L (22-26); ABG pCO2 106 mmHg (32-45); ABG pH 7.31 (7.35-7.45); ABG pO2 123 mmHg (83-108)
[2024-06-02 19:49] LABS: MANUAL DIFF FLAG NO
[2024-06-02] MEDS: 0.9 % Sodium Chloride 1,000 ML 999 ML IVCONT ×2 (19:50→23:08)
[2024-06-02] MEDS: levETIRAcetam in NaCl (iso-os) 1,500 MG/100 ML PIGGYBACK 400 MG IV (19:51)
[2024-06-02 19:52] LABS: Basophils Percent Auto 0.5 % (0-2); Eosinophils Absolute Auto 0.1 X10*3/uL (0.0-0.4); Eosinophils Percent Auto 2.1 % (0-4); Hematocrit 31.2 % (37.0-47.0); Hemoglobin 9.5 g/dl (12.0-16.0); Imm Gran Abs Auto 0.02 X10*3/uL (0.00-0.03); Imm Gran Pct Auto 0.3 % (0.0-0.4); Lymphocytes Absolute Auto 1.5 X10*3/uL (1.2-4.9); Lymphocytes Percent Auto 23.2 % (20-40); Mean Corpuscular HGB Conc 30.4 g/dl (31.0-35.0); Mean Corpuscular Hemoglobin 25.5 pg (27.0-33.0); Mean Corpuscular Volume 83.6 fL (80.0-98.0); Mean Platelet Volume 10.9 fL (9.4-12.3); Monocytes Absolute Auto 0.6 X10*3/uL (0.1-1.2); Monocytes Percent Auto 9.8 % (2-11); Neutrophils Absolute Auto 4.2 x10*3/uL (2.0-8.3); Neutrophils Percent Auto 64.1 % (45-73); Platelet Count 149 X10*3/uL (160-400); Red Blood Count 3.73 X10*6/uL (4.20-5.50); Red Cell Distribution Width 14.6 % (11.0-16.0); White Blood Count 6.6 X10*3/uL (4.8-10.8)
[2024-06-02 19:52] LABS: ABG Refer to POC result
[2024-06-02 19:53] LABS: Venous Blood Gas Refer to POC result
[2024-06-02 19:53] LABS: VBG Base Excess 22.5 mmol/L; VBG HCO3 53 mmol/L (22-26); VBG pCO2 100 mmHg; VBG pH 7.33 (7.32-7.43); VBG pO2 47 mmHg
[2024-06-02] MEDS: Etomidate 20 MG/10 ML VIAL IVPUSH (19:59)
[2024-06-02] MEDS: Rocuronium Bromide 50 MG/5 ML VIAL IVPUSH (19:59)
[2024-06-02] MEDS: propofoL 1,000 MG/100 ML VIAL 14.17 MG IVCONT (20:04)
[2024-06-02 20:07] LABS: Lactic Acid 0.6 mmol/L (0.5-2.0)
[2024-06-02 20:13] LABS: B Type Natriuretic Peptide 156 pg/mL (<100); Troponin-I High Sensitivity 6.3 ng/L (<3.5-17.0)
[2024-06-02 20:17] LABS: Alanine Aminotransferase < 6 U/L (0-31); Albumin Level 3.6 g/dL (3.5-5.0); Alkaline Phosphatase 55 U/L (39-117); Anion Gap 13 (12-20); Aspartate Amino Transferase 17 U/L (5-31); Bilirubin Direct 0.1 mg/dL (0.0-0.5); Bilirubin Total 0.3 mg/dL (0.0-1.0); Blood Urea Nitrogen 26 mg/dL (9-16); Calcium 9.5 mg/dL (8.4-10.2); Carbon Dioxide 42 mmol/L (22-29); Chloride 94 mmol/L (96-108); Creatinine Clr Calc Pharmacy 31.6; Estimated Glomerular Filt Rate 38; Ethanol < 10 mg/dL; Glucose Random 107 mg/dL (60-115); Potassium 4.7 mmol/L (3.3-5.1); Sodium 144 mmol/L (135-145); Total Protein 7.8 g/dL (6.5-8.0)
[2024-06-02 20:27] LABS: TSH reflex Free T4 1.37 uIU/mL (0.32-4.0)
--- NOTE | 2024-06-02 20:36 | PC.NURSE ---
upon receiving ABG results MD and RT to bedside to intubate. pt remained not responsive to painful stimuli at this time. sats 100% on baseline 3L oxymask. RSI kit obtained per 20mg Etomidate and 50mg Rocuronium administered at 1959. 2001 pt intubated 7.5 20 at the lip. 2003 propofol started at 30mcg/kg/min at weight 78.7kg. 2004 OG tube placed by . XR at bedside. tube advanced to 22 at the lip by MD/RT. temp sensing gillespie cathether placed, linen changed/triston care provided. pt to ct scan at this time with RT and COMPRESSOR ENGINEER Rubina.
[2024-06-02 20:37] LABS: Appearance Urine Clear; Color Urine Yellow; Glucose Urine UA Negative (Negative); Leukocyte Esterase Urine Negative (Negative); Nitrite Urine Negative (Negative); UMIC TRIGGER UACC YES; Urine Blood Trace (Negative); Urine Ketones Negative (Negative); Urine Protein Negative (Neg-Trace)
[2024-06-02 20:39] LABS: Bacteria Urine None Seen (None Seen); WBC Urine 0-5 /HPF (0-5)
[2024-06-02 20:46] LABS: Amphetamine Screen Urine Not Detected (Not Detect); Barbiturates, Urine Not Detected (Not Detect); Benzodiazepines Screen Urine POSITIVE (Not Detect); Buprenorphine Scr Not Detected (Not Detect); Cannabinoid Screen Urine Not Detected (Not Detect); Cocaine Screen Urine Not Detected (Not Detect); Fentanyl, urine Not Detected (Not Detect); Methadone Screen, Urine Not Detected (Not Detect); Opiate Screen Urine Not Detected (Not Detect); Oxycodone Screen Urine Not Detected (Not Detect); Phencyclidine Screen Urine Not Detected (Not Detect)
--- NOTE | 2024-06-02 20:52 | PC.NURSE ---
Late entry: pt jasen from [facility], per EMS pt was found in her recliner unresponsive approx 45 min RADIOLOGIC THERAPIST, LWKT was this AM. Pt exhibiting seizure like activity. Pt O2 was 84% on 3L baseline, EMS started manual bagging and gave 4mg of versed IM. IV line established. on arrival pt remains unresponsive. 2nd iv established to L. AC. ekg obtained. labs obtained. RT at bedside pt placed on oxymask 5L and at 98%. RT obtained ABG. see previous note. on arrival no external trauma noted to extremities/head. no biting of the tongue noticed. skin wpd. lung sounds diminished. pt clothes cut off and placed on cardiac o2 and bp monitoring.
[2024-06-02 20:53] LABS: COVID-19 Test Negative (Negative); IDNOW Serial# 08D9AD1C; IDNOW Serial# 152EDE1D; Influenza A Negative (Negative); Influenza B2 Negative (Negative)
[2024-06-02] MEDS: Midazolam HCl/PF 2 MG/2 ML VIAL IVPUSH (21:04)
--- NOTE | 2024-06-02 21:04 | PC.NURSE ---
Addendum entered by Tony Blunt 06/02/24 21:05: 2104 not 2003 Original Note: 2003 2mg Versed IVP per MD Izquiredo verbal order as pt bucking vent. sinus tico on monitor did not titrate propofol higher. per ordering versed drip in addition.
[2024-06-02] MEDS: Midazolam HCl/NS 50 MG/50 ML PLAST..BAG IVCONT (21:14)
[2024-06-02] MEDS: Azithromycin 500 MG in 0.9 % Sodium Chloride 250 ML 125 MG IV (21:18)
[2024-06-02] MEDS: cefTRIAXone sodium 1 GM VIAL IVPUSH (21:19)
--- NOTE | 2024-06-02 21:24 | ED.GENADULT ---
HPI - General Adult General Chief complaint: Seizure Stated complaint: FOUND UNRESPONSIVE,SEIZURE LIKE ACTIVITY,O2 85 Time Seen by Provider: 06/02/24 19:34 Source: EMS Mode of arrival: EMS Limitations: other History of Present Illness ED Provider: Dr. Kirsten Izquierdo HPI narrative: Patient comes to the emergency room from [facility] via ambulance. According to ENTs, the patient was found slouched in her couch possibly having a seizure. On arrival of EMS, patient's oxygen saturation was in the mid 80s while using her usual 2 L of oxygen. Patient was unresponsive. EMS gave to the patient 1 mg of intranasal Versed. On arrival to the ED, patient was unresponsive, ventilated via Ambu bag. Related Data Home Medications ?Medication ?Instructions ?Recorded ?Confirmed acetaminophen 500 mg tablet 500 mg PO BID 08/02/23 04/18/24 albuterol sulfate 2.5 mg/3 mL 2.5 mg inhalation Q6H PRN 08/02/23 04/18/24 (0.083 %) solution for nebulization Shortness Of Breath Or Wheezing aspirin 81 mg tablet,delayed 81 mg PO DAILY 08/02/23 04/18/24 release atorvastatin 80 mg tablet 80 mg PO BEDTIME 08/02/23 04/18/24 cholecalciferol (vitamin D3) 25 25 mcg PO DAILY 08/02/23 04/18/24 mcg (1,000 unit) tablet clopidogrel 75 mg tablet 75 mg PO DAILY 08/02/23 04/18/24 cyanocobalamin (vitamin B-12) 500 500 mcg PO DAILY 08/02/23 04/18/24 mcg tablet fluoxetine 20 mg capsule 20 mg PO DAILY 08/02/23 04/18/24 folic acid 400 mcg tablet 0.4 mg PO DAILY 08/02/23 04/18/24 furosemide 20 mg tablet 20 mg PO BID@0900,1700 08/02/23 04/18/24 glipizide 5 mg tablet, extended 5 mg PO DAILY 08/02/23 04/18/24 release 24 hr metoprolol succinate 25 mg 25 mg PO DAILY 08/02/23 04/18/24 tablet,extended release 24 hr oxybutynin chloride 5 mg 5 mg PO DAILY 08/02/23 04/18/24 tablet,extended release 24 hr pregabalin 150 mg capsule 150 mg PO TID 08/02/23 04/18/24 trazodone 100 mg tablet 100 mg PO BEDTIME 08/02/23 04/18/24 zinc oxide 20 % topical ointment 1 appl topical DAILY PRN Wound 08/02/23 04/18/24 Healing fluticasone propionate 220 1 puff inhalation BID 09/10/23 04/18/24 mcg/actuation HFA aerosol inhaler levetiracetam 250 mg tablet 250 mg PO BID 09/10/23 04/18/24 (Keppra) loperamide 2 mg capsule 2 mg PO Q4H PRN Diarrhea 09/10/23 04/18/24 albuterol sulfate 90 mcg/actuation 2 puff inhalation Q6H PRN wheezing 04/18/24 04/18/24 aerosol inhaler (Ventolin HFA) methimazole 5 mg tablet 2.5 mg PO DAILY 04/18/24 04/18/24 Previous Rx's ?Medication ?Instructions ?Recorded cefuroxime axetil 500 mg tablet 500 mg PO BID 7 days #14 tabs 04/23/24 Allergies Allergy/AdvReac Type Severity Reaction Status Date / Time Penicillins Allergy Unknown Verified 06/02/24 19:42 piroxicam Allergy Unknown Verified 06/02/24 19:42 shrimp Allergy Hives Verified 06/02/24 19:42 Sulfa (Sulfonamide Allergy Unknown Verified 06/02/24 19:42 Antibiotics) Review of Systems Review of Systems: Yes Unobtainable due to mental status PMFSH Past Medical History Medical History Non-insulin dependent type 2 diabetes mellitus COPD (chronic obstructive pulmonary disease) Peripheral neuropathy HLD (hyperlipidemia) CVA (cerebral vascular accident) Heart failure, unspecified Social History Social History Household Members: Unknown / Unable to assess Housing: Assisted Living Facility Do you presently have visiting nurse or other home services: Yes Unable to assess alcohol history related to: Unknown Alcohol intake: former Comment: bedbound Patient Tobacco Use Status: Never used Tobacco Advance Directives: Yes Advance Directives on File: Yes Advance Directives Date on File: 09/15/23 service: No Physical Exam ED Vital Signs: Vital Signs - 24 hr 06/02/24 19:42 06/02/24 20:04 06/02/24 20:43 Temperature Pulse Rate 63 61 54 Respiratory Rate 12 Blood Pressure 137/54 L 121/58 L 128/64 Pulse Oximetry 98 100 100 Oxygen Delivery Method Oxymask Fraction of Inspired Oxygen 06/02/24 20:50 06/02/24 20:55 06/02/24 20:55 Temperature 97.9 F Pulse Rate 56 58 Respiratory Rate 22 H Blood Pressure 111/80 124/58 L Pulse Oximetry 100 95 Oxygen Delivery Method Mechanical Ventilation Fraction of Inspired Oxygen 100 06/02/24 21:04 Temperature 98.2 F Pulse Rate 54 Respiratory Rate 26 H Blood Pressure 114/50 L Pulse Oximetry 95 Oxygen Delivery Method Mechanical Ventilation Fraction of Inspired Oxygen BMI result Body Mass Index 33.9 Const Other: Appearance: Unresponsive Eyes: Pinpoint pupils ENT: Pharynx normal. Neck: Normal inspection. Neck supple. No lymph nodes noted. No crepitus CVS: Normal heart rate and rhythm. Pulses normal. Normal S1 and S2, +3 systolic murmur Respiratory: No respiratory distress. Bilateral rales, no crackles, no wheezing, moderate air movement Abdomen: Soft , nondistended Skin: Skin warm and dry. Normal skin color. Normal skin turgor. Patient has a stage II pressure ulcer in the coccyx Extremities: No lower extremity edema. No Lacerations. No Rash Neuro: Unresponsive Psych: Unresponsive Course Course Course Narrative: When patient arrived, patient was unresponsive, pinpoint pupils. Oxygen saturation was 92-94% on 15 L. Patient was unresponsive, not reacting to sternal rub or to voice. For airway protection patient was intubated. Medications Administered Generic Name Dose Route Start Last Admin Trade Name Freq PRN Reason Stop Dose Admin Propofol 1,000 mg in 100 mls @ 0 mls/hr 06/02/24 20:30 06/02/24 20:55 Diprivan IVCONT 30 mcg/kg/min .Q0M MARC 14.17 mls/hr Titration Protocol Per Protocol Midazolam HCl 50 mg in 50 mls @ 2 mls/hr 06/02/24 21:15 06/02/24 21:14 Versed IVCONT 2 mg/hr .Q24H MARC 2 mls/hr Administration 2 MG/HR Azithromycin 500 mg/ Sodium 250 mls @ 125 mls/hr 06/02/24 21:09 06/02/24 21:18 Chloride IV 06/02/24 23:08 125 mls/hr ONCE ONE Administration Discontinued Medications Generic Name Dose Route Start Last Admin Trade Name Cali PRN Reason Stop Dose Admin Ceftriaxone Sodium 1 gm 06/02/24 21:09 06/02/24 21:19 Ceftriaxone Sodium 1 Gm Vial IVPUSH 06/02/24 21:10 1 gm ONCE ONE Administration Etomidate 20 mg 06/02/24 20:16 06/02/24 19:59 Etomidate 20 Mg/10 Ml Vial IVPUSH 06/02/24 20:17 20 mg NOW STA Administration Sodium Chloride 1,000 mls @ 999 mls/hr 06/02/24 19:35 06/02/24 21:31 Ns IVCONT 06/02/24 20:35 Infused .Q1H1M ONE Infusion Levetiracetam 1,500 mg in 100 mls @ 400 mls/hr 06/02/24 19:36 06/02/24 20:06 Keppra IV 06/02/24 19:50 Infused ONCE ONE Infusion Midazolam HCl 2 mg 06/02/24 21:04 06/02/24 21:04 Midazolam Hcl/Pf 2 Mg/2 Ml Vial IVPUSH 06/02/24 21:05 2 mg ONCE ONE Administration Rocuronium [place] 50 mg 06/02/24 20:16 06/02/24 19:59 Rocuronium [place] 50 Mg/5 Ml Vial IVPUSH 06/02/24 20:17 50 mg ONCE ONE Administration Procedures Intubation Intubation Type:: Endotracheal Tube Insertion Intubation Date:: 06/02/24 Time out performed: Yes sedative: Etomidate Mg Given: 20 paralytic: Rocuronium Mg Given: 50 Laryngoscope: other (GlideScope) ET Tube Size: 7.5 ET Tube Uncuffed: No Tube Secured Depth (cm): 3 Tube Secured Location: lips Tube Placement Confirmation: visualized tube passing through cords, equal breath sounds bilaterally, no breath sounds over epigastrium and confirmation by capnometry Patient Tolerated Procedure: well and no complications Intubation Complications: none Medical Decision Making Medical Decision Making MDM Narrative: On arrival patient's labs were drawn. Patient's hematology is at baseline, patient has chronic anemia. Coagulation times within normal limits. Arterial blood gases show a pH of 7.3, a pCO2 of 106 and a bicarb of 54. Patient's baseline pCO2 is in the low 60s. Chemistry did not show any obvious abnormality, normal LFTs, normal troponin, BNP 156, TSH normal. Urinalysis negative for UTI. Toxicology positive for benzodiazepines, patient was given Versed before arriving to the hospital. Serology negative for COVID influenza. -my interpretation of EKG: Chest x-ray: ET tube and NG tube in satisfactory position. -my interpretation of head CT: Obvious abnormality. -chest CT, possible pneumonia? Patient has empirically received 2 L of IV fluids, based on ideal weight of 46 kg, patient is obese. Patient also received azithromycin and ceftriaxone. -patient takes Keppra at home, just in case patient had a seizure patient was given Keppra 1500 mg IV -as patient was ready to be transferred to ICU, the patient's nurse made me aware that there was a small amount of blood in the patient's OG tube. Likely secondary to NG tube placement attempt. However, the tube did not go through the nostrils, OG was placed. Occult guaiac test was obtained, it was positive. CT scan of the abdomen pelvis pending -I discussed the above-mentioned with Dr. Felton from the ICU, patient being admitted. Differential Diagnosis Differential Diagnoses: The differential diagnosis associated with the presentation includes (Hypercapnic respiratory failure, seizures, pneumonia) Admission/Observation Consideration of admission/observation: Escalation of care including admission/observation considered Consult Healthcare Provider Management of the patient was discussed with: Crisis Specialist Lab Data [facility] Lab Attestation statement: I reviewed the patient's lab results. 06/02/24 19:34 06/02/24 19:34 Labs: Lab Results 06/02/24 06/02/24 06/02/24 Range/Units 19:34 19:34 19:39 WBC 6.6 (4.8-10.8) X10*3/uL RBC 3.73 L (4.20-5.50) X10*6/uL Hgb 9.5 L (12.0-16.0) g/dl Hct 31.2 L (37.0-47.0) % MCV 83.6 (80.0-98.0) fL MCH 25.5 L (27.0-33.0) pg MCHC 30.4 L (31.0-35.0) g/dl RDW 14.6 (11.0-16.0) % Plt Count 149 L (160-400) X10*3/uL MPV 10.9 (9.4-12.3) fL Immature Gran % (Auto) 0.3 (0.0-0.4) % Neut % (Auto) 64.1 (45-73) % Lymph % (Auto) 23.2 (20-40) % [place] % (Auto) 9.8 (2-11) % Eos % (Auto) 2.1 (0-4) % Baso % (Auto) 0.5 (0-2) % Lymph # (Auto) 1.5 (1.2-4.9) X10*3/uL [place] # (Auto) 0.6 (0.1-1.2) X10*3/uL Eos # (Auto) 0.1 (0.0-0.4) X10*3/uL Baso # (Auto) 0.0 (0.0-0.2) X10*3/uL Abs Immat Gran (auto) 0.02 (0.00-0.03) X10*3/uL Absolute Neuts (auto) 4.2 (2.0-8.3) x10*3/uL Absolute Nucleated RBC 0.000 (0.0-0.012) X10*3/uL Nucleated RBC % (auto) 0.0 (0.0-0.2) /100WBC PT 12.0 (10.9-12.4) SEC INR 1.0 (0.9-1.1) O2 Saturation 100.0 % ABG pH at Pt Temp 7.31 L (7.35-7.45) ABG pCO2 at Pt Temp 106 H* (32-45) mmHg ABG pO2 at Pt Temp 123 H (83-108) mmHg ABG HCO3 54 H (22-26) mmol/L ABG Base Excess (Actual) 23.0 mmol/L VBG pH (7.32-7.43) VBG pCO2 mmHg VBG pO2 mmHg VBG HCO3 (22-26) mmol/L VBG O2 Saturation % VBG Base Excess mmol/L Sodium 144 (135-145) mmol/L Potassium 4.7 (3.3-5.1) mmol/L Chloride 94 L (96-108) mmol/L Carbon Dioxide 42 H* (22-29) mmol/L Anion Gap 13 (12-20) BUN 26 H (9-16) mg/dL Creatinine 1.36 (0.5-1.4) mg/dL Estim Creat Clear Calc 31.6 Estimated GFR 38 Random Glucose 107 (60-115) mg/dL Lactic Acid 0.6 (0.5-2.0) mmol/L Calcium 9.5 (8.4-10.2) mg/dL Magnesium 2.0 (1.6-2.6) mg/dL Total Bilirubin 0.3 (0.0-1.0) mg/dL Direct Bilirubin 0.1 (0.0-0.5) mg/dL AST 17 (5-31) U/L ALT < 6 (0-31) U/L Alkaline Phosphatase 55 (39-117) U/L Troponin I High Sens 6.3 D (<3.5-17.0) ng/L B-Natriuretic Peptide 156 H (<100) pg/mL Total Protein 7.8 (6.5-8.0) g/dL Albumin 3.6 (3.5-5.0) g/dL TSH 1.37 Cancelled (0.32-4.0) uIU/mL Hold Yellow Top See Note Urine Color Urine Appearance Urine pH (5.0-9.0) Ur Specific [place] (1.005-1.025) Urine Protein (Neg-Trace) mg/dL Urine Glucose (UA) (Negative) mg/dL Urine Ketones (Negative) mg/dL Urine Blood (Negative) Urine Nitrite (Negative) Ur Leukocyte Esterase (Negative) Urine RBC (0-2) /HPF Urine WBC (0-5) /HPF Ur Squamous Epith Cells (0-2) /HPF Urine Bacteria (None Seen) Hyaline Casts (0-2) /LPF Stool Occult Blood (NEGATIVE) Urine Opiates Screen (Not Detect) Ur Buprenorphine Scrn (Not Detect) ng/mL Ur Oxycodone Screen (Not Detect) ng/mL Urine Methadone Screen (Not Detect) ng/mL Urine Fentanyl Screen (Not Detect) Ur Barbiturates Screen (Not Detect) Ur Phencyclidine Scrn (Not Detect) Ur Amphetamines Screen (Not Detect) U Benzodiazepines Scrn (Not Detect) Urine Cocaine Screen (Not Detect) U Marijuana (THC) Screen (Not Detect) Ethyl Alcohol < 10 mg/dL COVID-19 (MELISSA) (Negative) COVID-19 Clin Com Influenza Type A (MICHEL) (Negative) Influenza Type B (MICHEL) (Negative) Influenza A & B Note 06/02/24 06/02/24 06/02/24 Range/Units 19:49 20:22 20:29 WBC (4.8-10.8) X10*3/uL RBC (4.20-5.50) X10*6/uL Hgb (12.0-16.0) g/dl Hct (37.0-47.0) % MCV (80.0-98.0) fL MCH (27.0-33.0) pg MCHC (31.0-35.0) g/dl RDW (11.0-16.0) % Plt Count (160-400) X10*3/uL MPV (9.4-12.3) fL Immature Gran % (Auto) (0.0-0.4) % Neut % (Auto) (45-73) % Lymph % (Auto) (20-40) % [place] % (Auto) (2-11) % Eos % (Auto) (0-4) % Baso % (Auto) (0-2) % Lymph # (Auto) (1.2-4.9) X10*3/uL [place] # (Auto) (0.1-1.2) X10*3/uL Eos # (Auto) (0.0-0.4) X10*3/uL Baso # (Auto) (0.0-0.2) X10*3/uL Abs Immat Gran (auto) (0.00-0.03) X10*3/uL Absolute Neuts (auto) (2.0-8.3) x10*3/uL Absolute Nucleated RBC (0.0-0.012) X10*3/uL Nucleated RBC % (auto) (0.0-0.2) /100WBC PT (10.9-12.4) SEC INR (0.9-1.1) O2 Saturation % ABG pH at Pt Temp (7.35-7.45) ABG pCO2 at Pt Temp (32-45) mmHg ABG pO2 at Pt Temp (83-108) mmHg ABG HCO3 (22-26) mmol/L ABG Base Excess (Actual) mmol/L VBG pH 7.33 (7.32-7.43) VBG pCO2 100 mmHg VBG pO2 47 mmHg VBG HCO3 53 H (22-26) mmol/L VBG O2 Saturation 69.0 % VBG Base Excess 22.5 mmol/L Sodium (135-145) mmol/L Potassium (3.3-5.1) mmol/L Chloride (96-108) mmol/L Carbon Dioxide (22-29) mmol/L Anion Gap (12-20) BUN (9-16) mg/dL Creatinine (0.5-1.4) mg/dL Estim Creat Clear Calc Estimated GFR Random Glucose (60-115) mg/dL Lactic Acid (0.5-2.0) mmol/L Calcium (8.4-10.2) mg/dL Magnesium (1.6-2.6) mg/dL Total Bilirubin (0.0-1.0) mg/dL Direct Bilirubin (0.0-0.5) mg/dL AST (5-31) U/L ALT (0-31) U/L Alkaline Phosphatase (39-117) U/L Troponin I High Sens (<3.5-17.0) ng/L B-Natriuretic Peptide (<100) pg/mL Total Protein (6.5-8.0) g/dL Albumin (3.5-5.0) g/dL TSH (0.32-4.0) uIU/mL Hold Yellow Top Urine Color Yellow Urine Appearance Clear Urine pH 6.0 (5.0-9.0) Ur Specific [place] 1.010 (1.005-1.025) Urine Protein Negative (Neg-Trace) mg/dL Urine Glucose (UA) Negative (Negative) mg/dL Urine Ketones Negative (Negative) mg/dL Urine Blood Trace H (Negative) Urine Nitrite Negative (Negative) Ur Leukocyte Esterase Negative (Negative) Urine RBC 6-10 H (0-2) /HPF Urine WBC 0-5 (0-5) /HPF Ur Squamous Epith Cells 6-10 (0-2) /HPF Urine Bacteria None Seen (None Seen) Hyaline Casts 3-5 (0-2) /LPF Stool Occult Blood (NEGATIVE) Urine Opiates Screen Not Detected (Not Detect) Ur Buprenorphine Scrn Not Detected (Not Detect) ng/mL Ur Oxycodone Screen Not Detected (Not Detect) ng/mL Urine Methadone Screen Not Detected (Not Detect) ng/mL Urine Fentanyl Screen Not Detected (Not Detect) Ur Barbiturates Screen Not Detected (Not Detect) Ur Phencyclidine Scrn Not Detected (Not Detect) Ur Amphetamines Screen Not Detected (Not Detect) U Benzodiazepines Scrn POSITIVE H (Not Detect) Urine Cocaine Screen Not Detected (Not Detect) U Marijuana (THC) Screen Not Detected (Not Detect) Ethyl Alcohol mg/dL COVID-19 (MELISSA) Negative (Negative) COVID-19 Clin Com See Note Influenza Type A (MICHEL) Negative (Negative) Influenza Type B (MICHEL) Negative (Negative) Influenza A & B Note See Note 06/02/24 Range/Units 21:32 WBC (4.8-10.8) X10*3/uL RBC (4.20-5.50) X10*6/uL Hgb (12.0-16.0) g/dl Hct (37.0-47.0) % MCV (80.0-98.0) fL MCH (27.0-33.0) pg MCHC (31.0-35.0) g/dl RDW (11.0-16.0) % Plt Count (160-400) X10*3/uL MPV (9.4-12.3) fL Immature Gran % (Auto) (0.0-0.4) % Neut % (Auto) (45-73) % Lymph % (Auto) (20-40) % [place] % (Auto) (2-11) % Eos % (Auto) (0-4) % Baso % (Auto) (0-2) % Lymph # (Auto) (1.2-4.9) X10*3/uL [place] # (Auto) (0.1-1.2) X10*3/uL Eos # (Auto) (0.0-0.4) X10*3/uL Baso # (Auto) (0.0-0.2) X10*3/uL Abs Immat Gran (auto) (0.00-0.03) X10*3/uL Absolute Neuts (auto) (2.0-8.3) x10*3/uL Absolute Nucleated RBC (0.0-0.012) X10*3/uL Nucleated RBC % (auto) (0.0-0.2) /100WBC PT (10.9-12.4) SEC INR (0.9-1.1) O2 Saturation % ABG pH at Pt Temp (7.35-7.45) ABG pCO2 at Pt Temp (32-45) mmHg ABG pO2 at Pt Temp (83-108) mmHg ABG HCO3 (22-26) mmol/L ABG Base Excess (Actual) mmol/L VBG pH (7.32-7.43) VBG pCO2 mmHg VBG pO2 mmHg VBG HCO3 (22-26) mmol/L VBG O2 Saturation % VBG Base Excess mmol/L Sodium (135-145) mmol/L Potassium (3.3-5.1) mmol/L Chloride (96-108) mmol/L Carbon Dioxide (22-29) mmol/L Anion Gap (12-20) BUN (9-16) mg/dL Creatinine (0.5-1.4) mg/dL Estim Creat Clear Calc Estimated GFR Random Glucose (60-115) mg/dL Lactic Acid (0.5-2.0) mmol/L Calcium (8.4-10.2) mg/dL Magnesium (1.6-2.6) mg/dL Total Bilirubin (0.0-1.0) mg/dL Direct Bilirubin (0.0-0.5) mg/dL AST (5-31) U/L ALT (0-31) U/L Alkaline Phosphatase (39-117) U/L Troponin I High Sens (<3.5-17.0) ng/L B-Natriuretic Peptide (<100) pg/mL Total Protein (6.5-8.0) g/dL Albumin (3.5-5.0) g/dL TSH (0.32-4.0) uIU/mL Hold Yellow Top Urine Color Urine Appearance Urine pH (5.0-9.0) Ur Specific [place] (1.005-1.025) Urine Protein (Neg-Trace) mg/dL Urine Glucose (UA) (Negative) mg/dL Urine Ketones (Negative) mg/dL Urine Blood (Negative) Urine Nitrite (Negative) Ur Leukocyte Esterase (Negative) Urine RBC (0-2) /HPF Urine WBC (0-5) /HPF Ur Squamous Epith Cells (0-2) /HPF Urine Bacteria (None Seen) Hyaline Casts (0-2) /LPF Stool Occult Blood POSITIVE (NEGATIVE) Urine Opiates Screen (Not Detect) Ur Buprenorphine Scrn (Not Detect) ng/mL Ur Oxycodone Screen (Not Detect) ng/mL Urine Methadone Screen (Not Detect) ng/mL Urine Fentanyl Screen (Not Detect) Ur Barbiturates Screen (Not Detect) Ur Phencyclidine Scrn (Not Detect) Ur Amphetamines Screen (Not Detect) U Benzodiazepines Scrn (Not Detect) Urine Cocaine Screen (Not Detect) U Marijuana (THC) Screen (Not Detect) Ethyl Alcohol mg/dL COVID-19 (MELISSA) (Negative) COVID-19 Clin Com Influenza Type A (MICHEL) (Negative) Influenza Type B (MICHEL) (Negative) Influenza A & B Note Independent Interpretation I performed an independent interpretation of an: Plain X-Ray and CT Scan Radiology Impression Discussion of test interpretation with radiology: I have reviewed the radiologist's reading. Radiologist Impression: Brain: There is no acute intra-axial, extra-axial bleed, masses or midline shift. There is no acute infarction in evolution. There is a lacunar infarction anterolateral limb right external capsule. The lateral ventricles are symmetrical in size and configuration with mild to moderate enlargement. Bone windows reveal no calvarial abnormality. There is no scalp soft tissue abnormality. There is benign hyperostosis frontalis interna. There is mild mucoperiosteal thickening bilateral ethmoid and left frontal sinuses. CHEST: The lungs are expanded with bibasilar dependent atelectasis in both upper lobes. There is groundglass opacities in both upper lobes and both lower lobes question developing infiltrates. There is no pleural effusion or thickening. No calcified pleural plaque. There is an endotracheal tube with its tip just deviated into the right proximal bronchus and needs to be withdrawn at least by 3 5 cm. Otherwise the central trachea and the bronchi appears widely patent. Thyroid lobes are symmetrical but enlarged. There is left para-aortic, pretracheal and precarinal lymphadenopathy. Atherosclerotic calcification abdominal aorta is noted without aneurysmal dilatation. Moderate coronary artery calcification seen. The heart size enlarged. No pericardial effusion seen. Axilla appears unremarkable. There is elliptical thick-walled collection anterior to the pectoralis major muscle in the left breast likely likely seroma or fluid collection following removal of left augmented breasts or postsurgical changes. Correlate with clinical exam. Visualized liver, spleen and pancreas is unremarkable. There is an enteric tube tip in the stomach. There is probably a small radiopaque calculi upper/mid pole right kidney. Bone windows reveal no aggressive lytic or sclerotic process. There is mild exaggerated thoracic kyphosis. There are median sternotomy sutures from previous intervention. Critical Care Time Critical Care Time Critical Care Time: Yes Total Critical Care Time: 90 Attestation: I have personally provided critical care time. Time includes review of lab data, radiology results, discussion with consultants, and monitoring for potential decompensation. Intervention performed as documented. Discharge Plan Discharge Clinical Impression: Acute hypercapnic respiratory failure, Pneumonia, GI bleed Patient Disposition: Admitted As Inpatient Prescriptions: No Action loperamide 2 mg Capsule 2 mg PO Q4H PRN (Reason: Diarrhea) Rx Instructions: administer after each loose stool until symptoms controlled; do not exceed 8 mg per 24 hrs levetiracetam [Keppra] 250 mg Tablet 250 mg PO BID fluticasone propionate 220 mcg/actuation Hfa Aerosol Inhaler 1 puff INHALATION BID methimazole 5 mg tablet 2.5 mg PO DAILY albuterol sulfate [Ventolin HFA] 90 mcg/actuation HFA aerosol inhaler 2 puff inhalation Q6H PRN (Reason: wheezing) cefuroxime axetil 500 mg tablet 500 mg PO BID 7 Days Qty: 14 0RF atorvastatin 80 mg tablet 80 mg PO BEDTIME albuterol sulfate 2.5 mg /3 mL (0.083 %) solution for nebulization 2.5 mg inhalation Q6H PRN (Reason: Shortness Of Breath Or Wheezing) glipizide 5 mg tablet extended release 24hr 5 mg PO DAILY clopidogrel 75 mg tablet 75 mg PO DAILY folic acid 400 mcg tablet 0.4 mg PO DAILY aspirin 81 mg tablet,delayed release (DR/EC) 81 mg PO DAILY acetaminophen 500 mg Tablet 500 mg PO BID cyanocobalamin (vitamin B-12) 500 mcg tablet 500 mcg PO DAILY oxybutynin chloride 5 mg tablet extended release 24hr 5 mg PO DAILY fluoxetine 20 mg capsule 20 mg PO DAILY zinc oxide 20 % Ointment 1 appl TOPICAL DAILY PRN (Reason: Wound Healing) Rx Instructions: apply to buttocks trazodone 100 mg tablet 100 mg PO BEDTIME furosemide 20 mg tablet 20 mg PO BID@0900,1700 pregabalin 150 mg capsule 150 mg PO TID cholecalciferol (vitamin D3) 25 mcg (1,000 unit) tablet 25 mcg PO DAILY metoprolol succinate 25 mg tablet extended release 24 hr 25 mg PO DAILY Print Language: Luxembourgish
--- NOTE | 2024-06-02 21:24 | PC.NURSE ---
coffee ground output noted with OG tube. MD reyes made aware. OBSx1 obtained and sent to lab.
[2024-06-02 21:38] LABS: OBS1 POSITIVE (NEGATIVE)
[2024-06-02 21:39] LABS: OBS Int Ctl Valid YES
--- NOTE | 2024-06-02 21:39 | PC.NURSE ---
pt transfer to icu with SALES TRAINEE, RT and ED PCT.
[2024-06-02] MEDS: iohexoL 350 MG/ML 100 ML INFUS..BTL 80 ML IV (22:17)
[2024-06-02 22:27] LABS: Phosphorus 3.9 mg/dL (2.7-4.5)
--- NOTE | 2024-06-02 22:32 | P.HPCC_ITS ---
History of Present Illness Date of Service: 06/02/24 Attending physician on admission: Caro Felton Chief Complaint: Seizure Ms. Hernández is a 77-year-old female residing at [facility] with a PMH significant for COPD on home O2, hx of CVA with L-sided weakness,? CHF, HTN, HLD, NIDDM2, and obesity. She is minimally verbal and non-ambulatory at baseline.? She was found by her roll coverer /HCP slouched on her couch, unresponsive, possibly having a seizure. EMS reports O2 sats in the mid 80s on her usual 2 L O2.? They gave her 1 mg intranasal Versed during transport to the ER.? On arrival to the ER, the patient was unresponsive and was being ventilated with an Ambu bag. BP was 137/54, heart rate 63. Afebrile. Laboratory data significant for hemoglobin 9.5, hematocrit 31.2, platelet 149, serum bicarb 42, BUN 26, BNP 156. VBG 7.31 106 123 54.? Urinalysis negative for UTI. Guaiac positive. Imaging:? Chest CT: Developing pneumonia bilaterally.? Head CT: No acute intracranial process. Bilateral ethmoid and left frontal sinus inflammatory changes. ABD/Pelvis CT pending. ED course: On arrival, the patient was unresponsive with pinpoint pupils and was intubated for airway protection.? She received 2 L normal saline, 1.5 g Keppra, ceftriaxone 1 g, azithromycin 500 mg.?Propofol and midazolam drips were initiated.?Occult guaiac was reported as positive as patient was being transferred to the ICU. CT abdomen and pelvis obtained.? Review of Systems 2 Review of Systems: Yes unobtainable due to endotracheal tube PMFSH Past Medical History Medical History Non-insulin dependent type 2 diabetes mellitus COPD (chronic obstructive pulmonary disease) Peripheral neuropathy HLD (hyperlipidemia) CVA (cerebral vascular accident) Heart failure, unspecified Social History Social History Household Members: Unknown / Unable to assess Housing: Assisted Living Facility Do you presently have visiting nurse or other home services: Yes Unable to assess alcohol history related to: Unknown Alcohol intake: former Comment: bedbound Patient Tobacco Use Status: Never used Tobacco Advance Directives: Yes Advance Directives on File: Yes Advance Directives Date on File: 09/15/23 service: No Meds Allergies Allergy/AdvReac Type Severity Reaction Status Date / Time Penicillins Allergy Unknown Verified 06/02/24 19:42 piroxicam Allergy Unknown Verified 06/02/24 19:42 shrimp Allergy Hives Verified 06/02/24 19:42 Sulfa (Sulfonamide Allergy Unknown Verified 06/02/24 19:42 Antibiotics) Active Medications: Current Medications Albuterol/Ipratropium (Albuterol/Iprat 2.5/0.5mg 3 Ml Ampul.Neb) 3 ml INHALE RQ4H MARC Propofol (Diprivan) 1,000 mg in 100 mls @ 0 mls/hr IVCONT .Q0M MARC; Protocol Last Titration: 06/02/24 20:55 Dose: 30 mcg/kg/min, 14.17 mls/hr Midazolam HCl (Versed) 50 mg in 50 mls @ 4 mls/hr IVCONT .[id number] MARC Last Infusion: 06/02/24 21:56 Dose: 4 mg/hr, 4 mls/hr Azithromycin 500 mg/ Sodium (Chloride) 250 mls @ 125 mls/hr IV ONCE ONE Stop: 06/02/24 23:08 Last Admin: 06/02/24 21:18 Dose: 125 mls/hr Propofol (Diprivan) 1,000 mg in 100 mls @ 0 mls/hr IVCONT .Q0M MARC; Protocol Sodium Chloride (Ns) 1,000 mls @ 999 mls/hr IVCONT .Q1H1M ONE Stop: 06/02/24 22:57 Vancomycin HCl (Vancomycin/Ns) 2,000 mg in 500 mls @ 250 mls/hr IV ONCE ONE Stop: 06/02/24 23:59 Cefepime HCl (Maxipime) 2 gm in 50 mls @ 100 mls/hr IV Q12H MARC Magnesium Sulfate/Dextrose (Magnesium Sulfate/D5w) 1 gm in 100 mls @ 100 mls/hr IV ONCE ONE Stop: 06/02/24 23:12 Methylprednisolone Sodium Succinate (Methylprednisolone Sod Succ 125 Mg/2 Ml Vial) 60 mg IVPUSH Q6H MARC Pantoprazole Sodium (Pantoprazole Sodium 40 Mg/10 Ml Vial) 40 mg IVPUSH BID@0630,[facility] Consult (Consult Rx Vancomycin Dosing) 1 each MISCELLANE DAILY PRN PRN Reason: Consult order Home Medications ?Medication ?Instructions ?Recorded ?Confirmed ?Last Taken ?Type acetaminophen 500 mg tablet 500 mg PO BID 08/02/23 06/03/24 Unknown History albuterol sulfate 2.5 mg/3 mL 2.5 mg inhalation Q6H PRN 08/02/23 06/03/24 Unknown History (0.083 %) solution for nebulization Shortness Of Breath Or Wheezing aspirin 81 mg tablet,delayed 81 mg PO DAILY 08/02/23 06/03/24 04/18/24 History release atorvastatin 80 mg tablet 80 mg PO BEDTIME 08/02/23 06/03/24 04/17/24 History cholecalciferol (vitamin D3) 25 25 mcg PO DAILY 08/02/23 06/03/24 04/18/24 History mcg (1,000 unit) tablet clopidogrel 75 mg tablet 75 mg PO DAILY 08/02/23 06/03/24 04/18/24 History cyanocobalamin (vitamin B-12) 500 500 mcg PO DAILY 08/02/23 06/03/24 04/18/24 History mcg tablet fluoxetine 20 mg capsule 20 mg PO DAILY 08/02/23 06/03/24 04/18/24 History folic acid 400 mcg tablet 0.4 mg PO DAILY 08/02/23 06/03/24 04/18/24 History furosemide 20 mg tablet 20 mg PO BID@0900,1700 08/02/23 06/03/24 04/18/24 History glipizide 5 mg tablet, extended 5 mg PO DAILY 08/02/23 06/03/24 04/18/24 History release 24 hr metoprolol succinate 25 mg 25 mg PO DAILY 08/02/23 06/03/24 04/18/24 History tablet,extended release 24 hr oxybutynin chloride 5 mg 5 mg PO DAILY 08/02/23 06/03/24 04/18/24 History tablet,extended release 24 hr pregabalin 150 mg capsule 150 mg PO TID 08/02/23 06/03/24 04/18/24 History trazodone 100 mg tablet 100 mg PO BEDTIME 08/02/23 06/03/24 04/17/24 History zinc oxide 20 % topical ointment 1 appl topical DAILY PRN Wound 08/02/23 06/03/24 Unknown History Healing fluticasone propionate 220 1 puff inhalation BID 09/10/23 06/03/24 04/18/24 History mcg/actuation HFA aerosol inhaler levetiracetam 250 mg tablet 250 mg PO BID 09/10/23 06/03/24 04/18/24 History (Keppra) loperamide 2 mg capsule 2 mg PO Q4H PRN Diarrhea 09/10/23 06/03/24 Unknown History albuterol sulfate 90 mcg/actuation 2 puff inhalation Q6H PRN wheezing 04/18/24 06/03/24 Unknown History aerosol inhaler (Ventolin HFA) methimazole 5 mg tablet 2.5 mg PO DAILY 04/18/24 06/03/24 04/18/24 History Physical Exam 2 Vital Signs: Vital Signs: Last Vital Signs Temp 98.2 F 06/02/24 21:04 Pulse 54 06/02/24 21:04 Resp 26 H 06/02/24 21:04 BP 114/50 L 06/02/24 21:04 Pulse Ox 95 06/02/24 21:04 O2 Del Method Mechanical Ventil ation 06/02/24 21:04 FiO2 100 06/02/24 20:55 Oxygen Flow Rate 5 06/02/24 19:42 BMI result Body Mass Index 33.9 Const: General: ill appearing Nutritional Appearance: obese O rientation/consciousness: Other orientation findings (Sedated) HEENT: Head: Yes normocephalic and Yes atraumatic General nose exam: Normal external nose present (Nares patent, septum midline, sinuses nontender bilaterally.) Face and sinus: Yes normal facial exam Eyes: Pupils: Pupils not reactive and Pupil size comments bilaterally 1 Neck: Neck: Yes supple (no thyromegaly, trachea midline.) Carotids: normal carotid upstroke Resp: Auscultation: diminished lung sounds diffuse Cardio: Jugular venous distension: no JVD Rate: bradycardic Rhythm: r egular rhythm Heart sounds: S1 normal heart sound present, S2 normal heart sound present and Murmur heart sound present systolic Peripheral pulses: P eripheral pulses 2+ throughout GI: Inspection: Yes Abdominal panniculus present Palpation (GI): Soft to palpation (nondistended.) and nontender Auscultation: normoactive bowel sounds Skin: General skin exam: no rashes or lesions noted Lesions: no lesions Rashes: no rashes Wounds: wounds noted (Stage 2) ulceration sacrum no drainage, odorous and not open Extrem: General: Yes full ROM and Yes capillary refill normal Left lower extremity: foot (peroneal nerve injury) Results Labs 06/02/24 19:34 06/02/24 19:34 Labs: Laboratory Results - last 24 hr 06/02/24 06/02/24 06/02/24 19:34 19:34 19:39 MCV 83.6 MCH 25.5 L MCHC 30.4 L RDW 14.6 Plt Count 149 L MPV 10.9 Immature Gran % (Auto) 0.3 Neut % (Auto) 64.1 Lymph % (Auto) 23.2 [place] % (Auto) 9.8 Eos % (Auto) 2.1 Baso % (Auto) 0.5 Lymph # (Auto) 1.5 [place] # (Auto) 0.6 Eos # (Auto) 0.1 Baso # (Auto) 0.0 Abs Immat Gran (auto) 0.02 Absolute Neuts (auto) 4.2 Absolute Nucleated RBC 0.000 Nucleated RBC % (auto) 0.0 PT 12.0 INR 1.0 O2 Saturation 100.0 ABG pH at Pt Temp 7.31 L ABG pCO2 at Pt Temp 106 H* ABG pO2 at Pt Temp 123 H ABG HCO3 54 H ABG Base Excess (Actual) 23.0 VBG pH VBG pCO2 VBG pO2 VBG HCO3 VBG O2 Saturation VBG Base Excess Anion Gap 13 Estim Creat Clear Calc 31.6 Estimated GFR 38 Random Glucose 107 Lactic Acid 0.6 Calcium 9.5 Phosphorus 3.9 Magnesium 2.0 Total Bilirubin 0.3 Direct Bilirubin 0.1 AST 17 ALT < 6 Alkaline Phosphatase 55 Troponin I High Sens 6.3 D B-Natriuretic Peptide 156 H Total Protein 7.8 Albumin 3.6 TSH 1.37 Cancelled Hold Yellow Top See Note Urine Color Urine Appearance Urine pH Ur Specific [place] Urine Protein Urine Glucose (UA) Urine Ketones Urine Blood Urine Nitrite Ur Leukocyte Esterase Urine RBC Urine WBC Ur Squamous Epith Cells Urine Bacteria Hyaline Casts Stool Occult Blood Urine Opiates Screen Ur Buprenorphine Scrn Ur Oxycodone Screen Urine Methadone Screen Urine Fentanyl Screen Ur Barbiturates Screen Ur Phencyclidine Scrn Ur Amphetamines Screen U Benzodiazepines Scrn Urine Cocaine Screen U Marijuana (THC) Screen Ethyl Alcohol < 10 COVID-19 (MELISSA) COVID-19 Clin Com Influenza Type A (MICHEL) Influenza Type B (MICHEL) Influenza A & B Note 06/02/24 06/02/24 06/02/24 19:49 20:22 20:29 MCV MCH MCHC RDW Plt Count MPV Immature Gran % (Auto) Neut % (Auto) Lymph % (Auto) [place] % (Auto) Eos % (Auto) Baso % (Auto) Lymph # (Auto) [place] # (Auto) Eos # (Auto) Baso # (Auto) Abs Immat Gran (auto) Absolute Neuts (auto) Absolute Nucleated RBC Nucleated RBC % (auto) PT INR O2 Saturation ABG pH at Pt Temp ABG pCO2 at Pt Temp ABG pO2 at Pt Temp ABG HCO3 ABG Base Excess (Actual) VBG pH 7.33 VBG pCO2 100 VBG pO2 47 VBG HCO3 53 H VBG O2 Saturation 69.0 VBG Base Excess 22.5 Anion Gap Estim Creat Clear Calc Estimated GFR Random Glucose Lactic Acid Calcium Phosphorus Magnesium Total Bilirubin Direct Bilirubin AST ALT Alkaline Phosphatase Troponin I High Sens B-Natriuretic Peptide Total Protein Albumin TSH Hold Yellow Top Urine Color Yellow Urine Appearance Clear Urine pH 6.0 Ur Specific [place] 1.010 Urine Protein Negative Urine Glucose (UA) Negative Urine Ketones Negative Urine Blood Trace H Urine Nitrite Negative Ur Leukocyte Esterase Negative Urine RBC 6-10 H Urine WBC 0-5 Ur Squamous Epith Cells 6-10 Urine Bacteria None Seen Hyaline Casts 3-5 Stool Occult Blood Urine Opiates Screen Not Detected Ur Buprenorphine Scrn Not Detected Ur Oxycodone Screen Not Detected Urine Methadone Screen Not Detected Urine Fentanyl Screen Not Detected Ur Barbiturates Screen Not Detected Ur Phencyclidine Scrn Not Detected Ur Amphetamines Screen Not Detected U Benzodiazepines Scrn POSITIVE H Urine Cocaine Screen Not Detected U Marijuana (THC) Screen Not Detected Ethyl Alcohol COVID-19 (MELISSA) Negative COVID-19 Clin Com See Note Influenza Type A (MICHEL) Negative Influenza Type B (MICHEL) Negative Influenza A & B Note See Note 06/02/24 21:32 MCV MCH MCHC RDW Plt Count MPV Immature Gran % (Auto) Neut % (Auto) Lymph % (Auto) [place] % (Auto) Eos % (Auto) Baso % (Auto) Lymph # (Auto) [place] # (Auto) Eos # (Auto) Baso # (Auto) Abs Immat Gran (auto) Absolute Neuts (auto) Absolute Nucleated RBC Nucleated RBC % (auto) PT INR O2 Saturation ABG pH at Pt Temp ABG pCO2 at Pt Temp ABG pO2 at Pt Temp ABG HCO3 ABG Base Excess (Actual) VBG pH VBG pCO2 VBG pO2 VBG HCO3 VBG O2 Saturation VBG Base Excess Anion Gap Estim Creat Clear Calc Estimated GFR Random Glucose Lactic Acid Calcium Phosphorus Magnesium Total Bilirubin Direct Bilirubin AST ALT Alkaline Phosphatase Troponin I High Sens B-Natriuretic Peptide Total Protein Albumin TSH Hold Yellow Top Urine Color Urine Appearance Urine pH Ur Specific [place] Urine Protein Urine Glucose (UA) Urine Ketones Urine Blood Urine Nitrite Ur Leukocyte Esterase Urine RBC Urine WBC Ur Squamous Epith Cells Urine Bacteria Hyaline Casts Stool Occult Blood POSITIVE Urine Opiates Screen Ur Buprenorphine Scrn Ur Oxycodone Screen Urine Methadone Screen Urine Fentanyl Screen Ur Barbiturates Screen Ur Phencyclidine Scrn Ur Amphetamines Screen U Benzodiazepines Scrn Urine Cocaine Screen U Marijuana (THC) Screen Ethyl Alcohol COVID-19 (MELISSA) COVID-19 Clin Com Influenza Type A (MICHEL) Influenza Type B (MICHEL) Influenza A & B Note Imaging Radiologist's Impressions: Impressions Chest X-Ray 06/02/24 19:35 IMPRESSION: Satisfactory positioning of ET tube and NG tube. No change in the low lung volumes. Persistent increased lung markings diffusely but more focally within the right upper lobe. Electronically signed by: Darron Michel MD 06/02/2024 09:18 PM Floxx RP Chest CT 06/02/24 20:02 IMPRESSION: No acute intracranial process seen. Bilateral ethmoid and left frontal sinus inflammatory changes. Patchy groundglass opacities in both upper lobes and lower lobes likely developing infiltrates. Endotracheal tube tip is at the origin of right bronchus and needs to be withdrawn at least by 3 to 5 cm. Enteric tube tip is in the stomach. Distal end is not the [id number]. Elliptical thick wall collection left breast anterior to the pectoralis major question seroma from previous removal of augmented breasts, old hematoma or postsurgical changes. Electronically signed by: Washington Ortiz MD 06/02/2024 09:19 PM EST RP Chest X-Ray 06/02/24 20:05 IMPRESSION: Satisfactory positioning of ET tube and NG tube. No change in the low lung volumes. Persistent increased lung markings diffusely but more focally within the right upper lobe. Electronically signed by: Darron Michel MD 06/02/2024 09:18 PM EST RP Head CT 06/02/24 20:34 IMPRESSION: No acute intracranial process seen. Bilateral ethmoid and left frontal sinus inflammatory changes. Patchy groundglass opacities in both upper lobes and lower lobes likely developing infiltrates. Endotracheal tube tip is at the origin of right bronchus and needs to be withdrawn at least by 3 to 5 cm. Enteric tube tip is in the stomach. Distal end is not the [id number]. Elliptical thick wall collection left breast anterior to the pectoralis major question seroma from previous removal of augmented breasts, old hematoma or postsurgical changes. Electronically signed by: Washington Ortiz MD 06/02/2024 09:19 PM EST RP Assessment and Plan (1) Acute hypercapnic respiratory failure: Status: Acute (2) Pneumonia: Qualifiers: Aspiration pneumonia type: unspecified Laterality: unspecified laterality Lung location: unspecified part of lung Pneumonia type: aspiration pneumonia Qualified Code(s): J69.0 - Pneumonitis due to inhalation of food and vomit Status: Acute (3) GI bleed: Qualifiers: GI bleed type/associated pathology: unspecified gastrointestinal hemorrhage type Qualified Code(s): K92.2 - Gastrointestinal hemorrhage, unspecified Status: Acute (4) Seizure: Status: Acute Plan 77-year-old female residing at [facility] with a PMH significant for COPD on home O2, hx of CVA with L-sided weakness, CHF, HTN, HLD, NIDDM2, and obesity admitted for management of acute respiratory failure and GI bleed. Neuro: Unresponsive. Seizure activity reported possibly caused by acute respiratory failure. Keppra level pending. Appreciate neurology services.? Cardiac: Hemodynamically stable Pulmonary: Acute respiratory failure, developing pneumonia. Intubated for airway protection. Empiric antibiotics, DuoNebs, steroids. GI: Guaiac-positive. Abdominal CT pending. PPI. Monitor output from OGT.?Appreciate gastroenterology services.?? Renal:? No acute issues Endo:? Underlying DM2. SS insulin per protocol. Heme/Onc: Chronic anemia, at baseline. Clopidogrel held.? ID: Possible pneumonia, intra-abdominal infection. Continue empiric antibiotics. Cultures pending. Prophylaxis: pneumatic hoses Diet:? NPO Patient's care was discussed in detail with Dr. Felton.? She is aware of all the above as well as the plan of care for this patient. Total time managing care of this patient today: 75 minutes.
[2024-06-02] MEDS: Pantoprazole Sodium 40 MG/10 ML VIAL IVPUSH (23:08)
[2024-06-02] MEDS: methylPREDNISolone Sod Succ 125 MG/2 ML VIAL IVPUSH (23:08)
[2024-06-02] MEDS: Magnesium Sulfate/D5W 1 GM/100 ML PIGGYBACK IV (23:08)
[2024-06-02 23:47] LABS: Glucose, Whole Blood 148 mg/dL (60-115)
[2024-06-03] VITALS (35 sets, daily range): BP systolic 102–135; BP diastolic 38–67; PULSE 9–106; RESP 13–26; TEMP 34.7–37.6; O2SAT 89–100; BMI 34.1
[2024-06-03] MEDS: vancomycin/NS 2,000 MG/500 ML PLAST..BAG 250 MG IV (00:07)
[2024-06-03] MEDS: propofoL 1,000 MG/100 ML VIAL 23.61 MG IVCONT (00:13)
[2024-06-03] MEDS: cefEPime HCl/D5W 2 GM/50 ML PIGGYBACK IV (00:13)
[2024-06-03] MEDS: Albuterol/Iprat 2.5/0.5MG 3 ML AMPUL.NEB INHALE ×6 (00:15→21:08)
--- NOTE | 2024-06-03 01:39 | HO.SKINPHOTO ---
Location: Bilateral Coccyx Category: Pressure Stage: II
[2024-06-03] MEDS: Midazolam HCl/NS 50 MG/50 ML PLAST..BAG IVCONT (03:03)
[2024-06-03] MEDS: propofoL 1,000 MG/100 ML VIAL 14.17 MG IVCONT (04:10)
[2024-06-03] MEDS: methylPREDNISolone Sod Succ 125 MG/2 ML VIAL 60 MG IVPUSH (04:10)
[2024-06-03] MEDS: Pantoprazole Sodium 40 MG/10 ML VIAL IVPUSH ×2 (05:26→15:29)
[2024-06-03 05:31] LABS: VBG Base Excess 12.6 mmol/L; VBG HCO3 33 mmol/L (22-26); VBG pCO2 29 mmHg; VBG pH 7.66 (7.32-7.43); VBG pO2 49 mmHg
--- NOTE | 2024-06-03 05:31 | PC.NURSE ---
Pt admitted to ICU from ED at approx 2215. Upon initial assessment- pt sedated on propofol/versed gtts, titrated down as tolerated. Afebrile. On arrival, SB on tele, HR down to 50s but currently NSR/ST 90-100s. SBP > 90, MAP > 65, given 1L NS IV bolus. ETT #7.5, 22 cm at lip. On ACVC+ settings. Small amount of bloody secretions orally and via in-line. OGT clamped but with small amount of coffee ground output. Curry in place, UOP as charted. No BM. ?Stage II PI to B/L coccyx, present on arrival, foam dressing applied- see skin photo/note. Repositioned in bed q2hr with wedges. Bed locked in lowest position, alarm on.
[2024-06-03 05:42] LABS: Venous Blood Gas Refer to POC result
[2024-06-03 05:50] LABS: VBG Base Excess 13.8 mmol/L; VBG HCO3 35 mmol/L (22-26); VBG pCO2 31 mmHg; VBG pH 7.65 (7.32-7.43); VBG pO2 49 mmHg
[2024-06-03 05:56] LABS: Basophils Percent Auto 0.1 % (0-2); Hematocrit 30.9 % (37.0-47.0); Hemoglobin 9.4 g/dl (12.0-16.0); Imm Gran Abs Auto 0.03 X10*3/uL (0.00-0.03); Imm Gran Pct Auto 0.4 % (0.0-0.4); Lymphocytes Absolute Auto 0.4 X10*3/uL (1.2-4.9); Lymphocytes Percent Auto 5.5 % (20-40); MANUAL DIFF FLAG SCAN; Mean Corpuscular HGB Conc 30.4 g/dl (31.0-35.0); Mean Corpuscular Hemoglobin 25.4 pg (27.0-33.0); Mean Corpuscular Volume 83.5 fL (80.0-98.0); Monocytes Absolute Auto 0.1 X10*3/uL (0.1-1.2); Monocytes Percent Auto 1.6 % (2-11); Neutrophils Absolute Auto 6.8 x10*3/uL (2.0-8.3); Neutrophils Percent Auto 92.4 % (45-73); Platelet Count 134 X10*3/uL (160-400); Red Cell Distribution Width 14.6 % (11.0-16.0); SCAN SMEAR FLAG 1; White Blood Count 7.3 X10*3/uL (4.8-10.8)
[2024-06-03 06:12] LABS: SLIDE REVIEW VERIFIED
[2024-06-03 06:21] LABS: Albumin Level 3.3 g/dL (3.5-5.0); Anion Gap 19 (12-20); Blood Urea Nitrogen 23 mg/dL (9-16); Calcium 9.1 mg/dL (8.4-10.2); Carbon Dioxide 28 mmol/L (22-29); Chloride 100 mmol/L (96-108); Creatinine Clr Calc Pharmacy 38.2; Estimated Glomerular Filt Rate 47; Glucose Random 183 mg/dL (60-115); Phosphorus 0.9 mg/dL (2.7-4.5); Potassium 3.5 mmol/L (3.3-5.1); Sodium 143 mmol/L (135-145)
--- NOTE | 2024-06-03 06:48 | PHA.PROG ---
Admission Date/Time: June 02, 2024 21:25 Indication: OTHER Weight in k.1 kg Adjusted body weight in Kg: [place] body weight in Kg: Obesity Dosing Indication % IBW: Serum Creatinine - Last 168 Hours 06/02/24 06/03/24 19:34 05:20 Creatinine 1.36 1.13 Estimated CrCl and GFR - Last 168 Hours 06/02/24 06/03/24 19:34 05:20 Estim Creat Clear Calc 31.6 38.2 Estimated GFR 38 47 Vancomycin Loading Dose: 2000 MG Current Vancomycin Dosing Regimen: 1250 MG Q24H Vancomycin Monitoring using AUC goal of 400 - 600 range with trough as surrogate marker: ZOJ=176 TROUGH=16.9 Date and Time for next Vancomycin Level to be drawn: 06/04/2024 @2100 Pharmacist Comments on Vancomycin Plan: Vancomycin dosing will take advantage of [employer] as a clinical decision support tool that uses Bayesian modeling to calculate individual patient's pharmacokinetic parameters and forecast the patient's drug concentration time course with the target goal AUC 24 range of 400 - 600 mg/L/hr.
[2024-06-03] MEDS: Potassium Phosphate/NS 15 MMOL/250 ML PLAST..BAG 62.5 MMOL IV ×4 (07:25→19:52)
[2024-06-03] MEDS: 0.9 % Sodium Chloride Flush 3 ML SYRINGE IVFLUSH ×2 (07:30→15:19)
[2024-06-03] MEDS: Chlorhexidine Gluc Oral Rinse 15 ML MOUTHWASH BUCCAL (09:21)
--- NOTE | 2024-06-03 09:52 | MHC.CLN ---
PT IS INTUBATED AND SEDATED PT WITH INCREASED NUTRITION RISK R/T PRESSURE INJURY CURRENTLY NPO IF TF NEEDED; RECOMMEND PROMOTE AT 55ML/HR TO PROVIDE 1320KCALS (1694KCALS WITH SEDATION; 30KCALS/KG BASED ON CMW), 82.5G PROTEIN (1.5G/KG), 1107ML FREE WATER FROM FORMULA MONITOR TOLERANCE AND LYTES FOLLOWING FOR DIET ADVANCEMENT SEE ALSO FULL CLINICAL NUTRITION ASSESSMENT
[2024-06-03] MEDS: levoFLOXacin/D5W 750 MG/150 ML PIGGYBACK 100 MG IV (09:55)
--- NOTE | 2024-06-03 10:12 | PM.CCPN ---
Subjective Subjective Date of Service: 06/03/24 Interval History: 7-year-old lady with underlying COPD on 2 L O2 prior CVA with residual left-sided weakness, heart failure, seizure disorder, diabetes mellitus, minimally verbal and non ambulatory at baseline admitted on 06/02/2024 with hypoxia and hypercapnia requiring intubation and ventilatory support. Also noted to be stool guaiac positive with CT abdomen showing possible bleed around ileocecal valve. Evaluated by gastroenterology service with no plans for intervention at this time. Patient also had possible seizure. No events overnight. FiO2 requirements improved. Critical Care Time (minutes): 60 Physical Exam Vital Signs: Vital Signs: Last Vital Signs Temp 98.8 F 06/03/24 09:00 Pulse 102 H 06/03/24 09:00 Resp 13 06/03/24 09:00 BP 115/54 L 06/03/24 09:00 Pulse Ox 100 06/03/24 09:00 O2 Del Method Mechanical Ventil ation 06/03/24 09:00 FiO2 21 06/03/24 09:00 Oxygen Flow Rate 5 06/02/24 19:42 BMI result Body Mass Index 34.1 Const: General: no acute distress and other (Sedated on the vent) Eyes: Sclerae: sclerae normal EOM: EOMs intact bilaterally Neck: Neck: Yes no lymphadenopathy, Yes trachea midline and Yes supple Resp: Auscultation: crackles (Basilar) Cardio: Rate: tachycardic Rhythm: regular rhythm Heart sounds: no gallops, no murmurs and no rubs GI: Palpation (GI): Soft to palpation and Other GI palpation findings present ( Nontender) Auscultation: normal bowel sounds Extrem: General: No clubbing, No cyanosis and Yes edema (Trace bilateral) Objective Data Labs 06/03/24 05:20 06/03/24 05:20 Labs: Laboratory Results - last 24 hr 06/02/24 06/02/24 06/02/24 19:34 19:34 19:39 WBC 6.6 RBC 3.73 L Hgb 9.5 L Hct 31.2 L MCV 83.6 MCH 25.5 L MCHC 30.4 L RDW 14.6 Plt Count 149 L MPV 10.9 Immature Gran % (Auto) 0.3 Neut % (Auto) 64.1 Lymph % (Auto) 23.2 [place] % (Auto) 9.8 Eos % (Auto) 2.1 Baso % (Auto) 0.5 Lymph # (Auto) 1.5 [place] # (Auto) 0.6 Eos # (Auto) 0.1 Baso # (Auto) 0.0 Abs Immat Gran (auto) 0.02 Absolute Neuts (auto) 4.2 Absolute Nucleated RBC 0.000 Nucleated RBC % (auto) 0.0 Smear Tech's Comments PT 12.0 INR 1.0 O2 Saturation 100.0 ABG pH at Pt Temp 7.31 L ABG pCO2 at Pt Temp 106 H* ABG pO2 at Pt Temp 123 H ABG HCO3 54 H ABG Base Excess (Actual) 23.0 VBG pH VBG pCO2 VBG pO2 VBG HCO3 VBG O2 Saturation VBG Base Excess Sodium 144 Potassium 4.7 Chloride 94 L Carbon Dioxide 42 H* Anion Gap 13 BUN 26 H Creatinine 1.36 Estim Creat Clear Calc 31.6 Estimated GFR 38 POC Glucose Random Glucose 107 Lactic Acid 0.6 Calcium 9.5 Phosphorus 3.9 Magnesium 2.0 Total Bilirubin 0.3 Direct Bilirubin 0.1 AST 17 ALT < 6 Alkaline Phosphatase 55 Troponin I High Sens 6.3 D B-Natriuretic Peptide 156 H Total Protein 7.8 Albumin 3.6 TSH 1.37 Cancelled Hold Yellow Top See Note Urine Color Urine Appearance Urine pH Ur Specific [place] Urine Protein Urine Glucose (UA) Urine Ketones Urine Blood Urine Nitrite Ur Leukocyte Esterase Urine RBC Urine WBC Ur Squamous Epith Cells Urine Bacteria Hyaline Casts Stool Occult Blood Urine Opiates Screen Ur Buprenorphine Scrn Ur Oxycodone Screen Urine Methadone Screen Urine Fentanyl Screen Ur Barbiturates Screen Ur Phencyclidine Scrn Ur Amphetamines Screen U Benzodiazepines Scrn Urine Cocaine Screen U Marijuana (THC) Screen Ethyl Alcohol < 10 COVID-19 (MELISSA) COVID-19 Clin Com Influenza Type A (MICHEL) Influenza Type B (MICHEL) Influenza A & B Note 06/02/24 06/02/24 06/02/24 19:49 20:22 20:29 WBC RBC Hgb Hct MCV MCH MCHC RDW Plt Count MPV Immature Gran % (Auto) Neut % (Auto) Lymph % (Auto) [place] % (Auto) Eos % (Auto) Baso % (Auto) Lymph # (Auto) [place] # (Auto) Eos # (Auto) Baso # (Auto) Abs Immat Gran (auto) Absolute Neuts (auto) Absolute Nucleated RBC Nucleated RBC % (auto) Smear Tech's Comments PT INR O2 Saturation ABG pH at Pt Temp ABG pCO2 at Pt Temp ABG pO2 at Pt Temp ABG HCO3 ABG Base Excess (Actual) VBG pH 7.33 VBG pCO2 100 VBG pO2 47 VBG HCO3 53 H VBG O2 Saturation 69.0 VBG Base Excess 22.5 Sodium Potassium Chloride Carbon Dioxide Anion Gap BUN Creatinine Estim Creat Clear Calc Estimated GFR POC Glucose Random Glucose Lactic Acid Calcium Phosphorus Magnesium Total Bilirubin Direct Bilirubin AST ALT Alkaline Phosphatase Troponin I High Sens B-Natriuretic Peptide Total Protein Albumin TSH Hold Yellow Top Urine Color Yellow Urine Appearance Clear Urine pH 6.0 Ur Specific [place] 1.010 Urine Protein Negative Urine Glucose (UA) Negative Urine Ketones Negative Urine Blood Trace H Urine Nitrite Negative Ur Leukocyte Esterase Negative Urine RBC 6-10 H Urine WBC 0-5 Ur Squamous Epith Cells 6-10 Urine Bacteria None Seen Hyaline Casts 3-5 Stool Occult Blood Urine Opiates Screen Not Detected Ur Buprenorphine Scrn Not Detected Ur Oxycodone Screen Not Detected Urine Methadone Screen Not Detected Urine Fentanyl Screen Not Detected Ur Barbiturates Screen Not Detected Ur Phencyclidine Scrn Not Detected Ur Amphetamines Screen Not Detected U Benzodiazepines Scrn POSITIVE H Urine Cocaine Screen Not Detected U Marijuana (THC) Screen Not Detected Ethyl Alcohol COVID-19 (MELISSA) Negative COVID-19 Clin Com See Note Influenza Type A (MICHEL) Negative Influenza Type B (MICHEL) Negative Influenza A & B Note See Note 06/02/24 06/02/24 06/03/24 21:32 23:43 05:20 WBC 7.3 RBC 3.70 L Hgb 9.4 L Hct 30.9 L MCV 83.5 MCH 25.4 L MCHC 30.4 L RDW 14.6 Plt Count 134 L MPV 12.0 Immature Gran % (Auto) 0.4 Neut % (Auto) 92.4 H Lymph % (Auto) 5.5 L [place] % (Auto) 1.6 L Eos % (Auto) 0.0 Baso % (Auto) 0.1 Lymph # (Auto) 0.4 L [place] # (Auto) 0.1 Eos # (Auto) 0.0 Baso # (Auto) 0.0 Abs Immat Gran (auto) 0.03 Absolute Neuts (auto) 6.8 Absolute Nucleated RBC 0.000 Nucleated RBC % (auto) 0.0 Smear Tech's Comments VERIFIED PT INR O2 Saturation ABG pH at Pt Temp ABG pCO2 at Pt Temp ABG pO2 at Pt Temp ABG HCO3 ABG Base Excess (Actual) VBG pH 7.66 H* VBG pCO2 29 VBG pO2 49 VBG HCO3 33 H VBG O2 Saturation 91.0 VBG Base Excess 12.6 Sodium 143 Potassium 3.5 D Chloride 100 Carbon Dioxide 28 Anion Gap 19 BUN 23 H Creatinine 1.13 Estim Creat Clear Calc 38.2 Estimated GFR 47 POC Glucose 148 H Random Glucose 183 H Lactic Acid Calcium 9.1 Phosphorus 0.9 L* Magnesium 2.0 Total Bilirubin Direct Bilirubin AST ALT Alkaline Phosphatase Troponin I High Sens B-Natriuretic Peptide Total Protein Albumin 3.3 L TSH Hold Yellow Top Urine Color Urine Appearance Urine pH Ur Specific [place] Urine Protein Urine Glucose (UA) Urine Ketones Urine Blood Urine Nitrite Ur Leukocyte Esterase Urine RBC Urine WBC Ur Squamous Epith Cells Urine Bacteria Hyaline Casts Stool Occult Blood POSITIVE Urine Opiates Screen Ur Buprenorphine Scrn Ur Oxycodone Screen Urine Methadone Screen Urine Fentanyl Screen Ur Barbiturates Screen Ur Phencyclidine Scrn Ur Amphetamines Screen U Benzodiazepines Scrn Urine Cocaine Screen U Marijuana (THC) Screen Ethyl Alcohol COVID-19 (MELISSA) COVID-19 Clin Com Influenza Type A (MICHEL) Influenza Type B (MICHEL) Influenza A & B Note 06/03/24 05:40 WBC RBC Hgb Hct MCV MCH MCHC RDW Plt Count MPV Immature Gran % (Auto) Neut % (Auto) Lymph % (Auto) [place] % (Auto) Eos % (Auto) Baso % (Auto) Lymph # (Auto) [place] # (Auto) Eos # (Auto) Baso # (Auto) Abs Immat Gran (auto) Absolute Neuts (auto) Absolute Nucleated RBC Nucleated RBC % (auto) Smear Tech's Comments PT INR O2 Saturation ABG pH at Pt Temp ABG pCO2 at Pt Temp ABG pO2 at Pt Temp ABG HCO3 ABG Base Excess (Actual) VBG pH 7.65 H* VBG pCO2 31 VBG pO2 49 VBG HCO3 35 H VBG O2 Saturation 88.0 VBG Base Excess 13.8 Sodium Potassium Chloride Carbon Dioxide Anion Gap BUN Creatinine Estim Creat Clear Calc Estimated GFR POC Glucose Random Glucose Lactic Acid Calcium Phosphorus Magnesium Total Bilirubin Direct Bilirubin AST ALT Alkaline Phosphatase Troponin I High Sens B-Natriuretic Peptide Total Protein Albumin TSH Hold Yellow Top Urine Color Urine Appearance Urine pH Ur Specific [place] Urine Protein Urine Glucose (UA) Urine Ketones Urine Blood Urine Nitrite Ur Leukocyte Esterase Urine RBC Urine WBC Ur Squamous Epith Cells Urine Bacteria Hyaline Casts Stool Occult Blood Urine Opiates Screen Ur Buprenorphine Scrn Ur Oxycodone Screen Urine Methadone Screen Urine Fentanyl Screen Ur Barbiturates Screen Ur Phencyclidine Scrn Ur Amphetamines Screen U Benzodiazepines Scrn Urine Cocaine Screen U Marijuana (THC) Screen Ethyl Alcohol COVID-19 (MELISSA) COVID-19 Clin Com Influenza Type A (MICHEL) Influenza Type B (MICHEL) Influenza A & B Note Progress Note: A&P Assessment and plan (1) Acute hypercapnic respiratory failure: Status: Acute (2) Hypoxia: Status: Acute (3) COPD (chronic obstructive pulmonary disease): Status: Acute Plan Assessment: 77-year-old lady admitted with acute on chronic hypoxic and hypercapnic respiratory failure requiring ventilatory support, with possible preceding aspiration event, and possible seizure activity Plan: Neuro: No recurrence of seizures. Underlying seizure disorder. Continue on Keppra. Cardiac: No acute issues. Underlying history of congestive heart failure. Pulmonary: Acute on chronic hypoxic and hypercapnic respiratory failure likely secondary to an aspiration event requiring intubation and ventilatory support. Underlying history of COPD or 2 L of supplemental oxygen. Renal: No acute issues. Endo: No acute issues. GI: Possible acute/subacute GI bleed from the area around the cecal valve. Evaluated by gastroenterology service, hemoglobin stable, no plans for intervention at this time. ID: Empiric coverage for pulmonary aspiration pneumonia versus pneumonitis. Heme/Onc: No acute issues. Psych: No acute issues. Miscellaneous: No acute issues. Prophylaxis: Heparin, ppi Diet: NPO Critical care time spent: 60 minutes Quality Stroke Does the patient have a stroke diagnosis?: No VTE Prior VTE?: No VTE Risk Level:: Medical - moderate - high VTE Device Contraindication: N/A - Device Ordered VTE Drug Contraindication: N/A - Med Ordered
--- NOTE | 2024-06-03 10:48 | P.CDIM_ITS ---
PROVIDER RESPONSE TEXT: To clarify, the appropriate diagnosis supported by the clinical indicators: Diastolic: Chronic QUERY TEXT: PHYSICIAN'S DOCUMENTATION REQUEST Date of Query: 06/03/2024 10:29 AM EST Patient Name: Rosi Hernández Admit Date: 06/03/2024 Dear Romaine Lazaro MD, A review of the medical record indicates additional documentation may be needed. Please review below and update the documentation accordingly. Clinical Indicators: H&P: History of CHF Home medication: Furosemide 20mg PO BNP 156 H Please provide further specificity regarding the most likely type of CHF: Systolic Please specify if Acute, Chronic, or Acute on chronic, or Unable to determine Diastolic Please specify if Acute, Chronic, or Acute on chronic, or Unable to determine Combined Systolic/Diastolic Please specify if Acute, Chronic, or Acute on chronic, or Unable to determine Other (explain) Clinically unable to determine (explain) Thank you, Juliana Cartwright, CCS, CDIS Use of terms such as suspected, likely, concern for, or probable (associated with a specific diagnosi s that is being evaluated, monitored, or treated as if it exists) are acceptable and can be coded in the inpatient se tting, when documented at the time of discharge. Please use your independent medical judgment in providing your response. THIS QUERY IS PART OF THE PERMANENT MEDICAL RECORD
--- NOTE | 2024-06-03 10:48 | P.CDIM_ITS ---
PROVIDER RESPONSE TEXT: To clarify, the appropriate diagnosis supported by the clinical indicators: Pressure ulcer coccyx Stage 2 QUERY TEXT: PHYSICIAN'S DOCUMENTATION REQUEST Date of Query: 06/03/2024 10:32 AM EST Patient Name: Rosi Hernández Admit Date: 06/03/2024 Dear Romaine Lazaro MD, A review of the medical record indicates additional documentation may be needed. Please review below and update the documentation accordingly. Clinical Indicators: Wound assessment notes 06/03 - Pressure ulcer bilateral coccyx Stage 2 Foam dressing/ Based on the above, could you please provide further information regarding the ulcer/wound/injury: Pressure ulcer coccyx Stage 2 Other form of ulceration diabetic, traumatic, arterial, venous etc. Other (explain) Clinically unable to determine (explain) Thank you, Juliana Cartwright, CCS, CDIS Use of terms such as suspected, likely, concern for, or probable (associated with a specific diagnosi s that is being evaluated, monitored, or treated as if it exists) are acceptable and can be coded in the inpatient se tting, when documented at the time of discharge. Please use your independent medical judgment in providing your response. THIS QUERY IS PART OF THE PERMANENT MEDICAL RECORD
[2024-06-03 11:19] LABS: Glucose, Whole Blood 243 mg/dL (60-115)
[2024-06-03] MEDS: Insulin Lispro 100 UNIT/ML 3 ML VIAL SUBCUT (11:20)
--- NOTE | 2024-06-03 11:56 | PHA.MEDREC ---
Pharmacy Consult ? Medication Reconciliation Pharmacy has reviewed the medication reconciliation done by nursing. Spoke to HCP Mariely to confirm med list. Mariely
--- NOTE | 2024-06-03 11:58 | PHA.MEDREC ---
Addendum entered by Onelia Metzger RPh 06/03/24 12:15: reviewed by [facility]. Original Note: Pharmacy Consult ? Medication Reconciliation Pharmacy has reviewed the medication reconciliation done by nursing. Spoke to HCP Mariely to confirm med list. Mariely stated that patient was just here 04/23/24 with no changes to medications. Utilized the discharge packet from 04/24/24 to confirm med list.
--- NOTE | 2024-06-03 13:16 | P.CNGI_ITS ---
History of Present Illness Data of Consult Service Date: 06/03/24 Primary Care Provider: Cliff Walsh MD HPI Reason for consult: anemia 78-year-old female residing at [facility] with hx of COPD on home O2, hx of CVA with L-sided weakness,? CHF, HTN, HLD, NIDDM2, and obesity who I am seeing for assessment for anemia Patient is intubated and non responsive, also apparently same at baseline and is non ambulatory She was found by caregiver, unresponsive and down, uncertain if she had been having a seizure prior to this. SHe was intubated due to low O2 sats and unresponsiveness. Imaging revealed developing lung infitrates and possible right sided bleeding with extravasation of contrast. Her HGB has been stable at 9.5 g/dl -similar to historical pre admission labs. Per nursing staff there has not been any overt GI bleeding, no melena or hematuria. ?No coffee ground returns. Review of Systems 2 Review of Systems: Yes unobtainable due to endotracheal tube and Unobtainable due to mental condition PMFSH Past Medical History Medical History (Updated 06/03/24 @ 10:15 by Romaine Lazaro MD) Non-insulin dependent type 2 diabetes mellitus COPD (chronic obstructive pulmonary disease) Peripheral neuropathy HLD (hyperlipidemia) CVA (cerebral vascular accident) Heart failure, unspecified Social History Social History Household Members: None Housing[facility] Do you presently have visiting nurse or other home services: Yes Unable to assess alcohol history related to: Unknown Alcohol intake: former Comment: bedbound Patient Tobacco Use Status: Never used Tobacco Use of substances other than those prescribed or required for medical reasons: Unknown Currently Displaying Signs/Symptoms of Drug Intoxication Withdrawal: No Advance Directives: Yes Advance Directives on File: Yes Advance Directives Date on File: 09/15/23 Recently lost weight without trying: Unsure Nutrition Risks: On aspiration precautions Patient : No service: No Meds Allergies Allergy/AdvReac Type Severity Reaction Status Date / Time Penicillins Allergy Unknown Verified 06/02/24 19:42 piroxicam Allergy Unknown Verified 06/02/24 19:42 shrimp Allergy Hives Verified 06/02/24 19:42 Sulfa (Sulfonamide Allergy Unknown Verified 06/02/24 19:42 Antibiotics) Active Medications: Current Medications Albuterol/Ipratropium (Albuterol/Iprat 2.5/0.5mg 3 Ml Ampul.Neb) 3 ml INHALE RQ4H [facility] Last Admin: 06/03/24 11:31 Dose: 3 ml Glucose (Glucose Gel 15 Gm Gel..Gram.) 15 gm PO Q15M PRN; Protocol PRN Reason: per Hypoglycemia Standing Ord. Propofol (Diprivan) 1,000 mg in 100 mls @ 0 mls/hr IVCONT .Q0M [facility]; Protocol Last Titration: 06/03/24 10:57 Dose: Infused Dextrose (D10) 250 mls @ 750 mls/hr IV Q15M PRN; Protocol PRN Reason: per Hypoglycemia Standing Ord. Potassium Phosphate (Kphos) 15 mmol in 250 mls @ 62.5 mls/hr IV Q4H [facility] Stop: 06/03/24 23:59 Last Admin: 06/03/24 11:25 Dose: 62.5 mls/hr Levofloxacin (Levaquin) 750 mg in 150 mls @ 100 mls/hr IV Q48H [facility] Last Infusion: 06/03/24 11:30 Dose: Infused Insulin Human Lispro (Insulin Lispro 100 Unit/Ml 3 Ml Vial) 0 unit SUBCUT Q6H [facility]; Protocol Last Admin: 06/03/24 11:20 Dose: 4 unit Methylprednisolone Sodium Succinate (Methylprednisolone Sod Succ 125 Mg/2 Ml Vial) 40 mg IVPUSH DAILY [facility] Pantoprazole Sodium (Pantoprazole Sodium 40 Mg/10 Ml Vial) 40 mg IVPUSH BID@0630,1630 [facility] Last Admin: 06/03/24 05:26 Dose: 40 mg Sodium Chloride (0.9 % Sodium Chloride Flush 3 Ml Syringe) 3 ml IVFLUSH QSHIFT [facility] Last Admin: 06/03/24 07:30 Dose: 3 ml Home Medications ?Medication ?Instructions ?Recorded ?Confirmed ?Last Taken ?Type acetaminophen 500 mg tablet 500 mg PO BID 08/02/23 06/03/24 06/02/24 History albuterol sulfate 2.5 mg/3 mL 2.5 mg inhalation Q6H PRN 08/02/23 06/03/24 Unknown History (0.083 %) solution for nebulization Shortness Of Breath Or Wheezing aspirin 81 mg tablet,delayed 81 mg PO DAILY 08/02/23 06/03/24 06/02/24 History release atorvastatin 80 mg tablet 80 mg PO BEDTIME 08/02/23 06/03/24 06/02/24 History cholecalciferol (vitamin D3) 25 25 mcg PO DAILY 08/02/23 06/03/24 06/02/24 History mcg (1,000 unit) tablet clopidogrel 75 mg tablet 75 mg PO DAILY 08/02/23 06/03/24 06/02/24 History cyanocobalamin (vitamin B-12) 500 500 mcg PO DAILY 08/02/23 06/03/24 06/02/24 History mcg tablet fluoxetine 20 mg capsule 20 mg PO DAILY 08/02/23 06/03/24 06/02/24 History folic acid 400 mcg tablet 0.4 mg PO DAILY 08/02/23 06/03/24 06/02/24 History furosemide 20 mg tablet 20 mg PO BID@0900,1700 08/02/23 06/03/24 06/02/24 History glipizide 5 mg tablet, extended 5 mg PO DAILY 08/02/23 06/03/24 06/02/24 History release 24 hr metoprolol succinate 25 mg 25 mg PO DAILY 08/02/23 06/03/24 06/02/24 History tablet,extended release 24 hr oxybutynin chloride 5 mg 5 mg PO DAILY 08/02/23 06/03/24 06/02/24 History tablet,extended release 24 hr pregabalin 150 mg capsule 150 mg PO TID 08/02/23 06/03/24 06/02/24 History trazodone 100 mg tablet 100 mg PO BEDTIME 08/02/23 06/03/24 06/02/24 History zinc oxide 20 % topical ointment 1 appl topical DAILY PRN Wound 08/02/23 06/03/24 Unknown History Healing fluticasone propionate 220 1 puff inhalation BID 09/10/23 06/03/24 06/02/24 History mcg/actuation HFA aerosol inhaler levetiracetam 250 mg tablet 250 mg PO BID 09/10/23 06/03/24 06/02/24 History (Keppra) loperamide 2 mg capsule 2 mg PO Q4H PRN Diarrhea 09/10/23 06/03/24 Unknown History albuterol sulfate 90 mcg/actuation 2 puff inhalation Q6H PRN wheezing 04/18/24 06/03/24 Unknown History aerosol inhaler (Ventolin HFA) methimazole 5 mg tablet 2.5 mg PO DAILY 04/18/24 06/03/24 06/02/24 History Physical Exam 2 Vital Signs: Vital Signs: Last Vital Signs Temp 99.7 F 06/03/24 13:00 Pulse 104 H 06/03/24 13:00 Resp 17 06/03/24 13:00 BP 122/57 L 06/03/24 13:00 Pulse Ox 94 06/03/24 13:00 O2 Del Method Nasal Cannula 06/03/24 13:00 O2 Flow Rate 0.5 06/03/24 13:00 FiO2 24 06/03/24 10:05 Oxygen Flow Rate 5 06/02/24 19:42 BMI result Body Mass Index 34.1 EXAM: GENERAL: The patient is obese, intubated, unresponsive VITAL SIGNS:see workflow HEENT: Nonicteric sclerae, PERRLA, EOMI. Oropharynx clear. Moist mucous membranes. Conjunctivae appear pale. No thyroid mass. CHEST: Chest wall is nontender. HEART: Regular rate and rhythm without murmurs. LUNGS: Clear to auscultation bilaterally. ABDOMEN: Soft, positive bowel sounds, nontender, no organomegaly.no flank tenderness SKIN: No rash, no excessive bruising, petechiae, or purpura. NEUROLOGIC: on vent Psych: unable to assess Results Labs 06/03/24 05:20 06/03/24 05:20 Labs: Short CBC 06/02/24 06/03/24 Range/Units 19:34 05:20 WBC 6.6 7.3 (4.8-10.8) X10*3/uL Hgb 9.5 L 9.4 L (12.0-16.0) g/dl Hct 31.2 L 30.9 L (37.0-47.0) % Plt Count 149 L 134 L (160-400) X10*3/uL BMP 06/02/24 06/03/24 19:34 05:20 Sodium 144 143 Potassium 4.7 3.5 D Chloride 94 L 100 Carbon Dioxide 42 H* 28 BUN 26 H 23 H Creatinine 1.36 1.13 Calcium 9.5 9.1 Liver Function 06/02/24 06/03/24 Range/Units 19:34 05:20 Total Bilirubin 0.3 (0.0-1.0) mg/dL Direct Bilirubin 0.1 (0.0-0.5) mg/dL AST 17 (5-31) U/L ALT < 6 (0-31) U/L Alkaline Phosphatase 55 (39-117) U/L Albumin 3.6 3.3 L (3.5-5.0) g/dL Urine 06/02/24 Range/Units 20:29 Urine Color Yellow Urine Appearance Clear Urine pH 6.0 (5.0-9.0) Ur Specific [place] 1.010 (1.005-1.025) Urine Protein Negative (Neg-Trace) mg/dL Urine Glucose (UA) Negative (Negative) mg/dL Imaging CT scan - abdomen: Attestation: I personally reviewed and interpreted this imaging study as follows: (small amount of possible contrast in right colon) Assessment and Plan (1) GI bleed: Qualifiers: GI bleed type/associated pathology: unspecified gastrointestinal hemorrhage type Qualified Code(s): K92.2 - Gastrointestinal hemorrhage, unspecified Status: Acute Plan 1/ Chronic anemia, no overt GIB but CT imaging with possible extravasation in the cecum, HGB holding at baseline ddx: AVM, colonic lesion, diverticular bleeding PLAN: 1/ Cont to monitor, would recommend IR consult in first instance if active overt GI bleeding, colonoscopy if this is not possible 2/ Consider low dose PPI and holding asprin, plavix for short time Procedures Date of Service Date of Service: 06/03/24
--- NOTE | 2024-06-03 15:05 | MHC.CM.PN ---
Pt unable to participate in CM assessment: call placed to pt's HCP, Mariely who states pt resides on the [facility]. She has 24/7 GEARCASE ASSEMBLER care through [facility], VNA for RN/PT/OT through an unknown agency, and O2 from [facility]. Pt is totally dependent for care needs, uses a steve, w/c and adjustable bed. She is alert but forgetful most of the time. Mariely states the plan is for a return to home w/existing services via BLS. IMM in chart, HCP on file and verified w/Mariely (who states she is pt's POA as well). CM to follow for finalization of d/c needs.
[2024-06-03 17:43] LABS: Glucose, Whole Blood 77 mg/dL (60-115)
[2024-06-03 23:56] LABS: Glucose, Whole Blood 112 mg/dL (60-115)
[2024-06-04] VITALS (20 sets, daily range): BP systolic 116–195; BP diastolic 42–96; PULSE 73–113; RESP 15–24; TEMP 36.1–37.4; O2SAT 91–100; BMI 34.3
[2024-06-04] MEDS: 0.9 % Sodium Chloride Flush 3 ML SYRINGE IVFLUSH ×4 (00:03→20:54)
[2024-06-04] MEDS: Albuterol/Iprat 2.5/0.5MG 3 ML AMPUL.NEB INHALE ×6 (00:46→20:38)
[2024-06-04 00:53] LABS: Venous Blood Gas Refer to POC result
[2024-06-04 00:54] LABS: VBG Base Excess 10.1 mmol/L; VBG HCO3 36 mmol/L (22-26); VBG pCO2 56 mmHg; VBG pH 7.41 (7.32-7.43); VBG pO2 55 mmHg
[2024-06-04 05:21] LABS: VBG Base Excess 14.4 mmol/L; VBG HCO3 37 mmol/L (22-26); VBG pCO2 40 mmHg; VBG pH 7.57 (7.32-7.43); VBG pO2 54 mmHg
[2024-06-04 05:22] LABS: Venous Blood Gas Refer to POC result
[2024-06-04 06:04] LABS: MANUAL DIFF FLAG NO
[2024-06-04 06:07] LABS: Basophils Percent Auto 0.1 % (0-2); Hematocrit 26.6 % (37.0-47.0); Hemoglobin 8.3 g/dl (12.0-16.0); Imm Gran Abs Auto 0.02 X10*3/uL (0.00-0.03); Imm Gran Pct Auto 0.3 % (0.0-0.4); Lymphocytes Percent Auto 13.1 % (20-40); Mean Corpuscular HGB Conc 31.2 g/dl (31.0-35.0); Mean Corpuscular Hemoglobin 25.5 pg (27.0-33.0); Mean Corpuscular Volume 81.6 fL (80.0-98.0); Mean Platelet Volume 11.5 fL (9.4-12.3); Monocytes Absolute Auto 0.8 X10*3/uL (0.1-1.2); Monocytes Percent Auto 10.3 % (2-11); Neutrophils Percent Auto 76.2 % (45-73); Platelet Count 134 X10*3/uL (160-400); Red Blood Count 3.26 X10*6/uL (4.20-5.50); Red Cell Distribution Width 15.2 % (11.0-16.0); White Blood Count 7.9 X10*3/uL (4.8-10.8)
[2024-06-04] MEDS: Pantoprazole Sodium 40 MG/10 ML VIAL IVPUSH (06:13)
[2024-06-04 06:15] LABS: Glucose, Whole Blood 113 mg/dL (60-115)
[2024-06-04 06:27] LABS: Albumin Level 3.3 g/dL (3.5-5.0); Anion Gap 15 (12-20); Blood Urea Nitrogen 23 mg/dL (9-16); Calcium 9.1 mg/dL (8.4-10.2); Carbon Dioxide 30 mmol/L (22-29); Chloride 106 mmol/L (96-108); Creatinine Clr Calc Pharmacy 38.6; Estimated Glomerular Filt Rate 47; Glucose Random 116 mg/dL (60-115); Magnesium 2.1 mg/dL (1.6-2.6); Potassium 4.2 mmol/L (3.3-5.1); Sodium 147 mmol/L (135-145)
[2024-06-04] MEDS: Albumin Human 25 % 100 ML IV ×2 (07:39→16:40)
[2024-06-04] MEDS: levETIRAcetam 250 MG in 0.9 % Sodium Chloride 100 ML 410 MG IV ×2 (08:47→20:54)
--- NOTE | 2024-06-04 09:46 | P.PNCC_ITS ---
Subjective Subjective Date of Service: 06/04/24 Interval History: 78-year-old lady with underlying COPD on 2 L O2 prior CVA with residual left- sided weakness, heart failure, seizure disorder, diabetes mellitus, minimally verbal and non ambulatory at baseline admitted on 06/02/2024 with hypoxia and hypercapnia requiring intubation and ventilatory support. Also noted to be stool guaiac positive with CT abdomen showing possible bleed around ileocecal valve. Evaluated by gastroenterology service with no plans for intervention at this time. Patient also had possible seizure. Extubated uneventfully on 06/03/2024. No events overnight. Critical Care Time (minutes): 0 Physical Exam 2 Vital Signs: Vital Signs: Last Vital Signs Temp 98.4 F 06/04/24 08:00 Pulse 85 06/04/24 08:00 Resp 21 H 06/04/24 08:00 BP 149/66 H 06/04/24 08:00 Pulse Ox 99 06/04/24 08:00 O2 Del Method Nasal Cannula 06/04/24 08:00 O2 Flow Rate 0.5 06/04/24 08:00 FiO2 24 06/03/24 10:05 Oxygen Flow Rate 5 06/02/24 19:42 BMI result Body Mass Index 34.3 Const: General: no acute distress, alert and awake Eyes: Sclerae: sclerae normal EOM: EOMs intact bilaterally Neck: Neck: Yes no lymphadenopathy, Yes trachea midline and Yes supple Resp: Effort & Inspection: normal respiratory effort and no respiratory distress Auscultation: clear to auscultation bilaterally Cardio: Rate: tachycardic Rhythm: regular rhythm Heart sounds: no gallops, no murmurs and no rubs GI: Palpation (GI): Soft to palpation and Other GI palpation findings present ( Nontender) Auscultation: normal bowel sounds Extrem: General: Yes no pedal edema, No clubbing and No cyanosis Objective Data Labs 06/04/24 05:14 06/04/24 05:14 Labs: Laboratory Results - last 24 hr 06/03/24 06/03/24 06/03/24 11:15 11:43 11:45 WBC RBC Hgb Hct MCV MCH MCHC RDW Plt Count MPV Immature Gran % (Auto) Neut % (Auto) Lymph % (Auto) [place] % (Auto) Eos % (Auto) Baso % (Auto) Lymph # (Auto) [place] # (Auto) Eos # (Auto) Baso # (Auto) Abs Immat Gran (auto) Absolute Neuts (auto) Absolute Nucleated RBC Nucleated RBC % (auto) O2 Saturation Cancelled ABG pH at Pt Temp Cancelled ABG pH (Temp Correct) Cancelled ABG pCO2 at Pt Temp Cancelled ABG pCO2 (Temp Corrct Cancelled ABG pO2 at Pt Temp Cancelled ABG pO2 (Temp Correct Cancelled ABG HCO3 Cancelled ABG Base Excess (Actual) Cancelled VBG pH 7.41 VBG pCO2 56 VBG pO2 55 VBG HCO3 36 H VBG O2 Saturation 83.0 VBG Base Excess 10.1 Sodium Potassium Chloride Carbon Dioxide Anion Gap BUN Creatinine Estim Creat Clear Calc Estimated GFR POC Glucose 243 H Random Glucose Calcium Phosphorus Magnesium Albumin 06/03/24 06/03/24 06/04/24 17:38 23:53 05:10 WBC RBC Hgb Hct MCV MCH MCHC RDW Plt Count MPV Immature Gran % (Auto) Neut % (Auto) Lymph % (Auto) [place] % (Auto) Eos % (Auto) Baso % (Auto) Lymph # (Auto) [place] # (Auto) Eos # (Auto) Baso # (Auto) Abs Immat Gran (auto) Absolute Neuts (auto) Absolute Nucleated RBC Nucleated RBC % (auto) O2 Saturation ABG pH at Pt Temp ABG pH (Temp Correct) ABG pCO2 at Pt Temp ABG pCO2 (Temp Corrct ABG pO2 at Pt Temp ABG pO2 (Temp Correct ABG HCO3 ABG Base Excess (Actual) VBG pH 7.57 H VBG pCO2 40 VBG pO2 54 VBG HCO3 37 H VBG O2 Saturation 89.0 VBG Base Excess 14.4 Sodium Potassium Chloride Carbon Dioxide Anion Gap BUN Creatinine Estim Creat Clear Calc Estimated GFR POC Glucose 77 112 Random Glucose Calcium Phosphorus Magnesium Albumin 06/04/24 06/04/24 05:14 06:12 WBC 7.9 RBC 3.26 L Hgb 8.3 L Hct 26.6 L MCV 81.6 MCH 25.5 L MCHC 31.2 RDW 15.2 Plt Count 134 L MPV 11.5 Immature Gran % (Auto) 0.3 Neut % (Auto) 76.2 H Lymph % (Auto) 13.1 L [place] % (Auto) 10.3 Eos % (Auto) 0.0 Baso % (Auto) 0.1 Lymph # (Auto) 1.0 L [place] # (Auto) 0.8 Eos # (Auto) 0.0 Baso # (Auto) 0.0 Abs Immat Gran (auto) 0.02 Absolute Neuts (auto) 6.0 Absolute Nucleated RBC 0.000 Nucleated RBC % (auto) 0.0 O2 Saturation ABG pH at Pt Temp ABG pH (Temp Correct) ABG pCO2 at Pt Temp ABG pCO2 (Temp Corrct ABG pO2 at Pt Temp ABG pO2 (Temp Correct ABG HCO3 ABG Base Excess (Actual) VBG pH VBG pCO2 VBG pO2 VBG HCO3 VBG O2 Saturation VBG Base Excess Sodium 147 H Potassium 4.2 Chloride 106 Carbon Dioxide 30 H Anion Gap 15 BUN 23 H Creatinine 1.12 Estim Creat Clear Calc 38.6 Estimated GFR 47 POC Glucose 113 Random Glucose 116 H Calcium 9.1 Phosphorus 4.0 Magnesium 2.1 Albumin 3.3 L Microbiology Microbiology Results: Microbiology 06/02/24 19:34 Blood - Venous Blood Culture - Preliminary No growth after 24 hours. 06/02/24 19:34 Blood - Venous Blood Culture - Preliminary No growth after 24 hours. Progress Note: A&P Assessment and plan (1) COPD (chronic obstructive pulmonary disease): Status: Acute (2) Hypoxia: Status: Acute (3) Acute hypercapnic respiratory failure: Status: Acute (4) Pulmonary aspiration: Status: Acute (5) Non-insulin dependent type 2 diabetes mellitus: Status: Acute Plan Assessment: 78-year-old lady admitted with acute on chronic hypoxic and hypercapnic respiratory failure requiring ventilatory support, with possible preceding aspiration event, and possible seizure activity Plan: Neuro: No recurrence of seizures. Underlying seizure disorder. Continue on Keppra. Cardiac: No acute issues. Underlying history of congestive heart failure. Pulmonary: Acute on chronic hypoxic and hypercapnic respiratory failure likely secondary to an aspiration event requiring intubation and ventilatory support. Extubated uneventfully on 06/03/2024. Underlying history of COPD on up to 2 L of supplemental oxygen. Renal: No acute issues. Endo: No acute issues. GI: Possible acute/subacute GI bleed from the area around the cecal valve. Evaluated by gastroenterology service, hemoglobin stable, no plans for intervention at this time. ID: Empiric coverage for pulmonary aspiration pneumonia versus pneumonitis. Heme/Onc: No acute issues. Psych: No acute issues. Miscellaneous: No acute issues. Prophylaxis: Heparin Diet: Pending swallow evaluation Quality Stroke Does the patient have a stroke diagnosis?: No VTE Prior VTE?: No VTE Risk Level:: Medical - moderate - high VTE Device Contraindication: N/A - Device Ordered VTE Drug Contraindication: N/A - Med Ordered
--- NOTE | 2024-06-04 09:54 | MHC.CM.PN ---
Pt continues to make clinical progress and will transfer out of ICU: Pt from home on [facility] with / [employer] provided PLSQL DEVELOPER care. Pt will need BLS transport. CM to follow
--- NOTE | 2024-06-04 10:14 | P.PNGI_ITS ---
Subjective Subjective Date of Service: 06/04/24 Interval History: extubated now, not much history from the patient can t really give me details about any symptoms, but seems relaxed. per R/N no acute bleeding noted, no melena Critical Care Time (minutes): 0 Physical Exam 2 Vital Signs: Vital Signs: Last Vital Signs Temp 98.4 F 06/04/24 08:00 Pulse 85 06/04/24 08:00 Resp 21 H 06/04/24 08:00 BP 149/66 H 06/04/24 08:00 Pulse Ox 99 06/04/24 08:00 O2 Del Method Nasal Cannula 06/04/24 08:00 O2 Flow Rate 0.5 06/04/24 08:00 FiO2 24 06/03/24 10:05 Oxygen Flow Rate 5 06/02/24 19:42 BMI result Body Mass Index 34.3 EXAM: GENERAL: The patient is relaxed, obese, on O2 VITAL SIGNS:see workflow HEENT: Nonicteric sclerae, PERRLA, EOMI. Oropharynx clear. Moist mucous membranes. Conjunctivae appear well perfused. No thyroid mass. CHEST: Chest wall is nontender. HEART: Regular rate and rhythm without murmurs. LUNGS: Clear to auscultation bilaterally. ABDOMEN: Soft, positive bowel sounds, nontender, no organomegaly.no flank tenderness SKIN: No rash, no excessive bruising, petechiae, or purpura. NEUROLOGIC: Cranial nerves II-XII intact without motor/sensory deficit. Psych: normal affect Objective Data Labs 06/05/24 06:16 06/05/24 06:16 Labs: Laboratory Results - last 24 hr 06/03/24 06/03/24 06/03/24 11:15 11:43 11:45 WBC RBC Hgb Hct MCV MCH MCHC RDW Plt Count MPV Immature Gran % (Auto) Neut % (Auto) Lymph % (Auto) [place] % (Auto) Eos % (Auto) Baso % (Auto) Lymph # (Auto) [place] # (Auto) Eos # (Auto) Baso # (Auto) Abs Immat Gran (auto) Absolute Neuts (auto) Absolute Nucleated RBC Nucleated RBC % (auto) O2 Saturation Cancelled ABG pH at Pt Temp Cancelled ABG pH (Temp Correct) Cancelled ABG pCO2 at Pt Temp Cancelled ABG pCO2 (Temp Corrct Cancelled ABG pO2 at Pt Temp Cancelled ABG pO2 (Temp Correct Cancelled ABG HCO3 Cancelled ABG Base Excess (Actual) Cancelled VBG pH 7.41 VBG pCO2 56 VBG pO2 55 VBG HCO3 36 H VBG O2 Saturation 83.0 VBG Base Excess 10.1 Sodium Potassium Chloride Carbon Dioxide Anion Gap BUN Creatinine Estim Creat Clear Calc Estimated GFR POC Glucose 243 H Random Glucose Calcium Phosphorus Magnesium Albumin 06/03/24 06/03/24 06/04/24 17:38 23:53 05:10 WBC RBC Hgb Hct MCV MCH MCHC RDW Plt Count MPV Immature Gran % (Auto) Neut % (Auto) Lymph % (Auto) [place] % (Auto) Eos % (Auto) Baso % (Auto) Lymph # (Auto) [place] # (Auto) Eos # (Auto) Baso # (Auto) Abs Immat Gran (auto) Absolute Neuts (auto) Absolute Nucleated RBC Nucleated RBC % (auto) O2 Saturation ABG pH at Pt Temp ABG pH (Temp Correct) ABG pCO2 at Pt Temp ABG pCO2 (Temp Corrct ABG pO2 at Pt Temp ABG pO2 (Temp Correct ABG HCO3 ABG Base Excess (Actual) VBG pH 7.57 H VBG pCO2 40 VBG pO2 54 VBG HCO3 37 H VBG O2 Saturation 89.0 VBG Base Excess 14.4 Sodium Potassium Chloride Carbon Dioxide Anion Gap BUN Creatinine Estim Creat Clear Calc Estimated GFR POC Glucose 77 112 Random Glucose Calcium Phosphorus Magnesium Albumin 06/04/24 06/04/24 05:14 06:12 WBC 7.9 RBC 3.26 L Hgb 8.3 L Hct 26.6 L MCV 81.6 MCH 25.5 L MCHC 31.2 RDW 15.2 Plt Count 134 L MPV 11.5 Immature Gran % (Auto) 0.3 Neut % (Auto) 76.2 H Lymph % (Auto) 13.1 L [place] % (Auto) 10.3 Eos % (Auto) 0.0 Baso % (Auto) 0.1 Lymph # (Auto) 1.0 L [place] # (Auto) 0.8 Eos # (Auto) 0.0 Baso # (Auto) 0.0 Abs Immat Gran (auto) 0.02 Absolute Neuts (auto) 6.0 Absolute Nucleated RBC 0.000 Nucleated RBC % (auto) 0.0 O2 Saturation ABG pH at Pt Temp ABG pH (Temp Correct) ABG pCO2 at Pt Temp ABG pCO2 (Temp Corrct ABG pO2 at Pt Temp ABG pO2 (Temp Correct ABG HCO3 ABG Base Excess (Actual) VBG pH VBG pCO2 VBG pO2 VBG HCO3 VBG O2 Saturation VBG Base Excess Sodium 147 H Potassium 4.2 Chloride 106 Carbon Dioxide 30 H Anion Gap 15 BUN 23 H Creatinine 1.12 Estim Creat Clear Calc 38.6 Estimated GFR 47 POC Glucose 113 Random Glucose 116 H Calcium 9.1 Phosphorus 4.0 Magnesium 2.1 Albumin 3.3 L Microbiology Microbiology Results: Microbiology 06/02/24 19:34 Blood - Venous Blood Culture - Preliminary No growth after 24 hours. 06/02/24 19:34 Blood - Venous Blood Culture - Preliminary No growth after 24 hours. Procedures Date of Service Date of Service: 06/05/24 Progress Note: A&P Assessment and plan (1) GI bleed: Status: Acute Plan 1/ anemia, found down posisble seizure and aspiriation, abn imaging with possible right sided bleedon Ct but no overt GI bleeding PLAN: 1/ cont to monitor, if overt GI bleeding possible colonoscopy, if brisk bleeding then IR Time Spent With Patient Time: Total time managing care of this patient today ____ minutes. Quality Stroke Does the patient have a stroke diagnosis?: No VTE Prior VTE?: No VTE Risk Level:: Medical - moderate - high VTE Device Contraindication: N/A - Device Ordered VTE Drug Contraindication: N/A - Med Ordered
[2024-06-04 11:46] LABS: Glucose, Whole Blood 130 mg/dL (60-115)
[2024-06-04] MEDS: Metoprolol Succinate ER 25 MG TAB.ER.24H PO (13:28)
--- NOTE | 2024-06-04 15:35 | MHC.SL.SWA ---
Speech Pathologist Impression: Risk of Aspiration Due to: Lethargy Hx of Recent Extubation Dysphasia Diet Status: Liquid Consistency and Strategies for Safe Swallow: Liquid Intake Recommendation: [place] Thick Liquid Intake Strategies: Small Sips Solid Food Consistency: Dietary Recommendations: Grnd/Mech Altered (NDD2) Additional Modifications to Solid Foods: Oral Medication Intake: Whole with Puree Please contact the pharmacy regarding appropriate crushable or liquid drug formulations that are available whenever modified delivery is recommended. Compensatory Strategies and Precautions to be Taken for Safe Swallow: Sitting Upright (90 deg) Small Bites and Sips Alternate Liquids/Solids Rate of Ingestion Change Supervision While Eating and Drinking for Safe Swallow: Intermittent Supervision Foods to Avoid: Swallowing Recommended Treatments: Compens. Strategy Educat. Recommendation for Speech: Inpatient Speech Therapy Comment: CLINICAL TEAM MANAGER recommends start diet of Ground/Altered Solids with Thin Liquids. Meds Whole with Puree. Assist with tray set-up. CLINICAL TEAM MANAGER following for toleration and advancement, as needed. Frequency/Duration: Daily Date Range for Service Req: Admission Timeline to reassess: PRN Yard Jockey Clinican/Clinical Fellow: No Supervisory Statement: I have reviewed and agree with the student/clinical fellow's documentation: N/A Speech Language Pathologist: Sharad Perez M.A., [facility]-CLINICAL TEAM MANAGER
--- NOTE | 2024-06-04 16:33 | HO.WOUND ---
Wound Consult: Initial 78yr old?female admitted to [facility] on 06/02/24 - See progress notes and H&P for detailed history.? Wound consult placed for sacral wound POA.? Patient agreeable to assessment and photo documentation.? Sacrum Etiology: Deep Tissue Injury??Present on Admission Measurements: see charting for detailed measurements Wound Bed: dark intact purple nonblanchable tissue with irregular boardered - central area with red tissue partial thickness tissue loss Drainage / Odor: scant amount of hernandez drainage no odor noted Edges: ? irregular and attached Shala wound: ? MASD - Hyperpigemtation and hypopigmentation - evidence of previous injury No Induration, Fluctuance or Warmth noted Pain: denies Goals of Treatment: ? Off Load Pressure and triad and foam to allow for moist wound healing and to protect from friction Bilateral Posterior calfs are noted for suspected Device related Deep Tissue Injury secondary to us of Trevor lift at facility. The areas are linear and in pattern of lift pad location - remain intact and nonblanchable. Recommend skin prep application and off load pressure. Left Heel noted for healed previous pressure injury evidence - at [facility] for reopening - preventative measures in place foam dressing and heel elevation noted. ALYSSA mattress in place and off loading with pillows. Recommendations: 1. Turn and Reposition every 2 hours and as needed for patient comfort.? Use pillows or wedges to support off loading positions. 2. Off Load all bony prominences with use of pillows and heel boots if needed.? Apply Preventative foams where needed. ? 3. Monitor for incontinence and moisture control, use barrier creams when needed for prevention and treatment. 4. Provide adequate and supplemental nutrition.? 5. Order low air loss mattress. 6. When applicable maintain blood glucose levels per Providers order. 7. Sacrum - Off Load Pressure? - Cleanse with PH balance spray or wipes, pat dry. ?Apply thin layer of Triad to wound bed. Do not remove all of paste between applications as this may cause further skin damage.? Cover with foam dressing to aid in off loading and protection from friction. Change every other day and PRN. 8. Bilateral Posterior Calf - Apply skin prep daily to protect tissue and decrease friction. Off Load Pressure to the area. 9. Left Heel - Elevate off of bed surface with pillows. Apply skin prep let dry apply Heel foam dressing change every 7 days and PRN. Be sure to peel back and assess skin Q shift. Re-consult wound care Nurse for wound deterioration or wound changes.
[2024-06-04 18:10] LABS: Glucose, Whole Blood 143 mg/dL (60-115)
[2024-06-04 23:56] LABS: Glucose, Whole Blood 127 mg/dL (60-115)
[2024-06-05] VITALS (12 sets, daily range): BP systolic 122–161; BP diastolic 60–84; PULSE 66–114; RESP 16–22; TEMP 36–36.9; O2SAT 91–99; BMI 32.3
[2024-06-05] MEDS: Insulin Lispro 100 UNIT/ML 3 ML VIAL SUBCUT (00:15)
[2024-06-05] MEDS: Albuterol/Iprat 2.5/0.5MG 3 ML AMPUL.NEB INHALE ×5 (00:48→20:38)
[2024-06-05 06:25] LABS: MANUAL DIFF FLAG NO
[2024-06-05 06:26] LABS: Glucose, Whole Blood 144 mg/dL (60-115)
[2024-06-05 06:30] LABS: Basophils Percent Auto 0.2 % (0-2); Eosinophils Percent Auto 0.1 % (0-4); Hemoglobin 10.4 g/dl (12.0-16.0); Imm Gran Abs Auto 0.07 X10*3/uL (0.00-0.03); Imm Gran Pct Auto 0.5 % (0.0-0.4); Lymphocytes Percent Auto 14.5 % (20-40); Mean Corpuscular HGB Conc 30.6 g/dl (31.0-35.0); Mean Corpuscular Hemoglobin 25.4 pg (27.0-33.0); Mean Corpuscular Volume 83.1 fL (80.0-98.0); Mean Platelet Volume 11.5 fL (9.4-12.3); Monocytes Absolute Auto 1.3 X10*3/uL (0.1-1.2); Monocytes Percent Auto 9.1 % (2-11); Neutrophils Absolute Auto 10.3 x10*3/uL (2.0-8.3); Neutrophils Percent Auto 75.6 % (45-73); Platelet Count 180 X10*3/uL (160-400); Red Blood Count 4.09 X10*6/uL (4.20-5.50); Red Cell Distribution Width 15.8 % (11.0-16.0); White Blood Count 13.7 X10*3/uL (4.8-10.8)
[2024-06-05 06:44] LABS: Albumin Level 4.3 g/dL (3.5-5.0); Anion Gap 16 (12-20); Blood Urea Nitrogen 17 mg/dL (9-16); Carbon Dioxide 29 mmol/L (22-29); Chloride 106 mmol/L (96-108); Creatinine Clr Calc Pharmacy 43.7; Estimated Glomerular Filt Rate 54; Glucose Random 159 mg/dL (60-115); Magnesium 2.1 mg/dL (1.6-2.6); Potassium 3.9 mmol/L (3.3-5.1); Sodium 147 mmol/L (135-145)
--- NOTE | 2024-06-05 07:42 | P.PNIM_ITS ---
Subjective Subjective Date of Service: 06/05/24 Interval History: Patient able to answer appropriately, during conversation noted to have periods of anxiety with shakiness of left arm that last for seconds, patient able to feed herself, denies shortness of breath, noted to have intermittent cough, no fevers no chills no acute events overnight. Nurse notified periods of shortness of breath and wheezing lasting short duration with stable oxygenation 96- 98% on inquiring with patient she admits to be anxious. Review of Systems All other symptoms reviewed and are negative. Physical Exam 2 Vital Signs: Vital Signs: Last Vital Signs Temp 98.4 F 06/05/24 07:02 Pulse 72 06/05/24 07:02 Resp 16 06/05/24 07:02 BP 148/70 H 06/05/24 07:02 Pulse Ox 96 06/05/24 07:02 O2 Del Method Nasal Cannula 06/05/24 07:02 O2 Flow Rate 3 06/05/24 07:02 FiO2 24 06/03/24 10:05 Oxygen Flow Rate 5 06/02/24 19:42 BMI result Body Mass Index 32.3 Const: Other: Gen: in no acute distress HEENT: sclera anicteric, moist mucus membranes Neck: supple Lungs: Diminished with expiratory wheeze Heart: regular rate and rhythm, no murmurs Abd: soft, non-tender, non-distended Ext: no edema Skin: warm/well-perfused Neuro: alert, chronic facial droop and L-sided weakness Psych: impaired insight Objective Data Active Medications Albuterol/Ipratropium (Albuterol/Iprat 2.5/0.5mg 3 Ml Ampul.Neb) 3 ml INHALE RQ4H PENDING SALE TO [facility] Last Admin: 06/05/24 06:12 Dose: 3 ml Documented By: DRISS Glucose (Glucose Gel 15 Gm Gel..Gram.) 15 gm PO Q15M PRN; Protocol PRN Reason: per Hypoglycemia Standing Ord. Dextrose (D10) 250 mls @ 750 mls/hr IV Q15M PRN; Protocol PRN Reason: per Hypoglycemia Standing Ord. Levofloxacin (Levaquin) 750 mg in 150 mls @ 100 mls/hr IV Q48H PENDING SALE TO [facility] Last Infusion: 06/03/24 11:30 Dose: Infused Documented By: STEPHANE Levetiracetam 250 mg/ Sodium (Chloride) 102.5 mls @ 410 mls/hr IV Q12H PENDING SALE TO [facility] Last Infusion: 06/04/24 21:14 Dose: Infused Documented By: DANI Insulin Human Lispro (Insulin Lispro 100 Unit/Ml 3 Ml Vial) 0 unit SUBCUT Q6H PENDING SALE TO [facility]; Protocol Last Admin: 06/05/24 06:24 Dose: Not Given Documented By: DANI Non-Admin Reason: Order parameters not met Metoprolol Succinate (Metoprolol Succinate Er 25 Mg Tab.Er.24h) 25 mg PO DAILY PENDING SALE TO [facility]; Protocol Last Admin: 06/04/24 13:28 Dose: 25 mg Documented By: SILVIA Sodium Chloride (0.9 % Sodium Chloride Flush 3 Ml Syringe) 3 ml IVFLUSH QSHIFT PENDING SALE TO [facility] Last Admin: 06/04/24 20:54 Dose: 3 ml Documented By: DANI Labs 06/05/24 06:16 06/05/24 06:16 Labs: Laboratory Results - last 24 hr 06/04/24 06/04/24 06/04/24 11:43 18:06 23:53 Anion Gap Estim Creat Clear Calc Estimated GFR POC Glucose 130 H 143 H 127 H Random Glucose Calcium Phosphorus Magnesium Albumin 06/05/24 06/05/24 06:16 06:22 Anion Gap 16 Estim Creat Clear Calc 43.7 Estimated GFR 54 POC Glucose 144 H Random Glucose 159 H Calcium 10.0 D Phosphorus 3.0 Magnesium 2.1 Albumin 4.3 Microbiology Microbiology Results: Microbiology 06/02/24 19:34 Blood Culture - Preliminary Blood - Venous No growth after 48 hours. 06/02/24 19:34 Blood Culture - Preliminary Blood - Venous No growth after 48 hours. Assessment and Plan (1) Non-insulin dependent type 2 diabetes mellitus: Status: Acute (2) Pulmonary aspiration: Status: Acute (3) COPD (chronic obstructive pulmonary disease): Status: Acute (4) Seizure: Status: Acute (5) GI bleed: Status: Acute Plan 78-year-old lady with past medical history of COPD 2 L of home O2, history of CVA with residual left-sided weakness, seizure disorder, diabetes mellitus, minimally verbal and non ambulatory at baseline admitted on 06/02 with acute on chronic hypoxic and hypercapnic respiratory failure requiring ventilatory support, with possible preceding aspiration event, and possible seizure activity admitted to ICU intubated and successfully extubated on 06/03 transferred to medical floor on . Breakthrough seizures No recurrence of seizures hx of seizure disorder. Continue on Keppra. Acute on chronic hypoxic and hypercapnic respiratory failure likely secondary to an aspiration event requiring intubation and ventilatory support. Extubated uneventfully on 06/03/2024. Underlying history of COPD on up to 2 L of supplemental oxygen , CT chest showed patchy ground-glass opacities both upper lobes and lower lobes likely developing infiltrates Continue IV Levaquin started in ICU on 06/03, continue scheduled updraft q.4 hours and as needed albuterol MDI. Add cough medication Possible acute/subacute GI bleed from the area around the cecal valve seen on CT abdomen and pelvis: No abdominal pain, no nausea, no vomiting, tolerating diet Evaluated by gastroenterology service, hemoglobin stable, no plans for intervention at this time, since hemoglobin stable at baseline ddx .AVM, colonic lesion, diverticular bleeding Will hold aspirin and Plavix, place on PPI If over GI bleed no will reconsult GI for possible colonoscopy ,brisk bleeding then IR aspiration pneumonia versus pneumonitis. Continue Levaquin iv , transitioned to by mouth at a.m. for total 7 day treatment. Leukocytosis likely due to steroid. Hypertension resume metoprolol, hold Lasix History of CVA hold aspirin and Plavix resume in 1 week if no bleeding or drop of hematocrit noted Diabetes mellitus type 2 on glipizide 5 mg daily, currently on hold, continue insulin sliding scale and monitor point of care Mood disorder continue trazodone and fluoxetine Hyperthyroidism continue methimazole Prophylaxis: Heparin Diet: Seen by speech started on NDD 2 diet and thin liquids In my clinical judgment patient request continued inpatient hospitalization for monitoring of CBC, GI bleed recurrent seizure and acute on chronic hypoxic respiratory failure. Quality Stroke Does the patient have a stroke diagnosis?: No VTE Prior VTE?: No VTE Risk Level:: Medical - moderate - high VTE Device Contraindication: N/A - Device Ordered VTE Drug Contraindication: N/A - Med Ordered
[2024-06-05] MEDS: 0.9 % Sodium Chloride Flush 3 ML SYRINGE IVFLUSH ×3 (09:07→20:12)
[2024-06-05] MEDS: oxyBUTYnin chloride ER 5 MG TAB.ER.24 PO (09:07)
[2024-06-05] MEDS: Pregabalin 150 MG CAPSULE PO ×3 (09:07→20:12)
[2024-06-05] MEDS: FLUoxetine HCl 20 MG CAPSULE PO (09:08)
[2024-06-05] MEDS: methIMAzole 5 MG TABLET 2.5 MG PO (09:08)
[2024-06-05] MEDS: levETIRAcetam 250 MG TABLET PO ×2 (09:08→20:12)
[2024-06-05] MEDS: Metoprolol Succinate ER 25 MG TAB.ER.24H PO (09:09)
[2024-06-05] MEDS: levoFLOXacin/D5W 750 MG/150 ML PIGGYBACK 100 MG IV (09:13)
--- NOTE | 2024-06-05 10:17 | MHC.CLN ---
F/U PT EXTUBATED 06/03 PT TRANSFERRED TO MEDICAL FLOOR DIET ADVANCED TO 2000DM GRD M/S PER DRUM PULLER PT WITH INCREASED NUTRITION RISK R/T PRESSURE INJURIES RECOMMEND ADDING ENSURE MAX BID TO PROMOTE WOUND HEALING SUPP PROVIDES 300KCALS, 60G PROTEIN MONITOR PO INTAKE AND ENCOURAGE SUPPLEMENTS
--- NOTE | 2024-06-05 11:22 | MHC.SL.SWA ---
Speech Pathologist Impression: Mild oropharyngeal dysphagia Risk of Aspiration Due to: Lethargy Hx of Recent Extubation Hx of CVA resulting in L sided weakness Recent dx of acute unspecified GI bleed Dysphasia Diet Status: Liquid Consistency and Strategies for Safe Swallow: Liquid Intake Recommendation: Thin Liquid Intake Strategies: Small Sips Solid Food Consistency: Dietary Recommendations: Grnd/Mech Altered (NDD2) Additional Modifications to Solid Foods: Oral Medication Intake: Whole with Puree Please contact the pharmacy regarding appropriate crushable or liquid drug formulations that are available whenever modified delivery is recommended. Compensatory Strategies and Precautions to be Taken for Safe Swallow: Sitting Upright (90 deg) Small Bites and Sips Alternate Liquids/Solids Rate of Ingestion Change Supervision While Eating and Drinking for Safe Swallow: Intermittent Supervision Foods to Avoid: Swallowing Recommended Treatments: Compens. Strategy Educat. Recommendation for Speech: Inpatient Speech Therapy Comment: Pt tolerating ground diet (NDD2) with thins, meds whole in puree. Pt needs assist with tray set-up and some feeding d/t tremor of L hand. Pt satisfied with current diet, PAINTER TUMBLING BARREL following for toleration and advancement, as needed. Frequency/Duration: Daily Date Range for Service Req: Admission Timeline to reassess: PRN Matrix Plater Clinican/Clinical Fellow: No Supervisory Statement: I have reviewed and agree with the student/clinical fellow's documentation: N/A Speech Language Pathologist: Flores Kirby M.S., [facility]-PAINTER TUMBLING BARREL
[2024-06-05 11:33] LABS: Glucose, Whole Blood 137 mg/dL (60-115)
[2024-06-05 16:58] LABS: Glucose, Whole Blood 126 mg/dL (60-115)
[2024-06-05] MEDS: traZODone HCL 100 MG TABLET PO (20:12)
[2024-06-05] MEDS: Atorvastatin Calcium 80 MG TABLET PO (20:12)
[2024-06-05 21:23] LABS: Glucose, Whole Blood 99 mg/dL (60-115)
[2024-06-06] VITALS (8 sets, daily range): BP systolic 122–135; BP diastolic 53–65; PULSE 56–68; RESP 16–22; TEMP 36.5–36.6; O2SAT 93–98; BMI 34.1
[2024-06-06] MEDS: Albuterol/Iprat 2.5/0.5MG 3 ML AMPUL.NEB INHALE ×3 (00:19→11:33)
[2024-06-06 06:59] LABS: Anion Gap 16 (12-20); Blood Urea Nitrogen 19 mg/dL (9-16); Calcium 9.5 mg/dL (8.4-10.2); Carbon Dioxide 30 mmol/L (22-29); Chloride 103 mmol/L (96-108); Creatinine Clr Calc Pharmacy 47.9; Estimated Glomerular Filt Rate > 60; Glucose Random 90 mg/dL (60-115); Potassium 4.1 mmol/L (3.3-5.1); Sodium 145 mmol/L (135-145)
[2024-06-06 07:24] LABS: Glucose, Whole Blood 88 mg/dL (60-115)
[2024-06-06 07:26] LABS: Glucose, Whole Blood 86 mg/dL (60-115)
[2024-06-06 07:52] LABS: Hemoglobin 9.3 g/dl (12.0-16.0); Mean Corpuscular Hemoglobin 25.7 pg (27.0-33.0); Mean Corpuscular Volume 82.9 fL (80.0-98.0); Platelet Count 143 X10*3/uL (160-400); Red Blood Count 3.62 X10*6/uL (4.20-5.50); Red Cell Distribution Width 15.6 % (11.0-16.0); White Blood Count 9.4 X10*3/uL (4.8-10.8)
[2024-06-06 09:08] LABS: Levetiracetam Keppra 26.4 mcg/mL (6.0-46.0)
[2024-06-06] MEDS: oxyBUTYnin chloride ER 5 MG TAB.ER.24 PO (10:21)
[2024-06-06] MEDS: levETIRAcetam 250 MG TABLET PO (10:21)
[2024-06-06] MEDS: methIMAzole 5 MG TABLET 2.5 MG PO (10:21)
[2024-06-06] MEDS: 0.9 % Sodium Chloride Flush 3 ML SYRINGE IVFLUSH (10:21)
[2024-06-06] MEDS: Metoprolol Succinate ER 25 MG TAB.ER.24H PO (10:22)
[2024-06-06] MEDS: FLUoxetine HCl 20 MG CAPSULE PO (10:22)
[2024-06-06] MEDS: Pregabalin 150 MG CAPSULE PO (10:22)
--- NOTE | 2024-06-06 10:23 | MHC.SL.SWA ---
Speech Pathologist Impression: Risk of Aspiration Due to: Lethargy Hx of Recent Extubation Dysphasia Diet Status: Recommend continue Ground/Mechanical (NDD2) with Thin liquids, pills crushed in puree. Liquid Consistency and Strategies for Safe Swallow: Liquid Intake Recommendation: Thin Liquid Intake Strategies: Small Sips Solid Food Consistency: Dietary Recommendations: Grnd/Mech Altered (NDD2) Additional Modifications to Solid Foods: Patient with R sided weakness, needs assistance with the set up of her tray: Assure that all items are opened, in easy reach/availability of L hand. Provided intermittent checks to assure that patient is progressing with meal, can access food and drink items without difficulty. Oral Medication Intake: Crushed with Puree Please contact the pharmacy regarding appropriate crushable or liquid drug formulations that are available whenever modified delivery is recommended. Compensatory Strategies and Precautions to be Taken for Safe Swallow: Sitting Upright (90 deg) Small Bites and Sips Alternate Liquids/Solids Rate of Ingestion Change Supervision While Eating and Drinking for Safe Swallow: Intermittent Supervision Foods to Avoid: Swallowing Recommended Treatments: Compens. Strategy Educat. Recommendation for Speech: Inpatient Speech Therapy Comment: Pt seen this morning at breakfast, which was on a tray in front of her when therapist entered, however patient appeared to be asleep. Patient did wake to good morning but gave limited verbal response, but after a mild delay, picked up fork and began to eat. Patient with notable R facial droop, inferred to be from previous CVA, though not noted on original Oral Motor assessment. Patient able to scoop eggs onto fork, slowly and effortfully able to bring fork to mouth, with eggs in mouth, produced slow rotary chew, followed by mild delay initiating swallow (absent swallow trigger). All drinks on tray had straw present, no previous PETROLEUM GEOLOGIST notes indicated straw precautions, patient was offered sip of liquid, with patient electing nutritional shake. Patient was able to propel liquid, noted on first sip to hold liquid before propelling with mild delay of swallow again noted, no clinical signs of aspiration. Patient continued to slowly eat, independently, with PETROLEUM GEOLOGIST placing shake adjacent to left hand. Patient independently took sips of liquid after 2-3 bites of food. Timing of swallow on liquid on sips by straw was somewhat improved, with no clinical signs of aspiration. During session, patient continued minimally verbal, had episodes where she appeared to be staring blankly, but when asked are you ok? would become more alert and resume eating. White board in room adjusted with recommended diet noted: Ground/Mechanical (NDD2) with Thin liquids, pills crushed in puree. Also noted: Patient requires intermittent supervision and assistance with tray set up due to R sided weakness. Frequency/Duration: Daily Date Range for Service Req: Admission Timeline to reassess: PRN Manager Medical Writing Clinican/Clinical Fellow: No Supervisory Statement: I have reviewed and agree with the student/clinical fellow's documentation: N/A Speech Language Pathologist: Helga Morataya M.A., CCC-PETROLEUM GEOLOGIST
--- NOTE | 2024-06-06 10:51 | MHC.CM.NN ---
Per ROUNDS discussion, Patient is medically cleared for dc to home today; MEDICAL CLAIMS PROCESSOR services will resume as before. CM spoke with HCP/Mariely @ [phone] and addressed IMM with her(original will be mailed certified letter to Mariely and a copy has been placed on the chart). Patient will dc to home at 12:30 PM (per [facility]'s request, in time for bar attendant/Caregivers to be present when Patient returns home) via [facility].
--- NOTE | 2024-06-06 10:58 | P.DS_ITS ---
DS: Providers Provider Date of Service: 06/06/24 Date of admission: 06/02/24 21:25 Date of discharge: 06/06/24 Primary care physician: Cliff Walsh MD Consults: 06/03/24 00:59 Consult to Gastroenterology Stat Consulting Provider[place] [facility] Reason for consultation: GI Bleed Has provider been notified: No Consult to Wound Care Routine Reason for consultation: pressure injury Has provider been notified: No Attending physician on discharge: Michele Saavedra Discharging clinician: Alysa Zhao DS: Diagnosis Discharge Diagnosis (1) Pulmonary aspiration: Status: Acute (2) Non-insulin dependent type 2 diabetes mellitus: Status: Acute (3) COPD (chronic obstructive pulmonary disease): Status: Acute (4) Seizure: Status: Acute (5) GI bleed: Status: Acute DS: Summary Hospital Course Hospital Course: From H&P on the day of admission Ms. Hernández is a 77-year-old female residing at [facility] with a PMH significant for COPD on home O2, hx of CVA with L-sided weakness,? CHF, HTN, HLD, NIDDM2, and obesity. She is minimally verbal and non-ambulatory at baseline.? She was found by her sebd teacher /HCP slouched on her couch, unresponsive, possibly having a seizure. EMS reports O2 sats in the mid 80s on her usual 2 L O2.? They gave her 1 mg intranasal Versed during transport to the ER.? On arrival to the ER, the patient was unresponsive and was being ventilated with an Ambu bag. BP was 137/54, heart rate 63. Afebrile. Laboratory data significant for hemoglobin 9.5, hematocrit 31.2, platelet 149, serum bicarb 42, BUN 26, BNP 156. VBG 7.31 106 123 54.? Urinalysis negative for UTI. Guaiac positive. Imaging:? Chest CT: Developing pneumonia bilaterally.? Head CT: No acute intracranial process. Bilateral ethmoid and left frontal sinus inflammatory changes. ABD/Pelvis CT pending. ED course: On arrival, the patient was unresponsive with pinpoint pupils and was intubated for airway protection.? She received 2 L normal saline, 1.5 g Keppra, ceftriaxone 1 g, azithromycin 500 mg.?Propofol and midazolam drips were initiated.?Occult guaiac was reported as positive as patient was being transferred to the ICU. CT abdomen and pelvis obtained. Hospital course by problem: Breakthrough seizures No recurrence of seizures, has hx of seizure disorder. Continue on Keppra. Acute on chronic hypoxic and hypercapnic respiratory failure likely secondary to an aspiration event requiring intubation and ventilatory support. Extubated uneventfully on 06/03/2024. Underlying history of COPD on up to 2 L of supplemental oxygen , CT chest showed patchy ground-glass opacities both upper lobes and lower lobes likely developing infiltrates. complete course of antibiotics upon discharge Possible acute/subacute GI bleed from the area around the cecal valve seen on CT abdomen and pelvis: No abdominal pain, no nausea, no vomiting, tolerating diet Evaluated by gastroenterology service, hemoglobin stable, no plans for intervention at this time. H/H has remained stable. hold aspirin and Plavix for one week and resume if no bleeding and repeat H/H remains stable. aspiration pneumonia versus pneumonitis. Continue Levaquin iv , transitioned to by mouth for total 7 day treatment. Leukocytosis likely due to steroid. Blood cultures negative to date. on baseline 2L supplemental oxygen. Hypertension continue baseline medications History of CVA hold aspirin and Plavix resume in 1 week if no bleeding or drop of hematocrit noted Diabetes mellitus type 2 on glipizide 5 mg daily, currently on hold. POCs have been under 140, will hold glipizide for now to prevent hypoglycemia. VNA for close blood sugar monitoring on discharge. Mood disorder continue trazodone and fluoxetine Hyperthyroidism continue methimazole Diet: Seen by speech started on NDD 2 diet and thin liquids. continue speech therapy as outpatient Time Attestation Discharge Coordination Time (in mins): 40 Quality: Safe Use of Opioids Does Pt have an Active Cancer Diagnosis on the Problem List?: No Quality: Stroke Does the patient have a stroke diagnosis?: No Physical Exam Vital Signs: Vital Signs: Last Vital Signs Temp 97.7 F 06/06/24 07:44 Pulse 68 06/06/24 10:22 Resp 22 H 06/06/24 07:44 BP 122/53 L 06/06/24 10:22 Pulse Ox 98 06/06/24 07:44 O2 Del Method Nasal Cannula 06/06/24 07:44 O2 Flow Rate 2 06/06/24 07:44 FiO2 24 06/03/24 10:05 Oxygen Flow Rate 5 06/02/24 19:42 BMI result Body Mass Index 34.1 Const: Other: Gen: in no acute distress HEENT: sclera anicteric, moist mucus membranes Neck: supple Lungs: Diminished Heart: regular rate and rhythm, no murmurs Abd: soft, non-tender, non-distended Ext: no edema Skin: warm/well-perfused Neuro: alert, chronic facial droop and L-sided weakness Psych: impaired insight General: comfortable, no acute distress, alert and awake GI: Inspection: No distended Palpation (GI): Soft to palpation DS: Data Data Completed and Pending Completed studies during hospitalization [Text1]: Procedures Introduction of Remdesivir Anti-infective into Peripheral Vein, Percutaneous Approach, [employer] 5 (08/02/23) Labs on day of discharge: Laboratory Results - last 24 hr 06/02/24 06/05/24 06/05/24 19:34 11:27 16:52 WBC RBC Hgb Hct MCV MCH MCHC RDW Plt Count MPV Absolute Nucleated RBC Nucleated RBC % (auto) Sodium Potassium Chloride Carbon Dioxide Anion Gap BUN Creatinine Estim Creat Clear Calc Estimated GFR POC Glucose 137 H 126 H Random Glucose Calcium Levetiracetam 26.4 06/05/24 06/06/24 06/06/24 21:19 06:29 07:17 WBC 9.4 RBC 3.62 L Hgb 9.3 L Hct 30.0 L MCV 82.9 MCH 25.7 L MCHC 31.0 RDW 15.6 Plt Count 143 L MPV 11.0 Absolute Nucleated RBC 0.000 Nucleated RBC % (auto) 0.0 Sodium 145 Potassium 4.1 Chloride 103 Carbon Dioxide 30 H Anion Gap 16 BUN 19 H Creatinine 0.90 Estim Creat Clear Calc 47.9 Estimated GFR > 60 POC Glucose 99 88 Random Glucose 90 Calcium 9.5 Levetiracetam 06/06/24 07:21 WBC RBC Hgb Hct MCV MCH MCHC RDW Plt Count MPV Absolute Nucleated RBC Nucleated RBC % (auto) Sodium Potassium Chloride Carbon Dioxide Anion Gap BUN Creatinine Estim Creat Clear Calc Estimated GFR POC Glucose 86 Random Glucose Calcium Levetiracetam Preliminary micro results at discharge 06/02/24 19:34 Blood Culture - Preliminary Blood - Venous No growth after 48 hours. 06/02/24 19:34 Blood Culture - Preliminary Blood - Venous No growth after 48 hours. Discharge Plan Discharge Anticipated Discharge Date/Time: 06/06/24 11:13 Patient Disposition: Home Health Service Discharge Diagnosis: acute on chronic respiratory failure pulmonary aspiration breakthrough seizure Referrals: Cliff Walsh MD [Primary Care Provider] - 1 Week Discharge Medications: New levofloxacin 750 mg tablet 750 mg PO Q24H Qty: 5 0RF Continued loperamide 2 mg Capsule 2 mg PO Q4H PRN (Reason: Diarrhea) Rx Instructions: administer after each loose stool until symptoms controlled; do not exceed 8 mg per 24 hrs levetiracetam [Keppra] 250 mg Tablet 250 mg PO BID fluticasone propionate 220 mcg/actuation Hfa Aerosol Inhaler 1 puff INHALATION BID methimazole 5 mg tablet 2.5 mg PO DAILY albuterol sulfate [Ventolin HFA] 90 mcg/actuation HFA aerosol inhaler 2 puff inhalation Q6H PRN (Reason: wheezing) atorvastatin 80 mg tablet 80 mg PO BEDTIME albuterol sulfate 2.5 mg /3 mL (0.083 %) solution for nebulization 2.5 mg inhalation Q6H PRN (Reason: Shortness Of Breath Or Wheezing) folic acid 400 mcg tablet 0.4 mg PO DAILY acetaminophen 500 mg Tablet 500 mg PO BID cyanocobalamin (vitamin B-12) 500 mcg tablet 500 mcg PO DAILY oxybutynin chloride 5 mg tablet extended release 24hr 5 mg PO DAILY fluoxetine 20 mg capsule 20 mg PO DAILY zinc oxide 20 % Ointment 1 appl TOPICAL DAILY PRN (Reason: Wound Healing) Rx Instructions: apply to buttocks trazodone 100 mg tablet 100 mg PO BEDTIME furosemide 20 mg tablet 20 mg PO BID@0900,1700 pregabalin 150 mg capsule 150 mg PO TID cholecalciferol (vitamin D3) 25 mcg (1,000 unit) tablet 25 mcg PO DAILY metoprolol succinate 25 mg tablet extended release 24 hr 25 mg PO DAILY Held glipizide 5 mg tablet extended release 24hr 5 mg PO DAILY Hold Instructions: blood sugar stable off glipizide. hold for now, follow blood sugar and follow up with PCP clopidogrel 75 mg tablet 75 mg PO DAILY Hold Instructions: resume 06/10 if no bleeding noted and H/H stable aspirin 81 mg tablet,delayed release (DR/EC) 81 mg PO DAILY Hold Instructions: resume 06/10 if no bleeding noted and H/H stable Discharge Orders: Discharge Order (Routine); Ordered 06/06/24 Ordered By: Alysa Zhao Activity on Discharge: As tolerated Stand Alone Forms: Patient Portal Discharge page Print Language: Swazi Other Ambulatory Orders: Complete Blood Count Auto Diff (Routine) Timeframe: [id number] Facility: [facility] - Location: Laboratory Ordered By: Alysa Zhao Care Plan Goals: see below Health Concerns: pneumonia possible GI bleeding breakthrough seizure Plan of Treatment: complete course of antibiotics as prescribed for pneumonia Hold aspirin, Plavix until 06/10, can resume if no bleeding, and CBC is stable repeat CBC early next week NDD2 diet with thin liquids, aspiration precautions, outpatient follow up with speech therapy blood sugars under 140 off of glipizide, hold for now to prevent hypoglycemia and monitor blood sugar before meals and at bedtime call to schedule follow-up appointment with PCP Assessment: see discharge summary
[2024-06-06 11:13] LABS: Glucose, Whole Blood 118 mg/dL (60-115)
--- NOTE | 2024-06-06 11:28 | P.F2F_ITS ---
Service Date Service Date: 06/06/24 Encounter Date of encounter: 06/06/24 Reasons for Services Signs and symptoms assessed: will need retirement for close blood sugar monitoring, glipizide on hold. repeat CBC Sunday 06/10 Reason for retirement: monitoring of unstable blood sugar Overseeing Care: Cliff Walsh Homebound: Leaving the home is medically contraindicated at this time without the asist of a device and/or another person due th the listed conditions above and below. Reason homebound: bedbound/chairbound Certification: Based on the above findings, I certify that this patient is confined to the home and needs intermittent retirement care, physical therapy and/or speech therapy, or continues to need occupational therapy. The patient is under my care, and I have initiated the establishment of the plan of care. The patient will be followed by a physician who will periodically review the plan of care. Time Spent With Patient Time: Total time managing care of this patient today ____ minutes.
--- NOTE | 2024-06-06 11:52 | MHC.CM.PN ---
VNA services (SN) ARE being ordered. Patient was recently referred to [facility], by the PCP so a new referral has been made to [facility], who is aware of today's dc.
== END 2024-06-06 13:00 | disposition home health service (06) | DRG 208 ==
LOC: HO.ED 22:06 → HO.EDOVER 22:26 → HO.ICU 22:37 → HO.IMC 06-04 13:04
PROVIDERS: Hospitalist; Internal Medicine Critical Care Medicine; Internal Medicine Pulmonary Disease; Admitting Provider Nurse Practitioner Family; Emergency Provider Emergency Medicine; PCP Internal Medicine; Visit Provider Physician Assistant Medical
DX: J69.0 Pneumonitis due to inhalation of food and vomit (principal); J96.21 Acute and chronic respiratory failure with hypoxia; J96.22 Acute and chronic respiratory failure with hypercapnia; I69.354 Hemiplegia and hemiparesis following cerebral infarction affecting left non-dominant side; I50.32 Chronic diastolic (congestive) heart failure; K92.2 Gastrointestinal hemorrhage, unspecified; D64.9 Anemia, unspecified; E11.42 Type 2 diabetes mellitus with diabetic polyneuropathy; L89.152 Pressure ulcer of sacral region, stage 2; F39 Unspecified mood [affective] disorder; G40.909 Epilepsy, unspecified, not intractable, without status epilepticus; E05.90 Thyrotoxicosis, unspecified without thyrotoxic crisis or storm; I11.0 Hypertensive heart disease with heart failure; Z20.822 Contact with and (suspected) exposure to COVID-19; Z99.81 Dependence on supplemental oxygen; Z79.02 Long term (current) use of antithrombotics/antiplatelets; Z79.82 Long term (current) use of aspirin; Z79.899 Other long term (current) drug therapy
CPT/HCPCS: 36415; 70450; 71045; 71250; 74178; 80048; 80076; 80177; 80307; 81001; 82040; 82272; 82803; 82947; 83605; 83735; 83880; 84100; 84443; 84484; 85025; 85027; 85610; 87040; 87502; 87635; 92526; 92610; 93005; 94002; 94003; 94640; 99285; C1758; J0456; J0692; J0696; J1953; J1956; J2250; J2251; J2470; J2704; J2919; J3370; J3475; P9047; Q9967

== ENCOUNTER → 2024-06-02 21:25 | Outpatient (BNV) | payer MEDICARE, MEDICAID, SELFPAY | PROVIDERS: Admitting Provider Nurse Practitioner Family; Emergency Provider Emergency Medicine; Visit Provider Internal Medicine Pulmonary Disease | DX: J44.9 Chronic obstructive pulmonary disease, unspecified (principal); J96.02 Acute respiratory failure with hypercapnia; T17.900A Unspecified foreign body in respiratory tract, part unspecified causing asphyxiation, initial encounter; E11.9 Type 2 diabetes mellitus without complications | CPT/HCPCS: 99232; 99291 ==

== ENCOUNTER → 2024-06-02 21:25 | Outpatient (BNV) | payer MEDICARE, MEDICAID, SELFPAY | PROVIDERS: Admitting Provider Nurse Practitioner Family; Emergency Provider Emergency Medicine; PCP Internal Medicine; Visit Provider Hospitalist | DX: J44.9 Chronic obstructive pulmonary disease, unspecified (principal); R56.9 Unspecified convulsions; E11.9 Type 2 diabetes mellitus without complications; T17.900A Unspecified foreign body in respiratory tract, part unspecified causing asphyxiation, initial encounter | CPT/HCPCS: 99233; 99239; G0180 ==

== ENCOUNTER → 2024-06-02 21:25 | Outpatient (BNV) | payer MEDICARE, MEDICAID, SELFPAY | PROVIDERS: Admitting Provider Nurse Practitioner Family; Emergency Provider Emergency Medicine; PCP Internal Medicine; Visit Provider Internal Medicine Gastroenterology | DX: K92.2 Gastrointestinal hemorrhage, unspecified (principal) | CPT/HCPCS: 99223; 99232 ==

== ENCOUNTER → 2024-06-02 21:25 | Outpatient (BNV) | payer MEDICARE, MEDICAID, SELFPAY | PROVIDERS: Admitting Provider Nurse Practitioner Family; Emergency Provider Emergency Medicine; PCP Internal Medicine; Visit Provider Nurse Practitioner Family | DX: J69.0 Pneumonitis due to inhalation of food and vomit (principal); J96.02 Acute respiratory failure with hypercapnia; R56.9 Unspecified convulsions; K92.2 Gastrointestinal hemorrhage, unspecified | CPT/HCPCS: 99223 ==

== ENCOUNTER 2024-06-13 13:47 | Inpatient (IN) | payer MEDICARE, MEDICAID, SELFPAY ==
[2024-06-13] VITALS (10 sets, daily range): BP systolic 97–140; BP diastolic 40–95; PULSE 59–90; RESP 11–24; TEMP 36.2–37.4; O2SAT 94–98; BMI 31.0
--- NOTE | ~2024-06-13 | MR_ITS ---
EXAMINATION: MR BRAIN WITHOUT CONTRAST CLINICAL INFORMATION: Change in mental status COMPARISON: CT scan of brain on 06/13/2024 TECHNIQUE: MRI of the brain was obtained using routine sequences without contrast. FINDINGS: Ventricles, sulci and cisterns are dilated. Confluent and patchy abnormal T2 hyperintense lesions are seen in bilateral frontal and parietal subcortical and deep white matters. Chronic lacunar infarcts are seen in posterior right frausto radiata and anterior limb of right internal capsule. No focal cerebral, brainstem or cerebellar lesions with abnormal signal can be seen. Diffusion weighted images show no abnormal regional decrease in diffusion. Normal flow voids of major intracerebral blood vessels are seen in the visualized portion. The pituitary gland is markedly attenuated. Optic chiasm is not displaced. Cerebellar tonsils position is normal. Extensive bilateral mastoid effusions are present. MR/MR head/brain wo con IMPRESSION: 1. 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 2. Unchanged chronic lacunar infarcts in right frausto radiata and right internal capsule. 3. No acute cerebral infarction is seen. 4. No evidence of space occupying mass lesion could be found. 5. No evidence of intracranial hemorrhage. 6. Empty sella syndrome. 7. Persistent extensive bilateral mastoid effusions. Electronically signed by: Jocelyn Sandhu MD 06/14/2024 02:34 PM EST
--- NOTE | ~2024-06-13 | CT_ITS ---
EXAMINATION: CT HEAD WITHOUT CONTRAST CLINICAL INFORMATION: change in mental status COMPARISON: CT dated June 02, 2024. TECHNIQUE: Contiguous axial imaging was performed from the skull base to vertex without intravenous administration of contrast. This CT examination was performed using dose optimization techniques as appropriate, variously including the following: *Automated exposure control *Adjustment of mA and/or kV according to patient size (this includes techniques or standardized protocols for targeted exams where dose is matched to indication/reason for exam; i.e. extremities or head) *Use of iterative reconstruction technique DLP: 743 mGy-cm FINDINGS: No acute intracranial hemorrhage, mass effect, midline shift, hydrocephalus or herniation. Bilateral multifocal patchy and confluent deep periventricular white matter hypodensities involving centrum semiovale and frausto radiata. Multifocal old lacunar infarcts, basal ganglia extracapsular and frausto radiata white matter, supratentorial compartment. Focal encephalomalacia involving the right frontal frausto radiata and right external capsule/basal ganglia resulting in wallerian degeneration. Calcified plaques in the cavernous supraclinoid segments both ICA. Lundy-white matter differentiation is normal. Sellar/suprasellar region demonstrated CSF prominence related to diaphragmatic sella insufficiency. Craniocervical junction is intact and normal. There is attenuation within the mastoid air cells and tympanic cavities without osteolysis of the ossicles. There is no coalescent and mastoid air cells. Mucosal thickening in the paranasal sinuses. Osteopenia versus osteoporosis. Bony calvarium is intact. CT/CT head/brain wo IV con IMPRESSION: No acute intracranial hemorrhage. Small vessel occlusive disease. Superimposed acute stroke/nonhemorrhagic ischemia cannot be excluded. Acute inflammatory versus infectious processes, both mastoids/petrous bones. Electronically signed by: Goyo Chicas MD 06/13/2024 02:58 PM [facility]
--- NOTE | ~2024-06-13 | XR_ITS ---
EXAMINATION: XR CHEST CLINICAL INFORMATION: weakness COMPARISON: X-ray dated June 02, 2024. TECHNIQUE: Frontal view of the chest was obtained. FINDINGS: Meniscal shaped opacity mid to lower right hemithorax. Prominence of the interstitial markings. Haziness in the left lower hemithorax. Indistinct margins in the cardia mediastinal silhouette and perihilar region. Sternal wires and vascular clips in the mediastinum. Calcified plaque thoracic aorta. Vascular desiccation seen in the right axillary region. The endotracheal tube and NG tube have been removed. XR/XR chest 1V IMPRESSION: Pulmonary edema and bilateral pleural effusions) left, worsened since prior examination. Less than status post extubation and NG tube removal. Electronically signed by: Goyo Chicas MD 06/13/2024 03:46 PM JEISON JACK
--- NOTE | 2024-06-13 13:59 | ECG_ITS ---
Test Reason : AMS Blood Pressure : / mmHG Vent. Rate : 062 BPM Atrial Rate : 062 BPM P-R Int : 164 ms QRS Dur : 076 ms QT Int : 368 ms P-R-T Axes : 029 033 015 degrees QTc Int : 373 ms Normal sinus rhythm Normal ECG When compared with ECG of 02-JUN-2024 19:29, No significant change was found Referred By: Arlyn Greenberg Electronically Signed By:DAVID GOMES MD
--- NOTE | 2024-06-13 14:12 | ED.AMS ---
HPI - Altered Mental Status General Chief Complaint: Altered Mental Status Stated Complaint: UNRESPONSIVE FROM SNF,NO RESPONSE TO STIMULI,GCS10 Source: EMS and old records reviewed Mode of arrival: EMS Limitations: altered mental status History of Present Illness ED Provider: SUSY HPI narrative: 78 yo female with PMH of acute respiratory failure, seen here 06/02 for seizure (keppra) and during that event aspirated was intubated for respiratory failure - extubated the next day was sent home additional levaquin treatment to complete 7 day course. Per EMS patient is at [facility] and they report she has gone downhill for 2 days. No other reports of falls, or any other complaints, she is GCS 10 with EMS. No seizures reported to EMS. Patient is fighting to keep her eyes shut, when arms raised she holds them up they do not fall down. She has coughed and seems to be clearing her airway. Patient is minimally verbal at baseline and does not ambulate MD complaint: altered mental status and decreased responsiveness Onset (ago): day(s) (2) Timing confirmed by: caregiver Severity: severe Consistency of symptoms: unknown Context: history of similar presentation and seizure disorder Associated symptoms: denies other symptoms Related Data Home Medications ?Medication ?Instructions ?Recorded ?Confirmed acetaminophen 500 mg tablet 500 mg PO BID 08/02/23 06/03/24 albuterol sulfate 2.5 mg/3 mL 2.5 mg inhalation Q6H PRN 08/02/23 06/03/24 (0.083 %) solution for nebulization Shortness Of Breath Or Wheezing aspirin 81 mg tablet,delayed 81 mg PO DAILY 08/02/23 06/03/24 release atorvastatin 80 mg tablet 80 mg PO BEDTIME 08/02/23 06/03/24 cholecalciferol (vitamin D3) 25 25 mcg PO DAILY 08/02/23 06/03/24 mcg (1,000 unit) tablet clopidogrel 75 mg tablet 75 mg PO DAILY 08/02/23 06/03/24 cyanocobalamin (vitamin B-12) 500 500 mcg PO DAILY 08/02/23 06/03/24 mcg tablet fluoxetine 20 mg capsule 20 mg PO DAILY 08/02/23 06/03/24 folic acid 400 mcg tablet 0.4 mg PO DAILY 08/02/23 06/03/24 furosemide 20 mg tablet 20 mg PO BID@0900,1700 08/02/23 06/03/24 glipizide 5 mg tablet, extended 5 mg PO DAILY 08/02/23 06/03/24 release 24 hr metoprolol succinate 25 mg 25 mg PO DAILY 08/02/23 06/03/24 tablet,extended release 24 hr oxybutynin chloride 5 mg 5 mg PO DAILY 08/02/23 06/03/24 tablet,extended release 24 hr pregabalin 150 mg capsule 150 mg PO TID 08/02/23 06/03/24 trazodone 100 mg tablet 100 mg PO BEDTIME 08/02/23 06/03/24 zinc oxide 20 % topical ointment 1 appl topical DAILY PRN Wound 08/02/23 06/03/24 Healing fluticasone propionate 220 1 puff inhalation BID 09/10/23 06/03/24 mcg/actuation HFA aerosol inhaler levetiracetam 250 mg tablet 250 mg PO BID 09/10/23 06/03/24 (Keppra) loperamide 2 mg capsule 2 mg PO Q4H PRN Diarrhea 09/10/23 06/03/24 albuterol sulfate 90 mcg/actuation 2 puff inhalation Q6H PRN wheezing 04/18/24 06/03/24 aerosol inhaler (Ventolin HFA) methimazole 5 mg tablet 2.5 mg PO DAILY 04/18/24 06/03/24 Previous Rx's ?Medication ?Instructions ?Recorded levofloxacin 750 mg tablet 750 mg PO Q24H #5 tabs 06/06/24 Allergies Allergy/AdvReac Type Severity Reaction Status Date / Time Penicillins Allergy Unknown Verified 06/13/24 14:03 piroxicam Allergy Unknown Verified 06/13/24 14:03 shrimp Allergy Hives Verified 06/13/24 14:03 Sulfa (Sulfonamide Allergy Unknown Verified 06/13/24 14:03 Antibiotics) Review of Systems Review of Systems: ROS unable to be obtained due to altered mental status PMFSH Past Medical History Attestation statement: The following information was validated with the patient. Source: old records reviewed Medical History Non-insulin dependent type 2 diabetes mellitus COPD (chronic obstructive pulmonary disease) Peripheral neuropathy HLD (hyperlipidemia) CVA (cerebral vascular accident) Heart failure, unspecified Social History Social History Household Members: None Housing: Care Home Do you presently have visiting nurse or other home services: Yes Unable to assess alcohol history related to: Unknown Alcohol intake: former Comment: bedbound Patient Tobacco Use Status: Never used Tobacco Advance Directives: Yes Advance Directives on File: Yes Advance Directives Date on File: 09/15/23 service: No Physical Exam ED Vital Signs: Vital Signs - 24 hr 06/13/24 14:00 06/13/24 14:37 06/13/24 14:37 Temperature 99.2 F Pulse Rate 68 60 Respiratory Rate 17 20 20 Blood Pressure 109/40 L Pulse Oximetry 96 Oxygen Delivery Method Room Air 06/13/24 14:50 06/13/24 15:07 Temperature Pulse Rate Respiratory Rate 24 H 24 H Blood Pressure Pulse Oximetry Oxygen Delivery Method BMI result Body Mass Index 31.0 Appearance: Somnolent refuses to open eyes, moans to painful stimuli, holds both arms up when lifted do not fall, mild acute distress. Eyes: Pupils equal, round and reactive to light. ENT: Pharynx dry, atraumatic Neck: Normal inspection. Neck supple. CVS: Normal heart rate and rhythm. Pulses normal. Respiratory: No respiratory distress. Breath sounds normal. Abdomen: Soft and nontender. no grimace Skin: Skin warm and dry. Normal skin color. Normal skin turgor. Extremities: No lower extremity edema. Neuro: does not participate in exam but withdraws from tactile stimuli, refuses to open eyes, moans with pain or trying to talk to her, clearing her cough, GCS 9 Course Course Course Narrative: CRP lower than baseline doubt encephalitis Reevaluation(s) Reevaluation #1: mild kiran but pulm edema and BNP elevated at this time will trial lose dose lasix vs fluids she is doing great now awake alert tracking with eyes smiling will repeat VBG at 430 if better plan to admit Reevaluation #2: signed out to Dr. Dee pending workup Medications Administered Discontinued Medications Generic Name Dose Route Start Last Admin Trade Name Freq PRN Reason Stop Dose Admin Albuterol Sulfate 5 mg/ 0 mg 06/13/24 14:36 06/13/24 14:41 Albuterol/Ipratropium 3 ml INHALE 06/13/24 14:37 1 each ONCE ONE Administration Levofloxacin 750 mg in 150 mls @ 100 mls/hr 06/13/24 14:23 06/13/24 14:41 Levaquin IV 06/13/24 15:52 100 mls/hr ONCE ONE Administration Methylprednisolone Sodium Succinate 60 mg 06/13/24 14:23 06/13/24 14:40 Methylprednisolone Sod Succ 125 Mg/2 Ml Vial IVPUSH 06/13/24 14:24 60 mg ONCE ONE Administration Medical Decision Making Medical Decision Making [facility] Narrative: 78 yo female with PMH of acute respiratory failure, seen here 06/02 for seizure (keppra) minimally verbal at baseline and does not ambulate here with AMS x 2 days there is not much history will obtain labs, CXR, EKG, CT head for ICH, start on abx likely did not complete her course, IV steroids, will trial bipap and monitor carefully. Differential Diagnosis Differential Diagnoses: The differential diagnosis associated with the presentation includes seizure, hypercapnic resp failure, PNA Admission/Observation Consideration of admission/observation: Escalation of care including admission/observation considered admit for further workup Lab Data [facility] Lab Attestation statement: I reviewed the patient's lab results. 06/13/24 14:09 06/13/24 14:07 Labs: Lab Results 06/13/24 06/13/24 06/13/24 Range/Units 14:07 14:08 14:09 WBC 6.0 (4.8-10.8) X10*3/uL RBC 3.48 L (4.20-5.50) X10*6/uL Hgb 8.7 L (12.0-16.0) g/dl Hct 29.2 L (37.0-47.0) % MCV 83.9 (80.0-98.0) fL MCH 25.0 L (27.0-33.0) pg MCHC 29.8 L (31.0-35.0) g/dl RDW 15.5 (11.0-16.0) % Plt Count 169 (160-400) X10*3/uL MPV 10.6 (9.4-12.3) fL Immature Gran % (Auto) 0.8 H (0.0-0.4) % Neut % (Auto) 72.4 (45-73) % Lymph % (Auto) 16.6 L (20-40) % [place] % (Auto) 9.7 (2-11) % Eos % (Auto) 0.2 (0-4) % Baso % (Auto) 0.3 (0-2) % Lymph # (Auto) 1.0 L (1.2-4.9) X10*3/uL [place] # (Auto) 0.6 (0.1-1.2) X10*3/uL Eos # (Auto) 0.0 (0.0-0.4) X10*3/uL Baso # (Auto) 0.0 (0.0-0.2) X10*3/uL Abs Immat Gran (auto) 0.05 H (0.00-0.03) X10*3/uL Absolute Neuts (auto) 4.3 (2.0-8.3) x10*3/uL Absolute Nucleated RBC 0.000 (0.0-0.012) X10*3/uL Nucleated RBC % (auto) 0.0 (0.0-0.2) /100WBC VBG pH (7.32-7.43) VBG pCO2 mmHg VBG pO2 mmHg VBG HCO3 (22-26) mmol/L VBG O2 Saturation % VBG Base Excess mmol/L Sodium 147 H (135-145) mmol/L Potassium 4.7 (3.3-5.1) mmol/L Chloride 104 (96-108) mmol/L Carbon Dioxide 39 H (22-29) mmol/L Anion Gap 9 L (12-20) BUN 26 H (9-16) mg/dL Creatinine 1.57 H (0.5-1.4) mg/dL Estim Creat Clear Calc 28.3 Estimated GFR 32 Random Glucose 113 (60-115) mg/dL Lactic Acid 0.5 (0.5-2.0) mmol/L Calcium 9.5 (8.4-10.2) mg/dL Magnesium 1.8 (1.6-2.6) mg/dL Total Bilirubin 0.3 (0.0-1.0) mg/dL Direct Bilirubin 0.1 (0.0-0.5) mg/dL AST 14 (5-31) U/L ALT < 6 (0-31) U/L Alkaline Phosphatase 53 (39-117) U/L Ammonia 41 (13-55) umol/L Total Creatine Kinase 17 L (26-140) U/L Troponin I High Sens 14.8 D (<3.5-17.0) ng/L C-Reactive Protein 1.24 H (< or = 0.50) mg/dL B-Natriuretic Peptide 919 H (<100) pg/mL Total Protein 6.9 (6.5-8.0) g/dL Albumin 3.5 (3.5-5.0) g/dL Lipase 11 (8-78) U/L Procalcitonin 0.04 ng/mL TSH 1.65 (0.32-4.0) uIU/mL Influenza Type A (PCR) (Negative) Influenza Type B (PCR) (Negative) RSV RNA Qual (PCR) (Negative) SARS-CoV-2 RNA (RT-PCR) (Negative) 06/13/24 06/13/24 Range/Units 14:13 14:18 WBC (4.8-10.8) X10*3/uL RBC (4.20-5.50) X10*6/uL Hgb (12.0-16.0) g/dl Hct (37.0-47.0) % MCV (80.0-98.0) fL MCH (27.0-33.0) pg MCHC (31.0-35.0) g/dl RDW (11.0-16.0) % Plt Count (160-400) X10*3/uL MPV (9.4-12.3) fL Immature Gran % (Auto) (0.0-0.4) % Neut % (Auto) (45-73) % Lymph % (Auto) (20-40) % [place] % (Auto) (2-11) % Eos % (Auto) (0-4) % Baso % (Auto) (0-2) % Lymph # (Auto) (1.2-4.9) X10*3/uL [place] # (Auto) (0.1-1.2) X10*3/uL Eos # (Auto) (0.0-0.4) X10*3/uL Baso # (Auto) (0.0-0.2) X10*3/uL Abs Immat Gran (auto) (0.00-0.03) X10*3/uL Absolute Neuts (auto) (2.0-8.3) x10*3/uL Absolute Nucleated RBC (0.0-0.012) X10*3/uL Nucleated RBC % (auto) (0.0-0.2) /100WBC VBG pH 7.29 L (7.32-7.43) VBG pCO2 90 mmHg VBG pO2 110 mmHg VBG HCO3 43 H (22-26) mmol/L VBG O2 Saturation 99.0 % VBG Base Excess 14.2 mmol/L Sodium (135-145) mmol/L Potassium (3.3-5.1) mmol/L Chloride (96-108) mmol/L Carbon Dioxide (22-29) mmol/L Anion Gap (12-20) BUN (9-16) mg/dL Creatinine (0.5-1.4) mg/dL Estim Creat Clear Calc Estimated GFR Random Glucose (60-115) mg/dL Lactic Acid (0.5-2.0) mmol/L Calcium (8.4-10.2) mg/dL Magnesium (1.6-2.6) mg/dL Total Bilirubin (0.0-1.0) mg/dL Direct Bilirubin (0.0-0.5) mg/dL AST (5-31) U/L ALT (0-31) U/L Alkaline Phosphatase (39-117) U/L Ammonia (13-55) umol/L Total Creatine Kinase (26-140) U/L Troponin I High Sens (<3.5-17.0) ng/L C-Reactive Protein (< or = 0.50) mg/dL B-Natriuretic Peptide (<100) pg/mL Total Protein (6.5-8.0) g/dL Albumin (3.5-5.0) g/dL Lipase (8-78) U/L Procalcitonin ng/mL TSH (0.32-4.0) uIU/mL Influenza Type A (PCR) NEGATIVE (Negative) Influenza Type B (PCR) NEGATIVE (Negative) RSV RNA Qual (PCR) NEGATIVE (Negative) SARS-CoV-2 RNA (RT-PCR) NEGATIVE (Negative) Independent Interpretation I performed an independent interpretation of an: EKG, Plain X-Ray (pulm edema effusions) and CT Scan (no ICH) Interpretation: Rate: 62 Rhythm: NSR [place]: normal Normal P waves. Normal CARLY. Normal QRS complex. ST T wave : flat t waves aVF, inverted t wave III, no MICHELLE qTC: 373 prior studies: no acute ischemia The study has been interpreted contemporaneously by me. . Radiology Impression Discussion of test interpretation with radiology: I have reviewed the radiologist's reading. Independent Historian Clinical information obtained from an independent historian. History obtained from or confirmed by: EMS External Record Review External record reviewed: Inpatient record and Outpatient record Discharge Plan Discharge Clinical Impression: Delirium due to general medical condition, Acute hypercapnic respiratory failure, KIRAN (acute kidney injury) Patient Disposition: Admitted As Inpatient Print Language: [place]
[2024-06-13 14:13] LABS: MANUAL DIFF FLAG NO
[2024-06-13 14:17] LABS: VBG Base Excess 14.2 mmol/L; VBG HCO3 43 mmol/L (22-26); VBG pCO2 90 mmHg; VBG pH 7.29 (7.32-7.43); VBG pO2 110 mmHg
[2024-06-13 14:17] LABS: Venous Blood Gas Refer to POC result
[2024-06-13 14:17] LABS: Basophils Percent Auto 0.3 % (0-2); Eosinophils Percent Auto 0.2 % (0-4); Hematocrit 29.2 % (37.0-47.0); Hemoglobin 8.7 g/dl (12.0-16.0); Imm Gran Abs Auto 0.05 X10*3/uL (0.00-0.03); Imm Gran Pct Auto 0.8 % (0.0-0.4); Lymphocytes Percent Auto 16.6 % (20-40); Mean Corpuscular HGB Conc 29.8 g/dl (31.0-35.0); Mean Corpuscular Volume 83.9 fL (80.0-98.0); Mean Platelet Volume 10.6 fL (9.4-12.3); Monocytes Absolute Auto 0.6 X10*3/uL (0.1-1.2); Monocytes Percent Auto 9.7 % (2-11); Neutrophils Absolute Auto 4.3 x10*3/uL (2.0-8.3); Neutrophils Percent Auto 72.4 % (45-73); Platelet Count 169 X10*3/uL (160-400); Red Blood Count 3.48 X10*6/uL (4.20-5.50); Red Cell Distribution Width 15.5 % (11.0-16.0)
[2024-06-13 14:26] LABS: Ammonia 41 umol/L (13-55)
[2024-06-13 14:34] LABS: Lactic Acid 0.5 mmol/L (0.5-2.0)
[2024-06-13 14:40] LABS: Troponin-I High Sensitivity 14.8 ng/L (<3.5-17.0)
[2024-06-13] MEDS: methylPREDNISolone Sod Succ 125 MG/2 ML VIAL 60 MG IVPUSH (14:40)
[2024-06-13 14:41] LABS: Alanine Aminotransferase < 6 U/L (0-31); Albumin Level 3.5 g/dL (3.5-5.0); Alkaline Phosphatase 53 U/L (39-117); Anion Gap 9 (12-20); Aspartate Amino Transferase 14 U/L (5-31); Bilirubin Direct 0.1 mg/dL (0.0-0.5); Bilirubin Total 0.3 mg/dL (0.0-1.0); Blood Urea Nitrogen 26 mg/dL (9-16); C Reactive Protein 1.24 mg/dL (< or = 0.50); Calcium 9.5 mg/dL (8.4-10.2); Carbon Dioxide 39 mmol/L (22-29); Chloride 104 mmol/L (96-108); Creatinine Clr Calc Pharmacy 28.3; Estimated Glomerular Filt Rate 32; Glucose Random 113 mg/dL (60-115); Lipase 11 U/L (8-78); Magnesium 1.8 mg/dL (1.6-2.6); Potassium 4.7 mmol/L (3.3-5.1); Sodium 147 mmol/L (135-145); Total Protein 6.9 g/dL (6.5-8.0)
[2024-06-13] MEDS: levoFLOXacin/D5W 750 MG/150 ML PIGGYBACK 100 MG IV (14:41)
[2024-06-13] MEDS: Albuterol Sulfate 5 MG, Albuterol/Iprat 2.5/0.5MG 3 ML 3 ML INHALE (14:41)
[2024-06-13 14:44] LABS: B Type Natriuretic Peptide 919 pg/mL (<100)
--- NOTE | 2024-06-13 14:53 | PC.NURSE ---
patient presented to ED via ems from [facility]. patient recently d/c after aspiration pneumonia. patient minimally responsive to painful stimuli, did not respond to IV placement. pupils equal and reactive- noted that patient resists to eyes opening. #20 placed in Rhand. patient placed on bipap by RT, resp even and unlabored. patient noted to have stage 2 pressure injury to coccyx, otherwise skin dry and intact.
[2024-06-13 14:54] LABS: Procalcitonin 0.04 ng/mL; TSH reflex Free T4 1.65 uIU/mL (0.32-4.0)
[2024-06-13 15:08] LABS: Influenza A PCR NEGATIVE (Negative); Influenza B PCR NEGATIVE (Negative); Resp Syncy Virus RNA Qual PCR NEGATIVE (Negative); SARS COV2 PCR INHOUSE NEGATIVE (Negative)
[2024-06-13 16:28] LABS: VBG Base Excess 14.3 mmol/L; VBG HCO3 43 mmol/L (22-26); VBG pCO2 84 mmHg; VBG pH 7.31 (7.32-7.43); VBG pO2 54 mmHg
[2024-06-13 16:29] LABS: Venous Blood Gas Refer to POC result
--- NOTE | 2024-06-13 16:52 | ECG_ITS ---
Test Reason : EKG CHANGES Blood Pressure : / mmHG Vent. Rate : 068 BPM Atrial Rate : 068 BPM P-R Int : 140 ms QRS Dur : 084 ms QT Int : 354 ms P-R-T Axes : 056 020 009 degrees QTc Int : 376 ms Normal sinus rhythm Normal ECG When compared with ECG of 13-JUN-2024 14:35, No significant change was found Referred By: Lele Dee Electronically Signed By:DAVID GOMES MD
[2024-06-13] MEDS: Furosemide 20 MG/2 ML VIAL IVPUSH ×2 (16:54→20:53)
[2024-06-13 16:57] LABS: Appearance Urine Clear; Color Urine Yellow; Glucose Urine UA Negative (Negative); Leukocyte Esterase Urine Negative (Negative); Nitrite Urine Negative (Negative); UMIC TRIGGER UACC YES; Urine Blood Trace (Negative); Urine Ketones Negative (Negative); Urine Protein Negative (Neg-Trace)
--- NOTE | 2024-06-13 16:58 | PC.NURSE ---
patient had 300 cc yellow urine output post gilelspie insertion. patient tolerated well,
[2024-06-13 17:10] LABS: Bacteria Urine None Seen (None Seen); Hyaline Casts Urine 0-2 /LPF (0-2); WBC Urine 0-5 /HPF (0-5)
--- NOTE | 2024-06-13 19:45 | MHC.EDTECH ---
This pct assumed care of Patient at 1900 ,vitals taken ,vbg drawn and sent to lab ,Patient bedding change ,Patient was clean up ,clean gown given ,Patient belongings list done ,Patient alert ,awake watching television ,All safety measure in Place .
[2024-06-13 20:05] LABS: VBG Base Excess 13.5 mmol/L; VBG HCO3 36 mmol/L (22-26); VBG pCO2 41 mmHg; VBG pH 7.56 (7.32-7.43); VBG pO2 102 mmHg
[2024-06-13 20:05] LABS: Venous Blood Gas Refer to POC result
--- NOTE | 2024-06-13 20:13 | P.HPHOSP_ITS ---
History of Present Illness Date of Service: 06/13/24 Attending physician on admission: Yong Andre Chief Complaint: Lethargy, confusion, decreased responsiveness Pt is a 78-year-old female with a PMH significant for acute hypercapnic respiratory failure, COPD on home O2, CHF unspecified, history of CVA with left- sided weakness, seizure disorder [id number] type 2 diabetes,?HTN, HLD, and dementia who presents to the ED from [facility] for evaluation of unresponsiveness and no response to painful stimuli. [place] coma score 10 according to EMS upon arrival. Patient is confused, oriented to self only, and minimally verbal at baseline. Patient also is bed-bound and requires Trevor lift for transport at baseline. Patient seen and evaluated at bedside where she is resting comfortably in bed. HPI obtained from chart and provider review. Staff report patient had been declining for the past 2 days with increased lethargy. Staff at facility unaware of any acute medical complaints from the patient, including pain or recent falls. Initial VBG found respiratory acidosis with pH of 7.29 with pCO2 90 and bicarb 43. Patient was placed on BiPAP with good response and eventually transitioned 2 L NC where she was satting at 95%. Repeat VBG improved, showing pH 7.56 with pCO2 41 and bicarb 46. In the ED pt was tachypneic to 24 and with soft BP as low as 109/40. Labs were significant for sodium 147, creatinine 1.57 (increased from 0.90 on 06/06/2024), and BNP 919. No leukocytosis. Stable microcytic anemia of 8.7/29.2. Hepatic function baseline. Ammonia WNL at 41. Procalcitonin WNL at 0.04. UA Likely negative for UTI. Tested negative for COVID, RSV, flu. CXR showed pulmonary edema and bilateral pleural effusions left worse than prior. CT?of head showed no acute intracranial hemorrhage, but showed small-vessel occlusive disease though superimposed acute stroke at nonhemorrhagic ischemia can not be excluded. EKG demonstrated normal sinus rhythm without evidence of acute ST elevations or depressions. Repeat EKG similar to prior. Pt was treated with Solu-Medrol, levofloxacin, DuoNebs, and furosemide. Pt will be admitted to the hospital for treatment and further evaluation of acute on chronic hypoxic and hypercapnic respiratory failure in the setting of acute CHF exacerbation. Review of Systems 2 Review of Systems: Yes Unobtainable due to mental status [facility] Medical History Non-insulin dependent type 2 diabetes mellitus COPD (chronic obstructive pulmonary disease) Peripheral neuropathy HLD (hyperlipidemia) CVA (cerebral vascular accident) Heart failure, unspecified Social History Household Members: None Housing: Long-Term Do you presently have visiting nurse or other home services: Yes Unable to assess alcohol history related to: Unknown Alcohol intake: former Comment: bedbound Patient Tobacco Use Status: Never used Tobacco Advance Directives: Yes Advance Directives on File: Yes Advance Directives Date on File: 09/15/23 service: No Meds Allergies Allergy/AdvReac Type Severity Reaction Status Date / Time Penicillins Allergy Unknown Verified 06/13/24 14:03 piroxicam Allergy Unknown Verified 06/13/24 14:03 shrimp Allergy Hives Verified 06/13/24 14:03 Sulfa (Sulfonamide Allergy Unknown Verified 06/13/24 14:03 Antibiotics) Active Medications: Current Medications Acetaminophen (Acetaminophen 325 Mg Tablet) 650 mg PO Q6H PRN PRN Reason: Pain, Mild (Pain Scale 1-3), fever or headache Calcium Carbonate (Calcium Carbonate 750 Mg Tab.Chew) 750 mg PO Q4H PRN PRN Reason: Heartburn Enoxaparin Sodium (Enoxaparin Sodium 30 Mg/0.3 Ml Syringe) 30 mg SUBCUT Q24H [facility] Magnesium Hydroxide (Milk Of Magnesia 30 Ml Oral.Susp) 30 ml PO DAILY PRN PRN Reason: Constipation Melatonin (Melatonin 3 Mg Tablet) 6 mg PO BEDTIME PRN PRN Reason: Insomnia Ondansetron HCl (Ondansetron Hcl 4 Mg/2 Ml Vial) 4 mg IVPUSH Q8H PRN PRN Reason: Nausea and Vomiting Sodium Chloride (0.9 % Sodium Chloride Flush 3 Ml Syringe) 3 ml IVFLUSH QSHIFT [facility] Home Medications ?Medication ?Instructions ?Recorded ?Confirmed ?Last Taken ?Type acetaminophen 500 mg tablet 500 mg PO BID 08/02/23 06/03/24 06/02/24 History albuterol sulfate 2.5 mg/3 mL 2.5 mg inhalation Q6H PRN 08/02/23 06/03/24 Unknown History (0.083 %) solution for nebulization Shortness Of Breath Or Wheezing aspirin 81 mg tablet,delayed 81 mg PO DAILY 08/02/23 06/03/24 06/02/24 History release atorvastatin 80 mg tablet 80 mg PO BEDTIME 08/02/23 06/03/24 06/02/24 History cholecalciferol (vitamin D3) 25 25 mcg PO DAILY 08/02/23 06/03/24 06/02/24 History mcg (1,000 unit) tablet clopidogrel 75 mg tablet 75 mg PO DAILY 08/02/23 06/03/24 06/02/24 History cyanocobalamin (vitamin B-12) 500 500 mcg PO DAILY 08/02/23 06/03/24 06/02/24 History mcg tablet fluoxetine 20 mg capsule 20 mg PO DAILY 08/02/23 06/03/24 06/02/24 History folic acid 400 mcg tablet 0.4 mg PO DAILY 08/02/23 06/03/24 06/02/24 History furosemide 20 mg tablet 20 mg PO BID@0900,1700 08/02/23 06/03/24 06/02/24 History glipizide 5 mg tablet, extended 5 mg PO DAILY 08/02/23 06/03/24 06/02/24 History release 24 hr metoprolol succinate 25 mg 25 mg PO DAILY 08/02/23 06/03/24 06/02/24 History tablet,extended release 24 hr oxybutynin chloride 5 mg 5 mg PO DAILY 08/02/23 06/03/24 06/02/24 History tablet,extended release 24 hr pregabalin 150 mg capsule 150 mg PO TID 08/02/23 06/03/24 06/02/24 History trazodone 100 mg tablet 100 mg PO BEDTIME 08/02/23 06/03/24 06/02/24 History zinc oxide 20 % topical ointment 1 appl topical DAILY PRN Wound 08/02/23 06/03/24 Unknown History Healing fluticasone propionate 220 1 puff inhalation BID 09/10/23 06/03/24 06/02/24 History mcg/actuation HFA aerosol inhaler levetiracetam 250 mg tablet 250 mg PO BID 09/10/23 06/03/24 06/02/24 History (Keppra) loperamide 2 mg capsule 2 mg PO Q4H PRN Diarrhea 09/10/23 06/03/24 Unknown History albuterol sulfate 90 mcg/actuation 2 puff inhalation Q6H PRN wheezing 04/18/24 06/03/24 Unknown History aerosol inhaler (Ventolin HFA) methimazole 5 mg tablet 2.5 mg PO DAILY 04/18/24 06/03/24 06/02/24 History Physical Exam 2 Vital Signs and Narrative: Vital Signs: Last Vital Signs Temp 99.3 F 06/13/24 19:40 Pulse 73 06/13/24 19:40 Resp 14 06/13/24 19:40 BP 140/58 H 06/13/24 19:40 Pulse Ox 94 06/13/24 19:40 O2 Del Method Nasal Cannula 06/13/24 19:40 O2 Flow Rate 2 06/13/24 19:40 FiO2 30 06/13/24 16:03 BMI result Body Mass Index 31.0 General: Alert and oriented to person only, in no acute distress Resp: Difficult to auscultate due to patient's body habitus and dementia. No significant adventitious breath sounds heard CVS: S1, S2, RRR GI: +BS, NT, no distention Skin: Warm, dry Neuro: Cranial nerves II-XII grossly intact bilaterally. Motor grossly intact of upper extremities. Strength diminished but symmetrical of upper extremities bilaterally. Strength of bilateral extremities severely diminished, patient unable to significantly move either leg. Extremities: No edema Psych: Pleasantly confused Results Labs 06/13/24 14:09 06/13/24 14:07 Labs: Laboratory Results - last 24 hr 06/13/24 06/13/24 06/13/24 14:07 14:08 14:09 MCV 83.9 MCH 25.0 L MCHC 29.8 L RDW 15.5 Plt Count 169 MPV 10.6 Immature Gran % (Auto) 0.8 H Neut % (Auto) 72.4 Lymph % (Auto) 16.6 L [place] % (Auto) 9.7 Eos % (Auto) 0.2 Baso % (Auto) 0.3 Lymph # (Auto) 1.0 L [place] # (Auto) 0.6 Eos # (Auto) 0.0 Baso # (Auto) 0.0 Abs Immat Gran (auto) 0.05 H Absolute Neuts (auto) 4.3 Absolute Nucleated RBC 0.000 Nucleated RBC % (auto) 0.0 VBG pH VBG pCO2 VBG pO2 VBG HCO3 VBG O2 Saturation VBG Base Excess Anion Gap 9 L Estim Creat Clear Calc 28.3 Estimated GFR 32 Random Glucose 113 Lactic Acid 0.5 Calcium 9.5 Magnesium 1.8 Total Bilirubin 0.3 Direct Bilirubin 0.1 AST 14 ALT < 6 Alkaline Phosphatase 53 Ammonia 41 Total Creatine Kinase 17 L Troponin I High Sens 14.8 D C-Reactive Protein 1.24 H B-Natriuretic Peptide 919 H Total Protein 6.9 Albumin 3.5 Lipase 11 Procalcitonin 0.04 TSH 1.65 Urine Color Urine Appearance Urine pH Ur Specific [place] Urine Protein Urine Glucose (UA) Urine Ketones Urine Blood Urine Nitrite Ur Leukocyte Esterase Urine RBC Urine WBC Ur Squamous Epith Cells Urine Bacteria Hyaline Casts Urine Yeast Influenza Type A (PCR) Influenza Type B (PCR) RSV RNA Qual (PCR) SARS-CoV-2 RNA (RT-PCR) 06/13/24 06/13/24 06/13/24 14:13 14:18 16:23 MCV MCH MCHC RDW Plt Count MPV Immature Gran % (Auto) Neut % (Auto) Lymph % (Auto) [place] % (Auto) Eos % (Auto) Baso % (Auto) Lymph # (Auto) [place] # (Auto) Eos # (Auto) Baso # (Auto) Abs Immat Gran (auto) Absolute Neuts (auto) Absolute Nucleated RBC Nucleated RBC % (auto) VBG pH 7.29 L 7.31 L VBG pCO2 90 84 VBG pO2 110 54 VBG HCO3 43 H 43 H VBG O2 Saturation 99.0 87.0 VBG Base Excess 14.2 14.3 Anion Gap Estim Creat Clear Calc Estimated GFR Random Glucose Lactic Acid Calcium Magnesium Total Bilirubin Direct Bilirubin AST ALT Alkaline Phosphatase Ammonia Total Creatine Kinase Troponin I High Sens C-Reactive Protein B-Natriuretic Peptide Total Protein Albumin Lipase Procalcitonin TSH Urine Color Urine Appearance Urine pH Ur Specific [place] Urine Protein Urine Glucose (UA) Urine Ketones Urine Blood Urine Nitrite Ur Leukocyte Esterase Urine RBC Urine WBC Ur Squamous Epith Cells Urine Bacteria Hyaline Casts Urine Yeast Influenza Type A (PCR) NEGATIVE Influenza Type B (PCR) NEGATIVE RSV RNA Qual (PCR) NEGATIVE SARS-CoV-2 RNA (RT-PCR) NEGATIVE 06/13/24 06/13/24 16:41 19:42 MCV MCH MCHC RDW Plt Count MPV Immature Gran % (Auto) Neut % (Auto) Lymph % (Auto) [place] % (Auto) Eos % (Auto) Baso % (Auto) Lymph # (Auto) [place] # (Auto) Eos # (Auto) Baso # (Auto) Abs Immat Gran (auto) Absolute Neuts (auto) Absolute Nucleated RBC Nucleated RBC % (auto) VBG pH 7.56 H VBG pCO2 41 VBG pO2 102 VBG HCO3 36 H VBG O2 Saturation 99.0 VBG Base Excess 13.5 Anion Gap Estim Creat Clear Calc Estimated GFR Random Glucose Lactic Acid Calcium Magnesium Total Bilirubin Direct Bilirubin AST ALT Alkaline Phosphatase Ammonia Total Creatine Kinase Troponin I High Sens C-Reactive Protein B-Natriuretic Peptide Total Protein Albumin Lipase Procalcitonin TSH Urine Color Yellow Urine Appearance Clear Urine pH 5.0 Ur Specific [place] 1.010 Urine Protein Negative Urine Glucose (UA) Negative Urine Ketones Negative Urine Blood Trace H Urine Nitrite Negative Ur Leukocyte Esterase Negative Urine RBC 3-5 H Urine WBC 0-5 Ur Squamous Epith Cells 11-20 Urine Bacteria None Seen Hyaline Casts 0-2 Urine Yeast Present Influenza Type A (PCR) Influenza Type B (PCR) RSV RNA Qual (PCR) SARS-CoV-2 RNA (RT-PCR) Imaging Radiologist's Impressions: Impressions Chest X-Ray 06/13/24 14:00 IMPRESSION: Pulmonary edema and bilateral pleural effusions) left, worsened since prior examination. Less than status post extubation and NG tube removal. Electronically signed by: Goyo Chicas MD 06/13/2024 03:46 PM EST RP Head CT 06/13/24 14:00 IMPRESSION: No acute intracranial hemorrhage. Small vessel occlusive disease. Superimposed acute stroke/nonhemorrhagic ischemia cannot be excluded. Acute inflammatory versus infectious processes, both mastoids/petrous bones. Electronically signed by: Goyo Chicas MD 06/13/2024 02:58 PM EST RP Assessment and Plan (1) KIRAN (acute kidney injury): Status: Acute (2) Acute hypercapnic respiratory failure: Status: Acute Plan Pt is a 78-year-old female with a PMH significant for acute hypercapnic respiratory failure, COPD on home O2, CHF unspecified, history of CVA with left- sided weakness, seizure disorder [id number] type 2 diabetes,?HTN, HLD, and dementia who presents to the ED from [facility] for evaluation of unresponsiveness and no response to painful stimuli. Pt will be admitted to the hospital for treatment and further evaluation of acute on chronic hypoxic and hypercapnic respiratory failure in the setting of acute CHF exacerbation. Acute on chronic hypercapnic and hypoxic respiratory failure in the setting of acute CHF exacerbation Initial VBG with respiratory acidosis of pH 7.29, pCO2 90, and bicarb 43 Repeat improved with pH 7.56 with pCO2 41, and bicarb 46 after BiPAP BNP elevated at 919, CXR showing pulmonary edema and bilateral pleural effusions Will treat with DuoNebs, supplemental oxygen Lasix 40 mg b.i.d. Echocardiogram Follow lytes, I/O, daily weights Low-salt diet Monitor on telemetry KIRAN Creatinine 1.57 at time of presentation, elevated from 0.90 on 06/06/2024 Likely cardiorenal Treat as above Follow creatinine Abnormal CT findings CTA of head found no acute intracranial hemorrhage, but showed small-vessel occlusive disease with superimposed acute stroke/nonhemorrhagic ischemia not able to be excluded Patient with prior CVA with residual left-sided hemiparesis, confused with advanced dementia at baseline, difficult to evaluate for focal deficit We will get MRI of head/brain COPD Not in acute exacerbation Continue home inhalers DuoNebs Procalcitonin 0.04, CXR negative for consolidation, no need to continue antibiotics at this time Hx of CVA/HLD Continue aspirin, clopidogrel, statin Seizure disorder Continue Keppra Hyperparathyroidism Continue methimazole HTN Continue metoprolol Full Code Attending:?Dr. Andre DVT Prophylaxis: Lovenox Pt will require a hospitalization of at least two nights for treatment of?acute on chronic hypercapnic and hypoxic respiratory failure in the setting of CHF exacerbation. Patient will require administration of supplemental oxygen and IV Lasix, as well as close monitoring of respiratory status and electrolytes. Quality Stroke Does the patient have a stroke diagnosis?: No VTE Prior VTE?: No VTE Risk Level:: Medical - moderate - high VTE Device Contraindication: Treatment Not Indicated VTE Drug Contraindication: N/A - Med Ordered
[2024-06-13] MEDS: Enoxaparin Sodium 30 MG/0.3 ML SYRINGE SUBCUT (20:53)
[2024-06-13] MEDS: levETIRAcetam 250 MG TABLET PO (21:17)
--- NOTE | 2024-06-13 21:28 | PC.NURSE ---
Patient repositioned in bed with assistance of 3 persons. Tolerated well, no distress noted.
--- NOTE | 2024-06-13 22:39 | PHA.MEDREC ---
Addendum entered by Jim Cartwright [facility] 06/14/24 12:51: Med list was readable when faxed 2nd time. Clopidogrel and glipizide are on the list so they were confirmed but aspirin 81 mg is not so still unable to confirm. Addendum entered by Frida Bowles 06/14/24 11:58: Following up from 06/13/24 made multiple attempt to get a list faxed to us from HCP Mariely, however unable to read due to it being all grayed out. Called a few times to have it re-faxed. Utilized claims to confirm med list. Left Asprin 81 mg, Clopidogrel 75 mg and Glipizide 5 mg un confirmed because not sure if patient is taking. Will notify DR and evening med rec team. Addendum entered by Onelia Metzger [facility] 06/13/24 22:51: reviewed by [facility]. Original Note: Pharmacy Consult ? Medication Reconciliation Pharmacy has completed the medication reconciliation. Went to look for paperwork from patient facility but patients file was misplaced and nursing or Dr's did not know where it went. I called patients contact Mariely around [phone] and explained that we dont have any paperwork for the patient anymore and she states she would send us a new list of medications, I called back atound [phone] and she explained that they were not able to fax it until tomorrow but stated also that the discharge packet from 06/06 was up to date and nothing should of changed and she finished the Levofloxacin in the last few days she stated. When I asked her about the Aspirin 81, Clopidogrel and Glipizide still being on hold until the or until she saw her PCP, Mariely was confused and did not know anything about those medications being on hold and said she will follow up with that on the med list but the patient just saw her PCP and anything updated is on her med list. I utilized the discharge packet to confirm what I can and then when we get the med list morning team will follow up and update.
[2024-06-14] VITALS (12 sets, daily range): BP systolic 95–144; BP diastolic 44–66; PULSE 57–80; RESP 12–18; TEMP 36.2–37.2; O2SAT 90–100; BMI 32.0
[2024-06-14] MEDS: 0.9 % Sodium Chloride Flush 3 ML SYRINGE IVFLUSH ×4 (00:15→20:46)
[2024-06-14] MEDS: traZODone HCL 100 MG TABLET PO (00:15)
--- NOTE | 2024-06-14 01:36 | MHC.EDTECH ---
Rounding done ,vitals taken,RN Padmini is aware of Patient low blood Pressure and that Pt has a foam dressing on her coccyx ,Patient was reposition and boosted up in bed ,Patient was assisted and drank 120 ml water .
--- NOTE | 2024-06-14 06:26 | MHC.EDTECH ---
0600 rounding done ,vitals taken ,Patient drank 120 ml orange juice ,gillespie bag empty ,Patient was reposition and boosted up in bed .
--- NOTE | 2024-06-14 06:36 | MHC.EDTECH ---
Morning labs drawn and sent to lab .
[2024-06-14 06:52] LABS: Anion Gap 14 (12-20); Blood Urea Nitrogen 25 mg/dL (9-16); Calcium 9.4 mg/dL (8.4-10.2); Carbon Dioxide 36 mmol/L (22-29); Chloride 100 mmol/L (96-108); Creatinine Clr Calc Pharmacy 32.3; Estimated Glomerular Filt Rate 36; Glucose Random 103 mg/dL (60-115); Potassium 4.4 mmol/L (3.3-5.1); Sodium 146 mmol/L (135-145)
--- NOTE | 2024-06-14 07:10 | PC.NURSE ---
received report from dyan terry pt is currently asleep, in no apparent distress at this time, respirations even and unlabored
[2024-06-14 07:19] LABS: Basophils Percent Auto 0.2 % (0-2); Eosinophils Percent Auto 0.5 % (0-4); Hematocrit 24.7 % (37.0-47.0); Hemoglobin 7.9 g/dl (12.0-16.0); Imm Gran Abs Auto 0.05 X10*3/uL (0.00-0.03); Imm Gran Pct Auto 0.9 % (0.0-0.4); Lymphocytes Percent Auto 17.4 % (20-40); MANUAL DIFF FLAG SCAN; Mean Corpuscular Hemoglobin 25.6 pg (27.0-33.0); Mean Corpuscular Volume 80.2 fL (80.0-98.0); Monocytes Absolute Auto 0.7 X10*3/uL (0.1-1.2); Monocytes Percent Auto 11.3 % (2-11); Neutrophils Percent Auto 69.7 % (45-73); PLT CLUMP 1; Red Blood Count 3.08 X10*6/uL (4.20-5.50); Red Cell Distribution Width 15.5 % (11.0-16.0); SCAN SMEAR FLAG 1
[2024-06-14 07:20] LABS: White Blood Count 5.8 X10*3/uL (4.8-10.8)
[2024-06-14 07:31] LABS: Glucose, Whole Blood 104 mg/dL (60-115)
[2024-06-14 07:42] LABS: Platelet Count 148 X10*3/uL (160-400); SLIDE REVIEW VERIFIED
[2024-06-14 08:42] LABS: Immature Retic Fraction 17.5 % (3.0-15.9)
[2024-06-14 08:43] LABS: Retic HGB Equivalent 24.7 pg (30.0-35.0); Reticulocyte Percent 1.3 % (0.5-1.8)
[2024-06-14 08:54] LABS: Iron 36 mcg/dL (30-160); Lactate Dehydrogenase 169 U/L (122-220); Percent Iron Saturation 14 % (15-50); Total Iron Binding Capacity 256 mcg/dL (228-428); Unsaturated Iron Binding 220 ug/dL
[2024-06-14 09:08] LABS: Ferritin 142 ng/mL (10-250)
[2024-06-14] MEDS: Furosemide 40 MG/4 ML VIAL IVPUSH ×2 (09:29→17:19)
[2024-06-14] MEDS: Cyanocobalamin (Vitamin B-12) 500 MCG TABLET PO (09:30)
[2024-06-14] MEDS: oxyBUTYnin chloride ER 5 MG TAB.ER.24 PO (09:30)
[2024-06-14] MEDS: Folic Acid 1 MG TABLET 0.5 MG PO (09:30)
[2024-06-14] MEDS: methIMAzole 5 MG TABLET 2.5 MG PO (09:31)
[2024-06-14] MEDS: levETIRAcetam 250 MG TABLET PO ×2 (09:31→20:46)
[2024-06-14] MEDS: Pregabalin 75 MG CAPSULE PO ×3 (09:31→20:46)
[2024-06-14] MEDS: Cholecalciferol (Vitamin D3) 25 MCG TABLET PO (09:31)
[2024-06-14] MEDS: Metoprolol Succinate ER 25 MG TAB.ER.24H PO (09:31)
[2024-06-14] MEDS: FLUoxetine HCl 20 MG CAPSULE PO (09:32)
--- NOTE | 2024-06-14 09:42 | MHC.CM.PN ---
Addendum entered by Oralia Bills 06/14/24 12:59: CM SPOKE WITH HCP LUCIANO WOLF REQUESTS SHE IS NOTIFIED BEFORE DC SHE NEEDS TO ARRANGE RESUMPTION OF 24 HR CARE. Original Note: IMM DELIVERED VIA TELEPHONE TO HCP/POA LUCIANO FIGUEROA AT [phone], WHITE COPY TO BE LEFT AT BEDSIDE, YELLOW COPY TO CHART. PER CHART REVIEW, PT LIVES IN [place] AT [facility] WITH [facility]7 [facility] PT IS DEPENDENT WITH CARE AND TRANSFERS VIA [facility]. PT HAS HOSPITAL BED AND HOME 02 VIA [facility]. ACTIVE WITH [facility] . +HCP/POA ON FILE. PCP ANALI FIGUEROA DP: HOME WITH RESUMPTION OF SERVICES IS THE GOAL. PT WILL NEED BLS TRANSPORT. CM WILL CONTINUE TO FOLLOW FOR ANY CHANGE TO DC PLAN/NEEDS. AWAITING RETURN CALL FROM HCP.
--- NOTE | 2024-06-14 10:14 | HO.SKINPHOTO ---
Addendum entered by Yanira Browning RN 06/14/24 10:15: Bilateral buttocks multiple open areas with irregular edges Original Note:
[2024-06-14 11:41] LABS: Glucose, Whole Blood 105 mg/dL (60-115)
--- NOTE | 2024-06-14 13:36 | MHC.SLORD ---
Speech Language Pathology Order Status: Unable to evaluate swallow, as patient was unresponsive and not waking to sternal rub. Patient had tray at bedside, which appeared untouched. Notified MD, RN, and RD- Patient was seen by UNDER BASTER during recent prior admit 06/04-06/06 and recommended [facility] altered diet and thin liquids at discharge. Please contact UNDER BASTER if patient's mentation improves and patient is able to participate, otherwise defer eval until appropriate. UNDER BASTER is available for call-in over the weekend if needed.
--- NOTE | 2024-06-14 13:39 | HO.PM.IMPN ---
Subjective Subjective Date of Service: 06/14/24 Interval History: unable to give history, confused, minimally verbal which is reportedly baseline Review of Systems Review of Systems: Yes Unobtainable due to mental status Physical Exam Vital Signs: Vital Signs: Last Vital Signs Temp 97.6 F 06/14/24 11:43 Pulse 58 06/14/24 11:43 Resp 18 06/14/24 11:43 BP 144/65 H 06/14/24 11:43 Pulse Ox 97 06/14/24 11:43 O2 Del Method Nasal Cannula 06/14/24 11:43 O2 Flow Rate 1 06/14/24 11:43 FiO2 30 06/13/24 16:03 BMI result Body Mass Index 32.0 Gen: in no acute distress HEENT: sclera anicteric, moist mucus membranes Neck: supple Lungs: clear to auscultation bilaterally Heart: regular rate and rhythm, no murmurs Abd: soft, non-tender, non-distended Ext: no edema Skin: warm/well-perfused Neuro: alert, chronic facial droop and L-sided weakness Psych: impaired insight Objective Data Active Medications Acetaminophen (Acetaminophen 325 Mg Tablet) 650 mg PO Q6H PRN PRN Reason: Pain, Mild (Pain Scale 1-3), fever or headache Albuterol Sulfate (Albuterol Sulfate 90 Mcg 8 Gm Inhaler) 2 puff INHALE Q6H PRN PRN Reason: wheezing Albuterol/Ipratropium (Albuterol/Iprat 2.5/0.5mg 3 Ml Ampul.Neb) 3 ml INHALE RQ4H WHILE AWAKE [facility] Last Admin: 06/14/24 11:44 Dose: Not Given Documented By: JC Non-Admin Reason: Patient Asleep Albuterol/Ipratropium (Albuterol/Iprat 2.5/0.5mg 3 Ml Ampul.Neb) 3 ml INHALE Q4H PRN PRN Reason: Wheezing Atorvastatin Calcium (Atorvastatin Calcium 80 Mg Tablet) 80 mg PO BEDTIME [facility] Calcium Carbonate (Calcium Carbonate 750 Mg Tab.Chew) 750 mg PO Q4H PRN PRN Reason: Heartburn Cyanocobalamin (Cyanocobalamin (Vitamin B-12) 500 Mcg Tablet) 500 mcg PO DAILY [facility] Last Admin: 06/14/24 09:30 Dose: 500 mcg Documented By: KT Enoxaparin Sodium (Enoxaparin Sodium 30 Mg/0.3 Ml Syringe) 30 mg SUBCUT Q24H [facility] Last Admin: 06/13/24 20:53 Dose: 30 mg Documented By: JUSTIN Fluoxetine HCl (Fluoxetine Hcl 20 Mg Capsule) 20 mg PO DAILY [facility] Last Admin: 06/14/24 09:32 Dose: 20 mg Documented By: KT Fluticasone Propionate (Fluticasone Propionate 250 Mcg Blst.W.Dev) 1 puff INHALE RBID [facility] Last Admin: 06/14/24 11:44 Dose: Not Given Documented By: JC Non-Admin Reason: Med Not Available Folic Acid (Folic Acid 1 Mg Tablet) 0.5 mg PO DAILY [facility] Last Admin: 06/14/24 09:30 Dose: 0.5 mg Documented By: KT Furosemide (Furosemide 40 Mg/4 Ml Vial) 40 mg IVPUSH BID@0900,1800 [facility]; Protocol Last Admin: 06/14/24 09:29 Dose: 40 mg Documented By: KT Glucose (Glucose Gel 15 Gm Gel..Gram.) 15 gm PO Q15M PRN; Protocol PRN Reason: per Hypoglycemia Standing Ord. Dextrose (D10) 250 mls @ 750 mls/hr IV Q15M PRN; Protocol PRN Reason: per Hypoglycemia Standing Ord. Insulin Human Lispro (Insulin Lispro 100 Unit/Ml 3 Ml Vial) 0 unit SUBCUT QIDACHS [facility]; Protocol Last Admin: 06/14/24 12:32 Dose: Not Given Documented By: KT Non-Admin Reason: No Insulin Coverage Levetiracetam (Levetiracetam 250 Mg Tablet) 250 mg PO BID [facility] Last Admin: 06/14/24 09:31 Dose: 250 mg Documented By: KT Loperamide HCl (Loperamide Hcl 2 Mg Capsule) 2 mg PO Q4H PRN PRN Reason: Diarrhea Magnesium Hydroxide (Milk Of Magnesia 30 Ml Oral.Susp) 30 ml PO DAILY PRN PRN Reason: Constipation Melatonin (Melatonin 3 Mg Tablet) 6 mg PO BEDTIME PRN PRN Reason: Insomnia Methimazole (Methimazole 5 Mg Tablet) 2.5 mg PO DAILY [facility] Last Admin: 06/14/24 09:31 Dose: 2.5 mg Documented By: KT Metoprolol Succinate (Metoprolol Succinate Er 25 Mg Tab.Er.24h) 25 mg PO DAILY [facility]; Protocol Last Admin: 06/14/24 09:31 Dose: 25 mg Documented By: KT Ondansetron HCl (Ondansetron Hcl 4 Mg/2 Ml Vial) 4 mg IVPUSH Q8H PRN PRN Reason: Nausea and Vomiting Oxybutynin Chloride (Oxybutynin Chloride Er 5 Mg Tab.Er.24) 5 mg PO DAILY [facility] Last Admin: 06/14/24 09:30 Dose: 5 mg Documented By: KT Pregabalin (Pregabalin 75 Mg Capsule) 75 mg PO TID [facility] Last Admin: 06/14/24 09:31 Dose: 75 mg Documented By: KT Sodium Chloride (0.9 % Sodium Chloride Flush 3 Ml Syringe) 3 ml IVFLUSH QSHIFT [facility] Last Admin: 06/14/24 07:54 Dose: 3 ml Documented By: VIOLET Trazodone HCl (Trazodone Hcl 100 Mg Tablet) 100 mg PO BEDTIME [facility] Last Admin: 06/14/24 00:15 Dose: 100 mg Documented By: SHELTON Vitamin D (Cholecalciferol (Vitamin D3) 25 Mcg Tablet) 25 mcg PO DAILY [facility] Last Admin: 06/14/24 09:31 Dose: 25 mcg Documented By: KT Labs 06/14/24 06:34 06/14/24 06:34 Labs: Laboratory Results - last 24 hr 06/13/24 06/13/24 06/13/24 14:07 14:08 14:09 MCV 83.9 MCH 25.0 L MCHC 29.8 L RDW 15.5 Plt Count 169 MPV 10.6 Immature Gran % (Auto) 0.8 H Neut % (Auto) 72.4 Lymph % (Auto) 16.6 L [place] % (Auto) 9.7 Eos % (Auto) 0.2 Baso % (Auto) 0.3 Lymph # (Auto) 1.0 L [place] # (Auto) 0.6 Eos # (Auto) 0.0 Baso # (Auto) 0.0 Abs Immat Gran (auto) 0.05 H Absolute Neuts (auto) 4.3 Absolute Nucleated RBC 0.000 Nucleated RBC % (auto) 0.0 Smear Tech's Comments Absolute Retic Percent Retic Immature Retic Fraction Retic Hgb Equivalent VBG pH VBG pCO2 VBG pO2 VBG HCO3 VBG O2 Saturation VBG Base Excess Anion Gap 9 L Estim Creat Clear Calc 28.3 Estimated GFR 32 POC Glucose Random Glucose 113 Lactic Acid 0.5 Calcium 9.5 Magnesium 1.8 Iron TIBC % Saturation Unsat Iron Binding Ferritin Total Bilirubin 0.3 Direct Bilirubin 0.1 AST 14 ALT < 6 Alkaline Phosphatase 53 Ammonia 41 Lactate Dehydrogenase Total Creatine Kinase 17 L Troponin I High Sens 14.8 D C-Reactive Protein 1.24 H B-Natriuretic Peptide 919 H Total Protein 6.9 Albumin 3.5 Lipase 11 Procalcitonin 0.04 TSH 1.65 Urine Color Urine Appearance Urine pH Ur Specific [place] Urine Protein Urine Glucose (UA) Urine Ketones Urine Blood Urine Nitrite Ur Leukocyte Esterase Urine RBC Urine WBC Ur Squamous Epith Cells Urine Bacteria Hyaline Casts Urine Yeast Influenza Type A (PCR) Influenza Type B (PCR) RSV RNA Qual (PCR) SARS-CoV-2 RNA (RT-PCR) 06/13/24 06/13/24 06/13/24 14:13 14:18 16:23 MCV MCH MCHC RDW Plt Count MPV Immature Gran % (Auto) Neut % (Auto) Lymph % (Auto) [place] % (Auto) Eos % (Auto) Baso % (Auto) Lymph # (Auto) [place] # (Auto) Eos # (Auto) Baso # (Auto) Abs Immat Gran (auto) Absolute Neuts (auto) Absolute Nucleated RBC Nucleated RBC % (auto) Smear Tech's Comments Absolute Retic Percent Retic Immature Retic Fraction Retic Hgb Equivalent VBG pH 7.29 L 7.31 L VBG pCO2 90 84 VBG pO2 110 54 VBG HCO3 43 H 43 H VBG O2 Saturation 99.0 87.0 VBG Base Excess 14.2 14.3 Anion Gap Estim Creat Clear Calc Estimated GFR POC Glucose Random Glucose Lactic Acid Calcium Magnesium Iron TIBC % Saturation Unsat Iron Binding Ferritin Total Bilirubin Direct Bilirubin AST ALT Alkaline Phosphatase Ammonia Lactate Dehydrogenase Total Creatine Kinase Troponin I High Sens C-Reactive Protein B-Natriuretic Peptide Total Protein Albumin Lipase Procalcitonin TSH Urine Color Urine Appearance Urine pH Ur Specific [place] Urine Protein Urine Glucose (UA) Urine Ketones Urine Blood Urine Nitrite Ur Leukocyte Esterase Urine RBC Urine WBC Ur Squamous Epith Cells Urine Bacteria Hyaline Casts Urine Yeast Influenza Type A (PCR) NEGATIVE Influenza Type B (PCR) NEGATIVE RSV RNA Qual (PCR) NEGATIVE SARS-CoV-2 RNA (RT-PCR) NEGATIVE 06/13/24 06/13/24 06/14/24 16:41 19:42 06:34 MCV 80.2 MCH 25.6 L MCHC 32.0 RDW 15.5 Plt Count 148 L MPV TNP Immature Gran % (Auto) 0.9 H Neut % (Auto) 69.7 Lymph % (Auto) 17.4 L [place] % (Auto) 11.3 H Eos % (Auto) 0.5 Baso % (Auto) 0.2 Lymph # (Auto) 1.0 L [place] # (Auto) 0.7 Eos # (Auto) 0.0 Baso # (Auto) 0.0 Abs Immat Gran (auto) 0.05 H Absolute Neuts (auto) 4.0 Absolute Nucleated RBC 0.000 Nucleated RBC % (auto) 0.0 Smear Tech's Comments VERIFIED Absolute Retic 0.040 Percent Retic 1.3 Immature Retic Fraction 17.5 H Retic Hgb Equivalent 24.7 L VBG pH 7.56 H VBG pCO2 41 VBG pO2 102 VBG HCO3 36 H VBG O2 Saturation 99.0 VBG Base Excess 13.5 Anion Gap 14 Estim Creat Clear Calc 32.3 Estimated GFR 36 POC Glucose Random Glucose 103 Lactic Acid Calcium 9.4 Magnesium Iron 36 TIBC 256 % Saturation 14 L Unsat Iron Binding 220 Ferritin 142 Total Bilirubin Direct Bilirubin AST ALT Alkaline Phosphatase Ammonia Lactate Dehydrogenase 169 Total Creatine Kinase Troponin I High Sens C-Reactive Protein B-Natriuretic Peptide Total Protein Albumin Lipase Procalcitonin TSH Urine Color Yellow Urine Appearance Clear Urine pH 5.0 Ur Specific [place] 1.010 Urine Protein Negative Urine Glucose (UA) Negative Urine Ketones Negative Urine Blood Trace H Urine Nitrite Negative Ur Leukocyte Esterase Negative Urine RBC 3-5 H Urine WBC 0-5 Ur Squamous Epith Cells 11-20 Urine Bacteria None Seen Hyaline Casts 0-2 Urine Yeast Present Influenza Type A (PCR) Influenza Type B (PCR) RSV RNA Qual (PCR) SARS-CoV-2 RNA (RT-PCR) 06/14/24 06/14/24 07:28 11:37 MCV MCH MCHC RDW Plt Count MPV Immature Gran % (Auto) Neut % (Auto) Lymph % (Auto) [place] % (Auto) Eos % (Auto) Baso % (Auto) Lymph # (Auto) [place] # (Auto) Eos # (Auto) Baso # (Auto) Abs Immat Gran (auto) Absolute Neuts (auto) Absolute Nucleated RBC Nucleated RBC % (auto) Smear Tech's Comments Absolute Retic Percent Retic Immature Retic Fraction Retic Hgb Equivalent VBG pH VBG pCO2 VBG pO2 VBG HCO3 VBG O2 Saturation VBG Base Excess Anion Gap Estim Creat Clear Calc Estimated GFR POC Glucose 104 105 Random Glucose Lactic Acid Calcium Magnesium Iron TIBC % Saturation Unsat Iron Binding Ferritin Total Bilirubin Direct Bilirubin AST ALT Alkaline Phosphatase Ammonia Lactate Dehydrogenase Total Creatine Kinase Troponin I High Sens C-Reactive Protein B-Natriuretic Peptide Total Protein Albumin Lipase Procalcitonin TSH Urine Color Urine Appearance Urine pH Ur Specific [place] Urine Protein Urine Glucose (UA) Urine Ketones Urine Blood Urine Nitrite Ur Leukocyte Esterase Urine RBC Urine WBC Ur Squamous Epith Cells Urine Bacteria Hyaline Casts Urine Yeast Influenza Type A (PCR) Influenza Type B (PCR) RSV RNA Qual (PCR) SARS-CoV-2 RNA (RT-PCR) Assessment and Plan (1) Congestive heart failure: Status: Acute Plan 78yo F LTC resident of [facility] with COPD on home O2, prior CVA with L-sided weakness, HTN, DM2, CHF with unknown EF, dementia, COPD, and obesity presenting with lethargy, found to have hypercapnea and hypoxia due to CHF exacerbation CHF exacerbation, unknown EF - TTE, furosemide IV, trend BNP and monitor BMP/Mg/I+O, low-sodium diet - continue metoprolol succinate KIRAN - suspect cardiorenal, monitor SCr with dialysis acute/chronic hypercapneic/hypoxic resp failure - initially on BiPAP in ED - on home O2; appears to retain CO2 so goal SaO2 is no greater than 92%; prn albuterol nebs; ICS inhaler small-vessel occlusive disease with superimpoased acute stroke unable to be excluded on CT - MRI pending prior CVA with residual L facial droop and L weakness - ASA + clopidogrel + atorvastatin hyperthyroidism - methimazole seizure disorder - levetiracetam neuropathy - pregabalin- decrease dose due to renal failure + somnolene DM2 - shae-dose lispro mood disorder - trazodone + fluoxetine VTE prophylaxis - enoxaparin dispo - eventual return to [facility] In my clinical judgment, the patient requires continued inpatient hospitalization for the following reasons: IV diuresis Total time managing care of this patient today: 40 minutes. Quality Stroke Does the patient have a stroke diagnosis?: No VTE Prior VTE?: No VTE Risk Level:: Medical - moderate - high VTE Device Contraindication: Treatment Not Indicated VTE Drug Contraindication: N/A - Med Ordered
[2024-06-14] MEDS: Albuterol/Iprat 2.5/0.5MG 3 ML AMPUL.NEB INHALE (15:03)
[2024-06-14] MEDS: Fluticasone Propionate 250 MCG BLST.W.DEV 1 PUFF INHALE (15:08)
--- NOTE | 2024-06-14 16:00 | MHC.CLN ---
NUTRITION DIET=DM 2000 KCAL, 2 G SODIUM, GROUND CONSISTENCY. DID NOT EAT BREAKFAST OR LUNCH TODAY. RECENT ICU ADM WITH PATIENT INTUBATED. SKIN WITH STAGE II PRESSURE INJURIES TO BILATERAL BUTTOCKS. ADDING ENSURE BID (700 KCALS, 40 G PROTEIN) TO INCREASE NUTRITIONAL INTAKE AND PROMOTE WOUND HEALING. FOLLOW FOR PO INTAKE, DIET TOLERANCE, AND SKIN INTEGRITY. SEE CLINICAL NUTRITION ASSESSMENT 06/14/24.
[2024-06-14 16:23] LABS: Glucose, Whole Blood 111 mg/dL (60-115)
--- NOTE | 2024-06-14 17:12 | MHC.SL.SWA ---
Speech Pathologist Impression: Risk of Aspiration, Mild Oral Phase Dysphagia Risk of Aspiration Due to: Confusion Dysphasia Diet Status: No Changes to Diet Order Liquid Consistency and Strategies for Safe Swallow: Liquid Intake Recommendation: Thin Liquid Intake Strategies: Small Sips Solid Food Consistency: Dietary Recommendations: Grnd/Mech Altered (NDD2) Additional Modifications to Solid Foods: Recommend CONTINUE on GROUND/MECH ALTERED (NDD2) diet and THIN liquids, pills WHOLE in LIQUID or PUREE per patient's tolerance. Patient will need direct supervision d/t confusion, assist with feeding as needed. Aspiration precautions apply. BAR TACKER SEWING MACHINE to f/u 1-2x to monitor tolerance. Oral Medication Intake: Whole with Liquid Please contact the pharmacy regarding appropriate crushable or liquid drug formulations that are available whenever modified delivery is recommended. Compensatory Strategies and Precautions to be Taken for Safe Swallow: Sitting Upright (90 deg) Small Bites and Sips Alternate Liquids/Solids Rate of Ingestion Change Oral Check Avoid Specific Foods Supervision While Eating and Drinking for Safe Swallow: Total Supervision (1:1) Foods to Avoid: Hard, difficult to chew solids Swallowing Recommended Treatments: Compens. Strategy Educat. Recommendation for Speech: Inpatient Speech Therapy Comment: 1-2 f/u Frequency/Duration: Date Range for Service Req: Timeline to reassess: Doll Wig Maker Rooted Hair Clinican/Clinical Fellow: No Supervisory Statement: I have reviewed and agree with the student/clinical fellow's documentation: N/A Speech Language Pathologist: Marlin Vyas M.A., [facility]-BAR TACKER SEWING MACHINE
[2024-06-14 20:03] LABS: Glucose, Whole Blood 135 mg/dL (60-115)
[2024-06-14] MEDS: Enoxaparin Sodium 30 MG/0.3 ML SYRINGE SUBCUT (20:46)
[2024-06-14] MEDS: Atorvastatin Calcium 80 MG TABLET PO (20:46)
[2024-06-15] VITALS (12 sets, daily range): BP systolic 107–130; BP diastolic 53–89; PULSE 67–93; RESP 16–20; TEMP 36.2–37.1; O2SAT 86–95
[2024-06-15 07:12] LABS: Hematocrit 27.7 % (37.0-47.0); Mean Corpuscular HGB Conc 32.5 g/dl (31.0-35.0); Mean Corpuscular Hemoglobin 25.8 pg (27.0-33.0); Mean Corpuscular Volume 79.4 fL (80.0-98.0); Mean Platelet Volume 11.3 fL (9.4-12.3); Platelet Count 187 X10*3/uL (160-400); Red Blood Count 3.49 X10*6/uL (4.20-5.50); Red Cell Distribution Width 15.7 % (11.0-16.0); White Blood Count 7.1 X10*3/uL (4.8-10.8)
[2024-06-15 07:37] LABS: B Type Natriuretic Peptide 243 pg/mL (<100)
[2024-06-15 07:58] LABS: Glucose, Whole Blood 104 mg/dL (60-115)
[2024-06-15] MEDS: Albuterol/Iprat 2.5/0.5MG 3 ML AMPUL.NEB INHALE ×4 (08:24→19:45)
[2024-06-15] MEDS: Fluticasone Propionate 250 MCG BLST.W.DEV 1 PUFF INHALE ×2 (08:24→19:58)
[2024-06-15] MEDS: oxyBUTYnin chloride ER 5 MG TAB.ER.24 PO (08:42)
[2024-06-15] MEDS: Furosemide 40 MG/4 ML VIAL IVPUSH ×2 (08:42→17:20)
[2024-06-15] MEDS: Folic Acid 1 MG TABLET 0.5 MG PO (08:42)
[2024-06-15] MEDS: methIMAzole 5 MG TABLET 2.5 MG PO (08:42)
[2024-06-15] MEDS: FLUoxetine HCl 20 MG CAPSULE PO (08:42)
[2024-06-15] MEDS: Cyanocobalamin (Vitamin B-12) 500 MCG TABLET PO (08:43)
[2024-06-15] MEDS: levETIRAcetam 250 MG TABLET PO ×2 (08:43→20:32)
[2024-06-15] MEDS: Pregabalin 75 MG CAPSULE PO ×3 (08:43→20:32)
[2024-06-15] MEDS: Cholecalciferol (Vitamin D3) 25 MCG TABLET PO (08:43)
[2024-06-15] MEDS: 0.9 % Sodium Chloride Flush 3 ML SYRINGE IVFLUSH ×3 (08:43→20:32)
[2024-06-15] MEDS: Metoprolol Succinate ER 25 MG TAB.ER.24H PO (08:51)
--- NOTE | 2024-06-15 10:54 | HO.PM.IMPN ---
Subjective Subjective Date of Service: 06/15/24 Interval History: no apparent distress Review of Systems Review of Systems: Yes Unobtainable due to mental status Physical Exam Vital Signs: Vital Signs: Last Vital Signs Temp 97.2 F 06/15/24 07:55 Pulse 88 06/15/24 08:25 Resp 16 06/15/24 08:25 BP 125/56 L 06/15/24 07:55 Pulse Ox 92 06/15/24 07:55 O2 Del Method Nasal Cannula 06/15/24 07:55 O2 Flow Rate 1 06/15/24 07:55 FiO2 30 06/13/24 16:03 BMI result Body Mass Index 32.0 Gen: in no acute distress HEENT: sclera anicteric, moist mucus membranes Neck: supple Lungs: clear to auscultation bilaterally Heart: regular rate and rhythm, no murmurs Abd: soft, non-tender, non-distended Ext: no edema Skin: warm/well-perfused Neuro: alert, chronic facial droop and L-sided weakness Psych: impaired insight Objective Data Active Medications Acetaminophen (Acetaminophen 325 Mg Tablet) 650 mg PO Q6H PRN PRN Reason: Pain, Mild (Pain Scale 1-3), fever or headache Albuterol Sulfate (Albuterol Sulfate 90 Mcg 8 Gm Inhaler) 2 puff INHALE Q6H PRN PRN Reason: wheezing Albuterol/Ipratropium (Albuterol/Iprat 2.5/0.5mg 3 Ml Ampul.Neb) 3 ml INHALE RQ4H WHILE AWAKE [facility] Last Admin: 06/15/24 08:24 Dose: 3 ml Documented By: CINDY Albuterol/Ipratropium (Albuterol/Iprat 2.5/0.5mg 3 Ml Ampul.Neb) 3 ml INHALE Q4H PRN PRN Reason: Wheezing Atorvastatin Calcium (Atorvastatin Calcium 80 Mg Tablet) 80 mg PO BEDTIME [facility] Last Admin: 06/14/24 20:46 Dose: 80 mg Documented By: KWASI Calcium Carbonate (Calcium Carbonate 750 Mg Tab.Chew) 750 mg PO Q4H PRN PRN Reason: Heartburn Cyanocobalamin (Cyanocobalamin (Vitamin B-12) 500 Mcg Tablet) 500 mcg PO DAILY [facility] Last Admin: 06/15/24 08:43 Dose: 500 mcg Documented By: ATUL Enoxaparin Sodium (Enoxaparin Sodium 30 Mg/0.3 Ml Syringe) 30 mg SUBCUT Q24H [facility] Last Admin: 06/14/24 20:46 Dose: 30 mg Documented By: NASHRISJanae Fluoxetine HCl (Fluoxetine Hcl 20 Mg Capsule) 20 mg PO DAILY [facility] Last Admin: 06/15/24 08:42 Dose: 20 mg Documented By: ATUL Fluticasone Propionate (Fluticasone Propionate 250 Mcg Blst.W.Dev) 1 puff INHALE RBID [facility] Last Admin: 06/15/24 08:24 Dose: 1 puff Documented By: CINDY Folic Acid (Folic Acid 1 Mg Tablet) 0.5 mg PO DAILY [facility] Last Admin: 06/15/24 08:42 Dose: 0.5 mg Documented By: ATUL Furosemide (Furosemide 40 Mg/4 Ml Vial) 40 mg IVPUSH BID@0900,1800 [facility]; Protocol Last Admin: 06/15/24 08:42 Dose: 40 mg Documented By: ATUL Glucose (Glucose Gel 15 Gm Gel..Gram.) 15 gm PO Q15M PRN; Protocol PRN Reason: per Hypoglycemia Standing Ord. Dextrose (D10) 250 mls @ 750 mls/hr IV Q15M PRN; Protocol PRN Reason: per Hypoglycemia Standing Ord. Insulin Human Lispro (Insulin Lispro 100 Unit/Ml 3 Ml Vial) 0 unit SUBCUT QIDACHS [facility]; Protocol Last Admin: 06/15/24 08:00 Dose: Not Given Documented By: ATUL Non-Admin Reason: No Insulin Coverage Levalbuterol HCl (Levalbuterol Hcl 1.25 Mg/3 Ml Vial.Neb) 1.25 mg INHALE Q4H PRN PRN Reason: wheezing Levetiracetam (Levetiracetam 250 Mg Tablet) 250 mg PO BID [facility] Last Admin: 06/15/24 08:43 Dose: 250 mg Documented By: ATUL Loperamide HCl (Loperamide Hcl 2 Mg Capsule) 2 mg PO Q4H PRN PRN Reason: Diarrhea Magnesium Hydroxide (Milk Of Magnesia 30 Ml Oral.Susp) 30 ml PO DAILY PRN PRN Reason: Constipation Melatonin (Melatonin 3 Mg Tablet) 6 mg PO BEDTIME PRN PRN Reason: Insomnia Methimazole (Methimazole 5 Mg Tablet) 2.5 mg PO DAILY [facility] Last Admin: 06/15/24 08:42 Dose: 2.5 mg Documented By: ATUL Metoprolol Succinate (Metoprolol Succinate Er 25 Mg Tab.Er.24h) 25 mg PO DAILY [facility]; Protocol Last Admin: 06/15/24 08:51 Dose: 25 mg Documented By: ATUL Ondansetron HCl (Ondansetron Hcl 4 Mg/2 Ml Vial) 4 mg IVPUSH Q8H PRN PRN Reason: Nausea and Vomiting Oxybutynin Chloride (Oxybutynin Chloride Er 5 Mg Tab.Er.24) 5 mg PO DAILY [facility] Last Admin: 06/15/24 08:42 Dose: 5 mg Documented By: ATUL Pregabalin (Pregabalin 75 Mg Capsule) 75 mg PO TID [facility] Last Admin: 06/15/24 08:43 Dose: 75 mg Documented By: ATUL Sodium Chloride (0.9 % Sodium Chloride Flush 3 Ml Syringe) 3 ml IVFLUSH QSHIFT [facility] Last Admin: 06/15/24 08:43 Dose: 3 ml Documented By: ATUL Trazodone HCl (Trazodone Hcl 100 Mg Tablet) 100 mg PO BEDTIME [facility] Last Admin: 06/14/24 20:55 Dose: Not Given Documented By: KWASI Non-Admin Reason: pt sleepy Vitamin D (Cholecalciferol (Vitamin D3) 25 Mcg Tablet) 25 mcg PO DAILY [facility] Last Admin: 06/15/24 08:43 Dose: 25 mcg Documented By: ATUL Labs 06/15/24 06:39 06/14/24 06:34 Labs: Laboratory Results - last 24 hr 06/14/24 06/14/24 06/14/24 11:37 15:56 19:44 MCV MCH MCHC RDW Plt Count MPV Absolute Nucleated RBC Nucleated RBC % (auto) POC Glucose 105 111 135 H B-Natriuretic Peptide Blood Type Antibody Screen 06/15/24 06/15/24 06/15/24 06:39 07:09 07:25 MCV 79.4 L MCH 25.8 L MCHC 32.5 RDW 15.7 Plt Count 187 D MPV 11.3 Absolute Nucleated RBC 0.000 Nucleated RBC % (auto) 0.0 POC Glucose 104 B-Natriuretic Peptide 243 H Blood Type O Positive Antibody Screen NEGATIVE Impressions Brain MRI 06/14/24 10:35 IMPRESSION: 1. 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 2. Unchanged chronic lacunar infarcts in right frausto radiata and right internal capsule. 3. No acute cerebral infarction is seen. 4. No evidence of space occupying mass lesion could be found. 5. No evidence of intracranial hemorrhage. 6. Empty sella syndrome. 7. Persistent extensive bilateral mastoid effusions. Electronically signed by: Jocelyn Sandhu MD 06/14/2024 02:34 PM EST Microbiology Microbiology Results: Microbiology 06/13/24 14:18 Blood Culture - Preliminary Blood - Venous No growth after 24 hours. 06/13/24 14:06 Blood Culture - Preliminary Blood - Venous No growth after 24 hours. Assessment and Plan (1) Congestive heart failure: Status: Acute Plan d3 78yo F LTC resident of [facility] with COPD on home O2, prior CVA with L-sided weakness, HTN, DM2, CHF with unknown EF, dementia, COPD, and obesity presenting with lethargy, found to have hypercapnea and hypoxia due to CHF exacerbation CHF exacerbation, unknown EF - TTE, continue diuresis with IV furosemide, trend BNP and monitor BMP/Mg/I+O, low-sodium diet - continue metoprolol succinate KIRAN - suspect cardiorenal, monitor SCr with dialysis acute/chronic hypercapneic/hypoxic resp failure - initially on BiPAP in ED - on home O2; appears to retain CO2 so goal SaO2 is no greater than 92%; prn albuterol nebs; ICS inhaler small-vessel occlusive disease with superimpoased acute stroke unable to be excluded on CT - MRI without any new lesion prior CVA with residual L facial droop and L weakness - ASA + clopidogrel + atorvastatin hyperthyroidism - methimazole seizure disorder - levetiracetam neuropathy - pregabalin- decreased dose due to renal failure + somnolene DM2 - shae-dose lispro mood disorder - trazodone + fluoxetine VTE prophylaxis - enoxaparin dispo - eventual return to [facility] In my clinical judgment, the patient requires continued inpatient hospitalization for the following reasons: IV diuresis Total time managing care of this patient today: 40 minutes. Quality Stroke Does the patient have a stroke diagnosis?: No VTE Prior VTE?: No VTE Risk Level:: Medical - moderate - high VTE Device Contraindication: Treatment Not Indicated VTE Drug Contraindication: N/A - Med Ordered
[2024-06-15 11:06] LABS: Anion Gap 10 (12-20); Blood Urea Nitrogen 33 mg/dL (9-16); Calcium 9.5 mg/dL (8.4-10.2); Carbon Dioxide 44 mmol/L (22-29); Chloride 95 mmol/L (96-108); Creatinine Clr Calc Pharmacy 30.3; Estimated Glomerular Filt Rate 34; Glucose Random 108 mg/dL (60-115); Magnesium 1.5 mg/dL (1.6-2.6); Potassium 3.6 mmol/L (3.3-5.1); Sodium 145 mmol/L (135-145)
[2024-06-15 11:14] LABS: Folate 18.1 ng/mL (> or = 4.0)
[2024-06-15 11:19] LABS: Vitamin B12 1868 pg/mL (200-900)
[2024-06-15] MEDS: Magnesium Sulfate/H2O 2 GM/50 ML PIGGYBACK IV (11:32)
[2024-06-15 11:39] LABS: Glucose, Whole Blood 173 mg/dL (60-115)
[2024-06-15 16:31] LABS: Glucose, Whole Blood 173 mg/dL (60-115)
[2024-06-15] MEDS: Insulin Lispro 100 UNIT/ML 3 ML VIAL SUBCUT ×2 (16:56→20:32)
[2024-06-15 20:03] LABS: Glucose, Whole Blood 200 mg/dL (60-115)
[2024-06-15] MEDS: traZODone HCL 100 MG TABLET PO (20:32)
[2024-06-15] MEDS: Atorvastatin Calcium 80 MG TABLET PO (20:32)
[2024-06-15] MEDS: Enoxaparin Sodium 30 MG/0.3 ML SYRINGE SUBCUT (20:32)
[2024-06-16] VITALS (11 sets, daily range): BP systolic 107–133; BP diastolic 55–63; PULSE 68–85; RESP 16–20; TEMP 36.1–36.7; O2SAT 90–95
[2024-06-16 06:03] LABS: Venous Blood Gas Refer to POC result
[2024-06-16 06:07] LABS: VBG Base Excess 29.3 mmol/L; VBG HCO3 56 mmol/L (22-26); VBG pCO2 68 mmHg; VBG pH 7.52 (7.32-7.43); VBG pO2 75 mmHg
[2024-06-16 06:37] LABS: Hematocrit 27.7 % (37.0-47.0); Hemoglobin 8.8 g/dl (12.0-16.0); Mean Corpuscular HGB Conc 31.8 g/dl (31.0-35.0); Mean Corpuscular Hemoglobin 25.5 pg (27.0-33.0); Mean Corpuscular Volume 80.3 fL (80.0-98.0); Mean Platelet Volume 11.1 fL (9.4-12.3); Platelet Count 167 X10*3/uL (160-400); Red Blood Count 3.45 X10*6/uL (4.20-5.50); Red Cell Distribution Width 15.9 % (11.0-16.0); White Blood Count 7.3 X10*3/uL (4.8-10.8)
[2024-06-16 06:57] LABS: B Type Natriuretic Peptide 117 pg/mL (<100); Blood Urea Nitrogen 39 mg/dL (9-16); Calcium 9.4 mg/dL (8.4-10.2); Creatinine Clr Calc Pharmacy 32.3; Estimated Glomerular Filt Rate 36; Glucose Random 111 mg/dL (60-115); Magnesium 1.8 mg/dL (1.6-2.6)
[2024-06-16 07:04] LABS: Anion Gap 15 (12-20)
[2024-06-16] MEDS: Albuterol/Iprat 2.5/0.5MG 3 ML AMPUL.NEB INHALE ×4 (07:23→20:34)
[2024-06-16 07:35] LABS: Carbon Dioxide 40 mmol/L (22-29); Chloride 94 mmol/L (96-108); Potassium 3.5 mmol/L (3.3-5.1); Sodium 145 mmol/L (135-145)
[2024-06-16 07:49] LABS: Glucose, Whole Blood 120 mg/dL (60-115)
[2024-06-16] MEDS: Cyanocobalamin (Vitamin B-12) 500 MCG TABLET PO (07:57)
[2024-06-16] MEDS: Folic Acid 1 MG TABLET 0.5 MG PO (07:57)
[2024-06-16] MEDS: Furosemide 40 MG TABLET PO ×2 (07:57→17:13)
[2024-06-16] MEDS: methIMAzole 5 MG TABLET 2.5 MG PO (07:58)
[2024-06-16] MEDS: Cholecalciferol (Vitamin D3) 25 MCG TABLET PO (07:58)
[2024-06-16] MEDS: Pregabalin 75 MG CAPSULE PO ×3 (07:58→21:30)
[2024-06-16] MEDS: oxyBUTYnin chloride ER 5 MG TAB.ER.24 PO (07:58)
[2024-06-16] MEDS: acetaZOLAMIDE 250 MG TABLET PO ×2 (07:58→21:29)
[2024-06-16] MEDS: Ferrous Sulfate 324 MG TABLET.DR PO (07:58)
[2024-06-16] MEDS: Metoprolol Succinate ER 25 MG TAB.ER.24H PO (07:58)
[2024-06-16] MEDS: FLUoxetine HCl 20 MG CAPSULE PO (07:58)
[2024-06-16] MEDS: levETIRAcetam 250 MG TABLET PO ×2 (07:59→21:29)
[2024-06-16] MEDS: 0.9 % Sodium Chloride Flush 3 ML SYRINGE IVFLUSH ×3 (07:59→21:37)
--- NOTE | 2024-06-16 09:02 | HO.PM.IMPN ---
Subjective Subjective Date of Service: 06/16/24 Interval History: no distress breathing well Review of Systems Review of Systems: Yes Unobtainable due to mental status Physical Exam Vital Signs: Vital Signs: Last Vital Signs Temp 97.2 F 06/16/24 07:38 Pulse 71 06/16/24 07:38 Resp 18 06/16/24 07:38 BP 110/55 L 06/16/24 07:38 Pulse Ox 92 06/16/24 07:38 O2 Del Method Nasal Cannula 06/16/24 07:38 O2 Flow Rate 1 06/16/24 07:38 FiO2 30 06/13/24 16:03 BMI result Body Mass Index 32.0 Gen: in no acute distress HEENT: sclera anicteric, moist mucus membranes Neck: supple Lungs: clear to auscultation bilaterally Heart: regular rate and rhythm, no murmurs Abd: soft, non-tender, non-distended Ext: no edema Skin: warm/well-perfused Neuro: alert, chronic facial droop and L-sided weakness Psych: impaired insight Objective Data Active Medications Acetaminophen (Acetaminophen 325 Mg Tablet) 650 mg PO Q6H PRN PRN Reason: Pain, Mild (Pain Scale 1-3), fever or headache Acetazolamide (Acetazolamide 250 Mg Tablet) 250 mg PO BID [facility] Stop: 06/16/24 21:01 Last Admin: 06/16/24 07:58 Dose: 250 mg Documented By: ATUL Albuterol Sulfate (Albuterol Sulfate 90 Mcg 8 Gm Inhaler) 2 puff INHALE Q6H PRN PRN Reason: wheezing Albuterol/Ipratropium (Albuterol/Iprat 2.5/0.5mg 3 Ml Ampul.Neb) 3 ml INHALE RQ4H WHILE AWAKE [facility] Last Admin: 06/16/24 07:23 Dose: 3 ml Documented By: CINDY Albuterol/Ipratropium (Albuterol/Iprat 2.5/0.5mg 3 Ml Ampul.Neb) 3 ml INHALE Q4H PRN PRN Reason: Wheezing Atorvastatin Calcium (Atorvastatin Calcium 80 Mg Tablet) 80 mg PO BEDTIME [facility] Last Admin: 06/15/24 20:32 Dose: 80 mg Documented By: NASHRISJanae Calcium Carbonate (Calcium Carbonate 750 Mg Tab.Chew) 750 mg PO Q4H PRN PRN Reason: Heartburn Cyanocobalamin (Cyanocobalamin (Vitamin B-12) 500 Mcg Tablet) 500 mcg PO DAILY [facility] Last Admin: 06/16/24 07:57 Dose: 500 mcg Documented By: ATUL Enoxaparin Sodium (Enoxaparin Sodium 30 Mg/0.3 Ml Syringe) 30 mg SUBCUT Q24H [facility] Last Admin: 06/15/24 20:32 Dose: 30 mg Documented By: KWASI Ferrous Sulfate (Ferrous Sulfate 324 Mg Tablet.) 324 mg PO DAILY [facility] Last Admin: 06/16/24 08:10 Dose: Not Given Documented By: ATUL Non-Admin Reason: Previously Administered Fluoxetine HCl (Fluoxetine Hcl 20 Mg Capsule) 20 mg PO DAILY [facility] Last Admin: 06/16/24 07:58 Dose: 20 mg Documented By: ATUL Fluticasone Propionate (Fluticasone Propionate 250 Mcg Blst.W.Dev) 1 puff INHALE RBID [facility] Last Admin: 06/16/24 07:26 Dose: Not Given Documented By: CINDY Non-Admin Reason: pt unable to Folic Acid (Folic Acid 1 Mg Tablet) 0.5 mg PO DAILY [facility] Last Admin: 06/16/24 07:57 Dose: 0.5 mg Documented By: ATUL Furosemide (Furosemide 40 Mg Tablet) 40 mg PO BID@0900,1800 [facility]; Protocol Last Admin: 06/16/24 07:57 Dose: 40 mg Documented By: ATUL Glucose (Glucose Gel 15 Gm Gel..Gram.) 15 gm PO Q15M PRN; Protocol PRN Reason: per Hypoglycemia Standing Ord. Dextrose (D10) 250 mls @ 750 mls/hr IV Q15M PRN; Protocol PRN Reason: per Hypoglycemia Standing Ord. Insulin Human Lispro (Insulin Lispro 100 Unit/Ml 3 Ml Vial) 0 unit SUBCUT QIDACHS [facility]; Protocol Last Admin: 06/16/24 07:50 Dose: Not Given Documented By: ATUL Non-Admin Reason: No Insulin Coverage Levalbuterol HCl (Levalbuterol Hcl 1.25 Mg/3 Ml Vial.Neb) 1.25 mg INHALE Q4H PRN PRN Reason: wheezing Levetiracetam (Levetiracetam 250 Mg Tablet) 250 mg PO BID [facility] Last Admin: 06/16/24 07:59 Dose: 250 mg Documented By: ATUL Loperamide HCl (Loperamide Hcl 2 Mg Capsule) 2 mg PO Q4H PRN PRN Reason: Diarrhea Magnesium Hydroxide (Milk Of Magnesia 30 Ml Oral.Susp) 30 ml PO DAILY PRN PRN Reason: Constipation Melatonin (Melatonin 3 Mg Tablet) 6 mg PO BEDTIME PRN PRN Reason: Insomnia Methimazole (Methimazole 5 Mg Tablet) 2.5 mg PO DAILY [facility] Last Admin: 06/16/24 07:58 Dose: 2.5 mg Documented By: ATUL Metoprolol Succinate (Metoprolol Succinate Er 25 Mg Tab.Er.24h) 25 mg PO DAILY [facility]; Protocol Last Admin: 06/16/24 07:58 Dose: 25 mg Documented By: ATUL Ondansetron HCl (Ondansetron Hcl 4 Mg/2 Ml Vial) 4 mg IVPUSH Q8H PRN PRN Reason: Nausea and Vomiting Oxybutynin Chloride (Oxybutynin Chloride Er 5 Mg Tab.Er.24) 5 mg PO DAILY [facility] Last Admin: 06/16/24 07:58 Dose: 5 mg Documented By: ATUL Pregabalin (Pregabalin 75 Mg Capsule) 75 mg PO TID [facility] Last Admin: 06/16/24 07:58 Dose: 75 mg Documented By: ATUL Sodium Chloride (0.9 % Sodium Chloride Flush 3 Ml Syringe) 3 ml IVFLUSH QSHIFT [facility] Last Admin: 06/16/24 07:59 Dose: 3 ml Documented By: ATUL Trazodone HCl (Trazodone Hcl 100 Mg Tablet) 100 mg PO BEDTIME [facility] Last Admin: 06/15/24 20:32 Dose: 100 mg Documented By: KWASI Vitamin D (Cholecalciferol (Vitamin D3) 25 Mcg Tablet) 25 mcg PO DAILY [facility] Last Admin: 06/16/24 07:58 Dose: 25 mcg Documented By: ATUL Labs 06/16/24 05:58 06/16/24 05:58 Labs: Laboratory Results - last 24 hr 06/15/24 06/15/24 06/15/24 10:09 11:35 16:27 MCV MCH MCHC RDW Plt Count MPV Absolute Nucleated RBC Nucleated RBC % (auto) VBG pH VBG pCO2 VBG pO2 VBG HCO3 VBG O2 Saturation VBG Base Excess Anion Gap 10 L Estim Creat Clear Calc 30.3 Estimated GFR 34 POC Glucose 173 H 173 H Random Glucose 108 Calcium 9.5 Magnesium 1.5 L B-Natriuretic Peptide Vitamin B12 1868 H Folate 18.1 06/15/24 06/16/24 06/16/24 19:59 05:58 06:02 MCV 80.3 MCH 25.5 L MCHC 31.8 RDW 15.9 Plt Count 167 MPV 11.1 Absolute Nucleated RBC 0.000 Nucleated RBC % (auto) 0.0 VBG pH 7.52 H VBG pCO2 68 VBG pO2 75 VBG HCO3 56 H VBG O2 Saturation 95.0 VBG Base Excess 29.3 Anion Gap 15 Estim Creat Clear Calc 32.3 Estimated GFR 36 POC Glucose 200 H Random Glucose 111 Calcium 9.4 Magnesium 1.8 B-Natriuretic Peptide 117 H Vitamin B12 Folate 06/16/24 07:45 MCV MCH MCHC RDW Plt Count MPV Absolute Nucleated RBC Nucleated RBC % (auto) VBG pH VBG pCO2 VBG pO2 VBG HCO3 VBG O2 Saturation VBG Base Excess Anion Gap Estim Creat Clear Calc Estimated GFR POC Glucose 120 H Random Glucose Calcium Magnesium B-Natriuretic Peptide Vitamin B12 Folate Microbiology Microbiology Results: Microbiology 06/13/24 14:18 Blood Culture - Preliminary Blood - Venous No growth after 48 hours. 06/13/24 14:06 Blood Culture - Preliminary Blood - Venous No growth after 48 hours. Assessment and Plan (1) Congestive heart failure: Status: Acute Plan d4 78yo F LTC resident of [facility] with COPD on home O2, prior CVA with L-sided weakness, HTN, DM2, CHF with unknown EF, dementia, COPD, and obesity presenting with lethargy, found to have hypercapnea and hypoxia due to CHF exacerbation CHF exacerbation, unknown EF - appears euvolemic after diuresing net negative 4.3L, change from IV to PO furosemide, give 2 doses of acetazolamide for CO2 retention and recheck BMP in AM, low-Na diet - TTE pending - continue metoprolol succinate KIRAN - suspect cardiorenal, monitor SCr with diuresis acute/chronic hypercapneic/hypoxic resp failure - initially on BiPAP in ED - on home O2; appears to retain CO2 so goal SaO2 is no greater than 92%; prn albuterol nebs; ICS inhaler small-vessel occlusive disease with superimpoased acute stroke unable to be excluded on CT - MRI without any new lesion prior CVA with residual L facial droop and L weakness - ASA + clopidogrel + atorvastatin hyperthyroidism - methimazole seizure disorder - levetiracetam neuropathy - pregabalin- decreased dose due to renal failure + somnolene DM2 - shae-dose lispro mood disorder - trazodone + fluoxetine VTE prophylaxis - enoxaparin dispo - eventual return to [facility] In my clinical judgment, the patient requires continued inpatient hospitalization for the following reasons: CHF Total time managing care of this patient today: 40 minutes. Quality Stroke Does the patient have a stroke diagnosis?: No VTE Prior VTE?: No VTE Risk Level:: Medical - moderate - high VTE Device Contraindication: Treatment Not Indicated VTE Drug Contraindication: N/A - Med Ordered
[2024-06-16 11:39] LABS: Glucose, Whole Blood 194 mg/dL (60-115)
[2024-06-16] MEDS: Insulin Lispro 100 UNIT/ML 3 ML VIAL SUBCUT ×3 (12:15→21:30)
[2024-06-16 16:08] LABS: OBS Int Ctl Valid YES; OBS1 NEGATIVE (NEGATIVE)
[2024-06-16 16:09] LABS: Glucose, Whole Blood 171 mg/dL (60-115)
[2024-06-16] MEDS: Fluticasone Propionate 250 MCG BLST.W.DEV 1 PUFF INHALE (20:33)
[2024-06-16 20:44] LABS: Glucose, Whole Blood 169 mg/dL (60-115)
[2024-06-16] MEDS: traZODone HCL 100 MG TABLET PO (21:29)
[2024-06-16] MEDS: Atorvastatin Calcium 80 MG TABLET PO (21:29)
[2024-06-16] MEDS: Enoxaparin Sodium 30 MG/0.3 ML SYRINGE SUBCUT (21:30)
[2024-06-17] VITALS (11 sets, daily range): BP systolic 105–119; BP diastolic 55–59; PULSE 64–85; RESP 12–18; TEMP 35.8–37.6; O2SAT 86–96; BMI 31.5
[2024-06-17 05:37] LABS: Venous Blood Gas Refer to POC result
[2024-06-17 05:38] LABS: VBG Base Excess 26.6 mmol/L; VBG HCO3 53 mmol/L (22-26); VBG pCO2 64 mmHg; VBG pH 7.52 (7.32-7.43); VBG pO2 85 mmHg
[2024-06-17 06:08] LABS: Anion Gap 13 (12-20); Blood Urea Nitrogen 40 mg/dL (9-16); Calcium 9.6 mg/dL (8.4-10.2); Carbon Dioxide 41 mmol/L (22-29); Chloride 95 mmol/L (96-108); Creatinine Clr Calc Pharmacy 28.9; Estimated Glomerular Filt Rate 32; Glucose Random 142 mg/dL (60-115); Potassium 3.6 mmol/L (3.3-5.1); Sodium 145 mmol/L (135-145)
--- NOTE | 2024-06-17 06:23 | PC.NURSE ---
0604-critical value received from lab of CO2 of 41, patient resting in bed, oxygen at 0.5 liters N/C, Hospitalist on duty( Dr. Patel) also received message, on unit and went to see patient and looked at her previous values. no new orders at this time, continuous monitor has been on patient and 91% at this time. will continue to monitor
--- NOTE | 2024-06-17 07:00 | CA_ITS ---
Transthoracic Echocardiogram Patient (Last, First, Middle): Rosi Hernández, Gender: Female Date of : 1945 Age: 78 Procedure Date: 06/17/2024 Procedure Type: Transthoracic Echocardiogram Location: S3E Height: 157.48 cm Weight: 78.02 kg BSA: 1.79 m2 Heart Rate: bpm BP: 111 / 55 mmHg Processing Technologist: SUSIE Referring MD: Mc Davis MD Symptoms: chf Study Quality: Fair ECG Rhythm: Sinus Conclusions: - The left ventricular systolic function is normal. The calculated ejection fraction is 68% by biplane method. - Paradoxical, low-flow, low gradient, moderate to severe aortic stenosis. Findings Procedure Information Contrast agent, definity, is being given per protocol without apparent complications. Left Ventricle Normal left ventricular cavity size. There is mildly increased left ventricular wall thickness. The left ventricular systolic function is normal. The calculated ejection fraction is 68% by biplane method. There is no evidence of regional wall motion abnormalities. Evidence suggests grade I (mild) diastolic dysfunction. Right Ventricle The right ventricle was not well visualized. Normal right ventricular cavity size. There is moderate to severely decreased right ventricular systolic function. Atria Both atria are normal in size. Aortic Valve There is severe calcification of the aortic valve. The peak aortic velocity is 2.71 m/s with a calculated peak gradient of 29 mmHg. The mean gradient is 15 mmHg. The aortic valve area is 0.92 cm2. There is no aortic valve regurgitation. Dimensionless index 0.32. Stroke volume index 28ml/m2. Overall, paradoxical, low-flow, low gradient, moderate to severe aortic stenosis. Mitral Valve There is moderate mitral annular calcification. There is no mitral valve regurgitation. There is no mitral valve stenosis. Pulmonic Valve The pulmonic valve is likely normal. Tricuspid Valve There is trace tricuspid valve regurgitation. There is no evidence of pulmonary hypertension. Great Vessels The asc aorta is normal in size. Venous The inferior vena cava is normal in size and collapses less than 50% with inspiration. Pericardium/Pleural There is no evidence of pericardial effusion. Prior Study Comparison No prior study available for comparison. Measurements 2D Linear Measurements IVSd: 1.17 0.6-0.9/0.6-1.0 cm LVIDd: 3.57 3.9-5.3/4.2-5.9 cm LVIDd Index: 1.99 2.4-3.2/2.2-3.1 cm/m2 LVIDs: 2.07 2.0-3.6 cm LVPWd: 1.08 0.7-1.1 cm LA Diam: 2.50 2.7-3.8/3.0-4.0 cm LAIDs Index: 1.40 1.5-2.3 cm/m2 LV Mass: 157.70 67-162/88-224 g LV Mass Index: 88.10 43-95/49-115 g/m2 LVOT Diam: 1.90 3.0+(-)1.3 cm 2D Systolic Function EF 4C: 66.80 >55% EF 2C: 69.00 >55% EF BiP: 67.90 >55% Mitral Valve MV VTI: 0.38 MV Pk Jaleel: 1.39 MV Mn Jaleel: 0.79 MV Pk Grad: 8.00 MV Mn Grad: 3.00 MV Pk E: 0.80 MV PK A: 1.20 MV Decel Time: 414.00 E/A: 0.70 E'Lateral: 4.79 E'Medial: 2.94 E/E' Med: 27.20 E/E' Lat: 16.70 PHT: 121.00 MVA PHT: 1.82 MVA Continuity: 1.34 Decel [place]: 1.93 Aortic Valve AoV Pk Jaleel: 2.71 AoV Mn Jaleel: 1.82 AoV VTI: 0.55 AoV Pk Grad: 29.00 Aov Mn Grad: 15.00 LUL Cont.VTI: 0.92 LVOT LVOT Pk Jaleel: 0.88 LVOT Mn Jaleel: 0.63 LVOT VTI: 0.18 LVOT Pk Grad: 3.00 LVOT Mn Grad: 2.00 LVOT Diam: 1.90 LVOT Area: 2.84 Diastolic Function MV Pk E: 0.80 MV Pk A: 1.20 E/A: 0.70 E'Medial: 2.94 E/E' Med: 27.20 E' Laterial: 4.79 E/E' Lat: 16.70 Right Ventricle TAPSE (mm): 8.00 TVS' Jaleel: 8.00 Tricuspid Valve RA Press: 8.00 Great Vessels Aorta Ao Asc: 2.90 2.1-3.4 cm Updated in Other Vendor System with Status of Final Mark Kc MD electronically signed on 06/17/2024 12:25:23 PM with status of Final
[2024-06-17 07:16] LABS: Glucose, Whole Blood 133 mg/dL (60-115)
[2024-06-17] MEDS: Fluticasone Propionate 250 MCG BLST.W.DEV 1 PUFF INHALE ×2 (07:54→20:56)
[2024-06-17] MEDS: acetaZOLAMIDE sodium 500 MG VIAL 250 MG IVPUSH (07:57)
[2024-06-17] MEDS: 0.9 % Sodium Chloride Flush 3 ML SYRINGE IVFLUSH ×3 (07:57→20:45)
[2024-06-17] MEDS: Folic Acid 1 MG TABLET 0.5 MG PO (08:24)
[2024-06-17] MEDS: FLUoxetine HCl 20 MG CAPSULE PO (08:24)
[2024-06-17] MEDS: Cholecalciferol (Vitamin D3) 25 MCG TABLET PO (08:24)
[2024-06-17] MEDS: Furosemide 40 MG TABLET PO ×2 (08:24→17:21)
[2024-06-17] MEDS: oxyBUTYnin chloride ER 5 MG TAB.ER.24 PO (08:24)
[2024-06-17] MEDS: Cyanocobalamin (Vitamin B-12) 500 MCG TABLET PO (08:25)
[2024-06-17] MEDS: Metoprolol Succinate ER 25 MG TAB.ER.24H PO (08:25)
[2024-06-17] MEDS: methIMAzole 5 MG TABLET 2.5 MG PO (08:27)
[2024-06-17] MEDS: Ferrous Sulfate 324 MG TABLET.DR PO (08:28)
[2024-06-17] MEDS: levETIRAcetam 250 MG TABLET PO ×2 (08:28→20:43)
[2024-06-17] MEDS: Pregabalin 75 MG CAPSULE PO ×3 (08:38→20:43)
--- NOTE | 2024-06-17 11:25 | PC.NURSE ---
Addendum entered by Tory East RN 06/17/24 18:11: Bladder scanned for 389ml, pt unable to void, Straight cath preformed using sterile technique, 400ml of clear yellow urine drained, pt tolerated well. Original Note: Indwelling FC removed per Susan orders, pt tolerated well. Due to void 1700.
--- NOTE | 2024-06-17 11:27 | P.PNIM_ITS ---
Subjective Subjective Date of Service: 06/17/24 Interval History: no cough no dyspnea Review of Systems Review of Systems: Yes Unobtainable due to mental status Physical Exam 2 Vital Signs: Vital Signs: Last Vital Signs Temp 99.7 F 06/17/24 07:33 Pulse 80 06/17/24 07:57 Resp 15 06/17/24 07:57 BP 115/56 L 06/17/24 07:33 Pulse Ox 92 06/17/24 07:33 O2 Del Method Nasal Cannula 06/17/24 07:33 O2 Flow Rate 0.5 06/17/24 07:33 FiO2 30 06/13/24 16:03 BMI result Body Mass Index 31.5 Gen: in no acute distress HEENT: sclera anicteric, moist mucus membranes Neck: supple Lungs: clear to auscultation bilaterally Heart: regular rate and rhythm, no murmurs Abd: soft, non-tender, non-distended Ext: no edema Skin: warm/well-perfused Neuro: alert, chronic facial droop and L-sided weakness Psych: impaired insight Objective Data Active Medications Acetaminophen (Acetaminophen 325 Mg Tablet) 650 mg PO Q6H PRN PRN Reason: Pain, Mild (Pain Scale 1-3), fever or headache Albuterol Sulfate (Albuterol Sulfate 90 Mcg 8 Gm Inhaler) 2 puff INHALE Q6H PRN PRN Reason: wheezing Albuterol/Ipratropium (Albuterol/Iprat 2.5/0.5mg 3 Ml Ampul.Neb) 3 ml INHALE RQ4H WHILE AWAKE [facility] Last Admin: 06/17/24 07:54 Dose: Not Given Documented By: ELMO Non-Admin Reason: Patient Refused Albuterol/Ipratropium (Albuterol/Iprat 2.5/0.5mg 3 Ml Ampul.Neb) 3 ml INHALE Q4H PRN PRN Reason: Wheezing Atorvastatin Calcium (Atorvastatin Calcium 80 Mg Tablet) 80 mg PO BEDTIME [facility] Last Admin: 06/16/24 21:29 Dose: 80 mg Documented By: MORE Calcium Carbonate (Calcium Carbonate 750 Mg Tab.Chew) 750 mg PO Q4H PRN PRN Reason: Heartburn Cyanocobalamin (Cyanocobalamin (Vitamin B-12) 500 Mcg Tablet) 500 mcg PO DAILY [facility] Last Admin: 06/17/24 08:25 Dose: 500 mcg Documented By: SHERIF Enoxaparin Sodium (Enoxaparin Sodium 30 Mg/0.3 Ml Syringe) 30 mg SUBCUT Q24H [facility] Last Admin: 06/16/24 21:30 Dose: 30 mg Documented By: MORE Ferrous Sulfate (Ferrous Sulfate 324 Mg Tablet.) 324 mg PO DAILY [facility] Last Admin: 06/17/24 08:28 Dose: 324 mg Documented By: SHERIF Fluoxetine HCl (Fluoxetine Hcl 20 Mg Capsule) 20 mg PO DAILY [facility] Last Admin: 06/17/24 08:24 Dose: 20 mg Documented By: SHERIF Fluticasone Propionate (Fluticasone Propionate 250 Mcg Blst.W.Dev) 1 puff INHALE RBID [facility] Last Admin: 06/17/24 07:54 Dose: 1 puff Documented By: ELMO Folic Acid (Folic Acid 1 Mg Tablet) 0.5 mg PO DAILY [facility] Last Admin: 06/17/24 08:24 Dose: 0.5 mg Documented By: SHERIF Furosemide (Furosemide 40 Mg Tablet) 40 mg PO BID@0900,1800 [facility]; Protocol Last Admin: 06/17/24 08:24 Dose: 40 mg Documented By: SHERIF Glucose (Glucose Gel 15 Gm Gel..Gram.) 15 gm PO Q15M PRN; Protocol PRN Reason: per Hypoglycemia Standing Ord. Dextrose (D10) 250 mls @ 750 mls/hr IV Q15M PRN; Protocol PRN Reason: per Hypoglycemia Standing Ord. Insulin Human Lispro (Insulin Lispro 100 Unit/Ml 3 Ml Vial) 0 unit SUBCUT QIDACHS [facility]; Protocol Last Admin: 06/17/24 08:03 Dose: Not Given Documented By: SHERIF Non-Admin Reason: No Insulin Coverage Levalbuterol HCl (Levalbuterol Hcl 1.25 Mg/3 Ml Vial.Rocio) 1.25 mg INHALE Q4H PRN PRN Reason: wheezing Levetiracetam (Levetiracetam 250 Mg Tablet) 250 mg PO BID [facility] Last Admin: 06/17/24 08:28 Dose: 250 mg Documented By: SHERIF Loperamide HCl (Loperamide Hcl 2 Mg Capsule) 2 mg PO Q4H PRN PRN Reason: Diarrhea Magnesium Hydroxide (Milk Of Magnesia 30 Ml Oral.Susp) 30 ml PO DAILY PRN PRN Reason: Constipation Melatonin (Melatonin 3 Mg Tablet) 6 mg PO BEDTIME PRN PRN Reason: Insomnia Methimazole (Methimazole 5 Mg Tablet) 2.5 mg PO DAILY [facility] Last Admin: 06/17/24 08:27 Dose: 2.5 mg Documented By: SHERIF Metoprolol Succinate (Metoprolol Succinate Er 25 Mg Tab.Er.24h) 25 mg PO DAILY [facility]; Protocol Last Admin: 06/17/24 08:25 Dose: 25 mg Documented By: SHERIF Ondansetron HCl (Ondansetron Hcl 4 Mg/2 Ml Vial) 4 mg IVPUSH Q8H PRN PRN Reason: Nausea and Vomiting Oxybutynin Chloride (Oxybutynin Chloride Er 5 Mg Tab.Er.24) 5 mg PO DAILY [facility] Last Admin: 06/17/24 08:24 Dose: 5 mg Documented By: SHERIF Pregabalin (Pregabalin 75 Mg Capsule) 75 mg PO TID [facility] Last Admin: 06/17/24 08:38 Dose: 75 mg Documented By: SHERIF Sodium Chloride (0.9 % Sodium Chloride Flush 3 Ml Syringe) 3 ml IVFLUSH QSHIFT [facility] Last Admin: 06/17/24 07:57 Dose: 3 ml Documented By: SHERIF Trazodone HCl (Trazodone Hcl 100 Mg Tablet) 100 mg PO BEDTIME [facility] Last Admin: 06/16/24 21:29 Dose: 100 mg Documented By: MORE Vitamin D (Cholecalciferol (Vitamin D3) 25 Mcg Tablet) 25 mcg PO DAILY [facility] Last Admin: 06/17/24 08:24 Dose: 25 mcg Documented By: SHERIF Labs 06/16/24 05:58 06/17/24 05:24 Labs: Laboratory Results - last 24 hr 06/16/24 06/16/24 06/16/24 11:30 15:55 16:06 VBG pH VBG pCO2 VBG pO2 VBG HCO3 VBG O2 Saturation VBG Base Excess Anion Gap Estim Creat Clear Calc Estimated GFR POC Glucose 194 H 171 H Random Glucose Calcium Stool Occult Blood NEGATIVE 06/16/24 06/17/2424 20:40 05:24 05:28 VBG pH 7.52 H VBG pCO2 64 VBG pO2 85 VBG HCO3 53 H VBG O2 Saturation 99.0 VBG Base Excess 26.6 Anion Gap 13 Estim Creat Clear Calc 28.9 Estimated GFR 32 POC Glucose 169 H Random Glucose 142 H Calcium 9.6 Stool Occult Blood 06/17/24 07:13 VBG pH VBG pCO2 VBG pO2 VBG HCO3 VBG O2 Saturation VBG Base Excess Anion Gap Estim Creat Clear Calc Estimated GFR POC Glucose 133 H Random Glucose Calcium Stool Occult Blood Assessment and Plan (1) Congestive heart failure: Status: Acute Plan d5 78yo F LTC resident [facility] with COPD on home O2, prior CVA with L-sided weakness, HTN, DM2, CHF with unknown EF, dementia, COPD, and obesity presenting with lethargy, found to have hypercapnea and hypoxia due to CHF exacerbation CHF exacerbation, unknown EF - euvolemic; net negative 6L; changed from IV to PO furosemide, give 1 dose of IV acetazolamide for CO2 retention and recheck BMP/VBG in AM, low-Na diet - TTE pending - continue metoprolol succinate KIRAN - suspect cardiorenal, monitor SCr with diuresis acute/chronic hypercapneic/hypoxic resp failure - initially on BiPAP in ED - on home O2; appears to retain CO2 so goal SaO2 is no greater than 92%; prn albuterol nebs; ICS inhaler small-vessel occlusive disease with superimpoased acute stroke unable to be excluded on CT - MRI without any new lesion prior CVA with residual L facial droop and L weakness - ASA + clopidogrel + atorvastatin hyperthyroidism - methimazole seizure disorder - levetiracetam neuropathy - pregabalin- decreased dose due to renal failure + somnolene DM2 - shae-dose lispro mood disorder - trazodone + fluoxetine VTE prophylaxis - enoxaparin dispo - eventual return to [facility] In my clinical judgment, the patient requires continued inpatient hospitalization for the following reasons: CHF I updated the pt's HCP Mariely Walsh by phone Total time managing care of this patient today: 40 minutes. Quality Stroke Does the patient have a stroke diagnosis?: No VTE Prior VTE?: No VTE Risk Level:: Medical - moderate - high VTE Device Contraindication: Treatment Not Indicated VTE Drug Contraindication: N/A - Med Ordered
--- NOTE | 2024-06-17 11:41 | MHC.CLN ---
F/U DIET LIBERALIZED TO REGULAR, GROUND CONSISTENCY. LIBERALIZED TO PROMOTE PO INTAKE. ADDING ENSURE TID TO INCREASE NUTRITIONAL INTAKE AND PROMOTE WOUND HEALING. SKIN WITH STAGE II TO BILATERAL BUTTOCKS. INTAKE VARIABLE, 0-100%. FOLLOW FOR PO INTAKE, DIET TOLERANCE, AND SKIN INTEGRITY.
[2024-06-17 11:52] LABS: Glucose, Whole Blood 172 mg/dL (60-115)
[2024-06-17] MEDS: Insulin Lispro 100 UNIT/ML 3 ML VIAL SUBCUT ×2 (11:54→17:22)
--- NOTE | 2024-06-17 13:34 | MHC.CM.PN ---
EMR REVIEWED AND PT HAS NOT BEEN MEDICALLY CLEARED FOR DC HOME WITH RESUMPTION OF SERVICES. 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 /O.T. (STEPHANI [phone]) PER HCP LUCIANO, SHE WILL NEED TO BE NOTIFIED BEFORE P.T. DC'S TO REINSTATE SERVICES. PER MD ROUNDS, MAYBE 06/18. CM WILL REACH OUT TO HCP TO INFORM. CM WILL CONTINUE TO FOLLOW.
[2024-06-17] MEDS: Albuterol/Iprat 2.5/0.5MG 3 ML AMPUL.NEB INHALE ×2 (15:06→20:56)
[2024-06-17 16:00] LABS: Glucose, Whole Blood 164 mg/dL (60-115)
--- NOTE | 2024-06-17 17:01 | HO.WOUND ---
Wound Consult: Initial 78yr old?female admitted [place] [facility] [place] - See progress notes and H&P for detailed history.? Wound consult placed for sacral wound POA.? Patient agreeable to assessment and photo documentation.? Patient is well known to this law writer from previous admissions. Sacrum Etiology: resolving Deep Tissue Injury??Present on Admission Wound Bed: dark intact tissue nonblanchable with irregular boards - central area with red moist tissue in scattered areas Edges: ? irregular and attached Shala wound: ? MASD - Hyperpigemtation and hypopigmentation - evidence of previous injury No Induration, Fluctuance or Warmth noted Pain: denies Goals of Treatment: ? Off Load Pressure and triad and foam to allow for moist wound healing and to protect from friction Bilateral Posterior calfs are noted for suspected Device related Deep Tissue Injury secondary to us of Trevor lift at facility. The areas are linear and in pattern of lift pad location - remain intact and nonblanchable ut appear to be resurfaced. Recommend skin prep application and off load pressure. Left Heel noted for healed previous pressure injury evidence - at [facility] for reopening - preventative measures in place foam dressing and heel elevation noted. ALYSSA mattress in place and off loading with pillows. Recommendations: 1. Turn and Reposition every 2 hours and as needed for patient comfort.? Use pillows or wedges to support off loading positions. 2. Off Load all bony prominences with use of pillows and heel boots if needed.? Apply Preventative foams where needed. ? 3. Monitor for incontinence and moisture control, use barrier creams when needed for prevention and treatment. 4. Provide adequate and supplemental nutrition.? 5. Order low air loss mattress. 6. When applicable maintain blood glucose levels per Providers order. 7. Sacrum - Off Load Pressure? - Cleanse with PH balance spray or wipes, pat dry. ?Apply thin layer of Triad to wound bed. Do not remove all of paste between applications as this may cause further skin damage.? Cover with foam dressing to aid in off loading and protection from friction. Change every other day and PRN. 8. Bilateral Posterior Calf - Apply skin prep daily to protect tissue and decrease friction. Off Load Pressure to the area. 9. Left Heel - Elevate off of bed surface with pillows. Apply skin prep let dry apply Heel foam dressing change every 7 days and PRN. Be sure to peel back and assess skin Q shift. Re-consult wound care Nurse for wound deterioration or wound changes.
[2024-06-17] MEDS: Atorvastatin Calcium 80 MG TABLET PO (20:43)
[2024-06-17] MEDS: traZODone HCL 100 MG TABLET PO (20:43)
[2024-06-17] MEDS: Enoxaparin Sodium 30 MG/0.3 ML SYRINGE SUBCUT (20:43)
[2024-06-17] MEDS: Nystatin Powder 15 GM BOTTLE 1 APPL TOPICAL (20:45)
[2024-06-17 20:49] LABS: Glucose, Whole Blood 139 mg/dL (60-115)
[2024-06-18] VITALS (11 sets, daily range): BP systolic 110–129; BP diastolic 55–60; PULSE 60–85; RESP 16–20; TEMP 36.1–37; O2SAT 88–100; BMI 31.4
--- NOTE | 2024-06-18 02:55 | PC.NURSE ---
0130- PATIENT STILL UNABLE TO VOID, DENIED BLADDER PAIN OR PRESSURE, BLADDER SCANNED FOR 440ML AND ST CATH'D FOR 400ML DARK YELLOW URINE AT 0145. PATIENT TOLERATED WELL AND WILL CONTINUE TO MONITOR. NEXT DTV BETWEEN [id number].
[2024-06-18 06:56] LABS: Venous Blood Gas Refer to POC result
[2024-06-18 06:58] LABS: VBG HCO3 49 mmol/L (22-26); VBG pCO2 67 mmHg; VBG pH 7.47 (7.32-7.43); VBG pO2 52 mmHg
[2024-06-18 07:07] LABS: Anion Gap 17 (12-20); Blood Urea Nitrogen 39 mg/dL (9-16); Calcium 9.4 mg/dL (8.4-10.2); Carbon Dioxide 36 mmol/L (22-29); Chloride 93 mmol/L (96-108); Estimated Glomerular Filt Rate 31; Glucose Random 133 mg/dL (60-115); Potassium 3.7 mmol/L (3.3-5.1); Sodium 142 mmol/L (135-145)
[2024-06-18 07:22] LABS: B Type Natriuretic Peptide 25 pg/mL (<100)
[2024-06-18 07:36] LABS: Glucose, Whole Blood 141 mg/dL (60-115)
[2024-06-18] MEDS: Albuterol/Iprat 2.5/0.5MG 3 ML AMPUL.NEB INHALE ×4 (07:40→20:22)
[2024-06-18] MEDS: Fluticasone Propionate 250 MCG BLST.W.DEV 1 PUFF INHALE ×2 (07:40→20:12)
[2024-06-18] MEDS: levETIRAcetam 250 MG TABLET PO ×2 (07:49→20:12)
[2024-06-18] MEDS: Cyanocobalamin (Vitamin B-12) 500 MCG TABLET PO (07:49)
[2024-06-18] MEDS: Pregabalin 75 MG CAPSULE PO ×3 (07:49→20:12)
[2024-06-18] MEDS: oxyBUTYnin chloride ER 5 MG TAB.ER.24 PO (07:49)
[2024-06-18] MEDS: Metoprolol Succinate ER 25 MG TAB.ER.24H PO (07:49)
[2024-06-18] MEDS: FLUoxetine HCl 20 MG CAPSULE PO (07:49)
[2024-06-18] MEDS: Cholecalciferol (Vitamin D3) 25 MCG TABLET PO (07:50)
[2024-06-18] MEDS: Folic Acid 1 MG TABLET 0.5 MG PO (07:51)
[2024-06-18] MEDS: Ferrous Sulfate 324 MG TABLET.DR PO (07:51)
[2024-06-18] MEDS: methIMAzole 5 MG TABLET 2.5 MG PO (07:51)
[2024-06-18] MEDS: Nystatin Powder 15 GM BOTTLE 1 APPL TOPICAL ×2 (07:52→20:26)
[2024-06-18] MEDS: 0.9 % Sodium Chloride Flush 3 ML SYRINGE IVFLUSH ×3 (07:52→20:25)
[2024-06-18 11:28] LABS: Glucose, Whole Blood 149 mg/dL (60-115)
--- NOTE | 2024-06-18 11:49 | P.PNIM_ITS ---
Subjective Subjective Date of Service: 06/18/24 Interval History: no complaints SCr up Review of Systems Review of Systems: Yes all other systems are reviewed and are negative Physical Exam 2 Vital Signs: Vital Signs: Last Vital Signs Temp 98.6 F 06/18/24 11:29 Pulse 60 06/18/24 11:29 Resp 16 06/18/24 11:29 BP 110/56 L 06/18/24 11:29 Pulse Ox 96 06/18/24 11:29 O2 Del Method Nasal Cannula 06/18/24 11:29 O2 Flow Rate 0.5 06/18/24 11:29 FiO2 30 06/13/24 16:03 BMI result Body Mass Index 31.4 Gen: in no acute distress HEENT: sclera anicteric, moist mucus membranes Neck: supple Lungs: clear to auscultation bilaterally Heart: regular rate and rhythm, no murmurs Abd: soft, non-tender, non-distended Ext: no edema Skin: warm/well-perfused Neuro: alert, chronic facial droop and L-sided weakness Psych: impaired insight Objective Data Active Medications Acetaminophen (Acetaminophen 325 Mg Tablet) 650 mg PO Q6H PRN PRN Reason: Pain, Mild (Pain Scale 1-3), fever or headache Albuterol Sulfate (Albuterol Sulfate 90 Mcg 8 Gm Inhaler) 2 puff INHALE Q6H PRN PRN Reason: wheezing Albuterol/Ipratropium (Albuterol/Iprat 2.5/0.5mg 3 Ml Ampul.Neb) 3 ml INHALE RQ4H WHILE AWAKE [facility] Last Admin: 06/18/24 11:11 Dose: 3 ml Documented By: NICHOLAS Albuterol/Ipratropium (Albuterol/Iprat 2.5/0.5mg 3 Ml Ampul.Neb) 3 ml INHALE Q4H PRN PRN Reason: Wheezing Atorvastatin Calcium (Atorvastatin Calcium 80 Mg Tablet) 80 mg PO BEDTIME [facility] Last Admin: 06/17/24 20:43 Dose: 80 mg Documented By: MORE Calcium Carbonate (Calcium Carbonate 750 Mg Tab.Chew) 750 mg PO Q4H PRN PRN Reason: Heartburn Cyanocobalamin (Cyanocobalamin (Vitamin B-12) 500 Mcg Tablet) 500 mcg PO DAILY [facility] Last Admin: 06/18/24 07:49 Dose: 500 mcg Documented By: ESME Enoxaparin Sodium (Enoxaparin Sodium 30 Mg/0.3 Ml Syringe) 30 mg SUBCUT Q24H [facility] Last Admin: 06/17/24 20:43 Dose: 30 mg Documented By: MORE Ferrous Sulfate (Ferrous Sulfate 324 Mg Tablet.) 324 mg PO DAILY [facility] Last Admin: 06/18/24 07:51 Dose: 324 mg Documented By: ESME Fluoxetine HCl (Fluoxetine Hcl 20 Mg Capsule) 20 mg PO DAILY [facility] Last Admin: 06/18/24 07:49 Dose: 20 mg Documented By: ESME Fluticasone Propionate (Fluticasone Propionate 250 Mcg Blst.W.Dev) 1 puff INHALE RBID [facility] Last Admin: 06/18/24 07:40 Dose: 1 puff Documented By: ELMO Folic Acid (Folic Acid 1 Mg Tablet) 0.5 mg PO DAILY [facility] Last Admin: 06/18/24 07:51 Dose: 0.5 mg Documented By: ESME Furosemide (Furosemide 40 Mg Tablet) 40 mg PO BID@0900,1800 [facility]; Protocol Last Admin: 06/17/24 17:21 Dose: 40 mg Documented By: SHERIF Glucose (Glucose Gel 15 Gm Gel..Gram.) 15 gm PO Q15M PRN; Protocol PRN Reason: per Hypoglycemia Standing Ord. Dextrose (D10) 250 mls @ 750 mls/hr IV Q15M PRN; Protocol PRN Reason: per Hypoglycemia Standing Ord. Insulin Human Lispro (Insulin Lispro 100 Unit/Ml 3 Ml Vial) 0 unit SUBCUT QIDACHS [facility]; Protocol Last Admin: 06/18/24 11:29 Dose: Not Given Documented By: ESME Non-Admin Reason: No Insulin Coverage Levalbuterol HCl (Levalbuterol Hcl 1.25 Mg/3 Ml Vial.Neb) 1.25 mg INHALE Q4H PRN PRN Reason: wheezing Levetiracetam (Levetiracetam 250 Mg Tablet) 250 mg PO BID [facility] Last Admin: 06/18/24 07:49 Dose: 250 mg Documented By: ESME Loperamide HCl (Loperamide Hcl 2 Mg Capsule) 2 mg PO Q4H PRN PRN Reason: Diarrhea Magnesium Hydroxide (Milk Of Magnesia 30 Ml Oral.Susp) 30 ml PO DAILY PRN PRN Reason: Constipation Melatonin (Melatonin 3 Mg Tablet) 6 mg PO BEDTIME PRN PRN Reason: Insomnia Methimazole (Methimazole 5 Mg Tablet) 2.5 mg PO DAILY [facility] Last Admin: 06/18/24 07:51 Dose: 2.5 mg Documented By: ESME Metoprolol Succinate (Metoprolol Succinate Er 25 Mg Tab.Er.24h) 25 mg PO DAILY [facility]; Protocol Last Admin: 06/18/24 07:49 Dose: 25 mg Documented By: ESME Nystatin (Nystatin Powder 15 Gm Bottle) 1 appl TOPICAL BID [facility] Last Admin: 06/18/24 07:52 Dose: 1 appl Documented By: ESME Ondansetron HCl (Ondansetron Hcl 4 Mg/2 Ml Vial) 4 mg IVPUSH Q8H PRN PRN Reason: Nausea and Vomiting Oxybutynin Chloride (Oxybutynin Chloride Er 5 Mg Tab.Er.24) 5 mg PO DAILY [facility] Last Admin: 06/18/24 07:49 Dose: 5 mg Documented By: ESME Pregabalin (Pregabalin 75 Mg Capsule) 75 mg PO TID [facility] Last Admin: 06/18/24 07:49 Dose: 75 mg Documented By: ESME Sodium Chloride (0.9 % Sodium Chloride Flush 3 Ml Syringe) 3 ml IVFLUSH QSHIFT [facility] Last Admin: 06/18/24 07:52 Dose: 3 ml Documented By: ESME Trazodone HCl (Trazodone Hcl 100 Mg Tablet) 100 mg PO BEDTIME [facility] Last Admin: 06/17/24 20:43 Dose: 100 mg Documented By: MORE Vitamin D (Cholecalciferol (Vitamin D3) 25 Mcg Tablet) 25 mcg PO DAILY [facility] Last Admin: 06/18/24 07:50 Dose: 25 mcg Documented By: ESME Labs 06/16/24 05:58 06/18/24 06:46 Labs: Laboratory Results - last 24 hr 06/17/24 06/17/24 06/17/24 11:50 15:57 20:40 VBG pH VBG pCO2 VBG pO2 VBG HCO3 VBG O2 Saturation VBG Base Excess Anion Gap Estim Creat Clear Calc Estimated GFR POC Glucose 172 H 164 H 139 H Random Glucose Calcium B-Natriuretic Peptide 06/18/24 06/18/24 06/18/24 06:46 06:51 07:32 VBG pH 7.47 H VBG pCO2 67 VBG pO2 52 VBG HCO3 49 H VBG O2 Saturation 79.0 VBG Base Excess 22.0 Anion Gap 17 Estim Creat Clear Calc 28.0 Estimated GFR 31 POC Glucose 141 H Random Glucose 133 H Calcium 9.4 B-Natriuretic Peptide 25 06/18/24 11:19 VBG pH VBG pCO2 VBG pO2 VBG HCO3 VBG O2 Saturation VBG Base Excess Anion Gap Estim Creat Clear Calc Estimated GFR POC Glucose 149 H Random Glucose Calcium B-Natriuretic Peptide Assessment and Plan (1) Congestive heart failure: Status: Acute Plan d6 78yo F LTC resident of [facility] with COPD on home O2, prior CVA with L-sided weakness, HTN, DM2, CHF with unknown EF, dementia, COPD, and obesity presenting with lethargy, found to have hypercapnea and hypoxia due to CHF exacerbation acute/chronic HFpEF mod-sev aortic stenosis - euvolemic; net negative 6L; changed from IV to PO furosemide, also got acetazolamide for CO2 retention. SCr up today and pt appears dry; will hold furosemide and recheck BMP in AM - TTE 06/17: - The left ventricular systolic function is normal. The calculated ejection fraction is 68% by biplane method. - Paradoxical, low-flow, low gradient, moderate to severe aortic stenosis - continue metoprolol succinate - will need Cardiology folow-up KIRAN - appears dry; hold furosemide and recheck BMP in AM acute/chronic hypercapneic/hypoxic resp failure - initially on BiPAP in ED - on home O2; appears to retain CO2 so goal SaO2 is no greater than 92%; prn albuterol nebs; ICS inhaler small-vessel occlusive disease with superimposed acute stroke unable to be excluded on CT - MRI without any new lesion prior CVA with residual L facial droop and L weakness - ASA + clopidogrel + atorvastatin hyperthyroidism - methimazole seizure disorder - levetiracetam neuropathy - pregabalin- decreased dose due to renal failure + somnolene DM2 - shae-dose lispro mood disorder - trazodone + fluoxetine VTE prophylaxis - enoxaparin dispo - eventual return to [facility] In my clinical judgment, the patient requires continued inpatient hospitalization for the following reasons: KIRAN Total time managing care of this patient today: 40 minutes. Quality Stroke Does the patient have a stroke diagnosis?: No VTE Prior VTE?: No VTE Risk Level:: Medical - moderate - high VTE Device Contraindication: Treatment Not Indicated VTE Drug Contraindication: N/A - Med Ordered
--- NOTE | 2024-06-18 15:37 | MHC.SLORD ---
Speech Language Pathology Order Status: Pt resting soundly did not open eyes when calling her name in AM and again in PM. Tolerating diet per RN. F/u x 1 prior to D/C.
[2024-06-18 16:21] LABS: Glucose, Whole Blood 191 mg/dL (60-115)
[2024-06-18] MEDS: Insulin Lispro 100 UNIT/ML 3 ML VIAL SUBCUT ×2 (16:27→20:11)
[2024-06-18 19:53] LABS: Glucose, Whole Blood 156 mg/dL (60-115)
[2024-06-18] MEDS: Enoxaparin Sodium 30 MG/0.3 ML SYRINGE SUBCUT (20:12)
[2024-06-18] MEDS: Atorvastatin Calcium 80 MG TABLET PO (20:12)
[2024-06-18] MEDS: traZODone HCL 100 MG TABLET PO (20:12)
[2024-06-19 03:37] VITALS: BP 123/60; PULSE 84; RESP 18; TEMP 36.2; O2SAT 91
[2024-06-19 06:00] VITALS: BMI 31.6
[2024-06-19 07:26] LABS: Anion Gap 18 (12-20); Blood Urea Nitrogen 41 mg/dL (9-16); Carbon Dioxide 32 mmol/L (22-29); Chloride 95 mmol/L (96-108); Creatinine Clr Calc Pharmacy 30.1; Estimated Glomerular Filt Rate 34; Glucose Random 166 mg/dL (60-115); Potassium 4.3 mmol/L (3.3-5.1); Sodium 141 mmol/L (135-145)
[2024-06-19 07:35] VITALS: BP 132/60; PULSE 66; RESP 18; TEMP 36; O2SAT 93
[2024-06-19 07:46] LABS: Glucose, Whole Blood 202 mg/dL (60-115)
[2024-06-19] MEDS: FLUoxetine HCl 20 MG CAPSULE PO (09:48)
[2024-06-19] MEDS: Folic Acid 1 MG TABLET 0.5 MG PO (09:49)
[2024-06-19] MEDS: Pregabalin 75 MG CAPSULE PO (09:49)
[2024-06-19] MEDS: methIMAzole 5 MG TABLET 2.5 MG PO (09:52)
[2024-06-19] MEDS: Ferrous Sulfate 324 MG TABLET.DR PO (09:52)
[2024-06-19] MEDS: Cholecalciferol (Vitamin D3) 25 MCG TABLET PO (09:52)
[2024-06-19] MEDS: 0.9 % Sodium Chloride Flush 3 ML SYRINGE IVFLUSH (09:53)
[2024-06-19] MEDS: Insulin Lispro 100 UNIT/ML 3 ML VIAL SUBCUT (09:53)
[2024-06-19] MEDS: Cyanocobalamin (Vitamin B-12) 500 MCG TABLET PO (09:53)
[2024-06-19] MEDS: oxyBUTYnin chloride ER 5 MG TAB.ER.24 PO (10:21)
[2024-06-19] MEDS: Metoprolol Succinate ER 25 MG TAB.ER.24H PO (10:21)
[2024-06-19] MEDS: levETIRAcetam 250 MG TABLET PO (10:25)
--- NOTE | 2024-06-19 10:38 | MHC.CLN ---
F/U DIET=REGULAR, GROUND CONSISTENCY. LIBERALIZED TO PROMOTE PO INTAKE. ENSURE TID TO INCREASE NUTRITIONAL INTAKE AND PROMOTE WOUND HEALING. SKIN WITH DTI TO BILATERAL BUTTOCKS. INTAKE VARIABLE, 25-75%. 1:1 TOTAL FEEDING ASSIST. FOLLOW FOR PO INTAKE, DIET TOLERANCE, AND SKIN INTEGRITY.
--- NOTE | 2024-06-19 11:03 | MHC.CM.PN ---
Per MD rounds, patient medically cleared for dc home w/ resumption of 13/02 private care, SN via [facility], and PT/OT via [facility] waiver. LM for Marily w/ [facility] waiver to inform of dc. HCP Mariely aware of dc and reports that [facility] ADMINISTRATIVE ASSISTANT's will resume care today. [facility] also aware of dc. BLS transport scheduled for 1pm. MD and RN aware. IMM delivered.
[2024-06-19 11:28] VITALS: PULSE 66; RESP 18; O2SAT 98
[2024-06-19] MEDS: Albuterol/Iprat 2.5/0.5MG 3 ML AMPUL.NEB INHALE (11:28)
[2024-06-19 11:29] VITALS: BP 116/55; PULSE 65; RESP 18; TEMP 36.6; O2SAT 93
[2024-06-19 11:39] LABS: Glucose, Whole Blood 209 mg/dL (60-115)
--- NOTE | 2024-06-19 12:11 | W.MHC.F2F ---
Service Date Service Date: 06/19/24 Encounter Date of encounter: 06/19/24 Reasons for Services Signs and symptoms assessed: CHF Reason for long-term: medication management, medication treatment and teach disease management MD Overseeing Care: Cliff Walsh Homebound: Leaving the home is medically contraindicated at this time without the asist of a device and/or another person due th the listed conditions above and below. Reason homebound: bedbound/chairbound and cognitively impaired / unsafe Certification: Based on the above findings, I certify that this patient is confined to the home and needs intermittent long-term care, physical therapy and/or speech therapy, or continues to need occupational therapy. The patient is under my care, and I have initiated the establishment of the plan of care. The patient will be followed by a physician who will periodically review the plan of care. Time Spent With Patient Time: Total time managing care of this patient today ____ minutes.
--- NOTE | 2024-06-19 12:12 | MHC.SL.SWA ---
Speech Pathologist Impression: Mild to moderate oral phase dysphagia at baseline, adequate tolerance of NDD2 with thins given 1:1 feeding and slow pacing Risk of Aspiration Due to: Hx of dysphagia Weakness Dysphasia Diet Status: Recommend GROUND/MECH ALTERED (NDD2) diet for ease of mastication in light of patient's lack of teeth, THIN liquids, 1:1 supervision d/t confusion, provide assistance with tray set up and feeding as needed. Pills administered WHOLE in PUREE or LIQUID per patient's tolerance. Liquid Consistency and Strategies for Safe Swallow: Liquid Intake Recommendation: Thin Liquid Intake Strategies: Small Sips Solid Food Consistency: Dietary Recommendations: Grnd/Mech Altered (NDD2) Additional Modifications to Solid Foods: Recommend CONTINUE on GROUND/MECH ALTERED (NDD2) diet and THIN liquids, pills WHOLE in LIQUID or PUREE per patient's tolerance. Patient will need direct supervision d/t confusion, assist with feeding as needed. Aspiration precautions apply. ICT SALES REPRESENTATIVE to f/u 1-2x to monitor tolerance. Oral Medication Intake: Whole with Liquid Please contact the pharmacy regarding appropriate crushable or liquid drug formulations that are available whenever modified delivery is recommended. Compensatory Strategies and Precautions to be Taken for Safe Swallow: Sitting Upright (90 deg) Small Bites and Sips Alternate Liquids/Solids Rate of Ingestion Change Supervision While Eating and Drinking for Safe Swallow: Total Supervision (1:1) Foods to Avoid: Hard, difficult to chew solids Swallowing Recommended Treatments: Compens. Strategy Educat. Recommendation for Speech: Inpatient Speech Therapy Comment: Pt tolerating NDD2 with thins without overt s/s of aspiration. 1:1 feeding and aspiration precautions in place. No further ICT SALES REPRESENTATIVE indicated at this time. Frequency/Duration: Date Range for Service Req: Timeline to reassess: Cyber Operator Clinican/Clinical Fellow: No Supervisory Statement: I have reviewed and agree with the student/clinical fellow's documentation: N/A Speech Language Pathologist: Flores Kirby M.S., CCC-ICT SALES REPRESENTATIVE
--- NOTE | 2024-06-19 12:17 | PM.DS ---
DS: Providers Provider Date of Service: 06/19/24 Date of admission: 06/13/24 20:09 Date of discharge: 06/19/24 Primary care physician: Cliff Walsh MD Consults: 06/14/24 10:48 Consult to Wound Care Routine Reason for consultation: st 2 pressure ulcers bilateral buttocks DS: Diagnosis Discharge Diagnosis (1) Acute on chronic heart failure with preserved ejection fraction (HFpEF): Status: Acute (2) Aortic stenosis: Status: Acute (3) KIRAN (acute kidney injury): Status: Acute (4) Iron deficiency anemia: Status: Acute (5) Acute hypoxic on chronic hypercapnic respiratory failure: Status: Acute DS: Summary Hospital Course Hospital Course: From the history and physical by the admitting hospitalist, LINDY Marcum, 06/13/24: Pt is a 78-year-old female with a PMH significant for acute hypercapnic respiratory failure, COPD on home O2, CHF unspecified, history of CVA with left-sided weakness, seizure disorder [id number] type 2 diabetes,?HTN, HLD, and dementia who presents to the ED from [facility] for evaluation of unresponsiveness and no response to painful stimuli. Munden coma score 10 according to EMS upon arrival. Patient is confused, oriented to self only, and minimally verbal at baseline. Patient also is bed-bound and requires Trevor lift for transport at baseline. Patient seen and evaluated at bedside where she is resting comfortably in bed. HPI obtained from chart and provider review. Staff report patient had been declining for the past 2 days with increased lethargy. Staff at facility unaware of any acute medical complaints from the patient, including pain or recent falls. Initial VBG found respiratory acidosis with pH of 7.29 with pCO2 90 and bicarb 43. Patient was placed on BiPAP with good response and eventually transitioned 2 L NC where she was satting at 95%. Repeat VBG improved, showing pH 7.56 with pCO2 41 and bicarb 46. In the ED pt was tachypneic to 24 and with soft BP as low as 109/40. Labs were significant for sodium 147, creatinine 1.57 (increased from 0.90 on 06/06/2024), and BNP 919. No leukocytosis. Stable microcytic anemia of 8.7/29.2. Hepatic function baseline. Ammonia WNL at 41. Procalcitonin WNL at 0.04. UA Likely negative for UTI. Tested negative for COVID, RSV, flu. CXR showed pulmonary edema and bilateral pleural effusions left worse than prior. CT?of head showed no acute intracranial hemorrhage, but showed small-vessel occlusive disease though superimposed acute stroke at nonhemorrhagic ischemia can not be excluded. EKG demonstrated normal sinus rhythm without evidence of acute ST elevations or depressions. Repeat EKG similar to prior. Pt was treated with Solu-Medrol, levofloxacin, DuoNebs, and furosemide. Pt will be admitted to the hospital for treatment and further evaluation of acute on chronic hypoxic and hypercapnic respiratory failure in the setting of acute CHF exacerbation. 78yo F resident of [facility] with COPD on home O2, prior CVA with L-sided weakness, HTN, DM2, CHF with unknown EF, dementia, COPD, and obesity presenting with lethargy, and found to have hypercapnea and hypoxia due to CHF exacerbation, for which she was admitted to the hospitalist service. Hospital course by problem: acute/chronic HFpEF mod-sev aortic stenosis KIRAN - Diuresed over 6L on IV furosemide and was also given acetazolamide given CO2 retention. Changed to PO diuretic when euvolemic. Became a little dry with KIRAN and diuretics held for one day; resumed on discharge with plan to recheck BMP in 1 week. - TTE 06/17: - The left ventricular systolic function is normal. The calculated ejection fraction is 68% by biplane method. - Paradoxical, low-flow, low gradient, moderate to severe aortic stenosis - Continued metoprolol succinate - Will need Cardiology outpatient consult; referred to [facility] acute/chronic hypercapneic/hypoxic resp failure - Initially on BiPAP in ED. Then weaned to home O2. Appears to retain CO2 so goal SaO2 is no greater than 92%. small-vessel occlusive disease with superimposed acute stroke unable to be excluded on CT - MRI without any new lesion; has old CVA with residual L hemiparesis She was discharged back to [facility] with VNA services. Time Attestation Discharge Coordination Time (in mins): 45 Quality: Safe Use of Opioids Does Pt have an Active Cancer Diagnosis on the Problem List?: No Quality: Stroke Does the patient have a stroke diagnosis?: No Physical Exam Vital Signs: Vital Signs: Last Vital Signs Temp 97.8 F 06/19/24 11:29 Pulse 65 06/19/24 11:29 Resp 18 06/19/24 11:29 BP 116/55 L 06/19/24 11:29 Pulse Ox 93 06/19/24 11:29 O2 Del Method Nasal Cannula 06/19/24 11:29 O2 Flow Rate 1 06/19/24 11:29 FiO2 30 06/13/24 16:03 BMI result Body Mass Index 31.6 Gen: in no acute distress HEENT: sclera anicteric, moist mucus membranes Neck: supple Lungs: clear to auscultation bilaterally Heart: regular rate and rhythm, no murmurs Abd: soft, non-tender, non-distended Ext: no edema Skin: warm/well-perfused Neuro: alert, chronic facial droop and L-sided weakness Psych: impaired insight DS: Data Data Completed and Pending Completed studies during hospitalization [Text1]: Laboratory Results WBC 7.3 X10*3/uL (4.8-10.8) 06/16/24 05:58 RBC 3.45 X10*6/uL (4.20-5.50) L 06/16/24 05:58 Hgb 8.8 g/dl (12.0-16.0) L 06/16/24 05:58 Hct 27.7 % (37.0-47.0) L 06/16/24 05:58 MCV 80.3 fL (80.0-98.0) 06/16/24 05:58 MCH 25.5 pg (27.0-33.0) L 06/16/24 05:58 MCHC 31.8 g/dl (31.0-35.0) 06/16/24 05:58 RDW 15.9 % (11.0-16.0) 06/16/24 05:58 Plt Count 167 X10*3/uL (160-400) 06/16/24 05:58 MPV 11.1 fL (9.4-12.3) 06/16/24 05:58 Immature Gran % (Auto) 0.9 % (0.0-0.4) H 06/14/24 06:34 Neut % (Auto) 69.7 % (45-73) 06/14/24 06:34 Lymph % (Auto) 17.4 % (20-40) L 06/14/24 06:34 [place] % (Auto) 11.3 % (2-11) H 06/14/24 06:34 Eos % (Auto) 0.5 % (0-4) 06/14/24 06:34 Baso % (Auto) 0.2 % (0-2) 06/14/24 06:34 Lymph # (Auto) 1.0 X10*3/uL (1.2-4.9) L 06/14/24 06:34 [place] # (Auto) 0.7 X10*3/uL (0.1-1.2) 06/14/24 06:34 Eos # (Auto) 0.0 X10*3/uL (0.0-0.4) 06/14/24 06:34 Baso # (Auto) 0.0 X10*3/uL (0.0-0.2) 06/14/24 06:34 Abs Immat Gran (auto) 0.05 X10*3/uL (0.00-0.03) H 06/14/24 06:34 Absolute Neuts (auto) 4.0 x10*3/uL (2.0-8.3) 06/14/24 06:34 Absolute Nucleated RBC 0.000 X10*3/uL (0.0-0.012) 06/16/24 05:58 Nucleated RBC % (auto) 0.0 /100WBC (0.0-0.2) 06/16/24 05:58 Smear Tech's Comments VERIFIED 06/14/24 06:34 Absolute Retic 0.040 X10*6/uL (0.026-0.095) 06/14/24 06:34 Percent Retic 1.3 % (0.5-1.8) 06/14/24 06:34 Immature Retic Fraction 17.5 % (3.0-15.9) H 06/14/24 06:34 Retic Hgb Equivalent 24.7 pg (30.0-35.0) L 06/14/24 06:34 VBG pH 7.47 (7.32-7.43) H 06/18/24 06:51 VBG pCO2 67 mmHg 06/18/24 06:51 VBG pO2 52 mmHg 06/18/24 06:51 VBG HCO3 49 mmol/L (22-26) H 06/18/24 06:51 VBG O2 Saturation 79.0 % 06/18/24 06:51 VBG Base Excess 22.0 mmol/L 06/18/24 06:51 Sodium 141 mmol/L (135-145) 06/19/24 05:43 Potassium 4.3 mmol/L (3.3-5.1) 06/19/24 05:43 Chloride 95 mmol/L (96-108) L 06/19/24 05:43 Carbon Dioxide 32 mmol/L (22-29) H 06/19/24 05:43 Anion Gap 18 (12-20) 06/19/24 05:43 BUN 41 mg/dL (9-16) H 06/19/24 05:43 Creatinine 1.49 mg/dL (0.5-1.4) H 06/19/24 05:43 Estim Creat Clear Calc 30.1 06/19/24 05:43 Estimated GFR 34 06/19/24 05:43 POC Glucose 209 mg/dL (60-115) H 06/19/24 11:32 Random Glucose 166 mg/dL (60-115) H 06/19/24 05:43 Lactic Acid 0.5 mmol/L (0.5-2.0) 06/13/24 14:08 Calcium 9.0 mg/dL (8.4-10.2) 06/19/24 05:43 Magnesium 1.8 mg/dL (1.6-2.6) 06/16/24 05:58 Iron 36 mcg/dL (30-160) 06/14/24 06:34 TIBC 256 mcg/dL (228-428) 06/14/24 06:34 % Saturation 14 % (15-50) L 06/14/24 06:34 Unsat Iron Binding 220 ug/dL 06/14/24 06:34 Ferritin 142 ng/mL (10-250) 06/14/24 06:34 Total Bilirubin 0.3 mg/dL (0.0-1.0) 06/13/24 14:07 Direct Bilirubin 0.1 mg/dL (0.0-0.5) 06/13/24 14:07 AST 14 U/L (5-31) 06/13/24 14:07 ALT < 6 U/L (0-31) 06/13/24 14:07 Alkaline Phosphatase 53 U/L (39-117) 06/13/24 14:07 Ammonia 41 umol/L (13-55) 06/13/24 14:08 Lactate Dehydrogenase 169 U/L (122-220) 06/14/24 06:34 Total Creatine Kinase 17 U/L (26-140) L 06/13/24 14:07 Troponin I High Sens 14.8 ng/L (<3.5-17.0) D 06/13/24 14:07 C-Reactive Protein 1.24 mg/dL (< or = 0.50) H 06/13/24 14:07 Total Protein 6.9 g/dL (6.5-8.0) 06/13/24 14:07 B-Natriuretic Peptide 25 pg/mL (<100) 06/18/24 06:46 Albumin 3.5 g/dL (3.5-5.0) 06/13/24 14:07 Lipase 11 U/L (8-78) 06/13/24 14:07 Vitamin B12 1868 pg/mL (200-900) H 06/15/24 10:09 Folate 18.1 ng/mL (> or = 4.0) 06/15/24 10:09 Procalcitonin 0.04 ng/mL 06/13/24 14:07 TSH 1.65 uIU/mL (0.32-4.0) 06/13/24 14:07 Urine Color Yellow 06/13/24 16:41 Urine Appearance Clear 06/13/24 16:41 Urine pH 5.0 (5.0-9.0) 06/13/24 16:41 Ur Specific [place] 1.010 (1.005-1.025) 06/13/24 16:41 Urine Protein Negative mg/dL (Neg-Trace) 06/13/24 16:41 Urine Glucose (UA) Negative mg/dL (Negative) 06/13/24 16:41 Urine Ketones Negative mg/dL (Negative) 06/13/24 16:41 Urine Blood Trace (Negative) H 06/13/24 16:41 Urine Nitrite Negative (Negative) 06/13/24 16:41 Ur Leukocyte Esterase Negative (Negative) 06/13/24 16:41 Urine RBC 3-5 /HPF (0-2) H 06/13/24 16:41 Urine WBC 0-5 /HPF (0-5) 06/13/24 16:41 Ur Squamous Epith Cells 11-20 /HPF (0-2) 06/13/24 16:41 Urine Bacteria None Seen (None Seen) 06/13/24 16:41 Hyaline Casts 0-2 /LPF (0-2) 06/13/24 16:41 Urine Yeast Present 06/13/24 16:41 Stool Occult Blood NEGATIVE (NEGATIVE) 06/16/24 15:55 Influenza Type A (PCR) NEGATIVE (Negative) 06/13/24 14:18 Influenza Type B (PCR) NEGATIVE (Negative) 06/13/24 14:18 RSV RNA Qual (PCR) NEGATIVE (Negative) 06/13/24 14:18 SARS-CoV-2 RNA (RT-PCR) NEGATIVE (Negative) 06/13/24 14:18 Blood Type O Positive 06/15/24 07:09 Antibody Screen NEGATIVE 06/15/24 07:09 Impressions Chest X-Ray 06/13/24 14:00 IMPRESSION: Pulmonary edema and bilateral pleural effusions) left, worsened since prior examination. Less than status post extubation and NG tube removal. Electronically signed by: Goyo Chicas MD 06/13/2024 03:46 PM EST RP Head CT 06/13/24 14:00 IMPRESSION: No acute intracranial hemorrhage. Small vessel occlusive disease. Superimposed acute stroke/nonhemorrhagic ischemia cannot be excluded. Acute inflammatory versus infectious processes, both mastoids/petrous bones. Electronically signed by: Goyo Chicas MD 06/13/2024 02:58 PM EST RP Brain MRI 06/14/24 10:35 IMPRESSION: 1. 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 2. Unchanged chronic lacunar infarcts in right frausto radiata and right internal capsule. 3. No acute cerebral infarction is seen. 4. No evidence of space occupying mass lesion could be found. 5. No evidence of intracranial hemorrhage. 6. Empty sella syndrome. 7. Persistent extensive bilateral mastoid effusions. Electronically signed by: Jocelyn Sandhu MD 06/14/2024 02:34 PM EST RP Discharge Plan Discharge Anticipated Discharge Date/Time: 06/19/24 12:13 Patient Disposition: Home Health Service Discharge Diagnosis: CHF exacerbation aortic stenosis acute kidney injury iron deficiency anemia Referrals: [facility] [Provider Group] - 2 Weeks [facility] [Outside] - 3-5 Days (resume services) Cliff Walsh MD [Primary Care Provider] - 1 Week Discharge Medications: New furosemide 40 mg Tablet 40 mg PO BID@0900,1800 Qty: 60 0RF Protocol: Hold for SBP< HOLD for SBP < : 90 ferrous sulfate 324 mg (65 mg iron) Tablet,Delayed Release (Dr/Ec) 324 mg PO DAILY Qty: 30 0RF Continued loperamide 2 mg Capsule 2 mg PO Q4H PRN (Reason: Diarrhea) Rx Instructions: administer after each loose stool until symptoms controlled; do not exceed 8 mg per 24 hrs levetiracetam [Keppra] 250 mg Tablet 250 mg PO BID fluticasone propionate 220 mcg/actuation Hfa Aerosol Inhaler 1 puff INHALATION BID methimazole 5 mg tablet 2.5 mg PO DAILY albuterol sulfate [Ventolin HFA] 90 mcg/actuation HFA aerosol inhaler 2 puff inhalation Q6H PRN (Reason: wheezing) levalbuterol HCl 1.25 mg/3 mL solution for nebulization 1.25 mg inhalation Q4H PRN (Reason: wheezing) atorvastatin 80 mg tablet 80 mg PO BEDTIME albuterol sulfate 2.5 mg /3 mL (0.083 %) solution for nebulization 2.5 mg inhalation Q6H PRN (Reason: Shortness Of Breath Or Wheezing) glipizide 5 mg tablet extended release 24hr 5 mg PO DAILY clopidogrel 75 mg tablet 75 mg PO DAILY folic acid 400 mcg tablet 0.4 mg PO DAILY aspirin 81 mg tablet,delayed release (DR/EC) 81 mg PO DAILY acetaminophen 500 mg Tablet 500 mg PO BID cyanocobalamin (vitamin B-12) 500 mcg tablet 500 mcg PO DAILY oxybutynin chloride 5 mg tablet extended release 24hr 5 mg PO DAILY fluoxetine 20 mg capsule 20 mg PO DAILY zinc oxide 20 % Ointment 1 appl TOPICAL DAILY PRN (Reason: Wound Healing) Rx Instructions: apply to buttocks trazodone 100 mg tablet 100 mg PO BEDTIME pregabalin 150 mg capsule 150 mg PO TID cholecalciferol (vitamin D3) 25 mcg (1,000 unit) tablet 25 mcg PO DAILY metoprolol succinate 25 mg tablet extended release 24 hr 25 mg PO DAILY Discontinued furosemide 20 mg tablet 20 mg PO BID@0900,1700 Discharge Orders: Discharge Order (Routine); Ordered 06/19/24 Ordered By: Mc Davis Diet: Low salt diet Activity on Discharge: As tolerated Stand Alone Forms: Patient Portal Discharge page Print Language: Turkish Other Ambulatory Orders: Basic Metabolic Panel (Routine) Timeframe: 1 Week Facility: [facility] - Location: Laboratory Ordered By: Mc Davis Care Plan Goals: cardiac health Health Concerns: CHF exacerbation aortic stenosis acute kidney injury iron deficiency anemia Plan of Treatment: Low-sodium diet: less than 2000 mg of sodium daily. Weigh yourself daily and call your doctor if your weight goes up by more than 3 lb/day or 5 lb/week. Increase furosemide to 40 mg twice daily Recheck BMP [nonfasting lab] in 1 week Referral to [facility] Cardiology in 2 weeks Take iron as prescribed Please follow up with your primary care doctor within 1 week. Return to the hospital if you experience recurrent or worsening symptoms. Assessment: See Discharge Summary.
--- NOTE | 2024-06-19 17:57 | P.CDIM_ITS ---
PROVIDER RESPONSE TEXT: To clarify, the appropriate diagnosis supported by the clinical indicators: Pressure Injury Bilateral Buttocks Stage II: stage 2 QUERY TEXT: PHYSICIAN'S DOCUMENTATION REQUEST Date of Query: 06/17/2024 11:14 AM EST Patient Name: Rosi Hernández Admit Date: 06/14/2024 Dear Mc Davis MD, A review of the medical record indicates additional documentation may be needed. Please review below and update the documentation accordingly. 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 other Other (explain) Clinically unable to determine (explain) Thank you, Juliana Cartwright, CCS, CDIS Use of terms such as suspected, likely, concern for, or probable (associated with a specific diagnosi s that is being evaluated, monitored, or treated as if it exists) are acceptable and can be coded in the inpatient se tting, when documented at the time of discharge. Please use your independent medical judgment in providing your response. THIS QUERY IS PART OF THE PERMANENT MEDICAL RECORD
== END 2024-06-19 13:14 | disposition home health service (06) | DRG 291 ==
LOC: HO.ED 16:15 → HO.EDOVER 21:26 → HO.S3 06-14 07:44
PROVIDERS: Emergency Medicine; Admitting Provider Student in an Organized Health Care Education/Training Program; Emergency Provider Internal Medicine; PCP Internal Medicine; Visit Provider Family Medicine
DX: I11.0 Hypertensive heart disease with heart failure (principal); I50.33 Acute on chronic diastolic (congestive) heart failure; J96.21 Acute and chronic respiratory failure with hypoxia; J96.22 Acute and chronic respiratory failure with hypercapnia; N17.9 Acute kidney failure, unspecified; I69.354 Hemiplegia and hemiparesis following cerebral infarction affecting left non-dominant side; E11.42 Type 2 diabetes mellitus with diabetic polyneuropathy; D50.9 Iron deficiency anemia, unspecified; F03.90 Unspecified dementia, unspecified severity, without behavioral disturbance, psychotic disturbance, mood disturbance, and anxiety; G40.909 Epilepsy, unspecified, not intractable, without status epilepticus; J44.9 Chronic obstructive pulmonary disease, unspecified; I69.392 Facial weakness following cerebral infarction; E78.5 Hyperlipidemia, unspecified; I35.0 Nonrheumatic aortic (valve) stenosis; E05.90 Thyrotoxicosis, unspecified without thyrotoxic crisis or storm; L89.322 Pressure ulcer of left buttock, stage 2; L89.312 Pressure ulcer of right buttock, stage 2; Z99.81 Dependence on supplemental oxygen; Z20.811 Contact with and (suspected) exposure to meningococcus; Z74.01 Bed confinement status; Z79.02 Long term (current) use of antithrombotics/antiplatelets; Z79.84 Long term (current) use of oral hypoglycemic drugs; Z79.899 Other long term (current) drug therapy
CPT/HCPCS: 0241U; 36415; 70450; 70551; 71045; 80048; 80076; 81001; 82140; 82272; 82550; 82607; 82728; 82746; 82803; 82947; 83540; 83605; 83615; 83690; 83735; 83880; 84145; 84443; 84484; 85025; 85027; 85045; 86140; 86850; 86900; 86901; 87040; 92526; 92610; 93005; 93306; 94640; 99285; C1758; J1120; J1650; J1940; J1956; J2919; J3475; Q9957

== ENCOUNTER → 2024-06-13 13:59 | Outpatient (BNV) | payer MEDICARE, MEDICAID, SELFPAY | PROVIDERS: Admitting Provider Student in an Organized Health Care Education/Training Program; Emergency Provider Internal Medicine; PCP Internal Medicine; Visit Provider Internal Medicine Cardiovascular Disease | DX: R41.82 Altered mental status, unspecified (principal) | CPT/HCPCS: 93010 ==

== ENCOUNTER → 2024-06-13 14:00 | Outpatient (BNV) | payer MEDICARE, MEDICAID, SELFPAY | PROVIDERS: Emergency Provider Emergency Medicine; PCP Internal Medicine; Visit Provider Radiology Diagnostic Radiology | DX: R41.82 Altered mental status, unspecified (principal); M62.81 Muscle weakness (generalized) | CPT/HCPCS: 70450; 71045 ==

== ENCOUNTER 2024-06-13 20:09 | Outpatient (BNV) | payer MEDICARE, MEDICAID, SELFPAY | END 2024-06-17 07:00 | PROVIDERS: Admitting Provider Student in an Organized Health Care Education/Training Program; Emergency Provider Internal Medicine; PCP Internal Medicine; Visit Provider Internal Medicine | DX: I50.9 Heart failure, unspecified (principal) | CPT/HCPCS: 93306 ==

== ENCOUNTER → 2024-06-13 20:09 | Outpatient (BNV) | payer MEDICARE, MEDICAID, SELFPAY | PROVIDERS: Admitting Provider Student in an Organized Health Care Education/Training Program; Emergency Provider Internal Medicine; PCP Internal Medicine; Visit Provider Student in an Organized Health Care Education/Training Program | DX: N17.9 Acute kidney failure, unspecified (principal); I50.33 Acute on chronic diastolic (congestive) heart failure; I35.0 Nonrheumatic aortic (valve) stenosis; D50.9 Iron deficiency anemia, unspecified | CPT/HCPCS: 99223; 99232; 99239; G0180 ==

== ENCOUNTER 2024-11-07 11:03 | Inpatient (IN) | payer MEDICARE, MEDICAID, SELFPAY ==
[2024-11-07] VITALS (24 sets, daily range): BP systolic 86–153; BP diastolic 34–77; PULSE 43–97; RESP 15–27; TEMP 36.3–39.8; O2SAT 90–99; BMI 34.0; BMI 32.8; BMI 31.1
--- NOTE | ~2024-11-07 | XR_ITS ---
EXAMINATION: XR CHEST CLINICAL INFORMATION: Sepsis COMPARISON: June 13, 2024. TECHNIQUE: Frontal view of the chest was obtained. FINDINGS: Poor inspiration. The head overlaps the right supraclavicular notch. No gross consolidation, pleural effusion or pneumothorax. Cardiomediastinal silhouette margins are indistinct. Multilevel thoracic spondylosis. Sternal wires. Osteopenia versus osteoporosis. XR/XR chest 1V IMPRESSION: Probable mild interstitial lung edema. Electronically signed by: Goyo Chicas MD 11/07/2024 12:32 PM EDT RP
--- NOTE | ~2024-11-07 | CT_ITS ---
EXAMINATION: CT HEAD WITHOUT CONTRAST CLINICAL INFORMATION: Change mental status COMPARISON: June 13, 2024. Correlated to MRI dated June 14, 2024. TECHNIQUE: Contiguous axial imaging was performed from the skull base to vertex without intravenous administration of contrast. This CT examination was performed using dose optimization techniques as appropriate, variously including the following: *Automated exposure control *Adjustment of mA and/or kV according to patient size (this includes techniques or standardized protocols for targeted exams where dose is matched to indication/reason for exam; i.e. extremities or head) *Use of iterative reconstruction technique DLP: 763 mGy-cm FINDINGS: Inadequate position of the CT scanner. No acute intracranial hemorrhage, mass effect, midline shift, hydrocephalus or herniation. Lundy-white matter differentiation is normal. Bilateral multifocal patchy and confluent deep periventricular white matter hypodensities involving centrum semiovale and frausto radiata. Focal encephalomalacia secondary to prior vascular insult involving the right basal ganglia frausto radiata resulting in well aerated degeneration. Posterior cranial fossa contents demonstrated no acute intracranial hemorrhage or mass effect. Sellar/suprasellar region demonstrated no gross masses. 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 Fluid levels in the mastoid air cells, right greater than the left side. F level in the left frontal sinus and left frontal ethmoid recesses. Mucosal thickening, paranasal sinuses. Edentulous. Focal calcification in the anterior left aspect of the left eyeball. CT/CT head/brain wo IV con IMPRESSION: Small vessel occlusive disease. No acute stroke/nonhemorrhagic ischemia. Effusions, mastoid air cells. Electronically signed by: Goyo Chicas MD 11/07/2024 03:14 PM EDT
--- NOTE | ~2024-11-07 | CT_ITS ---
EXAMINATION: CT CHEST WITHOUT IV CONTRAST INDICATION: Hypoxia, sepsis, R/O atypical vs multilobar pneumonia COMPARISON: Comparison is made with the prior examination dated 06/02/2024. TECHNIQUE: Helical CT scan of the chest was performed without intravenous contrast. Coronal and sagittal reformatted images were generated and reviewed. This CT exam was performed with one or more of the following dose reduction techniques: automated exposure control, adjustment of the mA and/or kV according to patient size, use of iterative reconstruction technique. DLP: 440 mGy-cm CHEST: THYROID: Again seen is nodularity of the thyroid gland. LUNGS: Multiple nodules are again seen in the right upper lobe including a 1.5 cm mass anteriorly (series 13, image 29), a 0.9 cm nodule posteriorly (series 13, image 29), and a 9 mm nodule superiorly (series 13, image 28). Additional punctate nodules are seen bilaterally. Patchy opacities are noted at both lung bases which could represent atelectasis or pneumonia. MEDIASTINUM: There is an enlarged precarinal lymph node measuring 2.2 cm in size. NAIN: Evaluation of the hilar regions is limited by lack of intravenous contrast material. CARDIOVASCULATURE: The heart is enlarged. There is no pericardial effusion. The thoracic aorta demonstrates severe atherosclerotic calcification, but is normal in caliber. DEGREE OF CORONARY CALCIFICATION: severe, status post CABG. PLEURA: There is no pleural effusion. No pneumothorax. MAIN AIRWAYS: The mainstem bronchi and proximal branches are patent. AXILLA: There is no axillary lymphadenopathy. BONES AND SOFT TISSUES: There is an ellipsoid fluid collection in the left breast without change which may represent a seroma or the residua of a collapsed implant. There is degenerative disc disease of the spine. UPPER ABDOMEN: The visualized portions of the liver, spleen, and adrenals have an unremarkable unenhanced appearance. CT/CT chest wo IV con IMPRESSION: 1. Multiple right upper lobe masses as seen previously. 2. Patchy opacities at both lung bases which could represent atelectasis or pneumonia. 3. 2.2 cm precarinal lymph node. Electronically signed by: Nelson Hodges MD 11/07/2024 03:15 PM EDT RP
--- NOTE | 2024-11-07 11:29 | ECG_ITS ---
Test Reason : sepsis Blood Pressure : */* mmHG Vent. Rate : 88 BPM Atrial Rate : * BPM P-R Int : * ms QRS Dur : 66 ms QT Int : 328 ms P-R-T Axes : * 13 33 degrees QTcB Int : 396 ms Normal sinus rhythm Possible Anterior infarct , age undetermined , ? due to lead misplacement. Abnormal ECG When compared with ECG of 13-Jun-2024 18:25, Repeat EKG Referred By: Chaitanya Ponce Electronically Signed By: DAVID GOMES MD
--- NOTE | 2024-11-07 11:38 | ED.GENADULT ---
HPI - General Adult General Chief complaint: Dyspnea Stated complaint: AMS, SOB 96% ,GIVING DUONEB PER EMS Time Seen by Provider: 11/07/24 11:29 Source: patient, family (Caregiver), EMS and old records reviewed Mode of arrival: EMS Limitations: no limitations History of Present Illness ED Provider: DR. Ponce HPI narrative: 78-year-old female with PMH significant for acute hypercapnic respiratory failure, COPD, on supplemental oxygen at home 2 L, CHF, history of CVA with left-sided weakness, seizure disorder, dm 2, HTN, HLD, dementia, patient is mostly bed/recliner ridden require help with most of daily activities brought in by ambulance today for change of her mental status since this morning, and decreased O2 sat despite using her baseline 2 L oxygen. In the ED patient is a poor historian able to answer some questions by yes or no otherwise history was obtained from caregiver who is familiar with the patient condition at the bedside. Related Data Home Medications ?Medication ?Instructions ?Recorded ?Confirmed acetaminophen 500 mg tablet 500 mg PO BID 08/02/23 06/13/24 albuterol sulfate 2.5 mg/3 mL 2.5 mg inhalation Q6H PRN 08/02/23 06/13/24 (0.083 %) solution for nebulization Shortness Of Breath Or Wheezing aspirin 81 mg tablet,delayed 81 mg PO DAILY 08/02/23 06/03/24 release atorvastatin 80 mg tablet 80 mg PO BEDTIME 08/02/23 06/13/24 cholecalciferol (vitamin D3) 25 25 mcg PO DAILY 08/02/23 06/13/24 mcg (1,000 unit) tablet clopidogrel 75 mg tablet 75 mg PO DAILY 08/02/23 06/14/24 cyanocobalamin (vitamin B-12) 500 500 mcg PO DAILY 08/02/23 06/13/24 mcg tablet fluoxetine 20 mg capsule 20 mg PO DAILY 08/02/23 06/13/24 folic acid 400 mcg tablet 0.4 mg PO DAILY 08/02/23 06/13/24 glipizide 5 mg tablet, extended 5 mg PO DAILY 08/02/23 06/14/24 release 24 hr metoprolol succinate 25 mg 25 mg PO DAILY 08/02/23 06/13/24 tablet,extended release 24 hr oxybutynin chloride 5 mg 5 mg PO DAILY 08/02/23 06/13/24 tablet,extended release 24 hr pregabalin 150 mg capsule 150 mg PO TID 08/02/23 06/13/24 trazodone 100 mg tablet 100 mg PO BEDTIME 08/02/23 06/13/24 zinc oxide 20 % topical ointment 1 appl topical DAILY PRN Wound 08/02/23 06/13/24 Healing fluticasone propionate 220 1 puff inhalation BID 09/10/23 06/13/24 mcg/actuation HFA aerosol inhaler levetiracetam 250 mg tablet 250 mg PO BID 09/10/23 06/13/24 (Keppra) loperamide 2 mg capsule 2 mg PO Q4H PRN Diarrhea 09/10/23 06/13/24 albuterol sulfate 90 mcg/actuation 2 puff inhalation Q6H PRN wheezing 04/18/24 06/13/24 aerosol inhaler (Ventolin HFA) methimazole 5 mg tablet 2.5 mg PO DAILY 04/18/24 06/13/24 levalbuterol HCl 1.25 mg/3 mL 1.25 mg inhalation Q4H PRN wheezing 06/14/24 06/14/24 solution for nebulization Previous Rx's ?Medication ?Instructions ?Recorded ferrous sulfate 324 mg (65 mg 324 mg PO DAILY #30 tabs 06/19/24 iron) tablet,delayed release furosemide 40 mg tablet 40 mg PO BID@0900,1800 #60 tabs 06/19/24 Allergies Allergy/AdvReac Type Severity Reaction Status Date / Time Penicillins Allergy Unknown Verified 11/07/24 11:33 piroxicam Allergy Unknown Verified 11/07/24 11:33 shrimp Allergy Hives Verified 11/07/24 11:33 Sulfa (Sulfonamide Allergy Unknown Verified 11/07/24 11:33 Antibiotics) Review of Systems Review of Systems: Yes Unobtainable due to mental status PMFSH Past Medical History Medical History Dementia Seizure COPD (chronic obstructive pulmonary disease) Non-insulin dependent type 2 diabetes mellitus Peripheral neuropathy HLD (hyperlipidemia) CVA (cerebral vascular accident) Heart failure, unspecified Social History Social History Household Members: Other Housing: Other Housing Other:: detention Do you presently have visiting nurse or other home services: No Unable to assess alcohol history related to: Unknown Alcohol intake: former Comment: non ambulatory pt Patient Tobacco Use Status: Never used Tobacco Advance Directives: Yes Advance Directives on File: Yes Advance Directives Date on File: 09/15/23 Do you have a plan to hurt others: No Plan service: No Physical Exam ED Vital Signs: Vital Signs - 24 hr 11/07/24 11:29 11/07/24 12:16 11/07/24 12:30 Temperature 103.6 F H 103.1 F H 103.6 F H Pulse Rate 91 97 90 Respiratory Rate 22 H 18 27 H Blood Pressure 136/61 120/72 110/77 Pulse Oximetry 91 L 93 90 L Oxygen Delivery Method Nasal Cannula Nasal Cannula Room Air Oxygen Flow Rate 2 11/07/24 13:36 11/07/24 13:46 11/07/24 14:06 Temperature 101.8 F H 101.8 F H 101.7 F H Pulse Rate 87 77 79 Respiratory Rate 19 22 H 22 H Blood Pressure 94/40 L 90/43 L 96/44 L Pulse Oximetry 95 95 93 Oxygen Delivery Method Nasal Cannula Nasal Cannula Nasal Cannula Oxygen Flow Rate 2 2 11/07/24 14:59 11/07/24 15:36 11/07/24 15:56 Temperature 100.9 F H 100.0 F 99.7 F Pulse Rate 78 68 65 Respiratory Rate 20 18 18 Blood Pressure 92/42 L 94/39 L 103/34 L Pulse Oximetry 95 97 97 Oxygen Delivery Method Nasal Cannula Nasal Cannula Nasal Cannula Oxygen Flow Rate 2 2 2 11/07/24 16:26 Temperature 99.3 F Pulse Rate 65 Respiratory Rate 18 Blood Pressure 91/40 L Pulse Oximetry 96 Oxygen Delivery Method Room Air Oxygen Flow Rate BMI result Body Mass Index 34.0 Vital signs have been reviewed and appear to be correct. Blood pressure elevated. Heart rate elevated. Respiratory rate elevated. Febrile. Oxygen saturation normal. Appearance: Alert. Unable to get history secondary to baseline confusion/dementia, No acute distress. Head: Normal external exam. Normocephalic. Atraumatic. No Garcia signs noted. No raccoon eyes noted Eyes: PERRLA. EOMI. Conjunctiva and sclera normal. Eyelids normal. ENT: TM's Normal. Pharynx normal. Uvula midline. Moist mucous membranes. No trismus noted. No drooling noted. No muffled voice noted. Neck: Normal inspection. Neck supple. FROM. No adenopathy. Thyroid Normal. No meningeal signs. No neck mass noted. CVS: Normal heart rate and rhythm. Heart sound normal. No murmurs noted. Pulses normal throughout. Respiratory: No respiratory distress. Painless inspiration. Breath sounds normal. No wheezes/rales/rhonchi noted. Chest nontender. No accessory muscle usage noted or decreased air movement noted. Abdomen: Soft and nontender. Bowel sounds normal in all 4 quadrants. No distention noted. No organomegaly noted. No visible injury noted. Back: No CVA tenderness. Full range of motion noted. Skin: Skin warm and dry. Normal skin color. Normal skin turgor. No rashes/lesions/lacerations noted. Extremities: No lower extremity edema. Extremities exhibit normal range of motion. Extremities nontender. Neuro: Alert, disoriented x4 Pre-existing left-sided weakness secondary to old CVA. Course Reevaluation(s) Reevaluation #1: Patient started to become hypotensive, received ceftriaxone and doxycycline, CT of the chest is confirming pneumonia, patient is getting, 2,449 mL LR, with transient improvement of blood pressure and MAP. Time: 14:30 Reevaluation #2: FOCUSED EXAM: Patient looks better than initial presentation, blood pressure still fluctuate, patient was started on Levophed, ICU consultation was obtained ( Dr. Loyola). Time: 16:57 Medications Administered Discontinued Medications Generic Name Dose Route Start Last Admin Trade Name Melitonq PRN Reason Stop Dose Admin Acetaminophen 650 mg 11/07/24 11:36 11/07/24 12:04 Acetaminophen Supp 650 Mg Supp.Rect MI 11/07/24 11:37 650 mg ONCE ONE Administration Acetaminophen 975 mg 11/07/24 12:49 11/07/24 13:00 Acetaminophen 325 Mg Tablet PO 11/07/24 12:50 975 mg ONCE ONE Administration Ceftriaxone Sodium 1 gm 11/07/24 11:36 11/07/24 12:04 Ceftriaxone Sodium 1 Gm Vial IVPUSH 11/07/24 11:37 1 gm ONCE ONE Administration Lactated Ringer's 1,000 mls @ 999 mls/hr 11/07/24 13:00 11/07/24 14:01 Lr IV 11/07/24 14:00 Infused .Q1H1M MARC Infusion Doxycycline Hyclate 100 mg/ 250 mls @ 166.67 mls/hr 11/07/24 12:49 11/07/24 14:31 Sodium Chloride IV 11/07/24 14:18 Infused ONCE ONE Infusion Lactated Ringer's 2,449.41 mls @ 2,449.41 mls/hr 11/07/24 14:29 11/07/24 15:50 Lr 30 ml/kg infuse over 1 hr (2449.41 ml) 11/07/24 15:28 Infused IV Infusion .Q1H ONE Medical Decision Making Differential Diagnosis Differential Diagnoses: The differential diagnosis associated with the presentation includes (Septic shock, UTI, pneumonia, electrolyte derangement, severe anemia, hypotension, dehydration.) Admission/Observation Consideration of admission/observation: Escalation of care including admission/observation considered Consult Healthcare Provider Management of the patient was discussed with: Director Foundation (Dr. Loyola) Lab Data MDM Lab Attestation statement: I reviewed the patient's lab results. 11/07/24 11:54 11/07/24 11:55 Labs: Lab Results 11/07/24 11/07/24 11/07/24 Range/Units 11:53 11:54 11:55 WBC 13.1 H (4.8-10.8) X10*3/uL RBC 4.01 L (4.20-5.50) X10*6/uL Hgb 10.5 L (12.0-16.0) g/dl Hct 33.2 L (37.0-47.0) % MCV 82.8 (80.0-98.0) fL MCH 26.2 L (27.0-33.0) pg MCHC 31.6 (31.0-35.0) g/dl RDW 16.7 H (11.0-16.0) % Plt Count 143 L (160-400) X10*3/uL MPV 10.9 (9.4-12.3) fL Immature Gran % (Auto) 0.5 H (0.0-0.4) % Neut % (Auto) 88.2 H (45-73) % Lymph % (Auto) 5.8 L (20-40) % [place] % (Auto) 5.1 (2-11) % Eos % (Auto) 0.2 (0-4) % Baso % (Auto) 0.2 (0-2) % Lymph # (Auto) 0.8 L (1.2-4.9) X10*3/uL [place] # (Auto) 0.7 (0.1-1.2) X10*3/uL Eos # (Auto) 0.0 (0.0-0.4) X10*3/uL Baso # (Auto) 0.0 (0.0-0.2) X10*3/uL Abs Immat Gran (auto) 0.06 H (0.00-0.03) X10*3/uL Absolute Neuts (auto) 11.6 H (2.0-8.3) x10*3/uL Absolute Nucleated RBC 0.000 (0.0-0.012) X10*3/uL Nucleated RBC % (auto) 0.0 (0.0-0.2) /100WBC PT 13.0 H (10.9-12.4) SEC INR 1.1 (0.9-1.1) VBG pH (7.32-7.43) VBG pCO2 mmHg VBG pO2 mmHg VBG HCO3 (22-26) mmol/L VBG O2 Saturation % VBG Base Excess mmol/L Sodium 144 (135-145) mmol/L Potassium 4.5 (3.3-5.1) mmol/L Chloride 98 (96-108) mmol/L Carbon Dioxide 38 H (22-29) mmol/L Anion Gap 13 (12-20) BUN 30 H (9-16) mg/dL Creatinine 1.35 (0.5-1.4) mg/dL Estim Creat Clear Calc 33.2 Estimated GFR 38 Random Glucose 158 H (60-115) mg/dL Lactic Acid 2.5 H* (0.5-2.0) mmol/L Lactic Acid F/U @ 2Hr (0.5-2.0) mmol/L Calcium 9.6 D (8.4-10.2) mg/dL Total Bilirubin 0.3 (0.0-1.0) mg/dL Direct Bilirubin 0.1 (0.0-0.5) mg/dL AST 16 (5-31) U/L ALT < 6 (0-31) U/L Alkaline Phosphatase 51 (39-117) U/L Troponin I High Sens 6.3 D (<3.5-17.0) ng/L B-Natriuretic Peptide 87 (<100) pg/mL Total Protein 7.6 (6.5-8.0) g/dL Albumin 3.6 (3.5-5.0) g/dL Lipase 21 (8-78) U/L Urine Color Urine Appearance Urine pH (5.0-9.0) Ur Specific [place] (1.005-1.025) Urine Protein (Neg-Trace) mg/dL Urine Glucose (UA) (Negative) mg/dL Urine Ketones (Negative) mg/dL Urine Blood (Negative) Urine Nitrite (Negative) Ur Leukocyte Esterase (Negative) Urine RBC (0-2) /HPF Urine WBC (0-5) /HPF Ur Squamous Epith Cells (0-2) /HPF Ur Transition Epith Cell Urine Bacteria (None Seen) Hyaline Casts (0-2) /LPF Urine Yeast Influenza Type A (PCR) NEGATIVE (Negative) Influenza Type B (PCR) NEGATIVE (Negative) RSV RNA Qual (PCR) NEGATIVE (Negative) SARS-CoV-2 RNA (RT-PCR) NEGATIVE (Negative) 11/07/24 11/07/24 11/07/24 Range/Units 12:06 12:14 14:26 WBC (4.8-10.8) X10*3/uL RBC (4.20-5.50) X10*6/uL Hgb (12.0-16.0) g/dl Hct (37.0-47.0) % MCV (80.0-98.0) fL MCH (27.0-33.0) pg MCHC (31.0-35.0) g/dl RDW (11.0-16.0) % Plt Count (160-400) X10*3/uL MPV (9.4-12.3) fL Immature Gran % (Auto) (0.0-0.4) % Neut % (Auto) (45-73) % Lymph % (Auto) (20-40) % [place] % (Auto) (2-11) % Eos % (Auto) (0-4) % Baso % (Auto) (0-2) % Lymph # (Auto) (1.2-4.9) X10*3/uL [place] # (Auto) (0.1-1.2) X10*3/uL Eos # (Auto) (0.0-0.4) X10*3/uL Baso # (Auto) (0.0-0.2) X10*3/uL Abs Immat Gran (auto) (0.00-0.03) X10*3/uL Absolute Neuts (auto) (2.0-8.3) x10*3/uL Absolute Nucleated RBC (0.0-0.012) X10*3/uL Nucleated RBC % (auto) (0.0-0.2) /100WBC PT (10.9-12.4) SEC INR (0.9-1.1) VBG pH 7.38 (7.32-7.43) VBG pCO2 77 mmHg VBG pO2 29 mmHg VBG HCO3 46 H (22-26) mmol/L VBG O2 Saturation 40.0 % VBG Base Excess 17.8 mmol/L Sodium (135-145) mmol/L Potassium (3.3-5.1) mmol/L Chloride (96-108) mmol/L Carbon Dioxide (22-29) mmol/L Anion Gap (12-20) BUN (9-16) mg/dL Creatinine (0.5-1.4) mg/dL Estim Creat Clear Calc Estimated GFR Random Glucose (60-115) mg/dL Lactic Acid (0.5-2.0) mmol/L Lactic Acid F/U @ 2Hr 1.8 (0.5-2.0) mmol/L Calcium (8.4-10.2) mg/dL Total Bilirubin (0.0-1.0) mg/dL Direct Bilirubin (0.0-0.5) mg/dL AST (5-31) U/L ALT (0-31) U/L Alkaline Phosphatase (39-117) U/L Troponin I High Sens (<3.5-17.0) ng/L B-Natriuretic Peptide (<100) pg/mL Total Protein (6.5-8.0) g/dL Albumin (3.5-5.0) g/dL Lipase (8-78) U/L Urine Color Yellow Urine Appearance Turbid Urine pH 6.0 (5.0-9.0) Ur Specific [place] 1.010 (1.005-1.025) Urine Protein Negative (Neg-Trace) mg/dL Urine Glucose (UA) Negative (Negative) mg/dL Urine Ketones Negative (Negative) mg/dL Urine Blood Small (1+) H (Negative) Urine Nitrite Negative (Negative) Ur Leukocyte Esterase Large (3+) H (Negative) Urine RBC 3-5 H (0-2) /HPF Urine WBC 21-50 (0-5) /HPF Ur Squamous Epith Cells 6-10 (0-2) /HPF Ur Transition Epith Cell Present Urine Bacteria 2+ (None Seen) Hyaline Casts 3-5 (0-2) /LPF Urine Yeast Present Influenza Type A (PCR) (Negative) Influenza Type B (PCR) (Negative) RSV RNA Qual (PCR) (Negative) SARS-CoV-2 RNA (RT-PCR) (Negative) Independent Interpretation I performed an independent interpretation of an: CT Scan (Head/chest:Small vessel occlusive disease. No acute stroke/nonhemorrhagic ischemia. Effusions, mastoid air cells/1. Multiple right upper lobe masses as seen previously. 2. Patchy opacities at both lung bases which could represent atelectasis or pneumonia. 3. 2.2 cm precarinal lymph node. ) Radiology Impression Discussion of test interpretation with radiology: I have reviewed the radiologist's reading. Discharge Plan Discharge Clinical Impression: Septic shock, Pneumonia Patient Disposition: Admitted As Inpatient Prescriptions: No Action loperamide 2 mg Capsule 2 mg PO Q4H PRN (Reason: Diarrhea) Rx Instructions: administer after each loose stool until symptoms controlled; do not exceed 8 mg per 24 hrs levetiracetam [Keppra] 250 mg Tablet 250 mg PO BID fluticasone propionate 220 mcg/actuation Hfa Aerosol Inhaler 1 puff INHALATION BID methimazole 5 mg tablet 2.5 mg PO DAILY albuterol sulfate [Ventolin HFA] 90 mcg/actuation HFA aerosol inhaler 2 puff inhalation Q6H PRN (Reason: wheezing) levalbuterol HCl 1.25 mg/3 mL solution for nebulization 1.25 mg inhalation Q4H PRN (Reason: wheezing) furosemide 40 mg Tablet 40 mg PO BID@0900,1800 Qty: 60 0RF Protocol: Hold for SBP< HOLD for SBP < : 90 ferrous sulfate 324 mg (65 mg iron) Tablet,Delayed Release (Dr/Ec) 324 mg PO DAILY Qty: 30 0RF atorvastatin 80 mg tablet 80 mg PO BEDTIME albuterol sulfate 2.5 mg /3 mL (0.083 %) solution for nebulization 2.5 mg inhalation Q6H PRN (Reason: Shortness Of Breath Or Wheezing) glipizide 5 mg tablet extended release 24hr 5 mg PO DAILY clopidogrel 75 mg tablet 75 mg PO DAILY folic acid 400 mcg tablet 0.4 mg PO DAILY aspirin 81 mg tablet,delayed release (DR/EC) 81 mg PO DAILY acetaminophen 500 mg Tablet 500 mg PO BID cyanocobalamin (vitamin B-12) 500 mcg tablet 500 mcg PO DAILY oxybutynin chloride 5 mg tablet extended release 24hr 5 mg PO DAILY fluoxetine 20 mg capsule 20 mg PO DAILY zinc oxide 20 % Ointment 1 appl TOPICAL DAILY PRN (Reason: Wound Healing) Rx Instructions: apply to buttocks trazodone 100 mg tablet 100 mg PO BEDTIME pregabalin 150 mg capsule 150 mg PO TID cholecalciferol (vitamin D3) 25 mcg (1,000 unit) tablet 25 mcg PO DAILY metoprolol succinate 25 mg tablet extended release 24 hr 25 mg PO DAILY Print Language: Indian
--- NOTE | 2024-11-07 11:48 | PC.NURSE ---
patient difficult IV stick, attempting US guided IV at this time
--- NOTE | 2024-11-07 12:00 | PC.NURSE ---
US guided 20IV in right AC, labs/cultures obtained and sent.
[2024-11-07 12:03] LABS: MANUAL DIFF FLAG NO
[2024-11-07] MEDS: cefTRIAXone sodium 1 GM VIAL IVPUSH (12:04)
[2024-11-07] MEDS: Acetaminophen Supp 650 MG SUPP.RECT PR (12:04)
[2024-11-07 12:08] LABS: Basophils Percent Auto 0.2 % (0-2); Eosinophils Percent Auto 0.2 % (0-4); Hematocrit 33.2 % (37.0-47.0); Hemoglobin 10.5 g/dl (12.0-16.0); Imm Gran Abs Auto 0.06 X10*3/uL (0.00-0.03); Imm Gran Pct Auto 0.5 % (0.0-0.4); Lymphocytes Absolute Auto 0.8 X10*3/uL (1.2-4.9); Lymphocytes Percent Auto 5.8 % (20-40); Mean Corpuscular HGB Conc 31.6 g/dl (31.0-35.0); Mean Corpuscular Hemoglobin 26.2 pg (27.0-33.0); Mean Corpuscular Volume 82.8 fL (80.0-98.0); Mean Platelet Volume 10.9 fL (9.4-12.3); Monocytes Absolute Auto 0.7 X10*3/uL (0.1-1.2); Monocytes Percent Auto 5.1 % (2-11); Neutrophils Absolute Auto 11.6 x10*3/uL (2.0-8.3); Neutrophils Percent Auto 88.2 % (45-73); Platelet Count 143 X10*3/uL (160-400); Red Blood Count 4.01 X10*6/uL (4.20-5.50); Red Cell Distribution Width 16.7 % (11.0-16.0); White Blood Count 13.1 X10*3/uL (4.8-10.8)
[2024-11-07 12:09] LABS: VBG Base Excess 17.8 mmol/L; VBG HCO3 46 mmol/L (22-26); VBG pCO2 77 mmHg; VBG pH 7.38 (7.32-7.43); VBG pO2 29 mmHg
[2024-11-07 12:10] LABS: INTERNATIONAL NORM RATIO 1.1 (0.9-1.1)
[2024-11-07 12:21] LABS: Lactic Acid 2.5 mmol/L (0.5-2.0)
[2024-11-07 12:21] LABS: Appearance Urine Turbid; Color Urine Yellow; Glucose Urine UA Negative (Negative); Leukocyte Esterase Urine Large (3+) (Negative); Nitrite Urine Negative (Negative); UMIC TRIGGER UACC YES; Urine Blood Small (1+) (Negative); Urine Ketones Negative (Negative); Urine Protein Negative (Neg-Trace)
[2024-11-07 12:24] LABS: B Type Natriuretic Peptide 87 pg/mL (<100)
[2024-11-07 12:24] LABS: Troponin-I High Sensitivity 6.3 ng/L (<3.5-17.0)
[2024-11-07 12:29] LABS: Venous Blood Gas Refer to POC result
[2024-11-07 12:30] LABS: Alanine Aminotransferase < 6 U/L (0-31); Albumin Level 3.6 g/dL (3.5-5.0); Alkaline Phosphatase 51 U/L (39-117); Anion Gap 13 (12-20); Aspartate Amino Transferase 16 U/L (5-31); Bilirubin Direct 0.1 mg/dL (0.0-0.5); Bilirubin Total 0.3 mg/dL (0.0-1.0); Blood Urea Nitrogen 30 mg/dL (9-16); Calcium 9.6 mg/dL (8.4-10.2); Carbon Dioxide 38 mmol/L (22-29); Chloride 98 mmol/L (96-108); Creatinine Clr Calc Pharmacy 33.2; Estimated Glomerular Filt Rate 38; Glucose Random 158 mg/dL (60-115); Lipase 21 U/L (8-78); Potassium 4.5 mmol/L (3.3-5.1); Sodium 144 mmol/L (135-145); Total Protein 7.6 g/dL (6.5-8.0)
[2024-11-07 12:34] LABS: Bacteria Urine 2+ (None Seen); Transitional Epi Cells Urine Present; UACC Culture Trigger YES; WBC Urine 21-50 /HPF (0-5)
[2024-11-07 12:41] LABS: Influenza A PCR NEGATIVE (Negative); Influenza B PCR NEGATIVE (Negative); Resp Syncy Virus RNA Qual PCR NEGATIVE (Negative); SARS COV2 PCR INHOUSE NEGATIVE (Negative)
[2024-11-07] MEDS: Acetaminophen 325 MG TABLET 975 MG PO (13:00)
[2024-11-07] MEDS: Lactated Ringers 1,000 ML 999 ML IV (13:00)
[2024-11-07] MEDS: Doxycycline Hyclate 100 MG in 0.9 % Sodium Chloride 250 ML 166.67 MG IV (13:01)
--- NOTE | 2024-11-07 13:14 | PC.NURSE ---
patient medicated per the MAR, takes pills whole with water. resting quietly in room at this time
[2024-11-07 14:01] LABS: Reflex Lactate? Lactic Acid Added
[2024-11-07 14:47] LABS: ~Lactic Acid-LAB USE ONLY 1.8 mmol/L (0.5-2.0)
[2024-11-07] MEDS: LACTATED RINGERS 2449.41 ML IV (14:50)
--- NOTE | 2024-11-07 17:31 | PC.NURSE ---
additional IV acquired, 20IV in right hand
[2024-11-07] MEDS: Norepinephrine Bitartrate/D5W 8 MG/250 ML PLAST..BAG 7.38 MG IVCONT (17:34)
--- NOTE | 2024-11-07 17:37 | P.HPCC_ITS ---
History of Present Illness Date of Service: 11/07/24 Chief Complaint: Altered sensorium Rosi Hernández is a 78-year-old lady with multiple significant comorbidities at baseline, bed-bound/recliner bound with past medical history of CVA with left- sided hemiparesis, COPD on home oxygen, CHF, hypertension, diabetes mellitus, dementia, seizure disorder was brought into the ED due to altered mental status and slight increase in oxygen requirement. In the ED patient was found to be hypotensive, treated with sepsis bolus fluids despite which her systolic blood pressures remains in 80 systolics so MICU was consulted for admission. Labs suggestive of leukocytosis with WBC count 13,000, initial lactate 2.5 which improved down to normal after sepsis bolus fluids, urinalysis showing 20-50 WBCs with leukocyte esterase positive and nitrate negative, CT chest showing mild bilateral lung infiltrates. Bedside echo showing close to normal LV systolic function, thickened mitral and aortic torres, IVC 1.4 cm with mild variation with breathing. Review of Systems 2 Review of Systems: Unable to obtain due to poor mental status PMFSH Past Medical History Medical History Dementia Seizure COPD (chronic obstructive pulmonary disease) Non-insulin dependent type 2 diabetes mellitus Peripheral neuropathy HLD (hyperlipidemia) CVA (cerebral vascular accident) Heart failure, unspecified Social History Social History Household Members: Other Housing: Other Housing Other:: [facility] Do you presently have visiting nurse or other home services: No Unable to assess alcohol history related to: Unknown Alcohol intake: former Comment: non ambulatory pt Patient Tobacco Use Status: Never used Tobacco Advance Directives: Yes Advance Directives on File: Yes Advance Directives Date on File: 09/15/23 Do you have a plan to hurt others: No Plan service: No Meds Allergies Allergy/AdvReac Type Severity Reaction Status Date / Time Penicillins Allergy Unknown Verified 11/07/24 11:33 piroxicam Allergy Unknown Verified 11/07/24 11:33 shrimp Allergy Hives Verified 11/07/24 11:33 Sulfa (Sulfonamide Allergy Unknown Verified 11/07/24 11:33 Antibiotics) Active Medications: Current Medications Norepinephrine Bitartrate (Levophed) 8 mg in 250 mls @ 0 mls/hr IVCONT .Q0M MARC; Protocol Last Admin: 11/07/24 17:34 Dose: 0.05 mcg/kg/min, 7.38 mls/hr Home Medications ?Medication ?Instructions ?Recorded ?Confirmed ?Last Taken ?Type acetaminophen 500 mg tablet 500 mg PO BID 08/02/23 06/13/24 06/02/24 History albuterol sulfate 2.5 mg/3 mL 2.5 mg inhalation Q6H PRN 08/02/23 06/13/24 Unknown History (0.083 %) solution for nebulization Shortness Of Breath Or Wheezing aspirin 81 mg tablet,delayed 81 mg PO DAILY 08/02/23 06/03/24 06/02/24 History release atorvastatin 80 mg tablet 80 mg PO BEDTIME 08/02/23 06/13/24 06/02/24 History cholecalciferol (vitamin D3) 25 25 mcg PO DAILY 08/02/23 06/13/24 06/02/24 History mcg (1,000 unit) tablet clopidogrel 75 mg tablet 75 mg PO DAILY 08/02/23 06/14/24 06/02/24 History cyanocobalamin (vitamin B-12) 500 500 mcg PO DAILY 08/02/23 06/13/24 06/02/24 History mcg tablet fluoxetine 20 mg capsule 20 mg PO DAILY 08/02/23 06/13/24 06/02/24 History folic acid 400 mcg tablet 0.4 mg PO DAILY 08/02/23 06/13/24 06/02/24 History glipizide 5 mg tablet, extended 5 mg PO DAILY 08/02/23 06/14/24 06/02/24 History release 24 hr metoprolol succinate 25 mg 25 mg PO DAILY 08/02/23 06/13/24 06/02/24 History tablet,extended release 24 hr oxybutynin chloride 5 mg 5 mg PO DAILY 08/02/23 06/13/24 06/02/24 History tablet,extended release 24 hr pregabalin 150 mg capsule 150 mg PO TID 08/02/23 06/13/24 06/02/24 History trazodone 100 mg tablet 100 mg PO BEDTIME 08/02/23 06/13/24 06/02/24 History zinc oxide 20 % topical ointment 1 appl topical DAILY PRN Wound 08/02/23 06/13/24 Unknown History Healing fluticasone propionate 220 1 puff inhalation BID 09/10/23 06/13/24 06/02/24 History mcg/actuation HFA aerosol inhaler levetiracetam 250 mg tablet 250 mg PO BID 09/10/23 06/13/24 06/02/24 History (Keppra) loperamide 2 mg capsule 2 mg PO Q4H PRN Diarrhea 09/10/23 06/13/24 Unknown History albuterol sulfate 90 mcg/actuation 2 puff inhalation Q6H PRN wheezing 04/18/24 06/13/24 Unknown History aerosol inhaler (Ventolin HFA) methimazole 5 mg tablet 2.5 mg PO DAILY 04/18/24 06/13/24 06/02/24 History levalbuterol HCl 1.25 mg/3 mL 1.25 mg inhalation Q4H PRN wheezing 06/14/24 06/14/24 Unknown History solution for nebulization docusate sodium 100 mg capsule 100 mg PO BID 11/07/24 Unknown History furosemide 40 mg tablet 20 mg PO BID 11/07/24 Unknown History polyethylene glycol 3350 17 17 g PO DAILY 11/07/24 11/07/24 Unknown History gram/dose oral powder (Gavilax) Physical Exam 2 Vital Signs: Vital Signs: Last Vital Signs Temp 99.3 F 11/07/24 16:36 Pulse 62 11/07/24 17:34 Resp 18 11/07/24 16:36 BP 91/37 L 11/07/24 17:34 Pulse Ox 97 11/07/24 16:36 O2 Del Method Nasal Cannula 11/07/24 16:36 O2 Flow Rate 2 11/07/24 16:36 Oxygen Flow Rate 2 11/07/24 11:29 BMI result Body Mass Index 32.8 General: Elderly lady, chronically bed-bound with significant neuro deficit from previous stroke, difficult to arouse Nutritional Appearance: well nourished and overweight Eyes: appearance normal, both eyes and all related structures; Alignment and Position: alignment normal and position normal Neck: No lymphadenopathy, no thyromegaly Resp: bilateral air entry equal, crackles heard bilaterally Cardio: Regular rate, regular rhythm; Heart sounds: S1 normal heart sound present and S2 normal heart sound present GI: soft, nontender, no guarding, no hepatosplenomegaly : bladder normal to inspection, bladder normal to palpation, no renal angle tenderness Skin: no rashes or lesions noted and elasticity normal Neuro: Chronic left-sided spastic hemiparesis, facial nerve palsy Results Labs 11/07/24 11:54 11/07/24 11:55 Labs: Laboratory Results - last 24 hr 11/07/24 11/07/24 11/07/24 11:53 11:54 11:55 MCV 82.8 MCH 26.2 L MCHC 31.6 RDW 16.7 H Plt Count 143 L MPV 10.9 Immature Gran % (Auto) 0.5 H Neut % (Auto) 88.2 H Lymph % (Auto) 5.8 L Emmet % (Auto) 5.1 Eos % (Auto) 0.2 Baso % (Auto) 0.2 Lymph # (Auto) 0.8 L Emmet # (Auto) 0.7 Eos # (Auto) 0.0 Baso # (Auto) 0.0 Abs Immat Gran (auto) 0.06 H Absolute Neuts (auto) 11.6 H Absolute Nucleated RBC 0.000 Nucleated RBC % (auto) 0.0 PT 13.0 H INR 1.1 VBG pH VBG pCO2 VBG pO2 VBG HCO3 VBG O2 Saturation VBG Base Excess Anion Gap 13 Estim Creat Clear Calc 33.2 Estimated GFR 38 Random Glucose 158 H Lactic Acid 2.5 H* Lactic Acid F/U @ 2Hr Calcium 9.6 D Total Bilirubin 0.3 Direct Bilirubin 0.1 AST 16 ALT < 6 Alkaline Phosphatase 51 B-Natriuretic Peptide 87 Total Protein 7.6 Albumin 3.6 Lipase 21 Urine Color Urine Appearance Urine pH Ur Specific [place] Urine Protein Urine Glucose (UA) Urine Ketones Urine Blood Urine Nitrite Ur Leukocyte Esterase Urine RBC Urine WBC Ur Squamous Epith Cells Ur Transition Epith Cell Urine Bacteria Hyaline Casts Urine Yeast Influenza Type A (PCR) NEGATIVE Influenza Type B (PCR) NEGATIVE RSV RNA Qual (PCR) NEGATIVE SARS-CoV-2 RNA (RT-PCR) NEGATIVE 11/07/24 11/07/24 11/07/24 12:06 12:14 14:26 MCV MCH MCHC RDW Plt Count MPV Immature Gran % (Auto) Neut % (Auto) Lymph % (Auto) Emmet % (Auto) Eos % (Auto) Baso % (Auto) Lymph # (Auto) Emmet # (Auto) Eos # (Auto) Baso # (Auto) Abs Immat Gran (auto) Absolute Neuts (auto) Absolute Nucleated RBC Nucleated RBC % (auto) PT INR VBG pH 7.38 VBG pCO2 77 VBG pO2 29 VBG HCO3 46 H VBG O2 Saturation 40.0 VBG Base Excess 17.8 Anion Gap Estim Creat Clear Calc Estimated GFR Random Glucose Lactic Acid Lactic Acid F/U @ 2Hr 1.8 Calcium Total Bilirubin Direct Bilirubin AST ALT Alkaline Phosphatase B-Natriuretic Peptide Total Protein Albumin Lipase Urine Color Yellow Urine Appearance Turbid Urine pH 6.0 Ur Specific [place] 1.010 Urine Protein Negative Urine Glucose (UA) Negative Urine Ketones Negative Urine Blood Small (1+) H Urine Nitrite Negative Ur Leukocyte Esterase Large (3+) H Urine RBC 3-5 H Urine WBC 21-50 Ur Squamous Epith Cells 6-10 Ur Transition Epith Cell Present Urine Bacteria 2+ Hyaline Casts 3-5 Urine Yeast Present Influenza Type A (PCR) Influenza Type B (PCR) RSV RNA Qual (PCR) SARS-CoV-2 RNA (RT-PCR) Imaging Radiologist's Impressions: Impressions Chest X-Ray 11/07/24 11:29 IMPRESSION: Probable mild interstitial lung edema. Electronically signed by: Goyo Chicas MD 11/07/2024 12:32 PM EDT RP Chest CT 11/07/24 13:08 IMPRESSION: 1. Multiple right upper lobe masses as seen previously. 2. Patchy opacities at both lung bases which could represent atelectasis or pneumonia. 3. 2.2 cm precarinal lymph node. Electronically signed by: Nelson Hodges MD 11/07/2024 03:15 PM EDT RP Head CT 11/07/24 15:01 IMPRESSION: Small vessel occlusive disease. No acute stroke/nonhemorrhagic ischemia. Effusions, mastoid air cells. Electronically signed by: Goyo Chicas MD 11/07/2024 03:14 PM EDT RP Assessment and Plan (1) Congestive heart failure: Status: Acute (2) Acute on chronic heart failure with preserved ejection fraction (HFpEF): Status: Acute (3) Aortic stenosis: Status: Acute (4) GI bleed: Qualifiers: GI bleed type/associated pathology: unspecified gastrointestinal hemorrhage type Qualified Code(s): K92.2 - Gastrointestinal hemorrhage, unspecified Status: Acute (5) Septic shock: Status: Acute (6) Acute hypoxic on chronic hypercapnic respiratory failure: Status: Acute (7) Pneumonia: Status: Acute (8) Pulmonary aspiration: Status: Acute (9) Pneumonia: Qualifiers: Aspiration pneumonia type: unspecified Laterality: unspecified laterality Lung location: unspecified part of lung Pneumonia type: aspiration pneumonia Qualified Code(s): J69.0 - Pneumonitis due to inhalation of food and vomit Status: Acute (10) Seizure: Status: Acute Plan Neuro: Acute encephalopathy possibly due to metabolic encephalopathy on top of underlying significant neuro deficits secondary to previous stroke, dementia. CT head did not show any acute intracranial changes Closely monitor neurological status in the ICU Cardiac: Shock: Possibly secondary to septic shock from UTI On Levophed support, titrate Levophed to keep map above 65 mm Hg Bedside echo shows close to normal EF, the current mitral and aortic valves, IVC 1.4 cm with mild variation with respiration We will give 500 more cc of IV fluids Respiratory: Acute on chronic hypoxemic respiratory failure due to bilateral unspecified pneumonia as seen on CT scan with underlying COPD Up titrate oxygen to keep saturations above 88% GI: We will start on tube feeds tomorrow Renal: Renal function normal We will closely monitor I's and O's Avoid nephrotoxic medications Heme: Chronic anemia, closely monitor H&H, transfuse for hemoglobin less than 7 grams/deciliter Endocrine: Blood sugars under control Sliding scale insulin as needed Infectious disease: We will send pancultures We will start the patient on empiric ceftriaxone and azithromycin as her previous hospitalization was in May Musculoskeletal: Decubitus ulcer prevention protocol Lines: Ultrasound-guided IV line in the right arm Prophylaxis: Lovenox, pantoprazole
[2024-11-07] MEDS: Enoxaparin Sodium 40 MG/0.4 ML SYRINGE SUBCUT (18:37)
[2024-11-07] MEDS: Lactated Ringers 1,000 ML 100 ML IVCONT (18:37)
[2024-11-07 18:56] LABS: Phosphorus 3.7 mg/dL (2.7-4.5)
[2024-11-07] MEDS: Famotidine/PF 20 MG/2 ML VIAL IVPUSH (20:33)
[2024-11-07] MEDS: Azithromycin 500 MG in 0.9 % Sodium Chloride 250 ML 125 MG IV (20:35)
--- NOTE | 2024-11-07 20:38 | PHA.MEDREC ---
Addendum entered by Adamaris Womack [facility] 11/08/24 11:49: followed up with doctors office to ask about glipizide, per office patient has stopped taking the glipizide Addendum entered by Frida Bowles 11/07/24 20:42: couldn't confirm Glipized 5 mg, was not on list, however there are recent claims. Will have morning med rec team follow up Original Note: Pharmacy Consult ? Medication Reconciliation Pharmacy has completed the medication reconciliation. Utilized claims and list HCP Shasa that was printed from medical office to confirm med list.
--- NOTE | 2024-11-07 21:31 | PC.ADMIT ---
Patient arrived to ICU from ED by stretcher. She is alert and follows commands. She moves all extremities with limited rom and weakness. She can wiggle her toes but not lift her legs. She has a stroke hx with left sided hemiparesis. She is aphasic, answers questions with a yes or no but pleasantly confused. She denies any pain and no grimacing with turning and repositioning. She has what appears to be a DTI to her coccyx, possibly old pressure injury. Heels are dry and she has some small bruising/discoloration particulary to the outside of her ankles/ lateral malleolus, that also might be considered DTI. Bi lateral feel are abducted and lay flat on that part of her ankle. Feel elevated on pillows and allevyn foam dressings applied to ankles and coccyx. She is sinus tico on the monitor. Levophed drip to support blood pressure. Lungs are dim throughout, unlabored respirations, no respiratory distress. 2L oxygen with sats of 98%. Incontinent of bowels, no bm or GI issues noted. Abdomen soft, non tender. Curry catheter in place with slightly cloudy urine with sediment. VSS.
[2024-11-07 22:03] LABS: Glucose, Whole Blood 115 mg/dL (60-115)
[2024-11-08] VITALS (28 sets, daily range): BP systolic 91–158; BP diastolic 36–119; PULSE 44–83; RESP 14–26; TEMP 36.1–36.6; O2SAT 90–99; BMI 31.1; BMI 31.3
--- NOTE | 2024-11-08 | ECG_ITS ---
Test Reason : bradycardia Blood Pressure : */* mmHG Vent. Rate : 48 BPM Atrial Rate : 48 BPM P-R Int : 128 ms QRS Dur : 78 ms QT Int : 460 ms P-R-T Axes : * 20 26 degrees QTcB Int : 410 ms Sinus bradycardia with Premature atrial complexes Otherwise normal ECG When compared with ECG of 07-Nov-2024 11:42, Vent. rate has decreased by 40 bpm Referred By: Danny Puga Electronically Signed By: DAVID GOMES MD
[2024-11-08 01:56] LABS: Alanine Aminotransferase < 6 U/L (0-31); Albumin Level 3.1 g/dL (3.5-5.0); Anion Gap 14 (12-20); Aspartate Amino Transferase 16 U/L (5-31); Bilirubin Total 0.3 mg/dL (0.0-1.0); Blood Urea Nitrogen 27 mg/dL (9-16); Calcium 8.9 mg/dL (8.4-10.2); Carbon Dioxide 32 mmol/L (22-29); Chloride 102 mmol/L (96-108); Creatinine Clr Calc Pharmacy 42.3; Estimated Glomerular Filt Rate 53; Glucose Random 132 mg/dL (60-115); Potassium 4.6 mmol/L (3.3-5.1); Sodium 143 mmol/L (135-145); Total Protein 6.6 g/dL (6.5-8.0)
[2024-11-08 02:04] LABS: Alkaline Phosphatase 44 U/L (39-117)
[2024-11-08] MEDS: Albumin Human 25 % 100 ML 133.33 ML IV ×2 (03:15→04:15)
[2024-11-08 03:41] LABS: Glucose, Whole Blood 119 mg/dL (60-115)
[2024-11-08] MEDS: Lactated Ringers 1,000 ML 100 ML IVCONT (05:23)
[2024-11-08 05:42] LABS: MANUAL DIFF FLAG NO
[2024-11-08 05:51] LABS: Basophils Percent Auto 0.3 % (0-2); Eosinophils Absolute Auto 0.1 X10*3/uL (0.0-0.4); Eosinophils Percent Auto 0.6 % (0-4); Hematocrit 24.9 % (37.0-47.0); Hemoglobin 7.9 g/dl (12.0-16.0); Imm Gran Abs Auto 0.03 X10*3/uL (0.00-0.03); Imm Gran Pct Auto 0.3 % (0.0-0.4); Lymphocytes Absolute Auto 1.8 X10*3/uL (1.2-4.9); Lymphocytes Percent Auto 17.1 % (20-40); Mean Corpuscular HGB Conc 31.7 g/dl (31.0-35.0); Mean Corpuscular Hemoglobin 26.2 pg (27.0-33.0); Mean Corpuscular Volume 82.7 fL (80.0-98.0); Mean Platelet Volume 11.9 fL (9.4-12.3); Monocytes Absolute Auto 0.8 X10*3/uL (0.1-1.2); Monocytes Percent Auto 7.6 % (2-11); Neutrophils Absolute Auto 7.6 x10*3/uL (2.0-8.3); Neutrophils Percent Auto 74.1 % (45-73); Platelet Count 128 X10*3/uL (160-400); Red Blood Count 3.01 X10*6/uL (4.20-5.50); Red Cell Distribution Width 16.6 % (11.0-16.0); White Blood Count 10.3 X10*3/uL (4.8-10.8)
[2024-11-08 06:12] LABS: Alanine Aminotransferase < 6 U/L (0-31); Albumin Level 3.6 g/dL (3.5-5.0); Anion Gap 12 (12-20); Aspartate Amino Transferase 17 U/L (5-31); Bilirubin Total 0.3 mg/dL (0.0-1.0); Blood Urea Nitrogen 24 mg/dL (9-16); Calcium 8.5 mg/dL (8.4-10.2); Carbon Dioxide 32 mmol/L (22-29); Chloride 103 mmol/L (96-108); Creatinine Clr Calc Pharmacy 49.7; Estimated Glomerular Filt Rate > 60; Glucose Random 117 mg/dL (60-115); Magnesium 1.6 mg/dL (1.6-2.6); Potassium 4.2 mmol/L (3.3-5.1); Sodium 143 mmol/L (135-145); Total Protein 6.4 g/dL (6.5-8.0)
[2024-11-08 06:22] LABS: Alanine Aminotransferase < 6 U/L (0-31); Albumin Level 3.7 g/dL (3.5-5.0); Alkaline Phosphatase 34 U/L (39-117); Alkaline Phosphatase 36 U/L (39-117); Anion Gap 11 (12-20); Aspartate Amino Transferase 13 U/L (5-31); Bilirubin Total 0.4 mg/dL (0.0-1.0); Blood Urea Nitrogen 25 mg/dL (9-16); Calcium 8.7 mg/dL (8.4-10.2); Carbon Dioxide 34 mmol/L (22-29); Chloride 102 mmol/L (96-108); Creatinine Clr Calc Pharmacy 48.1; Estimated Glomerular Filt Rate > 60; Glucose Random 119 mg/dL (60-115); Magnesium 1.7 mg/dL (1.6-2.6); Phosphorus 3.2 mg/dL (2.7-4.5); Potassium 4.2 mmol/L (3.3-5.1); Sodium 143 mmol/L (135-145); Total Protein 6.5 g/dL (6.5-8.0)
[2024-11-08 06:26] LABS: TSH reflex Free T4 0.09 uIU/mL (0.32-4.0)
[2024-11-08 07:30] LABS: Free T4 (Free Thyroxine) 0.83 ng/dL (0.71-1.85)
[2024-11-08] MEDS: Famotidine/PF 20 MG/2 ML VIAL IVPUSH (08:44)
[2024-11-08] MEDS: Doxycycline Hyclate 100 MG in 0.9 % Sodium Chloride 250 ML 166.67 MG IV ×2 (08:44→20:47)
--- NOTE | 2024-11-08 09:44 | PM.CCPN ---
Subjective Subjective Date of Service: 11/08/24 Interval History: Mentation significantly better this when compared to yesterday Turned off Levophed this morning at 9AM Critical Care Time (minutes): 35 Physical Exam Vital Signs: Vital Signs: Last Vital Signs Temp 97.3 F 11/08/24 09:00 Pulse 58 11/08/24 09:00 Resp 19 11/08/24 09:00 BP 109/48 L 11/08/24 09:00 Pulse Ox 97 11/08/24 09:00 O2 Del Method Nasal Cannula 11/08/24 09:00 O2 Flow Rate 2 11/08/24 09:00 Oxygen Flow Rate 2 11/07/24 19:35 BMI result Body Mass Index 31.1 General: Elderly lady lying in the bed comfortable, alert Nutritional Appearance: well nourished and overweight Eyes: appearance normal, both eyes and all related structures; Alignment and Position: alignment normal and position normal Neck: No lymphadenopathy, no thyromegaly Resp: bilateral air entry equal, occasional added sounds present Cardio: Regular rate, regular rhythm; Heart sounds: S1 normal heart sound present and S2 normal heart sound present GI: soft, nontender, no guarding, no hepatosplenomegaly : bladder normal to inspection, bladder normal to palpation, no renal angle tenderness Skin: no rashes or lesions noted and elasticity normal Neuro: Alert, oriented to person, oriented to place, chronic left-sided spastic hemiparesis Objective Data Labs 11/08/24 05:14 11/08/24 05:14 Labs: Laboratory Results - last 24 hr 11/07/24 11/07/24 11/07/24 11:53 11:54 11:55 WBC 13.1 H RBC 4.01 L Hgb 10.5 L Hct 33.2 L MCV 82.8 MCH 26.2 L MCHC 31.6 RDW 16.7 H Plt Count 143 L MPV 10.9 Immature Gran % (Auto) 0.5 H Neut % (Auto) 88.2 H Lymph % (Auto) 5.8 L Wink[place] % (Auto) 5.1 Eos % (Auto) 0.2 Baso % (Auto) 0.2 Lymph # (Auto) 0.8 L [place]ink[place] # (Auto) 0.7 Eos # (Auto) 0.0 Baso # (Auto) 0.0 Abs Immat Gran (auto) 0.06 H Absolute Neuts (auto) 11.6 H Absolute Nucleated RBC 0.000 Nucleated RBC % (auto) 0.0 PT 13.0 H INR 1.1 VBG pH VBG pCO2 VBG pO2 VBG HCO3 VBG O2 Saturation VBG Base Excess Sodium 144 Potassium 4.5 Chloride 98 Carbon Dioxide 38 H Anion Gap 13 BUN 30 H Creatinine 1.35 Estim Creat Clear Calc 33.2 Estimated GFR 38 POC Glucose Random Glucose 158 H Lactic Acid 2.5 H* Lactic Acid F/U @ 2Hr Calcium 9.6 D Phosphorus 3.7 Magnesium Total Bilirubin 0.3 Direct Bilirubin 0.1 AST 16 ALT < 6 Alkaline Phosphatase 51 Troponin I High Sens 6.3 D B-Natriuretic Peptide 87 Total Protein 7.6 Albumin 3.6 Lipase 21 TSH Free T4 Urine Color Urine Appearance Urine pH Ur Specific [place] Urine Protein Urine Glucose (UA) Urine Ketones Urine Blood Urine Nitrite Ur Leukocyte Esterase Urine RBC Urine WBC Ur Squamous Epith Cells Ur Transition Epith Cell Urine Bacteria Hyaline Casts Urine Yeast Influenza Type A (PCR) NEGATIVE Influenza Type B (PCR) NEGATIVE RSV RNA Qual (PCR) NEGATIVE SARS-CoV-2 RNA (RT-PCR) NEGATIVE 11/07/24 11/07/24 11/07/24 12:06 12:14 14:26 WBC RBC Hgb Hct MCV MCH MCHC RDW Plt Count MPV Immature Gran % (Auto) Neut % (Auto) Lymph % (Auto) Winkler % (Auto) Eos % (Auto) Baso % (Auto) Lymph # (Auto) [place]ink[place] # (Auto) Eos # (Auto) Baso # (Auto) Abs Immat Gran (auto) Absolute Neuts (auto) Absolute Nucleated RBC Nucleated RBC % (auto) PT INR VBG pH 7.38 VBG pCO2 77 VBG pO2 29 VBG HCO3 46 H VBG O2 Saturation 40.0 VBG Base Excess 17.8 Sodium Potassium Chloride Carbon Dioxide Anion Gap BUN Creatinine Estim Creat Clear Calc Estimated GFR POC Glucose Random Glucose Lactic Acid Lactic Acid F/U @ 2Hr 1.8 Calcium Phosphorus Magnesium Total Bilirubin Direct Bilirubin AST ALT Alkaline Phosphatase Troponin I High Sens B-Natriuretic Peptide Total Protein Albumin Lipase TSH Free T4 Urine Color Yellow Urine Appearance Turbid Urine pH 6.0 Ur Specific [place] 1.010 Urine Protein Negative Urine Glucose (UA) Negative Urine Ketones Negative Urine Blood Small (1+) H Urine Nitrite Negative Ur Leukocyte Esterase Large (3+) H Urine RBC 3-5 H Urine WBC 21-50 Ur Squamous Epith Cells 6-10 Ur Transition Epith Cell Present Urine Bacteria 2+ Hyaline Casts 3-5 Urine Yeast Present Influenza Type A (PCR) Influenza Type B (PCR) RSV RNA Qual (PCR) SARS-CoV-2 RNA (RT-PCR) 11/07/24 11/08/24 11/08/24 21:59 01:33 03:37 WBC RBC Hgb Hct MCV MCH MCHC RDW Plt Count MPV Immature Gran % (Auto) Neut % (Auto) Lymph % (Auto) Winkler % (Auto) Eos % (Auto) Baso % (Auto) Lymph # (Auto) [place]ink[place] # (Auto) Eos # (Auto) Baso # (Auto) Abs Immat Gran (auto) Absolute Neuts (auto) Absolute Nucleated RBC Nucleated RBC % (auto) PT INR VBG pH VBG pCO2 VBG pO2 VBG HCO3 VBG O2 Saturation VBG Base Excess Sodium 143 Potassium 4.6 Chloride 102 Carbon Dioxide 32 H Anion Gap 14 BUN 27 H Creatinine 1.01 Estim Creat Clear Calc 42.3 Estimated GFR 53 POC Glucose 115 119 H Random Glucose 132 H Lactic Acid Lactic Acid F/U @ 2Hr Calcium 8.9 D Phosphorus Magnesium Total Bilirubin 0.3 Direct Bilirubin AST 16 ALT < 6 Alkaline Phosphatase 44 Troponin I High Sens B-Natriuretic Peptide Total Protein 6.6 Albumin 3.1 L Lipase TSH Free T4 Urine Color Urine Appearance Urine pH Ur Specific [place] Urine Protein Urine Glucose (UA) Urine Ketones Urine Blood Urine Nitrite Ur Leukocyte Esterase Urine RBC Urine WBC Ur Squamous Epith Cells Ur Transition Epith Cell Urine Bacteria Hyaline Casts Urine Yeast Influenza Type A (PCR) Influenza Type B (PCR) RSV RNA Qual (PCR) SARS-CoV-2 RNA (RT-PCR) 11/08/24 11/08/24 11/08/24 05:14 05:14 05:14 WBC 10.3 RBC 3.01 L D Hgb 7.9 L D Hct 24.9 L D MCV 82.7 MCH 26.2 L MCHC 31.7 RDW 16.6 H Plt Count 128 L MPV 11.9 Immature Gran % (Auto) 0.3 Neut % (Auto) 74.1 H Lymph % (Auto) 17.1 L Winkler % (Auto) 7.6 Eos % (Auto) 0.6 Baso % (Auto) 0.3 Lymph # (Auto) 1.8 Winkler # (Auto) 0.8 Eos # (Auto) 0.1 Baso # (Auto) 0.0 Abs Immat Gran (auto) 0.03 Absolute Neuts (auto) 7.6 Absolute Nucleated RBC 0.000 Nucleated RBC % (auto) 0.0 PT INR VBG pH VBG pCO2 VBG pO2 VBG HCO3 VBG O2 Saturation VBG Base Excess Sodium 143 143 Potassium 4.2 4.2 Chloride 102 Carbon Dioxide Anion Gap BUN Creatinine Estim Creat Clear Calc Estimated GFR POC Glucose Random Glucose Lactic Acid Lactic Acid F/U @ 2Hr Calcium Phosphorus Magnesium Total Bilirubin Direct Bilirubin AST ALT Alkaline Phosphatase Troponin I High Sens B-Natriuretic Peptide Total Protein Albumin Lipase TSH Free T4 Urine Color Urine Appearance Urine pH Ur Specific [place] Urine Protein Urine Glucose (UA) Urine Ketones Urine Blood Urine Nitrite Ur Leukocyte Esterase Urine RBC Urine WBC Ur Squamous Epith Cells Ur Transition Epith Cell Urine Bacteria Hyaline Casts Urine Yeast Influenza Type A (PCR) Influenza Type B (PCR) RSV RNA Qual (PCR) SARS-CoV-2 RNA (RT-PCR) 11/08/24 11/08/24 11/08/24 05:14 05:14 05:14 WBC RBC Hgb Hct MCV MCH MCHC RDW Plt Count MPV Immature Gran % (Auto) Neut % (Auto) Lymph % (Auto) [place]ink[place] % (Auto) Eos % (Auto) Baso % (Auto) Lymph # (Auto) [place]ink[place] # (Auto) Eos # (Auto) Baso # (Auto) Abs Immat Gran (auto) Absolute Neuts (auto) Absolute Nucleated RBC Nucleated RBC % (auto) PT INR VBG pH VBG pCO2 VBG pO2 VBG HCO3 VBG O2 Saturation VBG Base Excess Sodium Potassium Chloride 103 Carbon Dioxide 34 H 32 H Anion Gap 11 L 12 BUN 25 H Creatinine Estim Creat Clear Calc Estimated GFR POC Glucose Random Glucose Lactic Acid Lactic Acid F/U @ 2Hr Calcium Phosphorus Magnesium Total Bilirubin Direct Bilirubin AST ALT Alkaline Phosphatase Troponin I High Sens B-Natriuretic Peptide Total Protein Albumin Lipase TSH Free T4 Urine Color Urine Appearance Urine pH Ur Specific [place] Urine Protein Urine Glucose (UA) Urine Ketones Urine Blood Urine Nitrite Ur Leukocyte Esterase Urine RBC Urine WBC Ur Squamous Epith Cells Ur Transition Epith Cell Urine Bacteria Hyaline Casts Urine Yeast Influenza Type A (PCR) Influenza Type B (PCR) RSV RNA Qual (PCR) SARS-CoV-2 RNA (RT-PCR) 11/08/24 11/08/24 11/08/24 05:14 05:14 05:14 WBC RBC Hgb Hct MCV MCH MCHC RDW Plt Count MPV Immature Gran % (Auto) Neut % (Auto) Lymph % (Auto) [place]ink[place] % (Auto) Eos % (Auto) Baso % (Auto) Lymph # (Auto) [place]ink[place] # (Auto) Eos # (Auto) Baso # (Auto) Abs Immat Gran (auto) Absolute Neuts (auto) Absolute Nucleated RBC Nucleated RBC % (auto) PT INR VBG pH VBG pCO2 VBG pO2 VBG HCO3 VBG O2 Saturation VBG Base Excess Sodium Potassium Chloride Carbon Dioxide Anion Gap BUN 24 H Creatinine 0.89 0.86 Estim Creat Clear Calc 48.1 49.7 Estimated GFR > 60 POC Glucose Random Glucose Lactic Acid Lactic Acid F/U @ 2Hr Calcium Phosphorus Magnesium Total Bilirubin Direct Bilirubin AST ALT Alkaline Phosphatase Troponin I High Sens B-Natriuretic Peptide Total Protein Albumin Lipase TSH Free T4 Urine Color Urine Appearance Urine pH Ur Specific [place] Urine Protein Urine Glucose (UA) Urine Ketones Urine Blood Urine Nitrite Ur Leukocyte Esterase Urine RBC Urine WBC Ur Squamous Epith Cells Ur Transition Epith Cell Urine Bacteria Hyaline Casts Urine Yeast Influenza Type A (PCR) Influenza Type B (PCR) RSV RNA Qual (PCR) SARS-CoV-2 RNA (RT-PCR) 11/08/24 11/08/24 11/08/24 05:14 05:14 05:14 WBC RBC Hgb Hct MCV MCH MCHC RDW Plt Count MPV Immature Gran % (Auto) Neut % (Auto) Lymph % (Auto) [place] % (Auto) Eos % (Auto) Baso % (Auto) Lymph # (Auto) [place] # (Auto) Eos # (Auto) Baso # (Auto) Abs Immat Gran (auto) Absolute Neuts (auto) Absolute Nucleated RBC Nucleated RBC % (auto) PT INR VBG pH VBG pCO2 VBG pO2 VBG HCO3 VBG O2 Saturation VBG Base Excess Sodium Potassium Chloride Carbon Dioxide Anion Gap BUN Creatinine Estim Creat Clear Calc Estimated GFR > 60 POC Glucose Random Glucose 119 H 117 H Lactic Acid Lactic Acid F/U @ 2Hr Calcium 8.7 8.5 Phosphorus 3.2 Magnesium 1.7 Total Bilirubin Direct Bilirubin AST ALT Alkaline Phosphatase Troponin I High Sens B-Natriuretic Peptide Total Protein Albumin Lipase TSH Free T4 Urine Color Urine Appearance Urine pH Ur Specific [place] Urine Protein Urine Glucose (UA) Urine Ketones Urine Blood Urine Nitrite Ur Leukocyte Esterase Urine RBC Urine WBC Ur Squamous Epith Cells Ur Transition Epith Cell Urine Bacteria Hyaline Casts Urine Yeast Influenza Type A (PCR) Influenza Type B (PCR) RSV RNA Qual (PCR) SARS-CoV-2 RNA (RT-PCR) 11/08/24 11/08/24 11/08/24 05:14 05:14 05:14 WBC RBC Hgb Hct MCV MCH MCHC RDW Plt Count MPV Immature Gran % (Auto) Neut % (Auto) Lymph % (Auto) [place]ink[place] % (Auto) Eos % (Auto) Baso % (Auto) Lymph # (Auto) [place]ink[place] # (Auto) Eos # (Auto) Baso # (Auto) Abs Immat Gran (auto) Absolute Neuts (auto) Absolute Nucleated RBC Nucleated RBC % (auto) PT INR VBG pH VBG pCO2 VBG pO2 VBG HCO3 VBG O2 Saturation VBG Base Excess Sodium Potassium Chloride Carbon Dioxide Anion Gap BUN Creatinine Estim Creat Clear Calc Estimated GFR POC Glucose Random Glucose Lactic Acid Lactic Acid F/U @ 2Hr Calcium Phosphorus Magnesium 1.6 Total Bilirubin 0.4 0.3 Direct Bilirubin AST 13 17 ALT < 6 Alkaline Phosphatase Troponin I High Sens B-Natriuretic Peptide Total Protein Albumin Lipase TSH Free T4 Urine Color Urine Appearance Urine pH Ur Specific [place] Urine Protein Urine Glucose (UA) Urine Ketones Urine Blood Urine Nitrite Ur Leukocyte Esterase Urine RBC Urine WBC Ur Squamous Epith Cells Ur Transition Epith Cell Urine Bacteria Hyaline Casts Urine Yeast Influenza Type A (PCR) Influenza Type B (PCR) RSV RNA Qual (PCR) SARS-CoV-2 RNA (RT-PCR) 11/08/24 11/08/24 11/08/24 05:14 05:14 05:14 WBC RBC Hgb Hct MCV MCH MCHC RDW Plt Count MPV Immature Gran % (Auto) Neut % (Auto) Lymph % (Auto) [place]ink[place] % (Auto) Eos % (Auto) Baso % (Auto) Lymph # (Auto) [place]ink[place] # (Auto) Eos # (Auto) Baso # (Auto) Abs Immat Gran (auto) Absolute Neuts (auto) Absolute Nucleated RBC Nucleated RBC % (auto) PT INR VBG pH VBG pCO2 VBG pO2 VBG HCO3 VBG O2 Saturation VBG Base Excess Sodium Potassium Chloride Carbon Dioxide Anion Gap BUN Creatinine Estim Creat Clear Calc Estimated GFR POC Glucose Random Glucose Lactic Acid Lactic Acid F/U @ 2Hr Calcium Phosphorus Magnesium Total Bilirubin Direct Bilirubin AST ALT < 6 Alkaline Phosphatase 36 L 34 L Troponin I High Sens B-Natriuretic Peptide Total Protein 6.5 6.4 L Albumin 3.7 Lipase TSH Free T4 Urine Color Urine Appearance Urine pH Ur Specific [place] Urine Protein Urine Glucose (UA) Urine Ketones Urine Blood Urine Nitrite Ur Leukocyte Esterase Urine RBC Urine WBC Ur Squamous Epith Cells Ur Transition Epith Cell Urine Bacteria Hyaline Casts Urine Yeast Influenza Type A (PCR) Influenza Type B (PCR) RSV RNA Qual (PCR) SARS-CoV-2 RNA (RT-PCR) 11/08/24 05:14 WBC RBC Hgb Hct MCV MCH MCHC RDW Plt Count MPV Immature Gran % (Auto) Neut % (Auto) Lymph % (Auto) [place]ink[place] % (Auto) Eos % (Auto) Baso % (Auto) Lymph # (Auto) [place]ink[place] # (Auto) Eos # (Auto) Baso # (Auto) Abs Immat Gran (auto) Absolute Neuts (auto) Absolute Nucleated RBC Nucleated RBC % (auto) PT INR VBG pH VBG pCO2 VBG pO2 VBG HCO3 VBG O2 Saturation VBG Base Excess Sodium Potassium Chloride Carbon Dioxide Anion Gap BUN Creatinine Estim Creat Clear Calc Estimated GFR POC Glucose Random Glucose Lactic Acid Lactic Acid F/U @ 2Hr Calcium Phosphorus Magnesium Total Bilirubin Direct Bilirubin AST ALT Alkaline Phosphatase Troponin I High Sens B-Natriuretic Peptide Total Protein Albumin 3.6 Lipase TSH 0.09 L Free T4 0.83 Urine Color Urine Appearance Urine pH Ur Specific [place] Urine Protein Urine Glucose (UA) Urine Ketones Urine Blood Urine Nitrite Ur Leukocyte Esterase Urine RBC Urine WBC Ur Squamous Epith Cells Ur Transition Epith Cell Urine Bacteria Hyaline Casts Urine Yeast Influenza Type A (PCR) Influenza Type B (PCR) RSV RNA Qual (PCR) SARS-CoV-2 RNA (RT-PCR) Microbiology Microbiology Results: Microbiology 11/07/24 11:54 Blood - Venous Blood Culture - Preliminary Prelim: GPC Gram Stain only Progress Note: A&P Assessment and plan (1) Aortic stenosis: Status: Acute (2) Septic shock: Status: Acute (3) Seizure: Status: Acute (4) Pneumonia: Status: Acute (5) Pulmonary aspiration: Status: Acute (6) Acute hypoxic on chronic hypercapnic respiratory failure: Status: Acute Plan Neuro: Acute encephalopathy has resolved; however she underlying significant neuro deficits secondary to previous stroke, dementia. CT head did not show any acute intracranial changes Closely monitor neurological status in the ICU Cardiac: Shock: Resolved Turned off Levophed support at 9 in the morning, we will monitor her blood pressures Bedside echo shows close to normal EF, the current mitral and aortic valves, IVC 1.4 cm with mild variation with respiration Respiratory: Acute on chronic hypoxemic respiratory failure due to bilateral unspecified pneumonia as seen on CT scan with underlying COPD Titrate oxygen to keep saturations above 88% GI: will do a bedside swallow, oral feeds after that Renal: Renal function normal We will closely monitor I's and O's Avoid nephrotoxic medications Heme: Chronic anemia, closely monitor H&H, transfuse for hemoglobin less than 7 grams/deciliter Endocrine: Blood sugars under control Sliding scale insulin as needed Infectious disease: blood culture positive for gram postive cocci in cluster possibly contaminant will repeat cultures on empiric ceftriaxone and doxycycline as her previous hospitalization was in May Musculoskeletal: Decubitus ulcer prevention protocol Lines: Ultrasound-guided IV line in the right arm Prophylaxis: Lovenox, pantoprazole Quality Stroke Does the patient have a stroke diagnosis?: No VTE Prior VTE?: No VTE Risk Level:: Medical - low VTE Device Contraindication: N/A - Device Ordered VTE Drug Contraindication: N/A - Med Ordered
[2024-11-08 09:45] LABS: Glucose, Whole Blood 106 mg/dL (60-115)
[2024-11-08] MEDS: cefTRIAXone sodium 1 GM VIAL IVPUSH (12:28)
--- NOTE | 2024-11-08 12:29 | MHC.CLN ---
RE: CONSULT PT WITH INCREASED RISK R/T PRESSURE INJURY PT CURRENTLY NPO WHEN DIET TO ADVANCE; RECOMMEND ADDING NUTRITION SUPPLEMENT TO PROMOTE WOUND HEALING ENSURE MAX BID TO PROVIDE 300KCALS, 60G PROTEIN FOLLOWING FOR DIET ADVANCEMENT SEE ALSO FULL CLINICAL NUTRITION ASSESSMENT
--- NOTE | 2024-11-08 13:41 | MHC.CM.PN ---
Pt unable to participate in CM assessment d/t medical condition: information obtained from pt's HCP, Mariely via phone. Per Mariely, pt resides at the independent living units on the [facility]. She has 24/ care along with all adaptive DME. Mariely states pt is dependent for all care needs and uses BLS for transportation. Mariely requesting as early of notice as possible for d/c date so she can ensure staff coverage for pt. IMM in chart. CM to follow
--- NOTE | 2024-11-08 17:06 | MHC.SL.SWA ---
Speech Pathologist Impression: Risk of Aspiration Due to: History of Pneumonia Reduced Cognition Dysphasia Diet Status: Liquid Consistency and Strategies for Safe Swallow: Liquid Intake Recommendation: [place] Thick Liquid Intake Strategies: Small Sips No Straws Solid Food Consistency: Dietary Recommendations: Grnd/Mech Altered (NDD2) Additional Modifications to Solid Foods: Patient will need 1-1 feed. Patient can orally hold food, monitor for swallow before presenting more food. Alternate liquids and solids, liquids by controlled cup sip, no straws. Oral Medication Intake: Crushed with Puree Please contact the pharmacy regarding appropriate crushable or liquid drug formulations that are available whenever modified delivery is recommended. Compensatory Strategies and Precautions to be Taken for Safe Swallow: Sitting Upright (90 deg) No Straw Liquids from Cup Small Bites and Sips Alternate Liquids/Solids Rate of Ingestion Change Oral Check Supervision While Eating and Drinking for Safe Swallow: Total Assistance (1:1) Foods to Avoid: too large pieces of food, mixed consistencies, difficult to chew solids. Swallowing Recommended Treatments: Compens. Strategy Educat. Recommendation for Speech: Inpatient Speech Therapy Comment: Patient presents with a moderate oral pharyngeal dysphagia, mild oral motor weakness, and is edentulous. Recommend Start diet of Ground/Mechanical (NDD2) with NECTAR THICK liquids (by controlled cup sip, no straw), pills crushed in puree. Patient will require a one to one feed, with close monitoring as patient noted to hold food at times before initiating swallow. ESTIMATOR will continue to follow, re-assess for possible upgrade as warranted. , RN notified of recommendation in person. Patient pending transfer to Med/Surg floor. Frequency/Duration: Date Range for Service Req: Timeline to reassess: [place] Former Clinican/Clinical Fellow: No Supervisory Statement: I have reviewed and agree with the student/clinical fellow's documentation: N/A Speech Language Pathologist: Helga Morataya M.A., [facility]-ESTIMATOR
[2024-11-08 17:36] LABS: Glucose, Whole Blood 72 mg/dL (60-115)
--- NOTE | 2024-11-08 18:16 | PC.NURSE ---
Assumed care at 1400.? Speech performed swallow evaluation at approx 1600. Recommendation of nectar thick liquids and ground solids. Pt voided at approx 1730. See MAR for medication administration details. Pt repositioned q2hr; bed in lowest position and locked.?
[2024-11-08] MEDS: Enoxaparin Sodium 40 MG/0.4 ML SYRINGE SUBCUT (18:25)
[2024-11-08 21:03] LABS: Glucose, Whole Blood 80 mg/dL (60-115)
[2024-11-09] VITALS (8 sets, daily range): BP systolic 137–179; BP diastolic 59–82; PULSE 68–102; RESP 16–93; TEMP 36.1–36.5; O2SAT 92–96
[2024-11-09 00:24] LABS: Glucose, Whole Blood 82 mg/dL (60-115)
[2024-11-09 07:30] LABS: Glucose, Whole Blood 103 mg/dL (60-115)
[2024-11-09] MEDS: vancomycin/NS 2,000 MG/500 ML PLAST..BAG 250 MG IV (09:30)
[2024-11-09] MEDS: Doxycycline Hyclate 100 MG in 0.9 % Sodium Chloride 250 ML 166.67 MG IV ×2 (09:31→21:26)
[2024-11-09] MEDS: 0.9 % Sodium Chloride Flush 3 ML SYRINGE IVFLUSH ×3 (09:44→21:31)
[2024-11-09] MEDS: Cholecalciferol (Vitamin D3) 25 MCG TABLET PO (10:05)
[2024-11-09] MEDS: Famotidine/PF 20 MG/2 ML VIAL IVPUSH (10:05)
[2024-11-09] MEDS: oxyBUTYnin chloride ER 5 MG TAB.ER.24 PO (10:05)
[2024-11-09] MEDS: Pregabalin 150 MG CAPSULE PO ×3 (10:05→21:25)
[2024-11-09] MEDS: Ferrous Sulfate 324 MG TABLET.DR PO (10:06)
[2024-11-09] MEDS: methIMAzole 5 MG TABLET 2.5 MG PO (10:06)
[2024-11-09] MEDS: Folic Acid 1 MG TABLET PO (10:06)
[2024-11-09] MEDS: FLUoxetine HCl 20 MG CAPSULE PO (10:06)
[2024-11-09] MEDS: Clopidogrel Bisulfate 75 MG TABLET PO (10:06)
[2024-11-09] MEDS: Metoprolol Succinate ER 25 MG TAB.ER.24H PO (10:07)
[2024-11-09] MEDS: Cyanocobalamin (Vitamin B-12) 500 MCG TABLET PO (10:07)
[2024-11-09] MEDS: Aspirin Enteric Coated 81 MG TABLET.DR PO (10:07)
[2024-11-09] MEDS: levETIRAcetam 250 MG TABLET PO ×2 (10:07→21:26)
[2024-11-09] MEDS: polyethylene glycoL 3350 17 GM POWD.PACK PO (10:08)
--- NOTE | 2024-11-09 10:30 | P.PNIM_ITS ---
Subjective Subjective Date of Service: 11/09/24 Interval History: feels well denies cough or dyspnea denies abd pain or dysuria Review of Systems Review of Systems: Yes all other systems are reviewed and are negative Physical Exam 2 Vital Signs: Vital Signs: Last Vital Signs Temp 96.9 F 11/09/24 07:28 Pulse 96 11/09/24 07:28 Resp 20 11/09/24 07:28 BP 158/74 H 11/09/24 07:28 Pulse Ox 92 11/09/24 03:47 O2 Del Method Nasal Cannula 11/09/24 03:47 O2 Flow Rate 1 11/09/24 03:47 Oxygen Flow Rate 2 11/07/24 19:35 BMI result Body Mass Index 31.3 Gen: in no acute distress HEENT: sclera anicteric, moist mucus membranes Neck: supple Lungs: clear to auscultation bilaterally Heart: regular rate and rhythm, no murmurs Abd: soft, non-tender, non-distended Ext: no edema Skin: warm/well-perfused Neuro: alert, chronic facial droop and L-sided weakness Psych: impaired insight Objective Data Active Medications Albuterol Sulfate (Albuterol Sulfate (0.083%) 2.5 Mg/3 Ml Vial.Neb) 2.5 mg INHALE Q6H PRN PRN Reason: Shortness Of Breath Or Wheezing Aspirin (Aspirin Enteric Coated 81 Mg Tablet.) 81 mg PO DAILY [facility] Last Admin: 11/09/24 10:07 Dose: 81 mg Documented By: BREE Atorvastatin Calcium (Atorvastatin Calcium 80 Mg Tablet) 80 mg PO BEDTIME [facility] Ceftriaxone Sodium (Ceftriaxone Sodium 1 Gm Vial) 1 gm IVPUSH Q24H [facility] Last Admin: 11/08/24 12:28 Dose: 1 gm Documented By: JALIL Clopidogrel Bisulfate (Clopidogrel Bisulfate 75 Mg Tablet) 75 mg PO DAILY [facility] Last Admin: 11/09/24 10:06 Dose: 75 mg Documented By: BREE Cyanocobalamin (Cyanocobalamin (Vitamin B-12) 500 Mcg Tablet) 500 mcg PO DAILY [facility] Last Admin: 11/09/24 10:07 Dose: 500 mcg Documented By: BREE Dextrose (Dextrose 50 % 25 Gm/50 Ml Syringe) 25 gm IVPUSH Q15M PRN; Protocol PRN Reason: per Hypoglycemia Standing Ord. Docusate Sodium (Docusate Sodium 100 Mg Capsule) 100 mg PO BID [facility] Last Admin: 11/09/24 10:08 Dose: Not Given Documented By: BREE Non-Admin Reason: unable to crush Enoxaparin Sodium (Enoxaparin Sodium 40 Mg/0.4 Ml Syringe) 40 mg SUBCUT Q24H [facility] Last Admin: 11/08/24 18:25 Dose: 40 mg Documented By: SOLISPE Famotidine (Famotidine/Pf 20 Mg/2 Ml Vial) 20 mg IVPUSH DAILY [facility] Last Admin: 11/09/24 10:05 Dose: 20 mg Documented By: BREE Ferrous Sulfate (Ferrous Sulfate 324 Mg Tablet.Dr) 324 mg PO DAILY [facility] Last Admin: 11/09/24 10:06 Dose: 324 mg Documented By: BREE Fluoxetine HCl (Fluoxetine Hcl 20 Mg Capsule) 20 mg PO DAILY [facility] Last Admin: 11/09/24 10:06 Dose: 20 mg Documented By: BREE Fluticasone Propionate (Fluticasone Propionate 250 Mcg Blst.W.Dev) 1 puff INHALE RBID [facility] Folic Acid (Folic Acid 1 Mg Tablet) 1 mg PO DAILY [facility] Last Admin: 11/09/24 10:06 Dose: 1 mg Documented By: BREE Glucose (Glucose Gel 15 Gm Gel..Gram.) 15 gm PO Q15M PRN; Protocol PRN Reason: per Hypoglycemia Standing Ord. Doxycycline Hyclate 100 mg/ (Sodium Chloride) 250 mls @ 166.67 mls/hr IV Q12H [facility] Last Admin: 11/09/24 09:31 Dose: 166.67 mls/hr Documented By: BREE Vancomycin HCl 1,500 mg/ (Sodium Chloride) 500 mls @ 333.333 mls/hr IV Q24H [facility] Insulin Human Lispro (Insulin Lispro 100 Unit/Ml 3 Ml Vial) 0 unit SUBCUT QIDACHS [facility]; Protocol Last Admin: 11/09/24 07:41 Dose: Not Given Documented By: BREE Non-Admin Reason: No Insulin Coverage Levetiracetam (Levetiracetam 250 Mg Tablet) 250 mg PO BID [facility] Last Admin: 11/09/24 10:07 Dose: 250 mg Documented By: BREE Methimazole (Methimazole 5 Mg Tablet) 2.5 mg PO DAILY [facility] Last Admin: 11/09/24 10:06 Dose: 2.5 mg Documented By: BREE Metoprolol Succinate (Metoprolol Succinate Er 25 Mg Tab.Er.24h) 25 mg PO DAILY [facility]; Protocol Last Admin: 11/09/24 10:07 Dose: 25 mg Documented By: BREE Ondansetron HCl (Ondansetron Hcl 4 Mg/2 Ml Vial) 4 mg IVPUSH Q8H PRN PRN Reason: Nausea and Vomiting Oxybutynin Chloride (Oxybutynin Chloride Er 5 Mg Tab.Er.24) 5 mg PO DAILY [facility] Last Admin: 11/09/24 10:05 Dose: 5 mg Documented By: BREE Pharmacy Consult (Consult Rx Vancomycin Dosing) 1 each MISCELLANE DAILY PRN PRN Reason: Consult order Polyethylene Glycol (Polyethylene Glycol 3350 17 Gm Powd.Pack) 17 gm PO DAILY [facility] Last Admin: 11/09/24 10:08 Dose: 17 gm Documented By: BREE Pregabalin (Pregabalin 150 Mg Capsule) 150 mg PO TID [facility] Last Admin: 11/09/24 10:05 Dose: 150 mg Documented By: BREE Sodium Chloride (0.9 % Sodium Chloride Flush 3 Ml Syringe) 3 ml IVFLUSH QSHIFT [facility] Last Admin: 11/09/24 09:44 Dose: 3 ml Documented By: BREE Trazodone HCl (Trazodone Hcl 100 Mg Tablet) 100 mg PO BEDTIME [facility] Vitamin D (Cholecalciferol (Vitamin D3) 25 Mcg Tablet) 25 mcg PO DAILY [facility] Last Admin: 11/09/24 10:05 Dose: 25 mcg Documented By: BREE Zinc Oxide (Zinc Oxide 20% Ointment 28.35 Gm Tube) 1 appl TOPICAL DAILY PRN; Protocol PRN Reason: Wound Healing Labs 11/08/24 05:14 11/08/24 05:14 Labs: Laboratory Results - last 24 hr 11/08/24 11/08/24 11/09/24 17:25 20:58 00:21 POC Glucose 72 80 82 11/09/24 07:19 POC Glucose 103 Microbiology Microbiology Results: Microbiology 11/07/24 11:57 Blood Culture - Preliminary Blood - Venous Staphylococcus species 11/07/24 11:54 Blood Culture - Preliminary Blood - Venous Staphylococcus species 11/07/24 Unknown Urine Culture - Preliminary Urine Catheterized - Curry Catheter Culture in progress. Assessment and Plan (1) Septic shock: Status: Acute Plan d2 for 78yo F resident of [facility] with L hemiparesis from prior CVA, COPD on 2L home O2, HTN, HLD, HFpEF, aortic stenosis, seizures, and dementia presented with AMS and hypoxia, found to be hypotensive, admitted to ICU for septic shock from suspected UTI vs PNA though also growing GPCs in blood cultures weaned off pressors 11/08/24 then stepped down to telemetry septic shock - possible sources include lung + urinary tract; on ceftriaxone + doxycycline. 2/2 BCx growing GPCs in clusters from 11/07; repeat BCx 11/08 pending; will add MRSA coverage with vancomycin pending speciation and susceptibilties anemia - probably due to chronic disease but also check iron studies, B12/FA, retics/LDH acute encephalopathy due to sepsis - resolving, baseline neuro deficits due to prior stroke + dementia chronic hypercapnic/chypoxic resp failure - home O2 with goal SaO2 no greater than 92% prior CVA - continue ASA + clopidogrel + atorvastatin hyperthyroidism - methimazole seizure disorder - levetiracetam neuropathy - pregabalin DM2 - shae-dose lispro mood disorder - trazodone + fluoxetine VTE prophylaxis - enoxaparin dispo - eventual return to [facility] In my clinical judgment, the patient requires continued inpatient hospitalization for the following reasons: IV ABX Total time managing care of this patient today: 50 minutes. Quality Stroke Does the patient have a stroke diagnosis?: No VTE Prior VTE?: No VTE Risk Level:: Medical - low VTE Device Contraindication: N/A - Device Ordered VTE Drug Contraindication: N/A - Med Ordered
[2024-11-09 11:44] LABS: Glucose, Whole Blood 138 mg/dL (60-115)
[2024-11-09 11:48] LABS: Hematocrit 31.2 % (37.0-47.0); Hemoglobin 10.2 g/dl (12.0-16.0); Mean Corpuscular HGB Conc 32.7 g/dl (31.0-35.0); Mean Corpuscular Hemoglobin 26.4 pg (27.0-33.0); Mean Corpuscular Volume 80.6 fL (80.0-98.0); Mean Platelet Volume 11.3 fL (9.4-12.3); Platelet Count 145 X10*3/uL (160-400); Red Blood Count 3.87 X10*6/uL (4.20-5.50); Red Cell Distribution Width 16.7 % (11.0-16.0); White Blood Count 8.6 X10*3/uL (4.8-10.8)
[2024-11-09 11:49] LABS: Immature Retic Fraction 14.7 % (3.0-15.9); Retic HGB Equivalent 28.9 pg (30.0-35.0); Reticulocyte Percent 1.7 % (0.5-1.8); Reticulocytes Absolute 0.067 X10*6/uL (0.026-0.095)
[2024-11-09] MEDS: cefTRIAXone sodium 1 GM VIAL IVPUSH (11:58)
[2024-11-09 12:09] LABS: B Type Natriuretic Peptide 722 pg/mL (<100)
[2024-11-09 12:22] LABS: Anion Gap 12 (12-20); Blood Urea Nitrogen 14 mg/dL (9-16); Carbon Dioxide 32 mmol/L (22-29); Chloride 104 mmol/L (96-108); Creatinine Clr Calc Pharmacy 55.1; Estimated Glomerular Filt Rate > 60; Glucose Random 129 mg/dL (60-115); Iron 17 mcg/dL (30-160); Lactate Dehydrogenase 173 U/L (122-220); Percent Iron Saturation 8 % (15-50); Potassium 3.8 mmol/L (3.3-5.1); Sodium 144 mmol/L (135-145); Total Iron Binding Capacity 220 mcg/dL (228-428); Unsaturated Iron Binding 203 ug/dL
[2024-11-09 12:24] LABS: Ferritin 54 ng/mL (10-250)
[2024-11-09 12:38] LABS: Folate 15.1 ng/mL (> or = 4.0); Vitamin B12 1827 pg/mL (200-900)
[2024-11-09 13:54] LABS: Procalcitonin 0.44 ng/mL
[2024-11-09 16:15] LABS: Glucose, Whole Blood 136 mg/dL (60-115)
[2024-11-09] MEDS: Enoxaparin Sodium 40 MG/0.4 ML SYRINGE SUBCUT (16:21)
[2024-11-09] MEDS: Fluticasone Propionate 250 MCG BLST.W.DEV 1 PUFF INHALE (19:38)
[2024-11-09 20:29] LABS: Glucose, Whole Blood 105 mg/dL (60-115)
[2024-11-09] MEDS: traZODone HCL 100 MG TABLET PO (21:25)
[2024-11-09] MEDS: Atorvastatin Calcium 80 MG TABLET PO (21:25)
[2024-11-09] MEDS: Docusate Sodium 100 MG CAPSULE PO (21:32)
[2024-11-10] VITALS (10 sets, daily range): BP systolic 110–127; BP diastolic 52–58; PULSE 47–68; RESP 16–20; TEMP 36.1–36.3; O2SAT 96–100
[2024-11-10 07:38] LABS: Hematocrit 28.3 % (37.0-47.0); Hemoglobin 8.8 g/dl (12.0-16.0); Mean Corpuscular HGB Conc 31.1 g/dl (31.0-35.0); Mean Corpuscular Hemoglobin 25.7 pg (27.0-33.0); Mean Corpuscular Volume 82.7 fL (80.0-98.0); Mean Platelet Volume 11.3 fL (9.4-12.3); Platelet Count 144 X10*3/uL (160-400); Red Blood Count 3.42 X10*6/uL (4.20-5.50); Red Cell Distribution Width 16.8 % (11.0-16.0); White Blood Count 6.1 X10*3/uL (4.8-10.8)
[2024-11-10 07:53] LABS: Vancomycin Random 14.1 mcg/mL (15-20)
[2024-11-10 07:56] LABS: Anion Gap 11 (12-20); Blood Urea Nitrogen 12 mg/dL (9-16); Calcium 8.7 mg/dL (8.4-10.2); Carbon Dioxide 31 mmol/L (22-29); Chloride 108 mmol/L (96-108); Estimated Glomerular Filt Rate > 60; Glucose Random 88 mg/dL (60-115); Potassium 3.7 mmol/L (3.3-5.1); Sodium 146 mmol/L (135-145)
--- NOTE | 2024-11-10 08:00 | HE.PHANOTE ---
Re: Vanco Renal function improving. Check trough after load: 14.1. Changing dose to 1250mg q24h with predicted AUC 531. predicted trough 15.2. Current dose of 1500mg q24h will go past AUC goal range. Next trough 11/11 @ 0700.
[2024-11-10] MEDS: Fluticasone Propionate 250 MCG BLST.W.DEV 1 PUFF INHALE ×2 (08:26→19:36)
[2024-11-10] MEDS: 0.9 % Sodium Chloride Flush 3 ML SYRINGE IVFLUSH ×3 (08:27→19:46)
[2024-11-10] MEDS: Famotidine/PF 20 MG/2 ML VIAL IVPUSH (08:27)
[2024-11-10] MEDS: Doxycycline Hyclate 100 MG in 0.9 % Sodium Chloride 250 ML 166.67 MG IV ×2 (08:29→19:45)
[2024-11-10] MEDS: Cholecalciferol (Vitamin D3) 25 MCG TABLET PO (08:31)
[2024-11-10] MEDS: Folic Acid 1 MG TABLET PO (08:31)
[2024-11-10] MEDS: oxyBUTYnin chloride ER 5 MG TAB.ER.24 PO (08:31)
[2024-11-10] MEDS: Ferrous Sulfate 324 MG TABLET.DR PO (08:31)
[2024-11-10] MEDS: Metoprolol Succinate ER 25 MG TAB.ER.24H PO (08:32)
[2024-11-10] MEDS: levETIRAcetam 250 MG TABLET PO ×2 (08:32→21:14)
[2024-11-10] MEDS: FLUoxetine HCl 20 MG CAPSULE PO (08:32)
[2024-11-10] MEDS: Pregabalin 150 MG CAPSULE PO ×3 (08:32→21:14)
[2024-11-10] MEDS: methIMAzole 5 MG TABLET 2.5 MG PO (08:32)
[2024-11-10] MEDS: Aspirin Enteric Coated 81 MG TABLET.DR PO (08:32)
[2024-11-10] MEDS: Cyanocobalamin (Vitamin B-12) 500 MCG TABLET PO (08:32)
[2024-11-10] MEDS: Docusate Sodium 100 MG CAPSULE PO ×2 (08:32→21:14)
[2024-11-10] MEDS: Clopidogrel Bisulfate 75 MG TABLET PO (08:32)
[2024-11-10] MEDS: polyethylene glycoL 3350 17 GM POWD.PACK PO (08:41)
[2024-11-10] MEDS: vancomycin HCL 1,250 MG in 0.9 % Sodium Chloride 250 ML 166.67 MG IV (08:44)
[2024-11-10 10:47] LABS: Glucose, Whole Blood 89 mg/dL (60-115)
[2024-11-10] MEDS: cefTRIAXone sodium 1 GM VIAL IVPUSH (11:34)
[2024-11-10 11:46] LABS: Glucose, Whole Blood 100 mg/dL (60-115)
--- NOTE | 2024-11-10 12:03 | HO.PM.IMPN ---
Subjective Subjective Date of Service: 11/10/24 Interval History: minimal cough no fever Review of Systems Review of Systems: Yes all other systems are reviewed and are negative Physical Exam Vital Signs: Vital Signs: Last Vital Signs Temp 97.0 F 11/10/24 11:16 Pulse 50 11/10/24 11:16 Resp 20 11/10/24 11:16 BP 113/56 L 11/10/24 11:16 Pulse Ox 99 11/10/24 11:16 O2 Del Method Nasal Cannula 11/10/24 11:16 O2 Flow Rate 2 11/10/24 11:16 Oxygen Flow Rate 2 11/07/24 19:35 BMI result Body Mass Index 31.3 Gen: in no acute distress HEENT: sclera anicteric, moist mucus membranes Neck: supple Lungs: clear to auscultation bilaterally Heart: regular rate and rhythm, no murmurs Abd: soft, non-tender, non-distended Ext: no edema Skin: warm/well-perfused Neuro: alert, chronic facial droop and L-sided weakness Psych: impaired insight Objective Data Active Medications Albuterol Sulfate (Albuterol Sulfate (0.083%) 2.5 Mg/3 Ml Vial.Rocio) 2.5 mg INHALE Q6H PRN PRN Reason: Shortness Of Breath Or Wheezing Aspirin (Aspirin Enteric Coated 81 Mg Tablet.) 81 mg PO DAILY [facility] Last Admin: 11/10/24 08:32 Dose: 81 mg Documented By: BREE Atorvastatin Calcium (Atorvastatin Calcium 80 Mg Tablet) 80 mg PO BEDTIME [facility] Last Admin: 11/09/24 21:25 Dose: 80 mg Documented By: MEHRDAD Ceftriaxone Sodium (Ceftriaxone Sodium 1 Gm Vial) 1 gm IVPUSH Q24H [facility] Last Admin: 11/10/24 11:34 Dose: 1 gm Documented By: BREE Clopidogrel Bisulfate (Clopidogrel Bisulfate 75 Mg Tablet) 75 mg PO DAILY [facility] Last Admin: 11/10/24 08:32 Dose: 75 mg Documented By: BREE Cyanocobalamin (Cyanocobalamin (Vitamin B-12) 500 Mcg Tablet) 500 mcg PO DAILY [facility] Last Admin: 11/10/24 08:32 Dose: 500 mcg Documented By: BREE Dextrose (Dextrose 50 % 25 Gm/50 Ml Syringe) 25 gm IVPUSH Q15M PRN; Protocol PRN Reason: per Hypoglycemia Standing Ord. Docusate Sodium (Docusate Sodium 100 Mg Capsule) 100 mg PO BID [facility] Last Admin: 11/10/24 08:32 Dose: 100 mg Documented By: BREE Enoxaparin Sodium (Enoxaparin Sodium 40 Mg/0.4 Ml Syringe) 40 mg SUBCUT Q24H [facility] Last Admin: 11/09/24 16:21 Dose: 40 mg Documented By: BREE Famotidine (Famotidine/Pf 20 Mg/2 Ml Vial) 20 mg IVPUSH DAILY [facility] Last Admin: 11/10/24 08:27 Dose: 20 mg Documented By: BREE Ferrous Sulfate (Ferrous Sulfate 324 Mg Tablet.Dr) 324 mg PO DAILY [facility] Last Admin: 11/10/24 08:31 Dose: 324 mg Documented By: BREE Fluoxetine HCl (Fluoxetine Hcl 20 Mg Capsule) 20 mg PO DAILY [facility] Last Admin: 11/10/24 08:32 Dose: 20 mg Documented By: BREE Fluticasone Propionate (Fluticasone Propionate 250 Mcg Blst.W.Dev) 1 puff INHALE RBID [facility] Last Admin: 11/10/24 08:26 Dose: 1 puff Documented By: KARI Folic Acid (Folic Acid 1 Mg Tablet) 1 mg PO DAILY [facility] Last Admin: 11/10/24 08:31 Dose: 1 mg Documented By: BREE Glucose (Glucose Gel 15 Gm Gel..Gram.) 15 gm PO Q15M PRN; Protocol PRN Reason: per Hypoglycemia Standing Ord. Doxycycline Hyclate 100 mg/ (Sodium Chloride) 250 mls @ 166.67 mls/hr IV Q12H [facility] Last Infusion: 11/10/24 10:05 Dose: Infused Documented By: BREE Insulin Human Lispro (Insulin Lispro 100 Unit/Ml 3 Ml Vial) 0 unit SUBCUT QIDACHS [facility]; Protocol Last Admin: 11/10/24 11:17 Dose: Not Given Documented By: BREE Non-Admin Reason: No Insulin Coverage Levetiracetam (Levetiracetam 250 Mg Tablet) 250 mg PO BID [facility] Last Admin: 11/10/24 08:32 Dose: 250 mg Documented By: BREE Methimazole (Methimazole 5 Mg Tablet) 2.5 mg PO DAILY [facility] Last Admin: 11/10/24 08:32 Dose: 2.5 mg Documented By: BREE Metoprolol Succinate (Metoprolol Succinate Er 25 Mg Tab.Er.24h) 25 mg PO DAILY [facility]; Protocol Last Admin: 11/10/24 08:32 Dose: 25 mg Documented By: BREE Ondansetron HCl (Ondansetron Hcl 4 Mg/2 Ml Vial) 4 mg IVPUSH Q8H PRN PRN Reason: Nausea and Vomiting Oxybutynin Chloride (Oxybutynin Chloride Er 5 Mg Tab.Er.24) 5 mg PO DAILY [facility] Last Admin: 11/10/24 08:31 Dose: 5 mg Documented By: BREE Polyethylene Glycol (Polyethylene Glycol 3350 17 Gm Powd.Pack) 17 gm PO DAILY [facility] Last Admin: 11/10/24 08:41 Dose: 17 gm Documented By: BREE Pregabalin (Pregabalin 150 Mg Capsule) 150 mg PO TID [facility] Last Admin: 11/10/24 08:32 Dose: 150 mg Documented By: BREE Sodium Chloride (0.9 % Sodium Chloride Flush 3 Ml Syringe) 3 ml IVFLUSH QSHIFT [facility] Last Admin: 11/10/24 11:34 Dose: 3 ml Documented By: BREE Trazodone HCl (Trazodone Hcl 100 Mg Tablet) 100 mg PO BEDTIME [facility] Last Admin: 11/09/24 21:25 Dose: 100 mg Documented By: MEHRDAD Vitamin D (Cholecalciferol (Vitamin D3) 25 Mcg Tablet) 25 mcg PO DAILY [facility] Last Admin: 11/10/24 08:31 Dose: 25 mcg Documented By: BREE Zinc Oxide (Zinc Oxide 20% Ointment 28.35 Gm Tube) 1 appl TOPICAL DAILY PRN; Protocol PRN Reason: Wound Healing Labs 11/10/24 06:59 11/10/24 06:59 Labs: Laboratory Results - last 24 hr 11/09/24 11/09/24 11/09/24 11:28 16:05 20:24 MCV MCH MCHC RDW Plt Count MPV Absolute Nucleated RBC Nucleated RBC % (auto) Anion Gap 12 Estim Creat Clear Calc 55.1 Estimated GFR > 60 POC Glucose 136 H 105 Random Glucose 129 H Calcium 9.0 Iron 17 L TIBC 220 L % Saturation 8 L Unsat Iron Binding 203 Ferritin 54 Lactate Dehydrogenase 173 B-Natriuretic Peptide 722 H Vitamin B12 1827 H Folate 15.1 Procalcitonin 0.44 Random Vancomycin Blood Type O Positive Antibody Screen NEGATIVE 11/10/24 11/10/24 11/10/24 06:59 07:11 11:15 MCV 82.7 MCH 25.7 L MCHC 31.1 RDW 16.8 H Plt Count 144 L MPV 11.3 Absolute Nucleated RBC 0.000 Nucleated RBC % (auto) 0.0 Anion Gap 11 L Estim Creat Clear Calc 53.0 Estimated GFR > 60 POC Glucose 89 100 Random Glucose 88 Calcium 8.7 Iron TIBC % Saturation Unsat Iron Binding Ferritin Lactate Dehydrogenase B-Natriuretic Peptide Vitamin B12 Folate Procalcitonin Random Vancomycin 14.1 L Blood Type Antibody Screen Microbiology Microbiology Results: Microbiology 11/07/24 Unknown Urine Culture - Preliminary Urine Catheterized - Curry Catheter Yeast 11/07/24 11:57 Blood Culture - Final Blood - Venous Coag negative Staphylococcus 11/07/24 11:54 Blood Culture - Final Blood - Venous Coag negative Staphylococcus 11/08/24 12:45 Blood Culture - Preliminary Blood - Venous No growth after 24 hours. 11/08/24 12:44 Blood Culture - Preliminary Blood - Venous No growth after 24 hours. Assessment and Plan (1) Septic shock: Status: Acute Plan d3 for 78yo F resident of [facility] Living with L hemiparesis from prior CVA, COPD on 2L home O2, HTN, HLD, HFpEF, aortic stenosis, seizures, and dementia presented with AMS and hypoxia, found to be hypotensive, admitted to ICU for septic shock from suspected UTI vs PNA though also growing GPCs in blood cultures weaned off pressors 11/08/24 then stepped down to telemetry septic shock - possible sources include lung + urinary tract; on ceftriaxone + doxycycline. 2/2 BCx growing Staph epi from 11/07 and suspect these are contaminants; repeat BCx 11/08 pending; d/c MRSA coverage with vancomycin iron deficiency anemia - replete iron acute encephalopathy due to sepsis - resolved, baseline neuro deficits due to prior stroke + dementia chronic hypercapnic/chypoxic resp failure - home O2 with goal SaO2 no greater than 92% prior CVA - continue ASA + clopidogrel + atorvastatin hyperthyroidism - methimazole seizure disorder - levetiracetam neuropathy - pregabalin DM2 - shae-dose lispro mood disorder - trazodone + fluoxetine VTE prophylaxis - enoxaparin dispo - eventual return to [facility] In my clinical judgment, the patient requires continued inpatient hospitalization for the following reasons: IV ABX Total time managing care of this patient today: 40 minutes. Quality Stroke Does the patient have a stroke diagnosis?: No VTE Prior VTE?: No VTE Risk Level:: Medical - low VTE Device Contraindication: N/A - Device Ordered VTE Drug Contraindication: N/A - Med Ordered
[2024-11-10] MEDS: Enoxaparin Sodium 40 MG/0.4 ML SYRINGE SUBCUT (16:03)
[2024-11-10 16:56] LABS: Glucose, Whole Blood 134 mg/dL (60-115)
[2024-11-10 20:55] LABS: Glucose, Whole Blood 111 mg/dL (60-115)
[2024-11-10] MEDS: traZODone HCL 100 MG TABLET PO (21:14)
[2024-11-10] MEDS: Atorvastatin Calcium 80 MG TABLET PO (21:14)
[2024-11-11] VITALS (10 sets, daily range): BP systolic 102–135; BP diastolic 50–59; PULSE 47–65; RESP 16–18; TEMP 35.8–37.1; O2SAT 95–100
[2024-11-11 07:22] LABS: Glucose, Whole Blood 89 mg/dL (60-115)
[2024-11-11 07:24] LABS: Hematocrit 27.9 % (37.0-47.0); Hemoglobin 8.7 g/dl (12.0-16.0); Mean Corpuscular HGB Conc 31.2 g/dl (31.0-35.0); Mean Corpuscular Volume 83.5 fL (80.0-98.0); Mean Platelet Volume 11.2 fL (9.4-12.3); Platelet Count 145 X10*3/uL (160-400); Red Blood Count 3.34 X10*6/uL (4.20-5.50); Red Cell Distribution Width 17.1 % (11.0-16.0); White Blood Count 6.5 X10*3/uL (4.8-10.8)
[2024-11-11 07:47] LABS: Anion Gap 9 (12-20); Blood Urea Nitrogen 13 mg/dL (9-16); Calcium 8.4 mg/dL (8.4-10.2); Carbon Dioxide 32 mmol/L (22-29); Chloride 110 mmol/L (96-108); Creatinine Clr Calc Pharmacy 46.2; Estimated Glomerular Filt Rate 58; Glucose Random 91 mg/dL (60-115); Potassium 3.8 mmol/L (3.3-5.1); Sodium 147 mmol/L (135-145)
[2024-11-11 08:02] LABS: Procalcitonin 0.16 ng/mL
[2024-11-11 08:11] LABS: Venous Blood Gas Refer to POC result
[2024-11-11 08:13] LABS: VBG Base Excess 14.3 mmol/L; VBG HCO3 41 mmol/L (22-26); VBG pCO2 66 mmHg; VBG pO2 78 mmHg
[2024-11-11] MEDS: Fluticasone Propionate 250 MCG BLST.W.DEV 1 PUFF INHALE (08:31)
[2024-11-11] MEDS: 0.9 % Sodium Chloride Flush 3 ML SYRINGE IVFLUSH ×2 (08:49→11:39)
[2024-11-11] MEDS: Doxycycline Hyclate 100 MG in 0.9 % Sodium Chloride 250 ML 166.67 MG IV ×2 (08:50→20:07)
[2024-11-11] MEDS: levETIRAcetam 250 MG TABLET PO (08:51)
[2024-11-11] MEDS: Docusate Sodium 100 MG CAPSULE PO (08:51)
[2024-11-11] MEDS: Ferrous Sulfate 324 MG TABLET.DR PO (08:51)
[2024-11-11] MEDS: Cyanocobalamin (Vitamin B-12) 500 MCG TABLET PO (08:51)
[2024-11-11] MEDS: Cholecalciferol (Vitamin D3) 25 MCG TABLET PO (08:51)
[2024-11-11] MEDS: Clopidogrel Bisulfate 75 MG TABLET PO (08:51)
[2024-11-11] MEDS: Folic Acid 1 MG TABLET PO (08:51)
[2024-11-11] MEDS: Aspirin Enteric Coated 81 MG TABLET.DR PO (08:51)
[2024-11-11] MEDS: Pregabalin 150 MG CAPSULE PO ×3 (08:51→20:08)
[2024-11-11] MEDS: Famotidine/PF 20 MG/2 ML VIAL IVPUSH (08:51)
[2024-11-11] MEDS: polyethylene glycoL 3350 17 GM POWD.PACK PO (08:51)
[2024-11-11] MEDS: oxyBUTYnin chloride ER 5 MG TAB.ER.24 PO (08:51)
[2024-11-11] MEDS: methIMAzole 5 MG TABLET 2.5 MG PO (08:52)
[2024-11-11] MEDS: FLUoxetine HCl 20 MG CAPSULE PO (08:52)
[2024-11-11] MEDS: Dextrose 5 % 1,000 ML 70 ML IVCONT (09:15)
--- NOTE | 2024-11-11 10:44 | MHC.CLN ---
F/U PT WITH INCREASED RISK R/T PRESSURE INJURY DIET ADVANCED TO 1800DM CARDIAC GRD/MS WITH NT LIQ RECOMMEND ADDING NUTRITION SUPPLEMENT TO PROMOTE WOUND HEALING ENSURE MAX BID TO PROVIDE 300KCALS, 60G PROTEIN MONITOR PO INTAKE AND ENCOURAGE SUPPLEMENT
[2024-11-11 10:58] LABS: Glucose, Whole Blood 122 mg/dL (60-115)
[2024-11-11] MEDS: cefTRIAXone sodium 1 GM VIAL IVPUSH (11:38)
--- NOTE | 2024-11-11 12:54 | HO.PM.IMPN ---
Subjective Subjective Date of Service: 11/11/24 Interval History: cough improving Na creeping up Review of Systems Review of Systems: Yes all other systems are reviewed and are negative Physical Exam Vital Signs: Vital Signs: Last Vital Signs Temp 98.4 F 11/11/24 11:13 Pulse 65 11/11/24 11:13 Resp 16 11/11/24 11:13 BP 124/58 L 11/11/24 11:13 Pulse Ox 100 11/11/24 11:13 O2 Del Method Nasal Cannula 11/11/24 11:13 O2 Flow Rate 2 11/11/24 11:13 Oxygen Flow Rate 2 11/07/24 19:35 BMI result Body Mass Index 31.3 Gen: in no acute distress HEENT: sclera anicteric, moist mucus membranes Neck: supple Lungs: clear to auscultation bilaterally Heart: regular rate and rhythm, no murmurs Abd: soft, non-tender, non-distended Ext: no edema Skin: warm/well-perfused Neuro: alert, chronic facial droop and L-sided weakness Psych: impaired insight Objective Data Active Medications Albuterol Sulfate (Albuterol Sulfate (0.083%) 2.5 Mg/3 Ml Vial.Neb) 2.5 mg INHALE Q6H PRN PRN Reason: Shortness Of Breath Or Wheezing Aspirin (Aspirin Enteric Coated 81 Mg Tablet.) 81 mg PO DAILY [facility] Last Admin: 11/11/24 08:51 Dose: 81 mg Documented By: BREE Atorvastatin Calcium (Atorvastatin Calcium 80 Mg Tablet) 80 mg PO BEDTIME [facility] Last Admin: 11/10/24 21:14 Dose: 80 mg Documented By: MEHRDAD Ceftriaxone Sodium (Ceftriaxone Sodium 1 Gm Vial) 1 gm IVPUSH Q24H [facility] Last Admin: 11/11/24 11:38 Dose: 1 gm Documented By: BREE Clopidogrel Bisulfate (Clopidogrel Bisulfate 75 Mg Tablet) 75 mg PO DAILY [facility] Last Admin: 11/11/24 08:51 Dose: 75 mg Documented By: BREE Cyanocobalamin (Cyanocobalamin (Vitamin B-12) 500 Mcg Tablet) 500 mcg PO DAILY [facility] Last Admin: 11/11/24 08:51 Dose: 500 mcg Documented By: BREE Dextrose (Dextrose 50 % 25 Gm/50 Ml Syringe) 25 gm IVPUSH Q15M PRN; Protocol PRN Reason: per Hypoglycemia Standing Ord. Docusate Sodium (Docusate Sodium 100 Mg Capsule) 100 mg PO BID [facility] Last Admin: 11/11/24 08:51 Dose: 100 mg Documented By: BREE Enoxaparin Sodium (Enoxaparin Sodium 40 Mg/0.4 Ml Syringe) 40 mg SUBCUT Q24H [facility] Last Admin: 11/10/24 16:03 Dose: 40 mg Documented By: BREE Famotidine (Famotidine/Pf 20 Mg/2 Ml Vial) 20 mg IVPUSH DAILY [facility] Last Admin: 11/11/24 08:51 Dose: 20 mg Documented By: BREE Ferrous Sulfate (Ferrous Sulfate 324 Mg Tablet.Dr) 324 mg PO DAILY [facility] Last Admin: 11/11/24 08:51 Dose: 324 mg Documented By: BREE Fluoxetine HCl (Fluoxetine Hcl 20 Mg Capsule) 20 mg PO DAILY [facility] Last Admin: 11/11/24 08:52 Dose: 20 mg Documented By: BREE Fluticasone Propionate (Fluticasone Propionate 250 Mcg Blst.W.Dev) 1 puff INHALE RBID [facility] Last Admin: 11/11/24 08:31 Dose: 1 puff Documented By: KARI Folic Acid (Folic Acid 1 Mg Tablet) 1 mg PO DAILY [facility] Last Admin: 11/11/24 08:51 Dose: 1 mg Documented By: BREE Glucose (Glucose Gel 15 Gm Gel..Gram.) 15 gm PO Q15M PRN; Protocol PRN Reason: per Hypoglycemia Standing Ord. Doxycycline Hyclate 100 mg/ (Sodium Chloride) 250 mls @ 166.67 mls/hr IV Q12H [facility] Last Infusion: 11/11/24 10:39 Dose: Infused Documented By: BREE Dextrose (D5w) 1,000 mls @ 70 mls/hr IVCONT .[id number] [facility] Stop: 11/12/24 08:47 Last Admin: 11/11/24 09:15 Dose: 70 mls/hr Documented By: BREE Insulin Human Lispro (Insulin Lispro 100 Unit/Ml 3 Ml Vial) 0 unit SUBCUT QIDACHS [facility]; Protocol Last Admin: 11/11/24 11:09 Dose: Not Given Documented By: BREE Non-Admin Reason: No Insulin Coverage Levetiracetam (Levetiracetam 250 Mg Tablet) 250 mg PO BID [facility] Last Admin: 11/11/24 08:51 Dose: 250 mg Documented By: BREE Methimazole (Methimazole 5 Mg Tablet) 2.5 mg PO DAILY [facility] Last Admin: 11/11/24 08:52 Dose: 2.5 mg Documented By: BREE Metoprolol Succinate (Metoprolol Succinate Er 25 Mg Tab.Er.24h) 25 mg PO DAILY [facility]; Protocol Last Admin: 11/11/24 09:56 Dose: Not Given Documented By: BREE Non-Admin Reason: Decreased Heart Rate Ondansetron HCl (Ondansetron Hcl 4 Mg/2 Ml Vial) 4 mg IVPUSH Q8H PRN PRN Reason: Nausea and Vomiting Oxybutynin Chloride (Oxybutynin Chloride Er 5 Mg Tab.Er.24) 5 mg PO DAILY [facility] Last Admin: 11/11/24 08:51 Dose: 5 mg Documented By: BREE Polyethylene Glycol (Polyethylene Glycol 3350 17 Gm Powd.Pack) 17 gm PO DAILY [facility] Last Admin: 11/11/24 08:51 Dose: 17 gm Documented By: BREE Pregabalin (Pregabalin 150 Mg Capsule) 150 mg PO TID [facility] Last Admin: 11/11/24 08:51 Dose: 150 mg Documented By: BREE Sodium Chloride (0.9 % Sodium Chloride Flush 3 Ml Syringe) 3 ml IVFLUSH QSHIFT [facility] Last Admin: 11/11/24 11:39 Dose: 3 ml Documented By: BREE Trazodone HCl (Trazodone Hcl 100 Mg Tablet) 100 mg PO BEDTIME [facility] Last Admin: 11/10/24 21:14 Dose: 100 mg Documented By: MEHRDAD Vitamin D (Cholecalciferol (Vitamin D3) 25 Mcg Tablet) 25 mcg PO DAILY [facility] Last Admin: 11/11/24 08:51 Dose: 25 mcg Documented By: BREE Zinc Oxide (Zinc Oxide 20% Ointment 28.35 Gm Tube) 1 appl TOPICAL DAILY PRN; Protocol PRN Reason: Wound Healing Labs 11/11/24 06:54 11/11/24 06:54 Labs: Laboratory Results - last 24 hr 11/10/24 11/10/24 11/11/24 16:02 20:51 06:54 MCV 83.5 MCH 26.0 L MCHC 31.2 RDW 17.1 H Plt Count 145 L MPV 11.2 Absolute Nucleated RBC 0.000 Nucleated RBC % (auto) 0.0 VBG pH VBG pCO2 VBG pO2 VBG HCO3 VBG O2 Saturation VBG Base Excess Anion Gap 9 L Estim Creat Clear Calc 46.2 Estimated GFR 58 POC Glucose 134 H 111 Random Glucose 91 Calcium 8.4 Procalcitonin 0.16 11/11/24 11/11/24 11/11/24 07:16 08:09 10:55 MCV MCH MCHC RDW Plt Count MPV Absolute Nucleated RBC Nucleated RBC % (auto) VBG pH 7.40 VBG pCO2 66 VBG pO2 78 VBG HCO3 41 H VBG O2 Saturation 98.0 VBG Base Excess 14.3 Anion Gap Estim Creat Clear Calc Estimated GFR POC Glucose 89 122 H Random Glucose Calcium Procalcitonin Microbiology Microbiology Results: Microbiology 11/07/24 Unknown Urine Culture - Final Urine Catheterized - Curry Catheter Judy albicans 11/08/24 12:45 Blood Culture - Preliminary Blood - Venous No growth after 48 hours. 11/08/24 12:44 Blood Culture - Preliminary Blood - Venous No growth after 48 hours. Assessment and Plan (1) Septic shock: Status: Acute Plan d4 for 78yo F resident of [facility] Living with L hemiparesis from prior CVA, COPD on 2L home O2, HTN, HLD, HFpEF, aortic stenosis, seizures, and dementia presented with AMS and hypoxia, found to be hypotensive, admitted to ICU for septic shock from suspected UTI vs PNA though also growing GPCs in blood cultures weaned off pressors 11/08/24 then stepped down to telemetry septic shock - suspect due to pneumonia; on ceftriaxone + doxycycline 11/08-. 2/ BCx growing Staph epi from 11/07 and suspect these are contaminants; repeat BCx 11/08 negative; PCT coming down hyperNa - replete free water deficit 1700 mL over next 24h with IV D5W; also encourage PO water intake; repeat BMP in AM iron deficiency anemia - replete iron acute encephalopathy due to sepsis - resolved, baseline neuro deficits due to prior stroke + dementia chronic hypercapnic/chypoxic resp failure - home O2 with goal SaO2 no greater than 92% prior CVA - continue ASA + clopidogrel + atorvastatin hyperthyroidism - methimazole seizure disorder - levetiracetam neuropathy - pregabalin DM2 - shae-dose lispro mood disorder - trazodone + fluoxetine VTE prophylaxis - enoxaparin dispo - eventual return to [facility] In my clinical judgment, the patient requires continued inpatient hospitalization for the following reasons: IV ABX, hyperNa Total time managing care of this patient today: 40 minutes. Quality Stroke Does the patient have a stroke diagnosis?: No VTE Prior VTE?: No VTE Risk Level:: Medical - low VTE Device Contraindication: N/A - Device Ordered VTE Drug Contraindication: N/A - Med Ordered
--- NOTE | 2024-11-11 14:46 | MHC.SLORD ---
Speech Language Pathology Order Status: Pt not seen for dysphagia tx today, will be seen 11/12/24.
[2024-11-11] MEDS: Enoxaparin Sodium 40 MG/0.4 ML SYRINGE SUBCUT (15:47)
[2024-11-11 16:05] LABS: Glucose, Whole Blood 103 mg/dL (60-115)
[2024-11-11 19:31] LABS: Glucose, Whole Blood 108 mg/dL (60-115)
[2024-11-11] MEDS: traZODone HCL 100 MG TABLET PO (20:08)
[2024-11-11] MEDS: Atorvastatin Calcium 80 MG TABLET PO (20:08)
[2024-11-11] MEDS: levETIRAcetam Oral Soln 500 MG/5 ML 250 MG PO (21:05)
[2024-11-11] MEDS: Docusate Sodium 100 MG/10 ML LIQUID PO (21:05)
[2024-11-11] MEDS: Dextrose 5 % 500 ML 70 ML IVCONT (22:30)
[2024-11-12] VITALS (7 sets, daily range): BP systolic 109–126; BP diastolic 49–62; PULSE 48–53; RESP 16–20; TEMP 35.9–36.9; O2SAT 96–100
[2024-11-12] MEDS: 0.9 % Sodium Chloride Flush 3 ML SYRINGE IVFLUSH ×4 (00:40→21:33)
[2024-11-12 06:46] LABS: Anion Gap 11 (12-20); Blood Urea Nitrogen 12 mg/dL (9-16); Calcium 8.3 mg/dL (8.4-10.2); Carbon Dioxide 27 mmol/L (22-29); Chloride 107 mmol/L (96-108); Creatinine Clr Calc Pharmacy 51.1; Estimated Glomerular Filt Rate > 60; Glucose Random 105 mg/dL (60-115); Potassium 4.2 mmol/L (3.3-5.1); Sodium 141 mmol/L (135-145)
[2024-11-12 07:44] LABS: Glucose, Whole Blood 90 mg/dL (60-115)
[2024-11-12 08:54] LABS: VBG Base Excess 13.1 mmol/L; VBG HCO3 41 mmol/L (22-26); VBG pCO2 74 mmHg; VBG pH 7.35 (7.32-7.43); VBG pO2 42 mmHg
[2024-11-12 09:04] LABS: Venous Blood Gas Refer to POC result
[2024-11-12] MEDS: levETIRAcetam Oral Soln 500 MG/5 ML 250 MG PO ×2 (09:20→21:13)
[2024-11-12] MEDS: oxyBUTYnin chloride ER 5 MG TAB.ER.24 PO (09:22)
[2024-11-12] MEDS: Docusate Sodium 100 MG/10 ML LIQUID PO ×2 (09:22→21:15)
[2024-11-12] MEDS: Famotidine/PF 20 MG/2 ML VIAL IVPUSH (09:22)
[2024-11-12] MEDS: Clopidogrel Bisulfate 75 MG TABLET PO (09:23)
[2024-11-12] MEDS: Folic Acid 1 MG TABLET PO (09:23)
[2024-11-12] MEDS: Aspirin Enteric Coated 81 MG TABLET.DR PO (09:23)
[2024-11-12] MEDS: FLUoxetine HCl 20 MG CAPSULE PO (09:23)
[2024-11-12] MEDS: Cholecalciferol (Vitamin D3) 25 MCG TABLET PO (09:23)
[2024-11-12] MEDS: Metoprolol Succinate ER 25 MG TAB.ER.24H PO (09:23)
[2024-11-12] MEDS: Ferrous Sulfate 324 MG TABLET.DR PO (09:23)
[2024-11-12] MEDS: Pregabalin 150 MG CAPSULE PO ×3 (09:24→21:15)
[2024-11-12] MEDS: Cyanocobalamin (Vitamin B-12) 500 MCG TABLET PO (09:24)
[2024-11-12] MEDS: methIMAzole 5 MG TABLET 2.5 MG PO (09:24)
[2024-11-12] MEDS: Doxycycline Hyclate 100 MG in 0.9 % Sodium Chloride 250 ML 166.67 MG IV (09:25)
[2024-11-12] MEDS: polyethylene glycoL 3350 17 GM POWD.PACK PO (10:55)
[2024-11-12 11:05] LABS: Glucose, Whole Blood 112 mg/dL (60-115)
--- NOTE | 2024-11-12 12:45 | MHC.SL.SWA ---
Risk of Aspiration Due to: History of Pneumonia Reduced Cognition Dysphasia Diet Status: UPGRADE liquids Liquid Consistency and Strategies for Safe Swallow: Liquid Intake Recommendation: Thin Liquid Intake Strategies: Small Sips No Straws Solid Food Consistency: Dietary Recommendations: Grnd/Mech Altered (NDD2) Additional Modifications to Solid Foods: Patient will need 1-1 feed. Patient can orally hold food, monitor for swallow before presenting more food. Alternate liquids and solids, liquids by controlled cup sip, no straws. Oral Medication Intake: Crushed with Puree Please contact the pharmacy regarding appropriate crushable or liquid drug formulations that are available whenever modified delivery is recommended. Compensatory Strategies and Precautions to be Taken for Safe Swallow: Sitting Upright (90 deg) Small Bites and Sips Alternate Liquids/Solids Rate of Ingestion Change Oral Check Supervision While Eating and Drinking for Safe Swallow: Total Assistance (1:1) Foods to Avoid: too large pieces of food, mixed consistencies, difficult to chew solids. Swallowing Recommended Treatments: Compens. Strategy Educat. Recommendation for Speech: Inpatient Speech Therapy Comment: Recommend patient UPGRADE to THIN liquids (via controlled self-administered cup sip, NO STRAWS). Continue w/ GROUND/MECH ALTERED (NDD2) solids and meds CRUSHED in PUREE. Continue 1-1 assist, encourage pt to self administer cup sips. Ensure pt awake/alert prior to PO. At times pt benefits from reminders to swallow, otherwise holds bolus in mouth for long period (>2 minutes). TRUCKER to continue to follow to ensure toleration of diet and upgrade if/when warranted. Record Press Tender Clinican/Clinical Fellow: No Supervisory Statement: I have reviewed and agree with the student/clinical fellow's documentation: N/A Speech Language Pathologist: Harika Foley M.A., [facility]
[2024-11-12] MEDS: cefTRIAXone sodium 1 GM VIAL IVPUSH (13:02)
--- NOTE | 2024-11-12 15:49 | P.PNIM_ITS ---
Subjective Subjective Date of Service: 11/12/24 Interval History: Notes some improvement overnight. Speech eval noted Review of Systems Denies chest pain Denies shortness of breath Denies nausea vomiting diarrhea Denies fever chills Physical Exam 2 Vital Signs: Vital Signs: Last Vital Signs Temp 98.5 F 11/12/24 15:29 Pulse 51 11/12/24 15:29 Resp 18 11/12/24 15:29 BP 123/62 11/12/24 15:29 Pulse Ox 100 11/12/24 15:29 O2 Del Method Nasal Cannula 11/12/24 15:29 O2 Flow Rate 2 11/12/24 15:29 Oxygen Flow Rate 2 11/07/24 19:35 BMI result Body Mass Index 31.3 Const: Other: Awake alert minimal verbalization Resp: Other: Clear to auscultation bilaterally no rales rhonchi or wheezes Cardio: Other: No S4; positive S1-S2; no S3 murmurs rubs or gallops GI: Other: Soft nontender nondistended normoactive bowel sounds Extrem: Other: No edema bilaterally Objective Data Active Medications Albuterol Sulfate (Albuterol Sulfate (0.083%) 2.5 Mg/3 Ml Vial.Neb) 2.5 mg INHALE Q6H PRN PRN Reason: Shortness Of Breath Or Wheezing Aspirin (Aspirin Enteric Coated 81 Mg Tablet.) 81 mg PO DAILY [facility] Last Admin: 11/12/24 09:23 Dose: 81 mg Documented By: JOSSE Atorvastatin Calcium (Atorvastatin Calcium 80 Mg Tablet) 80 mg PO BEDTIME [facility] Last Admin: 11/11/24 20:08 Dose: 80 mg Documented By: ABHIJIT Ceftriaxone Sodium (Ceftriaxone Sodium 1 Gm Vial) 1 gm IVPUSH Q24H [facility] Last Admin: 11/12/24 13:02 Dose: 1 gm Documented By: JOSSE Clopidogrel Bisulfate (Clopidogrel Bisulfate 75 Mg Tablet) 75 mg PO DAILY [facility] Last Admin: 11/12/24 09:23 Dose: 75 mg Documented By: JOSSE Cyanocobalamin (Cyanocobalamin (Vitamin B-12) 500 Mcg Tablet) 500 mcg PO DAILY [facility] Last Admin: 11/12/24 09:24 Dose: 500 mcg Documented By: JOSSE Dextrose (Dextrose 50 % 25 Gm/50 Ml Syringe) 25 gm IVPUSH Q15M PRN; Protocol PRN Reason: per Hypoglycemia Standing Ord. Docusate Sodium (Docusate Sodium 100 Mg/10 Ml Liquid) 100 mg PO BID [facility] Last Admin: 11/12/24 09:22 Dose: 100 mg Documented By: JOSSE Doxycycline Monohydrate (Doxycycline Monohydrate 100 Mg Capsule) 100 mg PO Q12H [facility] Enoxaparin Sodium (Enoxaparin Sodium 40 Mg/0.4 Ml Syringe) 40 mg SUBCUT Q24H [facility] Last Admin: 11/11/24 15:47 Dose: 40 mg Documented By: BREE Famotidine (Famotidine/Pf 20 Mg/2 Ml Vial) 20 mg IVPUSH DAILY [facility] Last Admin: 11/12/24 09:22 Dose: 20 mg Documented By: JOSSE Ferrous Sulfate (Ferrous Sulfate 324 Mg Tablet.Dr) 324 mg PO DAILY [facility] Last Admin: 11/12/24 09:23 Dose: 324 mg Documented By: JOSSE Fluoxetine HCl (Fluoxetine Hcl 20 Mg Capsule) 20 mg PO DAILY [facility] Last Admin: 11/12/24 09:23 Dose: 20 mg Documented By: JOSSE Fluticasone Propionate (Fluticasone Propionate 250 Mcg Blst.W.Dev) 1 puff INHALE RBID [facility] Last Admin: 11/12/24 07:40 Dose: Not Given Documented By: KARI Non-Admin Reason: Patient Asleep Folic Acid (Folic Acid 1 Mg Tablet) 1 mg PO DAILY [facility] Last Admin: 11/12/24 09:23 Dose: 1 mg Documented By: JOSSE Glucose (Glucose Gel 15 Gm Gel..Gram.) 15 gm PO Q15M PRN; Protocol PRN Reason: per Hypoglycemia Standing Ord. Insulin Human Lispro (Insulin Lispro 100 Unit/Ml 3 Ml Vial) 0 unit SUBCUT QIDACHS [facility]; Protocol Last Admin: 11/12/24 12:43 Dose: Not Given Documented By: JOSSE Non-Admin Reason: No Insulin Coverage Levetiracetam (Levetiracetam Oral Soln 500 Mg/5 Ml) 250 mg PO BID [facility] Last Admin: 11/12/24 09:20 Dose: 250 mg Documented By: JOSSE Methimazole (Methimazole 5 Mg Tablet) 2.5 mg PO DAILY [facility] Last Admin: 11/12/24 09:24 Dose: 2.5 mg Documented By: JOSSE Metoprolol Succinate (Metoprolol Succinate Er 25 Mg Tab.Er.24h) 25 mg PO DAILY [facility]; Protocol Last Admin: 11/12/24 09:23 Dose: 25 mg Documented By: JOSSE Ondansetron HCl (Ondansetron Hcl 4 Mg/2 Ml Vial) 4 mg IVPUSH Q8H PRN PRN Reason: Nausea and Vomiting Oxybutynin Chloride (Oxybutynin Chloride Er 5 Mg Tab.Er.24) 5 mg PO DAILY [facility] Last Admin: 11/12/24 09:22 Dose: 5 mg Documented By: JOSSE Polyethylene Glycol (Polyethylene Glycol 3350 17 Gm Powd.Pack) 17 gm PO DAILY [facility] Last Admin: 11/12/24 10:55 Dose: 17 gm Documented By: JOSSE Pregabalin (Pregabalin 150 Mg Capsule) 150 mg PO TID [facility] Last Admin: 11/12/24 09:24 Dose: 150 mg Documented By: JOSSE Sodium Chloride (0.9 % Sodium Chloride Flush 3 Ml Syringe) 3 ml IVFLUSH QSHIFT [facility] Last Admin: 11/12/24 09:24 Dose: 3 ml Documented By: JOSSE Trazodone HCl (Trazodone Hcl 100 Mg Tablet) 100 mg PO BEDTIME [facility] Last Admin: 11/11/24 20:08 Dose: 100 mg Documented By: ABHIJIT Vitamin D (Cholecalciferol (Vitamin D3) 25 Mcg Tablet) 25 mcg PO DAILY [facility] Last Admin: 11/12/24 09:23 Dose: 25 mcg Documented By: JOSSE Zinc Oxide (Zinc Oxide 20% Ointment 28.35 Gm Tube) 1 appl TOPICAL DAILY PRN; Protocol PRN Reason: Wound Healing Labs 11/11/24 06:54 11/12/24 06:01 Labs: Laboratory Results - last 24 hr 11/11/24 11/11/24 11/12/24 15:58 19:21 06:01 VBG pH VBG pCO2 VBG pO2 VBG HCO3 VBG O2 Saturation VBG Base Excess Anion Gap 11 L Estim Creat Clear Calc 51.1 Estimated GFR > 60 POC Glucose 103 108 Random Glucose 105 Calcium 8.3 L 11/12/24 11/12/24 11/12/24 07:38 08:49 10:58 VBG pH 7.35 VBG pCO2 74 VBG pO2 42 VBG HCO3 41 H VBG O2 Saturation 68.0 VBG Base Excess 13.1 Anion Gap Estim Creat Clear Calc Estimated GFR POC Glucose 90 112 Random Glucose Calcium Assessment and Plan (1) Pneumonia: Status: Acute (2) Acute hypoxic on chronic hypercapnic respiratory failure: Status: Acute (3) Non-insulin dependent type 2 diabetes mellitus: Status: Acute Plan 78yo F resident of [facility] Living with L hemiparesis from prior CVA, COPD on 2L home O2, HTN, HLD, HFpEF, aortic stenosis, seizures, and dementia presented with AMS and hypoxia, found to be hypotensive, admitted to ICU for septic shock from suspected UTI vs PNA though also growing GPCs in blood cultures weaned off pressors 11/08/24 then stepped down to telemetry 1.Septic shock secondary to pneumonia (sepsis resolved) -ceftriaxone/doxycycline (5) -repeat BCx 11/08 negative; 2.HyperNa -resolve with free water repletion -follow renals/divalents 3.Acute encephalopathy due to sepsis - resolved, baseline neuro deficits due to prior stroke + dementia 3.Seizure disorder -stable well compensated - levetiracetam 4.DM2 -acceptable control on current therapies -lispro correctional scale -adjust as indicated enoxaparin Full code In my clinical judgment, the patient requires continued inpatient hospitalization for the following reasons: IV ABX, hyperNa Quality Stroke Does the patient have a stroke diagnosis?: No VTE Prior VTE?: No VTE Risk Level:: Medical - low VTE Device Contraindication: N/A - Device Ordered VTE Drug Contraindication: N/A - Med Ordered
[2024-11-12 16:36] LABS: Glucose, Whole Blood 91 mg/dL (60-115)
--- NOTE | 2024-11-12 17:27 | HO.WOUND ---
Wound consult: Attempted Arrival to bedside patient was in chair and not able to assess buttock area. Will attempt assessment at future date and time.
--- NOTE | 2024-11-12 17:44 | PC.NURSE ---
patient remains a 1 to 1 feed for all meals. This RN fed her dinner and she did well but a definite delayed swallow with liquids and some food.
--- NOTE | 2024-11-12 18:33 | PC.NURSE ---
Late entry: when administering patients Metoprolol this morning, her heart rate was 62 at the time. For the entire shift her heart rate has been between 45-58
[2024-11-12] MEDS: Enoxaparin Sodium 40 MG/0.4 ML SYRINGE SUBCUT (19:11)
[2024-11-12 20:38] LABS: Glucose, Whole Blood 94 mg/dL (60-115)
[2024-11-12] MEDS: Fluticasone Propionate 250 MCG BLST.W.DEV 1 PUFF INHALE (20:48)
[2024-11-12] MEDS: Doxycycline Monohydrate 100 MG CAPSULE PO (21:15)
[2024-11-12] MEDS: traZODone HCL 100 MG TABLET PO (21:15)
[2024-11-12] MEDS: Atorvastatin Calcium 80 MG TABLET PO (21:16)
[2024-11-13 03:34] VITALS: BP 134/58; PULSE 48; RESP 18; TEMP 36.1; O2SAT 99
[2024-11-13 07:09] VITALS: BP 124/60; PULSE 51; RESP 16; TEMP 36.2; O2SAT 100
[2024-11-13 07:13] LABS: Glucose, Whole Blood 83 mg/dL (60-115)
[2024-11-13] MEDS: Fluticasone Propionate 250 MCG BLST.W.DEV 1 PUFF INHALE (08:20)
[2024-11-13 08:21] VITALS: PULSE 76; RESP 14; O2SAT 92
[2024-11-13] MEDS: Ferrous Sulfate 324 MG TABLET.DR PO (08:48)
[2024-11-13] MEDS: Cholecalciferol (Vitamin D3) 25 MCG TABLET PO (08:48)
[2024-11-13] MEDS: Aspirin Enteric Coated 81 MG TABLET.DR PO (08:48)
[2024-11-13] MEDS: Cyanocobalamin (Vitamin B-12) 500 MCG TABLET PO (08:48)
[2024-11-13] MEDS: Pregabalin 150 MG CAPSULE PO (08:48)
[2024-11-13] MEDS: Folic Acid 1 MG TABLET PO (08:48)
[2024-11-13] MEDS: Clopidogrel Bisulfate 75 MG TABLET PO (08:48)
[2024-11-13] MEDS: FLUoxetine HCl 20 MG CAPSULE PO (08:48)
[2024-11-13] MEDS: methIMAzole 5 MG TABLET 2.5 MG PO (08:48)
[2024-11-13] MEDS: Doxycycline Monohydrate 100 MG CAPSULE PO (08:48)
[2024-11-13] MEDS: levETIRAcetam Oral Soln 500 MG/5 ML 250 MG PO (08:49)
[2024-11-13] MEDS: Docusate Sodium 100 MG/10 ML LIQUID PO (08:49)
[2024-11-13] MEDS: oxyBUTYnin chloride ER 5 MG TAB.ER.24 PO (08:49)
[2024-11-13] MEDS: Famotidine/PF 20 MG/2 ML VIAL IVPUSH (08:49)
[2024-11-13] MEDS: 0.9 % Sodium Chloride Flush 3 ML SYRINGE IVFLUSH (08:49)
[2024-11-13] MEDS: polyethylene glycoL 3350 17 GM POWD.PACK PO (08:50)
--- NOTE | 2024-11-13 10:39 | MHC.CM.PN ---
Addendum entered by Helga Nelson RN 11/13/24 11:38: transport set up for 12:30pm Original Note: IMM 11/13/24 DELIVERED TO PT'S HCP LUCIANO AT 1035AM AT NUMBER ON FILE, LUCIANO AWARE AND AGREEABLE TO ANTICIPATED DC PLAN HOWEVER WOULD LIKE PT HOME AND SETTLED BEFORE 3PM SHE IS HOME ALONE [id number], PT WILL HAVE [facility] FOR BLS TRANSPORT.
--- NOTE | 2024-11-13 10:56 | MHC.CLN ---
F/U PT WITH INCREASED RISK R/T PRESSURE INJURY VARIABLE INTAKE RANGING FROM 25-100% DIET ADVANCED TO 1800DM CARDIAC GRD/MS WITH THIN LIQUIDS PER APPLICATIONS MANAGER RECEIVING ENSURE MAX BID PROVIDES 300KCALS, 60G PROTEIN MONITOR PO INTAKE AND ENCOURAGE SUPPLEMENT
[2024-11-13 11:27] VITALS: BP 120/59; PULSE 50; RESP 17; TEMP 36.3; O2SAT 100
--- NOTE | 2024-11-13 11:28 | P.DS_ITS ---
DS: Providers Provider Date of Service: 11/13/24 Date of admission: 11/07/24 18:20 Date of discharge: 11/13/24 Primary care physician: Cliff Walsh MD Consults: 11/08/24 08:33 Consult to Wound Care Routine Reason for consultation: scattered stage 1 vs scarring and DTI buttocks. Has provider been notified: Yes DS: Diagnosis Discharge Diagnosis (1) Pneumonia: Status: Acute (2) Acute hypoxic on chronic hypercapnic respiratory failure: Status: Acute (3) Non-insulin dependent type 2 diabetes mellitus: Status: Acute DS: Summary Hospital Course Hospital Course: 78-year-old lady with multiple significant comorbidities at baseline, bed- bound/recliner bound with past medical history of CVA with left-sided hemiparesis, COPD on home oxygen, CHF, hypertension, diabetes mellitus, dementia, seizure disorder was brought into the ED due to altered mental status and slight increase in oxygen requirement. In the ED patient was found to be hypotensive, treated with sepsis bolus fluids despite which her systolic blood pressures remains in 80 systolics so MICU was consulted for admission. Labs suggestive of leukocytosis with WBC count 13,000, initial lactate 2.5 which improved down to normal after sepsis bolus fluids, urinalysis showing 20-50 WBCs with leukocyte esterase positive and nitrate negative, CT chest showing mild bilateral lung infiltrates. Bedside echo showing close to normal LV systolic function, thickened mitral and aortic torres, IVC 1.4 cm with mild variation with breathing. Hospital Course Patient admitted to the ICU secondary for pressor requirement. Patient was also started on empiric ceftriaxone and azithromycin. After 48 hours she was successfully weaned off of pressors and transferred to the general medical floor. She continued to improve over the course of her hospitalization and was seen in consultation by speech therapy. Speech recommended round mechanically altered (MDD 2) diet with thin liquids patient one-to-one feeding required. On the day of discharge she is back to baseline and medically acceptable for transfer back to her living situation and complete a course of doxycycline and Ceftin. She can follow up with the PCP next available Time Attestation Discharge Coordination Time (in mins): 35 Quality: Safe Use of Opioids Does Pt have an Active Cancer Diagnosis on the Problem List?: No Quality: Stroke Does the patient have a stroke diagnosis?: No Physical Exam Vital Signs: Vital Signs: Last Vital Signs Temp 97.4 F 11/13/24 11:27 Pulse 50 11/13/24 11:27 Resp 17 11/13/24 11:27 BP 120/59 L 11/13/24 11:27 Pulse Ox 100 11/13/24 11:27 O2 Del Method Nasal Cannula 11/13/24 11:27 O2 Flow Rate 2 11/13/24 11:27 Oxygen Flow Rate 2 11/07/24 19:35 BMI result Body Mass Index 31.3 Const: Other: Awake alert minimal verbalization Resp: Other: Clear to auscultation bilaterally no rales rhonchi or wheezes Cardio: Other: No S4; positive S1-S2; no S3 murmurs rubs or gallops GI: Other: Soft nontender nondistended normoactive bowel sounds Extrem: Other: No edema bilaterally DS: Data Data Completed and Pending Completed studies during hospitalization [Text1]: Procedures Insertion of Endotracheal Airway into Trachea, Via Natural or Artificial Opening (06/02/24) Introduction of Remdesivir Anti-infective into Peripheral Vein, Percutaneous Approach, [employer] 5 (08/02/23) Respiratory Ventilation, Less than 24 Consecutive Hours (06/02/24) Labs on day of discharge: Laboratory Results - last 24 hr 11/12/24 11/12/24 11/13/24 16:31 20:33 07:07 POC Glucose 91 94 83 Preliminary micro results at discharge 11/08/24 12:45 Blood Culture - Preliminary Blood - Venous No growth after 48 hours. 11/08/24 12:44 Blood Culture - Preliminary Blood - Venous No growth after 48 hours. Discharge Plan Discharge Anticipated Discharge Date/Time: 11/13/24 11:12 Patient Disposition: Home Health Service Discharge Diagnosis: Pneumonia Referrals: Cliff Walsh MD [Primary Care Provider] - 1 Week Discharge Medications: New doxycycline monohydrate 100 mg Capsule 100 mg PO Q12H Qty: 14 0RF cefuroxime axetil 500 mg tablet 500 mg PO BID 7 Days Qty: 14 0RF Continued loperamide 2 mg Capsule 2 mg PO QID PRN (Reason: Diarrhea) Rx Instructions: administer after each loose stool until symptoms controlled; do not exceed 8 mg per 24 hrs levetiracetam [Keppra] 250 mg Tablet 250 mg PO BID fluticasone propionate 220 mcg/actuation Hfa Aerosol Inhaler 1 puff INHALATION BID methimazole 5 mg tablet 2.5 mg PO DAILY albuterol sulfate [Ventolin HFA] 90 mcg/actuation HFA aerosol inhaler 2 puff inhalation Q6H PRN (Reason: wheezing) ferrous sulfate 324 mg (65 mg iron) Tablet,Delayed Release (Dr/Ec) 324 mg PO DAILY Qty: 30 0RF furosemide 40 mg tablet 20 mg PO BID docusate sodium 100 mg capsule 100 mg PO BID polyethylene glycol 3350 [Gavilax] 17 gram/dose powder 17 g PO DAILY cranberry extract 250 mg Capsule 250 mg PO DAILY Rx Instructions: administer with a meal glycerin (adult) Suppository [address] DAILY PRN (Reason: Constipation) atorvastatin 80 mg tablet 80 mg PO BEDTIME albuterol sulfate 2.5 mg /3 mL (0.083 %) solution for nebulization 2.5 mg inhalation Q6H PRN (Reason: Shortness Of Breath Or Wheezing) glipizide 5 mg tablet extended release 24hr 5 mg PO DAILY clopidogrel 75 mg tablet 75 mg PO DAILY folic acid 400 mcg tablet 0.4 mg PO DAILY aspirin 81 mg tablet,delayed release (DR/EC) 81 mg PO DAILY acetaminophen 500 mg Tablet 500 mg PO BID cyanocobalamin (vitamin B-12) 500 mcg tablet 500 mcg PO DAILY oxybutynin chloride 5 mg tablet extended release 24hr 5 mg PO DAILY fluoxetine 20 mg capsule 20 mg PO DAILY zinc oxide 20 % Ointment 1 appl TOPICAL DAILY PRN (Reason: Wound Healing) Rx Instructions: apply to buttocks trazodone 100 mg tablet 100 mg PO BEDTIME pregabalin 150 mg capsule 150 mg PO TID cholecalciferol (vitamin D3) 25 mcg (1,000 unit) tablet 25 mcg PO DAILY metoprolol succinate 25 mg tablet extended release 24 hr 25 mg PO DAILY Discharge Orders: Discharge Order (Routine); Ordered 11/13/24 Ordered By: Fernandez Love Diet: Advance to usual diet Activity on Discharge: As tolerated Stand Alone Forms: Patient Portal Discharge page Print Language: Luxembourgish Care Plan Goals: Resume all medicines and therapies as taken prior to hospitalization Health Concerns: Ceftin 500 mg twice daily and doxycycline 100 mg twice daily for 1 week has been added to your regimen Plan of Treatment: Follow up with the PCP next available Assessment: See discharge summary
[2024-11-13 11:59] LABS: Glucose, Whole Blood 100 mg/dL (60-115)
--- NOTE | 2024-11-13 13:07 | MHC.SL.SWA ---
Speech Pathologist Impression: Mild to moderate oral phase dysphagia d/t slowed AP transit coordination and intermittent pocketing, pt follows cues to improve timing of oropharyngeal coordination and clearing of residuals Risk of Aspiration Due to: History of Pneumonia Reduced Cognition Dysphasia Diet Status: Recommend patient UPGRADE to THIN liquids (via controlled self-administered cup sip, STRAWS OK). Continue w/ GROUND/MECH ALTERED (NDD2) solids and meds CRUSHED in PUREE. Continue 1-1 assist, encourage pt to self administer cup sips. Ensure pt awake/alert prior to PO. At times pt benefits from reminders to swallow, otherwise holds bolus in mouth for long period (>2 minutes). HAND SCUDDER to continue to follow to ensure toleration of diet and upgrade if/when warranted. Liquid Consistency and Strategies for Safe Swallow: Liquid Intake Recommendation: Thin Liquid Intake Strategies: Small Sips Solid Food Consistency: Dietary Recommendations: Grnd/Mech Altered (NDD2) Additional Modifications to Solid Foods: Patient will need 1-1 feed. Patient can orally hold food, monitor for swallow before presenting more food. Alternate liquids and solids, liquids by controlled cup sip, no straws. Oral Medication Intake: Crushed with Puree Please contact the pharmacy regarding appropriate crushable or liquid drug formulations that are available whenever modified delivery is recommended. Compensatory Strategies and Precautions to be Taken for Safe Swallow: Sitting Upright (90 deg) Small Bites and Sips Alternate Liquids/Solids Rate of Ingestion Change Oral Check Supervision While Eating and Drinking for Safe Swallow: Total Assistance (1:1) Foods to Avoid: too large pieces of food, mixed consistencies, difficult to chew solids. Swallowing Recommended Treatments: Compens. Strategy Educat. Recommendation for Speech: Inpatient Speech Therapy Comment: Pt is tolerating current diet with thin liquids, straws ok, meds with puree. Recc HAND SCUDDER at facility continue to follow pt in assessing dysphagia. At this time pt considered at low risk for aspiration with current diet and 1:1 feeding, precautions as in place. Frequency/Duration: Date Range for Service Req: Timeline to reassess: Barker Peeler Clinican/Clinical Fellow: No Supervisory Statement: I have reviewed and agree with the student/clinical fellow's documentation: N/A Speech Language Pathologist: Flores Kirby M.S., CCC-HAND SCUDDER
== END 2024-11-13 14:02 | disposition home health service (06) | DRG 871 ==
LOC: HO.ED 17:06 → HO.EDOVER 18:28 → HO.ICU 18:34 → HO.IMC 11-08 23:12
PROVIDERS: Family Medicine; Physician Assistant Medical; Student in an Organized Health Care Education/Training Program; Admitting Provider Internal Medicine Critical Care Medicine; Emergency Provider Emergency Medicine; PCP Internal Medicine; Visit Provider Hospitalist
DX: A41.9 Sepsis, unspecified organism (principal); G93.41 Metabolic encephalopathy; J18.9 Pneumonia, unspecified organism; J96.21 Acute and chronic respiratory failure with hypoxia; R65.21 Severe sepsis with septic shock; J44.0 Chronic obstructive pulmonary disease with (acute) lower respiratory infection; I50.32 Chronic diastolic (congestive) heart failure; I69.354 Hemiplegia and hemiparesis following cerebral infarction affecting left non-dominant side; E87.0 Hyperosmolality and hypernatremia; N39.0 Urinary tract infection, site not specified; E11.42 Type 2 diabetes mellitus with diabetic polyneuropathy; F39 Unspecified mood [affective] disorder; Z99.81 Dependence on supplemental oxygen; G40.909 Epilepsy, unspecified, not intractable, without status epilepticus; I11.0 Hypertensive heart disease with heart failure; E05.90 Thyrotoxicosis, unspecified without thyrotoxic crisis or storm; D50.9 Iron deficiency anemia, unspecified; F03.90 Unspecified dementia, unspecified severity, without behavioral disturbance, psychotic disturbance, mood disturbance, and anxiety; Z74.01 Bed confinement status; Z20.822 Contact with and (suspected) exposure to COVID-19; Z79.51 Long term (current) use of inhaled steroids; Z79.82 Long term (current) use of aspirin; Z79.84 Long term (current) use of oral hypoglycemic drugs; Z79.899 Other long term (current) drug therapy
CPT/HCPCS: 0241U; 36415; 70450; 71045; 71250; 80048; 80053; 80076; 80202; 81001; 82607; 82728; 82746; 82803; 82947; 83540; 83605; 83615; 83690; 83735; 83880; 84100; 84145; 84439; 84443; 84484; 85025; 85027; 85045; 85610; 86850; 86900; 86901; 87040; 87086; 87088; 87205; 92526; 92610; 93005; 94640; 97163; 99285; J0456; J0696; J1271; J1308; J1650; J3370; J3371; J7120; P9047

== ENCOUNTER → 2024-11-07 11:29 | Outpatient (BNV) | payer MEDICARE, MEDICAID, SELFPAY | PROVIDERS: Emergency Provider Emergency Medicine; Visit Provider Radiology Diagnostic Radiology | DX: R94.31 Abnormal electrocardiogram [ECG] [EKG] (principal); A41.9 Sepsis, unspecified organism | CPT/HCPCS: 93010 ==

== ENCOUNTER → 2024-11-07 11:58 | Outpatient (BNV) | payer MEDICARE, MEDICAID, SELFPAY | PROVIDERS: Emergency Provider Emergency Medicine; Visit Provider Internal Medicine Critical Care Medicine | DX: R56.9 Unspecified convulsions (principal); A41.9 Sepsis, unspecified organism; R65.21 Severe sepsis with septic shock; I35.0 Nonrheumatic aortic (valve) stenosis; J69.0 Pneumonitis due to inhalation of food and vomit; T17.900A Unspecified foreign body in respiratory tract, part unspecified causing asphyxiation, initial encounter; J96.01 Acute respiratory failure with hypoxia; J96.12 Chronic respiratory failure with hypercapnia | CPT/HCPCS: 99232 ==

== ENCOUNTER 2024-11-07 18:20 | Outpatient (BNV) | payer MEDICARE, MEDICAID, SELFPAY | END 2024-11-08 01:20 | PROVIDERS: Admitting Provider Internal Medicine Critical Care Medicine; Emergency Provider Emergency Medicine; Visit Provider Internal Medicine Cardiovascular Disease | DX: I49.1 Atrial premature depolarization (principal); R00.1 Bradycardia, unspecified | CPT/HCPCS: 93010 ==

== ENCOUNTER → 2024-11-07 18:20 | Outpatient (BNV) | payer MEDICARE, MEDICAID, SELFPAY | PROVIDERS: Admitting Provider Internal Medicine Critical Care Medicine; Emergency Provider Emergency Medicine; Visit Provider Family Medicine | DX: J96.01 Acute respiratory failure with hypoxia (principal); J96.12 Chronic respiratory failure with hypercapnia; E11.9 Type 2 diabetes mellitus without complications; J18.9 Pneumonia, unspecified organism | CPT/HCPCS: 99232; 99233; 99239 ==

== ENCOUNTER 2025-06-17 12:46 | Inpatient (IN) | payer MEDICARE, MEDICAID, SELFPAY ==
[2025-06-17] VITALS (56 sets, daily range): BP systolic 51–172; BP diastolic 25–97; PULSE 51–140; RESP 13–30; TEMP 32–38.8; O2SAT 86–100; BMI 25.1
--- NOTE | ~2025-06-17 | XR_ITS ---
CLINICAL HISTORY: ET OG TUBE --- Additional Notes or Special Instructions: N R @2034 [facility] WHEN READY 1 view chest x-ray Comparison: CT/REG/NH/SR - CT CHEST WITHOUT IV CONTRAST - 06/17/25 14:52 EST CR/SR - XR CHEST 1 VIEW - 06/17/25 13:45 EST Findings: The lungs are under expanded. The lungs are under expanded. Right upper lobe pulmonary nodule, 1.8 cm projected of the posterior right posterior 4th rib. Endotracheal tube tip 2 cm above the betty. Right internal jugular approach central venous catheter with tip projected over the right atrium. Moderate calcified atherosclerotic disease of the aortic arch. Mild osteopenia. NG tube projected of the epigastric region/stomach. Prior sternotomy. IMPRESSION: 1. Right upper lobe pulmonary nodule, 1.8 cm, projected over the posterior right posterior 4th rib. Please refer to CT of the thorax 06/17/2025. 2. Endotracheal tube tip 2 cm above the betty. 3. Right internal jugular central venous catheter with tip projected over the right atrium. 4. NG tube projected over the epigastric region/stomach. 5. Moderate calcified atherosclerotic disease of the aortic arch. 6. Lungs are under expanded. 7. Prior sternotomy. 8. Mild osteopenia. This document has been electronically signed by: Rahul Reveles MD on 06/17/2025 21:57:28
--- NOTE | ~2025-06-17 | CT_ITS ---
EXAMINATION: CT ABDOMEN PELVIS WITHOUT IV CONTRAST HISTORY: sepsis, KIRAN COMPARISON: Previous CT of the abdomen and pelvis most recent May 2024 TECHNIQUE: CT scan of the abdomen and pelvis was performed without contrast using standard departmental protocol. Coronal and sagittal reformatted images were generated and reviewed. This CT exam was performed with one or more of the following dose reduction techniques: automated exposure control, adjustment of the mA and/or kV according to patient size, use of iterative reconstruction technique. DLP: 852 mGy-cm FINDINGS: LIVER: The liver is normal in size and contour. The liver has an unremarkable unenhanced appearance. GALLBLADDER / BILE DUCTS: Single tiny gallstone. The gallbladder is otherwise unremarkable. There is no intra or extrahepatic biliary ductal dilatation. SPLEEN: The spleen is normal in size and has an unremarkable unenhanced appearance. PANCREAS: The pancreas has an unremarkable unenhanced appearance. ADRENAL GLANDS: Stable low-attenuation left adrenal nodule. Hounsfield units without contrast measure 7 and this may represent a benign lipid rich adenoma. Slight nodular thickening of the right adrenal gland unchanged. KIDNEYS/RETROPERITONEUM: 2 high attenuation left renal lesions measuring up to 1.3 cm probably represents hyperdense cysts. Left lower pole peripelvic cyst. No renal calculi are identified. There is no hydronephrosis. LYMPH NODES: No retroperitoneal lymphadenopathy is identified in the abdomen or pelvis. VASCULATURE: Severe atherosclerotic disease. MESENTERY/PERITONEUM: Trace fluid in the pelvis. There is no free intraperitoneal gas. STOMACH: Normal. SMALL BOWEL: The small bowel is normal in caliber. COLON: Severe constipation. Diverticulosis of the colon. No evidence of diverticulitis. APPENDIX: Normal. URINARY BLADDER/PELVIC ORGANS: Curry catheter in the bladder. Small amount of fluid and air in the bladder. Diffuse bladder wall thickening and perivesicular fat stranding. Differential would include cystitis and changes from bladder outlet obstruction. Correlation with urinalysis recommended. There is more focal wall thickening in the posterior dome of the bladder and imaging follow-up is recommended. Right pelvic calcifications similar to prior exams probably representing a small calcified uterine fibroid. BONES / SOFT TISSUES: Diastases of the rectus muscles and multiple umbilical and paraumbilical hernias containing fat. Spondylolysis spondylolisthesis and degenerative disc disease at L5-S1 unchanged. Lucency in the mid L5 vertebral body, question representing large Schmorl's node. This is unchanged. Mild L1 vertebral body compression fracture. This appears unchanged. Degenerative changes of the spine and hips. Increased subchondral sclerosis in both femoral heads suggestive of bilateral AVN. CT/CT abdomen pelvis wo IV con IMPRESSION: Severe constipation. Curry catheter in the bladder with small amount of remaining fluid and air. Bladder wall thickening. Question cystitis versus changes from bladder outlet obstruction. Correlation with urinalysis recommended. Diverticulosis of the colon. No evidence of diverticulitis. Severe atherosclerotic disease. Left renal hyperdense and simple cysts. Probable tiny gallstone. Electronically signed by: Marry Sheffield MD 06/17/2025 04:21 PM EST
--- NOTE | ~2025-06-17 | XR_ITS ---
EXAMINATION: XR CHEST CLINICAL INFORMATION: hypoxia COMPARISON: Previous chest x-ray and CT most recent October 2024 TECHNIQUE: Frontal view of the chest was obtained. FINDINGS: Low lung volumes. The lungs are clear. No consolidation or pulmonary edema. Known right upper lobe nodules not appreciated. No pleural effusion or pneumothorax. Cardiac and mediastinal contours are stable. Post-CABG changes. Calcified aortic knob. Degenerative changes of the spine. Median sternotomy. XR/XR chest 1V IMPRESSION: Low lung volumes. No evidence for acute disease in the chest. Electronically signed by: Marry Sheffield MD 06/17/2025 01:56 PM EST
--- NOTE | ~2025-06-17 | CT_ITS ---
EXAMINATION: CT CHEST WITHOUT IV CONTRAST INDICATION: sepsis, resp failure COMPARISON: Previous chest x-ray most recent from earlier the same day and chest CT most recent October 2024 TECHNIQUE: Helical CT scan of the chest was performed without intravenous contrast. Coronal and sagittal reformatted images were generated and reviewed. This CT exam was performed with one or more of the following dose reduction techniques: automated exposure control, adjustment of the mA and/or kV according to patient size, use of iterative reconstruction technique. DLP: 321 mGy-cm CHEST: THYROID: Bilateral thyroid nodules, largest measuring 2 cm. LUNGS: Slightly elevated right hemidiaphragm. Irregularly-shaped lobulated 1.7 x 2.1 cm right anterior upper lobe nodule axial image 15 series 11. This appears slightly increased in size from 13 x 19 mm October 2024. Adjacent semisolid 11 mm right upper lobe nodule axial image 14 series 11. This is not appreciably changed in size. New irregularly-shaped 2 x 1.6 cm posterior segment right upper lobe nodule axial image 14 series 3. Adjacent posterior segment right upper lobe subsegmental atelectasis. Slightly elevated right hemidiaphragm. Subsegmental atelectasis at the right lung base. Bronchial wall thickening and mucous plugging in the right lower lobe. 5 mm lingular nodule axial image 33 series 11. This is probably unchanged. MEDIASTINUM: Similar enlarged precarinal lymph node. This measures 2.2 cm in short axis axial image 41 series 3. NAIN: Evaluation of the hilar regions is limited by lack of intravenous contrast material. CARDIOVASCULATURE: The heart is normal in size. There is no pericardial effusion. The thoracic aorta is heavily calcified and normal in caliber. There is severe aortic valve calcification. There are post CABG changes. DEGREE OF CORONARY CALCIFICATION: severe PLEURA: There is no pleural effusion. No pneumothorax. MAIN AIRWAYS: Central airways are clear. Decreased AP dimension of the trachea questionable for tracheomalacia. There is bronchial wall thickening and mucous plugging in the right lower lobe. AXILLA: There is no axillary lymphadenopathy. Stable thick walled fluid collection probably representing a postoperative seroma following mastectomy in the left chest wall similar to previous exams. This measures 2 x 6 cm. No right chest wall mass. BONES AND SOFT TISSUES: Degenerative changes of the spine. Median sternotomy wires. CT/CT chest wo IV con IMPRESSION: Increasing size and number of right upper lobe nodules. Infectious, inflammatory and neoplastic processes should be considered. Elevated right hemidiaphragm and subsegmental atelectasis at the right lung base. Right lower lobe bronchial wall thickening and mucous plugging. 5 mm lingular nodule probably unchanged. Enlarged precarinal mediastinal lymph node similar to previous exam. Multiple thyroid nodules measuring up to 2 cm. Recommend follow-up thyroid ultrasound. Severe coronary artery calcification and post-CABG changes. There is severe aortic valve calcification. Clinically correlate for stenosis. Electronically signed by: Marry Sheffield MD 06/17/2025 04:05 PM [facility]
--- NOTE | ~2025-06-17 | CT_ITS ---
EXAMINATION: CT HEAD WITHOUT IV CONTRAST HISTORY: poorly responsive, hx CVA. TECHNIQUE: Unenhanced helical CT of the head was performed per standard departmental protocol. Coronal and sagittal reformats of the head were also evaluated. One or more of the following techniques was used for dose reduction: Automated exposure control, adjustment of the mA and/or kV according to patient size, use of iterative reconstruction technique. DLP: 717 mGy-cm COMPARISON: Comparison is made with the prior examination dated 11/07/2024. FINDINGS: BRAIN: There is diffuse prominence of the ventricular system and cortical sulci, consistent with atrophy. Periventricular and subcortical white matter hypodensities are noted which are nonspecific, but often seen in the setting of small vessel ischemic disease. There is an old infarct of the right basal ganglia. There is no mass effect or midline shift. No intra- or extra-axial fluid collections are identified. SINUSES: There is mucosal thickening in the left frontal sinus. The mastoid air cells and middle ear cavities are well pneumatized. ORBITS: The visualized orbits are unremarkable. BONES/SOFT TISSUES: The extracranial soft tissues are unremarkable. The calvarium is intact. No suspicious lytic or sclerotic lesions. CT/CT head/brain wo IV con IMPRESSION: No acute intracranial abnormality. Electronically signed by: Nelson Hodges MD 06/17/2025 03:46 PM [facility]
--- NOTE | 2025-06-17 12:52 | ED.AMS ---
HPI - Altered Mental Status General Chief Complaint: Altered Mental Status Stated Complaint: NOT WELL XD'S,UNRESP TODAY/MIN TO PAIN,HOT TO TOUC Time Seen by Provider: 06/17/25 12:50 Source: patient and EMS Mode of arrival: EMS Limitations: altered mental status History of Present Illness ED Provider: Citlaly Pickett PA-C HPI narrative: 79-year-old bed-bound female with history of a stroke w/ left sided hemiparesis COPD w/, chronic hypoxic, hypercarbic respiratory failure on 2 L nasal cannula at baseline, chronic iron-deficiency anemia, chronic sacral wounds, who presents to the ER from her assisted living for evaluation of unresponsiveness. Patient unable to participate in history. Spoke with patient's healthcare rep/POA/24 hour caregiver Mariely who reports patient has been under the weather since . She reports for the last 5 or 6 days she has not felt well. Last evening she was more lethargic, less responsive. Social reports she was still eating and drinking, but she was pocketing her food and so she needs to remind her to swallow it. Patient was saying goodbye to her like it was the end Mariely reports her oxygen levels were normal and she did not have difficulty breathing at the time. This morning physical therapist went into her apartment and found her unresponsive. She was warm to the touch. EMS was called. Patient was lethargic, briefly arousing to noxious stimuli. SpO2 88% on her baseline 2L, FiO2 increased 4L. Brought to the ER for further evaluation. MD complaint: decreased responsiveness Onset (ago): day(s) Timing confirmed by: caregiver Severity: severe Consistency of symptoms: getting Worse Context: history of similar presentation Treatments prior to arrival: oxygen Related Data Home Medications ?Medication ?Instructions ?Recorded ?Confirmed atorvastatin 80 mg tablet 80 mg PO BEDTIME 08/02/23 06/17/25 cholecalciferol (vitamin D3) 25 25 mcg PO DAILY 08/02/23 06/17/25 mcg (1,000 unit) tablet clopidogrel 75 mg tablet 75 mg PO DAILY 08/02/23 06/17/25 cyanocobalamin (vitamin B-12) 500 500 mcg PO DAILY 08/02/23 06/17/25 mcg tablet fluoxetine 20 mg capsule 20 mg PO DAILY 08/02/23 06/17/25 folic acid 400 mcg tablet 0.4 mg PO DAILY 08/02/23 06/17/25 glipizide 5 mg tablet, extended 5 mg PO DAILY 08/02/23 06/17/25 release 24 hr metoprolol succinate 25 mg 25 mg PO DAILY 08/02/23 06/17/25 tablet,extended release 24 hr oxybutynin chloride 5 mg 5 mg PO DAILY 08/02/23 06/17/25 tablet,extended release 24 hr pregabalin 150 mg capsule 150 mg PO TID 08/02/23 06/17/25 trazodone 100 mg tablet 100 mg PO BEDTIME 08/02/23 06/17/25 zinc oxide 20 % topical ointment 1 appl topical DAILY PRN Wound 08/02/23 06/17/25 Healing levetiracetam 250 mg tablet 250 mg PO BID 09/10/23 06/17/25 (Keppra) albuterol sulfate 90 mcg/actuation 2 puff inhalation Q6H PRN wheezing 04/18/24 06/17/25 aerosol inhaler (Ventolin HFA) methimazole 5 mg tablet 2.5 mg PO MOWEFR 04/18/24 06/17/25 docusate sodium 100 mg capsule 100 mg PO BID 11/07/24 06/17/25 furosemide 40 mg tablet 20 mg PO BID 11/07/24 06/17/25 ferrous sulfate 324 mg (65 mg 324 mg PO DAILY 06/17/25 06/17/25 iron) tablet,delayed release Allergies Allergy/AdvReac Type Severity Reaction Status Date / Time Penicillins Allergy Unknown Verified 06/17/25 13:29 piroxicam Allergy Unknown Verified 06/17/25 13:29 shrimp Allergy Hives Verified 06/17/25 13:29 Sulfa (Sulfonamide Allergy Unknown Verified 06/17/25 13:29 Antibiotics) Review of Systems Review of Systems: Yes Unobtainable due to mental condition and Unobtainable due to mental status PMFSH Past Medical History Medical History Non-insulin dependent type 2 diabetes mellitus Aortic stenosis Congestive heart failure Seizure Dementia Seizure COPD (chronic obstructive pulmonary disease) Peripheral neuropathy HLD (hyperlipidemia) CVA (cerebral vascular accident) Heart failure, unspecified Social History Social History Household Members: Unknown / Unable to assess Housing: Unknown / Unable to assess Housing Other:: senior living Do you presently have visiting nurse or other home services: Yes Alcohol intake: former Comment: non ambulatory pt Patient Tobacco Use Status: Never used Tobacco Second Hand Smoke Exposure: No Advance Directives Date on File: 09/15/23 service: No Physical Exam ED Exam Exam: Appearance: chronically ill appearing elderly female, poorly responsive. no acute respiratory distress Head: normocephalic, atraumatic. Eyes: Pupils equal, round and reactive to light. ENT: Pharynx normal. dry mucus membranes Neck: Normal inspection. Neck supple. CVS: Normal heart rate and rhythm. Pulses normal. +systolic murmur Respiratory: No respiratory distress. Breath sounds diminished throughout without wheezing or rhonchi Abdomen: Obese, oft and nontender. +BS x4 Skin: Skin warm and dry. Normal skin color. Normal skin turgor. No rashes. Extremities: No lower extremity edema. No joint swelling. warm LE Neuro/psych: minimally responsive, briefly arouses to noxious stimuli, does not follow commands. Vital Signs: Vital Signs - 24 hr 06/17/25 12:56 06/17/25 13:00 06/17/25 13:05 Temperature 101.9 F H Pulse Rate 107 H 106 H 99 Respiratory Rate 22 H 13 23 H Blood Pressure 87/50 L 105/56 L 94/53 L Pulse Oximetry 95 94 96 Oxygen Delivery Method Nasal Cannula BiPAP BiPAP Oxygen Flow Rate 06/17/25 13:10 06/17/25 13:15 06/17/25 13:20 Temperature Pulse Rate 98 98 100 Respiratory Rate 19 21 H 23 H Blood Pressure 87/50 L 99/54 L 100/58 L Pulse Oximetry 96 95 93 Oxygen Delivery Method BiPAP BiPAP BiPAP Oxygen Flow Rate 06/17/25 13:25 06/17/25 13:29 06/17/25 13:30 Temperature Pulse Rate 97 99 Respiratory Rate 19 21 H 17 Blood Pressure 98/55 L 107/58 L Pulse Oximetry 91 L 88 L Oxygen Delivery Method BiPAP BiPAP Oxygen Flow Rate 06/17/25 13:35 06/17/25 13:40 06/17/25 13:50 Temperature Pulse Rate 97 96 89 Respiratory Rate 18 19 15 Blood Pressure 109/58 L 101/55 L 94/48 L Pulse Oximetry 90 L 89 L 93 Oxygen Delivery Method BiPAP BiPAP BiPAP Oxygen Flow Rate 06/17/25 13:55 06/17/25 13:57 06/17/25 14:00 Temperature Pulse Rate 77 78 77 Respiratory Rate 23 H 21 H 17 Blood Pressure 73/34 L 65/34 L 67/36 L Pulse Oximetry 98 98 98 Oxygen Delivery Method BiPAP BiPAP BiPAP Oxygen Flow Rate 06/17/25 14:05 06/17/25 14:05 06/17/25 14:10 Temperature Pulse Rate 82 75 83 Respiratory Rate 20 19 Blood Pressure 75/41 L 75/41 L 105/56 L Pulse Oximetry 98 86 L Oxygen Delivery Method BiPAP BiPAP Oxygen Flow Rate 06/17/25 14:20 06/17/25 14:25 06/17/25 14:27 Temperature 99 F 99 F Pulse Rate 72 68 90 Respiratory Rate 30 H 18 19 Blood Pressure 89/45 L 94/45 L 98/46 L Pulse Oximetry 99 100 90 L Oxygen Delivery Method Nasal Cannula Nasal Cannula BiPAP Oxygen Flow Rate 1 1 06/17/25 14:30 06/17/25 14:30 06/17/25 14:35 Temperature 99.0 F 99 F 99 F Pulse Rate 83 83 80 Respiratory Rate 22 H 22 H 25 H Blood Pressure 101/50 L 101/50 L 103/49 L Pulse Oximetry 88 L 88 L 92 Oxygen Delivery Method BiPAP Nasal Cannula Nasal Cannula Oxygen Flow Rate 1 1 06/17/25 14:40 06/17/25 15:05 06/17/25 15:10 Temperature 99 F 98.8 F 98.6 F Pulse Rate 82 85 83 Respiratory Rate 26 H 14 20 Blood Pressure 105/51 L 99/48 L 95/48 L Pulse Oximetry 93 91 L 91 L Oxygen Delivery Method Nasal Cannula Nasal Cannula Nasal Cannula Oxygen Flow Rate 1 1 1 06/17/25 15:12 06/17/25 15:15 06/17/25 15:20 Temperature 98.6 F 98.6 F Pulse Rate 84 82 80 Respiratory Rate 25 H 24 H Blood Pressure 95/48 L 86/41 L 93/44 L Pulse Oximetry 90 L 91 L Oxygen Delivery Method Nasal Cannula Nasal Cannula Oxygen Flow Rate 1 1 BMI result Body Mass Index 25.1 Course Course Course Narrative: 1522 11/25/25 I was involved in all critical aspects of this patients care and work up SUSY ALMAGUER Medications Administered Generic Name Dose Route Start Last Admin Trade Name Cali PRN Reason Stop Dose Admin Albuterol/Ipratropium 3 ml 06/18/25 08:00 06/18/25 07:42 Albuterol/Iprat 2.5/0.5mg 3 Ml Ampul.Neb INHALE 3 ml RQ4H WHILE AWAKE MARC Administration Chlorhexidine Gluconate 15 ml 06/17/25 22:30 06/18/25 08:03 Chlorhexidine Gluc Oral Rinse 15 Ml Mouthwash BUCCAL 15 ml TID MARC Administration Heparin Sodium (Porcine) 5,000 unit 06/17/25 15:30 06/18/25 08:03 Heparin Sodium,Porcine 5,000 Unit/Ml Vial SUBCUT 5,000 unit Q8H MARC Administration Norepinephrine Bitartrate 8 mg in 250 mls @ 0 mls/hr 06/17/25 14:00 06/18/25 06:17 Levophed IVCONT 0.14 mcg/kg/min .Q0M MARC 16.85 mls/hr Protocol Titration Per Protocol Fentanyl 1,000 mcg in 100 mls @ 0 mls/hr 06/17/25 20:30 06/18/25 04:12 Sublimaze/Ns IVCONT 50 mcg/hr .Q0M MARC 5 mls/hr Protocol Titration Per Protocol Propofol 1,000 mg in 100 mls @ 0 mls/hr 06/17/25 22:30 06/18/25 05:46 Diprivan IVCONT 40 mcg/kg/min .Q0M MARC 15.41 mls/hr Protocol Administration Per Protocol Potassium Phosphate 15 mmol in 250 mls @ 62.5 mls/hr 06/18/25 05:45 06/18/25 06:16 Kphos IV 06/18/25 13:44 62.5 mls/hr Q4H MARC Administration Albumin Human 100 mls @ 100 mls/hr 06/18/25 08:00 06/18/25 09:24 Kedbumin 25 % IV 06/19/25 02:59 Infused Q6H MARC Infusion Insulin Human Lispro 2 - 10 unit 06/18/25 00:00 06/18/25 05:45 Insulin Lispro 100 Unit/Ml 3 Ml Vial SUBCUT 4 unit Q6H MARC Administration Protocol Nystatin 1 appl 06/17/25 21:00 06/18/25 08:04 Nystatin Powder 15 Gm Bottle TOPICAL 1 appl BID MARC Administration Protocol Pantoprazole Sodium 40 mg 06/17/25 22:30 06/18/25 05:46 Pantoprazole Sodium 40 Mg/10 Ml Vial IVPUSH 40 mg DAILY@0630 MARC Administration Sodium Chloride 3 ml 06/18/25 08:00 06/18/25 08:04 0.9 % Sodium Chloride Flush 3 Ml Syringe IVFLUSH 3 ml QSHIFT MARC Administration Discontinued Medications Generic Name Dose Route Start Last Admin Trade Name Freq PRN Reason Stop Dose Admin Albuterol Sulfate 2.5 mg/ 5 mg 06/17/25 20:08 06/17/25 20:23 Albuterol Sulfate 2.5 mg INHALE 06/17/25 20:09 5 mg ONCE ONE Administration Albuterol Sulfate 5 mg 06/17/25 20:17 06/17/25 20:24 Albuterol Sulfate (0.083%) 2.5 Mg/3 Ml Vial.Neb INHALE 06/17/25 20:18 5 mg ONCE ONE Administration Albuterol/Ipratropium 3 ml 06/17/25 20:08 06/17/25 20:23 Albuterol/Iprat 2.5/0.5mg 3 Ml Ampul.Neb INHALE 06/17/25 20:09 3 ml ONCE ONE Administration Epinephrine 1 mg 06/17/25 20:21 06/17/25 20:07 Epinephrine 1 Mg/10 Ml Syringe IVPUSH 06/17/25 20:22 1 mg ONCE ONE Administration Acetaminophen 1,000 mg in 100 mls @ 400 mls/hr 06/17/25 12:58 06/17/25 13:32 Ofirmev IV 06/17/25 13:12 Infused ONCE ONE Infusion Cefepime HCl 2 gm in 50 mls @ 100 mls/hr 06/17/25 12:58 06/17/25 13:47 Maxipime IV 06/17/25 13:27 Infused ONCE ONE Infusion Lactated Ringer's 1,000 mls @ 999 mls/hr 06/17/25 13:00 06/17/25 14:18 Lr IV 06/17/25 14:00 Infused .Q1H1M MARC Infusion Lactated Ringer's 1,000 mls @ 999 mls/hr 06/17/25 13:30 06/17/25 14:18 Lr IV 06/17/25 14:30 Infused .Q1H1M MARC Infusion Vancomycin HCl 1,500 mg/ 500 mls @ 333.333 mls/hr 06/17/25 13:55 06/17/25 15:31 Sodium Chloride IV 06/17/25 15:24 Infused ONCE ONE Infusion Dextrose 1,000 mls @ 50 mls/hr 06/17/25 14:45 06/17/25 16:00 D5w IVCONT Infused .Q20H MARC Infusion Lactated Ringer's 1,000 mls @ 999 mls/hr 06/17/25 15:30 06/17/25 17:43 Lr IV 06/17/25 17:30 Infused .Q1H1M MARC Infusion Propofol 70 mg 06/17/25 20:20 06/17/25 19:57 Propofol 200 Mg/20 Ml Vial IVPUSH 06/17/25 20:21 70 mg ONCE ONE Administration Medical Decision Making Medical Decision Making MDM Narrative: 1:10 pm - patient arrives to the ER minimally responsive, briefly arouses to noxious stimuli and then quickly falls back asleep. She is febrile to 101.9. There is concern for infection and sepsis at this time. Covering broadly with vancomycin and cefepime. History of septic shock in the past requiring ICU admission. confirmed FULL CODE status with HCR Mariely. 1:18 - patient hypotensive with map less than 65 x 2. Sepsis bolus is 1.9 L, 2 L IVF have been ordered. Nurse hanging now. ABG with compensated chronic, hypoxic and hypercarbic respiratory failure. ECHO from 06/16 reviewed, EF 68% with moderate to severe . 2 pm - 2 L infusing, patient hypotensive with systolic blood pressures in the 60s. Lactic acid is normal. Lab work coming back with acute renal failure, creatinine is 2.8 with a sodium of 159. Starting peripheral Levophed for blood pressure support. Continue IV fluid resuscitation. CT scan of her head, chest, abdomen are pending. 2:45 - BP improved on low dose levophed. will hold off on central line. patient trialed off of bipap given compensated pH and no acute respiratory acidosis, will help BP. mental status remains poor but protecting her airway, briefly arouses to noxious stimuli but quickly falls back asleep. sodium 159 - free water deficit 1.8L, starting D5W @ [address] scans are pending Curry placed with cloudy appearing urine, may be the source of her sepsis. suspicion remains high for pulmonary source as well. 15:22 - CT imaged reviewed. there appears to be an obstructing left sided kidney stone at the UPJ that likely needs urgent intervention. Dr. Issa from Urology tigertexted to review images and determine plan. concern for worsening hemodynamics after urologic intervention. patient will require ICU level of care given her septic shock and encephalopathy. Dr. Lazaro came to assess the patient - additional IVF ordered. 15:30 spoke w/ Dr. Issa and reviewed the case. she will review imaging and discuss with the OR and anesthesia timing of urologic intervention. pt admitted to MICU. official CT reads are pending focused sepsis examination complete at this time. Updated patient's HCR/POA and caregiver Mariely at 1540 and update on plan of care. all questions were answered Differential Diagnosis Differential Diagnoses: The differential diagnosis associated with the presentation includes Acute on chronic hypoxic and hypercarbic respiratory failure, severe sepsis, septic shock, pneumonia, urosepsis, aspiration pneumonia, intra-abdominal process, cardiogenic shock Admission/Observation Consideration of admission/observation: Escalation of care including admission/observation considered Consult Healthcare Provider Management of the patient was discussed with: Vertical Borer Dr. Lazaro Pulm/critical care Dr. Issa Urology Lab Data MDM Lab Attestation statement: I reviewed the patient's lab results. hypernatremia, KIRAN, likely hemoconcentrated w/ severe dehydation, H/H no longer her baseline anemia, stable thrombocytopenia 06/18/25 05:01 06/18/25 05:01 Labs: Lab Results 06/17/25 06/17/25 06/17/25 Range/Units 13:07 13:10 13:14 WBC 9.0 (4.8-10.8) X10*3/uL RBC 4.56 D (4.20-5.50) X10*6/uL Hgb 12.5 D (12.0-16.0) g/dl Hct 42.2 D (37.0-47.0) % MCV 92.5 (80.0-98.0) fL MCH 27.4 (27.0-33.0) pg MCHC 29.6 L (31.0-35.0) g/dl RDW 16.9 H (11.0-16.0) % Plt Count 140 L (160-400) X10*3/uL MPV 11.6 (9.4-12.3) fL Immature Gran % (Auto) 0.2 (0.0-0.4) % Neut % (Auto) 75.3 H (45-73) % Lymph % (Auto) 13.0 L (20-40) % [place] % (Auto) 11.2 H (2-11) % Eos % (Auto) 0.0 (0-4) % Baso % (Auto) 0.3 (0-2) % Lymph # (Auto) 1.2 (1.2-4.9) X10*3/uL [place] # (Auto) 1.0 (0.1-1.2) X10*3/uL Eos # (Auto) 0.0 (0.0-0.4) X10*3/uL Baso # (Auto) 0.0 (0.0-0.2) X10*3/uL Abs Immat Gran (auto) 0.02 (0.00-0.03) X10*3/uL Absolute Neuts (auto) 6.8 (2.0-8.3) x10*3/uL Absolute Nucleated RBC 0.000 (0.0-0.012) X10*3/uL Nucleated RBC % (auto) 0.0 (0.0-0.2) /100WBC PT 15.1 H (11.2-13.5) SEC INR 1.2 H (0.9-1.1) O2 Saturation 99.0 % ABG pH at Pt Temp 7.39 (7.35-7.45) ABG pCO2 at Pt Temp 84 H* (32-45) mmHg ABG pO2 at Pt Temp 106 (83-108) mmHg ABG HCO3 51 H (22-26) mmol/L ABG Base Excess (Actual) 21.7 mmol/L VBG pH (7.32-7.43) VBG pCO2 mmHg VBG pO2 mmHg VBG HCO3 (22-26) mmol/L VBG O2 Saturation % VBG Base Excess mmol/L Sodium 159 H (135-145) mmol/L Potassium 4.8 (3.3-5.1) mmol/L Chloride 112 H (96-108) mmol/L Carbon Dioxide 40 H* D (22-29) mmol/L Anion Gap 12 (12-20) BUN 65 H (9-16) mg/dL Creatinine 2.80 H (0.5-1.4) mg/dL Estim Creat Clear Calc 14.6 Estimated GFR 16 Random Glucose 192 H (60-115) mg/dL Lactic Acid 1.3 (0.5-2.0) mmol/L Calcium 10.4 H D (8.4-10.2) mg/dL Magnesium 2.6 (1.6-2.6) mg/dL Total Bilirubin 0.3 (0.0-1.0) mg/dL Direct Bilirubin 0.2 (0.0-0.5) mg/dL AST 20 (5-31) U/L ALT 6 (0-31) U/L Alkaline Phosphatase 55 (39-117) U/L Ammonia 40 (13-55) umol/L Troponin I High Sens 78.6 H* D (<3.5-17.0) ng/L Total Protein 8.7 H (6.5-8.0) g/dL Albumin 4.1 (3.5-5.0) g/dL Procalcitonin 0.08 ng/mL TSH 0.08 L (0.32-4.0) uIU/mL Free T4 0.95 (0.71-1.85) ng/dL Urine Color Urine Appearance Urine pH (5.0-9.0) Ur Specific [place] (1.005-1.025) Urine Protein (Neg-Trace) mg/dL Urine Glucose (UA) (Negative) mg/dL Urine Ketones (Negative) mg/dL Urine Blood (Negative) Urine Nitrite (Negative) Ur Leukocyte Esterase (Negative) Urine RBC (0-2) /HPF Urine WBC (0-5) /HPF Ur Squamous Epith Cells (0-2) /HPF Ur Transition Epith Cell Urine Bacteria (None Seen) Hyaline Casts (0-2) /LPF Urine Yeast Influenza Type A (PCR) NEGATIVE (Negative) Influenza Type B (PCR) NEGATIVE (Negative) RSV RNA Qual (PCR) NEGATIVE (Negative) SARS-CoV-2 RNA (RT-PCR) NEGATIVE (Negative) 06/17/25 06/17/25 Range/Units 13:19 14:36 WBC (4.8-10.8) X10*3/uL RBC (4.20-5.50) X10*6/uL Hgb (12.0-16.0) g/dl Hct (37.0-47.0) % MCV (80.0-98.0) fL MCH (27.0-33.0) pg MCHC (31.0-35.0) g/dl RDW (11.0-16.0) % Plt Count (160-400) X10*3/uL MPV (9.4-12.3) fL Immature Gran % (Auto) (0.0-0.4) % Neut % (Auto) (45-73) % Lymph % (Auto) (20-40) % [place] % (Auto) (2-11) % Eos % (Auto) (0-4) % Baso % (Auto) (0-2) % Lymph # (Auto) (1.2-4.9) X10*3/uL [place] # (Auto) (0.1-1.2) X10*3/uL Eos # (Auto) (0.0-0.4) X10*3/uL Baso # (Auto) (0.0-0.2) X10*3/uL Abs Immat Gran (auto) (0.00-0.03) X10*3/uL Absolute Neuts (auto) (2.0-8.3) x10*3/uL Absolute Nucleated RBC (0.0-0.012) X10*3/uL Nucleated RBC % (auto) (0.0-0.2) /100WBC PT (11.2-13.5) SEC INR (0.9-1.1) O2 Saturation % ABG pH at Pt Temp (7.35-7.45) ABG pCO2 at Pt Temp (32-45) mmHg ABG pO2 at Pt Temp (83-108) mmHg ABG HCO3 (22-26) mmol/L ABG Base Excess (Actual) mmol/L VBG pH 7.33 (7.32-7.43) VBG pCO2 80 mmHg VBG pO2 64 mmHg VBG HCO3 42 H (22-26) mmol/L VBG O2 Saturation 87.0 % VBG Base Excess 12.8 mmol/L Sodium (135-145) mmol/L Potassium (3.3-5.1) mmol/L Chloride (96-108) mmol/L Carbon Dioxide (22-29) mmol/L Anion Gap (12-20) BUN (9-16) mg/dL Creatinine (0.5-1.4) mg/dL Estim Creat Clear Calc Estimated GFR Random Glucose (60-115) mg/dL Lactic Acid (0.5-2.0) mmol/L Calcium (8.4-10.2) mg/dL Magnesium (1.6-2.6) mg/dL Total Bilirubin (0.0-1.0) mg/dL Direct Bilirubin (0.0-0.5) mg/dL AST (5-31) U/L ALT (0-31) U/L Alkaline Phosphatase (39-117) U/L Ammonia (13-55) umol/L Troponin I High Sens (<3.5-17.0) ng/L Total Protein (6.5-8.0) g/dL Albumin (3.5-5.0) g/dL Procalcitonin ng/mL TSH (0.32-4.0) uIU/mL Free T4 (0.71-1.85) ng/dL Urine Color Yellow Urine Appearance Turbid Urine pH 5.5 (5.0-9.0) Ur Specific [place] 1.015 (1.005-1.025) Urine Protein 30 (1+) H (Neg-Trace) mg/dL Urine Glucose (UA) Negative (Negative) mg/dL Urine Ketones Negative (Negative) mg/dL Urine Blood Large (3+) H (Negative) Urine Nitrite Negative (Negative) Ur Leukocyte Esterase Large (3+) H (Negative) Urine RBC 3-5 H (0-2) /HPF Urine WBC >50 H (0-5) /HPF Ur Squamous Epith Cells 6-10 (0-2) /HPF Ur Transition Epith Cell Present Urine Bacteria 3+ (None Seen) Hyaline Casts 3-5 (0-2) /LPF Urine Yeast Present Influenza Type A (PCR) (Negative) Influenza Type B (PCR) (Negative) RSV RNA Qual (PCR) (Negative) SARS-CoV-2 RNA (RT-PCR) (Negative) ABG Data Attestation ABG: I personally reviewed and interpreted this ABG as follows: Interpretation: Chronic, compensated hypoxic and hypercarbic respiratory failure Independent Interpretation I performed an independent interpretation of an: EKG, Plain X-Ray and CT Scan Interpretation: EKG with normal sinus rhythm, ventricular rate 100 beats per minute, normal QTC, no ST segment elevations or depressions CXR w/ right hemidiaphragm elevation which is chronic CT abd/pelvis with obstruting proximal/UPJ stone on the left with hydronephrosis Radiology Impression Discussion of test interpretation with radiology: I have reviewed the radiologist's reading. Independent Historian Clinical information obtained from an independent historian. History obtained from or confirmed by: EMS and Other ([facility] HCR) External Record Review External record reviewed: Inpatient record, Outpatient record, Prior outpatient labs and Prior outpatient radiology Prescription Management I considered prescription management with: Antibiotic Chronic Conditions Patient?s care impacted by: Other (CVA, chronic hypoxic/hypercarbic respiratory failure, COPD) Critical Care Time Critical Care Time Critical Care Time: Yes Total Critical Care Time: 65 Attestation: I have personally provided critical care time exclusive of time spent on separately billable procedures. Time includes review of lab data, radiology results, discussion with consultants, and monitoring for potential decompensation. Intervention performed as documented. Discharge Plan Discharge Clinical Impression: Acute encephalopathy, Acute on chronic respiratory failure with hypoxia and hypercapnia, Acute hypernatremia, Hydronephrosis with renal calculous obstruction Septic shock Qualifiers: Sepsis type: sepsis due to unspecified organism Qualified Code(s): A41.9 - Sepsis, unspecified organism Acute renal failure Qualifiers: Acute renal failure type: unspecified Qualified Code(s): N17.9 - Acute kidney failure, unspecified Patient Disposition: Admitted As Inpatient Interventions: Admission Worksheet (ED) Last Done: 06/17/25 16:30 Discharge Date/Time: 06/17/25 16:30
--- NOTE | 2025-06-17 12:53 | ECG_ITS ---
Test Reason : UNRESPONSIVE Blood Pressure : */* mmHG Vent. Rate : 100 BPM Atrial Rate : 100 BPM P-R Int : 130 ms QRS Dur : 70 ms QT Int : 314 ms P-R-T Axes : 72 27 33 degrees QTcB Int : 405 ms Normal sinus rhythm Normal ECG When compared with ECG of 08-Nov-2024 01:20, Premature atrial complexes are no longer Present Vent. rate has increased by 52 bpm Referred By: Karlene Pickett Electronically Signed By: Christiano Guerra
[2025-06-17 13:10] LABS: ABG HCO3 51 mmol/L (22-26); ABG O2 % Saturation 99.0 %
[2025-06-17] MEDS: cefEPime HCl/D5W 2 GM/50 ML PIGGYBACK IV (13:17)
[2025-06-17] MEDS: Lactated Ringers 1,000 ML 999 ML IV ×4 (13:17→16:42)
[2025-06-17 13:21] LABS: MANUAL DIFF FLAG NO
[2025-06-17 13:23] LABS: Hematocrit 42.2 % (37.0-47.0); Hemoglobin 12.5 g/dl (12.0-16.0); Imm Gran Abs Auto 0.02 X10*3/uL (0.00-0.03); Imm Gran Pct Auto 0.2 % (0.0-0.4); Lymphocytes Absolute Auto 1.2 X10*3/uL (1.2-4.9); Mean Corpuscular HGB Conc 29.6 g/dl (31.0-35.0); Mean Corpuscular Hemoglobin 27.4 pg (27.0-33.0); Mean Corpuscular Volume 92.5 fL (80.0-98.0); NRBC Abs Auto 0.000 X10*3/uL (0.0-0.012); NRBC Pct Auto 0.0 /100WBC (0.0-0.2); Platelet Count 140 X10*3/uL (160-400); Red Blood Count 4.56 X10*6/uL (4.20-5.50); White Blood Count 9.0 X10*3/uL (4.8-10.8)
[2025-06-17 13:24] LABS: Venous Blood Gas Refer to POC result
[2025-06-17 13:25] LABS: VBG HCO3 42 mmol/L (22-26); VBG O2 % Saturation 87.0 %
[2025-06-17 13:31] LABS: INTERNATIONAL NORM RATIO 1.2 (0.9-1.1); Prothrombin Time 15.1 SEC (11.2-13.5)
[2025-06-17 13:37] LABS: Ammonia 40 umol/L (13-55)
[2025-06-17 13:49] LABS: Troponin-I High Sensitivity 78.6 ng/L (<3.5-17.0)
[2025-06-17 13:50] LABS: Alanine Aminotransferase 6 U/L (0-31); Albumin Level 4.1 g/dL (3.5-5.0); Alkaline Phosphatase 55 U/L (39-117); Anion Gap 12 (12-20); Aspartate Amino Transferase 20 U/L (5-31); Blood Urea Nitrogen 65 mg/dL (9-16); Calcium 10.4 mg/dL (8.4-10.2); Carbon Dioxide 40 mmol/L (22-29); Chloride 112 mmol/L (96-108); Creatinine Clr Calc Pharmacy 14.6; Estimated Glomerular Filt Rate 16; Magnesium 2.6 mg/dL (1.6-2.6); Potassium 4.8 mmol/L (3.3-5.1); Sodium 159 mmol/L (135-145); Total Protein 8.7 g/dL (6.5-8.0)
[2025-06-17 14:00] LABS: Procalcitonin 0.08 ng/mL
[2025-06-17 14:12] LABS: Resp Syncy Virus RNA Qual PCR NEGATIVE (Negative); SARS COV2 PCR INHOUSE NEGATIVE (Negative)
--- NOTE | 2025-06-17 14:24 | PC.NURSE ---
Coming off of BiPaP at this time, per LINDY Pickett. Respiratory therapist at bedside, applying 6LPM oxygen via nasal cannula at this time.
[2025-06-17 14:37] LABS: Free T4 (Free Thyroxine) 0.95 ng/dL (0.71-1.85)
[2025-06-17 14:44] LABS: Appearance Urine Turbid; Glucose Urine UA Negative (Negative); PH 5.5 (5.0-9.0); Specific Gravity - Urine 1.015 (1.005-1.025); UMIC TRIGGER UACC YES
[2025-06-17 14:52] LABS: UACC Culture Trigger YES
--- NOTE | 2025-06-17 15:02 | PC.NURSE ---
Patient returned from CT scan, results pending. Dextrose 5% infusion initiated, infusing at 50 mL/hr. Levophed continues at 0.05mcg/kg/min as ordered with positive effect, maintaining MAP >65 at this time. Afebrile 98.8 F.
--- NOTE | 2025-06-17 15:16 | PC.NURSE ---
Dr. Lazaro (ICU/associate professor) at bedside for evaluation. Speaking with LINDY Pickett at this time. Care ongoing by this RN.
[2025-06-17 15:51] LABS: Venous Blood Gas Refer to POC result
[2025-06-17 15:52] LABS: VBG HCO3 36 mmol/L (22-26); VBG O2 % Saturation 99.0 %
--- NOTE | 2025-06-17 15:54 | PM.CCHP ---
History of Present Illness Date of Service: 06/17/25 Chief Complaint: AMS, hypotension 79-year-old lady with underlying history of CVA with left-sided hemiparesis, COPD on 2 L at baseline, diabetes mellitus, seizure disorder, chronic sacral decubitus wound, minimally verbal and nonambulatory presented to ER on 06/17/2025 for evaluation of lethargy and hypotension. On ER evaluation patient with IV fluid resuscitation requiring pressor support. She was started empiric antibiotics. Her CT abdomen demonstrated left-sided obstructing calculus. Urology was consulted and is planning stenting. Patient was admitted the intensive care unit for further management. Review of Systems Review of Systems: Yes Unobtainable due to mental condition and Unobtainable due to mental status PMFSH Past Medical History Medical History (Updated 06/17/25 @ 15:59 by Romaine Lazaro MD) Non-insulin dependent type 2 diabetes mellitus Aortic stenosis Congestive heart failure Seizure Dementia Seizure COPD (chronic obstructive pulmonary disease) Peripheral neuropathy HLD (hyperlipidemia) CVA (cerebral vascular accident) Heart failure, unspecified Social History Social History Household Members: Unknown / Unable to assess Housing: Unknown / Unable to assess Housing Other:: halfway Do you presently have visiting nurse or other home services: Yes Alcohol intake: former Comment: non ambulatory pt Patient Tobacco Use Status: Never used Tobacco Second Hand Smoke Exposure: No Advance Directives: Yes Advance Directives on File: Yes Advance Directives Date on File: 09/15/23 service: No Meds Allergies Allergy/AdvReac Type Severity Reaction Status Date / Time Penicillins Allergy Unknown Verified 06/17/25 13:29 piroxicam Allergy Unknown Verified 06/17/25 13:29 shrimp Allergy Hives Verified 06/17/25 13:29 Sulfa (Sulfonamide Allergy Unknown Verified 06/17/25 13:29 Antibiotics) Active Medications: Current Medications Heparin Sodium (Porcine) (Heparin Sodium,Porcine 5,000 Unit/Ml Vial) 5,000 unit SUBCUT Q8H MARC Norepinephrine Bitartrate (Levophed) 8 mg in 250 mls @ 0 mls/hr IVCONT .Q0M MARC; Protocol Last Titration: 06/17/25 15:12 Dose: 0.07 mcg/kg/min, 8.43 mls/hr Lactated Ringer's (Lr) 1,000 mls @ 999 mls/hr IV .Q1H1M MARC Stop: 06/17/25 17:30 Last Admin: 06/17/25 15:41 Dose: 999 mls/hr Home Medications ?Medication ?Instructions ?Recorded ?Confirmed ?Last Taken ?Type acetaminophen 500 mg tablet 500 mg PO BID 08/02/23 11/07/24 06/02/24 History albuterol sulfate 2.5 mg/3 mL 2.5 mg inhalation Q6H PRN 08/02/23 11/07/24 Unknown History (0.083 %) solution for nebulization Shortness Of Breath Or Wheezing aspirin 81 mg tablet,delayed 81 mg PO DAILY 08/02/23 11/07/24 06/02/24 History release atorvastatin 80 mg tablet 80 mg PO BEDTIME 08/02/23 11/07/24 06/02/24 History cholecalciferol (vitamin D3) 25 25 mcg PO DAILY 08/02/23 11/07/24 06/02/24 History mcg (1,000 unit) tablet clopidogrel 75 mg tablet 75 mg PO DAILY 08/02/23 11/07/24 06/02/24 History cyanocobalamin (vitamin B-12) 500 500 mcg PO DAILY 08/02/23 11/07/24 06/02/24 History mcg tablet fluoxetine 20 mg capsule 20 mg PO DAILY 08/02/23 11/07/24 06/02/24 History folic acid 400 mcg tablet 0.4 mg PO DAILY 08/02/23 11/07/24 06/02/24 History glipizide 5 mg tablet, extended 5 mg PO DAILY 08/02/23 06/14/24 06/02/24 History release 24 hr metoprolol succinate 25 mg 25 mg PO DAILY 08/02/23 11/07/24 06/02/24 History tablet,extended release 24 hr oxybutynin chloride 5 mg 5 mg PO DAILY 08/02/23 11/07/24 06/02/24 History tablet,extended release 24 hr pregabalin 150 mg capsule 150 mg PO TID 08/02/23 11/07/24 06/02/24 History trazodone 100 mg tablet 100 mg PO BEDTIME 08/02/23 11/07/24 06/02/24 History zinc oxide 20 % topical ointment 1 appl topical DAILY PRN Wound 08/02/23 11/07/24 Unknown History Healing fluticasone propionate 220 1 puff inhalation BID 09/10/23 11/07/24 06/02/24 History mcg/actuation HFA aerosol inhaler levetiracetam 250 mg tablet 250 mg PO BID 09/10/23 11/07/24 06/02/24 History (Keppra) loperamide 2 mg capsule 2 mg PO QID PRN Diarrhea 09/10/23 11/07/24 Unknown History albuterol sulfate 90 mcg/actuation 2 puff inhalation Q6H PRN wheezing 04/18/24 11/07/24 Unknown History aerosol inhaler (Ventolin HFA) methimazole 5 mg tablet 2.5 mg PO DAILY 04/18/24 11/07/24 06/02/24 History cranberry extract 250 mg capsule 250 mg PO DAILY 11/07/24 11/07/24 Unknown History docusate sodium 100 mg capsule 100 mg PO BID 11/07/24 11/07/24 Unknown History furosemide 40 mg tablet 20 mg PO BID 11/07/24 11/07/24 Unknown History glycerin (adult) 1 supp MS DAILY PRN Constipation 11/07/24 11/07/24 Unknown History polyethylene glycol 3350 17 17 g PO DAILY 11/07/24 11/07/24 Unknown History gram/dose oral powder (Gavilax) Physical Exam Vital Signs: Vital Signs: Last Vital Signs Temp 101.9 F H 06/17/25 12:56 Pulse 84 06/17/25 15:12 Resp 19 06/17/25 14:27 BP 95/48 L 06/17/25 15:12 Pulse Ox 90 L 06/17/25 14:27 O2 Del Method BiPAP 06/17/25 14:27 Oxygen Flow Rate 2 06/17/25 12:56 BMI result Body Mass Index 25.1 Const: General: no acute distress and lethargic (Poor arousal) Orientation/consciousness: lethargic (Poor arousal) Eyes: Sclerae: sclerae normal Neck: Neck: Yes no lymphadenopathy, Yes trachea midline and Yes supple Resp: Effort & Inspection: normal respiratory effort and no respiratory distress Auscultation: clear to auscultation bilaterally Cardio: Rate: regular rate Rhythm: regular rhythm Heart sounds: no gallops, no murmurs and no rubs GI: Palpation (GI): Soft to palpation and Other GI palpation findings present ( Nontender) Auscultation: normal bowel sounds Extrem: General: Yes no pedal edema, No clubbing and No cyanosis Results Labs 06/17/25 13:10 06/17/25 13:10 Labs: Laboratory Results - last 24 hr 06/17/25 06/17/25 06/17/25 13:07 13:10 13:14 MCV 92.5 MCH 27.4 MCHC 29.6 L RDW 16.9 H Plt Count 140 L MPV 11.6 Immature Gran % (Auto) 0.2 Neut % (Auto) 75.3 H Lymph % (Auto) 13.0 L [place] % (Auto) 11.2 H Eos % (Auto) 0.0 Baso % (Auto) 0.3 Lymph # (Auto) 1.2 [place] # (Auto) 1.0 Eos # (Auto) 0.0 Baso # (Auto) 0.0 Abs Immat Gran (auto) 0.02 Absolute Neuts (auto) 6.8 Absolute Nucleated RBC 0.000 Nucleated RBC % (auto) 0.0 PT 15.1 H INR 1.2 H O2 Saturation 99.0 ABG pH at Pt Temp 7.39 ABG pCO2 at Pt Temp 84 H* ABG pO2 at Pt Temp 106 ABG HCO3 51 H ABG Base Excess (Actual) 21.7 VBG pH VBG pCO2 VBG pO2 VBG HCO3 VBG O2 Saturation VBG Base Excess Anion Gap 12 Estim Creat Clear Calc 14.6 Estimated GFR 16 Random Glucose 192 H Lactic Acid 1.3 Calcium 10.4 H D Magnesium 2.6 Total Bilirubin 0.3 Direct Bilirubin 0.2 AST 20 ALT 6 Alkaline Phosphatase 55 Ammonia 40 Troponin I High Sens 78.6 H* D Total Protein 8.7 H Albumin 4.1 Procalcitonin 0.08 TSH 0.08 L Free T4 0.95 Urine Color Urine Appearance Urine pH Ur Specific [place] Urine Protein Urine Glucose (UA) Urine Ketones Urine Blood Urine Nitrite Ur Leukocyte Esterase Urine RBC Urine WBC Ur Squamous Epith Cells Ur Transition Epith Cell Urine Bacteria Hyaline Casts Urine Yeast Influenza Type A (PCR) NEGATIVE Influenza Type B (PCR) NEGATIVE RSV RNA Qual (PCR) NEGATIVE SARS-CoV-2 RNA (RT-PCR) NEGATIVE 06/17/25 06/17/25 06/17/25 13:19 14:36 15:47 MCV MCH MCHC RDW Plt Count MPV Immature Gran % (Auto) Neut % (Auto) Lymph % (Auto) [place] % (Auto) Eos % (Auto) Baso % (Auto) Lymph # (Auto) [place] # (Auto) Eos # (Auto) Baso # (Auto) Abs Immat Gran (auto) Absolute Neuts (auto) Absolute Nucleated RBC Nucleated RBC % (auto) PT INR O2 Saturation ABG pH at Pt Temp ABG pCO2 at Pt Temp ABG pO2 at Pt Temp ABG HCO3 ABG Base Excess (Actual) VBG pH 7.33 7.41 VBG pCO2 80 57 VBG pO2 64 126 VBG HCO3 42 H 36 H VBG O2 Saturation 87.0 99.0 VBG Base Excess 12.8 10.4 Anion Gap Estim Creat Clear Calc Estimated GFR Random Glucose Lactic Acid Calcium Magnesium Total Bilirubin Direct Bilirubin AST ALT Alkaline Phosphatase Ammonia Troponin I High Sens Total Protein Albumin Procalcitonin TSH Free T4 Urine Color Yellow Urine Appearance Turbid Urine pH 5.5 Ur Specific [place] 1.015 Urine Protein 30 (1+) H Urine Glucose (UA) Negative Urine Ketones Negative Urine Blood Large (3+) H Urine Nitrite Negative Ur Leukocyte Esterase Large (3+) H Urine RBC 3-5 H Urine WBC >50 H Ur Squamous Epith Cells 6-10 Ur Transition Epith Cell Present Urine Bacteria 3+ Hyaline Casts 3-5 Urine Yeast Present Influenza Type A (PCR) Influenza Type B (PCR) RSV RNA Qual (PCR) SARS-CoV-2 RNA (RT-PCR) Imaging Radiologist's Impressions: Impressions Chest X-Ray 06/17/25 13:45 IMPRESSION: Low lung volumes. No evidence for acute disease in the chest. Electronically signed by: Marry Sheffield MD 06/17/2025 01:56 PM EST RP Head CT 06/17/25 14:52 IMPRESSION: No acute intracranial abnormality. Electronically signed by: Nelson Hodges MD 06/17/2025 03:46 PM EST RP Assessment and Plan (1) Hydronephrosis with renal calculous obstruction: Status: Acute (2) Acute renal failure: Qualifiers: Acute renal failure type: unspecified Qualified Code(s): N17.9 - Acute kidney failure, unspecified Status: Acute (3) Acute hypernatremia: Status: Acute (4) Non-insulin dependent type 2 diabetes mellitus: Status: Acute (5) Septic shock: Qualifiers: Sepsis type: sepsis due to unspecified organism Qualified Code(s): A41.9 - Sepsis, unspecified organism; R65.21 - Severe sepsis with septic shock Status: Acute Plan Assessment: 79-year-old lady with underlying CVA with left-sided hemiparesis, COPD on 2 L of O2, minimally verbal admitted with septic shock with likely source Plan: Neuro: No acute issues. Underlying history of CVA with residual left-sided paresis and resulting decreased verbal responsiveness. Further complicated by septic encephalopathy. Cardiac: Likely septic shock, continue to titrate off pressor support as tolerated. Underlying history of diastolic cardiomyopathy and aortic stenosis. Pulmonary: No acute issues. Underlying COPD on 2 L of supplemental oxygen. Renal: Acute renal failure, non oliguric. CT with left-sided hydronephrosis. Urology is planning for stenting. Continue to monitor renal indices and urine output. Endo: No acute issues. GI: No acute issues. ID: Septic shock with likely source. Continue empiric antibiotics. Heme/Onc: No acute issues. Psych: No acute issues. Miscellaneous: No acute issues. Prophylaxis: Heparin Diet: NPO Critical care time spent: 60 minutes
--- NOTE | 2025-06-17 16:00 | PC.NURSE ---
D5W discontinued per provider orders. Report given by phone to [employer]ATOR Germaine. RT contacted, preparing to transport to ICU bed 259.
[2025-06-17 16:09] LABS: Troponin-I High Sensitivity 74.8 ng/L (<3.5-17.0)
--- NOTE | 2025-06-17 18:08 | HO.ANESPROP2 ---
HPI - Anesthesia Eval Consult details Narrative: Left ureter obstruction PMFSH Active Problems Active Problems: All Active Problems Non-insulin dependent type 2 diabetes mellitus (Acute) Hydronephrosis with renal calculous obstruction (Acute) Acute hypernatremia (Acute) Acute renal failure (Acute) Septic shock (Acute) Acute on chronic respiratory failure with hypoxia and hypercapnia (Acute) Acute encephalopathy (Acute) Iron deficiency anemia (Acute) COVID (Acute) Hypoxia (Acute) COVID-19 (Acute) Past Medical History Medical History (Updated 06/17/25 @ 15:59 by Romaine Lazaro MD) Non-insulin dependent type 2 diabetes mellitus Aortic stenosis Congestive heart failure Seizure Dementia Seizure COPD (chronic obstructive pulmonary disease) Peripheral neuropathy HLD (hyperlipidemia) CVA (cerebral vascular accident) Heart failure, unspecified Family History Family history of problems with anesthesia: No Surgical History History of Problems with Anesthesia: No Social History Social History Household Members: Unknown / Unable to assess Housing: Unknown / Unable to assess Housing Other:: prison Do you presently have visiting nurse or other home services: Yes Alcohol intake: former Comment: non ambulatory pt Patient Tobacco Use Status: Never used Tobacco Second Hand Smoke Exposure: No Advance Directives Date on File: 09/15/23 service: No Meds Allergies Allergy/AdvReac Type Severity Reaction Status Date / Time Penicillins Allergy Unknown Verified 06/17/25 13:29 piroxicam Allergy Unknown Verified 06/17/25 13:29 shrimp Allergy Hives Verified 06/17/25 13:29 Sulfa (Sulfonamide Allergy Unknown Verified 06/17/25 13:29 Antibiotics) Active Medications: Current Medications Heparin Sodium (Porcine) (Heparin Sodium,Porcine 5,000 Unit/Ml Vial) 5,000 unit SUBCUT Q8H MARC Last Admin: 06/17/25 17:08 Dose: 5,000 unit Norepinephrine Bitartrate (Levophed) 8 mg in 250 mls @ 0 mls/hr IVCONT .Q0M MARC; Protocol Last Titration: 06/17/25 18:06 Dose: 0.11 mcg/kg/min, 13.24 mls/hr Nystatin (Nystatin Powder 15 Gm Bottle) 1 appl TOPICAL BID MARC; Protocol Home Medications ?Medication ?Instructions ?Recorded ?Confirmed ?Last Taken ?Type acetaminophen 500 mg tablet 500 mg PO BID 01/10/24 04/17/25 11/10/24 History albuterol sulfate 2.5 mg/3 mL 2.5 mg inhalation Q6H PRN 08/02/23 11/07/24 Unknown History (0.083 %) solution for nebulization Shortness Of Breath Or Wheezing aspirin 81 mg tablet,delayed 81 mg PO DAILY 08/02/23 11/07/24 06/02/24 History release atorvastatin 80 mg tablet 80 mg PO BEDTIME 08/02/23 11/07/24 06/02/24 History cholecalciferol (vitamin D3) 25 25 mcg PO DAILY 08/02/23 11/07/24 06/02/24 History mcg (1,000 unit) tablet clopidogrel 75 mg tablet 75 mg PO DAILY 08/02/23 11/07/24 06/02/24 History cyanocobalamin (vitamin B-12) 500 500 mcg PO DAILY 08/02/23 11/07/24 06/02/24 History mcg tablet fluoxetine 20 mg capsule 20 mg PO DAILY 08/02/23 11/07/24 06/02/24 History folic acid 400 mcg tablet 0.4 mg PO DAILY 08/02/23 11/07/24 06/02/24 History glipizide 5 mg tablet, extended 5 mg PO DAILY 08/02/23 06/14/24 06/02/24 History release 24 hr metoprolol succinate 25 mg 25 mg PO DAILY 08/02/23 11/07/24 06/02/24 History tablet,extended release 24 hr oxybutynin chloride 5 mg 5 mg PO DAILY 08/02/23 11/07/24 06/02/24 History tablet,extended release 24 hr pregabalin 150 mg capsule 150 mg PO TID 08/02/23 11/07/24 06/02/24 History trazodone 100 mg tablet 100 mg PO BEDTIME 08/02/23 11/07/24 06/02/24 History zinc oxide 20 % topical ointment 1 appl topical DAILY PRN Wound 08/02/23 11/07/24 Unknown History Healing fluticasone propionate 220 1 puff inhalation BID 09/10/23 11/07/24 06/02/24 History mcg/actuation HFA aerosol inhaler levetiracetam 250 mg tablet 250 mg PO BID 09/10/23 11/07/24 06/02/24 History (Keppra) loperamide 2 mg capsule 2 mg PO QID PRN Diarrhea 09/10/23 11/07/24 Unknown History albuterol sulfate 90 mcg/actuation 2 puff inhalation Q6H PRN wheezing 04/18/24 11/07/24 Unknown History aerosol inhaler (Ventolin HFA) methimazole 5 mg tablet 2.5 mg PO DAILY 04/18/24 11/07/24 06/02/24 History cranberry extract 250 mg capsule 250 mg PO DAILY 11/07/24 11/07/24 Unknown History docusate sodium 100 mg capsule 100 mg PO BID 11/07/24 11/07/24 Unknown History furosemide 40 mg tablet 20 mg PO BID 11/07/24 11/07/24 Unknown History glycerin (adult) 1 supp DC DAILY PRN Constipation 11/07/24 11/07/24 Unknown History polyethylene glycol 3350 17 17 g PO DAILY 11/07/24 11/07/24 Unknown History gram/dose oral powder (Gavilax) Exam Height,Weight and Vital Signs: Height 5 ft 3 in Weight 64.2 kg Last Vital Signs Temp 96.8 F 06/17/25 16:50 Pulse 53 06/17/25 18:06 Resp 19 06/17/25 16:50 BP 96/51 L 06/17/25 18:06 Pulse Ox 99 06/17/25 16:50 O2 Del Method Nasal Cannula 06/17/25 16:50 O2 Flow Rate 2 06/17/25 16:50 Oxygen Flow Rate 2 06/17/25 12:56 Pertinent Lab Results Pertinent Lab Results: Laboratory Tests 06/17/25 06/17/25 06/17/25 13:07 13:10 13:14 WBC 9.0 RBC 4.56 D Hgb 12.5 D Hct 42.2 D MCV 92.5 MCH 27.4 MCHC 29.6 L RDW 16.9 H Plt Count 140 L MPV 11.6 Immature Gran % (Auto) 0.2 Neut % (Auto) 75.3 H Lymph % (Auto) 13.0 L [place] % (Auto) 11.2 H Eos % (Auto) 0.0 Baso % (Auto) 0.3 Lymph # (Auto) 1.2 [place] # (Auto) 1.0 Eos # (Auto) 0.0 Baso # (Auto) 0.0 Abs Immat Gran (auto) 0.02 Absolute Neuts (auto) 6.8 Absolute Nucleated RBC 0.000 Nucleated RBC % (auto) 0.0 PT 15.1 H INR 1.2 H O2 Saturation 99.0 ABG pH at Pt Temp 7.39 ABG pCO2 at Pt Temp 84 H* ABG pO2 at Pt Temp 106 ABG HCO3 51 H ABG Base Excess (Actual) 21.7 VBG pH VBG pCO2 VBG pO2 VBG HCO3 VBG O2 Saturation VBG Base Excess Sodium 159 H Potassium 4.8 Chloride 112 H Carbon Dioxide 40 H* D Anion Gap 12 BUN 65 H Creatinine 2.80 H Estim Creat Clear Calc 14.6 Estimated GFR 16 Random Glucose 192 H Lactic Acid 1.3 Calcium 10.4 H D Magnesium 2.6 Total Bilirubin 0.3 Direct Bilirubin 0.2 AST 20 ALT 6 Alkaline Phosphatase 55 Ammonia 40 Troponin I High Sens 78.6 H* D Total Protein 8.7 H Albumin 4.1 Procalcitonin 0.08 TSH 0.08 L Free T4 0.95 Urine Color Urine Appearance Urine pH Ur Specific [place] Urine Protein Urine Glucose (UA) Urine Ketones Urine Blood Urine Nitrite Ur Leukocyte Esterase Urine RBC Urine WBC Ur Squamous Epith Cells Ur Transition Epith Cell Urine Bacteria Hyaline Casts Urine Yeast Influenza Type A (PCR) NEGATIVE Influenza Type B (PCR) NEGATIVE RSV RNA Qual (PCR) NEGATIVE SARS-CoV-2 RNA (RT-PCR) NEGATIVE 06/17/25 06/17/25 06/17/25 13:19 14:36 15:42 WBC RBC Hgb Hct MCV MCH MCHC RDW Plt Count MPV Immature Gran % (Auto) Neut % (Auto) Lymph % (Auto) [place] % (Auto) Eos % (Auto) Baso % (Auto) Lymph # (Auto) [place] # (Auto) Eos # (Auto) Baso # (Auto) Abs Immat Gran (auto) Absolute Neuts (auto) Absolute Nucleated RBC Nucleated RBC % (auto) PT INR O2 Saturation ABG pH at Pt Temp ABG pCO2 at Pt Temp ABG pO2 at Pt Temp ABG HCO3 ABG Base Excess (Actual) VBG pH 7.33 VBG pCO2 80 VBG pO2 64 VBG HCO3 42 H VBG O2 Saturation 87.0 VBG Base Excess 12.8 Sodium Potassium Chloride Carbon Dioxide Anion Gap BUN Creatinine Estim Creat Clear Calc Estimated GFR Random Glucose Lactic Acid Calcium Magnesium Total Bilirubin Direct Bilirubin AST ALT Alkaline Phosphatase Ammonia Troponin I High Sens 74.8 H* Total Protein Albumin Procalcitonin TSH Free T4 Urine Color Yellow Urine Appearance Turbid Urine pH 5.5 Ur Specific [place] 1.015 Urine Protein 30 (1+) H Urine Glucose (UA) Negative Urine Ketones Negative Urine Blood Large (3+) H Urine Nitrite Negative Ur Leukocyte Esterase Large (3+) H Urine RBC 3-5 H Urine WBC >50 H Ur Squamous Epith Cells 6-10 Ur Transition Epith Cell Present Urine Bacteria 3+ Hyaline Casts 3-5 Urine Yeast Present Influenza Type A (PCR) Influenza Type B (PCR) RSV RNA Qual (PCR) SARS-CoV-2 RNA (RT-PCR) 06/17/25 15:47 WBC RBC Hgb Hct MCV MCH MCHC RDW Plt Count MPV Immature Gran % (Auto) Neut % (Auto) Lymph % (Auto) [place] % (Auto) Eos % (Auto) Baso % (Auto) Lymph # (Auto) [place] # (Auto) Eos # (Auto) Baso # (Auto) Abs Immat Gran (auto) Absolute Neuts (auto) Absolute Nucleated RBC Nucleated RBC % (auto) PT INR O2 Saturation ABG pH at Pt Temp ABG pCO2 at Pt Temp ABG pO2 at Pt Temp ABG HCO3 ABG Base Excess (Actual) VBG pH 7.41 VBG pCO2 57 VBG pO2 126 VBG HCO3 36 H VBG O2 Saturation 99.0 VBG Base Excess 10.4 Sodium Potassium Chloride Carbon Dioxide Anion Gap BUN Creatinine Estim Creat Clear Calc Estimated GFR Random Glucose Lactic Acid Calcium Magnesium Total Bilirubin Direct Bilirubin AST ALT Alkaline Phosphatase Ammonia Troponin I High Sens Total Protein Albumin Procalcitonin TSH Free T4 Urine Color Urine Appearance Urine pH Ur Specific [place] Urine Protein Urine Glucose (UA) Urine Ketones Urine Blood Urine Nitrite Ur Leukocyte Esterase Urine RBC Urine WBC Ur Squamous Epith Cells Ur Transition Epith Cell Urine Bacteria Hyaline Casts Urine Yeast Influenza Type A (PCR) Influenza Type B (PCR) RSV RNA Qual (PCR) SARS-CoV-2 RNA (RT-PCR) Airway Mallampati Class: Patient Non-Cooperative TM Dist: >3cm Neck ROM: Full Loose/Missing/Broken Teeth: No Heart: RRR Lungs: CTA Assessment and Plan Assessment Anesthesia Assessment: Anesthesia Plan Discussed and Chart Reviewed Final Anesthetic Review Family History of Problems with Anesthesia: No History of Problems with Anesthesia: No NPO: Yes ASA Class: IV and Emergency Final Preanesthetic Review: No Changes in Pt Med Stat, Meds/Allgs Chart Reviewed, Consent Obtained/Reviewed and Anes Risks/Benef Reviewed Patient Risk: High Procedure Risk: Low Anesthetic Plan Anesthetic Plan: GA Disposition: Inp. Admit - ICU
--- NOTE | 2025-06-17 18:44 | PM.UROCN ---
History of Present Illness Consult details Consult date: 06/17/25 Narrative: 79-year-old bed-bound female with history of a stroke w/ left sided hemiparesis COPD w/, chronic hypoxic, hypercarbic respiratory failure on 2 L nasal cannula at baseline, chronic iron-deficiency anemia, chronic sacral wounds, who presented to the ER from her assisted living for evaluation of unresponsiveness. Pt received fluid hydration and started on Levophed in ED for pressure support. UA c/w UTI. Discussion with ED physician, unofficial evaluation of CT question left hydronephrosis and stone, and need for stent placement. The patient is evaluated in ICU, unresponsive. CTAP official reading and review of films, no renal calculi, Left renal cysts, left lower pole peripelvic cyst. Significant atherosclerotic disease. Bladder changes c/w cystitis. BUN/Creat 65/2.8. Gillespie in place. Review of Systems Review of Systems: Yes Unobtainable due to mental condition PMFSH Past Medical History Medical History Non-insulin dependent type 2 diabetes mellitus Aortic stenosis Congestive heart failure Seizure Dementia Seizure COPD (chronic obstructive pulmonary disease) Peripheral neuropathy HLD (hyperlipidemia) CVA (cerebral vascular accident) Heart failure, unspecified Social History Social History Household Members: Unknown / Unable to assess Housing: Unknown / Unable to assess Housing Other:: retirement Do you presently have visiting nurse or other home services: Yes Alcohol intake: former Comment: non ambulatory pt Patient Tobacco Use Status: Never used Tobacco Second Hand Smoke Exposure: No Advance Directives Date on File: 09/15/23 service: No Meds Allergies Allergy/AdvReac Type Severity Reaction Status Date / Time Penicillins Allergy Unknown Verified 06/17/25 13:29 piroxicam Allergy Unknown Verified 06/17/25 13:29 shrimp Allergy Hives Verified 06/17/25 13:29 Sulfa (Sulfonamide Allergy Unknown Verified 06/17/25 13:29 Antibiotics) Active Medications: Current Medications Heparin Sodium (Porcine) (Heparin Sodium,Porcine 5,000 Unit/Ml Vial) 5,000 unit SUBCUT Q8H MARC Last Admin: 06/17/25 17:08 Dose: 5,000 unit Norepinephrine Bitartrate (Levophed) 8 mg in 250 mls @ 0 mls/hr IVCONT .Q0M MARC; Protocol Last Titration: 06/17/25 18:06 Dose: 0.11 mcg/kg/min, 13.24 mls/hr Nystatin (Nystatin Powder 15 Gm Bottle) 1 appl TOPICAL BID MARC; Protocol Home Medications ?Medication ?Instructions ?Recorded ?Confirmed ?Last Taken ?Type acetaminophen 500 mg tablet 500 mg PO BID 08/02/23 11/07/24 06/02/24 History albuterol sulfate 2.5 mg/3 mL 2.5 mg inhalation Q6H PRN 08/02/23 11/07/24 Unknown History (0.083 %) solution for nebulization Shortness Of Breath Or Wheezing aspirin 81 mg tablet,delayed 81 mg PO DAILY 08/02/23 11/07/24 06/02/24 History release atorvastatin 80 mg tablet 80 mg PO BEDTIME 08/02/23 11/07/24 06/02/24 History cholecalciferol (vitamin D3) 25 25 mcg PO DAILY 08/02/23 11/07/24 06/02/24 History mcg (1,000 unit) tablet clopidogrel 75 mg tablet 75 mg PO DAILY 08/02/23 11/07/24 06/02/24 History cyanocobalamin (vitamin B-12) 500 500 mcg PO DAILY 08/02/23 11/07/24 06/02/24 History mcg tablet fluoxetine 20 mg capsule 20 mg PO DAILY 08/02/23 11/07/24 06/02/24 History folic acid 400 mcg tablet 0.4 mg PO DAILY 08/02/23 11/07/24 06/02/24 History glipizide 5 mg tablet, extended 5 mg PO DAILY 08/02/23 06/14/24 06/02/24 History release 24 hr metoprolol succinate 25 mg 25 mg PO DAILY 08/02/23 11/07/24 06/02/24 History tablet,extended release 24 hr oxybutynin chloride 5 mg 5 mg PO DAILY 08/02/23 11/07/24 06/02/24 History tablet,extended release 24 hr pregabalin 150 mg capsule 150 mg PO TID 08/02/23 11/07/24 06/02/24 History trazodone 100 mg tablet 100 mg PO BEDTIME 08/02/23 11/07/24 06/02/24 History zinc oxide 20 % topical ointment 1 appl topical DAILY PRN Wound 08/02/23 11/07/24 Unknown History Healing fluticasone propionate 220 1 puff inhalation BID 09/10/23 11/07/24 06/02/24 History mcg/actuation HFA aerosol inhaler levetiracetam 250 mg tablet 250 mg PO BID 09/10/23 11/07/24 06/02/24 History (Keppra) loperamide 2 mg capsule 2 mg PO QID PRN Diarrhea 09/10/23 11/07/24 Unknown History albuterol sulfate 90 mcg/actuation 2 puff inhalation Q6H PRN wheezing 04/18/24 11/07/24 Unknown History aerosol inhaler (Ventolin HFA) methimazole 5 mg tablet 2.5 mg PO DAILY 04/18/24 11/07/24 06/02/24 History cranberry extract 250 mg capsule 250 mg PO DAILY 11/07/24 11/07/24 Unknown History docusate sodium 100 mg capsule 100 mg PO BID 11/07/24 11/07/24 Unknown History furosemide 40 mg tablet 20 mg PO BID 11/07/24 11/07/24 Unknown History glycerin (adult) 1 supp [place] DAILY PRN Constipation 11/07/24 11/07/24 Unknown History polyethylene glycol 3350 17 17 g PO DAILY 11/07/24 11/07/24 Unknown History gram/dose oral powder (Gavilax) Physical Exam Vital Signs: Vital Signs: Last Vital Signs Temp 96.8 F 06/17/25 16:50 Pulse 53 06/17/25 18:06 Resp 19 06/17/25 16:50 BP 96/51 L 06/17/25 18:06 Pulse Ox 99 06/17/25 16:50 O2 Del Method Nasal Cannula 06/17/25 16:50 O2 Flow Rate 2 06/17/25 16:50 Oxygen Flow Rate 2 06/17/25 12:56 BMI result Body Mass Index 25.1 HEENT: Head: Yes normal to inspection, Yes normocephalic and Yes atraumatic Neck: Neck: Yes normal visual inspection and Yes trachea midline Chest: Chest palpation & inspection: normal inspection of the chest GI: Inspection: Yes normal to inspection Palpation (GI): Soft to palpation : Other: gillespie in place, urine mario Results Labs 06/17/25 13:10 06/17/25 13:10 Labs: Abnormal lab results 06/17/25 06/17/25 06/17/25 Range/Units 13:07 13:10 13:19 MCHC 29.6 L (31.0-35.0) g/dl RDW 16.9 H (11.0-16.0) % Plt Count 140 L (160-400) X10*3/uL Neut % (Auto) 75.3 H (45-73) % Lymph % (Auto) 13.0 L (20-40) % [place] % (Auto) 11.2 H (2-11) % PT 15.1 H (11.2-13.5) SEC INR 1.2 H (0.9-1.1) ABG pCO2 at Pt Temp 84 H* (32-45) mmHg ABG HCO3 51 H (22-26) mmol/L VBG HCO3 42 H (22-26) mmol/L Sodium 159 H (135-145) mmol/L Chloride 112 H (96-108) mmol/L Carbon Dioxide 40 H* D (22-29) mmol/L BUN 65 H (9-16) mg/dL Creatinine 2.80 H (0.5-1.4) mg/dL Random Glucose 192 H (60-115) mg/dL Calcium 10.4 H D (8.4-10.2) mg/dL Troponin I High Sens 78.6 H* D (<3.5-17.0) ng/L Total Protein 8.7 H (6.5-8.0) g/dL TSH 0.08 L (0.32-4.0) uIU/mL Urine Protein (Neg-Trace) mg/dL Urine Blood (Negative) Ur Leukocyte Esterase (Negative) Urine RBC (0-2) /HPF Urine WBC (0-5) /HPF 06/17/25 06/17/25 06/17/25 Range/Units 14:36 15:42 15:47 MCHC (31.0-35.0) g/dl RDW (11.0-16.0) % Plt Count (160-400) X10*3/uL Neut % (Auto) (45-73) % Lymph % (Auto) (20-40) % [place] % (Auto) (2-11) % PT (11.2-13.5) SEC INR (0.9-1.1) ABG pCO2 at Pt Temp (32-45) mmHg ABG HCO3 (22-26) mmol/L VBG HCO3 36 H (22-26) mmol/L Sodium (135-145) mmol/L Chloride (96-108) mmol/L Carbon Dioxide (22-29) mmol/L BUN (9-16) mg/dL Creatinine (0.5-1.4) mg/dL Random Glucose (60-115) mg/dL Calcium (8.4-10.2) mg/dL Troponin I High Sens 74.8 H* (<3.5-17.0) ng/L Total Protein (6.5-8.0) g/dL TSH (0.32-4.0) uIU/mL Urine Protein 30 (1+) H (Neg-Trace) mg/dL Urine Blood Large (3+) H (Negative) Ur Leukocyte Esterase Large (3+) H (Negative) Urine RBC 3-5 H (0-2) /HPF Urine WBC >50 H (0-5) /HPF Short CBC 06/17/25 Range/Units 13:10 WBC 9.0 (4.8-10.8) X10*3/uL Hgb 12.5 D (12.0-16.0) g/dl Hct 42.2 D (37.0-47.0) % Plt Count 140 L (160-400) X10*3/uL BMP 06/17/25 13:10 Sodium 159 H Potassium 4.8 Chloride 112 H Carbon Dioxide 40 H* D BUN 65 H Creatinine 2.80 H Calcium 10.4 H D Liver Function 06/17/25 Range/Units 13:10 Total Bilirubin 0.3 (0.0-1.0) mg/dL Direct Bilirubin 0.2 (0.0-0.5) mg/dL AST 20 (5-31) U/L ALT 6 (0-31) U/L Alkaline Phosphatase 55 (39-117) U/L Albumin 4.1 (3.5-5.0) g/dL Urine 06/17/25 Range/Units 14:36 Urine Color Yellow Urine Appearance Turbid Urine pH 5.5 (5.0-9.0) Ur Specific [place] 1.015 (1.005-1.025) Urine Protein 30 (1+) H (Neg-Trace) mg/dL Urine Glucose (UA) Negative (Negative) mg/dL Imaging Abdomen CT scan report/results: report reviewed and image reviewed CT scan - pelvis: report reviewed and image reviewed Additional studies: Date of Service: 06/17/25 Reason for Exam: sepsis, KIRAN EXAMINATION: CT ABDOMEN PELVIS WITHOUT IV CONTRAST HISTORY: sepsis, KIRAN COMPARISON: Previous CT of the abdomen and pelvis most recent May 2024 TECHNIQUE: CT scan of the abdomen and pelvis was performed without contrast using standard departmental protocol. Coronal and sagittal reformatted images were generated and reviewed. This CT exam was performed with one or more of the following dose reduction techniques: automated exposure control, adjustment of the mA and/or kV according to patient size, use of iterative reconstruction technique. DLP: 852 mGy-cm FINDINGS: LIVER: The liver is normal in size and contour. The liver has an unremarkable unenhanced appearance. GALLBLADDER / BILE DUCTS: Single tiny gallstone. The gallbladder is otherwise unremarkable. There is no intra or extrahepatic biliary ductal dilatation. SPLEEN: The spleen is normal in size and has an unremarkable unenhanced appearance. PANCREAS: The pancreas has an unremarkable unenhanced appearance. ADRENAL GLANDS: Stable low-attenuation left adrenal nodule. Hounsfield units without contrast measure 7 and this may represent a benign lipid rich adenoma. Slight nodular thickening of the right adrenal gland unchanged. KIDNEYS/RETROPERITONEUM: 2 high attenuation left renal lesions measuring up to 1.3 cm probably represents hyperdense cysts. Left lower pole peripelvic cyst. No renal calculi are identified. There is no hydronephrosis. LYMPH NODES: No retroperitoneal lymphadenopathy is identified in the abdomen or pelvis. VASCULATURE: Severe atherosclerotic disease. MESENTERY/PERITONEUM: Trace fluid in the pelvis. There is no free intraperitoneal gas. STOMACH: Normal. SMALL BOWEL: The small bowel is normal in caliber. COLON: Severe constipation. Diverticulosis of the colon. No evidence of diverticulitis. APPENDIX: Normal. URINARY BLADDER/PELVIC ORGANS: Gillespie catheter in the bladder. Small amount of fluid and air in the bladder. Diffuse bladder wall thickening and perivesicular fat stranding. Differential would include cystitis and changes from bladder outlet obstruction. Correlation with urinalysis recommended. There is more focal wall thickening in the posterior dome of the bladder and imaging follow-up is recommended. Right pelvic calcifications similar to prior exams probably representing a small calcified uterine fibroid. BONES / SOFT TISSUES: Diastases of the rectus muscles and multiple umbilical and paraumbilical hernias containing fat. Spondylolysis spondylolisthesis and degenerative disc disease at L5-S1 unchanged. Lucency in the mid L5 vertebral body, question representing large Schmorl's node. This is unchanged. Mild L1 vertebral body compression fracture. This appears unchanged. Degenerative changes of the spine and hips. Increased subchondral sclerosis in both femoral heads suggestive of bilateral AVN. IMPRESSION: Severe constipation. Gillespie catheter in the bladder with small amount of remaining fluid and air. Bladder wall thickening. Question cystitis versus changes from bladder outlet obstruction. Correlation with urinalysis recommended. Diverticulosis of the colon. No evidence of diverticulitis. Severe atherosclerotic disease. Left renal hyperdense and simple cysts. Probable tiny gallstone. Assessment and Plan (1) Acute renal failure: Qualifiers: Acute renal failure type: unspecified Qualified Code(s): N17.9 - Acute kidney failure, unspecified Status: Acute (2) Septic shock: Qualifiers: Sepsis type: sepsis due to unspecified organism Qualified Code(s): A41.9 - Sepsis, unspecified organism; R65.21 - Severe sepsis with septic shock Status: Acute (3) Cystitis: Status: Acute Plan IV antibiotic, hemodynamic support per ICU No surgical intervention indicated at this time Procedures Date of Service Date of Service: 06/17/25
--- NOTE | 2025-06-17 18:47 | PC.NURSE ---
The patient arrived at the ICU approx. 1635 from ED.? ?Pt obtunded, opened eyes occasionally to painful stimuli,?not following commands. On 1-2L NC, fine crackles Bl lower.? Sinus rhythm- tico on tele, on levophed gtt-per SEP. Unknown LBM, hypoactive BS, NPO; Curry in place patent/draining,. Impaired Skin integrity-see shift assessment Peripheral IV x2
--- NOTE | 2025-06-17 19:00 | HO.SKINPHOTO ---
Location: right lateral malleolous Location: right inner foot Location: left inner foot Location: Sacrum/coccyx Location: Abdominal fold
--- NOTE | 2025-06-17 19:00 | PHA.MEDREC ---
Addendum entered by [facility] 06/17/25 19:07: Med rec reviewed Original Note: Pharmacy Consult ? Medication Reconciliation Pharmacy has completed the medication reconciliation. Pt unable to speak to, came from facility but had no paperwork in chart; called facility to obtain pt medical records but facility stated they currently does not reside in their facility. Tried calling pt contact [facility] [phone] but was unsuccessful. We utilized claims to confirm pt med rec.
[2025-06-17 19:44] LABS: Venous Blood Gas Refer to POC result
[2025-06-17 19:44] LABS: VBG HCO3 36 mmol/L (22-26); VBG O2 % Saturation 78.0 %
[2025-06-17 19:49] LABS: Glucose, Whole Blood 143 mg/dL (60-115)
[2025-06-17 19:56] LABS: Anion Gap 13 (12-20); Blood Urea Nitrogen 59 mg/dL (9-16); Calcium 9.1 mg/dL (8.4-10.2); Carbon Dioxide 32 mmol/L (22-29); Chloride 115 mmol/L (96-108); Creatinine Clr Calc Pharmacy 16.6; Estimated Glomerular Filt Rate 19; Magnesium 2.3 mg/dL (1.6-2.6); Potassium 4.8 mmol/L (3.3-5.1); Sodium 155 mmol/L (135-145)
[2025-06-17] MEDS: fentaNYL citrate/NS 1,000 MCG/100 ML PLAST..BAG 5 MCG IVCONT (20:22)
[2025-06-17] MEDS: Albuterol/Iprat 2.5/0.5MG 3 ML AMPUL.NEB INHALE (20:23)
[2025-06-17] MEDS: Albuterol Sulfate 2.5 MG, Albuterol Sulfate (0.083%) 2.5 MG 5 MG INHALE (20:23)
[2025-06-17] MEDS: Albuterol Sulfate (0.083%) 2.5 MG/3 ML VIAL.NEB 5 MG INHALE (20:24)
--- NOTE | 2025-06-17 21:24 | W.PM.CCHP ---
Procedures Date of Service Date of Service: 06/17/25 <Debora Camacho NP - Last Filed: 06/17/25 21:38> 06/18/25 <Romaine Lazaro MD - Last Filed: 06/18/25 10:01> Central Line Placement Right IJ: Central Line Comments: Patient requiring high amount of vasopressor support, emergent central line obtained. Right internal jugular triple lumen central venous catheter placed in usual sterile conditions under ultrasound guidance for appropriate vascular access without immediate complications. Central line position verified with Chest XRAY. <Debora Camacho NP - Last Filed: 06/17/25 21:38> Consent for Procedure: Emergent-no informed consent obtained <Debora Camacho NP - Last Filed: 06/17/25 21:38> Time out performed: Yes <Debora Camacho NP - Last Filed: 06/17/25 21:38> Sterile Technique Used: Yes <Debora Camacho NP - Last Filed: 06/17/25 21:38> Patient placed on monitor/pulse ox: Yes <Debora Camacho NP - Last Filed: 06/17/25 21:38> prep: mask, gown and gloves <Debora Camacho NP - Last Filed: 06/17/25 21:38> Central line prep: Chlorhexidine scrub <Debora Camacho NP - Last Filed: 06/17/25 21:38> Local anesthesia used: other anesthetic (Patient is on propofol for ventilatory support) <Debora Camacho NP - Last Filed: 06/17/25 21:38> Ultrasound used for placement: Yes <Debora Camacho NP - Last Filed: 06/17/25 21:38> Central line lumen inserted: triple <Debora Camacho NP - Last Filed: 06/17/25 21:38> Post procedure: sutured in place, good blood return, all ports aspirated, flushed, capped and sterile dressing applied <Debora Camacho NP - Last Filed: 06/17/25 21:38> Post procedure x-ray: tip of catheter in good position and no pneumothorax seen <Debora Camacho NP - Last Filed: 06/17/25 21:38> Patient tolerated procedure: well and no complications <Debora Camacho NP - Last Filed: 06/17/25 21:38> Complications: none <Debora Camacho NP - Last Filed: 06/17/25 21:38> Intubation Intubation Comments: Patient obtunded, unable to protect airway. Venous gas showing acute hypercapnic respiratory failure.? Patient intubated with 7.5 cuffed ET tube under glide scope guidance with visualization of vocal cords, without immediate complications. ET tube position verified with Chest XRAY. <Debora Camacho NP - Last Filed: 06/17/25 21:38> Consent for Procedure: Emergent-no informed consent obtained <Debora Camacho NP - Last Filed: 06/17/25 21:38> Time out performed: Yes <Debora Camacho NP - Last Filed: 06/17/25 21:38> Sedative: propofol <Debora Camacho NP - Last Filed: 06/17/25 21:38> Mg given: 70 <Debora Camacho NP - Last Filed: 06/17/25 21:38> Laryngoscope: fiber optic video scope <Debora Camacho NP - Last Filed: 06/17/25 21:38> ET tube size: 7.5 <Debora Camacho NP - Last Filed: 06/17/25 21:38> ET tube uncuffed: No <Debora Camacho NP - Last Filed: 06/17/25 21:38> Tube secured depth (cm): 23 <Debora Camacho NP - Last Filed: 06/17/25 21:38> Tube secured location: lips <Debora Camacho NP - Last Filed: 06/17/25 21:38> Tube placement confirmation: visualized tube passing through cords, equal breath sounds bilaterally, no breath sounds over epigastrium and confirmation by capnometry <Debora Camacho NP - Last Filed: 06/17/25 21:38> Patient tolerated procedure: well and no complications <Debora Camacho NP - Last Filed: 06/17/25 21:38> Intubation complications: none <Debora Camacho NP - Last Filed: 06/17/25 21:38>
[2025-06-17 21:50] LABS: VBG HCO3 35 mmol/L (22-26); VBG O2 % Saturation 99.0 %
[2025-06-17 21:54] LABS: Venous Blood Gas Refer to POC result
[2025-06-17] MEDS: Chlorhexidine Gluc Oral Rinse 15 ML MOUTHWASH BUCCAL (22:53)
[2025-06-17 23:49] LABS: Glucose, Whole Blood 233 mg/dL (60-115)
[2025-06-18] VITALS (58 sets, daily range): BP systolic 77–148; BP diastolic 36–59; PULSE 52–100; RESP 13–30; TEMP 34.1–36.8; O2SAT 90–99; BMI 21.8
[2025-06-18] MEDS: fentaNYL citrate/NS 1,000 MCG/100 ML PLAST..BAG 5 MCG IVCONT ×2 (03:47→23:09)
[2025-06-18 05:14] LABS: VBG HCO3 33 mmol/L (22-26); VBG O2 % Saturation 85.0 %
[2025-06-18 05:14] LABS: MANUAL DIFF FLAG NO
[2025-06-18 05:16] LABS: Hematocrit 32.9 % (37.0-47.0); Hemoglobin 10.1 g/dl (12.0-16.0); Imm Gran Abs Auto 0.05 X10*3/uL (0.00-0.03); Imm Gran Pct Auto 0.3 % (0.0-0.4); Lymphocytes Absolute Auto 2.9 X10*3/uL (1.2-4.9); Mean Corpuscular HGB Conc 30.7 g/dl (31.0-35.0); Mean Corpuscular Hemoglobin 27.2 pg (27.0-33.0); Mean Corpuscular Volume 88.4 fL (80.0-98.0); NRBC Abs Auto 0.000 X10*3/uL (0.0-0.012); NRBC Pct Auto 0.0 /100WBC (0.0-0.2); Platelet Count 122 X10*3/uL (160-400); Red Blood Count 3.72 X10*6/uL (4.20-5.50); White Blood Count 16.8 X10*3/uL (4.8-10.8)
[2025-06-18 05:33] LABS: Alanine Aminotransferase < 6 U/L (0-31); Albumin Level 3.0 g/dL (3.5-5.0); Alkaline Phosphatase 43 U/L (39-117); Anion Gap 13 (12-20); Aspartate Amino Transferase 20 U/L (5-31); Blood Urea Nitrogen 53 mg/dL (9-16); Calcium 8.6 mg/dL (8.4-10.2); Carbon Dioxide 28 mmol/L (22-29); Chloride 115 mmol/L (96-108); Creatinine Clr Calc Pharmacy 20.1; Estimated Glomerular Filt Rate 26; Magnesium 1.9 mg/dL (1.6-2.6); Potassium 3.3 mmol/L (3.3-5.1); Sodium 153 mmol/L (135-145); Total Protein 6.2 g/dL (6.5-8.0)
--- NOTE | 2025-06-18 06:08 | PC.NURSE ---
This RN took over care of patient at approximately 1900. Upon initial assessment, the patient was found to be stuporus/ minimally responsive to noxious stimuli, on 2L oxymask w/ SpO2 98-100%. Sinus tico on telemetry, HR 50s. PLY BANDER Janice made aware of patients current neuro status at this time and VBG ordered and performed. The patient was found to be in acute hypercapnic respiratory failure. Decision made to intubate by PLY BANDER. Patient given a total of propofol 70 mg IVP for intubation, propofol drip started for sedation. ETT #7.5, 23 cm at lip. On AC/VC+ settings, FiO2 titrated down as tolerated. Levophed running and titrated to maintain MAP >65. R IJ triple lumen placed by PLY BANDER following intubation. OG tube inserted, secured at 60 cm at lip. All lines and tube placements confirmed with portable chest xray. Family notified / HCP Mariely of plan of care and patient status. Bed locked in lowest position, alarm on. Refer to MAR/flowsheet for further details.
[2025-06-18] MEDS: Potassium Phosphate/NS 15 MMOL/250 ML PLAST..BAG 62.5 MMOL IV ×2 (06:16→10:01)
[2025-06-18] MEDS: Albuterol/Iprat 2.5/0.5MG 3 ML AMPUL.NEB INHALE ×4 (07:42→19:10)
[2025-06-18] MEDS: Albumin Human 25 % 100 ML IV ×3 (08:03→20:06)
[2025-06-18] MEDS: Chlorhexidine Gluc Oral Rinse 15 ML MOUTHWASH BUCCAL ×3 (08:03→20:06)
[2025-06-18] MEDS: 0.9 % Sodium Chloride Flush 3 ML SYRINGE IVFLUSH ×3 (08:04→23:09)
[2025-06-18 08:44] LABS: Venous Blood Gas Refer to POC result
--- NOTE | 2025-06-18 09:57 | MHC.CM.PN ---
IMM DELIVERED CM SPOKE WITH HCP TO OBTAIN INFORMATION PT IS INTUBATED IN ICU. LIVES WITH HCP/13/02 CAREGIVER LUCIANO FIGUEROA ([phone]) AND IS ACTIVE WITH [facility] [employer]( [facility] [employer]. [phone]) PT IS ESSENTIALLY BEDBOUND AND DEPENDENT WITH CARE. PT IS ON 1-2 LITERS OF 02 AT BASELINE VIA [facility]. + HCP ON FILE PCP DR ANALI FIGUEROA. DP: HOME WITH RESUMPTION OF SERVICES. PT WILL NEED BLS TRANSPORT. [employer] [facility] SHELELY REQUESTS A CALL WHEN PT DC'S. CM WILL CONTINUE TO FOLLOW FOR ANY CHANGE TO DC PLAN/NEEDS.
--- NOTE | 2025-06-18 10:01 | P.PNCC_ITS ---
Subjective Subjective Date of Service: 06/18/25 Interval History: 79-year-old lady with underlying history of CVA with left-sided hemiparesis, COPD on 2 L at baseline, diabetes mellitus, seizure disorder, chronic sacral decubitus wound, minimally verbal and nonambulatory presented to ER on 06/17/2025 for evaluation of lethargy and hypotension. On ER evaluation patient with IV fluid resuscitation requiring pressor support. She was started empiric antibiotics. Initial concern for obstructive renal calculus was not confirmed on closer review of her CT abdomen. Patient was admitted the intensive care unit for pressor support. Overnight 06/17/2025 patient with pulmonary aspiration requiring intubation ventilatory support. Overnight events as above. Critical Care Time (minutes): 60 Physical Exam 2 Vital Signs: Vital Signs: Last Vital Signs Temp 97.5 F 06/18/25 09:00 Pulse 62 06/18/25 09:00 Resp 15 06/18/25 09:00 BP 125/48 L 06/18/25 09:00 Pulse Ox 94 06/18/25 09:00 O2 Del Method Mechanical Ventil ation 06/18/25 09:00 O2 Flow Rate 2 06/17/25 20:00 FiO2 40 06/18/25 09:00 Oxygen Flow Rate 2 06/17/25 12:56 BMI result Body Mass Index 21.8 Const: General: no acute distress and other (Sedated on ventilatory support) Eyes: Sclerae: sclerae normal EOM: EOMs intact bilaterally Neck: Neck: Yes no lymphadenopathy, Yes trachea midline and Yes supple Resp: Auscultation: crackles (Mild bilateral) Cardio: Rate: regular rate Rhythm: regular rhythm Heart sounds: no gallops, no murmurs and no rubs GI: Palpation (GI): Soft to palpation and Other GI palpation findings present ( Nontender) Auscultation: normal bowel sounds Extrem: General: Yes no pedal edema, No clubbing and No cyanosis Objective Data Labs 06/18/25 05:01 06/18/25 05:01 Labs: Laboratory Results - last 24 hr 06/17/25 06/17/25 06/17/25 13:07 13:10 13:14 WBC 9.0 RBC 4.56 D Hgb 12.5 D Hct 42.2 D MCV 92.5 MCH 27.4 MCHC 29.6 L RDW 16.9 H Plt Count 140 L MPV 11.6 Immature Gran % (Auto) 0.2 Neut % (Auto) 75.3 H Lymph % (Auto) 13.0 L [place] % (Auto) 11.2 H Eos % (Auto) 0.0 Baso % (Auto) 0.3 Lymph # (Auto) 1.2 [place] # (Auto) 1.0 Eos # (Auto) 0.0 Baso # (Auto) 0.0 Abs Immat Gran (auto) 0.02 Absolute Neuts (auto) 6.8 Absolute Nucleated RBC 0.000 Nucleated RBC % (auto) 0.0 PT 15.1 H INR 1.2 H O2 Saturation 99.0 ABG pH at Pt Temp 7.39 ABG pCO2 at Pt Temp 84 H* ABG pO2 at Pt Temp 106 ABG HCO3 51 H ABG Base Excess (Actual) 21.7 VBG pH VBG pCO2 VBG pO2 VBG HCO3 VBG O2 Saturation VBG Base Excess Sodium 159 H Potassium 4.8 Chloride 112 H Carbon Dioxide 40 H* D Anion Gap 12 BUN 65 H Creatinine 2.80 H Estim Creat Clear Calc 14.6 Estimated GFR 16 POC Glucose Random Glucose 192 H Lactic Acid 1.3 Calcium 10.4 H D Phosphorus Magnesium 2.6 Total Bilirubin 0.3 Direct Bilirubin 0.2 AST 20 ALT 6 Alkaline Phosphatase 55 Ammonia 40 Troponin I High Sens 78.6 H* D Total Protein 8.7 H Albumin 4.1 Procalcitonin 0.08 TSH 0.08 L Free T4 0.95 Urine Color Urine Appearance Urine pH Ur Specific [place] Urine Protein Urine Glucose (UA) Urine Ketones Urine Blood Urine Nitrite Ur Leukocyte Esterase Urine RBC Urine WBC Ur Squamous Epith Cells Ur Transition Epith Cell Urine Bacteria Hyaline Casts Urine Yeast Influenza Type A (PCR) NEGATIVE Influenza Type B (PCR) NEGATIVE RSV RNA Qual (PCR) NEGATIVE SARS-CoV-2 RNA (RT-PCR) NEGATIVE 06/17/25 06/17/25 06/17/25 13:19 14:36 15:42 WBC RBC Hgb Hct MCV MCH MCHC RDW Plt Count MPV Immature Gran % (Auto) Neut % (Auto) Lymph % (Auto) [place] % (Auto) Eos % (Auto) Baso % (Auto) Lymph # (Auto) [place] # (Auto) Eos # (Auto) Baso # (Auto) Abs Immat Gran (auto) Absolute Neuts (auto) Absolute Nucleated RBC Nucleated RBC % (auto) PT INR O2 Saturation ABG pH at Pt Temp ABG pCO2 at Pt Temp ABG pO2 at Pt Temp ABG HCO3 ABG Base Excess (Actual) VBG pH 7.33 VBG pCO2 80 VBG pO2 64 VBG HCO3 42 H VBG O2 Saturation 87.0 VBG Base Excess 12.8 Sodium Potassium Chloride Carbon Dioxide Anion Gap BUN Creatinine Estim Creat Clear Calc Estimated GFR POC Glucose Random Glucose Lactic Acid Calcium Phosphorus Magnesium Total Bilirubin Direct Bilirubin AST ALT Alkaline Phosphatase Ammonia Troponin I High Sens 74.8 H* Total Protein Albumin Procalcitonin TSH Free T4 Urine Color Yellow Urine Appearance Turbid Urine pH 5.5 Ur Specific [place] 1.015 Urine Protein 30 (1+) H Urine Glucose (UA) Negative Urine Ketones Negative Urine Blood Large (3+) H Urine Nitrite Negative Ur Leukocyte Esterase Large (3+) H Urine RBC 3-5 H Urine WBC >50 H Ur Squamous Epith Cells 6-10 Ur Transition Epith Cell Present Urine Bacteria 3+ Hyaline Casts 3-5 Urine Yeast Present Influenza Type A (PCR) Influenza Type B (PCR) RSV RNA Qual (PCR) SARS-CoV-2 RNA (RT-PCR) 06/17/25 06/17/25 06/17/25 15:47 19:19 19:29 WBC RBC Hgb Hct MCV MCH MCHC RDW Plt Count MPV Immature Gran % (Auto) Neut % (Auto) Lymph % (Auto) [place] % (Auto) Eos % (Auto) Baso % (Auto) Lymph # (Auto) [place] # (Auto) Eos # (Auto) Baso # (Auto) Abs Immat Gran (auto) Absolute Neuts (auto) Absolute Nucleated RBC Nucleated RBC % (auto) PT INR O2 Saturation ABG pH at Pt Temp ABG pCO2 at Pt Temp ABG pO2 at Pt Temp ABG HCO3 ABG Base Excess (Actual) VBG pH 7.41 VBG pCO2 57 VBG pO2 126 VBG HCO3 36 H VBG O2 Saturation 99.0 VBG Base Excess 10.4 Sodium 155 H Potassium 4.8 Chloride 115 H Carbon Dioxide 32 H Anion Gap 13 BUN 59 H Creatinine 2.47 H Estim Creat Clear Calc 16.6 Estimated GFR 19 POC Glucose 143 H Random Glucose 156 H Lactic Acid Calcium 9.1 D Phosphorus 4.2 Magnesium 2.3 Total Bilirubin Direct Bilirubin AST ALT Alkaline Phosphatase Ammonia Troponin I High Sens Total Protein Albumin Procalcitonin TSH Free T4 Urine Color Urine Appearance Urine pH Ur Specific [place] Urine Protein Urine Glucose (UA) Urine Ketones Urine Blood Urine Nitrite Ur Leukocyte Esterase Urine RBC Urine WBC Ur Squamous Epith Cells Ur Transition Epith Cell Urine Bacteria Hyaline Casts Urine Yeast Influenza Type A (PCR) Influenza Type B (PCR) RSV RNA Qual (PCR) SARS-CoV-2 RNA (RT-PCR) 06/17/25 06/17/25 06/17/25 19:38 21:46 23:44 WBC RBC Hgb Hct MCV MCH MCHC RDW Plt Count MPV Immature Gran % (Auto) Neut % (Auto) Lymph % (Auto) [place] % (Auto) Eos % (Auto) Baso % (Auto) Lymph # (Auto) [place] # (Auto) Eos # (Auto) Baso # (Auto) Abs Immat Gran (auto) Absolute Neuts (auto) Absolute Nucleated RBC Nucleated RBC % (auto) PT INR O2 Saturation ABG pH at Pt Temp ABG pCO2 at Pt Temp ABG pO2 at Pt Temp ABG HCO3 ABG Base Excess (Actual) VBG pH 7.21 L 7.41 VBG pCO2 88 55 VBG pO2 56 84 VBG HCO3 36 H 35 H VBG O2 Saturation 78.0 99.0 VBG Base Excess 5.8 9.1 Sodium Potassium Chloride Carbon Dioxide Anion Gap BUN Creatinine Estim Creat Clear Calc Estimated GFR POC Glucose 233 H Random Glucose Lactic Acid Calcium Phosphorus Magnesium Total Bilirubin Direct Bilirubin AST ALT Alkaline Phosphatase Ammonia Troponin I High Sens Total Protein Albumin Procalcitonin TSH Free T4 Urine Color Urine Appearance Urine pH Ur Specific [place] Urine Protein Urine Glucose (UA) Urine Ketones Urine Blood Urine Nitrite Ur Leukocyte Esterase Urine RBC Urine WBC Ur Squamous Epith Cells Ur Transition Epith Cell Urine Bacteria Hyaline Casts Urine Yeast Influenza Type A (PCR) Influenza Type B (PCR) RSV RNA Qual (PCR) SARS-CoV-2 RNA (RT-PCR) 06/18/25 06/18/25 05:01 05:09 WBC 16.8 H RBC 3.72 L Hgb 10.1 L Hct 32.9 L D MCV 88.4 MCH 27.2 MCHC 30.7 L RDW 16.4 H Plt Count 122 L MPV 12.6 H Immature Gran % (Auto) 0.3 Neut % (Auto) 75.7 H Lymph % (Auto) 17.1 L [place] % (Auto) 6.3 Eos % (Auto) 0.3 Baso % (Auto) 0.3 Lymph # (Auto) 2.9 [place] # (Auto) 1.1 Eos # (Auto) 0.1 Baso # (Auto) 0.1 Abs Immat Gran (auto) 0.05 H Absolute Neuts (auto) 12.7 H Absolute Nucleated RBC 0.000 Nucleated RBC % (auto) 0.0 PT INR O2 Saturation ABG pH at Pt Temp ABG pCO2 at Pt Temp ABG pO2 at Pt Temp ABG HCO3 ABG Base Excess (Actual) VBG pH 7.70 H* VBG pCO2 27 VBG pO2 52 VBG HCO3 33 H VBG O2 Saturation 85.0 VBG Base Excess 13.8 Sodium 153 H Potassium 3.3 D Chloride 115 H Carbon Dioxide 28 Anion Gap 13 BUN 53 H Creatinine 1.87 H Estim Creat Clear Calc 20.1 Estimated GFR 26 POC Glucose Random Glucose 241 H Lactic Acid Calcium 8.6 Phosphorus 1.5 L Magnesium 1.9 Total Bilirubin 0.3 Direct Bilirubin AST 20 ALT < 6 Alkaline Phosphatase 43 Ammonia Troponin I High Sens Total Protein 6.2 L Albumin 3.0 L Procalcitonin TSH Free T4 Urine Color Urine Appearance Urine pH Ur Specific [place] Urine Protein Urine Glucose (UA) Urine Ketones Urine Blood Urine Nitrite Ur Leukocyte Esterase Urine RBC Urine WBC Ur Squamous Epith Cells Ur Transition Epith Cell Urine Bacteria Hyaline Casts Urine Yeast Influenza Type A (PCR) Influenza Type B (PCR) RSV RNA Qual (PCR) SARS-CoV-2 RNA (RT-PCR) Progress Note: A&P Assessment and plan (1) Non-insulin dependent type 2 diabetes mellitus: Status: Acute (2) Acute renal failure: Status: Acute (3) Acute hypernatremia: Status: Acute (4) Pulmonary aspiration: Status: Resolved (5) Acute on chronic respiratory failure with hypoxia and hypercapnia: Status: Acute Plan Assessment: 79-year-old lady with underlying CVA with left-sided hemiparesis, COPD on 2 L of O2, minimally verbal admitted with septic shock with likely source Plan: Neuro: No acute issues. Underlying history of CVA with residual left-sided paresis and resulting decreased verbal responsiveness. Further complicated by septic encephalopathy. Cardiac: Likely septic shock, continue to titrate off pressor support as tolerated. Underlying history of diastolic cardiomyopathy and aortic stenosis. Pulmonary: Acute hypoxic and hypercapnic respiratory failure secondary to pulmonary aspiration on the background of encephalopathy, continue to titrate off ventilatory support as tolerated. Renal: Acute renal failure, non oliguric. CT with no evidence of obstruction. Urology service care appreciated. Continue to monitor renal indices and urine output. Endo: No acute issues. GI: No acute issues. ID: Septic shock with likely source. Continue empiric antibiotics. Heme/Onc: No acute issues. Psych: No acute issues. Miscellaneous: No acute issues. Prophylaxis: Heparin, ppi Diet: Tube feeds Critical care time spent: 60 minutes Quality Stroke Does the patient have a stroke diagnosis?: No VTE Prior VTE?: No VTE Risk Level:: Medical - moderate - high VTE Device Contraindication: Treatment Not Indicated VTE Drug Contraindication: N/A - Med Ordered
--- NOTE | 2025-06-18 10:18 | MHC.CLN ---
PT IS INTUBATED AND SEDATED DISCUSSED AT ROUNDS -PLAN TO START TF CURRENTLY NPO RECOMMEND TF VITAL AF 1.2 AT MAX GOAL RATE 45ML/HR WITH 120ML FREE WATER FLUSHES Q 6 HRS TO PROVIDE 1296KCALS (1703KCALS WITH SEDATION; 30.5KCALS/KG), 81G PROTEIN (1.5G/KG), 1356ML TOTAL FREE WATER FROM FORMULA AND FLUSHES (24ML/KG) MONITOR TOLERANCE AND LYTES SEE FULL ASSESSMENT
[2025-06-18 11:20] LABS: Glucose, Whole Blood 203 mg/dL (60-115)
--- NOTE | 2025-06-18 11:21 | PC.NURSE ---
Assumed care of pt at 11:00 am. New Tube Feed orders placed, Vital 1.2 at 20 cc/hr -- up at 11:05 am. Beginning to titrate Levo down as SBP and MAP within parameters, see flowsheet.
--- NOTE | 2025-06-18 11:45 | PC.NURSE ---
Son Anatoliy at bedside. Concerned about mother. Met with Dr. Lazaro for brief explanation of why patient here and plan of care. Met with Case Management, Oralia, to speak about concerns regarding UI APPLICATION DEVELOPER and care. UI APPLICATION DEVELOPER Mariely is HCP. Oralia Hernandez know he would have to contact [facility] for additional information. POC = 203, 4 units insulin per sliding scale.
--- NOTE | 2025-06-18 12:19 | PC.NURSE ---
Repositioned pt at 12 noon. HR up and BP dropped. Titrated Levo up, recovered within approx 15 min. Son remains at bedside.
[2025-06-18] MEDS: cefEPime HCl/D5W 2 GM/50 ML PIGGYBACK IV (12:46)
--- NOTE | 2025-06-18 14:50 | HO.WOUND ---
Wound Consult: Initial 79 yr [place] [facility] See progress notes and H&P for detailed history. Wound consult placed for sacrum. Patient agreeable to assessment and photo documentation. Seen in the ICU with direct care nurse at bedside. Coccyx/sacrum seen on previous admissions with pressure injury. Sacrum/coccyx- 06/17/25 Sacrum/coccyx 06/18/25 Etiology: Sacrum/coccyx deep tissue pressure injury present on admission - declaring Measurements: 7cm x 6cm x 0.1cm Wound Bed: areas of intact dark purple discoloration with areas of superficial skin erosion revealing deep red base Drainage / Odor: scant serous no odor Edges: ? open [place] wound: ? No Induration, Fluctuance or Warmth noted - hyperpigmetation surrounding and pale pink scar tissue noted to upper buttocks Pain: none Goals of Treatment: ? triad to provide an occlusive dressing for autolytic debridment, to allow moist wound healing with absorption of mild exudate, to minimize contamination of urine/stool or bacteria, and to soothe and protect triston wound skin, cover with foam for offloading and pressure redistribution. left heel- healed skin injury blanchable - scar tissue with dry peeling skin - protective foams in place right heel- intact blanching- heel foams in place bilateral medial metatarsal heads with areas of hyper and hypopigmented skin - likely healed skin injuries Recommendations: 1. Turn and Reposition every 2 hours and as needed for patient comfort. Use pillows or wedges to support off loading positions. 2. Off Load all bony prominences with use of pillows and heel boots if needed. Apply Preventative foams where needed. 3. Monitor for incontinence and moisture control, use barrier creams when needed for prevention and treatment. 4. Provide adequate and supplemental nutrition. 5. Order or Continue low air loss mattress. 6. When applicable maintain blood glucose levels per Providers order. Coccyx/Sacrum: Off Load Pressure with Q2 hr turns and use of pillows - Cleanse with PH balance spray or wipes, pat dry. ?Apply thin layer of Triad to wound bed. Do not remove all of paste between applications as this may cause further skin damage.? Cover with foam dressing to aid in off loading and protection from friction. Change every other day and PRN. Bilateral heels: Elevate heels off of bed surface with pillows or boots. Float heels off of pillows. Apply skin prep allow to dry. Apply heel foam dressings, peel back and assess Q shift and change every 5-7 days and PRN. Re-consult wound care Nurse for wound deterioration or wound changes.
[2025-06-18 15:20] LABS: ABG Refer to POC result
[2025-06-18 17:33] LABS: Glucose, Whole Blood 175 mg/dL (60-115)
--- NOTE | 2025-06-18 18:32 | PC.NURSE ---
Assumed care of pt at 1300. Pt on vent with no resp distress. O2 sats 92-95% on 30%fiO2. Pt sedated on fentanyl and propofol with good effect. Bp stable of Levophed. Monitor shows NSR, 60's-70's, rare PVC noted. Pt started on tube feeds via OGT today at 1100 and is tolerating well; rate titrated as ordered. No BM. U/O good via gillespie cath, 40-50ml/hr. Pt has a chronic decubiti on sacrum. Seen by wound care nurse today. Foam dsg in place. Pt T&R q2hr. Foam wedges/ pillows used. Heels elevated.
[2025-06-18 19:35] LABS: Albumin Level 3.8 g/dL (3.5-5.0); Anion Gap 10 (12-20); Blood Urea Nitrogen 44 mg/dL (9-16); Calcium 9.0 mg/dL (8.4-10.2); Carbon Dioxide 31 mmol/L (22-29); Chloride 116 mmol/L (96-108); Creatinine Clr Calc Pharmacy 23.1; Estimated Glomerular Filt Rate 30; Magnesium 2.0 mg/dL (1.6-2.6); Potassium 3.2 mmol/L (3.3-5.1); Sodium 154 mmol/L (135-145)
[2025-06-18] MEDS: Potassium Chloride/H20 40 MEQ/100 ML PIGGYBACK 50 MEQ IV (20:06)
[2025-06-18 23:52] LABS: Glucose, Whole Blood 200 mg/dL (60-115)
[2025-06-19] VITALS (49 sets, daily range): BP systolic 87–127; BP diastolic 28–61; PULSE 58–124; RESP 12–20; TEMP 34.1–38.5; O2SAT 88–95; BMI 21.8
[2025-06-19] MEDS: Albumin Human 25 % 100 ML IV (01:27)
[2025-06-19 05:03] LABS: VBG HCO3 31 mmol/L (22-26); VBG O2 % Saturation 77.0 %
[2025-06-19 05:32] LABS: MANUAL DIFF FLAG NO
[2025-06-19 05:39] LABS: Hematocrit 29.0 % (37.0-47.0); Hemoglobin 8.8 g/dl (12.0-16.0); Imm Gran Abs Auto 0.02 X10*3/uL (0.00-0.03); Imm Gran Pct Auto 0.2 % (0.0-0.4); Lymphocytes Absolute Auto 1.4 X10*3/uL (1.2-4.9); Mean Corpuscular HGB Conc 30.3 g/dl (31.0-35.0); Mean Corpuscular Hemoglobin 26.9 pg (27.0-33.0); Mean Corpuscular Volume 88.7 fL (80.0-98.0); NRBC Abs Auto 0.000 X10*3/uL (0.0-0.012); NRBC Pct Auto 0.0 /100WBC (0.0-0.2); Red Blood Count 3.27 X10*6/uL (4.20-5.50); White Blood Count 8.9 X10*3/uL (4.8-10.8)
[2025-06-19 05:56] LABS: Platelet Count 91 X10*3/uL (160-400)
[2025-06-19 06:02] LABS: Albumin Level 4.1 g/dL (3.5-5.0); Anion Gap 14 (12-20); Blood Urea Nitrogen 39 mg/dL (9-16); Calcium 8.7 mg/dL (8.4-10.2); Carbon Dioxide 27 mmol/L (22-29); Chloride 114 mmol/L (96-108); Creatinine Clr Calc Pharmacy 24.7; Estimated Glomerular Filt Rate 33; Magnesium 2.1 mg/dL (1.6-2.6); Potassium 4.0 mmol/L (3.3-5.1); Sodium 151 mmol/L (135-145)
[2025-06-19 06:49] LABS: Venous Blood Gas Refer to POC result
[2025-06-19] MEDS: 0.9 % Sodium Chloride Flush 3 ML SYRINGE IVFLUSH ×3 (07:34→23:37)
[2025-06-19] MEDS: Chlorhexidine Gluc Oral Rinse 15 ML MOUTHWASH BUCCAL ×3 (07:34→19:40)
[2025-06-19] MEDS: Albuterol/Iprat 2.5/0.5MG 3 ML AMPUL.NEB INHALE ×4 (07:41→19:59)
--- NOTE | 2025-06-19 10:15 | P.PNCC_ITS ---
Subjective Subjective Date of Service: 06/19/25 Interval History: 79-year-old lady with underlying history of CVA with left-sided hemiparesis, COPD on 2 L at baseline, diabetes mellitus, seizure disorder, chronic sacral decubitus wound, minimally verbal and nonambulatory presented to ER on 06/17/2025 for evaluation of lethargy and hypotension. On ER evaluation patient with IV fluid resuscitation requiring pressor support. She was started empiric antibiotics. Initial concern for obstructive renal calculus was not confirmed on closer review of her CT abdomen. Patient was admitted the intensive care unit for pressor support. Overnight 06/17/2025 patient with pulmonary aspiration requiring intubation ventilatory support. No events overnight. Critical Care Time (minutes): 60 Physical Exam 2 Vital Signs: Vital Signs: Last Vital Signs Temp 99.3 F 06/19/25 08:57 Pulse 109 H 06/19/25 10:00 Resp 17 06/19/25 10:00 BP 112/47 L 06/19/25 10:00 Pulse Ox 92 06/19/25 10:00 O2 Del Method Mechanical Ventil ation 06/19/25 10:00 O2 Flow Rate 2 06/17/25 20:00 FiO2 35 06/19/25 10:06 Oxygen Flow Rate 2 06/17/25 12:56 BMI result Body Mass Index 21.8 Const: General: no acute distress and other (Sedated on ventilatory support) Eyes: Sclerae: sclerae normal EOM: EOMs intact bilaterally Neck: Neck: Yes no lymphadenopathy, Yes trachea midline and Yes supple Resp: Auscultation: clear to auscultation bilaterally Cardio: Rate: tachycardic Rhythm: regular rhythm Heart sounds: no gallops, no murmurs and no rubs GI: Palpation (GI): Soft to palpation and Other GI palpation findings present ( Nontender) Auscultation: normal bowel sounds Extrem: General: Yes no pedal edema, No clubbing and No cyanosis Objective Data Labs 06/19/25 04:55 06/19/25 04:55 Labs: Laboratory Results - last 24 hr 06/18/25 06/18/25 06/18/25 11:17 17:28 19:06 WBC RBC Hgb Hct MCV MCH MCHC RDW Plt Count MPV Immature Gran % (Auto) Neut % (Auto) Lymph % (Auto) [place] % (Auto) Eos % (Auto) Baso % (Auto) Lymph # (Auto) [place] # (Auto) Eos # (Auto) Baso # (Auto) Abs Immat Gran (auto) Absolute Neuts (auto) Absolute Nucleated RBC Nucleated RBC % (auto) VBG pH VBG pCO2 VBG pO2 VBG HCO3 VBG O2 Saturation VBG Base Excess Sodium 154 H Potassium 3.2 L Chloride 116 H Carbon Dioxide 31 H Anion Gap 10 L BUN 44 H Creatinine 1.63 H Estim Creat Clear Calc 23.1 Estimated GFR 30 POC Glucose 203 H 175 H Random Glucose 187 H Calcium 9.0 Phosphorus 3.4 Magnesium 2.0 Albumin 3.8 06/18/25 06/19/25 06/19/25 23:47 04:55 04:58 WBC 8.9 RBC 3.27 L Hgb 8.8 L Hct 29.0 L MCV 88.7 MCH 26.9 L MCHC 30.3 L RDW 17.2 H Plt Count 91 L D MPV 12.9 H Immature Gran % (Auto) 0.2 Neut % (Auto) 74.0 H Lymph % (Auto) 15.8 L [place] % (Auto) 7.2 Eos % (Auto) 2.6 Baso % (Auto) 0.2 Lymph # (Auto) 1.4 [place] # (Auto) 0.6 Eos # (Auto) 0.2 Baso # (Auto) 0.0 Abs Immat Gran (auto) 0.02 Absolute Neuts (auto) 6.5 Absolute Nucleated RBC 0.000 Nucleated RBC % (auto) 0.0 VBG pH 7.55 H VBG pCO2 35 VBG pO2 48 VBG HCO3 31 H VBG O2 Saturation 77.0 VBG Base Excess 8.5 Sodium 151 H Potassium 4.0 D Chloride 114 H Carbon Dioxide 27 Anion Gap 14 BUN 39 H Creatinine 1.53 H Estim Creat Clear Calc 24.7 Estimated GFR 33 POC Glucose 200 H Random Glucose 258 H Calcium 8.7 Phosphorus 2.7 Magnesium 2.1 Albumin 4.1 Microbiology Microbiology Results: Microbiology 06/17/25 13:14 Blood - Venous Blood Culture - Preliminary No growth after 24 hours. 06/17/25 13:14 Blood - Venous Blood Culture - Preliminary No growth after 24 hours. 06/17/25 Unknown Urine Catheterized - Straight Catheter Urine Culture - Preliminary Culture in progress. Progress Note: A&P Assessment and plan (1) Non-insulin dependent type 2 diabetes mellitus: Status: Acute (2) Acute renal failure: Status: Acute (3) Acute encephalopathy: Status: Acute (4) Acute on chronic respiratory failure with hypoxia and hypercapnia: Status: Acute (5) Pulmonary aspiration: Status: Resolved Plan Assessment: 79-year-old lady with underlying CVA with left-sided hemiparesis, COPD on 2 L of O2, minimally verbal admitted with septic shock with likely source Plan: Neuro: No acute issues. Underlying history of CVA with residual left-sided paresis and resulting decreased verbal responsiveness. Further complicated by septic encephalopathy. Cardiac: Likely septic shock, continue to titrate off pressor support as tolerated. Underlying history of diastolic cardiomyopathy and aortic stenosis. Pulmonary: Acute hypoxic and hypercapnic respiratory failure secondary to pulmonary aspiration on the background of encephalopathy, continue to titrate off ventilatory support as tolerated. Renal: Acute renal failure, non oliguric. CT with no evidence of obstruction. Urology service care appreciated. Continue to monitor renal indices and urine output. Endo: No acute issues. GI: No acute issues. ID: Septic shock with likely source. Continue empiric antibiotics. Heme/Onc: No acute issues. Psych: No acute issues. Miscellaneous: No acute issues. Prophylaxis: Heparin, ppi Diet: Tube feeds Critical care time spent: 60 minutes Quality Stroke Does the patient have a stroke diagnosis?: No VTE Prior VTE?: No VTE Risk Level:: Medical - moderate - high VTE Device Contraindication: Treatment Not Indicated VTE Drug Contraindication: N/A - Med Ordered
[2025-06-19 11:55] LABS: Glucose, Whole Blood 227 mg/dL (60-115)
[2025-06-19] MEDS: cefEPime HCl/D5W 2 GM/50 ML PIGGYBACK IV (11:56)
[2025-06-19 17:35] LABS: Glucose, Whole Blood 221 mg/dL (60-115)
--- NOTE | 2025-06-19 18:13 | PC.NURSE ---
Assumed care of patient 0700. Sedation vacation initiated per MD at 09:30AM; Propofol and fentanyl gtts paused. PSV trial started 10:00AM. Patient tolerating well, PSV 5, PEEP 5.0, 35%. Patient started making eye contact approx 12:00 PM. Inconsistently following commands to squeeze right hand, unable to move feet to command though moves spontaneously. Unable to give thumbs up. Patient unable to lift head from pillow to command. Heart rate increased at times up to 140 bpm. Per MD, plan to continue PSV and sedation vacation as tolerated but no extubation today. Bed bath provided to patient 13:30. HCP updated via phone and patient's son visited at bedside.
[2025-06-19] MEDS: Acetaminophen Oral Liquid 650 MG/20.3 ML SOLUTION PO (21:31)
[2025-06-19 23:24] LABS: Glucose, Whole Blood 203 mg/dL (60-115)
[2025-06-20] VITALS (38 sets, daily range): BP systolic 97–157; BP diastolic 41–72; PULSE 78–142; RESP 15–35; TEMP 35.1–38.3; O2SAT 88–95; BMI 25.1
[2025-06-20 05:06] LABS: VBG HCO3 30 mmol/L (22-26); VBG O2 % Saturation 81.0 %
[2025-06-20 05:17] LABS: MANUAL DIFF FLAG NO
[2025-06-20 05:18] LABS: Venous Blood Gas Refer to POC result
[2025-06-20 05:24] LABS: Hematocrit 28.4 % (37.0-47.0); Hemoglobin 8.9 g/dl (12.0-16.0); Imm Gran Abs Auto 0.05 X10*3/uL (0.00-0.03); Imm Gran Pct Auto 0.5 % (0.0-0.4); Lymphocytes Absolute Auto 1.0 X10*3/uL (1.2-4.9); Mean Corpuscular HGB Conc 31.3 g/dl (31.0-35.0); Mean Corpuscular Hemoglobin 27.5 pg (27.0-33.0); Mean Corpuscular Volume 87.7 fL (80.0-98.0); NRBC Abs Auto 0.000 X10*3/uL (0.0-0.012); NRBC Pct Auto 0.0 /100WBC (0.0-0.2); Red Blood Count 3.24 X10*6/uL (4.20-5.50); White Blood Count 10.0 X10*3/uL (4.8-10.8)
[2025-06-20 05:25] LABS: Platelet Count 95 X10*3/uL (160-400)
[2025-06-20 05:33] LABS: Albumin Level 3.7 g/dL (3.5-5.0); Anion Gap 12 (12-20); Blood Urea Nitrogen 34 mg/dL (9-16); Calcium 8.5 mg/dL (8.4-10.2); Carbon Dioxide 28 mmol/L (22-29); Chloride 115 mmol/L (96-108); Creatinine Clr Calc Pharmacy 23.0; Estimated Glomerular Filt Rate 30; Magnesium 2.1 mg/dL (1.6-2.6); Potassium 3.8 mmol/L (3.3-5.1); Sodium 151 mmol/L (135-145)
--- NOTE | 2025-06-20 06:18 | PC.NURSE ---
Assumed care 1899 - pt remains?intubated and sedated, on Propofol gtt. Pt opens eyes to name, tracks, and follows simple commands at times. SR/ST on tele, HR 70-110s. MAP > 65 on Levophed - see MAR. Around 1999 placed on ACVC settings by RT - see vent assessment. Tube feeds infusing per order - pt tolerating well. No BM this shift, Lactulose administered per SEP. Core temp 101.3 - Tylenol administered per SEP with good effect. Curry?in place draining pale yellow urine with sediment. Triad?applied to sacral wound. Hygiene?provided, repositioned Q2H.?
[2025-06-20] MEDS: 0.9 % Sodium Chloride Flush 3 ML SYRINGE IVFLUSH ×3 (07:32→22:50)
[2025-06-20] MEDS: Potassium Phosphate/NS 15 MMOL/250 ML PLAST..BAG 62.5 MMOL IV (07:33)
[2025-06-20] MEDS: Chlorhexidine Gluc Oral Rinse 15 ML MOUTHWASH BUCCAL (07:33)
[2025-06-20] MEDS: Albuterol/Iprat 2.5/0.5MG 3 ML AMPUL.NEB INHALE ×4 (07:40→20:15)
--- NOTE | 2025-06-20 08:57 | P.PNCC_ITS ---
Subjective Subjective Date of Service: 06/20/25 Interval History: 79-year-old lady with underlying history of CVA with left-sided hemiparesis, COPD on 2 L at baseline, diabetes mellitus, seizure disorder, chronic sacral decubitus wound, minimally verbal and nonambulatory presented to ER on 06/17/2025 for evaluation of lethargy and hypotension. On ER evaluation patient with IV fluid resuscitation requiring pressor support. She was started empiric antibiotics. Initial concern for obstructive renal calculus was not confirmed on closer review of her CT abdomen. Patient was admitted the intensive care unit for pressor support. Overnight 06/17/2025 patient with pulmonary aspiration requiring intubation ventilatory support. No events overnight. Now with improving tolerance of pressor support trials. Critical Care Time (minutes): 60 Physical Exam 2 Vital Signs: Vital Signs: Last Vital Signs Temp 100.4 F 06/20/25 08:00 Pulse 99 06/20/25 08:00 Resp 18 06/20/25 08:00 BP 127/59 L 06/20/25 08:00 Pulse Ox 90 L 06/20/25 08:00 O2 Del Method Mechanical Ventil ation 06/20/25 08:00 O2 Flow Rate 2 06/17/25 20:00 FiO2 35 06/20/25 08:00 Oxygen Flow Rate 2 06/17/25 12:56 BMI result Body Mass Index 25.1 Const: General: no acute distress and other (Sedated on ventilatory support) Eyes: Sclerae: sclerae normal EOM: EOMs intact bilaterally Neck: Neck: Yes no lymphadenopathy, Yes trachea midline and Yes supple Resp: Auscultation: clear to auscultation bilaterally Cardio: Rate: regular rate Rhythm: regular rhythm Heart sounds: no gallops, no murmurs and no rubs GI: Palpation (GI): Soft to palpation and Other GI palpation findings present ( Nontender) Auscultation: normal bowel sounds Extrem: General: Yes no pedal edema, No clubbing and No cyanosis Objective Data Labs 06/20/25 04:47 06/20/25 04:47 Labs: Laboratory Results - last 24 hr 06/19/25 06/19/25 06/19/25 11:51 17:31 23:20 WBC RBC Hgb Hct MCV MCH MCHC RDW Plt Count MPV Immature Gran % (Auto) Neut % (Auto) Lymph % (Auto) [place] % (Auto) Eos % (Auto) Baso % (Auto) Lymph # (Auto) [place] # (Auto) Eos # (Auto) Baso # (Auto) Abs Immat Gran (auto) Absolute Neuts (auto) Absolute Nucleated RBC Nucleated RBC % (auto) VBG pH VBG pCO2 VBG pO2 VBG HCO3 VBG O2 Saturation VBG Base Excess Sodium Potassium Chloride Carbon Dioxide Anion Gap BUN Creatinine Estim Creat Clear Calc Estimated GFR POC Glucose 227 H 221 H 203 H Random Glucose Calcium Phosphorus Magnesium Albumin 06/20/25 06/20/25 04:47 05:01 WBC 10.0 RBC 3.24 L Hgb 8.9 L Hct 28.4 L MCV 87.7 MCH 27.5 MCHC 31.3 RDW 17.3 H Plt Count 95 L MPV 12.2 Immature Gran % (Auto) 0.5 H Neut % (Auto) 77.6 H Lymph % (Auto) 10.1 L [place] % (Auto) 8.1 Eos % (Auto) 3.5 Baso % (Auto) 0.2 Lymph # (Auto) 1.0 L [place] # (Auto) 0.8 Eos # (Auto) 0.4 Baso # (Auto) 0.0 Abs Immat Gran (auto) 0.05 H Absolute Neuts (auto) 7.8 Absolute Nucleated RBC 0.000 Nucleated RBC % (auto) 0.0 VBG pH 7.43 VBG pCO2 45 VBG pO2 53 VBG HCO3 30 H VBG O2 Saturation 81.0 VBG Base Excess 5.7 Sodium 151 H Potassium 3.8 Chloride 115 H Carbon Dioxide 28 Anion Gap 12 BUN 34 H Creatinine 1.64 H Estim Creat Clear Calc 23.0 Estimated GFR 30 POC Glucose Random Glucose 225 H Calcium 8.5 Phosphorus 1.8 L Magnesium 2.1 Albumin 3.7 Microbiology Microbiology Results: Microbiology 06/17/25 13:14 Blood - Venous Blood Culture - Preliminary No growth after 48 hours. 06/17/25 13:14 Blood - Venous Blood Culture - Preliminary No growth after 48 hours. 06/17/25 Unknown Urine Catheterized - Straight Catheter Urine Culture - Final Progress Note: A&P Assessment and plan (1) Non-insulin dependent type 2 diabetes mellitus: Status: Acute (2) Acute renal failure: Status: Acute (3) Cystitis: Status: Acute (4) Acute encephalopathy: Status: Acute (5) Acute on chronic respiratory failure with hypoxia and hypercapnia: Status: Acute Plan Assessment: 79-year-old lady with underlying CVA with left-sided hemiparesis, COPD on 2 L of O2, minimally verbal admitted with septic shock with likely source Plan: Neuro: No acute issues. Underlying history of CVA with residual left-sided paresis and resulting decreased verbal responsiveness. Further complicated by septic encephalopathy. Cardiac: Likely septic shock, continue to titrate off pressor support as tolerated. Underlying history of diastolic cardiomyopathy and aortic stenosis. Pulmonary: Acute hypoxic and hypercapnic respiratory failure secondary to pulmonary aspiration on the background of encephalopathy, continue to titrate off ventilatory support as tolerated. Renal: Acute renal failure, non oliguric. CT with no evidence of obstruction. Urology service care appreciated. Continue to monitor renal indices and urine output. Endo: No acute issues. GI: No acute issues. ID: Septic shock with likely source. Continue empiric antibiotics. Heme/Onc: No acute issues. Psych: No acute issues. Miscellaneous: No acute issues. Prophylaxis: Heparin, ppi Diet: Tube feeds Critical care time spent: 60 minutes Quality Stroke Does the patient have a stroke diagnosis?: No VTE Prior VTE?: No VTE Risk Level:: Medical - moderate - high VTE Device Contraindication: Treatment Not Indicated VTE Drug Contraindication: N/A - Med Ordered
--- NOTE | 2025-06-20 10:12 | MHC.CLN ---
F/U PT IS INTUBATED AND SEDATED TOLERATING CURRENT TUBE FEEDING. RECOMMEND CONTINUE TUBE FEEDING: VITAL AF 1.2 AT MAX GOAL RATE 45ML/HR WITH 120ML FREE WATER FLUSHES Q 6 HRS TO PROVIDE 1296KCALS (1601KCALS WITH SEDATION; 30.6KCALS/KG) IBW, 81G PROTEIN (1.5G/KG IBW), 1356ML TOTAL FREE WATER FROM FORMULA AND FLUSHES (25.9ML/KG IBW) MONITOR TOLERANCE AND LYTES
--- NOTE | 2025-06-20 10:16 | MHC.CM.PN ---
Pt has been extubated and is presently on n/c O2. Pt from home w/13/02 [employer] care. Goal is to return to home via BLS transport. CM to follow.
--- NOTE | 2025-06-20 10:23 | MHC.CLN ---
F/U PATIENT EXTUBATED THIS AM. CURRENTLY NPO AND TF DISCONTINUED. SKIN WITH DTI TO COCCYX. FOLLOW FOR DIET ADVANCEMENT, PO INTAKE AND WOUND HEALING.
--- NOTE | 2025-06-20 10:30 | MHC.CLN ---
F/U EXTUBATED 06/20 CURRENTLY NPO SKIN WITH DTI TO COCCYX FOLLOW FOR DIET ADVANCEMENT, PO INTAKE AND SKIN INTEGRITY
[2025-06-20 11:21] LABS: Glucose, Whole Blood 182 mg/dL (60-115)
--- NOTE | 2025-06-20 11:31 | P.CDIM_ITS ---
PROVIDER RESPONSE TEXT: To clarify, the appropriate diagnosis supported by the clinical indicators: Hypernatremia QUERY TEXT: PHYSICIAN'S DOCUMENTATION REQUEST Date of Query: 06/20/2025 11:21 AM EST Patient Name: Rosi Hernández Admit Date: 06/17/2025 Dear Romaine Lazaro MD, A review of the medical record indicates additional documentation may be needed. Please review below and update the documentation accordingly. Clinical Indicators: LABS: Sodium 151 H Based on the above labs, is there a diagnosis that correlates with these findings? Hypernatremia Labs indicate a diagnosis of (please specify) Other (explain) Clinically unable to determine (explain) Thank you, Juliana Cartwright, CCS, CDIS Use of terms such as suspected, likely, concern for, or probable (associated with a specific diagnosis that is being evaluated, monitored, or treated as if it exists) are acceptable and can be coded in the inpatient setting, when documented at the time of discharge. Please use your independent medical judgment in providing your response. THIS QUERY IS PART OF THE PERMANENT MEDICAL RECORD
[2025-06-20 12:19] LABS: Venous Blood Gas Refer to POC result
[2025-06-20 12:21] LABS: VBG HCO3 29 mmol/L (22-26); VBG O2 % Saturation 97.0 %
[2025-06-20] MEDS: Furosemide 40 MG/4 ML VIAL IVPUSH (12:51)
[2025-06-20] MEDS: cefEPime HCl/D5W 2 GM/50 ML PIGGYBACK IV (12:52)
[2025-06-20 17:41] LABS: Glucose, Whole Blood 143 mg/dL (60-115)
--- NOTE | 2025-06-20 18:03 | PC.NURSE ---
Assumed care at 0700- pt. intubated and sedated per SEP. Sedation vacation initiated at 0845. At approx. 0920, pt. changed to PSV 5/5 35%, tolerating well. Pt. extubated per MD order at 0950, placed on 3L NC, 02 sat >92%. Pt. drowsy but awake with eyes open spontaneously or to voice. Minimal speech at baseline, but nods and follows commands. SR/ST on tele, HR 80s-120s. Remains on norepinephrine gtt, titrated per SEP. Pt. incontinent of stool x1 this shift. Curry remains in place draining cyu.Pt. with low grade temps through shift, Tmax 100.8- MD aware. Q2 oral care and repositioning performed. Plan of care ongoing.
[2025-06-20 23:23] LABS: Glucose, Whole Blood 108 mg/dL (60-115)
[2025-06-21] VITALS (23 sets, daily range): BP systolic 100–118; BP diastolic 38–58; PULSE 66–108; RESP 17–118; TEMP 36.3–37.6; O2SAT 91–98; BMI 24.2
[2025-06-21 05:05] LABS: VBG HCO3 34 mmol/L (22-26); VBG O2 % Saturation 85.0 %
[2025-06-21 05:11] LABS: MANUAL DIFF FLAG NO
[2025-06-21 05:20] LABS: Hematocrit 27.2 % (37.0-47.0); Hemoglobin 8.6 g/dl (12.0-16.0); Imm Gran Abs Auto 0.03 X10*3/uL (0.00-0.03); Imm Gran Pct Auto 0.3 % (0.0-0.4); Lymphocytes Absolute Auto 1.1 X10*3/uL (1.2-4.9); Mean Corpuscular HGB Conc 31.6 g/dl (31.0-35.0); Mean Corpuscular Hemoglobin 27.7 pg (27.0-33.0); Mean Corpuscular Volume 87.5 fL (80.0-98.0); NRBC Abs Auto 0.000 X10*3/uL (0.0-0.012); NRBC Pct Auto 0.0 /100WBC (0.0-0.2); Red Blood Count 3.11 X10*6/uL (4.20-5.50); White Blood Count 8.8 X10*3/uL (4.8-10.8)
[2025-06-21 05:23] LABS: Platelet Count 79 X10*3/uL (160-400)
[2025-06-21 05:30] LABS: Venous Blood Gas Refer to POC result
[2025-06-21 05:34] LABS: Albumin Level 3.6 g/dL (3.5-5.0); Anion Gap 15 (12-20); Blood Urea Nitrogen 29 mg/dL (9-16); Calcium 8.8 mg/dL (8.4-10.2); Carbon Dioxide 28 mmol/L (22-29); Chloride 115 mmol/L (96-108); Creatinine Clr Calc Pharmacy 26.0; Estimated Glomerular Filt Rate 32; Magnesium 2.0 mg/dL (1.6-2.6); Potassium 4.0 mmol/L (3.3-5.1); Sodium 154 mmol/L (135-145)
--- NOTE | 2025-06-21 07:22 | PC.NURSE ---
Upon initial assessment at 1999- pt A&Ox1, minimal speech, follows simple commands, left hemiparesis. Afebrile. NSR/ST on tele, 80-100s. Levophed titrated off, SBP >90, MAP >65. SpO2 >92% on 2L NC. NPO. Indwelling catheter in place, UOP as charted. Incontinent of stool x1. Impaired skin integrity- see wound/PI assessment. Repositioned in bed q2hrs with wedges/pillows; on IsoTour mattress. Bed locked in lowest position, alarm on. See EMR/flowsheet for further details.
[2025-06-21] MEDS: Albuterol/Iprat 2.5/0.5MG 3 ML AMPUL.NEB INHALE ×3 (07:40→20:06)
[2025-06-21] MEDS: 0.9 % Sodium Chloride Flush 3 ML SYRINGE IVFLUSH (08:06)
--- NOTE | 2025-06-21 09:55 | PM.CCPN ---
Subjective Subjective Date of Service: 06/21/25 Interval History: 79-year-old lady with underlying history of CVA with left-sided hemiparesis, COPD on 2 L at baseline, diabetes mellitus, seizure disorder, chronic sacral decubitus wound, minimally verbal and nonambulatory presented to ER on 06/17/2025 for evaluation of lethargy and hypotension. On ER evaluation patient with IV fluid resuscitation requiring pressor support. She was started empiric antibiotics. Initial concern for obstructive renal calculus was not confirmed on closer review of her CT abdomen. Patient was admitted the intensive care unit for pressor support. Overnight 06/17/2025 patient with pulmonary aspiration requiring intubation ventilatory support. Extubated uneventfully on 06/20/2025. No events overnight. Critical Care Time (minutes): 0 Physical Exam Vital Signs: Vital Signs: Last Vital Signs Temp 99.0 F 06/21/25 09:00 Pulse 99 06/21/25 09:00 Resp 21 H 06/21/25 09:00 BP 106/46 L 06/21/25 09:00 Pulse Ox 91 L 06/21/25 09:00 O2 Del Method Nasal Cannula 06/21/25 09:00 O2 Flow Rate 2 06/21/25 09:00 FiO2 35 06/20/25 09:59 Oxygen Flow Rate 2 06/17/25 12:56 BMI result Body Mass Index 24.2 Const: General: no acute distress and lethargic (Arousable) Orientation/consciousness: lethargic (Arousable) Eyes: Sclerae: sclerae normal EOM: EOMs intact bilaterally Neck: Neck: Yes no lymphadenopathy, Yes trachea midline and Yes supple Resp: Effort & Inspection: normal respiratory effort and no respiratory distress Auscultation: clear to auscultation bilaterally Cardio: Rate: regular rate Rhythm: regular rhythm Heart sounds: no gallops, no murmurs and no rubs GI: Palpation (GI): Soft to palpation and Other GI palpation findings present ( Nontender) Auscultation: normal bowel sounds Extrem: General: Yes no pedal edema, No clubbing and No cyanosis Objective Data Labs 06/21/25 05:02 06/21/25 05:02 Labs: Laboratory Results - last 24 hr 06/20/25 06/20/25 06/20/25 11:18 12:17 17:38 WBC RBC Hgb Hct MCV MCH MCHC RDW Plt Count MPV Immature Gran % (Auto) Neut % (Auto) Lymph % (Auto) [place] % (Auto) Eos % (Auto) Baso % (Auto) Lymph # (Auto) [place] # (Auto) Eos # (Auto) Baso # (Auto) Abs Immat Gran (auto) Absolute Neuts (auto) Absolute Nucleated RBC Nucleated RBC % (auto) VBG pH 7.40 VBG pCO2 46 VBG pO2 85 VBG HCO3 29 H VBG O2 Saturation 97.0 VBG Base Excess 4.2 Sodium Potassium Chloride Carbon Dioxide Anion Gap BUN Creatinine Estim Creat Clear Calc Estimated GFR POC Glucose 182 H 143 H Random Glucose Calcium Phosphorus Magnesium Albumin 06/20/25 06/21/25 06/21/25 23:17 05:01 05:02 WBC 8.8 RBC 3.11 L Hgb 8.6 L Hct 27.2 L MCV 87.5 MCH 27.7 MCHC 31.6 RDW 17.7 H Plt Count 79 L MPV 12.0 Immature Gran % (Auto) 0.3 Neut % (Auto) 74.0 H Lymph % (Auto) 12.6 L [place] % (Auto) 8.5 Eos % (Auto) 4.4 H Baso % (Auto) 0.2 Lymph # (Auto) 1.1 L [place] # (Auto) 0.8 Eos # (Auto) 0.4 Baso # (Auto) 0.0 Abs Immat Gran (auto) 0.03 Absolute Neuts (auto) 6.5 Absolute Nucleated RBC 0.000 Nucleated RBC % (auto) 0.0 VBG pH 7.49 H VBG pCO2 44 VBG pO2 55 VBG HCO3 34 H VBG O2 Saturation 85.0 VBG Base Excess 10.2 Sodium 154 H Potassium 4.0 Chloride 115 H Carbon Dioxide 28 Anion Gap 15 BUN 29 H Creatinine 1.58 H Estim Creat Clear Calc 26.0 Estimated GFR 32 POC Glucose 108 Random Glucose 111 Calcium 8.8 Phosphorus 2.8 Magnesium 2.0 Albumin 3.6 Microbiology Microbiology Results: Microbiology 06/17/25 13:14 Blood - Venous Blood Culture - Preliminary No growth after 48 hours. 06/17/25 13:14 Blood - Venous Blood Culture - Preliminary No growth after 48 hours. 06/17/25 Unknown Urine Catheterized - Straight Catheter Urine Culture - Final Progress Note: A&P Assessment and plan (1) Non-insulin dependent type 2 diabetes mellitus: Status: Acute (2) Cystitis: Status: Acute (3) Pulmonary aspiration: Status: Resolved (4) Congestive heart failure: Status: Acute Plan Assessment: 79-year-old lady with underlying CVA with left-sided hemiparesis, COPD on 2 L of O2, minimally verbal admitted with septic shock with likely source Plan: Neuro: No acute issues. Underlying history of CVA with residual left-sided paresis and resulting decreased verbal responsiveness. Further complicated by septic encephalopathy, improving. Cardiac: Likely septic shock, resolved, titrated off pressor support. Underlying history of diastolic cardiomyopathy and aortic stenosis. Pulmonary: Acute hypoxic and hypercapnic respiratory failure secondary to pulmonary aspiration on the background of encephalopathy, extubated on 06/20/2025. Renal: Acute renal failure, improving, non oliguric. CT with no evidence of obstruction. Urology service care appreciated. Continue to monitor renal indices and urine output. Endo: No acute issues. GI: No acute issues. ID: UTI/cystitis, continue empiric antibiotics. Heme/Onc: No acute issues. Psych: No acute issues. Miscellaneous: No acute issues. Prophylaxis: Heparin Diet: Pending swallow evaluation Quality Stroke Does the patient have a stroke diagnosis?: No VTE Prior VTE?: No VTE Risk Level:: Medical - moderate - high VTE Device Contraindication: Treatment Not Indicated VTE Drug Contraindication: N/A - Med Ordered
[2025-06-21 11:44] LABS: Glucose, Whole Blood 141 mg/dL (60-115)
--- NOTE | 2025-06-21 14:48 | PM.EVENT ---
Event Note Date of Service: 06/21/25 Event Note: Patient seen and examined, down treated by ICU team today afternoon Seems awake alert oriented x1 79 yo pmhx L hemiparesis from prior CVA, COPD on 2L home O2, HTN, HLD, HFpEF, aortic stenosis, seizures, and dementia -minimally verbal came to the hospital because possible septic shock secondary to source, patient also was toxic metabolic encephalopathy due to sepsis., in addition ICU course was complicated with possible aspiration requiring intubation, currently patient is extubated, additionally also has hypernatremia. family metioned ?episode of staring vs seizure -moniter neurochecks , add extra 500 mg iv keppra , already started iv keppra earlier. Rest of the physical exam and assessment and plan as per ICU note. Time Spent With Patient Time: Total time managing care of this patient today ____ minutes.
[2025-06-21 15:26] LABS: Sodium 151 mmol/L (135-145)
--- NOTE | 2025-06-21 16:47 | MHC.SL.SWA ---
Speech Pathologist Impression: Mild oropharyngeal dysphagia Risk of Aspiration Due to: Hx CVA Recently extubated Hx dysphagia Dysphasia Diet Status: Recommend patient UPGRADE to NDD1 (purees) and THIN liquids (STRAWS OK). Recc meds in puree or as pt prefers. 1-1 assist, pt wants to feed herself but needs support d/t UE weakness. SHAREPOINT ENGINEER to follow in monitoring pt tolerance of diet, upgrade if/when warranted. Liquid Consistency and Strategies for Safe Swallow: Liquid Intake Recommendation: Thin Liquid Intake Strategies: Solid Food Consistency: Dietary Recommendations: Pureed (NDD1) Additional Modifications to Solid Foods: Patient will need 1-1 feed. Patient can orally hold food, monitor for swallow before presenting more food. Alternate liquids and solids, liquids by controlled cup sip, no straws. Oral Medication Intake: Whole with Puree Please contact the pharmacy regarding appropriate crushable or liquid drug formulations that are available whenever modified delivery is recommended. Compensatory Strategies and Precautions to be Taken for Safe Swallow: Supervision While Eating and Drinking for Safe Swallow: Total Assistance (1:1) Foods to Avoid: too large pieces of food, mixed consistencies, difficult to chew solids. Swallowing Recommended Treatments: Recommendation for Speech: Inpatient Speech Therapy Comment: Pt presents with mildly delayed coordination in oromotor movements for both speech and oral phase of swallow. Pt was extubated yesterday, voicing clear but volume is reduced. Pt son at bedside, noting pt always wants to feed herself as pt declined SHAREPOINT ENGINEER assist. Pt tolerated sips of thins by straw with efficient oropharyngeal coordination, no anterior loss or overt s/s of aspiration. A gulping sound quality to pt's swallow occurred x3 across trials of gingerale, considered secondary to straw moving out of liquid when pt attempting to hold soda can herself. Pt would not accept help however. Pt took tps of puree with adequate oropharyngeal coordination, mildly delayed anterior to posterior transit of bolus and slight anterior loss d/t UE weakness when self-feeding. No overt s/s of aspiration observed with purees. SHAREPOINT ENGINEER reviewed recc diet with pt and pt son, pt son verbalized understanding and agreed with recc. RN consulted, MD and RN informed of diet recc via secure text. SHAREPOINT ENGINEER continues to follow, monitoring pt PO tolerance. Meds as pt prefers Frequency/Duration: Daily M-F Date Range for Service Req: Timeline to reassess: Data Processing Systems Project Planner Clinican/Clinical Fellow: No Supervisory Statement: I have reviewed and agree with the student/clinical fellow's documentation: N/A Speech Language Pathologist: Flores Kirby M.S., [facility]-SHAREPOINT ENGINEER
[2025-06-21] MEDS: levETIRAcetam in NaCl (iso-os) 500 MG/100 ML PIGGYBACK 400 MG IV (17:23)
[2025-06-21 18:22] LABS: Glucose, Whole Blood 138 mg/dL (60-115)
[2025-06-21 19:52] LABS: Glucose, Whole Blood 137 mg/dL (60-115)
[2025-06-21 21:35] LABS: Anion Gap 12 (12-20); Blood Urea Nitrogen 28 mg/dL (9-16); Calcium 8.7 mg/dL (8.4-10.2); Carbon Dioxide 29 mmol/L (22-29); Chloride 111 mmol/L (96-108); Creatinine Clr Calc Pharmacy 26.4; Estimated Glomerular Filt Rate 35; Potassium 3.8 mmol/L (3.3-5.1); Sodium 148 mmol/L (135-145)
[2025-06-22] VITALS (10 sets, daily range): BP systolic 99–115; BP diastolic 50–64; PULSE 60–76; RESP 16–20; TEMP 36.1–36.8; O2SAT 95–100
[2025-06-22] LABS: Glucose, Whole Blood 129 mg/dL (60-115)
[2025-06-22 05:35] LABS: Glucose, Whole Blood 124 mg/dL (60-115)
[2025-06-22] MEDS: Albuterol/Iprat 2.5/0.5MG 3 ML AMPUL.NEB INHALE ×4 (07:41→19:18)
[2025-06-22 07:50] LABS: MANUAL DIFF FLAG NO
--- NOTE | 2025-06-22 07:53 | HO.PM.IMPN ---
Subjective Subjective Date of Service: 06/22/25 Interval History: hypernatremia , uti Review of Systems mental status somewhat improving ,some more verbal Review of Systems: Yes all other systems are reviewed and are negative Physical Exam Exam: Exam: Appearance: more awake ,more verbal cvs: rrr, [id number] res:air netry fair , no rales or wheezing abd: no rebound or guarding ,nt, bs present. ext pulses present , no cyanosis . neuro:chronic facial droop and L-sided weakness. Vital Signs: Vital Signs: Last Vital Signs Temp 97.1 F 06/22/25 03:55 Pulse 69 06/22/25 07:42 Resp 16 06/22/25 07:42 BP 99/51 L 06/22/25 03:55 Pulse Ox 95 06/22/25 03:55 O2 Del Method Nasal Cannula 06/22/25 03:55 O2 Flow Rate 2 06/22/25 03:55 FiO2 35 06/20/25 09:59 Oxygen Flow Rate 2 06/17/25 12:56 BMI result Body Mass Index 24.2 Objective Data Active Medications Albuterol Sulfate (Albuterol Sulfate 90 Mcg 8 Gm Inhaler) 2 puff INHALE Q6H PRN PRN Reason: Wheezing Albuterol/Ipratropium (Albuterol/Iprat 2.5/0.5mg 3 Ml Ampul.Neb) 3 ml INHALE RQ4H WHILE AWAKE [facility] Last Admin: 06/22/25 07:41 Dose: 3 ml Documented By: KARI Clopidogrel Bisulfate (Clopidogrel Bisulfate 75 Mg Tablet) 75 mg PO DAILY [facility] Cyanocobalamin (Cyanocobalamin (Vitamin B-12) 500 Mcg Tablet) 500 mcg PO DAILY [facility] Docusate Sodium (Docusate Sodium 100 Mg Capsule) 100 mg PO BID [facility] Last Admin: 06/21/25 21:44 Dose: 100 mg Documented By: CHAGO Ferrous Sulfate (Ferrous Sulfate 324 Mg Tablet.Dr) 324 mg PO DAILY [facility] Fluoxetine HCl (Fluoxetine Hcl 20 Mg Capsule) 20 mg PO DAILY [facility] Folic Acid (Folic Acid 1 Mg Tablet) 0.5 mg PO DAILY [facility] Heparin Sodium (Porcine) (Heparin Sodium,Porcine 5,000 Unit/Ml Vial) 5,000 unit SUBCUT Q8H [facility] Last Admin: 06/21/25 23:46 Dose: 5,000 unit Documented By: CHAGO Ceftriaxone Sodium 1 gm/ (Sodium Chloride) 50 mls @ 100 mls/hr IV Q24H [facility] Last Infusion: 06/21/25 11:47 Dose: Infused Documented By: STEPHANE Levetiracetam 250 mg/ Sodium (Chloride) 102.5 mls @ 410 mls/hr IV BID [facility] Last Infusion: 06/21/25 21:56 Dose: Infused Documented By: CHAGO Insulin Human Lispro (Insulin Lispro 100 Unit/Ml 3 Ml Vial) 2 - 10 unit SUBCUT Q6H [facility]; Protocol Last Admin: 06/22/25 06:44 Dose: Not Given Documented By: CHAGO Non-Admin Reason: n//a Lactulose (Lactulose 20 Gm/30 Ml Solution) 30 gm PO BID [facility] Last Admin: 06/21/25 21:43 Dose: 30 gm Documented By: CHAGO Methimazole (Methimazole 5 Mg Tablet) 2.5 mg PO MOWEFR [facility] Metoprolol Succinate (Metoprolol Succinate Er 25 Mg Tab.Er.24h) 25 mg PO DAILY [facility]; Protocol Nystatin (Nystatin Powder 15 Gm Bottle) 1 appl TOPICAL BID [facility]; Protocol Last Admin: 06/21/25 21:44 Dose: 1 appl Documented By: CHAGO Oxybutynin Chloride (Oxybutynin Chloride Er 5 Mg Tab.Er.24) 5 mg PO DAILY [facility] Polyethylene Glycol (Polyethylene Glycol 3350 17 Gm Powd.Pack) 17 gm PO DAILY [facility] Last Admin: 06/21/25 21:42 Dose: 17 gm Documented By: CHAGO Pregabalin (Pregabalin 150 Mg Capsule) 150 mg PO TID [facility] Last Admin: 06/21/25 21:44 Dose: 150 mg Documented By: CHAGO Sodium Chloride (0.9 % Sodium Chloride Flush 3 Ml Syringe) 3 ml IVFLUSH QSHIFT [facility] Last Admin: 06/22/25 01:12 Dose: Not Given Documented By: CHAGO Non-Admin Reason: IV Running Vitamin D (Cholecalciferol (Vitamin D3) 25 Mcg Tablet) 25 mcg PO DAILY [facility] Zinc Oxide (Zinc Oxide 20% Ointment 28.35 Gm Tube) 1 appl TOPICAL DAILY PRN; Protocol PRN Reason: Wound Healing Last Admin: 06/21/25 21:44 Dose: 1 appl Documented By: CHAGO Labs 06/22/25 07:44 06/22/25 07:44 Labs: Laboratory Results - last 24 hr 06/21/25 06/21/25 06/21/25 11:41 18:19 19:47 Anion Gap Estim Creat Clear Calc Estimated GFR POC Glucose 141 H 138 H 137 H Random Glucose Calcium 06/21/25 06/21/25 06/22/25 20:59 23:57 05:32 Anion Gap 12 Estim Creat Clear Calc 26.4 Estimated GFR 35 POC Glucose 129 H 124 H Random Glucose 178 H Calcium 8.7 Assessment and Plan (1) Acute hypernatremia: Status: Acute (2) Cystitis: Status: Acute Assessment and Plan: 79-year-old lady with underlying history of CVA with left-sided hemiparesis, COPD on 2 L at baseline, diabetes mellitus, seizure disorder, chronic sacral decubitus wound, minimally verbal and nonambulatory presented to ER on 06/17/2025 for evaluation of lethargy and hypotension. On ER evaluation patient with IV fluid resuscitation requiring pressor support. She was started empiric antibiotics. Initial concern for obstructive renal calculus was not confirmed on closer review of her CT abdomen. Patient was admitted the intensive care unit for pressor support. Overnight 06/17/2025 patient with pulmonary aspiration requiring intubation ventilatory support. Extubated uneventfully on 06/20/2025. septic shock:suspected sec to uti septic shock improved urine culture mixed blood cultures negative @48hrs ct chest reviewed with pulm -need follow ct scan in 3 months . hyperNa given ivf d5w -seems improving 146 encouraged for po intake and hydration continue to moniter renal function/electrolytes iron deficiency anemia continue iron acute encephalopathy due to sepsis improving,baseline neuro deficits due to prior stroke + dementia chronic hypercapnic/chypoxic resp failure - home O2 with goal SaO2 no greater than 92% prior CVA on clopidogrel + atorvastatin hyperthyroidism- methimazole seizure disorder- levetiracetam neuropathy- pregabalin DM2- shae-dose lispro mood disorder- trazodone + fluoxetine wound care: Sacrum/coccyx deep tissue pressure injury present on admission : Off Load Pressure with Q2 hr turns and use of pillows - Cleanse with PH balance spray or wipes, pat dry. ?Apply thin layer of Triad to wound bed. Do not remove all of paste between applications as this may cause further skin damage.? Cover with foam dressing to aid in off loading and protection from friction. Change every other day and PRN. Bilateral heels: Elevate heels off of bed surface with pillows or boots. Float heels off of pillows. Apply skin prep allow to dry. Apply heel foam dressings, peel back and assess Q shift and change every 5-7 days and PRN. VTE prophylaxis s/c heparin ongoing need for stay-UTI/encephalopathy-mental status monitoring, IV antibiotics, also monitor renal function electrolytes in the setting of hypernatremia Quality Stroke Does the patient have a stroke diagnosis?: No VTE Prior VTE?: No VTE Risk Level:: Medical - moderate - high VTE Device Contraindication: Treatment Not Indicated VTE Drug Contraindication: N/A - Med Ordered
[2025-06-22 08:02] LABS: Hematocrit 27.1 % (37.0-47.0); Hemoglobin 8.3 g/dl (12.0-16.0); Imm Gran Abs Auto 0.02 X10*3/uL (0.00-0.03); Imm Gran Pct Auto 0.3 % (0.0-0.4); Lymphocytes Absolute Auto 1.0 X10*3/uL (1.2-4.9); Mean Corpuscular HGB Conc 30.6 g/dl (31.0-35.0); Mean Corpuscular Hemoglobin 27.2 pg (27.0-33.0); Mean Corpuscular Volume 88.9 fL (80.0-98.0); NRBC Abs Auto 0.000 X10*3/uL (0.0-0.012); NRBC Pct Auto 0.0 /100WBC (0.0-0.2); Platelet Count 106 X10*3/uL (160-400); Red Blood Count 3.05 X10*6/uL (4.20-5.50); White Blood Count 6.8 X10*3/uL (4.8-10.8)
[2025-06-22 08:06] LABS: Venous Blood Gas Refer to POC result
[2025-06-22 08:06] LABS: VBG HCO3 35 mmol/L (22-26); VBG O2 % Saturation 94.0 %
[2025-06-22 08:15] LABS: Albumin Level 3.4 g/dL (3.5-5.0); Anion Gap 11 (12-20); Blood Urea Nitrogen 27 mg/dL (9-16); Calcium 8.5 mg/dL (8.4-10.2); Carbon Dioxide 30 mmol/L (22-29); Chloride 109 mmol/L (96-108); Creatinine Clr Calc Pharmacy 26.2; Estimated Glomerular Filt Rate 35; Magnesium 1.9 mg/dL (1.6-2.6); Potassium 4.0 mmol/L (3.3-5.1); Sodium 146 mmol/L (135-145)
[2025-06-22] MEDS: 0.9 % Sodium Chloride Flush 3 ML SYRINGE IVFLUSH ×3 (08:58→23:32)
[2025-06-22] MEDS: Metoprolol Succinate ER 25 MG TAB.ER.24H PO (08:58)
[2025-06-22] MEDS: Ferrous Sulfate 324 MG TABLET.DR PO (08:59)
[2025-06-22] MEDS: oxyBUTYnin chloride ER 5 MG TAB.ER.24 PO (09:00)
[2025-06-22 11:40] LABS: Glucose, Whole Blood 133 mg/dL (60-115)
[2025-06-22 16:06] LABS: Glucose, Whole Blood 150 mg/dL (60-115)
[2025-06-22 20:24] LABS: Glucose, Whole Blood 107 mg/dL (60-115)
[2025-06-22] MEDS: Albuterol Sulfate 90 MCG 8 GM INHALER 2 PUFF INHALE (20:49)
[2025-06-23] VITALS (11 sets, daily range): BP systolic 105–113; BP diastolic 50–60; PULSE 58–82; RESP 16–20; TEMP 36.3–36.9; O2SAT 90–100
[2025-06-23 00:21] LABS: Glucose, Whole Blood 102 mg/dL (60-115)
[2025-06-23 07:20] LABS: Glucose, Whole Blood 87 mg/dL (60-115)
[2025-06-23] MEDS: Albuterol/Iprat 2.5/0.5MG 3 ML AMPUL.NEB INHALE ×4 (07:30→19:06)
[2025-06-23] MEDS: oxyBUTYnin chloride ER 5 MG TAB.ER.24 PO (07:51)
[2025-06-23] MEDS: Ferrous Sulfate 324 MG TABLET.DR PO (07:52)
[2025-06-23] MEDS: Metoprolol Succinate ER 25 MG TAB.ER.24H PO (07:53)
[2025-06-23] MEDS: 0.9 % Sodium Chloride Flush 3 ML SYRINGE IVFLUSH ×3 (07:56→23:00)
[2025-06-23 08:26] LABS: Anion Gap 13 (12-20); Blood Urea Nitrogen 28 mg/dL (9-16); Calcium 8.8 mg/dL (8.4-10.2); Carbon Dioxide 29 mmol/L (22-29); Chloride 109 mmol/L (96-108); Creatinine Clr Calc Pharmacy 24.1; Estimated Glomerular Filt Rate 32; Potassium 4.6 mmol/L (3.3-5.1); Sodium 146 mmol/L (135-145)
--- NOTE | 2025-06-23 11:47 | MHC.CLN ---
F/U PT TRANSFERRED TO MEDICAL FLOOR DIET ADVANCED TO 2GM NA PUREED PO INTAKE 25-50% SKIN WITH DTI TO COCCYX RECOMMEND ADDING ENSURE MAX BID TO PROMOTE WOUND HEALING SUPP TO PROVIDE 300CKALS, 60G PROTEIN MONITOR PO INTAKE AND ENCOURAGE SUPPLEMENTS
[2025-06-23 11:49] LABS: Glucose, Whole Blood 136 mg/dL (60-115)
--- NOTE | 2025-06-23 13:19 | MHC.CM.PN ---
CALL TO HCP, LUCIANO [phone]. PREFERENCE IS FOR PATIENT TO RETURN HOME WITH CONTINUATION OF 24 HOUR CARE AND HOME SERVICES.' LUCIANO WILL HAVE A STAFF MEMBER AT PATIENT'S HOME ([facility])FOR 16:00 TODAY. RN AWARE OF PLAN.
--- NOTE | 2025-06-23 14:33 | MHC.CM.PN ---
Addendum entered by Ericka Sidhu RN 06/23/25 15:56: DC HELD PENDING NEPHROLOGY CONSULT, NOW PLACED. RN, LUZ, AND HCP, LUCIANO AWARE. [facility] MADE AWARE. Original Note: PLAN IS FOR 17:00 [facility] HOME WITH 24 HOUR CAR AND MULTIPLE SERVICES ALREADY IN PLACE. HCP (LUCIANO [phone]) AWARE AND HAS STAFF WAITING. RN AWARE OF PLAN. IMM 06/23 IN CHART AND COPY SENT HOME WITH PATIENT PER REQUEST
--- NOTE | 2025-06-23 15:03 | MHC.SL.SWA ---
Speech Pathologist Impression: Mild oropharyngeal dysphagia Risk of Aspiration Due to: Hx CVA Generalized weakness Dysphasia Diet Status: Recommend THIN liquids (straws ok). Continue w/puree solids and meds as pt prefers. Assist pt with set-up, intermittent supervision. AUTOMOTIVE WHOLESALE PARTS ADVISOR to continue to follow to ensure toleration of diet and upgrade if/when warranted. Liquid Consistency and Strategies for Safe Swallow: Liquid Intake Recommendation: Thin Liquid Intake Strategies: Solid Food Consistency: Dietary Recommendations: Pureed (NDD1) Additional Modifications to Solid Foods: Oral Medication Intake: Whole with Puree Please contact the pharmacy regarding appropriate crushable or liquid drug formulations that are available whenever modified delivery is recommended. Compensatory Strategies and Precautions to be Taken for Safe Swallow: Sitting Upright (90 deg) Liquids from Straw Small Bites and Sips Alternate Liquids/Solids Rate of Ingestion Change Supervision While Eating and Drinking for Safe Swallow: Intermittent Supervision Foods to Avoid: Swallowing Recommended Treatments: Compens. Strategy Educat. Recommendation for Speech: Inpatient Speech Therapy Comment: Pt seen for dysphagia treatment, pt alert and communicative. COMMERCIAL FOOD INSTRUCTOR assisted AUTOMOTIVE WHOLESALE PARTS ADVISOR in boosting pt to sit upright for meal. Pt fed herself with improved UE control, though tremors persist. Pt tolerating bite sized boluses of purees and sips of thin liquids with straw without overt s/s or aspiration. AUTOMOTIVE WHOLESALE PARTS ADVISOR reviewed diet and recc with pt who verbalized agreement. AUTOMOTIVE WHOLESALE PARTS ADVISOR to continue following. Frequency/Duration: Daily M-F Date Range for Service Req: Timeline to reassess: Mover Clinican/Clinical Fellow: No Supervisory Statement: I have reviewed and agree with the student/clinical fellow's documentation: N/A Speech Language Pathologist: Flores Kirby M.S., CCC-AUTOMOTIVE WHOLESALE PARTS ADVISOR
[2025-06-23 16:15] LABS: Glucose, Whole Blood 134 mg/dL (60-115)
--- NOTE | 2025-06-23 17:02 | P.PNIM_ITS ---
Subjective Subjective Date of Service: 06/23/25 Interval History: harley, hypernatremia Review of Systems seems similar Physical Exam 2 Exam: Exam: Appearance: more awake ,more verbal cvs: rrr, [id number] res:air netry fair , no rales or wheezing abd: no rebound or guarding ,nt, bs present. ext pulses present , no cyanosis . neuro:chronic facial droop and L-sided weakness Vital Signs: Vital Signs: Last Vital Signs Temp 98.5 F 06/23/25 15:04 Pulse 73 06/23/25 16:08 Resp 16 06/23/25 16:08 BP 106/53 L 06/23/25 15:04 Pulse Ox 94 06/23/25 15:04 O2 Del Method Nasal Cannula 06/23/25 15:04 O2 Flow Rate 2 06/23/25 15:04 FiO2 35 06/20/25 09:59 Oxygen Flow Rate 2 06/17/25 12:56 BMI result Body Mass Index 24.2 Objective Data Active Medications Albuterol Sulfate (Albuterol Sulfate 90 Mcg 8 Gm Inhaler) 2 puff INHALE Q6H PRN PRN Reason: Wheezing Last Admin: 06/22/25 20:49 Dose: 2 puff Documented By: MILES Albuterol/Ipratropium (Albuterol/Iprat 2.5/0.5mg 3 Ml Ampul.Neb) 3 ml INHALE RQ4H WHILE AWAKE [facility] Last Admin: 06/23/25 15:47 Dose: 3 ml Documented By: GABRIELLE Clopidogrel Bisulfate (Clopidogrel Bisulfate 75 Mg Tablet) 75 mg PO DAILY [facility] Last Admin: 06/23/25 07:51 Dose: 75 mg Documented By: XAVIER Cyanocobalamin (Cyanocobalamin (Vitamin B-12) 500 Mcg Tablet) 500 mcg PO DAILY [facility] Last Admin: 06/23/25 07:51 Dose: 500 mcg Documented By: XAVIER Dextrose (Dextrose 50 % 25 Gm/50 Ml Syringe) 25 gm IVPUSH Q15M PRN; Protocol PRN Reason: per Hypoglycemia Standing Ord. Docusate Sodium (Docusate Sodium 100 Mg Capsule) 100 mg PO BID [facility] Last Admin: 06/23/25 07:52 Dose: 100 mg Documented By: XAVIER Ferrous Sulfate (Ferrous Sulfate 324 Mg Tablet.) 324 mg PO DAILY [facility] Last Admin: 06/23/25 07:52 Dose: 324 mg Documented By: XAVIER Fluoxetine HCl (Fluoxetine Hcl 20 Mg Capsule) 20 mg PO DAILY [facility] Last Admin: 06/23/25 07:51 Dose: 20 mg Documented By: XAVIER Folic Acid (Folic Acid 1 Mg Tablet) 0.5 mg PO DAILY [facility] Last Admin: 06/23/25 07:51 Dose: 0.5 mg Documented By: XAVIER Glucose (Glucose Gel 15 Gm Gel..Gram.) 15 gm PO Q15M PRN; Protocol PRN Reason: per Hypoglycemia Standing Ord. Heparin Sodium (Porcine) (Heparin Sodium,Porcine 5,000 Unit/Ml Vial) 5,000 unit SUBCUT Q8H [facility] Last Admin: 06/23/25 14:59 Dose: 5,000 unit Documented By: XAVIER Ceftriaxone Sodium 1 gm/ (Sodium Chloride) 50 mls @ 100 mls/hr IV Q24H [facility] Last Infusion: 06/23/25 11:12 Dose: Infused Documented By: XAVIER Levetiracetam 250 mg/ Sodium (Chloride) 102.5 mls @ 410 mls/hr IV BID [facility] Last Infusion: 06/23/25 11:12 Dose: Infused Documented By: XAVIER Dextrose (D5w) 1,000 mls @ 75 mls/hr IVCONT .[id number] [facility] Last Admin: 06/23/25 15:39 Dose: 75 mls/hr Documented By: XAVIER Insulin Human Lispro (Insulin Lispro 100 Unit/Ml 3 Ml Vial) 0 unit SUBCUT QIDACHS [facility]; Protocol Last Admin: 06/23/25 11:55 Dose: Not Given Documented By: XAVIER Non-Admin Reason: No Insulin Coverage Lactulose (Lactulose 20 Gm/30 Ml Solution) 30 gm PO BID [facility] Last Admin: 06/23/25 07:53 Dose: 30 gm Documented By: XAVIER Methimazole (Methimazole 5 Mg Tablet) 2.5 mg PO MOWEFR [facility] Last Admin: 06/23/25 07:59 Dose: 2.5 mg Documented By: XAVIER Metoprolol Succinate (Metoprolol Succinate Er 25 Mg Tab.Er.24h) 25 mg PO DAILY [facility]; Protocol Last Admin: 06/23/25 07:53 Dose: 25 mg Documented By: XAVIER Nystatin (Nystatin Powder 15 Gm Bottle) 1 appl TOPICAL BID [facility]; Protocol Last Admin: 06/23/25 07:57 Dose: 1 appl Documented By: XAVIER Oxybutynin Chloride (Oxybutynin Chloride Er 5 Mg Tab.Er.24) 5 mg PO DAILY [facility] Last Admin: 06/23/25 07:51 Dose: 5 mg Documented By: XAVIER Polyethylene Glycol (Polyethylene Glycol 3350 17 Gm Powd.Pack) 17 gm PO DAILY [facility] Last Admin: 06/23/25 07:53 Dose: 17 gm Documented By: XAVIER Pregabalin (Pregabalin 150 Mg Capsule) 150 mg PO TID [facility] Last Admin: 06/23/25 14:59 Dose: 150 mg Documented By: XAVIER Sodium Chloride (0.9 % Sodium Chloride Flush 3 Ml Syringe) 3 ml IVFLUSH QSHIFT [facility] Last Admin: 06/23/25 15:01 Dose: 3 ml Documented By: XAVIER Vitamin D (Cholecalciferol (Vitamin D3) 25 Mcg Tablet) 25 mcg PO DAILY [facility] Last Admin: 06/23/25 07:56 Dose: 25 mcg Documented By: XAVIER Zinc Oxide (Zinc Oxide 20% Ointment 28.35 Gm Tube) 1 appl TOPICAL DAILY PRN; Protocol PRN Reason: Wound Healing Last Admin: 06/21/25 21:44 Dose: 1 appl Documented By: ABBYSU Labs 06/22/25 07:44 06/23/25 08:05 Labs: Laboratory Results - last 24 hr 06/22/25 06/23/25 06/23/25 20:19 00:17 07:16 Hold Purple Top Anion Gap Estim Creat Clear Calc Estimated GFR POC Glucose 107 102 87 Random Glucose Calcium 06/23/25 06/23/25 06/23/25 08:05 11:44 16:08 Hold Purple Top SEE NOTE Anion Gap 13 Estim Creat Clear Calc 24.1 Estimated GFR 32 POC Glucose 136 H 134 H Random Glucose 92 Calcium 8.8 Microbiology Microbiology Results: Microbiology 06/17/25 13:14 Blood Culture - Final Blood - Venous No growth after 5 days. 06/17/25 13:14 Blood Culture - Final Blood - Venous No growth after 5 days. Assessment and Plan (1) Acute hypernatremia: Status: Acute (2) Cystitis: Status: Acute Assessment and Plan: 79-year-old lady with underlying history of CVA with left-sided hemiparesis, COPD on 2 L at baseline, diabetes mellitus, seizure disorder, chronic sacral decubitus wound, minimally verbal and nonambulatory presented to ER on 06/17/2025 for evaluation of lethargy and hypotension. On ER evaluation patient with IV fluid resuscitation requiring pressor support. She was started empiric antibiotics. Initial concern for obstructive renal calculus was not confirmed on closer review of her CT abdomen. Patient was admitted the intensive care unit for pressor support. Overnight 06/17/2025 patient with pulmonary aspiration requiring intubation ventilatory support. Extubated uneventfully on 06/20/2025. septic shock:suspected sec to uti septic shock improved urine culture mixed blood cultures negative @48hrs ct chest reviewed with pulm -need follow ct scan in 3 months . harley /hyperNa added ivf d5w -seems improving 146 encouraged for po intake and hydration continue to moniter renal function/electrolytes iron deficiency anemia continue iron acute encephalopathy due to sepsis improving,baseline neuro deficits due to prior stroke + dementia chronic hypercapnic/chypoxic resp failure - home O2 with goal SaO2 no greater than 92% prior CVA on clopidogrel + atorvastatin hyperthyroidism- methimazole seizure disorder- levetiracetam neuropathy- pregabalin DM2- shae-dose lispro mood disorder- trazodone + fluoxetine wound care: Sacrum/coccyx deep tissue pressure injury present on admission : Off Load Pressure with Q2 hr turns and use of pillows - Cleanse with PH balance spray or wipes, pat dry. ?Apply thin layer of Triad to wound bed. Do not remove all of paste between applications as this may cause further skin damage.? Cover with foam dressing to aid in off loading and protection from friction. Change every other day and PRN. Bilateral heels: Elevate heels off of bed surface with pillows or boots. Float heels off of pillows. Apply skin prep allow to dry. Apply heel foam dressings, peel back and assess Q shift and change every 5-7 days and PRN. VTE prophylaxis s/c heparin ongoing need for stay-UTI/encephalopathy-mental status monitoring, IV antibiotics, also monitor renal function electrolytes in the setting of hypernatremia Quality Stroke Does the patient have a stroke diagnosis?: No VTE Prior VTE?: No VTE Risk Level:: Medical - moderate - high VTE Device Contraindication: Treatment Not Indicated VTE Drug Contraindication: N/A - Med Ordered
--- NOTE | 2025-06-23 17:08 | P.CONNP_ITS ---
History of Present Illness Reason for Consult Consult date: 06/23/25 Reason for consult: Sodium 146 Chief Complaint Chief complaint: AMS History of Present Illness Narrative: Rosi Hernández is a 78-year-old lady with multiple significant comorbidities at baseline, bed-bound/recliner bound with past medical history of CVA with left- sided hemiparesis, COPD on home oxygen, CHF, hypertension, diabetes mellitus, dementia, seizure disorder he is admitted to the hospital due to poor mental status, needing intubation and ventilator support, she was eventually extubated and transferred to the floor. Nephrology is consulted for the management of hypernatremia with sodium 146. Review of Systems Review of Systems Unable to obtain [facility] Past Medical History Medical History (Updated 06/21/25 @ 09:59 by Romaine Lazaro MD) Congestive heart failure Non-insulin dependent type 2 diabetes mellitus Aortic stenosis Seizure Dementia Seizure COPD (chronic obstructive pulmonary disease) Peripheral neuropathy HLD (hyperlipidemia) CVA (cerebral vascular accident) Heart failure, unspecified Social History Social History Household Members: Unknown / Unable to assess Housing: Unknown / Unable to assess Housing Other:: residential Do you presently have visiting nurse or other home services: Yes Alcohol intake: former Comment: non ambulatory pt Patient Tobacco Use Status: Never used Tobacco Second Hand Smoke Exposure: No Advance Directives Date on File: 09/15/23 service: No Meds Allergies Allergy/AdvReac Type Severity Reaction Status Date / Time Penicillins Allergy Unknown Verified 06/17/25 13:29 piroxicam Allergy Unknown Verified 06/17/25 13:29 shrimp Allergy Hives Verified 06/17/25 13:29 Sulfa (Sulfonamide Allergy Unknown Verified 06/17/25 13:29 Antibiotics) Active Medications: Current Medications Albuterol Sulfate (Albuterol Sulfate 90 Mcg 8 Gm Inhaler) 2 puff INHALE Q6H PRN PRN Reason: Wheezing Last Admin: 06/22/25 20:49 Dose: 2 puff Albuterol/Ipratropium (Albuterol/Iprat 2.5/0.5mg 3 Ml Ampul.Neb) 3 ml INHALE RQ4H WHILE AWAKE [facility] Last Admin: 06/23/25 15:47 Dose: 3 ml Clopidogrel Bisulfate (Clopidogrel Bisulfate 75 Mg Tablet) 75 mg PO DAILY [facility] Last Admin: 06/23/25 07:51 Dose: 75 mg Cyanocobalamin (Cyanocobalamin (Vitamin B-12) 500 Mcg Tablet) 500 mcg PO DAILY [facility] Last Admin: 06/23/25 07:51 Dose: 500 mcg Dextrose (Dextrose 50 % 25 Gm/50 Ml Syringe) 25 gm IVPUSH Q15M PRN; Protocol PRN Reason: per Hypoglycemia Standing Ord. Docusate Sodium (Docusate Sodium 100 Mg Capsule) 100 mg PO BID [facility] Last Admin: 06/23/25 07:52 Dose: 100 mg Ferrous Sulfate (Ferrous Sulfate 324 Mg Tablet.Dr) 324 mg PO DAILY [facility] Last Admin: 06/23/25 07:52 Dose: 324 mg Fluoxetine HCl (Fluoxetine Hcl 20 Mg Capsule) 20 mg PO DAILY [facility] Last Admin: 06/23/25 07:51 Dose: 20 mg Folic Acid (Folic Acid 1 Mg Tablet) 0.5 mg PO DAILY [facility] Last Admin: 06/23/25 07:51 Dose: 0.5 mg Glucose (Glucose Gel 15 Gm Gel..Gram.) 15 gm PO Q15M PRN; Protocol PRN Reason: per Hypoglycemia Standing Ord. Heparin Sodium (Porcine) (Heparin Sodium,Porcine 5,000 Unit/Ml Vial) 5,000 unit SUBCUT Q8H [facility] Last Admin: 06/23/25 14:59 Dose: 5,000 unit Ceftriaxone Sodium 1 gm/ (Sodium Chloride) 50 mls @ 100 mls/hr IV Q24H [facility] Last Infusion: 06/23/25 11:12 Dose: Infused Levetiracetam 250 mg/ Sodium (Chloride) 102.5 mls @ 410 mls/hr IV BID [facility] Last Infusion: 06/23/25 11:12 Dose: Infused Dextrose (D5w) 1,000 mls @ 125 mls/hr IVCONT .Q8H [facility] Last Admin: 06/23/25 15:39 Dose: 75 mls/hr Insulin Human Lispro (Insulin Lispro 100 Unit/Ml 3 Ml Vial) 0 unit SUBCUT QIDACHS [facility]; Protocol Last Admin: 06/23/25 11:55 Dose: Not Given Lactulose (Lactulose 20 Gm/30 Ml Solution) 30 gm PO BID [facility] Last Admin: 06/23/25 07:53 Dose: 30 gm Methimazole (Methimazole 5 Mg Tablet) 2.5 mg PO MOWEFR [facility] Last Admin: 06/23/25 07:59 Dose: 2.5 mg Metoprolol Succinate (Metoprolol Succinate Er 25 Mg Tab.Er.24h) 25 mg PO DAILY [facility]; Protocol Last Admin: 06/23/25 07:53 Dose: 25 mg Nystatin (Nystatin Powder 15 Gm Bottle) 1 appl TOPICAL BID [facility]; Protocol Last Admin: 06/23/25 07:57 Dose: 1 appl Oxybutynin Chloride (Oxybutynin Chloride Er 5 Mg Tab.Er.24) 5 mg PO DAILY [facility] Last Admin: 06/23/25 07:51 Dose: 5 mg Polyethylene Glycol (Polyethylene Glycol 3350 17 Gm Powd.Pack) 17 gm PO DAILY [facility] Last Admin: 06/23/25 07:53 Dose: 17 gm Pregabalin (Pregabalin 150 Mg Capsule) 150 mg PO TID [facility] Last Admin: 06/23/25 14:59 Dose: 150 mg Sodium Chloride (0.9 % Sodium Chloride Flush 3 Ml Syringe) [facility] Last Admin: 06/23/25 15:01 Dose: 3 ml Vitamin D (Cholecalciferol (Vitamin D3) 25 Mcg Tablet) 25 mcg PO DAILY [facility] Last Admin: 06/23/25 07:56 Dose: 25 mcg Zinc Oxide (Zinc Oxide 20% Ointment 28.35 Gm Tube) 1 appl TOPICAL DAILY PRN; Protocol PRN Reason: Wound Healing Last Admin: 06/21/25 21:44 Dose: 1 appl Home Medications ?Medication ?Instructions ?Recorded ?Confirmed ?Last Taken ?Type atorvastatin 80 mg tablet 80 mg PO BEDTIME 08/02/2306/02/24 History cholecalciferol (vitamin D3) 25 25 mcg PO DAILY 06/17/25 06/02/24 History mcg (1,000 unit) tablet clopidogrel 75 mg tablet 75 mg PO DAILY 08/02/2305/2506/02/24 History cyanocobalamin (vitamin B-12) 500 500 mcg PO DAILY 05/1606/17/25 06/02/24 History mcg tablet fluoxetine 20 mg capsule 20 mg PO DAILY 08/02/2305/2506/02/24 History folic acid 400 mcg tablet 0.4 mg PO DAILY 01/05/1606/02/24 History glipizide 5 mg tablet, extended 5 mg PO DAILY 08/02/23 06/17/25 06/02/24 History release 24 hr metoprolol succinate 25 mg 25 mg PO DAILY 08/02/2306/02/24 History tablet,extended release 24 hr oxybutynin chloride 5 mg 5 mg PO DAILY 08/02/2306/1706/02/24 History tablet,extended release 24 hr pregabalin 150 mg capsule 150 mg PO TID 08/02/2306/1706/02/24 History trazodone 100 mg tablet 100 mg PO BEDTIME 08/02/23 1 08/17/24 06/02/24 History zinc oxide 20 % topical ointment 1 appl topical DAILY PRN Wound 08/02/23 06/17/25 Unknown History Healing levetiracetam 250 mg tablet 250 mg PO BID 09/10/2306/02/24 History (Keppra) albuterol sulfate 90 mcg/actuation 2 puff inhalation Q 6H PRN wheezing 04/18/24 06/17/25 Unknown History aerosol inhaler (Ventolin HFA) methimazole 5 mg tablet 2.5 mg PO MOWEFR 04/18/2406/02/24 History docusate sodium 100 mg capsule 100 mg PO BID 11/07/24 06/17/25 Unknown History furosemide 40 mg tablet 20 mg PO BID 11/07/24 Unknown History ferrous sulfate 324 mg (65 mg 324 mg PO DAILY 06/17/25 06/17/25 Unknown History iron) tablet,delayed release Physical Exam Vital Signs: Last Vital Signs Temp 98.5 F 06/23/25 15:04 Pulse 73 06/23/25 16:08 Resp 16 06/23/25 16:08 BP 106/53 L 06/23/25 15:04 Pulse Ox 94 06/23/25 15:04 O2 Del Method Nasal Cannula 06/23/25 15:04 O2 Flow Rate 2 06/23/25 15:04 FiO2 35 06/20/25 09:59 Oxygen Flow Rate 2 06/17/25 12:56 BMI result Body Mass Index 24.2 General: not in any acute distress, ill appearing Nutritional Appearance: Poor nourished and normal weight Eyes: appearance normal, both eyes and all related structures; Alignment and Position: alignment normal and position normal Neck: No lymphadenopathy, no thyromegaly Resp: bilateral air entry equal, no added sounds present Cardio: Regular rate, regular rhythm; Heart sounds: S1 normal heart sound present and S2 normal heart sound present GI: soft, nontender, no guarding, no hepatosplenomegaly : bladder normal to inspection, bladder normal to palpation, no renal angle tenderness Skin: no rashes or lesions noted and elasticity normal Neuro: Significant neuro deficits at baseline Results Lab Results 06/22/25 07:44 06/23/25 08:05 Lab results: Chemistry 06/21/25 06/21/25 06/21/25 05:02 15:02 20:59 Sodium 154 H 151 H 148 H Potassium 4.0 3.8 Carbon Dioxide 28 29 BUN 29 H 28 H Creatinine 1.58 H 1.43 H Calcium 8.8 8.7 Phosphorus 2.8 06/22/25 06/23/25 07:44 08:05 Sodium 146 H 146 H Potassium 4.0 4.6 Carbon Dioxide 30 H 29 BUN 27 H 28 H Creatinine 1.44 H 1.56 H Calcium 8.5 8.8 Phosphorus 2.9 Hematology 06/21/25 06/22/25 05:02 07:44 WBC 8.8 6.8 Hgb 8.6 L 8.3 L Plt Count 79 L 106 L D Assessment and Plan (1) Congestive heart failure: Status: Acute (2) Acute hypernatremia: Status: Acute Plan Acute hypernatremia: Currently sodium is 146, decreased from peak of 159 upon admission so nephrology is consulted Patient is on D5 water at 75 cc/hour, we will increase to 125 cc/hour to decrease the free water deficit. Please get urine sodium, urine osmoles. Getting 850 mL of normal saline with Keppra and 100 mL of normal saline with ceftriaxone; please switch both of them to oral medications. Nephrology will sign off Procedures Date of Service Date of Service: 06/23/25
--- NOTE | 2025-06-23 18:25 | PC.NURSE ---
Bladder scanned pt for 322. MD notified. Stated monitor until over 350ml
[2025-06-23 20:54] LABS: Glucose, Whole Blood 147 mg/dL (60-115)
[2025-06-24] VITALS (7 sets, daily range): BP systolic 108–134; BP diastolic 56–69; PULSE 60–68; RESP 14–18; TEMP 36.6–36.8; O2SAT 90–98
[2025-06-24 07:30] LABS: Glucose, Whole Blood 130 mg/dL (60-115)
[2025-06-24] MEDS: Albuterol/Iprat 2.5/0.5MG 3 ML AMPUL.NEB INHALE ×3 (07:34→15:05)
[2025-06-24] MEDS: oxyBUTYnin chloride ER 5 MG TAB.ER.24 PO (07:44)
[2025-06-24] MEDS: Metoprolol Succinate ER 25 MG TAB.ER.24H PO (07:44)
[2025-06-24] MEDS: Ferrous Sulfate 324 MG TABLET.DR PO (07:44)
[2025-06-24] MEDS: 0.9 % Sodium Chloride Flush 3 ML SYRINGE IVFLUSH ×2 (08:02→14:47)
[2025-06-24 10:08] LABS: Anion Gap 9 (12-20); Blood Urea Nitrogen 29 mg/dL (9-16); Calcium 8.5 mg/dL (8.4-10.2); Carbon Dioxide 29 mmol/L (22-29); Chloride 102 mmol/L (96-108); Creatinine Clr Calc Pharmacy 23.7; Estimated Glomerular Filt Rate 31; Potassium 4.2 mmol/L (3.3-5.1); Sodium 136 mmol/L (135-145)
[2025-06-24 11:33] LABS: Glucose, Whole Blood 124 mg/dL (60-115)
--- NOTE | 2025-06-24 13:59 | PM.DS ---
DS: Providers Provider Date of Service: 06/24/25 Date of admission: 06/17/25 15:22 Date of discharge: 06/24/25 Primary care physician: Cliff Walsh MD Consults: 06/17/25 15:22 Consult to Urology Stat Consulting Provider: [facility] [place] [facility] Reason for consultation: infected obstructing kidney stone, obstructive uropathy, septic shock Has provider been notified: Yes 06/18/25 11:01 Consult to Wound Care Routine Consulting Provider: [facility] [place] [facility] Reason for consultation: Chronic sacral wound 06/23/25 14:57 Consult to Nephrology Routine Consulting Provider: [facility] [place] [facility] Reason for consultation: harley,hypernatremia Attending physician on discharge: Manolo Lozano Discharging clinician: Manolo Lozano DS: Diagnosis Discharge Diagnosis (1) Congestive heart failure: Status: Acute (2) Acute hypernatremia: Status: Acute DS: Summary Hospital Course Hospital Course: HPI: 79-year-old lady with underlying history of CVA with left-sided hemiparesis, COPD on 2 L at baseline, diabetes mellitus, seizure disorder, chronic sacral decubitus wound, minimally verbal and nonambulatory presented to ER on 06/17/2025 for evaluation of lethargy and hypotension. On ER evaluation patient with IV fluid resuscitation requiring pressor support. She was started empiric antibiotics. Her CT abdomen demonstrated left-sided obstructing calculus. Urology was consulted and is planning stenting. Patient was admitted the intensive care unit for further management. Hospital course: 79-year-old lady with underlying history of CVA with left-sided hemiparesis, COPD on 2 L at baseline, diabetes mellitus, seizure disorder, chronic sacral decubitus wound, minimally verbal and nonambulatory presented to ER on 06/17/2025 for evaluation of lethargy and hypotension. On ER evaluation patient with IV fluid resuscitation requiring pressor support. She was started empiric antibiotics. Initial concern for obstructive renal calculus was not confirmed on closer review of her CT abdomen. Patient was admitted the intensive care unit for pressor support. Overnight 06/17/2025 patient with pulmonary aspiration requiring intubation ventilatory support. Extubated uneventfully on 06/20/2025. septic shock:suspected sec to uti septic shock improved urine culture mixed blood cultures negative @48hrs ct chest reviewed with pulm Dr Iveth for pulmonary nodules (see ct chest imaging in below section)-need follow ct scan in 3 months . harley /hyperNa Improving, hyponatremia resolved. Encouraged for p.o. intake. Speech and swallow eason patiently currently on pureed diet, follow up outpatient with the speech and swallow for further advancement of diet. Creatinine is 1.5, nephrology recommended to hold off Lasix for now. And further renal function monitoring outpatient. iron deficiency anemia continue iron acute encephalopathy due to sepsis improved to baseline neuro deficits due to prior stroke + dementia chronic hypercapnic/chypoxic resp failure sec to copd- home O2 with goal SaO2 no greater than 92% DM2- adjusted glipizide due to borderline fingersticks. wound care: Sacrum/coccyx deep tissue pressure injury present on admission : Off Load Pressure with Q2 hr turns and use of pillows - Cleanse with PH balance spray or wipes, pat dry. ?Apply thin layer of Triad to wound bed. Do not remove all of paste between applications as this may cause further skin damage.? Cover with foam dressing to aid in off loading and protection from friction. Change every other day and PRN. Bilateral heels: Elevate heels off of bed surface with pillows or boots. Float heels off of pillows. Apply skin prep allow to dry. Apply heel foam dressings, peel back and assess Q shift and change every 5-7 days and PRN. plan: compete antibiotics ct scan chest incidental findings:Multiple thyroid nodules measuring up to 2 cm. Recommend follow-up thyroid ultrasound. Follow-up with Pulmonary and CT scan chest in 3 months for pulmonary nodules. hold lasix until seen by nephro, repeat bmp before starting lasix . adjusted glipizide to 2.5 mg due to fs (boderline) , moniter po intake and fs outpatient . also follow up outpatient with PCP and Nephrology, monitor renal function and electrolytes outpatient. Assessment and plan coordination time spent 50 minute. Time Attestation Total time managing care of this patient today: 50 mintues. Discharge Coordination Time (in mins): 50 minute Quality: Safe Use of Opioids Does Pt have an Active Cancer Diagnosis on the Problem List?: No Quality: Stroke Does the patient have a stroke diagnosis?: No Physical Exam Exam: Exam: Appearance: more awake ,more verbal cvs: rrr, [id number] res:air netry fair , no rales or wheezing abd: no rebound or guarding ,nt, bs present. ext pulses present , no cyanosis . neuro:chronic facial droop and L-sided weakness. Vital Signs: Vital Signs: Last Vital Signs Temp 98.1 F 06/24/25 11:13 Pulse 60 06/24/25 11:13 Resp 18 06/24/25 11:13 BP 126/60 06/24/25 11:13 Pulse Ox 94 06/24/25 11:13 O2 Del Method Nasal Cannula 06/24/25 11:13 O2 Flow Rate 2 06/24/25 11:13 FiO2 35 06/20/25 09:59 Oxygen Flow Rate 2 06/17/25 12:56 BMI result Body Mass Index 24.2 DS: Data Data Completed and Pending Completed studies during hospitalization [Text1]: Procedures Insertion of Endotracheal Airway into Trachea, Via Natural or Artificial Opening (06/02/24) Introduction of Remdesivir Anti-infective into Peripheral Vein, Percutaneous Approach, [employer] (08/02/23) Introduction of Vasopressor into Peripheral Vein, Percutaneous Approach (11/07/24) Respiratory Ventilation, Less than 24 Consecutive Hours (06/02/24) Labs on day of discharge: Laboratory Results - last 24 hr 06/23/25 06/23/25 06/24/25 16:08 20:51 07:26 Hold Purple Top Sodium Potassium Chloride Carbon Dioxide Anion Gap BUN Creatinine Estim Creat Clear Calc Estimated GFR POC Glucose 134 H 147 H 130 H Random Glucose Calcium 06/24/25 06/24/25 09:15 11:17 Hold Purple Top SEE NOTE Sodium 136 Potassium 4.2 Chloride 102 Carbon Dioxide 29 Anion Gap 9 L BUN 29 H Creatinine 1.59 H Estim Creat Clear Calc 23.7 Estimated GFR 31 POC Glucose 124 H Random Glucose 122 H Calcium 8.5 Imaging Chest x-ray: Radiologist's impression: ITS Impressions Chest X-Ray 06/17/25 13:45 IMPRESSION: Low lung volumes. No evidence for acute disease in the chest. Abdomen/Pelvis CT 06/17/25 14:52 IMPRESSION: Severe constipation. Curry catheter in the bladder with small amount of remaining fluid and air. Bladder wall thickening. Question cystitis versus changes from bladder outlet obstruction. Correlation with urinalysis recommended. Diverticulosis of the colon. No evidence of diverticulitis. Severe atherosclerotic disease. Left renal hyperdense and simple cysts. Probable tiny gallstone. Chest CT 06/17/25 14:52 IMPRESSION: Increasing size and number of right upper lobe nodules. Infectious, inflammatory and neoplastic processes should be considered. Elevated right hemidiaphragm and subsegmental atelectasis at the right lung base. Right lower lobe bronchial wall thickening and mucous plugging. 5 mm lingular nodule probably unchanged. Enlarged precarinal mediastinal lymph node similar to previous exam. Multiple thyroid nodules measuring up to 2 cm. Recommend follow-up thyroid ultrasound. Severe coronary artery calcification and post-CABG changes. There is severe aortic valve calcification. Clinically correlate for stenosis. Electronically signed by: Marry Sheffield MD 06/17/2025 04:[address] 06/17/25 14:52 IMPRESSION: No acute intracranial abnormality. Discharge Plan Discharge Anticipated Discharge Date/Time: 06/23/25 14:56 Patient Disposition: Home Health Service Discharge Diagnosis: harley,hypernatremia Referrals: [facility] [Other] - 1 Week Referral Note: RESUMPTION OF VISITING NURSE Joanne RAMOS [Outside] - 1 Week Referral Note: A SPEECH THERAPIST WILL REACH OUT TO YOU TO ARRANGE FIRST VISIT WITHIN 48HRS OF DISCHARGE. Roberto Warner MD [Physician, Critical Care ([facility])] - 1 Week Cliff Walsh MD [Primary Care Provider, Internal Medicine] - 1 Week Discharge Medications: New cefuroxime axetil 250 mg Tablet 250 mg PO Q12H Qty: 12 0RF Continued levetiracetam [Keppra] 250 mg Tablet 250 mg PO BID methimazole 5 mg tablet 2.5 mg PO MOWEFR albuterol sulfate [Ventolin HFA] 90 mcg/actuation HFA aerosol inhaler 2 puff inhalation Q6H PRN (Reason: wheezing) docusate sodium 100 mg capsule 100 mg PO BID ferrous sulfate 324 mg (65 mg iron) tablet,delayed release (DR/EC) 324 mg PO DAILY atorvastatin 80 mg tablet 80 mg PO BEDTIME clopidogrel 75 mg tablet 75 mg PO DAILY folic acid 400 mcg tablet 0.4 mg PO DAILY cyanocobalamin (vitamin B-12) 500 mcg tablet 500 mcg PO DAILY oxybutynin chloride 5 mg tablet extended release 24hr 5 mg PO DAILY fluoxetine 20 mg capsule 20 mg PO DAILY zinc oxide 20 % Ointment 1 appl TOPICAL DAILY PRN (Reason: Wound Healing) Rx Instructions: apply to buttocks trazodone 100 mg tablet 100 mg PO BEDTIME pregabalin 150 mg capsule 150 mg PO TID cholecalciferol (vitamin D3) 25 mcg (1,000 unit) tablet 25 mcg PO DAILY metoprolol succinate 25 mg tablet extended release 24 hr 25 mg PO DAILY Changed glipizide 5 mg tablet extended release 24hr 2.5 mg PO DAILY Qty: 1 0RF Discontinued furosemide 40 mg tablet 20 mg PO BID Discharge Orders: Discharge Order (Routine); Ordered 06/24/25 Ordered By: Manolo Lozano Diet: Advance to usual diet Activity on Discharge: As tolerated Stand Alone Forms: Patient Portal Discharge page Print Language: Swedish Other Ambulatory Orders: Basic Metabolic Panel (Routine) Timeframe: 1 Week Facility: [facility] - Location: Laboratory Ordered By: Manolo Lozano Activity Restrictions/Additional Instructions: Topical Wound Care Recommendations: 1. Turn and Reposition every 2 hours and as needed for patient comfort. Use pillows or wedges to support off loading positions. 2. Off Load all bony prominences with use of pillows and heel boots if available. 3. Monitor for incontinence and moisture control, use barrier creams when needed for prevention and treatment. 4. Provide adequate and supplemental nutrition. 5. When applicable maintain blood glucose levels per Providers order. Coccyx/Sacrum: Off Load Pressure with Q2 hr turns and use of pillows - Cleanse with PH balance spray or wipes, pat dry. ?Apply thin layer of Triad to wound bed. Do not remove all of paste between applications as this may cause further skin damage.? Cover with foam dressing to aid in off loading and protection from friction. Change every other day and PRN. Bilateral heels: Elevate heels off of bed surface with pillows or boots. Float heels off of pillows. Apply skin prep allow to dry. Apply heel foam dressings, peel back and assess Q shift and change every 5-7 days and PRN. Care Plan Goals: compete antibiotics hold lasix until seen by nephro, repeat bmp before starting lasix . adjusted glipizide to 2.5 mg due to fs (boderline) , moniter po intake and fs outpatient . also follow up outpatient with PCP and Nephrology, monitor renal function and electrolytes outpatient. Health Concerns: as above. Plan of Treatment: as above. Assessment: as above.
--- NOTE | 2025-06-24 13:59 | W.MHC.F2F ---
Service Date Service Date: 06/24/25 Encounter Date of encounter: 06/24/25 Encounter: as below Reasons for Services Signs and symptoms assessed: uti, harley,hypernatremia Reason for speech therapy: swallowing impairment, speech impairment, cognitive impairment and other MD Overseeing Care: Cliff Walsh Homebound: Leaving the home is medically contraindicated at this time without the asist of a device and/or another person due th the listed conditions above and below. Reason homebound: weakness related to hospital stay Homebound supporting statement: for speech /swallow Certification: Based on the above findings, I certify that this patient is confined to the home and needs intermittent usp care, physical therapy and/or speech therapy, or continues to need occupational therapy. The patient is under my care, and I have initiated the establishment of the plan of care. The patient will be followed by a physician who will periodically review the plan of care. Time Spent With Patient Time: Total time managing care of this patient today ____ minutes.
--- NOTE | 2025-06-24 14:00 | MHC.CM.PN ---
IMM 06/23/25 DELIVERED BY PREVIOUS CM, PT MEDICALLY CLEARED FOR DC HOME W/REUMP OF 24HR CARE AND [facility] FOR NURSING, PT WILL HAVE NEW PUREED DIET AND THIN LIQUIDS ON DC W/FACE TO FACE FOR SPEECH, [facility] FOR BLS TRANSPORT AT 5PM PER REQUEST BY HCP/CAREGIVER LUCIANO. CM AWAITING A CALL BACK FROM [facility] TO DETERMINE IF THEY CAN PROVIDE SPEECH.
[2025-06-24 16:17] LABS: Glucose, Whole Blood 116 mg/dL (60-115)
--- NOTE | 2025-06-24 17:23 | MHC.SL.SWA ---
Speech Pathologist Impression: Mild oropharyngeal dysphagia Risk of Aspiration Due to: Recent extubation Dysphasia Diet Status: Recommend CONTINUE with NDD1, THIN Liquids with 1:1 feeding assistance and medications WHOLE in puree Liquid Consistency and Strategies for Safe Swallow: Liquid Intake Recommendation: Thin Liquid Intake Strategies: Small Sips Solid Food Consistency: Dietary Recommendations: Pureed (NDD1) Additional Modifications to Solid Foods: Patient will need 1-1 feed. Patient can orally hold food, monitor for swallow before presenting more food. Alternate liquids and solids. Oral Medication Intake: Whole with Puree Please contact the pharmacy regarding appropriate crushable or liquid drug formulations that are available whenever modified delivery is recommended. Compensatory Strategies and Precautions to be Taken for Safe Swallow: Sitting Upright (90 deg) Liquids from Straw Small Bites and Sips Alternate Liquids/Solids Rate of Ingestion Change Supervision While Eating and Drinking for Safe Swallow: 1:1 Assistance/Supervision Foods to Avoid: Swallowing Recommended Treatments: Compens. Strategy Educat. Recommendation for Speech: Inpatient Speech Therapy Comment: Patient seen for dysphagia treatment. Patient with decreased alertness than previous session. Patient only accepting minimal amount of pudding and apple juice this date. Patient did not have breakfast this date. Patient with no s/sx of penetration/aspiration. Patient tolerating current diet of NDD1, Thin liquids. Acceptance of PO and fluctuating alertness levels barrier to upgrading, not appropriate for upgrade at this time. Recommend CONTINUE with NDD1, THIN liquids. Medications WHOLE in puree. TILE CLASSIFIER communicated diet recommendations to CM as patient with expected discharge this date. Recommend further speech therapy at next level of care. TILE CLASSIFIER to continue to follow while patient remains in inpatient care. Frequency/Duration: Daily M-F Date Range for Service Req: Timeline to reassess: Game Producer Clinican/Clinical Fellow: No Supervisory Statement: I have reviewed and agree with the student/clinical fellow's documentation: N/A Speech Language Pathologist: Renetta Jeffries M.A., CCC-TILE CLASSIFIER
== END 2025-06-24 19:30 | disposition home health service (06) | DRG 871 ==
LOC: HO.ED 14:46 → HO.EDOVER 15:31 → HO.ICU 15:49 → HO.IMC 06-21 13:14
PROVIDERS: Physician Assistant; Registered Nurse Community Health; Admitting Provider Internal Medicine Pulmonary Disease; Emergency Provider Emergency Medicine; PCP Internal Medicine; Visit Provider Internal Medicine
DX: A41.9 Sepsis, unspecified organism (principal); G93.41 Metabolic encephalopathy; J96.21 Acute and chronic respiratory failure with hypoxia; R65.21 Severe sepsis with septic shock; J96.22 Acute and chronic respiratory failure with hypercapnia; I69.354 Hemiplegia and hemiparesis following cerebral infarction affecting left non-dominant side; E87.0 Hyperosmolality and hypernatremia; N17.9 Acute kidney failure, unspecified; G40.909 Epilepsy, unspecified, not intractable, without status epilepticus; I35.0 Nonrheumatic aortic (valve) stenosis; E11.42 Type 2 diabetes mellitus with diabetic polyneuropathy; D50.9 Iron deficiency anemia, unspecified; L89.156 Pressure-induced deep tissue damage of sacral region; J44.9 Chronic obstructive pulmonary disease, unspecified; E05.90 Thyrotoxicosis, unspecified without thyrotoxic crisis or storm; F39 Unspecified mood [affective] disorder; F03.90 Unspecified dementia, unspecified severity, without behavioral disturbance, psychotic disturbance, mood disturbance, and anxiety; Z99.81 Dependence on supplemental oxygen; Z20.822 Contact with and (suspected) exposure to COVID-19; Z79.02 Long term (current) use of antithrombotics/antiplatelets; Z79.899 Other long term (current) drug therapy
CPT/HCPCS: 36415; 70450; 71045; 71250; 74176; 80048; 80053; 80076; 81001; 82040; 82140; 82803; 82947; 83605; 83735; 84100; 84145; 84295; 84439; 84443; 84484; 85025; 85610; 87040; 87086; 87637; 92526; 93005; 94002; 94003; 94640; 99285; J0131; J0168; J0692; J0696; J1644; J1938; J1953; J2470; J2704; J3010; J3373; J3374; J3480; J7120; P9047; Q9967

== ENCOUNTER → 2025-06-17 12:53 | Outpatient (BNV) | payer MEDICARE, MEDICAID, SELFPAY | PROVIDERS: Admitting Provider Internal Medicine Pulmonary Disease; Emergency Provider Emergency Medicine; PCP Internal Medicine; Visit Provider Internal Medicine Cardiovascular Disease | DX: R53.1 Weakness (principal) | CPT/HCPCS: 93010 ==

== ENCOUNTER → 2025-06-17 12:53 | Outpatient (BNV) | payer MEDICARE, MEDICAID, SELFPAY | PROVIDERS: Emergency Provider Emergency Medicine; Visit Provider Radiology Diagnostic Radiology | DX: K59.00 Constipation, unspecified (principal); N28.1 Cyst of kidney, acquired; N32.89 Other specified disorders of bladder; K57.30 Diverticulosis of large intestine without perforation or abscess without bleeding; R91.8 Other nonspecific abnormal finding of lung field; J98.09 Other diseases of bronchus, not elsewhere classified; R46.4 Slowness and poor responsiveness; I70.0 Atherosclerosis of aorta; R91.1 Solitary pulmonary nodule | CPT/HCPCS: 70450; 71045; 71250; 74176 ==

== ENCOUNTER → 2025-06-17 15:22 | Outpatient (BNV) | payer MEDICARE, MEDICAID, SELFPAY | PROVIDERS: Admitting Provider Internal Medicine Pulmonary Disease; Emergency Provider Emergency Medicine; PCP Internal Medicine; Visit Provider Urology | DX: N17.9 Acute kidney failure, unspecified (principal); A41.9 Sepsis, unspecified organism; R65.21 Severe sepsis with septic shock; N30.90 Cystitis, unspecified without hematuria | CPT/HCPCS: 99223 ==

== ENCOUNTER → 2025-06-17 15:22 | Outpatient (BNV) | payer MEDICARE, MEDICAID, SELFPAY | PROVIDERS: Admitting Provider Internal Medicine Pulmonary Disease; Emergency Provider Emergency Medicine; PCP Internal Medicine; Visit Provider Registered Nurse Community Health | DX: A41.9 Sepsis, unspecified organism (principal); R65.21 Severe sepsis with septic shock; N17.9 Acute kidney failure, unspecified; N13.2 Hydronephrosis with renal and ureteral calculous obstruction; J96.02 Acute respiratory failure with hypercapnia | CPT/HCPCS: 31500; 36556 ==

== ENCOUNTER → 2025-06-17 15:22 | Outpatient (BNV) | payer MEDICARE, MEDICAID, SELFPAY | PROVIDERS: Admitting Provider Internal Medicine Pulmonary Disease; Emergency Provider Emergency Medicine; PCP Internal Medicine; Visit Provider Internal Medicine | DX: I50.9 Heart failure, unspecified (principal); G93.41 Metabolic encephalopathy; E87.0 Hyperosmolality and hypernatremia; D50.9 Iron deficiency anemia, unspecified | CPT/HCPCS: 99232; 99239; 99499; G0180 ==

== ENCOUNTER → 2025-06-17 15:22 | Outpatient (BNV) | payer MEDICARE, MEDICAID, SELFPAY | PROVIDERS: Admitting Provider Internal Medicine Pulmonary Disease; Emergency Provider Emergency Medicine; PCP Internal Medicine; Visit Provider Internal Medicine Pulmonary Disease | DX: E11.9 Type 2 diabetes mellitus without complications (principal); N17.9 Acute kidney failure, unspecified; N30.90 Cystitis, unspecified without hematuria; G93.40 Encephalopathy, unspecified; J96.21 Acute and chronic respiratory failure with hypoxia; J96.22 Acute and chronic respiratory failure with hypercapnia | CPT/HCPCS: 99291 ==

== ENCOUNTER 2025-06-25 21:07 | Inpatient (IN) | payer MEDICARE, MEDICAID, SELFPAY ==
--- NOTE | ~2025-06-25 | MR_ITS ---
CLINICAL HISTORY: Stroke r o MR Brain without gadolinium Comparison: CT/DE/SR - CT HEAD WITHOUT IV CONTRAST - 06/17/25 14:52 EST MR/SR - MR HEAD/BRAIN WO CON - 06/14/24 10:39 EST Findings: There is prominence of the ventricular system and subarachnoid spaces consistent with atrophy. Ventricles are normal in position with no midline shift or herniation. No hydrocephalus. No restricted diffusion. No intra-axial or extra-axial hemorrhage. Nonspecific bilateral supratentorial white matter hyperintensities most suggestive of chronic small-vessel ischemic changes. Mild pontine hyperintensities suggestive of chronic ischemic changes. Stable nonacute right basal ganglia infarct. No focal mass lesion or mass effect identified on this unenhanced study. Midline structures are grossly normal. Flow voids are maintained within the major vessels of the base of the brain. Orbital contents are unremarkable. Fluid in bilateral mastoid air cells. Mild mucosal thickening in left frontal sinus. No focal bone lesion. Hyperostosis frontalis interna. IMPRESSION: 1. No acute findings. Specifically no acute infarct/acute ischemia. 2. Atrophy and stable white matter chronic ischemic changes in nonacute right basal ganglia infarct. 3. Bilateral mastoid air cell fluid. This document has been electronically signed by: Ashley Sims MD on 06/30/2025 19:03:50
--- NOTE | ~2025-06-25 | XR_ITS ---
CLINICAL HISTORY: ?pulmonary edema vs aspiration 1 view chest x-ray. Comparison: Same-day CT chest Findings: Lungs reveal hazy opacity overlying the right midlung and right lung base compatible with atelectasis/consolidation and effusion seen on same day CT. Right upper lung nodule is better delineated on same day CT exam. Left lung is grossly clear. Cardiac and mediastinal contours appear grossly stable. Bones unremarkable. Impression: 1. Similar-appearing right lung opacities related to pleural effusion, consolidation or atelectasis, and poorly defined right upper lung nodule. This document has been electronically signed by: Baljeet Blackburn MD on 06/26/2025 20:20:45
--- NOTE | ~2025-06-25 | XR_ITS ---
CLINICAL HISTORY: shortness of breath, right sided pain 1 view chest x-ray. Comparison: CR - XR CHEST 1V - 06/17/25 21:17 EST Findings: This examination is mildly limited by structures overlying the patient. There is minimal blunting of the right costophrenic angle with [id number] ill-defined right basilar opacities. Minimal left basilar opacities are present. Central pulmonary venous congestion. No pneumothorax or significant left pleural effusion identified. The previously demonstrated right upper lobe nodules on comparison chest CT examination dated 06/17/2025 are not well visualized on this examination. There may be a vague nodule over the medial aspect of the right upper lobe. The patient is slightly rotated, which likely limits evaluation. Heart size normal. Median sternotomy wires are in place. Impression: 1. Central pulmonary venous congestion with [id number] right basilar atelectasis versus infiltrates and a possible minimal right pleural effusion. 2. Minimal left basilar opacities which may represent scattered atelectasis, scarring, or infiltrates. 3. Poor visualization of the previously demonstrated right upper lobe pulmonary nodules. A vague nodule may be present over the medial aspect of the right lung base, partially obscured by overlapping bones. This document has been electronically signed by: Russel Pope MD on 06/25/2025 23:34:55
--- NOTE | ~2025-06-25 | CT_ITS ---
CLINICAL HISTORY: Shortness of breath, elevated D-dimer CT angiography chest using contrast. 3-D postprocessing Comparison: CT/REG/AR/SR - CT CHEST WITHOUT IV CONTRAST - 06/17/25 14:52 EST Findings: Mild motion artifact present. There is also mild artifact related to structures external to the patient. No pulmonary embolism. No thoracic aorta aneurysm. The thyroid gland is heterogeneous in attenuation with bilateral thyroid nodules. Mildly limited evaluation of the mediastinum related to artifact and edema. There are vague areas of increased attenuation in the precarinal and subcarinal regions, possibly related to lymphadenopathy. Heart size within normal limits. Coronary artery calcifications and/or coronary artery stents are visualized. Small right pleural effusion present with mild underlying compressive right lung atelectasis. Minimal left pleural effusion present with minimal underlying compressive left lower lobe atelectasis. No pneumothorax. 2.0 x 1.8 cm right upper lobe nodule on image number 18 of series 8 1.9 x 1.4 cm right upper lobe nodule on image number 11 of series 8. Stable subcentimeter nodule at the lingula. Motion limited evaluation of the right lower lobe airways. There appears to be subtle nodular thickening of the bilateral adrenal glands. Colonic diverticulosis present. No acute fractures. Median sternotomy wires are in place. Impression: 1. Mildly limited examination due to artifact as described above, mildly limiting evaluation of segmental and subsegmental pulmonary arterial branches at the lower lungs.. No convincing CT evidence for pulmonary embolism. 2. Small right and minimal left pleural effusions present with underlying compressive bilateral atelectasis, more prominent on the right. There is limited evaluation of the interstitium on this examination due to motion. Recommend clinical correlation for possible pulmonary edema. 3. Right upper lobe pulmonary nodules and subcentimeter lingular nodule redemonstrated with probable mediastinal lymphadenopathy. Malignancy is not excluded. 4. Heterogeneity of the thyroid gland redemonstrated with bilateral thyroid nodules. This document has been electronically signed by: Russel Pope MD on 06/26/2025 02:21:14
[2025-06-25 21:23] VITALS: BP 122/71; BP 130/53; PULSE 63; PULSE 69; RESP 17; O2SAT 92; O2SAT 98; BMI 32.0
--- NOTE | 2025-06-25 21:32 | ED.GENADULT ---
HPI - General Adult General Chief complaint: Dyspnea Stated complaint: Sob x 2hrs, lethargic Time Seen by Provider: 06/25/25 21:32 History of Present Illness ED Provider: Leobardo MACKAY narrative: The patient is a chronically ill 79-year-old woman. She was admitted to the hospital here 8 days ago on June 17 with a an acute encephalopathy and shortness of breath. She had presented to the emergency room on June 17 with altered mental status and was thought to possibly be septic and was admitted to the intensive care unit. She has been intubated because of respiratory failure and was extubated on June 20. The patient was kept on the hospital floor until yesterday June 24 when she was discharged to the [facility]. She was discharged on cefuroxime although all of her cultures has been negative. I was ultimately able to speak with the patient's healthcare proxy, Mariely, who is also a CONCRETE PANEL INSTALLER for the patient. She is not a family member. I believe the patient does not have any family members. I believe the patient has been considered a full code. According to Mariely the patient seemed well when she returned home to [facility] yesterday evening from the hospital. The patient lives chronically at [facility] in the assisted living portion of the facility. The patient is non-ambulatory at baseline. She requires a Trevor lift. According to social the patient seemed reasonably well yesterday evening and this morning also seemed reasonably well. This evening Mariely says that the patient was talking less than usual and seemed to have a watery cough. Oxygen saturations were somewhat low and the patient admitted to feeling somewhat short of breath. The patient had no pain. Ultimately the facility decided to call an ambulance and the patient was brought here. The patient is normally on 2 L of oxygen at home nasal cannula. Related Data Home Medications ?Medication ?Instructions ?Recorded ?Confirmed atorvastatin 80 mg tablet 80 mg PO BEDTIME 08/02/23 06/17/25 cholecalciferol (vitamin D3) 25 25 mcg PO DAILY 08/02/23 06/17/25 mcg (1,000 unit) tablet clopidogrel 75 mg tablet 75 mg PO DAILY 08/02/23 06/17/25 cyanocobalamin (vitamin B-12) 500 500 mcg PO DAILY 08/02/23 06/17/25 mcg tablet fluoxetine 20 mg capsule 20 mg PO DAILY 08/02/23 06/17/25 folic acid 400 mcg tablet 0.4 mg PO DAILY 08/02/23 06/17/25 metoprolol succinate 25 mg 25 mg PO DAILY 08/02/23 06/17/25 tablet,extended release 24 hr oxybutynin chloride 5 mg 5 mg PO DAILY 08/02/23 06/17/25 tablet,extended release 24 hr pregabalin 150 mg capsule 150 mg PO TID 08/02/23 06/17/25 trazodone 100 mg tablet 100 mg PO BEDTIME 08/02/23 06/17/25 zinc oxide 20 % topical ointment 1 appl topical DAILY PRN Wound 08/02/23 06/17/25 Healing levetiracetam 250 mg tablet 250 mg PO BID 09/10/23 06/17/25 (Keppra) albuterol sulfate 90 mcg/actuation 2 puff inhalation Q6H PRN wheezing 04/18/24 06/17/25 aerosol inhaler (Ventolin HFA) methimazole 5 mg tablet 2.5 mg PO MOWEFR 04/18/24 06/17/25 docusate sodium 100 mg capsule 100 mg PO BID 11/07/24 06/17/25 ferrous sulfate 324 mg (65 mg 324 mg PO DAILY 06/17/25 06/17/25 iron) tablet,delayed release Previous Rx's ?Medication ?Instructions ?Recorded cefuroxime axetil 250 mg tablet 250 mg PO Q12H #12 tabs 06/24/25 glipizide 5 mg tablet, extended 2.5 mg (1/2 x 5 mg) PO DAILY #1 tab 06/24/25 release 24 hr Allergies Allergy/AdvReac Type Severity Reaction Status Date / Time Penicillins Allergy Unknown Verified 06/25/25 21:34 piroxicam Allergy Unknown Verified 06/25/25 21:34 shrimp Allergy Hives Verified 06/25/25 21:34 Sulfa (Sulfonamide Allergy Unknown Verified 06/25/25 21:34 Antibiotics) Review of Systems Review of Systems: Yes all other systems are reviewed and are negative PMF Past Medical History Medical History Congestive heart failure Non-insulin dependent type 2 diabetes mellitus Aortic stenosis Seizure Dementia Seizure COPD (chronic obstructive pulmonary disease) Peripheral neuropathy HLD (hyperlipidemia) CVA (cerebral vascular accident) Heart failure, unspecified Social History Social History Household Members: Unknown / Unable to assess Housing: Unknown / Unable to assess Housing Other:: fdc Do you presently have visiting nurse or other home services: Yes Alcohol intake: former Comment: non ambulatory pt Patient Tobacco Use Status: Never used Tobacco Second Hand Smoke Exposure: No Advance Directives: Yes Advance Directives on File: Yes Advance Directives Date on File: 09/15/23 Do you have a plan to hurt others: No Plan service: No Physical Exam ED Vital Signs: Vital Signs - 24 hr 06/25/25 21:23 06/25/25 21:48 06/25/25 22:02 Temperature 99.7 F Pulse Rate 69 71 70 Respiratory Rate 17 18 20 Blood Pressure 130/53 L 103/43 L Pulse Oximetry 92 95 Oxygen Delivery Method Nasal Cannula Nasal Cannula Oxygen Flow Rate 2 06/26/25 00:27 06/26/25 00:29 06/26/25 02:24 Temperature 98.8 F 97.6 F Pulse Rate 85 86 89 Respiratory Rate 12 15 22 H Blood Pressure 115/50 L 141/68 H Pulse Oximetry 99 95 Oxygen Delivery Method Nasal Cannula Nasal Cannula Oxygen Flow Rate 2 2 BMI result Body Mass Index 32.0 Const Other: The patient is a very chronically ill looking woman who looks as if she may be somewhat short of breath. She looks as if she is quite chronically deconditioned and debilitated with the an obvious right facial droop. HENMT Other: There is right-sided facial weakness compared to the left. This is a chronic finding. Mucous membranes are moist. Eyes Other: Pupils are round equal, conjunctivae are clear, extraocular movements are intact Neck Other: No obvious JVD, no neck stiffness Resp Other: Possibly some very mild increased work of breathing but this is a subtle finding. No david respiratory distress. There were some wheezes bilaterally. Cardio Rate: regular rate Rhythm: regular rhythm Heart sounds: S1 normal heart sound present and S2 normal heart sound present GI Other: The abdomen is soft and nontender Skin Other: Skin is pale and dry, no lesions Neuro Other: The patient was awake and seemed able to answer simple questions but did not seem capable of answering any more complex questions. There is some right-sided facial droop which I believe is chronic. She does not seem to have any significant asymmetry of the strength of her arms. Both arms seems somewhat weak but she can move them both. The legs seem quite weak. The patient has a history of a stroke and I believe she is weaker than she might be on a good day but I doubt any symptoms today represent acute neurological findings. Extrem Other: No sick difficult lower extremity edema or tenderness. Medications Administered Discontinued Medications Generic Name Dose Route Start Last Admin Trade Name Freq PRN Reason Stop Dose Admin Albuterol Sulfate 5 mg/ 0 mg 06/25/25 21:41 06/25/25 21:50 Albuterol/Ipratropium 3 ml INHALE 06/25/25 21:42 7.5 each ONCE ONE Administration Magnesium Sulfate 2 gm in 50 mls @ 150 mls/hr 06/26/25 00:03 06/26/25 00:50 Magnesium Sulfate/H2o IV 06/26/25 00:22 Infused ONCE ONE Infusion Cefepime HCl 2 gm in 50 mls @ 100 mls/hr 06/26/25 02:17 06/26/25 03:07 Maxipime IV 06/26/25 02:46 Infused ONCE ONE Infusion Metronidazole 500 mg in 100 mls @ 100 mls/hr 06/26/25 02:17 06/26/25 04:12 Flagyl IV 06/26/25 03:16 Infused ONCE ONE Infusion Sodium Chloride 1,000 mls @ 999 mls/hr 06/26/25 02:30 06/26/25 02:37 Ns IV 06/26/25 03:30 Infused .Q1H1M MARC Infusion Iohexol 65 ml 06/26/25 01:48 06/26/25 01:49 Iohexol 350 Mg/Ml 100 Ml Infus..Btl IV 06/26/25 01:49 65 ml ONCE ONE Administration Methylprednisolone Sodium Succinate 80 mg 06/26/25 00:03 06/26/25 00:26 Methylprednisolone Sod Succ 125 Mg/2 Ml Vial IVPUSH 06/26/25 00:04 80 mg ONCE ONE Administration Medical Decision Making Medical Decision Making MDM Narrative: The patient is a 79-year-old woman with a history of multiple chronic medical problems who was quite disabled at baseline and who lives at a local assisted living facility. She requires 24 hour care. She is nonambulatory. She was just discharged from the hospital the day prior to arrival after having been hospitalized for about a week. On that occasion she had developed respiratory failure and hypotension and was treated in the intensive care unit. She was intubated for 3 days. She was briefly on pressors. All of the cultures from her previous hospitalization were negative. She was discharged on cefuroxime. She returns approximately 24 hours after discharge with a complaint of shortness of breath and cough. There seemed to be some wheezing. An initial venous blood gas suggested some degree of a respiratory acidosis with a pH of 7.27 and a pCO2 of 73. Other testing was less remarkable. Her CBC showed a white count of 6.9, hemoglobin 10.0, platelet count 218, unremarkable differential on the white count Her chemistries showed a CRP of 2.13, a proBNP of 2614, a normal troponin of 11.8. The patient is not on anticoagulation. Although her chest x-ray was not obviously clear I nevertheless ran a D-dimer which came back elevated. She then had a CT pulmonary angiogram. The CT pulmonary angiogram showed no sign of pulmonary embolism. It was equivocal on the question of possible pulmonary edema versus infectious process. The patient has lab work is not very suggestive of an acute infectious process. She does not have an elevated white count or a left shift. Her C-reactive protein is not markedly elevated. She had no fever on rectal temperature. The patient was treated with a bronchodilator updraft treatments, methylprednisolone, at magnesium. She was given cefepime and metronidazole in case there was any aspiration pneumonitis. Ultimately we obtained an ABG after bronchodilator treatments. Her pH improved as did her pCO2. At this point I do not think there is a question of any need for positive pressure ventilation. The patient will be admitted to the hospitalist service for further care. Lab Data 06/25/25 21:53 06/25/25 23:11 Labs: Lab Results 06/25/25 06/25/25 06/25/25 Range/Units 21:53 22:01 23:11 WBC 6.9 (4.8-10.8) X10*3/uL RBC 3.65 L (4.20-5.50) X10*6/uL Hgb 10.0 L D (12.0-16.0) g/dl Hct 32.3 L (37.0-47.0) % MCV 88.5 (80.0-98.0) fL MCH 27.4 (27.0-33.0) pg MCHC 31.0 (31.0-35.0) g/dl RDW 16.3 H (11.0-16.0) % Plt Count 218 D (160-400) X10*3/uL MPV 11.3 (9.4-12.3) fL Immature Gran % (Auto) 0.7 H (0.0-0.4) % Neut % (Auto) 66.3 (45-73) % Lymph % (Auto) 20.6 (20-40) % Ransom % (Auto) 9.8 (2-11) % Eos % (Auto) 2.5 (0-4) % Baso % (Auto) 0.1 (0-2) % Lymph # (Auto) 1.4 (1.2-4.9) X10*3/uL Ransom # (Auto) 0.7 (0.1-1.2) X10*3/uL Eos # (Auto) 0.2 (0.0-0.4) X10*3/uL Baso # (Auto) 0.0 (0.0-0.2) X10*3/uL Abs Immat Gran (auto) 0.05 H (0.00-0.03) X10*3/uL Absolute Neuts (auto) 4.6 (2.0-8.3) x10*3/uL Absolute Nucleated RBC 0.000 (0.0-0.012) X10*3/uL Nucleated RBC % (auto) 0.0 (0.0-0.2) /100WBC PT 11.6 D (11.2-13.5) SEC INR 0.9 (0.9-1.1) D-Dimer High Sensitivty 523 NG/ML O2 Saturation % ABG pH at Pt Temp (7.35-7.45) ABG pCO2 at Pt Temp (32-45) mmHg ABG pO2 at Pt Temp (83-108) mmHg ABG HCO3 (22-26) mmol/L ABG Base Excess (Actual) mmol/L VBG pH 7.27 L (7.32-7.43) VBG pCO2 73 mmHg VBG pO2 35 mmHg VBG HCO3 34 H (22-26) mmol/L VBG O2 Saturation 46.0 % VBG Base Excess 5.7 mmol/L Sodium 140 (135-145) mmol/L Potassium 5.1 D (3.3-5.1) mmol/L Chloride 105 (96-108) mmol/L Carbon Dioxide 31 H (22-29) mmol/L Anion Gap 9 L (12-20) BUN 26 H (9-16) mg/dL Creatinine 1.33 (0.5-1.4) mg/dL Estim Creat Clear Calc 30.9 Estimated GFR 38 Random Glucose 118 H (60-115) mg/dL Lactic Acid 1.0 (0.5-2.0) mmol/L Calcium 9.0 (8.4-10.2) mg/dL Magnesium 2.0 (1.6-2.6) mg/dL Total Bilirubin 0.2 (0.0-1.0) mg/dL Direct Bilirubin < 0.2 (0.0-0.5) mg/dL AST 21 (5-31) U/L ALT 11 (0-31) U/L Alkaline Phosphatase 58 (39-117) U/L Troponin I High Sens 11.8 D (<3.5-17.0) ng/L C-Reactive Protein 2.13 H (< or = 0.50) mg/dL NT-Pro-B Natriuret Pep 2614.4 H (<300) pg/mL Total Protein 6.8 (6.5-8.0) g/dL Albumin 3.3 L (3.5-5.0) g/dL Lipase 20 (8-78) U/L Influenza Type A (PCR) NEGATIVE (Negative) Influenza Type B (PCR) NEGATIVE (Negative) RSV RNA Qual (PCR) NEGATIVE (Negative) SARS-CoV-2 RNA (RT-PCR) NEGATIVE (Negative) 06/25/25 06/26/25 Range/Units 23:18 03:26 WBC (4.8-10.8) X10*3/uL RBC (4.20-5.50) X10*6/uL Hgb (12.0-16.0) g/dl Hct (37.0-47.0) % MCV (80.0-98.0) fL MCH (27.0-33.0) pg MCHC (31.0-35.0) g/dl RDW (11.0-16.0) % Plt Count (160-400) X10*3/uL MPV (9.4-12.3) fL Immature Gran % (Auto) (0.0-0.4) % Neut % (Auto) (45-73) % Lymph % (Auto) (20-40) % Ransom % (Auto) (2-11) % Eos % (Auto) (0-4) % Baso % (Auto) (0-2) % Lymph # (Auto) (1.2-4.9) X10*3/uL Ransom # (Auto) (0.1-1.2) X10*3/uL Eos # (Auto) (0.0-0.4) X10*3/uL Baso # (Auto) (0.0-0.2) X10*3/uL Abs Immat Gran (auto) (0.00-0.03) X10*3/uL Absolute Neuts (auto) (2.0-8.3) x10*3/uL Absolute Nucleated RBC (0.0-0.012) X10*3/uL Nucleated RBC % (auto) (0.0-0.2) /100WBC PT (11.2-13.5) SEC INR (0.9-1.1) D-Dimer High Sensitivty NG/ML O2 Saturation 99.0 % ABG pH at Pt Temp 7.35 (7.35-7.45) ABG pCO2 at Pt Temp 56 H (32-45) mmHg ABG pO2 at Pt Temp 125 H (83-108) mmHg ABG HCO3 32 H (22-26) mmol/L ABG Base Excess (Actual) 5.4 mmol/L VBG pH 7.30 L (7.32-7.43) VBG pCO2 66 mmHg VBG pO2 57 mmHg VBG HCO3 32 H (22-26) mmol/L VBG O2 Saturation 84.0 % VBG Base Excess 4.9 mmol/L Sodium (135-145) mmol/L Potassium (3.3-5.1) mmol/L Chloride (96-108) mmol/L Carbon Dioxide (22-29) mmol/L Anion Gap (12-20) BUN (9-16) mg/dL Creatinine (0.5-1.4) mg/dL Estim Creat Clear Calc Estimated GFR Random Glucose (60-115) mg/dL Lactic Acid (0.5-2.0) mmol/L Calcium (8.4-10.2) mg/dL Magnesium (1.6-2.6) mg/dL Total Bilirubin (0.0-1.0) mg/dL Direct Bilirubin (0.0-0.5) mg/dL AST (5-31) U/L ALT (0-31) U/L Alkaline Phosphatase (39-117) U/L Troponin I High Sens (<3.5-17.0) ng/L C-Reactive Protein (< or = 0.50) mg/dL NT-Pro-B Natriuret Pep (<300) pg/mL Total Protein (6.5-8.0) g/dL Albumin (3.5-5.0) g/dL Lipase (8-78) U/L Influenza Type A (PCR) (Negative) Influenza Type B (PCR) (Negative) RSV RNA Qual (PCR) (Negative) SARS-CoV-2 RNA (RT-PCR) (Negative) Independent Interpretation I performed an independent interpretation of an: EKG Interpretation: EKG at 2211 shows normal sinus rhythm at 77 beats per minute. No significant change from previous. No definite acute ischemic changes. Discharge Plan Discharge Clinical Impression: Shortness of breath, Acute exacerbation of chronic obstructive pulmonary disease Patient Disposition: Admitted As Inpatient
--- NOTE | 2025-06-25 21:37 | ECG_ITS ---
Test Reason : DYSPNEA Blood Pressure : */* mmHG Vent. Rate : 77 BPM Atrial Rate : 77 BPM P-R Int : 148 ms QRS Dur : 70 ms QT Int : 350 ms P-R-T Axes : 66 10 16 degrees QTcB Int : 396 ms Normal sinus rhythm Normal ECG When compared with ECG of 17-Jun-2025 13:01, No significant change was found Referred By: Lalo Booth Electronically Signed By: MERLYN SHEN
[2025-06-25 21:48] VITALS: PULSE 71; RESP 18; O2SAT 94
[2025-06-25] MEDS: Albuterol Sulfate 5 MG, Albuterol/Iprat 2.5/0.5MG 3 ML 3 ML INHALE (21:50)
[2025-06-25 22:00] LABS: MANUAL DIFF FLAG NO
[2025-06-25 22:02] VITALS: BP 103/43; PULSE 70; RESP 20; TEMP 37.6; O2SAT 95
[2025-06-25 22:05] LABS: VBG HCO3 34 mmol/L (22-26); VBG O2 % Saturation 46.0 %
[2025-06-25 22:05] LABS: Venous Blood Gas Refer to POC result
--- OUTSIDE RECORDS SUMMARY | 2025-06-25 22:16 | XMS_ITS | Encounter Summary ---
Author Organization [facility] Address [address] [place] [address] Phone Care Team Providers Care Range Management Specialist Name Role Phone Julia Callahan DO Primary Care Provider Pcp, Not Required Primary Care Provider Unavaila ble Mariajose Smallwood [facility] Primary Care Provider Jose Becerra MD Primary Care Provider [phone] Mariajose Smallwood [facility] Primary Care Provider Dyan Matias tunneller Provider [phone] Julia Callahan DO Unavailable [phone] Mariajose Smallwood [facility] Unavailable [phone] Pcp, Not Required Unavailable Unavailable Jose Becerra MD Unavailable Letitia Odom MD Unavailable [phone] Chinyere Reilly MD Unavailable [phone] Marjorie Pappas [employer] Unavailable [phone] Cliff Walsh MD Primary Care Provider [phone] Cliff Walsh MD Unavailable Chinyere Barajas RN Unavailable Encounter Details Date Type Department Care Team (Late st Contact Info) Description 11/17/2017 Procedure Pass [facility], [address] [address] Social History Tobacco Use Types Packs/Day Years Used Date Smoking Tobacco: Never Smokeless Tobacco: Never Alcohol Use Standard Drinks/Week Comments No 0 (1 standard drink = 0.6 oz pur e alcohol) Comments No Sex and Gender Information Value Date Recorded Sex Assigned at Female 11/16/2017 5:42 PM EDT Legal Sex Female 10:08 PM EDT Gender Identity Female 11/16/2017 5:42 PM EDT Sexual Orientation Straight 11/16/2017 5: 42 PM EDT documented as of this encounter Last Filed Vital Signs Vital Sign Reading Time Taken Comments Blood Pressure - - Pulse - - Temperature - - Respiratory Rate - - Oxygen Saturation - - Inhaled Oxygen Concentration - - Weight 83 kg (183 lb) 11/17/2017 10:17 AM EDT Height 152.4 cm (5') 11/17/2017 10:17 AM EDT Body Mass Index 35.74 11/17/2017 10:17 AM EDT documented in this encounter Plan of Treatment Upcoming Encounters Date Type Department Care Team (Late st Contact Info) Description 10/14/2024 Procedure Pass [facility] [place] [address] 07/01/2025 2:00 PM EST Office Visit [facility] [address] [place] [address] [place] [address] Cliff Walsh MD [address] [place] [id number] [email or web address] 10/01/2025 11:20 AM EDT Office Visit [facility] [address] [place] [address] [place] [address] Wen Parikh MD [address] [place] [address] [address] [place] [address] 10/07/2025 12:45 PM EDT Appointment [facility] [place] [address] Eliseo Jacobs, DO [address] [facility] [place] [address] 10/21/2025 12:30 PM EDT Office Visit [facility] [address] [place] [address] Dr [address] Floor, [address] [place] [address] Eliseo Jacobs, DO [address] [place] [address] [address] [place] [address] documented as of this encounter Visit Diagnoses Not on filedocumented in this encounter Additional Health Concerns Infection Onset Date Last Indicated Resolved Time CoV-Risk Comment:Negative 04/2604/23/2020 04/26/2020 04/28/2020 2:27 PM EDT CoV-Risk Comment:Per Ambulatory Triage Form 08/05/2021 08/05/202108/15 1:23 AM EST CoV-Risk Comment:Per note documentation 11/26/2021 11/26/2021 8:25 PM EDT 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 11/27/2021 11/27/2023 1:22 AM EDT documented as of this encounter Care Teams Range Management Specialist Relationship Specialty Start Date End Date Julia Callahan DO [address] [place] [address] PCP - General 05/11/17 03/22/18 Pcp, Not Required [address] [place] [address] PCP - General 03/23/18 08/06/18 Mariajose Smallwood FNP [address] [place] [address] [email or web address] PCP - General Family Medicine 08/07/18 08/09/18 Jose Becerra MD [address] [place] [address] [address] [place] [address] [email or web address] PCP - General Family Medicine 08/10/18 12/03/18 Mariajose Smallwood FNP [address] [place] [address] 7 [place] [address] [email or web address] PCP - General Family Medicine 12/04/18 01/09/19 Dyan Matias RN [address] [place] [id number] [email or web address] PCP - General Internal Medicine 01/10/19 09/13/20 Cliff Walsh MD [address] [place] [address], [address] [place] [address] [email or web address] PCP - General Internal Medicine 09/14/20 Julia Callahan DO [address] [place] [address] 03/23/18 08/06/18 Mariajose Smallwood FNP [address] [place] [address] 7 [place] [address] [email or web address] Family Medicine 08/10/18 12/03/18 Pcp, Not Required [address] [place] [id number] 08/07/18 08/09/18 Jose Becerra MD [address] [place] [address] 7 [place] [address] Family Medicine 12/04/18 Letitia Odom MD [address] [place] [phone] Insurance Assigned Provider 10/30/19 10/31/20 Chinyere Reilly MD [address] [place] [id number] Consulting Provider Geriatric Medicine 03/20/20 03/26/22 Marjorie Pappas [facility] [place] [address] Nurse Practitioner Oncology 09/11/20 Cliff Walsh MD [address] [place] [phone] Insurance Assigned Provider 10/28/23 Chinyere Barajas, MERT [address] [place] [id number] [facility] Intern 09/27/21 11/07/21 documented as of this encounter Additional Source Comments The information contained in this document represents components of the legal health record. It is not the complete legal health record.[facility]
--- OUTSIDE RECORDS SUMMARY | 2025-06-25 22:16 | XMS_ITS | Encounter Summary ---
Author Organization Formerly [facility] Address [address] [place] [address] Phone Care Team Providers Care General Machine Operator Name Role Phone Julia Callahan DO Primary Care Provider Pcp, Not Required Primary Care Provider Unavaila ble Mariajose Smallwood [facility] Primary Care Provider Jose Becerra MD Primary Care Provider [phone] Mariajose Smallwood [facility] Primary Care Provider Dyan Matias car mover Provider [phone] Julia Callahan DO Unavailable [phone] Mariajose Smallwood [facility] Unavailable [phone] Pcp, Not Required Unavailable Unavailable Jose Becerra MD Unavailable Letitia Odom MD Unavailable [phone] Chinyere Reilly MD Unavailable [phone] Marjorie Pappas ALLERGIST Unavailable [phone] Cliff Walsh MD Primary Care Provider [phone] Cliff Walsh MD Unavailable Chinyere Barajas RN Unavailable [phone] Encounter Details Date Type Department Care Team (Late Contact Info) Description 12/29/2017 Transcribe Orders [facility] Specimen Processing [address] [place] [address] Jose Becerra MD 38 [facility] [place] [address] Anemia, unspecified type (Primary Dx) Social History Tobacco Use Types Packs/Day Years [...] PM EDT documented as of this encounter Plan of Treatment Upcoming Encounters Date Type Department Care Team (Late Contact Info) Description 10/14/2024 Procedure Pass Echo Lab [address] [place] [address] 07/01/2025 2:00 PM EST Office Visit [facility] [address] [place] [address] [place] [address] Cliff Walsh MD [address] [place] [address] 10/01/2025 11:20 AM EDT Office Visit [facility] [address] [place] [address] [place] [address] Wen Parikh MD [address] [place] [address] 10/07/2025 12:45 PM EDT Appointment Echo Lab [place] [address] [address] Eliseo Jacobs, DO 22 [facility] [address] [place] [address] 10/21/2025 12:30 PM EDT Office Visit [facility] [address], [address] [place] [address] Eliseo Jacobs, DO 22 [facility] [address] [place] [address] documented as of this encounter Results * (ABNORMAL) Basic metabolic panel (12/29/2017 4:20 AM EDT) SODIUM 144 133 - 146 mmol/L [facility] CHLORIDE 103 96 - 108 mmol/L [facility] POTASSIUM 4.4 3.3 - 5.1 mmol/L [facility] CO2 28 21 - 35 mmol/L [facility] BUN 13 6 - 19 mg/dL [facility] CREATININE 0.90 0.5 - 1.5 mg/dL [facility] GLUCOSE 116(H) 70 - 99 mg/dL [facility] CALCIUM 8.9 8.4 - 10.3 mg/dL [facility] EGFR 64 >59 mL/min/1.7 3m2 [facility] Comment:If patient is black, multiply result by 1.159. The eGFR calculation has changed from the MDRD equation to the CKD-EPI equation as of September 26, 2017. ANION GAP 17 10 - 20 mmol/L [facility] Blood 12/29/2017 4:20 AM EDT 12/29/2017 7:37 AM EDT us Jose Becerra MD LAB BLOOD BKR ORDERABLES Final R esult [facility] [address] [place] [address] * (ABNORMAL) CBC and differential (12/29/2017 4:20 AM EDT) WBC 6.05 3.40 - 11.20 K/uL [facility] RBC 4.18 3.80 - 4.80 M/uL [facility] HGB 11.1(L) 12.0 - 15.0 g/dL [facility] HCT 34.4(L) 36.0 - 46.0 % [facility] PLT 226 130 - 400 K/uL [facility] MCV 82.3 79.0 - 98.0 fL [facility] MCH 26.6(L) 27.0 - 34.8 pg [facility] MCHC 32.3 31.5 - 36.0 g/dL [facility] RDW 15.1(H) 10.8 - 14.6 % [facility] MPV 10.4 9.4 - 12.4 fl [facility] NRBC 0.00 /100 WBCs [facility] ABSOLUTE NRBC 0.00 K/uL [facility] DIFF METHOD Auto [facility] NEUTS 58.0 45.30 - 77.70 % [facility] LYMPHS 25.8 12.30 - 39.70 % [facility] MONOS 11.6 4.10 - 12.80 % [facility] EOS 4.0 0 - 7.2 % [facility] BASOS 0.3 0 - 2.80 % [facility] Granulocytes, immature (%) 0.3 0.0 - 0.9 % [facility] ABSOLUTE NEUTS 3.51 1.40 - 7.70 K/uL [facility] ABSOLUTE LYMPHS 1.56 0.60 - 3.20 K/uL [facility] ABSOLUTE MONOS 0.70(H) 0.11 - 0.59 K/uL [facility] ABSOLUTE EOS 0.24 0.01 - 0.50 K/uL [facility] ABSOLUTE BASOS 0.02 0.00 - 0.08 K/uL [facility] Granulocytes, immature 0.02 0.00 - 0.05 K/uL [facility] Blood 12/29/2017 4:20 AM EDT 12/29/2017 7:37 AM EDT us Jose Becerra MD LAB BLOOD BKR ORDERABLES Final R esult [facility] [address] [place] [address] documented in this encounter Visit Diagnoses Diagnosis Anemia, unspecified type- Primary documented in this encounter Additional Health Concerns Infection Onset Date Last Indicated Resolved Time CoV-Risk Comment:Negative 04/2604/23/2020 04/26/2020 04/28/2020 2:27 PM EDT CoV-Risk Comment:Per Ambulatory Triage Form 08/05/2021 08/05/202108/15 1:23 AM EST CoV-Risk Comment:Per note documentation 11/26/2021 11/26/2021 8:25 PM EDT 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 11/27/2021 11/27/2023 1:22 AM EDT documented as of this encounter Care Teams General Machine Operator Relationship Specialty Start Date End Date Julia Callahan DO [address] [place] [address] PCP - General 05/11/17 03/22/18 Pcp, Not Required [address] [place] [address] PCP - General 03/23/18 08/06/18 Mariajose Smallwood FNP [address] [place] [address] 7 [place] [address] PCP - General Family Medicine 08/07/18 08/09/18 Jose Becerra MD [address] [place] [address] 7 [place] [address] PCP - General Family Medicine 08/10/18 12/03/18 Mariajose Smallwood FNP [address] [place] [address] 7 [place] [address] PCP - General Family Medicine 12/04/18 01/09/19 Dyan Matias RN [address] [place] [address] PCP - General Internal Medicine 01/10/19 09/13/20 Cliff Walsh MD [address] [place] [address] PCP - General Internal Medicine 09/14/20 Julia Callahan DO [address] [place] [address] 03/23/18 08/06/18 Mariajose Smallwood FNP [address] [place] [address] 7 [place] [address] [email or web address] Family Medicine 08/10/18 12/03/18 Pcp, Not Required [address] [place] [address] 08/07/18 08/09/18 Jose Becerra MD [address] [place] [address] [email or web address] Family Medicine 12/04/18 Letitia Odom MD [address] [place] [address] [email or web address] Insurance Assigned Provider 10/30/19 10/31/20 Chinyere Reilly MD [address] [place] [address] [email or web address] Consulting Provider Geriatric Medicine 03/20/20 03/26/22 Marjorie Pappas NP [address] [place] [address] [email or web address] Nurse Practitioner Oncology 09/11/20 Cliff Walsh MD [address] [place] [address], 2nd [place] [address] Insurance Assigned Provider 10/28/23 Chinyere Barajas, RN [address] [place] [address] [email or web address] [facility] Humanities Instructor 09/27/21 11/07/21 documented as of this encounter Additional Source Comments The information contained in this document represents components of the legal health record. It is not the complete legal health record.[facility]
--- OUTSIDE RECORDS SUMMARY | 2025-06-25 22:16 | XMS_ITS | Encounter Summary ---
Author Organization [facility] Address [address] [place] [address] Phone Care Team Providers Care Customer Engineering Specialist Name Role Phone Julia Callahan DO Primary Care Provider [phone] Pcp, Not Required Primary Care Provider Unavaila ble Mariajose Smallwood [facility] Primary Care Provider [phone] Jose Becerra MD Primary Care Provider [phone] Mariajose Smallwood [facility] Primary Care Provider [phone] Dyan Matias system manager Provider [phone] Julia Callahan DO Unavailable [phone] Mariajose Smallwood [facility] Unavailable [phone] Pcp, Not Required Unavailable Unavailable Jose Becerra MD Unavailable Letitia Odom MD Unavailable [phone] Chinyere Reilly MD Unavailable [phone] Marjorie Pappas HAT CLEANER Unavailable [phone] Cliff Walsh MD Primary Care Provider [phone] Cliff Walsh MD Unavailable Chinyere Barajas RN Unavailable [phone] Encounter Details Date Type Department Care Team (Late Contact Info) Description 02/23/2018 Transcribe Orders [facility] Specimen Processing 30 [place] [address] Jose Becerra MD 38 [facility] [place] [address] Anemia, unspecified type (Primary Dx) Social History [...] Info) Description 10/14/2024 Procedure Pass Echo Lab [address] [place] [address] 07/01/2025 2:00 PM EST Office Visit [facility] [address] [place] [address] [place] [address] Cliff Walsh MD [address] [place] [address] 10/01/2025 11:20 AM EDT Office Visit [facility] [address] [place] [address] [place] [address] Wen Parikh MD [address] [place] [address] 10/07/2025 12:45 PM EDT Appointment Echo Lab [facility] [address] [place] [address] Eliseo Jacobs, DO 22 [facility] [address] [place] [address] 10/21/2025 12:30 PM EDT Office Visit [facility] [address] [place] [address], [address] [place] [address] Eliseo Jacobs, DO [address] [address] documented as of this encounter Results * (ABNORMAL) Basic metabolic panel (02/23/2018 4:50 AM EDT) SODIUM 142 133 - 146 mmol/L [facility] CHLORIDE 103 96 - 108 mmol/L [facility] POTASSIUM 4.3 3.3 - 5.1 mmol/L [facility] CO2 24 21 - 35 mmol/L [facility] BUN 19 6 - 19 mg/dL [facility] CREATININE 0.80 0.5 - 1.5 mg/dL [facility] GLUCOSE 122(H) 70 - 99 mg/dL [facility] CALCIUM 8.8 8.4 - 10.3 mg/dL [facility] EGFR 74 >59 mL/min/1.7 3m2 [facility] Comment:If patient is black, multiply result by 1.159. Estimated glomerular filtration rate calculated using the CKD-EPI equation. ANION GAP 19 10 - 20 mmol/L [facility] Blood 02/23/2018 4:50 AM EDT 02/23/2018 8:45 AM EDT us Jose Becerra MD LAB BLOOD BKR ORDERABLES Final R esult [facility] [address] [place] [address] * (ABNORMAL) CBC (02/23/2018 4:50 AM EDT) WBC 6.69 3.40 - 11.20 K/uL [facility] RBC 4.26 3.80 - 4.80 M/uL [facility] HGB 11.5(L) 12.0 - 15.0 g/dL [facility] HCT 35.4(L) 36.0 - 46.0 % [facility] PLT 195 130 - 400 K/uL [facility] MCV 83.1 79.0 - 98.0 fL [facility] MCH 27.0 27.0 - 34.8 pg [facility] MCHC 32.5 31.5 - 36.0 g/dL [facility] RDW 16.0(H) 10.8 - 14.6 % [facility] MPV 10.8 9.4 - 12.4 [facility] NRBC 0.00 /100 WBCs [facility] ABSOLUTE NRBC 0.00 K/uL [facility] Blood 02/23/2018 4:50 AM EDT 02/23/2018 8:45 AM EDT us Jose Becerra MD LAB BLOOD BKR ORDERABLES Final R esult Performing Organization Address City/State/[facility] Co de Phone Number [address] [address] documented in this encounter Visit Diagnoses Diagnosis [...] documented as of this encounter Care Teams Customer Engineering Specialist Relationship Specialty Start Date End Date Julia Callahan DO [address] [place] [address] PCP - General 05/11/17 03/22/18 Pcp, Not Required [address] [place] [address] PCP - General 03/23/18 08/06/18 Mariajose Smallwood FNP [address] [place] [address] 7 [place] [address] [email or web address] PCP - General Family Medicine 08/07/18 08/09/18 Jose Becerra MD [address] [place] [address] [email or web address] PCP - General Family Medicine 08/10/18 12/03/18 Mariajose Smallwood FNP [address] [place] [address] [email or web address] PCP - General Family Medicine 12/04/18 01/09/19 Dyan Matias RN [address] [place] [address] PCP - General Internal Medicine 01/10/19 09/13/20 Cliff Walsh MD [address] [place] [address], 2nd [place] [address] PCP - General Internal Medicine 09/14/20 Julia Callahan DO [address] [place] [address] 03/23/18 08/06/18 Mariajose Smallwood FNP [address] [place] [address] 7 [place] [address] Family Medicine 08/10/18 12/03/18 Pcp, Not Required [address] [place] [address] 08/07/18 08/09/18 Jose Becerra MD [address] [place] [address] 7 [place] [address] Family Medicine 12/04/18 Letitia Odom MD [address] [place] [address] Insurance Assigned Provider 10/30/19 10/31/20 Chinyere Reilly MD [address] [place] [address] Consulting Provider Geriatric Medicine 03/20/20 03/26/22 Marjorie Pappas NP [address] [place] [address] Nurse Practitioner Oncology 09/11/20 Cliff Walsh MD [address] [place] [address] Insurance Assigned Provider 10/28/23 Chinyere Barajas RN [address] [place] [address] [email or web address] [facility] Surve[facility] 09/27/21 11/07/21 documented as of this encounter Additional Source Comments The information contained in this document represents components of the legal health record. It is not the complete legal health record.[facility]
--- OUTSIDE RECORDS SUMMARY | 2025-06-25 22:16 | XMS_ITS | Encounter Summary ---
Author Organization [facility] Address [address] [place] [address] Phone Care Team Providers Care Social Science Teacher Name Role Phone Julia Callahan DO Primary Care Provider Pcp, Not Required Primary Care Provider Unavaila ble Mariajose Smallwood [facility] Primary Care Provider Jose Becerra MD Primary Care Provider [phone] Mariajose Smallwood [facility] Primary Care Provider Dyan Matias security system sales consultant Provider [phone] Julia Callahan DO Unavailable Mariajose Smallwood [facility] Unavailable [phone] Pcp, Not Required Unavailable Unavailable Jose Becerra MD Unavailable Letitia Odom MD Unavailable [phone] Chinyere Reilly MD Unavailable [phone] Marjorie Pappas CLERICAL STOCK INSPECTOR Unavailable [phone] Cliff Walsh MD Primary Care Provider [phone] Cliff Walsh MD Unavailable Chinyere Barajas RN Unavailable Encounter Details Date Type Department Care Team (Latest Contact Info) Description 12/15/2017 Transcribe Orders [facility] Specimen Processing 30 [place] [address] Jose Becerra MD 38 [facility] [place] [address] Cerebrovascular accident (CVA), unspecified mechanism (Primary Dx) Social History Tobacco Use Types [...] Info) Description 10/14/2024 Procedure Pass Echo Lab [address] [place] [address] 07/01/2025 2:00 PM EST Office Visit [facility] [address] [place] [address] [place] [address] Cliff Walsh MD [address] [place] [address] 10/01/2025 11:20 AM EDT Office Visit [facility] [address] [place] [address] [place] [address] Wen Parikh MD [address] [place] [address] 10/07/2025 12:45 PM EDT Appointment Echo Lab [place] [address] [place], [place] [address] Eliseo Jacobs, DO 22 [facility] [address] [place] [phone] [email or web address] 10/21/2025 12:30 PM EDT Office Visit [facility] [address], [address] [place], [place] [address] Eliseo Jacobs, DO 22 [facility] [address] [place] [address] [email or web address] documented as of this encounter Results * (ABNORMAL) Comprehensive metabolic panel (12/15/2017 5:50 AM EDT) SODIUM 136 133 - 146 mmol/L [facility] POTASSIUM 4.6 3.3 - 5.1 mmol/L [facility] CHLORIDE 97 96 - 108 mmol/L [facility] CO2 24 21 - 35 mmol/L [facility] BUN 32(H) 6 - 19 mg/dL [facility] CREATININE 1.20 0.5 - 1.5 mg/dL [facility] GLUCOSE 103(H) 70 - 99 mg/dL [facility] ALBUMIN 3.8(L) 3.9 - 4.8 g/dL [facility] TOTAL PROTEIN 7.7 6.5 - 8.0 g/dL [facility] CALCIUM 9.2 8.4 - 10.3 mg/dL [facility] ALKALINE PHOSPHATASE 116 39 - 117 U/L [facility] TOTAL BILIRUBIN 0.4 0.0 - 1.2 mg/dL [facility] AST 17 0 - 37 U/L [facility] ALT 19 0 - 40 U/L [facility] GLOBULIN 3.9 1 - 4.8 g/dL [facility] EGFR 45(L) >59 mL/min/1.7 3m2 [facility] Comment:If patient is black, multiply result by 1.159. The eGFR calculation has changed from the MDRD equation to the CKD-EPI equation as of September 26, 2017. ANION GAP 20 10 - 20 mmol/L [facility] Blood 12/15/2017 5:50 AM EDT 12/15/2017 9:42 AM EDT us oJse Becerra MD LAB BLOOD BKR ORDERABLES Final R esult Performing Organization Address City/[facility]/ZIP Co de Phone Number [address] [address] * (ABNORMAL) CBC (12/15/2017 5:50 AM EDT) WBC 7.76 3.40 - 11.20 K/uL [facility] RBC 4.34 3.80 - 4.80 M/uL [facility] HGB 11.7(L) 12.0 - 15.0 g/dL [facility] HCT 35.4(L) 36.0 - 46.0 % [facility] PLT 206 130 - 400 K/uL [facility] MCV 81.6 79.0 - 98.0 fL [facility] MCH 27.0 27.0 - 34.8 pg [facility] MCHC 33.1 31.5 - 36.0 g/dL [facility] RDW 15.2(H) 10.8 - 14.6 % [facility] MPV 11.0 9.4 - 12.4 [facility] NRBC 0.00 /100 WBCs [facility] ABSOLUTE NRBC 0.00 K/uL [facility] Blood 12/15/2017 5:50 AM EDT 12/15/2017 9:42 AM EDT us Jose Becerra MD LAB BLOOD BKR ORDERABLES Final R esult Performing Organization Address City/[facility]/ZIP Co de Phone Number [address] [address] documented in this encounter Visit Diagnoses Diagnosis Cerebrovascular accident (CVA), unspecified mechanism- Primary documented in this encounter Additional Health Concerns Infection Onset Date Last Indicated Resolved Time CoV-Risk Comment:Negative 04/2604/23/2020 04/26/2020 04/28/2020 2:27 PM EDT CoV-Risk Comment:Per Ambulatory Triage Form 08/05/2021 08/05/202108/15 1:23 AM EST CoV-Risk Comment:Per note documentation 11/26/2021 11/26/2021 8:25 PM EDT 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 11/27/2021 11/27/2023 1:22 AM EDT documented as of this encounter Care Teams Social Science Teacher Relationship Specialty Start Date End Date Julia Callahan DO [address] [place] [address] PCP - General 05/11/17 03/22/18 Pcp, Not Required [address] [place] [address] PCP - General 03/23/18 08/06/18 Mariajose Smallwood FNP [address] [place] [address] PCP - General Family Medicine 08/07/18 08/09/18 Jose Becerra MD [address] [place] [address] PCP - General Family Medicine 08/10/18 12/03/18 Mariajose Smallwood FNP [address] [place] [address] 7 [place] [address] PCP - General Family Medicine 12/04/18 01/09/19 Dyan Matias RN [address] [place] [address] PCP - General Internal Medicine 01/10/19 09/13/20 Cliff Walsh MD [address] [place] [address] PCP - General Internal Medicine 09/14/20 Julia Callahan DO [address] [place] [address] 03/23/18 08/06/18 Mariajose Smallwood FNP [address] [place] [address] 7 [place] [address] [email or web address] Family Medicine 08/10/18 12/03/18 Pcp, Not Required [address] [place] [address] 08/07/18 08/09/18 Jose Becerra MD [address] [place] [address] 7 [place] [address] [email or web address] Family Medicine 12/04/18 Letitia Odom MD [address] [place] [address] [email or web address] Insurance Assigned Provider 10/30/19 10/31/20 Chinyere Reilly MD [address] [place] [address] [email or web address] Consulting Provider Geriatric Medicine 03/20/20 03/26/22 Marjorie Pappas NP [address] [place] [address] [email or web address] Nurse Practitioner Oncology 09/11/20 Cliff Walsh MD [address] [place] [address] [place] [address] [email or web address] Insurance Assigned Provider 10/28/23 Chinyere Barajas, MERT [address] [place] [address] [email or web address] PHCM Digital Sales Director 09/27/21 11/07/21 documented as of this encounter Additional Source Comments The information contained in this document represents components of the legal health record. It is not the complete legal health record.[facility]
--- OUTSIDE RECORDS SUMMARY | 2025-06-25 22:16 | XMS_ITS | Encounter Summary ---
Author Organization [facility] Address [address] [place] [address] Phone Care Team Providers Care Senior Sharepoint Developer Name Role Phone Julia Callahan DO Primary Care Provider [phone] Pcp, Not Required Primary Care Provider Unavaila ble Mariajose Smallwood [facility] Primary Care Provider [phone] Jose Becerra MD Primary Care Provider [phone] Mariajose Smallwood [facility] Primary Care Provider [phone] Dyan Matias inspector filters Provider [phone] Julia Callahan DO Unavailable Mariajose Smallwood [facility] Unavailable [phone] Pcp, Not Required Unavailable Unavailable Jose Becerra MD Unavailable Letitia Odom MD Unavailable [phone] Chinyere Reilly MD Unavailable [phone] Marjorie Pappas TOOL OPERATOR Unavailable [phone] Cliff Walsh MD Primary Care Provider [phone] Cliff Walsh MD Unavailable Chinyere Barajas RN Unavailable Encounter Details Date Type Department Care Team (Late st Contact Info) Description 11/17/2017 Procedure Pass [facility], Ct Scan - [facility] [address] [place] [address] Social History Tobacco Use Types Packs/Day Years [...] Info) Description 10/14/2024 Procedure Pass [facility] [address] [place] [id number] 07/01/2025 2:00 PM EST Office Visit [facility] [address] [place] [id number] Cliff Walsh MD [address] [place] [address] 2nd [place] [address] 10/01/2025 11:20 AM EDT Office Visit [facility] [address] [place] [address] [place] [id number] Wen Parikh MD [address] [place] [address] 3rd [place] [address] 10/07/2025 12:45 PM EDT Appointment Echo Lab [address] [place] [id number] Eliseo Jacobs DO [address] [facility] [address] [place] [address] 10/21/2025 12:30 PM EDT Office Visit [facility] [address] [facility] 3rd Floor, [address] [place] [address] Eliseo Jacobs DO [address] [facility] [address] [place] [address] documented as of this encounter Visit Diagnoses [...] documented as of this encounter Care Teams Senior Sharepoint Developer Relationship Specialty Start Date End Date Julia Callahan DO [address] [place] [address] PCP - General 05/11/17 03/22/18 Pcp, Not Required [address] [place] [address] PCP - General 03/23/18 08/06/18 Mariajose Smallwood FNP [address] [place] [address] 7 [place] [address] PCP - General Family Medicine 08/07/18 08/09/18 Jose Becerra MD [address] [place] [address] 7 [place] [address] PCP - General Family Medicine 08/10/18 12/03/18 Mariajose Smallwood FNP [address] [place] [address] 7 [place] [address] [email or web address] PCP - General Family Medicine 12/04/18 01/09/19 Dyan Matias RN [address] [place] [address] [email or web address] PCP - General Internal Medicine 01/10/19 09/13/20 Cliff Walsh MD [address] [place] [address] [email or web address] PCP - General Internal Medicine 09/14/20 Julia Callahan DO [address] [place] [address] 03/23/18 08/06/18 Mariajose Smallwood FNP [address] [place] [address] 7 [place] [address] [email or web address] Family Medicine 08/10/18 12/03/18 Pcp, Not Required [address] [place] [address] 08/07/18 08/09/18 Jose Becerra MD [address] [place] [address] 7 [place] [address] [email or web address] Family Medicine 12/04/18 Letitia Odom MD [address] [place] [address] [email or web address] Insurance Assigned Provider 10/30/19 10/31/20 Chinyere Reilly MD [address] [place] [address] [email or web address] Consulting Provider Geriatric Medicine 03/20/20 03/26/22 Marjorie Pappas NP [address] [place] [address] [email or web address] Nurse Practitioner Oncology 09/11/20 Cliff Walsh MD [address] [place] [address] [email or web address] Insurance Assigned Provider 10/28/23 Chinyere Barajas RN [address] [place] [address] [email or web address] [facility] Speech Language Assistant 09/27/21 11/07/21 documented as of this encounter Additional Source Comments The information contained in this document represents components of the legal health record. It is not the complete legal health record.[facility]
--- OUTSIDE RECORDS SUMMARY | 2025-06-25 22:16 | XMS_ITS | Encounter Summary ---
Author Organization [facility] Address [address] [facility] [address] [place] [address] Phone Care Team Providers Care Office System Analyst Name Role Phone Julia Callahan DO Primary Care Provider Pcp, Not Required Primary Care Provider Unavaila ble Mariajose Smallwood [facility] Primary Care Provider [phone] Jose Becerra MD Primary Care Provider [phone] [facility] Primary Care Provider [phone] Dyan Matias restaurant assistant manager Provider [phone] Julia Callahan DO Unavailable [phone] [facility] Unavailable [phone] Pcp, Not Required Unavailable Unavailable Jose Becerra MD Unavailable Letitia Odom MD Unavailable [phone] Chinyere Reilly MD Unavailable [phone] Marjorie Pappas GREEN PLUMBER Unavailable [phone] Cliff Walsh MD Primary Care Provider [phone] Cliff Walsh MD Unavailable Chinyere Barajas RN Unavailable [phone] Encounter Details Date Type Department Care Team (Late st Contact Info) Description 11/16/2017 Procedure Pass [facility], Ct Scan - [facility] [address] [place] [address] Social History Tobacco Use Types Packs/Day Years [...] Info) Description 10/14/2024 Procedure Pass [facility] [address] [place] [address] 07/01/2025 2:00 PM EST Office Visit [facility] [address] [place] [address] Cliff Walsh MD [address] [place] [address] 2nd [place] [address] 10/01/2025 11:20 AM EDT Office Visit [facility] [address] [place] [address] [place] [address] Wen Parikh MD [address] [place] [address] 3rd [place] [address] 10/07/2025 12:45 PM EDT Appointment Echo Lab [address] [place] [address] Eliseo Jacobs DO [address] [facility] [address] [place] [address] 10/21/2025 12:30 PM EDT Office Visit [facility] [address] [facility] 3rd Floor, [address] [place] [address] Eliseo Jacobs DO [address] [facility] [address] [place] [address] documented as of this encounter Visit Diagnoses [...] documented as of this encounter Care Teams Office System Analyst Relationship Specialty Start Date End Date Julia Callahan DO [address] [place] [address] PCP - General 05/11/17 03/22/18 Pcp, Not Required [address] [place] [address] PCP - General 03/23/18 08/06/18 Mariajose Smallwood FNP [address] [place] [address] 7 [place] [address] PCP - General Family Medicine 08/07/18 08/09/18 Jose Becerra MD [address] [place] [address] 7 [place] [address] PCP - General Family Medicine 08/10/18 12/03/18 Mariajose Smallwood FNP [address] [place] [address] 7 [place] [address] [email or web address] PCP - General Family Medicine 12/04/18 01/09/19 Dyan Matias RN [address] [place] [address] [email or web address] PCP - General Internal Medicine 01/10/19 09/13/20 Cliff Walsh MD [address] [place] [address] [email or web address] PCP - General Internal Medicine 09/14/20 Julia Callahan DO [address] [place] [address] 03/23/18 08/06/18 Mariajose Smallwood FNP [address] [place] [address] 7 [place] [address] [email or web address] Family Medicine 08/10/18 12/03/18 Pcp, Not Required [address] [place] [address] 08/07/18 08/09/18 Jose Becerar MD [address] [place] [address] 7 [place] [address] [email or web address] Family Medicine 12/04/18 Letitia Odom MD [address] [place] [address] [email or web address] Insurance Assigned Provider 10/30/19 10/31/20 Chinyere Reilly MD [address] [place] [address] [email or web address] Consulting Provider Geriatric Medicine 03/20/20 03/26/22 Marjorie Pappas NP [address] [place] [address] [email or web address] Nurse Practitioner Oncology 09/11/20 Cliff Walsh MD [address] [place] [address] [email or web address] Insurance Assigned Provider 10/28/23 Chinyere Barajas RN 10 [place] [address] [email or web address] [facility] High School Biology Teacher 09/27/21 11/07/21 documented as of this encounter Additional Source Comments The information contained in this document represents components of the legal health record. It is not the complete legal health record.[facility]
--- OUTSIDE RECORDS SUMMARY | 2025-06-25 22:17 | XMS_ITS | Encounter Summary ---
Author Organization [facility] Address [address] [facility] [address] [place] [address] Phone Care Team Providers Care Retail Sales Vitamin Consultant Name Role Phone Adis Callahan DO Primary Care Provider Pcp, Not Required Primary Care Provider Unavaila ble Mariajose Smallwood [facility] Primary Care Provider Jose Becerra MD Primary Care Provider [phone] Mariajose Smallwood [facility] Primary Care Provider [phone] Dyan Matias personal financial counselor Provider [phone] Adis Callahan DO Unavailable [phone] Mariajose Smallwood [facility] Unavailable [phone] Pcp, Not Required Unavailable Unavailable Jose Becerra MD Unavailable Letitia Odom MD Unavailable [phone] Chinyere Reilly MD Unavailable [phone] Marjorie Pappas NATIONAL COVERAGE SPECIALIST Unavailable [phone] Cliff Walsh MD Primary Care Provider [phone] Cliff Walsh MD Unavailable [phone] Chinyere Barajas RN Unavailable [phone] Encounter Details Date Type Department Care Team (Late Contact Info) Description 01/20/2018 Transcribe Orders [facility] Specimen Processing [address] [place] [address] Jose Becerra MD [address] [facility] [address] [place] [address] Diagnosis unknown (Primary Dx) Social History Tobacco Use Types [...] Info) Description 10/14/2024 Procedure Pass [facility] [address] [place] [address] 07/01/2025 2:00 PM EST Office Visit [facility] [address] [place] [address] [place] [address] Cliff Walsh MD [address] [place] [address] 10/01/2025 11:20 AM EDT Office Visit [facility] [address] [place] [address] [place] [address] Wen Parikh MD [address] [place] [address] 10/07/2025 12:45 PM EDT Appointment Echo Lab [facility] [address] [place] [address] Eliseo Jacobs, DO [address] [facility] [address] [place] [address] 10/21/2025 12:30 PM EDT Office Visit [facility] [address]rd Floor, [address] [place] [address] Eliseo Jacobs, DO [address] [facility] [address] [place] [address] documented as of this encounter Procedures Procedure Name Priority Date/Time Associated Diagnosis Comments CBC Routine 01/20/2018 8:05 AM EDT Diagnosis unknown BASIC METABOLIC PANEL (BMP) Routine 01/20/2018 8:05 AM EDT Diagnosis unknown documented in this encounter Results * (ABNORMAL) Basic metabolic panel (01/20/2018 8:05 AM EDT) SODIUM 146 133 - 146 mmol/L [facility] CHLORIDE 107 96 - 108 mmol/L [facility] POTASSIUM 4.5 3.3 - 5.1 mmol/L [facility] CO2 27 21 - 35 mmol/L [facility] BUN 17 6 - 19 mg/dL [facility] CREATININE 0.90 0.5 - 1.5 mg/dL [facility] GLUCOSE 115(H) 70 - 99 mg/dL [facility] CALCIUM 9.1 8.4 - 10.3 mg/dL [facility] EGFR 64 >59 mL/min/1.7 3m2 [facility] Comment:If patient is black, multiply result by 1.159. Estimated glomerular filtration rate calculated using the CKD-EPI equation. ANION GAP 17 10 - 20 mmol/L [facility] Blood 01/20/2018 8:05 AM EDT 01/20/2018 9:44 AM EDT Jose Becerra MD LAB BLOOD BKR ORDERABLES Final R esult Performing Organization Address [facility] Co de Phone Number [address] [address] * (ABNORMAL) CBC (01/20/2018 8:05 AM EDT) WBC 6.65 3.40 - 11.20 K/uL [facility] RBC 4.29 3.80 - 4.80 M/uL [facility] HGB 11.5(L) 12.0 - 15.0 g/dL [facility] HCT 35.7(L) 36.0 - 46.0 % [facility] PLT 228 130 - 400 K/uL [facility] MCV 83.2 79.0 - 98.0 fL [facility] MCH 26.8(L) 27.0 - 34.8 pg [facility] MCHC 32.2 31.5 - 36.0 g/dL [facility] RDW 15.7(H) 10.8 - 14.6 % [facility] MPV 10.5 9.4 - 12.4 fl [facility] NRBC 0.00 /100 WBCs [facility] ABSOLUTE NRBC 0.00 K/uL [facility] Blood 01/20/2018 8:05 AM EDT 01/20/2018 9:44 AM EDT us Jose Becerra MD LAB BLOOD BKR ORDERABLES Final R esult Performing Organization Address [facility]/ZIP Co de Phone Number [address] [address] documented in this encounter Visit Diagnoses Diagnosis Diagnosis unknown- Primary documented in this encounter Additional Health Concerns Infection Onset Date Last Indicated Resolved Time CoV-Risk Comment:Negative 04/2604/23/2020 04/26/2020 04/28/2020 2:27 PM EDT CoV-Risk Comment:Per Ambulatory Triage Form 08/05/2021 08/05/202108/15 1:23 AM EST CoV-Risk Comment:Per note documentation 11/26/2021 11/26/2021 8:25 PM EDT 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 11/27/2021 11/27/2023 1:22 AM EDT documented as of this encounter Care Teams Retail Sales Vitamin Consultant Relationship Specialty Start Date End Date Adis Callahan DO [address] [place] [address] PCP - General 05/11/17 03/22/18 Pcp, Not Required [address] [place] [address] PCP - General 03/23/18 08/06/18 Mariajose Smallwood FNP [address] [place] [address] PCP - General Family Medicine 08/07/18 08/09/18 Jose Becerra MD [address] [place] [address] 7 [place] [address] PCP - General Family Medicine 08/10/18 12/03/18 Mariajose Smallwood FNP [address] [place] [address] 7 [place] [address] PCP - General Family Medicine 12/04/18 01/09/19 Dyan Matias RN [address] [place] [address] PCP - General Internal Medicine 01/10/19 09/13/20 Cliff Walsh MD [address] [place] [address], 2nd [place] [address] PCP - General Internal Medicine 09/14/20 Adis Callahan DO [address] [place] [address] 03/23/18 08/06/18 Mariajose Smallwood FNP [address] [place] [address] 7 [place] [address] [email or web address] Family Medicine 08/10/18 12/03/18 Pcp, Not Required [address] [place] [address] 08/07/18 08/09/18 Jose Becerra MD [address] [place] [address] Family Medicine 12/04/18 Letitia Odom MD [address] [place] [address] [email or web address] Insurance Assigned Provider 10/30/19 10/31/20 Chinyere Reilly MD [address] [place] [address] Consulting Provider Geriatric Medicine 03/20/20 03/26/22 Marjorie Pappas NP [address] [place] [address] Nurse Practitioner Oncology 09/11/20 Cliff Walsh MD [address] [place] [address] Insurance Assigned Provider 10/28/23 Chinyere Barajas RN [address] [place] [address] PH[facility] Scientific Writer 09/27/21 11/07/21 documented as of this encounter Additional Source Comments The information contained in this document represents components of the legal health record. It is not the complete legal health record.[facility]
--- OUTSIDE RECORDS SUMMARY | 2025-06-25 22:17 | XMS_ITS | Encounter Summary ---
Author Organization [facility] Address [address] [facility] [address] [place] [address] Phone Care Team Providers Care Terminal Supervisor Name Role Phone Jose Becerra MD Unavailable Marjorie Pappas [employer] Unavailable [phone] Cliff Walsh MD Primary Care Provider Cliff Walsh MD Unavailable Reason for Visit * Reason Comments Medication Refill Encounter Details Date Type Department Care Team (Late st Contact Info) Description 04/19/2025 Refill [facility] [address] [place] [address] [place] [address] Cliff Walsh MD [address] [facility], 2nd Floor [place]NY [place] [address] Medication Refill Social History Tobacco Use Types Packs/Day Years Used Date Smoking Tobacco: Former Cigarettes 1 15 1 3 - 2007 Smokeless Tobacco: Never Alcohol Use Standard Drinks/Week Comments No 0 (1 standard drink = 0.6 oz pur e alcohol) Home Health Assessment: Transportation Answer Date Recorded Lack of Transportation (Medical) No 06/07/2024 Lack of Transportation (Non-Medical) No 06/07/2024 Patient Unable or Declines to Respond No 06/07/2024 Education Answer Date Recorded Are you interested in more education? Not on lynnette e 11/18/2022 Are you concerned about learning? Not on file 11/18/2022 No 11/18/2022 No 11/18/2022 Digital Access Answer Date Recorded No 12/13/2022 No 12/13/2022 Reliable internet access at home? Not on file 12/13/2022 Device with a working camera? Not on file Comments No Sex and Gender Information Value Date Recorded Sex Assigned at Female 11/16/2017 5:42 PM EDT Legal Sex Female 10:08 PM EDT Gender Identity Female 11/16/2017 5:42 PM EDT Sexual Orientation Straight 11/16/2017 5: 42 PM EDT documented as of this encounter Progress Notes * Gilberto Sandoval CMA - 04/21/2025 11:05 AM EDT Rx Care Gap Status - Instructions for Clinical Staff (prescriber discretion applies): > Mismatch review guide > No future appt: Please schedule if appropriate. Visit Info Last visit: 03/31/2025 Cliff Walsh MD - Family Medicine [facility] > Requested f/u: Return if symptoms worsen or fail to improve. Upcoming visit: None ACTIONS TAKEN BY Gilberto Sandoval CMA - Criteria met. Antiplatelet Rx Protocol - clopidogrel bisulfate Criteria met; renew for up to 12 months. Visit in the past 14 months: Yes Clinical criteria: - BMP within past year: Yes Lab Results Component Value Date SODIUM 144 08/13/2024 POTASSIUM 4.5 08/13/2024 CHLORIDE 99 08/13/2024 CO2 36 (H) 08/13/2024 BUN 31 (H) 08/13/2024 CREATININE 1.50 08/13/2024 EGFR 35 (L) 08/13/2024 Lab Results Component Value Date CREATININE 1.50 08/13/2024 CREATININE 1.40 07/01/2024 CREATININE 1.30 09/29/2023 EGFR 35 (L) 08/13/2024 EGFR 39 (L) 07/01/2024 EGFR 42 (L) 09/29/2023 documented in this encounter Plan of Treatment Upcoming Encounters Date Type Department Care Team (Late st Contact Info) Description 10/14/2024 Procedure Pass [facility] [address] [place] [address] 07/01/2025 2:00 PM EST Office Visit [facility] [address] [place] [address] [place] [address] Cliff Walsh MD [address] [place] [address] 2nd [place] [address] 10/01/2025 11:20 AM EDT Office Visit [facility] [address] [place] [address] [place] [address] Wen Parikh MD [address] [place] [address] 3[address] [place] [address] 10/07/2025 12:45 PM EDT Appointment Echo Lab [address] [place] [address] Eliseo Jacobs DO [address] [place] [address] 10/21/2025 12:30 PM EDT Office Visit [facility] [address] [place] [address] 3rd [facility], [address] [address] Eliseo Jacobs DO [address] [place] [address] documented as of this encounter Visit Diagnoses Diagnosis Atherosclerosis of coronary artery of sycuan heart without angina pectoris, unspecified vessel or lesion type documented in this encounter Additional Health Concerns Assessment Noted Time PHQ-9 Depression Total Score: 11 020 9:53 AM EST PHQ-2 Depression Total Score: 0 12/10/19 21 10:22 AM EDT documented as of this encounter Care Teams Terminal Supervisor Relationship Specialty Start Date End Date Cliff Walsh MD [address] [place] [address] PCP - General Internal Medicine 09/14/20 Jose Becerra MD Family Medicine 12/04/18 Marjorie Pappas NP [address] [place] [address] Nurse Practitioner Oncology 09/11/20 Cliff Walsh MD [address] [place] [address] Insurance Assigned Provider 10/28/23 documented as of this encounter Additional Source Comments The information contained in this document represents components of the legal health record. It is not the complete legal health record.[facility]
--- OUTSIDE RECORDS SUMMARY | 2025-06-25 22:17 | XMS_ITS | Encounter Summary ---
Author Organization [facility] Address [address] [place] [address] Phone Care Team Providers Care Dry Cleaner Helper Name Role Phone Jose Becerra MD Unavailable Chinyere Reilly MD Unavailable [phone] Marjorie Pappas LAP LAYER Unavailable [phone] Cliff Walsh MD Primary Care Provider [phone] Cliff Walsh MD Unavailable Encounter Details Date Type Department Care Team (Late st Contact Info) Description 12/14/2021 Transcribe Orders Virtual Department [address] [place] [address] Cliff Walsh MD [address] [facility], 2nd [place] [address] [email or web address] Breast screening (Primary Dx) Social History Tobacco Use Types Packs/Day Years Used Date Smoking Tobacco: Former Cigarettes 1 15 1 993 - 2007 Smokeless Tobacco: Never Alcohol Use [...] Info) Description 10/14/2024 Procedure Pass Echo Lab [address] [place] [address] 07/01/2025 2:00 PM EST Office Visit [facility] [place] [facility] [address] [place] [address] Cliff Walsh MD [address] [place] [address] 2nd [place] [address] 10/01/2025 11:20 AM EDT Office Visit [facility] [address] [place] [address] [place] [address] Wen Parikh MD [address] [place] [address] 3rd [place] [address] 10/07/2025 12:45 PM EDT Appointment Echo Lab [address] [place] [address] Eliseo Jacobs [address] [address] 10/21/2025 12:30 PM EDT Office Visit [facility] [address] [place] [address] 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 11/27/2021 11/27/2023 1:22 AM EDT Assessment Noted Time PHQ-9 Depression Total Score: 11 020 9:53 AM EST PHQ-2 Depression Total Score: 0 12/10/19 10:22 AM EDT documented as of this encounter Care Teams Dry Cleaner Helper Relationship Specialty Start Date End Date Cliff Walsh MD [address] [place] [address] PCP - General Internal Medicine 09/14/20 Jose Becerra MD Family Medicine 12/04/18 Chinyere Reilly MD Consulting Provider Geriatric Medicine 03/20/20 03/26/22 Marjorie Pappas NP [facility] [place] [address] Nurse Practitioner Oncology 09/11/20 Cliff Walsh MD [address] [place] [address] Insurance Assigned Provider 10/28/23 documented as of this encounter Additional Source Comments The information contained in this document represents components of the legal health record. It is not the complete legal health record.[facility]
--- OUTSIDE RECORDS SUMMARY | 2025-06-25 22:17 | XMS_ITS | Encounter Summary ---
Author Organization [facility] Address [address] [place] [address] Phone Care Team Providers Care Dairy Management Specialist Name Role Phone Jose Becerra MD Unavailable Marjorie Pappas TRACK REPAIRER Unavailable [phone] Cliff Walsh MD Primary Care Provider [phone] Cliff Walsh MD Unavailable [phone] Encounter Details Date Type Department Care Team (Late st Contact Info) Description 07/22/2024 Procedure Pass [facility] [address] [place] [address] Social History Tobacco Use Types Packs/Day Years [...] Info) Description 10/14/2024 Procedure Pass Echo Lab [address] [place] [address] 07/01/2025 2:00 PM EST Office Visit [facility] [address] [place] [address] Cliff Walsh MD [address] [place] [address] 10/01/2025 11:20 AM EDT Office Visit [facility] [address] [place] [address] [place] [address] Wen Parikh MD [address] [place] [address] 3rd [place] [address] 10/07/2025 12:45 PM EDT Appointment Echo Lab [address] [place] [address] Eliseo Jacobs DO 22 [facility] [address] [place] [address] 10/21/2025 12:30 PM EDT Office Visit [facility] [address] [place] [address] 3[address] [facility], [address] [place] [address] Eliseo Jacobs, DO [address] [address] [email or web address] documented as of this encounter Visit Diagnoses Not on filedocumented in this encounter Additional Health Concerns Assessment Noted Time PHQ-9 Depression Total Score: 11 020 9:53 AM EST PHQ-2 Depression Total Score: 0 12/10/19 21 10:22 AM EDT documented as of this encounter Care Teams Dairy Management Specialist Relationship Specialty Start Date End Date Cliff Walsh MD [address] [place] [address] PCP - General Internal Medicine 09/14/20 Jose Becerra MD Family Medicine 12/04/18 Marjorie Pappas [place] [address] Nurse Practitioner Oncology 09/11/20 Cliff Walsh MD [address] [place] [address] Insurance Assigned Provider 10/28/23 documented as of this encounter Additional Source Comments The information contained in this document represents components of the legal health record. It is not the complete legal health record.[facility]
--- OUTSIDE RECORDS SUMMARY | 2025-06-25 22:17 | XMS_ITS | Encounter Summary ---
Author Organization [facility] Address [address] [place] [address] Phone Care Team Providers Care Business Center Manager Name Role Phone Jose Becerra MD Unavailable Marjorie Pappas MUNICIPAL SERVICES MANAGER Unavailable [phone] Cliff Walsh MD Primary Care Provider Cliff Walsh MD Unavailable [phone] Encounter Details Date Type Department Care Team (Late st Contact Info) Description 06/17/2025 Orders Only [facility] [address] [place] [address] [place] [address] Unknown, Unknown, MD Social History Tobacco Use Types Packs/Day Years Used Date Smoking Tobacco: Former Cigarettes 1 3 - 2007 Smokeless Tobacco: Never [...] Info) Description 10/14/2024 Procedure Pass Echo Lab [address] [place] [address] 07/01/2025 2:00 PM EST Office Visit [facility] [address] [place] [address] [place] [address] Cliff Walsh MD [address] [place] [address] 2nd [place] [address] 10/01/2025 11:20 AM EDT Office Visit [facility] [address] [place] [address] [place] [address] Wen Parikh MD [address] [place] [address] 3rd [place] [address] 10/07/2025 12:45 PM EDT Appointment Echo Lab [address] [place] [address] Eliseo Jacobs DO [address] [place] [address] [place] [address] 10/21/2025 12:30 PM EDT Office Visit [facility] [address] [place] [address] 3rd Floor, [address] [place] [address] Eliseo Jacobs, DO 22 [facility] [address] [place] [address] [email or web address] documented as of this encounter Procedures Procedure Name Priority Date/Time Associated Diagnosis Comments OUTSIDE IMAGING Routine 06/17/2025 4:36 PM EST OUTSIDE IMAGING Routine 06/17/2025 4:36 PM EST OUTSIDE IMAGING Routine 06/17/2025 4:35 PM EST OUTSIDE IMAGING Routine 06/17/2025 4:15 PM EST documented in this encounter Results * Outside Imaging Report Only (06/17/2025 4:36 PM EST) Historical Provider MD IMG XR CHEST Final Res ult * Outside Imaging Report Only (06/17/2025 4:36 PM EST) Historical Provider MD IMG XR CHEST Final Res ult * Outside Imaging Report Only (06/17/2025 4:35 PM EST) Historical Provider MD IMG XR CHEST Final Res ult * Outside Imaging Report Only (06/17/2025 4:15 PM EST) us Unknown Unknown MD IMG XR CHEST Edited Result - Final documented in this encounter Visit Diagnoses Not on filedocumented in this encounter Additional Health Concerns Assessment Noted Time PHQ-9 Depression Total Score: 11 020 9:53 AM EST PHQ-2 Depression Total Score: 0 12/10/19 21 10:22 AM EDT documented as of this encounter Care Teams Business Center Manager Relationship Specialty Start Date End Date Cliff Walsh MD [address] [place] [address], 2nd [place] [address] [email or web address] PCP - General Internal Medicine 09/14/20 Jose Becerra MD [email or web address] 12/04/18 Marjorie Pappas [facility] [place] [address] [email or web address] Nurse Practitioner Oncology 09/11/20 Cliff Walsh MD [address] [place] [address], 2[address] [place] [address] [email or web address] Insurance Assigned Provider 10/28/23 documented as of this encounter Additional Source Comments The information contained in this document represents components of the legal health record. It is not the complete legal health record.[facility]
--- OUTSIDE RECORDS SUMMARY | 2025-06-25 22:17 | XMS_ITS | Encounter Summary ---
Author Organization [facility] Address [address] [facility] [place] [address] Phone Care Team Providers Care Florist Designer Name Role Phone Julia Callahan DO Primary Care Provider Pcp, Not Required Primary Care Provider Unavaila ble Mariajose Smallwood [facility] Primary Care Provider [phone] Jose Becerra MD Primary Care Provider [phone] Mariajose Smallwood [facility] Primary Care Provider [phone] Dyan Matias snorkelling instructor Provider [phone] Julia Callahan DO Unavailable [phone] Mariajose Smallwood [facility] Unavailable [phone] Pcp, Not Required Unavailable Unavailable Jose Becerra MD Unavailable Letitia Odom MD Unavailable [phone] Chinyere Reilly MD Unavailable [phone] Marjorie Pappas SNORKELLING INSTRUCTOR Unavailable [phone] Cliff Walsh MD Primary Care Provider [phone] Cliff Walsh MD Unavailable [phone] Chinyere Barajas RN Unavailable [phone] Reason for Referral * Physical Therapy (Routine) - Closed Specialty Diagnoses / Procedures Referred By Espinoza t Referred To Contact Physical Therapy Diagnoses Encounter for rehabilitation Julia Callahan DO Phone: tel: fax: [email or web address] [facility] [address] [place] [address] Phone: tel: Referral ID Status Reason Start Date Expiration Date Visits Re quested Visits Authorized [id number] Closed 08/16/2017 07/23/2018 99 [phone] Encounter Details Date Type Department Care Team (Latest Contact Info) Description 08/16/2017 Transcribe Orders [facility] [address] [place] [address] Julia Callahan DO [address] [place] [address] [email or web address] Encounter for rehabilitation (Primary Dx) Social History Tobacco Use Types Packs/Day Years Used Date Smoking Tobacco: Never Smokeless Tobacco: Never Alcohol Use Standard Drinks/Week Comments No 0 (1 standard drink = 0.6 oz pur e alcohol) Comments Unknown Sex and Gender Information Value Date Recorded Sex Assigned at Female 11/16/2017 5:42 PM EDT Legal Sex Female 10:08 PM EDT Gender Identity Female 11/16/2017 5:42 PM EDT Sexual Orientation Straight 11/16/2017 5: 42 PM EDT documented as of this encounter Plan of Treatment Upcoming Encounters Date Type Department Care Team (Late st Contact Info) Description 10/14/2024 Procedure Pass Echo Lab [address] [place] [address] 07/01/2025 2:00 PM EST Office Visit [facility] [address] [place] [address] [place] [address] Cliff Walsh MD [address] [place] [address], 2nd [place] [address] 10/01/2025 11:20 AM EDT Office Visit [facility] [address] [place] [address] [place] [address] Wen Parikh MD [address] [place] [address] 3rd [place] [address] 10/07/2025 12:45 PM EDT Appointment Echo Lab [address] [place] [address] Eliseo Jacobs DO [address] [place] [address] 10/21/2025 12:30 PM EDT Office Visit [facility] [address] [place] [address], [address] [place] [address] Eliseo Jacobs DO [address] [place] [address] documented as of this encounter Procedures Procedure Name Priority Date/Time Associated Diagnosis Comments AMB REFERRAL TO [facility] PHYSICAL THERAPY Routine 09/08/2017 3:26 PM EST Encounter for rehabilitation documented in this encounter Results * Ambulatory referral to [facility] Physical Therapy (09/08/2017 3:26 PM EST) Julia Callahan DO [facility] RE[facility] Final Result documented in this encounter Visit Diagnoses Diagnosis Encounter for rehabilitation- Primary documented in this encounter Additional Health Concerns Infection Onset Date Last Indicated Resolved Time CoV-Risk Comment:Negative 04/2604/23/2020 04/26/2020 04/28/2020 2:27 PM EDT CoV-Risk Comment:Per Ambulatory Triage Form 08/05/2021 08/05/202108/15 1:23 AM EST CoV-Risk Comment:Per note documentation 11/26/2021 11/26/2021 05/07/202 2 8:25 PM EDT 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 11/27/2021 11/27/2023 1:22 AM EDT documented as of this encounter Care Teams Florist Designer Relationship Specialty Start Date End Date Julia Callahan DO [address] [place] [address] PCP - General 05/11/17 03/22/18 Pcp, Not Required [address] [place] [address] PCP - General 03/23/18 08/06/18 Mariajose Smallwood FNP [address] [place] [address] [address] [place] [address] [email or web address] PCP - General Family Medicine 08/07/18 08/09/18 Jose Becerra MD [address] [place] [address] 7 [place] [address] PCP - General Family Medicine 08/10/18 12/03/18 Mariajose Smallwood FNP [address] [place] [address] 7 [place] [address] PCP - General Family Medicine 12/04/18 01/09/19 Dyan Matias RN [address] [place] [address] PCP - General Internal Medicine 01/10/19 09/13/20 Cliff Walsh MD [address] [place] [address], 2nd [place] [address] PCP - General Internal Medicine 09/14/20 Julia Callahan DO [address] [place] [address] 03/23/18 08/06/18 Mariajose Smallwood FNP [address] [place] [address] 7 [place] [address] Family Medicine 08/10/18 12/03/18 Pcp, Not Required [address] [place] [address] 08/07/18 08/09/18 Jose Becerra MD [address] [place] [address] 7 [place] [address] Family Medicine 12/04/18 Letitia Odom MD [address] [place] [address] Insurance Assigned Provider 10/30/19 10/31/20 Chinyere Reilly MD [address] [place] [address] Consulting Provider Geriatric Medicine 03/20/20 03/26/22 Marjorie Pappas NP [address] [place] [address] Nurse Practitioner Oncology 09/11/20 Cliff Walsh MD [address] [place] [address] Insurance Assigned Provider 10/28/23 Chinyere Barajas, RN [address] [place] [address] [email or web address] [facility] Modeling Manager 09/27/21 11/07/21 documented as of this encounter Additional Source Comments The information contained in this document represents components of the legal health record. It is not the complete legal health record.[facility]
--- OUTSIDE RECORDS SUMMARY | 2025-06-25 22:17 | XMS_ITS | Encounter Summary ---
Author Organization [facility] Address [address] [facility] [address] [place] [address] Phone Care Team Providers Care Desk Officer Name Role Phone Jose Becerra MD Unavailable Chinyere Reilly MD Unavailable [phone] Marjorie Pappas SWING FRAME GRINDER OPERATOR Unavailable [phone] Cliff Walsh MD Primary Care Provider Cliff Walsh MD Unavailable [phone] Encounter Details Date Type Department Care Team (Late st Contact Info) Description 11/27/2021 Procedure Pass [facility] Scan - [facility] [address] [place] [address] Social History Tobacco Use Types Packs/Day Years [...] PM EDT documented as of this encounter Functional Status * Calculated C-SSRS Risk Score (Lifetime/Recent) Answer Date of Assessment Author No Risk Indicated 11/27/2021 2:30 AM EDT Mary Black RN * [place] Suicide Severity Rating Scale (Screener/Recent Self-Report) Question Answer Date of Assessment Author 6. Suicidal Behavior (Lifetime) No 2:30 AM EDT Mary Black RN documented as of this encounter Plan of Treatment Upcoming Encounters Date Type Department Care Team (Late st Contact Info) Description 10/14/2024 Procedure Pass Echo Lab [address] [place] [address] 07/01/2025 2:00 PM EST Office Visit [facility] [address] [place] [address] Cliff Walsh MD [address] [place] [address] 2nd [place] [address] 10/01/2025 11:20 AM EDT Office Visit [facility] [address] [place] [address] [place] [address] Wen Parikh MD [address] [place] [address] 3[address] [place] [address] 10/07/2025 12:45 PM EDT Appointment Echo Lab [address] [place] [address] Eliseo Jacobs DO [address] [place] [address] 10/21/2025 12:30 PM EDT Office Visit [facility] [address] [place] [address] 3rd [facility], [address] [place] [address] Eliseo Jacobs DO [address] [place] [address] [email or web address] documented as of this encounter Visit Diagnoses Not on filedocumented in this encounter Additional Health Concerns Infection Onset Date Last Indicated Resolved Time CoV-Risk Comment:Per note documentation 11/26/2021 11/26/2021 8:25 PM EDT 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 11/27/2021 11/27/2023 1:22 AM EDT Assessment Noted Time PHQ-9 Depression Total Score: 11 020 9:53 AM EST PHQ-2 Depression Total Score: 0 12/10/19 21 10:22 AM EDT documented as of this encounter Care Teams Desk Officer Relationship Specialty Start Date End Date Cliff Walsh MD [address] [place] [address] PCP - General Internal Medicine 09/14/20 Jose Becerra MD Family Medicine 12/04/18 Chinyere Reilly MD Consulting Provider Geriatric Medicine 03/20/20 03/26/22 Marjorie Pappas NP [address] [place] [address] Nurse Practitioner Oncology 09/11/20 Cliff Walsh MD [address] [place] [address] [email or web address] Insurance Assigned Provider 10/28/23 documented as of this encounter Additional Source Comments The information contained in this document represents components of the legal health record. It is not the complete legal health record.[facility]
--- OUTSIDE RECORDS SUMMARY | 2025-06-25 22:17 | XMS_ITS | Encounter Summary ---
Author Organization [facility] Address [address] [facility] [address] [place] [address] Phone Care Team Providers Care Dice Table Person Name Role Phone Julia Callahan DO Primary Care Provider Pcp, Not Required Primary Care Provider Unavaila ble Mariajose Smallwood [facility] Primary Care Provider Jose Becerra MD Primary Care Provider [phone] Mariajose Smallwood [facility] Primary Care Provider [phone] Dyan Matias instrumentation supervisor Provider [phone] Julia Callahan DO Unavailable [phone] Mariajose Smallwood [facility] Unavailable [phone] Pcp, Not Required Unavailable Unavailable Jose Becerra MD Unavailable Letitia Odom MD Unavailable [phone] Chinyere Reilly MD Unavailable [phone] Marjorie Pappas WATCH REPAIR TECHNICIAN Unavailable [phone] Cliff Walsh MD Primary Care Provider [phone] Cliff Walsh MD Unavailable Chinyere Barajas RN Unavailable Encounter Details Date Type Department Care Team (Late Contact Info) Description 01/05/2018 Transcribe Orders [facility] Specimen Processing 30 [place] [address] Jose Becerra MD 38 [facility], [address] [place] [address] Anemia, unspecified type (Primary Dx) Social History [...] Info) Description 10/14/2024 Procedure Pass Echo Lab [address] [place] [address] 07/01/2025 2:00 PM EST Office Visit [facility] [address] [place] [address] [place] [address] Cliff Walsh MD [address] [place] [address] 10/01/2025 11:20 AM EDT Office Visit [facility] [address] [place] [address] [place] [address] Wen Parikh MD [address] [place] [address] 10/07/2025 12:45 PM EDT Appointment Echo Lab [facility] [address] [place] [address] Eliseo Jacobs, DO 22 [facility] [address] [place] [address] [email or web address] 10/21/2025 12:30 PM EDT Office Visit [facility] [address], [address] [place] [address] Eliseo Jacobs, DO [address] [address] documented as of this encounter Results * (ABNORMAL) Basic metabolic panel (01/05/2018 4:50 AM EDT) SODIUM 146 133 - 146 mmol/L [facility] CHLORIDE 105 96 - 108 mmol/L [facility] POTASSIUM 4.4 3.3 - 5.1 mmol/L [facility] CO2 27 21 - 35 mmol/L [facility] BUN 11 6 - 19 mg/dL [facility] CREATININE 0.80 0.5 - 1.5 mg/dL [facility] GLUCOSE 124(H) 70 - 99 mg/dL [facility] CALCIUM 8.8 8.4 - 10.3 mg/dL [facility] EGFR 74 >59 mL/min/1.7 3m2 [facility] Comment:If patient is black, multiply result by 1.159. Estimated glomerular filtration rate calculated using the CKD-EPI equation. ANION GAP 18 10 - 20 mmol/L [facility] Blood 01/05/2018 4:50 AM EDT 01/05/2018 7:59 AM EDT us Jose Becerra MD LAB BLOOD BKR ORDERABLES Final R esult [facility] [address] [place] [address] * (ABNORMAL) CBC and differential (01/05/2018 4:50 AM EDT) WBC 6.56 3.40 - 11.20 K/uL [facility] RBC 4.14 3.80 - 4.80 M/uL [facility] HGB 11.1(L) 12.0 - 15.0 g/dL [facility] HCT 34.1(L) 36.0 - 46.0 % [facility] PLT 222 130 - 400 K/uL [facility] MCV 82.4 79.0 - 98.0 fL [facility] MCH 26.8(L) 27.0 - 34.8 pg [facility] MCHC 32.6 31.5 - 36.0 g/dL [facility] RDW 15.1(H) 10.8 - 14.6 % [facility] MPV 10.3 9.4 - 12.4 fl [facility] NRBC 0.00 /100 WBCs [facility] ABSOLUTE NRBC 0.00 K/uL [facility] DIFF METHOD Auto [facility] NEUTS 61.3 45.30 - 77.70 % [facility] LYMPHS 23.3 12.30 - 39.70 % [facility] MONOS 10.2 4.10 - 12.80 % [facility] EOS 4.4 0 - 7.2 % [facility] BASOS 0.5 0 - 2.80 % [facility] Granulocytes, immature (%) 0.3 0.0 - 0.9 % [facility] ABSOLUTE NEUTS 4.02 1.40 - 7.70 K/uL [facility] ABSOLUTE LYMPHS 1.53 0.60 - 3.20 K/uL [facility] ABSOLUTE MONOS 0.67(H) 0.11 - 0.59 K/uL [facility] ABSOLUTE EOS 0.29 0.01 - 0.50 K/uL [facility] ABSOLUTE BASOS 0.03 0.00 - 0.08 K/uL [facility] Granulocytes, immature 0.02 0.00 - 0.05 K/uL [facility] Blood 01/05/2018 4:50 AM EDT 01/05/2018 7:59 AM EDT us Jose Becerra MD LAB BLOOD BKR ORDERABLES Final R esult [facility] [address] [place] [address] documented in this encounter Visit Diagnoses Diagnosis [...] documented as of this encounter Care Teams Dice Table Person Relationship Specialty Start Date End Date Julia Callahan DO [address] [place] [address] PCP - General 05/11/17 03/22/18 Pcp, Not Required [address] [place] [address] PCP - General 03/23/18 08/06/18 Mariajose Smallwood FNP [address] [place] [address] 7 [place] [address] PCP - General Family Medicine 08/07/18 08/09/18 Jose Becerra MD [address] [place] [address] 7 [place] [address] PCP - General Family Medicine 08/10/18 12/03/18 Mariajose Smallwood FNP [address] [place] [address] 7 [place] [address] PCP - General Family Medicine 12/04/18 01/09/19 Dyan Matias, MERT [address] [place] [address] PCP - General Internal Medicine 01/10/19 09/13/20 Cliff Walsh MD [address] [place] [address] PCP - General Internal Medicine 09/14/20 Julia Callahan DO [address] [place] [address] 03/23/18 08/06/18 Mariajose Smallwood FNP [address] [place] [address] 7 [place] [address] [email or web address] Medicine 08/10/18 12/03/18 Pcp, Not Required [address] [place] [address] 08/07/18 08/09/18 Jose Becerra MD [address] [place] [address] 7 [place] [address] [email or web address] Family Medicine 12/04/18 Letitia Odom MD [address] [place] [address] [email or web address] Insurance Assigned Provider 10/30/19 10/31/20 Chinyere Reilly MD [address] [place] [address], [address] [place] [address] Consulting Provider Geriatric Medicine 03/20/20 03/26/22 Marjorie Pappas NP [address] [place] [address] [email or web address] Nurse Practitioner Oncology 09/11/20 Cliff Walsh MD [address] [place] [address], 2nd [place] [address] [email or web address] Insurance Assigned Provider 10/28/23 Chinyere Barajas, RN [address] [place] [address] [email or web address] [facility] Hearing Care Professional 09/27/21 11/07/21 documented as of this encounter Additional Source Comments The information contained in this document represents components of the legal health record. It is not the complete legal health record.[facility]
--- OUTSIDE RECORDS SUMMARY | 2025-06-25 22:17 | XMS_ITS | Encounter Summary ---
Author Organization [facility] Address [address] [facility] [address] [place] [address] Phone Care Team Providers Care Impregnator And Drier Helper Name Role Phone Jose Becerra MD Unavailable Chinyere Reilly MD Unavailable [phone] Marjorie Pappas AIR CARGO SPECIALIST Unavailable [phone] Cliff Walsh MD Primary Care Provider Cliff Walsh MD Unavailable [phone] Encounter Details Date Type Department Care Team (Late st Contact Info) Description 11/27/2021 Procedure Pass [facility] Echo Lab [address] [place] [address] Social History Tobacco Use Types Packs/Day Years [...] 2:30 AM EDT Mary Black RN * [place]ke Suicide Severity Rating Scale (Screener/Recent Self-Report) Question Answer Date of Assessment Author 6. Suicidal Behavior (Lifetime) No 2:30 AM EDT Mary Black RN documented as of this encounter Plan of Treatment Upcoming Encounters Date Type Department Care Team (Late st Contact Info) Description 10/14/2024 Procedure Pass Echo Lab [address] [place] [address] 07/01/2025 2:00 PM EST Office Visit [facility] [address] [place] [address] Cliff Walsh MD [address] [place] [address], 2nd [place] [address] 10/01/2025 11:20 AM EDT Office Visit [facility] [address] [place] [address] [place] [address] Wen Parikh MD [address] [place] [address] 3rd [place] [address] 10/07/2025 12:45 PM EDT Appointment Echo Lab [address] [place] [address] Eliseo Jacobs DO [address] [place] [address] [place] [address] 10/21/2025 12:30 PM EDT Office Visit [facility] [address] [place] [address] 3rd [facility], [address] [place] [address] Eliseo Jacobs DO [address] [place] [address] [place] [address] documented as of this encounter Visit Diagnoses [...] documented as of this encounter Care Teams Impregnator And Drier Helper Relationship Specialty Start Date End Date Cliff Walsh MD [address] [place] [address] PCP - General Internal Medicine 09/14/20 Jose Becerra MD Family Medicine 12/04/18 Chinyere Reilly MD Consulting Provider Geriatric Medicine 03/20/20 03/26/22 Marjorie Pappas NP [address] [place] [address] Nurse Practitioner Oncology 09/11/20 Cliff Walsh MD [address] [place] [address] [email or web address] Insurance Assigned Provider 10/28/23 documented as of this encounter Additional Source Comments The information contained in this document represents components of the legal health record. It is not the complete legal health record.[facility]
--- OUTSIDE RECORDS SUMMARY | 2025-06-25 22:17 | XMS_ITS | Encounter Summary ---
Author Organization [facility] Address [address] [facility] [address] [place] [address] Phone Care Team Providers Care Termite Exterminator Name Role Phone Julia Callahan DO Primary Care Provider Pcp, Not Required Primary Care Provider Unavaila ble Mariajose Smallwood [facility] Primary Care Provider Jose Becerra MD Primary Care Provider [phone] Mariajose Smallwood [facility] Primary Care Provider [phone] Dyan Matias donor recruiter Provider [phone] Julia Callahan DO Unavailable [phone] Mariajose Smallwood [facility] Unavailable [phone] Pcp, Not Required Unavailable Unavailable Jose Becerra MD Unavailable Letitia Odom MD Unavailable [phone] Chinyere Reilly MD Unavailable [phone] Marjorie Pappas FORESTRY BIOLOGY SPECIALIST Unavailable [phone] Cliff Walsh MD Primary Care Provider [phone] Cliff Walsh MD Unavailable [phone] Chinyere Barajas RN Unavailable [phone] Encounter Details Date Type Department Care Team (Latest Contact Info) Description 02/02/2018 Transcribe Orders [facility] Specimen Processing 30 [place] [address] Jose Becerra MD 38 [facility], [address] [place] [address] Gastrointestinal hemorrhage associated with peptic ulcer (Primary Dx); Hyperkalemia Social History Tobacco Use Types Packs/Day Years [...] Info) Description 10/14/2024 Procedure Pass Echo Lab [address] [place] [address] 07/01/2025 2:00 PM EST Office Visit [facility] [address] [place] [address] [place] [address] Cliff Walsh MD [address] [place] [address] 10/01/2025 11:20 AM EDT Office Visit [facility] [address] [place] [address] [place] [address] Wen Parikh MD [address] [place] [address] 10/07/2025 12:45 PM EDT Appointment Echo Lab [facility] [place], [place] [phone] Eliseo Jacobs, DO 22 [facility] [address] [place] [address] 10/21/2025 12:30 PM EDT Office Visit [facility] [address] Floor, [address] [place] [address] Eliseo Jacobs, DO 22 [facility] [address] [place] [address] [email or web address] documented as of this encounter Results * (ABNORMAL) Basic metabolic panel (02/02/2018 5:55 AM EDT) SODIUM 146 133 - 146 mmol/L [facility] CHLORIDE 108 96 - 108 mmol/L [facility] POTASSIUM 4.7 3.3 - 5.1 mmol/L [facility] CO2 27 21 - 35 mmol/L [facility] BUN 14 6 - 19 mg/dL [facility] CREATININE 0.90 0.5 - 1.5 mg/dL [facility] GLUCOSE 125(H) 70 - 99 mg/dL [facility] CALCIUM 9.0 8.4 - 10.3 mg/dL [facility] EGFR 64 >59 mL/min/1.7 3m2 [facility] Comment:If patient is black, multiply result by 1.159. Estimated glomerular filtration rate calculated using the CKD-EPI equation. ANION GAP 16 10 - 20 mmol/L [facility] Blood 02/02/2018 5:55 AM EDT 02/02/2018 8:02 AM EDT us Jose Becerra MD LAB BLOOD BKR ORDERABLES Final R esult [facility] 30 [place] [address] * (ABNORMAL) CBC and differential (02/02/2018 5:55 AM EDT) WBC 5.82 3.40 - 11.20 K/uL [facility] RBC 4.26 3.80 - 4.80 M/uL [facility] HGB 11.4(L) 12.0 - 15.0 g/dL [facility] HCT 35.3(L) 36.0 - 46.0 % [facility] PLT 227 130 - 400 K/uL [facility] MCV 82.9 79.0 - 98.0 fL [facility] MCH 26.8(L) 27.0 - 34.8 pg [facility] MCHC 32.3 31.5 - 36.0 g/dL [facility] RDW 15.9(H) 10.8 - 14.6 % [facility] MPV 10.7 9.4 - 12.4 fl [facility] NRBC 0.00 /100 WBCs [facility] ABSOLUTE NRBC 0.00 K/uL [facility] DIFF METHOD Auto [facility] NEUTS 53.4 45.30 - 77.70 % [facility] LYMPHS 31.4 12.30 - 39.70 % [facility] MONOS 11.0 4.10 - 12.80 % [facility] EOS 3.6 0 - 7.2 % [facility] BASOS 0.3 0 - 2.80 % [facility] Granulocytes, immature (%) 0.3 0.0 - 0.9 % [facility] ABSOLUTE NEUTS 3.10 1.40 - 7.70 K/uL [facility] ABSOLUTE LYMPHS 1.83 0.60 - 3.20 K/uL [facility] ABSOLUTE MONOS 0.64(H) 0.11 - 0.59 K/uL [facility] ABSOLUTE EOS 0.21 0.01 - 0.50 K/uL [facility] ABSOLUTE BASOS 0.02 0.00 - 0.08 K/uL [facility] Granulocytes, immature 0.02 0.00 - 0.05 K/uL [facility] Blood 02/02/2018 5:55 AM EDT 02/02/2018 8:02 AM EDT Jose Becerra MD LAB BLOOD BKR ORDERABLES Final R esult [facility] [address] [place] [address] documented in this encounter Visit Diagnoses Diagnosis Gastrointestinal hemorrhage associated with peptic ulcer- Primary Hyperkalemia Hyperpotassemia documented in this encounter Additional Health Concerns Infection Onset Date Last Indicated Resolved Time CoV-Risk Comment:Negative 04/2604/23/2020 04/26/2020 04/28/2020 2:27 PM EDT CoV-Risk Comment:Per Ambulatory Triage Form 08/05/2021 08/05/202108/15 1:23 AM EST CoV-Risk Comment:Per note documentation 11/26/2021 11/26/2021 8:25 PM EDT 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 11/27/2021 11/27/2023 1:22 AM EDT documented as of this encounter Care Teams Termite Exterminator Relationship Specialty Start Date End Date Julia Callahan DO [address] [place] [address] PCP - General 05/11/17 03/22/18 Pcp, Not Required [address] [place] [address] PCP - General 03/23/18 08/06/18 Mariajose Smallwood FNP [address] [place] [address] 7 [place] [address] [email or web address] PCP - General Family Medicine 08/07/18 08/09/18 Jose Becerra MD [address] [place] [address] 7 [place] [address] PCP - General Family Medicine 08/10/18 12/03/18 Mariajose Smallwood FNP [address] [place] [address] 7 [place] [address] [email or web address] PCP - General Family Medicine 12/04/18 01/09/19 Dyan Matias RN [address] [place] [address] PCP - General Internal Medicine 01/10/19 09/13/20 Cliff Walsh MD [address] [place] [address] [email or web address] PCP - General Internal Medicine 09/14/20 Julia Callahan DO [address] [place] [address] 03/23/18 08/06/18 Mariajose Smallwood FNP [address] [place] [address] 7 [place] [address] [email or web address] Medicine 08/10/18 12/03/18 Pcp, Not Required [address] [place] [address] 08/07/18 08/09/18 Jose Becerra MD [address] [place] [address] 7 [place] [address] [email or web address] Family Medicine 12/04/18 Letitia Odom MD [address] [place] [address] [email or web address] Insurance Assigned Provider 10/30/19 10/31/20 Chinyere Reilly MD [address] [place] [address] [email or web address] Consulting Provider Geriatric Medicine 03/20/20 03/26/22 Marjorie Pappas NP [address] [place] [address] [email or web address] Nurse Practitioner Oncology 09/11/20 Cliff Walsh MD [address] [place] [address], 2nd [place] [address] [email or web address] Insurance Assigned Provider 10/28/23 Chinyere Barajas RN [address] [place], [place] [id number] [email or web address] [email or web address] Programmer 09/27/21 11/07/21 documented as of this encounter Additional Source Comments The information contained in this document represents components of the legal health record. It is not the complete legal health record.[facility]
--- OUTSIDE RECORDS SUMMARY | 2025-06-25 22:17 | XMS_ITS | Encounter Summary ---
Author Organization [facility] Address [address] [place] [address] Phone Care Team Providers Care Tandem Mill Operator Name Role Phone Jose Becerra MD Unavailable Marjorie Pappas HYDROMETER TESTER Unavailable [phone] Cliff Walsh MD Primary Care Provider Cliff Walsh MD Unavailable [phone] Encounter Details Date Type Department Care Team (Late st Contact Info) Description 06/18/2025 Orders Only [facility] Medicine [address] [place] [address] [place] [address] Unknown, Unknown, MD Social History Tobacco Use Types Packs/Day Years Used Date Smoking Tobacco: Former Cigarettes 1 - 2007 Smokeless Tobacco: Never Alcohol Use [...] Info) Description 10/14/2024 Procedure Pass Echo Lab [address] [place] [address] 07/01/2025 2:00 PM EST Office Visit [facility] [address] [place] [address] [place] [address] Cliff Walsh MD [address] [place] [address] 2[address] [place] [address] 10/01/2025 11:20 AM EDT Office Visit [facility] [address] [place] [address] [place] [address] Wen Parikh MD [address] [place] [address] 3rd [place] [address] 10/07/2025 12:45 PM EDT Appointment Echo Lab [address] [place] [address] Eliseo Jacobs DO [address] [place] [address] [place] [address] 10/21/2025 12:30 PM EDT Office Visit [facility] [address] [place] [address] 3rd Floor, [address] [place] [address] EmEliseo tobar, DO [address] [address] documented as of this encounter Procedures Procedure Name Priority Date/Time Associated Diagnosis Comments OUTSIDE IMAGING Routine 06/17/2025 8:25 AM EST documented in this encounter Results * Outside Imaging Report Only (06/17/2025 8:25 AM EST) us Unknown Unknown IMG XR CHEST Edited Result - Final documented in this encounter Visit Diagnoses Not on filedocumented in this encounter Additional Health Concerns Assessment Noted Time PHQ-9 Depression Total Score: 11 020 9:53 AM EST PHQ-2 Depression Total Score: 0 12/10/19 21 10:22 AM EDT documented as of this encounter Care Teams Tandem Mill Operator Relationship Specialty Start Date End Date Cliff Walsh MD [address] [place] [address] PCP - General Internal Medicine 09/14/20 Jose Becerra MD Family Medicine 12/04/18 Marjorie Pappas NP [address] [place] [address] Nurse Practitioner Oncology 09/11/20 Cliff Walsh MD [address] [place] [address] Insurance Assigned Provider 10/28/23 documented as of this encounter Additional Source Comments The information contained in this document represents components of the legal health record. It is not the complete legal health record.[facility]
--- OUTSIDE RECORDS SUMMARY | 2025-06-25 22:17 | XMS_ITS | Encounter Summary ---
Author Organization [facility] Address [address] [place] [address] Phone Care Team Providers Care Web Assistant Name Role Phone Jose Becerra MD Unavailable Marjorie Pappas GROUND SYSTEMS ENGINEER Unavailable [phone] Cliff Walsh MD Primary Care Provider Cliff Walsh MD Unavailable [phone] Reason for Visit * Reason Onset Date Comments TCM Visit 06/25/2025 Encounter Details Date Type Department Care Team (Late st Contact Info) Description 06/25/2025 Telephone [facility] [address] [place] [address] [place] [address] Cliff Walsh MD [address] [facility], 2nd Floor JOHANNY Haley [address] [email or web address] TCM Visit Social History Tobacco Use Types Packs/Day Years [...] as of this encounter Progress Notes * Santi Marcial - 06/25/2025 2:27 PM EST [facility] PEN Top Smart Phrases: Transitional Care Management New Patient: YES/NO: no Hospitalization Name: [facility] Discharge Date: 06/24 Reason for Visit+ Diagnosis: Kidney Stones and a UTI Is the discharge summary in patient chart:YES/NO: yes If not did you inform the patient/patient advocate to fax it to the office: Please inform the patient/patient advocate to fax and bring a copy to the appt. Appointment Date: 07/01 Is the appt: virtual in person: in person Awareness: Appt need to be schedule with in 2 to 14 calendar days from discharge date Additional Note (if applicable): [employer] Call Center CSS Agent (Please do not reply to this user, as this inbox is not monitored. Thank you.) Thank you. documented in this encounter Plan of Treatment Upcoming Encounters Date Type Department Care Team (Late st Contact Info) Description 10/14/2024 Procedure Pass [facility] [place] [address] [place] [address] 07/01/2025 2:00 PM EST Office Visit [facility] [address] [place] [address] [place] [address] Cliff Walsh MD [address] [place] [address] 10/01/2025 11:20 AM EDT Office Visit [facility] [address] [place] [address] [place] [address] Wen Parikh MD [address] [place] [address] 10/07/2025 12:45 PM EDT Appointment Echo Lab [address] [place] [address] Eliseo Jacobs, [address] [address] 10/21/2025 12:30 PM EDT Office Visit [facility] [address] [place] [address], [address] [place] [address] Eliseo Jacobs, [address] [address] documented as of this encounter Visit Diagnoses Not on filedocumented in this encounter Additional Health Concerns Assessment Noted Time PHQ-9 Depression Total Score: 11 020 9:53 AM EST PHQ-2 Depression Total Score: 0 12/10/19 21 10:22 AM EDT documented as of this encounter Care Teams Web Assistant Relationship Specialty Start Date End Date Cliff Walsh MD [address] [place] [address] PCP - General Internal Medicine 09/14/20 Jose Becerra MD [email or web address] Family Medicine 12/04/18 Marjorie Pappas NP [address] [place] [address] [email or web address] Nurse Practitioner Oncology 09/11/20 Cliff Walsh MD [address] [place] [address], 2nd [place] [address] [email or web address] Insurance Assigned Provider 10/28/23 documented as of this encounter Additional Source Comments The information contained in this document represents components of the legal health record. It is not the complete legal health record.[facility]
--- OUTSIDE RECORDS SUMMARY | 2025-06-25 22:17 | XMS_ITS | Encounter Summary ---
Author Organization [facility] Address [address] [facility] [address] [place] [address] Phone Care Team Providers Care Jinriksha Driver Name Role Phone Julia Callahan DO Primary Care Provider Pcp, Not Required Primary Care Provider Unavaila ble Mariajose Smallwood [facility] Primary Care Provider Jose Becerra MD Primary Care Provider [phone] Mariajose Smallwood [facility] Primary Care Provider Dyan Matias cart driver Provider [phone] Julia Callahan DO Unavailable [phone] Mariajose Smallwood [facility] Unavailable [phone] Pcp, Not Required Unavailable Unavailable Jose Becerra MD Unavailable Letitia Odom MD Unavailable [phone] Chinyere Reilly MD Unavailable [phone] Marjorie Pappas FAMILY RESOURCE MANAGEMENT PROFESSOR Unavailable [phone] Cliff Walsh MD Primary Care Provider [phone] Cliff Walsh MD Unavailable [phone] Chinyere Barajas RN Unavailable [phone] Encounter Details Date Type Department Care Team (Late Contact Info) Description 02/16/2018 Transcribe Orders [facility] Specimen Processing [address] [place] [address] Jose Becerra MD [address] [facility] [address], [address] [place] [address] Iron deficiency (Primary Dx); Iron deficiency anemia, unspecified iron deficiency anemia type; Type 2 diabetes mellitus with complication, unspecified whether alf insulin use Social History Tobacco Use Types Packs/Day Years [...] Info) Description 10/14/2024 Procedure Pass Echo Lab [address] [place] [address] 07/01/2025 2:00 PM EST Office Visit [facility] [address] [place] [address] [place] [address] Cliff Walsh MD [address] [place] [address] 2nd [place] [address] 10/01/2025 11:20 AM EDT Office Visit [facility] [address] [place] [address] [place] [address] Wen Parikh MD [address] [place] [address] 3rd [place] [address] 10/07/2025 12:45 PM EDT Appointment Echo Lab [place] [place] [address] Eliseo Jacobs, DO [address] [facility] [address] [place] [address] 10/21/2025 12:30 PM EDT Office Visit [facility] [address] [place] [address] Dr 3rd Floor, [address] [place], [place] [phone] Eliseo Jacobs, DO [address] [facility] [address] [place] [id number] [email or web address] documented as of this encounter Results * (ABNORMAL) Basic metabolic panel (02/16/2018 5:41 AM EDT) SODIUM 142 133 - 146 mmol/L [facility] CHLORIDE 104 96 - 108 mmol/L [facility] POTASSIUM 4.4 3.3 - 5.1 mmol/L [facility] CO2 27 21 - 35 mmol/L [facility] BUN 16 6 - 19 mg/dL [facility] CREATININE 0.80 0.5 - 1.5 mg/dL [facility] GLUCOSE 126(H) 70 - 99 mg/dL [facility] CALCIUM 8.8 8.4 - 10.3 mg/dL [facility] EGFR 74 >59 mL/min/1.7 3m2 [facility] Comment:If patient is black, multiply result by 1.159. Estimated glomerular filtration rate calculated using the CKD-EPI equation. ANION GAP 15 10 - 20 mmol/L [facility] Blood 02/16/2018 5:41 AM EDT 02/16/2018 7:45 AM EDT us Jose Becerra MD LAB BLOOD BKR ORDERABLES Final R esult [facility] [address] [place], [place] [id number] * (ABNORMAL) CBC (02/16/2018 5:41 AM EDT) WBC 6.69 3.40 - 11.20 K/uL [facility] RBC 4.27 3.80 - 4.80 M/uL [facility] HGB 11.5(L) 12.0 - 15.0 g/dL [facility] HCT 35.5(L) 36.0 - 46.0 % [facility] PLT 206 130 - 400 K/uL [facility] MCV 83.1 79.0 - 98.0 fL [facility] MCH 26.9(L) 27.0 - 34.8 pg [facility] MCHC 32.4 31.5 - 36.0 g/dL [facility] RDW 16.2(H) 10.8 - 14.6 % [facility] MPV 10.5 9.4 - 12.4 fl [facility] NRBC 0.00 /100 WBCs [facility] ABSOLUTE NRBC 0.00 K/uL [facility] Blood 02/16/2018 5:41 AM EDT 02/16/2018 7:45 AM EDT us Jose Becerra MD LAB BLOOD BKR ORDERABLES Final R esult [facility] [address] [place] [address] documented in this encounter Visit Diagnoses Diagnosis Iron deficiency- Primary Disorders of iron metabolism Iron deficiency anemia, unspecified iron deficiency anemia type Type 2 diabetes mellitus with complication, unspecified whether alf insulin use documented in this encounter Additional Health Concerns Infection Onset Date Last Indicated Resolved Time CoV-Risk Comment:Negative 04/2604/23/2020 04/26/2020 04/28/2020 2:27 PM EDT CoV-Risk Comment:Per Ambulatory Triage Form 08/05/2021 08/05/202108/15 1:23 AM EST CoV-Risk Comment:Per note documentation 11/26/2021 11/26/2021 8:25 PM EDT 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 11/27/2021 11/27/2023 1:22 AM EDT documented as of this encounter Care Teams Jinriksha Driver Relationship Specialty Start Date End Date Julia Callahan DO [address] [place] [address] PCP - General 05/11/17 03/22/18 Pcp, Not Required [address] [place] [address] PCP - General 03/23/18 08/06/18 Mariajose Smallwood FNP [address] [place] [address] 7 [place] [address] [email or web address] PCP - General Family Medicine 08/07/18 08/09/18 Jose Becerra MD [address] [place] [address] 7 [place] [address] [email or web address] PCP - General Family Medicine 08/10/18 12/03/18 Mariajose Smallwood FNP [address] [place] [address] 7 [place] [address] [email or web address] PCP - General Family Medicine 12/04/18 01/09/19 Dyan Matias RN [address] [place] [address] [email or web address] PCP - General Internal Medicine 01/10/19 09/13/20 Cliff Walsh MD [address] [place] [address], 2nd [place] [address] PCP - General Internal Medicine 09/14/20 Julia Callahan DO [address] [place] [address] 03/23/18 08/06/18 Mariajose Smallwood FNP [address] [place] [address] 7 [place] [address] Family Medicine 08/10/18 12/03/18 Pcp, Not Required [address] [place] [address] 08/07/18 08/09/18 Jose Becerra MD [address] [place] [address] 7 [place] [address] [email or web address] Family Medicine 12/04/18 Letitia Odom MD [address] [place] [address] [email or web address] Insurance Assigned Provider 10/30/19 10/31/20 Chinyere Reilly MD [address] [place] [address] Consulting Provider Geriatric Medicine 03/20/20 03/26/22 Marjorie Pappas NP [address] [place] [address] Nurse Practitioner Oncology 09/11/20 Cliff Walsh MD [address] [place] [address] Insurance Assigned Provider 10/28/23 Chinyere Barajas RN [address] [place] [address] [email or web address] PHCM Flight Manager 09/27/21 11/07/21 documented as of this encounter Additional Source Comments The information contained in this document represents components of the legal health record. It is not the complete legal health record.[facility]
--- OUTSIDE RECORDS SUMMARY | 2025-06-25 22:17 | XMS_ITS | Encounter Summary ---
Author Organization [facility] Address [address] [place] [address] Phone Care Team Providers Care Greige Goods Examiner Name Role Phone Dyan Matias RNbiller Provider [phone] Jose Becerra MD Unavailable Letitia Odom MD Unavailable [phone] Chinyere Reilly MD Unavailable Marjorie Pappas GAS CUTTER Unavailable [phone] Cliff Walsh MD Primary Care Provider Cliff Walsh MD Unavailable [phone] Chinyere Baarjas RN Unavailable [phone] Encounter Details Date Type Department Care Team (Late st Contact Info) Description 08/21/2020 Procedure Pass [facility] - [address] [place] [address] Social History Tobacco Use Types Packs/Day Years [...] Info) Description 10/14/2024 Procedure Pass Echo Lab [address] [place] [address] 07/01/2025 2:00 PM EST Office Visit [facility] [address] [place] [address] Cliff Walsh MD [address] [place] [address] 2nd [place] [address] 10/01/2025 11:20 AM EDT Office Visit [facility] [address] [place] [address] [place] [address] Wen Parikh MD [address] [place] [address] 10/07/2025 12:45 PM EDT Appointment Echo Lab [address] [place] [address] Eliseo Jacobs [address] [address] 10/21/2025 12:30 PM EDT Office Visit [facility] [address] [place] [address], [address] [address] Eliseo Jacobs [address] [address] documented as of this encounter Visit Diagnoses Not on filedocumented in this encounter Additional Health Concerns Infection Onset Date Last Indicated Resolved Time CoV-Risk Comment:Per Ambulatory Triage Form 08/05/2021 08/05/202108/15 1:23 AM EST CoV-Risk Comment:Per note documentation 11/26/2021 11/26/2021 8:25 PM EDT 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 11/27/2021 11/27/2023 1:22 AM EDT Assessment Noted Time PHQ-9 Depression Total Score: 11 020 9:53 AM EST PHQ-2 Depression Total Score: 4 06/01/20 20 9:53 AM EST documented as of this encounter Care Teams Greige Goods Examiner Relationship Specialty Start Date End Date Dyan Matias RN [address] [place] [address] [email or web address] PCP - General Internal Medicine 01/10/19 09/13/20 Cliff Walsh MD [address] [place] [address] PCP - General Internal Medicine 09/14/20 Jose Becerra MD [address] [place] [address] Family Medicine 12/04/18 Letitia Odom MD [address] [place] [address] Insurance Assigned Provider 10/30/19 10/31/20 Chinyere Reilly MD [address] [place] [address] Consulting Provider Geriatric Medicine 03/20/20 03/26/22 Marjorie Pappas, GAS CUTTER [address] [place] [address] Nurse Practitioner Oncology 09/11/20 Cliff Walsh MD [address] [place] [address], 2nd [place] [address] Insurance Assigned Provider 10/28/23 Chinyere Barajas, RN [address] [place] [address] [email or web address] PHCM Plastic Outfitter 09/27/21 11/07/21 documented as of this encounter Additional Source Comments The information contained in this document represents components of the legal health record. It is not the complete legal health record.[facility]
--- OUTSIDE RECORDS SUMMARY | 2025-06-25 22:17 | XMS_ITS | Encounter Summary ---
Author Organization [facility] Address [address] [facility] [address] [place] [address] Phone Care Team Providers Care Refrigeration Person Name Role Phone Julia Callahan DO Primary Care Provider Pcp, Not Required Primary Care Provider Unavaila ble Mariajose Smallwood [facility] Primary Care Provider [phone] Jose Becerra MD Primary Care Provider [phone] Mariajose Smallwood [facility] Primary Care Provider [phone] Dyan Matias economics instructor Provider [phone] Julia Callahan DO Unavailable [phone] Mariajose Smallwood [facility] Unavailable [phone] Pcp, Not Required Unavailable Unavailable Jose Becerra MD Unavailable Letitia Odom MD Unavailable [phone] Chinyere Reilly MD Unavailable [phone] Marjorie Pappas LEADITE WORKER Unavailable Cliff Walsh MD Primary Care Provider [phone] Cliff Walsh MD Unavailable [phone] Chinyere Barajas RN Unavailable [phone] Reason for Referral * Physical Therapy (Routine) - Closed Specialty Diagnoses / Procedures Referred By Contzhen t Referred To Contact Physical Therapy Diagnoses Encounter for rehabilitation Julia Callahan DO Phone: tel: fax: [email or web address] [facility] [address] [place] [address] Phone: tel: fax: Referral ID Status Reason Start Date Expiration Date Visits Re quested Visits Authorized [id number] Closed 06/07/2017 07/23/2018 99 [phone] Encounter Details Date Type Department Care Team (Latest Contact Info) Description 06/09/2017 Transcribe Orders [facility] [address] [place] [address] Oralia Osborne [address] [place] [address] [email or web address] Encounter for rehabilitation (Primary Dx) Social History Tobacco Use Types Packs/Day Years Used Date Smoking Tobacco: Never Assessed Comments Unknown Sex and Gender Information Value Date Recorded Sex Assigned at Female 11/16/2017 5:42 PM EDT Legal Sex Female 10:08 PM EDT Gender Identity Female 11/16/2017 5:42 PM EDT Sexual Orientation Straight 11/16/2017 5: 42 PM EDT documented as of this encounter Plan of Treatment Upcoming Encounters Date Type Department Care Team (Late st Contact Info) Description 10/14/2024 Procedure Pass Echo Lab [place] [place] [address] 07/01/2025 2:00 PM EST Office Visit [facility] [address] [place] [address] [place] [address] Cliff Walsh MD [address] [place] [address], [address]nd [place] [address] 10/01/2025 11:20 AM EDT Office Visit [facility] [address] [place] [address] Wen Parikh MD [address] [place] [address] 10/07/2025 12:45 PM EDT Appointment Echo Lab [address] [place] [address] Eliseo Jacobs DO [address] [place] [address] [place] [address] 10/21/2025 12:30 PM EDT Office Visit [facility] [address] [place] [address], [address] [place] [address] Eliseo Jacobs DO [address] [place] [address] Scheduled Referrals Name Type Priority Associated Diagnoses Orde r Schedule Ambulatory referral to [facility] Physical Therapy Outpatient Referral Routine Encounter for rehabilitation Ordered: 06/09/2017 documented as of this encounter Visit Diagnoses Diagnosis Encounter for [...] documented as of this encounter Care Teams Refrigeration Person Relationship Specialty Start Date End Date Julia Callahan DO [address] [place] [address] PCP - General 05/11/17 03/22/18 Pcp, Not Required [address] [place] [address] PCP - General 03/23/18 08/06/18 Mariajose Smallwood FNP [address] [place] [address] [email or web address] PCP - General Family Medicine 08/07/18 08/09/18 Jose Becerra MD [address] [place] [address] [email or web address] PCP - General Family Medicine 08/10/18 12/03/18 Mariajose Smallwood FNP [address] [place] [address] 7 [place] [address] PCP - General Family Medicine 12/04/18 01/09/19 Dyan Matias RN [address] [place] [address] PCP - General Internal Medicine 01/10/19 09/13/20 Cliff Walsh MD [address] [place] [address], 2nd [place] [address] PCP - General Internal Medicine 09/14/20 Julia Callahan DO [address] [place] [address] 03/23/18 08/06/18 Mariajose Smallwood FNP [address] [place] [address] [place] [address] Family Medicine 08/10/18 12/03/18 Pcp, Not Required [address] [place] [address] 08/07/18 08/09/18 Jose Becerra MD [address] [place] [address] 7 [place] [address] Family Medicine 12/04/18 Letitia Odom MD [address] [place] [address] Insurance Assigned Provider 10/30/19 10/31/20 Chinyere Reilly MD [address] [place] [address] Consulting Provider Geriatric Medicine 03/20/20 03/26/22 Marjorie Pappas NP [address] [place] [address] Nurse Practitioner Oncology 09/11/20 Cliff Walsh MD [address] [place] [address] Insurance Assigned Provider 10/28/23 Chinyere Barajas RN [address] [place] [address] PHCM Television Picture Tube Rebuilder 09/27/21 11/07/21 documented as of this encounter Additional Source Comments The information contained in this document represents components of the legal health record. It is not the complete legal health record.[facility]
--- OUTSIDE RECORDS SUMMARY | 2025-06-25 22:17 | XMS_ITS | Encounter Summary ---
Author Organization [facility] Address [address] [facility] [address] [place] [address] Phone Care Team Providers Care Industrial Hygiene Manager Name Role Phone Julia Callahan DO Primary Care Provider Pcp, Not Required Primary Care Provider Unavaila ble Mariajose Smallwood [facility] Primary Care Provider Jose Becerra MD Primary Care Provider [phone] Mariajose Smallwood [facility] Primary Care Provider Dyan Matias pole tester Provider [phone] Julia Callahan DO Unavailable [phone] Mariajose Smallwood [facility] Unavailable [phone] Pcp, Not Required Unavailable Unavailable Jose Becerra MD Unavailable Letitia Odom MD Unavailable [phone] Chinyere Reilly MD Unavailable [phone] Marjorie Pappas POWER SHOVEL OPERATOR Unavailable [phone] Cliff Walsh MD Primary Care Provider [phone] Cliff Walsh MD Unavailable [phone] Chinyere Barajas RN Unavailable [phone] Encounter Details Date Type Department Care Team (Latest Contact Info) Description 01/12/2018 Transcribe Orders [facility] Specimen Processing 30 [place] [address] Jose Becerra MD [address] [facility], [address] [place] [address] Cerebrovascular accident (CVA), unspecified mechanism (Primary Dx) [...] Info) Description 10/14/2024 Procedure Pass Echo Lab [address] [place] [address] 07/01/2025 2:00 PM EST Office Visit [facility] [address] [place] [address] [place] [address] Cliff Walsh MD [address] [place] [address] 10/01/2025 11:20 AM EDT Office Visit [facility] [address] [place] [address] [place] [address] Wen Parikh MD [address] [place] [address] 10/07/2025 12:45 PM EDT Appointment Echo Lab [place] [place] [address] Eliseo Jacobs, DO [address] [facility] [address] [place] [address] 10/21/2025 12:30 PM EDT Office Visit [facility] [address] [place] [address] Dr 3rd Floor, [address] [place] [address] Eliseo Jacobs, DO [address] [facility] [address] [place] [address] [email or web address] documented as of this encounter Results * (ABNORMAL) Basic metabolic panel (01/12/2018 5:00 AM EDT) SODIUM 145 133 - 146 mmol/L [facility] CHLORIDE 104 96 - 108 mmol/L [facility] POTASSIUM 4.3 3.3 - 5.1 mmol/L [facility] CO2 28 21 - 35 mmol/L [facility] BUN 10 6 - 19 mg/dL [facility] CREATININE 0.80 0.5 - 1.5 mg/dL [facility] GLUCOSE 105(H) 70 - 99 mg/dL [facility] CALCIUM 8.7 8.4 - 10.3 mg/dL [facility] EGFR 74 >59 mL/min/1.7 3m2 [facility] Comment:If patient is black, multiply result by 1.159. Estimated glomerular filtration rate calculated using the CKD-EPI equation. ANION GAP 17 10 - 20 mmol/L [facility] Blood 01/12/2018 5:00 AM EDT 01/12/2018 7:29 AM EDT us Jose Becerra MD LAB BLOOD BKR ORDERABLES Final R esult [facility] [address] [place] [address] * (ABNORMAL) CBC and differential (01/12/2018 5:00 AM EDT) WBC 6.47 3.40 - 11.20 K/uL [facility] RBC 4.19 3.80 - 4.80 M/uL [facility] HGB 11.1(L) 12.0 - 15.0 g/dL [facility] HCT 34.6(L) 36.0 - 46.0 % [facility] PLT 232 130 - 400 K/uL [facility] MCV 82.6 79.0 - 98.0 fL [facility] MCH 26.5(L) 27.0 - 34.8 pg [facility] MCHC 32.1 31.5 - 36.0 g/dL [facility] RDW 15.2(H) 10.8 - 14.6 % [facility] MPV 10.4 9.4 - 12.4 fl [facility] NRBC 0.00 /100 WBCs [facility] ABSOLUTE NRBC 0.00 K/uL [facility] DIFF METHOD Auto [facility] NEUTS 56.1 45.30 - 77.70 % [facility] LYMPHS 27.2 12.30 - 39.70 % [facility] MONOS 11.7 4.10 - 12.80 % [facility] EOS 4.2 0 - 7.2 % [facility] BASOS 0.5 0 - 2.80 % [facility] Granulocytes, immature (%) 0.3 0.0 - 0.9 % [facility] ABSOLUTE NEUTS 3.63 1.40 - 7.70 K/uL [facility] ABSOLUTE LYMPHS 1.76 0.60 - 3.20 K/uL [facility] ABSOLUTE MONOS 0.76(H) 0.11 - 0.59 K/uL [facility] ABSOLUTE EOS 0.27 0.01 - 0.50 K/uL [facility] ABSOLUTE BASOS 0.03 0.00 - 0.08 K/uL [facility] Granulocytes, immature 0.02 0.00 - 0.05 K/uL [facility] Blood 01/12/2018 5:00 AM EDT 01/12/2018 7:29 AM EDT us Jose Becerra MD LAB BLOOD BKR ORDERABLES Final R esult [facility] [address] [place] [address] documented in this encounter Visit Diagnoses Diagnosis [...] documented as of this encounter Care Teams Industrial Hygiene Manager Relationship Specialty Start Date End Date Julia Callahan DO [address] [place] [address] PCP - General 05/11/17 03/22/18 Pcp, Not Required [address] [place] [address] PCP - General 03/23/18 08/06/18 Mariajose Smallwood FNP [address] [place] [address] 7 [place] [address] PCP - General Family Medicine 08/07/18 08/09/18 Jose Becerra MD [address] [place] [address] 7 [place] [address] PCP - General Family Medicine 08/10/18 12/03/18 Mariajose Smallwood FNP [address] [place] [address] 7 [place] [address] [email or web address] PCP - General Family Medicine 12/04/18 01/09/19 Dyan Matias RN [address] [place] [address] [email or web address] PCP - General Internal Medicine 01/10/19 09/13/20 Cliff Walsh MD [address] [place] [address] PCP - General Internal Medicine 09/14/20 Julia Callahan DO [address] [place] [address] 03/23/18 08/06/18 Mariajose Smallwood FNP [address] [place] [address] 7 [place] [address] [email or web address] Family Medicine 08/10/18 12/03/18 Pcp, Not Required [address] [place] [address] 08/07/18 08/09/18 Jose Becerra MD [address] [place] [address] 7 [place] [address] [email or web address] Family Medicine 12/04/18 Letitia Odom MD [address] [place] [address] [email or web address] Insurance Assigned Provider 10/30/19 10/31/20 Chinyere Reilly MD [address] [place] [address] [email or web address] Consulting Provider Geriatric Medicine 03/20/20 03/26/22 Marjorie Pappas NP [address] [place] [address] [email or web address] Nurse Practitioner Oncology 09/11/20 Cliff Walsh MD [address] [place] [address], 2nd [place] [address] [email or web address] Insurance Assigned Provider 10/28/23 Chinyere Barajas, RN [address] [place] [address] [email or web address] [facility] Fitness Centre Manager 09/27/21 11/07/21 documented as of this encounter Additional Source Comments The information contained in this document represents components of the legal health record. It is not the complete legal health record.[facility]
--- OUTSIDE RECORDS SUMMARY | 2025-06-25 22:17 | XMS_ITS | Encounter Summary ---
Author Organization [facility] Address [address] [facility] [address] [place] [address] Phone Care Team Providers Care Videotape Operator Name Role Phone Julia Callahan DO Primary Care Provider [phone] Pcp, Not Required Primary Care Provider Unavaila ble Mariajose Smallwood [facility] Primary Care Provider [phone] Jose Becerra MD Primary Care Provider [phone] Mariajose Smallwood [facility] Primary Care Provider [phone] Dyan Matias attorney general Provider [phone] Julia Callahan DO Unavailable [phone] Mariajose Smallwood [facility] Unavailable [phone] Pcp, Not Required Unavailable Unavailable Jose Becerra MD Unavailable Letitia Odom MD Unavailable [phone] Chinyere Reilly MD Unavailable [phone] Marjorie Pappas MANAGER CONVENTION Unavailable [phone] Cliff Walsh MD Primary Care Provider [phone] Cilff Walsh MD Unavailable [phone] Chinyere Barajas RN Unavailable [phone] Encounter Details Date Type Department Care Team (Late Contact Info) Description 02/09/2018 Transcribe Orders [facility] Specimen Processing 30 [place] [address] Jose Becerra MD [address] [facility] [place] [address] Iron deficiency anemia, unspecified iron deficiency anemia type (Primary Dx) Social History Tobacco Use [...] Info) Description 10/14/2024 Procedure Pass Echo Lab [place] [place] [address] 07/01/2025 2:00 PM EST Office Visit [facility] [address] [place] [address] [place] [address] Cliff Walsh MD [address] [place] [address] 10/01/2025 11:20 AM EDT Office Visit [facility] [address] [place] [address] [place] [address] Wen Parikh MD [address] [place] [address] 10/07/2025 12:45 PM EDT Appointment Echo Lab [place] [address] [place], [place] [address] Eliseo Jacobs, DO [address] [facility] [address] [place] [address] [phone] 10/21/2025 12:30 PM EDT Office Visit [facility] [address] Floor, [address] [place], [place] [address] Eliseo Jacobs, DO [address] [facility] [address] [place] [address] [phone] [email or web address] documented as of this encounter Results * (ABNORMAL) Basic metabolic panel (02/09/2018 5:38 AM EDT) SODIUM 140 133 - 146 mmol/L [facility] CHLORIDE 102 96 - 108 mmol/L [facility] POTASSIUM 4.3 3.3 - 5.1 mmol/L [facility] CO2 27 21 - 35 mmol/L [facility] BUN 15 6 - 19 mg/dL [facility] CREATININE 0.80 0.5 - 1.5 mg/dL [facility] GLUCOSE 118(H) 70 - 99 mg/dL [facility] CALCIUM 8.9 8.4 - 10.3 mg/dL [facility] EGFR 74 >59 mL/min/1.7 3m2 [facility] Comment:If patient is black, multiply result by 1.159. Estimated glomerular filtration rate calculated using the CKD-EPI equation. ANION GAP 15 10 - 20 mmol/L [facility] Blood 02/09/2018 5:38 AM EDT 02/09/2018 7:12 AM EDT us Jose Becerra MD LAB BLOOD BKR ORDERABLES Final R esult [facility] [address] [place] [address] * (ABNORMAL) CBC (02/09/2018 5:38 AM EDT) WBC 5.41 3.40 - 11.20 K/uL [facility] RBC 4.19 3.80 - 4.80 M/uL [facility] HGB 11.2(L) 12.0 - 15.0 g/dL [facility] HCT 34.7(L) 36.0 - 46.0 % [facility] PLT 209 130 - 400 K/uL [facility] MCV 82.8 79.0 - 98.0 fL [facility] MCH 26.7(L) 27.0 - 34.8 pg [facility] MCHC 32.3 31.5 - 36.0 g/dL [facility] RDW 16.0(H) 10.8 - 14.6 % [facility] MPV 10.4 9.4 - 12.4 fl [facility] NRBC 0.00 /100 WBCs [facility] ABSOLUTE NRBC 0.00 K/uL [facility] Blood 02/09/2018 5:38 AM EDT 02/09/2018 7:12 AM EDT us Jose Becerra MD LAB BLOOD BKR ORDERABLES Final R esult Performing Organization Address City/State/[facility] Co de Phone Number [address] [address] documented in this encounter Visit Diagnoses Diagnosis Iron deficiency anemia, unspecified iron deficiency anemia type- Primary documented in this encounter Additional Health Concerns Infection Onset Date Last Indicated Resolved Time CoV-Risk Comment:Negative 04/2604/23/2020 04/26/2020 04/28/2020 2:27 PM EDT CoV-Risk Comment:Per Ambulatory Triage Form 08/05/2021 08/05/202108/15 1:23 AM EST CoV-Risk Comment:Per note documentation 11/26/2021 11/26/2021 8:25 PM EDT 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 11/27/2021 11/27/2023 1:22 AM EDT documented as of this encounter Care Teams Videotape Operator Relationship Specialty Start Date End Date Julia Callahan DO [address] [place] [address] PCP - General 05/11/17 03/22/18 Pcp, Not Required [address] [place] [address] PCP - General 03/23/18 08/06/18 Mariajose Smallwood FNP [address] [place] [address] 7 [place] [address] [email or web address] PCP - General Family Medicine 08/07/18 08/09/18 Jose Becerra MD [address] [place] [address] [email or web address] PCP - General Family Medicine 08/10/18 12/03/18 Mariajose Smallwood FNP [address] [place] [address] PCP - General Family Medicine 12/04/18 01/09/19 Dyan Matias RN [address] [place] [address] PCP - General Internal Medicine 01/10/19 09/13/20 Cliff Walsh MD [address] [place] [address], 2nd [place] [address] PCP - General Internal Medicine 09/14/20 Julia Callahan DO [address] [place] [address] 03/23/18 08/06/18 Mariajose Smallwood FNP [address] [place] [address] 7 [place] [address] [email or web address] Family Medicine 08/10/18 12/03/18 Pcp, Not Required [address] [place] [address] 08/07/18 08/09/18 Jose Becerra MD [address] [place] [address] 7 [place] [address] Family Medicine 12/04/18 Letitia Odom MD [address] [place] [address] [email or web address] Insurance Assigned Provider 10/30/19 10/31/20 Chinyere Reilly MD [address] [place] [address] [email or web address] Consulting Provider Geriatric Medicine 03/20/20 03/26/22 Marjorie Pappas NP [address] [place] [address] [email or web address] Nurse Practitioner Oncology 09/11/20 Cliff Walsh MD [address] [place] [address] Insurance Assigned Provider 10/28/23 Chinyere Barajas RN [address] [place] [address] PH[facility] Industrial Twisting Machine Operator 09/27/21 11/07/21 documented as of this encounter Additional Source Comments The information contained in this document represents components of the legal health record. It is not the complete legal health record.[facility]
--- OUTSIDE RECORDS SUMMARY | 2025-06-25 22:17 | XMS_ITS | Encounter Summary ---
Author Organization [facility] Address [address] [facility] [address] [place] [address] Phone Care Team Providers Care Glass Beveler Name Role Phone Julia Callahan DO Primary Care Provider [phone] Pcp, Not Required Primary Care Provider Unavaila ble Mariajose Smallwood [facility] Primary Care Provider Jose Becerra MD Primary Care Provider [phone] Mariajose Smallwood [facility] Primary Care Provider Dyan Matias auto clocks repairer Provider [phone] Julia Callahan DO Unavailable [phone] Mariajose Smallwood [facility] Unavailable [phone] Pcp, Not Required Unavailable Unavailable Jose Becerra MD Unavailable Letitia Odom MD Unavailable [phone] Chinyere Reilly MD Unavailable [phone] Marjorie Pappas FIRE CONTROL TECHNICIAN G Unavailable [phone] Cliff Walsh MD Primary Care Provider [phone] Cliff Walsh MD Unavailable Chinyere Barajas RN Unavailable [phone] Encounter Details Date Type Department Care Team (Late st Contact Info) Description 08/01/2017 Procedure Pass [facility], Ct Scan - [facility] [address] [place] [address] Social History Tobacco Use Types Packs/Day Years [...] Info) Description 10/14/2024 Procedure Pass Echo Lab [place] [place] [address] 07/01/2025 2:00 PM EST Office Visit [facility] [address] [place] [address] Cliff Walsh MD [address] [place] [address] 2nd [place] [address] 10/01/2025 11:20 AM EDT Office Visit [facility] [address] [place] [address] [place] [address] Wen Parikh MD [address] [place] [address] 3[address] [place] [address] 10/07/2025 12:45 PM EDT Appointment Echo Lab [address] [place] [address] Eliseo Jacobs DO [address] [facility] [address] [place] [address] 10/21/2025 12:30 PM EDT Office Visit [facility] [address] [facility] 3rd Floor, [address] [place] [address] Eliseo Jacobs DO [address] [facility] [address] [place] [address] documented as of this encounter Visit Diagnoses [...] documented as of this encounter Care Teams Glass Beveler Relationship Specialty Start Date End Date Julia Callahan DO [address] [place] [address] PCP - General 05/11/17 03/22/18 Pcp, Not Required [address] [place] [address] PCP - General 03/23/18 08/06/18 Mariajose Smallwood FNP [address] [place] [address] 7 [place] [address] PCP - General Family Medicine 08/07/18 08/09/18 Jose Becerra MD [address] [place] [address] 7 [place] [address] PCP - General Family Medicine 08/10/18 12/03/18 Mariajose Smallwood FNP [address] [place] [address] 7 [place] [address] [email or web address] PCP - General Family Medicine 12/04/18 01/09/19 Dyan Matias RN [address] [place] [address] [email or web address] PCP - General Internal Medicine 01/10/19 09/13/20 Cliff Walsh MD [address] [place] [address] [email or web address] PCP - General Internal Medicine 09/14/20 Julia Callahan DO [address] [place] [address] 03/23/18 08/06/18 Mariajose Smallwood FNP [address] [place] [address] 7 [place] [address] [email or web address] 08/10/18 12/03/18 Pcp, Not Required [address] [place] [address] 08/07/18 08/09/18 Jose Becerra MD [address] [place] [address] 7 [place] [address] [email or web address] Family Medicine 12/04/18 Letitia Odom MD [address] [place] [address] [email or web address] Insurance Assigned Provider 10/30/19 10/31/20 Chinyere Reilly MD [address] [place] [address] [email or web address] Consulting Provider Geriatric Medicine 03/20/20 03/26/22 Marjorie Pappas NP [address] [place] [address] [email or web address] Nurse Practitioner Oncology 09/11/20 Cliff Walsh MD [address] [place] [address] [email or web address] Insurance Assigned Provider 10/28/23 Chinyere Barajas RN [address] [place] [address] [email or web address] Bulbs Farmworker 09/27/21 11/07/21 documented as of this encounter Additional Source Comments The information contained in this document represents components of the legal health record. It is not the complete legal health record.[facility]
--- OUTSIDE RECORDS SUMMARY | 2025-06-25 22:17 | XMS_ITS | Encounter Summary ---
Author Organization [facility] Address [address] [place] [address] Phone Care Team Providers Care Ferry Hand Name Role Phone Julia Callahan DO Primary Care Provider [phone] Pcp, Not Required Primary Care Provider Unavaila ble Mariajose Smallwood [facility] Primary Care Provider Jose Becerra MD Primary Care Provider [phone] Mariajose Smallwood [facility] Primary Care Provider Dyan Matias chimney sweeper Provider [phone] Julia Callahan DO Unavailable [phone] Mariajose Smallwood [facility] Unavailable [phone] Pcp, Not Required Unavailable Unavailable Jose Becerra MD Unavailable Letitia Odom MD Unavailable [phone] Chinyere Reilly MD Unavailable [phone] Marjorie Pappas SHEARING MACHINE TENDER Unavailable Cliff Walsh MD Primary Care Provider [phone] Cliff Walsh MD Unavailable [phone] Chinyere Barajas RN Unavailable Encounter Details Date Type Department Care Team (Late Contact Info) Description 01/26/2018 Transcribe Orders [facility] Specimen Processing [address] [place] [address] Jose Becerra MD 38 [facility], [address], [address] [place] [address] Kidney disorder (Primary Dx) Social History Tobacco Use Types [...] Info) Description 10/14/2024 Procedure Pass Echo Lab [address] [place] [address] 07/01/2025 2:00 PM EST Office Visit [facility] [address] [place] [address] [place] [address] Cliff Walsh MD [address] [place] [address] 10/01/2025 11:20 AM EDT Office Visit [facility] [address] [address] [place] [address] Wen Parikh MD [address] [place] [address] 10/07/2025 12:45 PM EDT Appointment Echo Lab [address] [place] [address] Eliseo Jacobs, DO 22 [facility] [address] [place] [address] 10/21/2025 12:30 PM EDT Office Visit [facility] [address] 3[address] Floor, [address] [place] [address] Eliseo Jacobs, DO 22 [facility] [address] [place] [address] [email or web address] documented as of this encounter Results * (ABNORMAL) Basic metabolic panel (01/26/2018 5:23 AM EDT) SODIUM 142 133 - 146 mmol/L [facility] CHLORIDE 103 96 - 108 mmol/L [facility] POTASSIUM 4.2 3.3 - 5.1 mmol/L [facility] CO2 26 21 - 35 mmol/L [facility] BUN 19 6 - 19 mg/dL [facility] CREATININE 0.90 0.5 - 1.5 mg/dL [facility] GLUCOSE 120(H) 70 - 99 mg/dL [facility] CALCIUM 9.2 8.4 - 10.3 mg/dL [facility] EGFR 64 >59 mL/min/1.7 3m2 [facility] Comment:If patient is black, multiply result by 1.159. Estimated glomerular filtration rate calculated using the CKD-EPI equation. ANION GAP 17 10 - 20 mmol/L [facility] Blood 01/26/2018 5:23 AM EDT 01/26/2018 9:22 AM EDT us Jose Becerra MD LAB BLOOD BKR ORDERABLES Final R esult [facility] [address] [place] [address] * (ABNORMAL) CBC and differential (01/26/2018 5:23 AM EDT) WBC 6.23 3.40 - 11.20 K/uL [facility] RBC 4.20 3.80 - 4.80 M/uL [facility] HGB 11.4(L) 12.0 - 15.0 g/dL [facility] HCT 34.5(L) 36.0 - 46.0 % [facility] PLT 196 130 - 400 K/uL [facility] MCV 82.1 79.0 - 98.0 fL [facility] MCH 27.1 27.0 - 34.8 pg [facility] MCHC 33.0 31.5 - 36.0 g/dL [facility] RDW 15.9(H) 10.8 - 14.6 % [facility] MPV 10.4 9.4 - 12.4 fl [facility] NRBC 0.00 /100 WBCs [facility] ABSOLUTE NRBC 0.00 K/uL [facility] DIFF METHOD Auto [facility] NEUTS 57.1 45.30 - 77.70 % [facility] LYMPHS 27.4 12.30 - 39.70 % [facility] MONOS 11.1 4.10 - 12.80 % [facility] EOS 3.9 0 - 7.2 % [facility] BASOS 0.3 0 - 2.80 % [facility] Granulocytes, immature (%) 0.2 0.0 - 0.9 % [facility] ABSOLUTE NEUTS 3.56 1.40 - 7.70 K/uL [facility] ABSOLUTE LYMPHS 1.71 0.60 - 3.20 K/uL [facility] ABSOLUTE MONOS 0.69(H) 0.11 - 0.59 K/uL [facility] ABSOLUTE EOS 0.24 0.01 - 0.50 K/uL [facility] ABSOLUTE BASOS 0.02 0.00 - 0.08 K/uL [facility] Granulocytes, immature 0.01 0.00 - 0.05 K/uL [facility] Blood 01/26/2018 5:23 AM EDT 01/26/2018 9:22 AM EDT us Jose Becerra MD LAB BLOOD BKR ORDERABLES Final R esult [facility] [address] [place] [address] documented in this encounter Visit Diagnoses Diagnosis Kidney disorder- Primary Unspecified disorder of kidney and ureter documented in this encounter Additional Health Concerns Infection Onset Date Last Indicated Resolved Time CoV-Risk Comment:Negative 04/2604/23/2020 04/26/2020 04/28/2020 2:27 PM EDT CoV-Risk Comment:Per Ambulatory Triage Form 08/05/2021 08/05/202108/15 1:23 AM EST CoV-Risk Comment:Per note documentation 11/26/2021 11/26/2021 8:25 PM EDT 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 11/27/2021 11/27/2023 1:22 AM EDT documented as of this encounter Care Teams Ferry Hand Relationship Specialty Start Date End Date Julia Callahan DO [address] [place] [address] PCP - General 05/11/17 03/22/18 Pcp, Not Required [address] [place] [address] PCP - General 03/23/18 08/06/18 Mariajose Smallwood FNP [address] [place] [address] 7 [place] [address] PCP - General Family Medicine 08/07/18 08/09/18 Jose Becerra MD [address] [place] [address] 7 [place] [address] PCP - General Family Medicine 08/10/18 12/03/18 Mariajose Smallwood FNP [address] [place] [address] 7 [place] [address] PCP - General Family Medicine 12/04/18 01/09/19 Dyan Matias, MERT [address] [place] [address] PCP - General Internal Medicine 01/10/19 09/13/20 Cliff Walsh MD [address] [place] [address], [address] [place] [address] PCP - General Internal Medicine 09/14/20 Julia Callahan DO [address] [place] [address] 03/23/18 08/06/18 Mariajose Smallwood FNP [address] [place] [address] 7 [place] [address] [email or web address] Family Medicine 08/10/18 12/03/18 Pcp, Not Required [address] [place] [address] 08/07/18 08/09/18 Jose Becerra MD [address] [place] [address] 7 [place] [address] [email or web address] Family Medicine 12/04/18 Letitia Odom MD [address] [place] [address], [address] [place] [address] Insurance Assigned Provider 10/30/19 10/31/20 Chinyere Reilly MD [address] [place] [address], [address] [place] [address] Consulting Provider Geriatric Medicine 03/20/20 03/26/22 Marjorie Pappas NP [address] [place] [address] [email or web address] Nurse Practitioner Oncology 09/11/20 Cliff Walsh MD [address] [place] [address], 2nd [place] [address] Insurance Assigned Provider 10/28/23 Chinyere Barajas RN [address] [place] [address] [email or web address] PHC [facility] [place] 09/27/21 11/07/21 documented as of this encounter Additional Source Comments The information contained in this document represents components of the legal health record. It is not the complete legal health record.[facility]
--- OUTSIDE RECORDS SUMMARY | 2025-06-25 22:17 | XMS_ITS | Encounter Summary ---
Author Organization [facility] Address [address] [place] [address] Phone Care Team Providers Care Electroneurodiagnostic Technician Name Role Phone Jose Becerra MD Unavailable Chinyere Reilly MD Unavailable [phone] Marjorie Pappas MILK DRYING MACHINE OPERATOR Unavailable Cliff Walsh MD Primary Care Provider [phone] Cliff Walsh MD Unavailable [phone] Encounter Details Date Type Department Care Team (Late st Contact Info) Description 11/27/2021 Procedure Pass [facility], Ct Scan - [facility] [address] [place] [address] Social History Tobacco Use Types Packs/Day Years [...] 2:30 AM EDT Mary Black RN * [place] Suicide Severity Rating Scale (Screener/Recent Self-Report) Question Answer Date of Assessment Author 6. Suicidal Behavior (Lifetime) No 2:30 AM EDT Mary Black RN documented as of this encounter Plan of Treatment Upcoming Encounters Date Type Department Care Team (Late st Contact Info) Description 10/14/2024 Procedure Pass Echo Lab [address] [place] [address] 07/01/2025 2:00 PM EST Office Visit [facility] [address] [place] [address] Cliff Walsh MD [address] [place] [address] 2nd [place] [address] 10/01/2025 11:20 AM EDT Office Visit [facility] [address] [place] [address] [place] [address] Wen Parikh MD [address] [place] [address] 3rd [place] [address] 10/07/2025 12:45 PM EDT Appointment Echo Lab [address] [place] [address] Eliseo Jacobs DO [address] [place] [address] 10/21/2025 12:30 PM EDT Office Visit [facility] [address] [place] [address] 3rd [facility], [address] [place] [address] Eliseo Jacobs DO [address] [place] [address] [email or web address] documented as of this encounter Visit Diagnoses [...] documented as of this encounter Care Teams Electroneurodiagnostic Technician Relationship Specialty Start Date End Date Cliff Walsh MD [address] [place] [address] PCP - General Internal Medicine 09/14/20 Jose Becerra MD Family Medicine 12/04/18 Chinyere Reilly MD Consulting Provider Geriatric Medicine 03/20/20 03/26/22 Marjorie Pappas NP [address] [place] [address] Nurse Practitioner Oncology 09/11/20 Cliff Walsh MD [address] [place] [address] [email or web address] Insurance Assigned Provider 10/28/23 documented as of this encounter Additional Source Comments The information contained in this document represents components of the legal health record. It is not the complete legal health record.[facility]
[2025-06-25 22:18] LABS: Hematocrit 32.3 % (37.0-47.0); Hemoglobin 10.0 g/dl (12.0-16.0); Imm Gran Abs Auto 0.05 X10*3/uL (0.00-0.03); Imm Gran Pct Auto 0.7 % (0.0-0.4); Lymphocytes Absolute Auto 1.4 X10*3/uL (1.2-4.9); Mean Corpuscular HGB Conc 31.0 g/dl (31.0-35.0); Mean Corpuscular Hemoglobin 27.4 pg (27.0-33.0); Mean Corpuscular Volume 88.5 fL (80.0-98.0); NRBC Abs Auto 0.000 X10*3/uL (0.0-0.012); NRBC Pct Auto 0.0 /100WBC (0.0-0.2); Platelet Count 218 X10*3/uL (160-400); Red Blood Count 3.65 X10*6/uL (4.20-5.50); White Blood Count 6.9 X10*3/uL (4.8-10.8)
--- OUTSIDE RECORDS SUMMARY | 2025-06-25 22:18 | XMS_ITS | Encounter Summary ---
Author Organization [facility] Address [address] [place] [address] Phone Care Team Providers Care Communications Designer Name Role Phone Jose Becerra MD Unavailable Chinyere Reilly MD Unavailable [phone] Marjorie Pappas SUPERVISOR [employer] Unavailable [phone] Cliff Walsh MD Primary Care Provider Cliff Walsh MD Unavailable [phone] Encounter Details Date Type Department Care Team (Late st Contact Info) Description 12/14/2021 Procedure Pass [facility] - [address] [place] [address] Social History Tobacco Use Types Packs/Day Years [...] Info) Description 10/14/2024 Procedure Pass Echo Lab [address] [place] [address] 07/01/2025 2:00 PM EST Office Visit [address] [place] [address] Cliff Walsh MD [address] [place] [address] 2[address] [place] [address] 10/01/2025 11:20 AM EDT Office Visit [facility] [address] [place] [address] [place] [address] Wen Parikh MD [address] [place] [address] 10/07/2025 12:45 PM EDT Appointment Echo Lab [address] [place] [address] Eliseo Jacobs [address] [address] 10/21/2025 12:30 PM EDT Office Visit [facility] [address] [place] [address] [place] [address], [address] [address] Eliseo Jacobs DO [address] [place] [address] documented as of this encounter Visit Diagnoses Not on filedocumented in this encounter Additional Health Concerns Infection Onset 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 11/27/2021 11/27/2023 1:22 AM EDT Assessment Noted Time PHQ-9 Depression Total Score: 11 11/09/2 020 9:53 AM EST PHQ-2 Depression Total Score: 0 12/10/19 21 10:22 AM EDT documented as of this encounter Care Teams Communications Designer Relationship Specialty Start Date End Date Cliff Walsh MD [address] [place] [address], [address] [place] [address] PCP - General Internal Medicine 09/14/20 Jose Becerra MD Family Medicine 12/04/18 Chinyere Reilly MD Consulting Provider Geriatric Medicine 03/20/20 03/26/22 Marjorie Pappas NP [address] [place] [address] Nurse Practitioner Oncology 09/11/20 Cliff Walsh MD [address] [place] [address], [address] [place] [address] Insurance Assigned Provider 10/28/23 documented as of this encounter Additional Source Comments The information contained in this document represents components of the legal health record. It is not the complete legal health record.[facility]
--- OUTSIDE RECORDS SUMMARY | 2025-06-25 22:18 | XMS_ITS | Encounter Summary ---
Author Organization [facility] Address [address] [place] [address] Phone Care Team Providers Care Golf Stud Riveter Name Role Phone Pcp, Not Required Primary Care Provider Unavaila ble Mariajose Smallwood [facility] Primary Care Provider Jose Becerra MD Primary Care Provider [phone] Mariajose Smallwood [facility] Primary Care Provider Dyan Matias bindery machine setter Provider [phone] Julia Callahan DO Unavailable [phone] Mariajose Smallwood [facility] Unavailable [phone] Pcp, Not Required Unavailable Unavailable Jose Becerra MD Unavailable Letitia Odom MD Unavailable [phone] Chinyere Reilly MD Unavailable [phone] Marjorie Pappas SCRIPT EDITOR Unavailable [phone] Cliff Walsh MD Primary Care Provider Cliff Walsh MD Unavailable [phone] Chinyere Barajas RN Unavailable Encounter Details Date Type Department Care Team (Late st Contact Info) Description 04/27/2018 Transcribe Orders [facility] Specimen Processing 30 [place] [address] Jose Becerra MD 38 [facility], [address], [address] [place] [address] Iron deficiency anemia, unspecified iron deficiency anemia [...] Info) Description 10/14/2024 Procedure Pass Echo Lab [address] [place] [address] 07/01/2025 2:00 PM EST Office Visit [facility] [facility] [address] [place] [address] Cliff Walsh MD [address] [place] [address] 10/01/2025 11:20 AM EDT Office Visit [facility] [address] [place] [address] [place] [address] Wen Parikh MD [address] [place] [address] 3[address] [place] [address] 10/07/2025 12:45 PM EDT Appointment Echo Lab [address] [place] [address] Eliseo Jacobs, DO 22 [facility] [address] [place] [address] [email or web address] 10/21/2025 12:30 PM EDT Office Visit [facility] [place] [facility] [address], [address] [place] [address] Eliseo Jacobs, DO 22 [facility] [address] [place] [address] [email or web address] documented as of this encounter Results * (ABNORMAL) Basic metabolic panel (04/27/2018 5:57 AM EDT) Pathologist [facility] SODIUM 145 133 - 146 mmol/L [facility] CHLORIDE 104 96 - 108 mmol/L [facility] POTASSIUM 4.1 3.3 - 5.1 mmol/L [facility] CO2 26 21 - 35 mmol/L [facility] BUN 13 6 - 19 mg/dL [facility] CREATININE 0.80 0.5 - 1.5 mg/dL [facility] GLUCOSE 114(H) 70 - 99 mg/dL [facility] CALCIUM 8.8 8.4 - 10.3 mg/dL [facility] EGFR 74 >59 mL/min/1.7 3m2 [facility] Comment:If patient is black, multiply result by 1.159. Estimated glomerular filtration rate calculated using the CKD-EPI equation. ANION GAP 19 10 - 20 mmol/L [facility] Blood 04/27/2018 5:57 AM EDT 04/27/2018 7:42 AM EDT us Jose Becerra MD LAB BLOOD BKR ORDERABLES Final R esult [facility] [address] [place] [address] * (ABNORMAL) CBC (04/27/2018 5:57 AM EDT) WBC 6.35 3.40 - 11.20 K/uL [facility] RBC 4.55 3.80 - 4.80 M/uL [facility] HGB 12.0 12.0 - 15.0 g/dL [facility] HCT 36.7 36.0 - 46.0 % [facility] PLT 198 130 - 400 K/uL [facility] MCV 80.7 79.0 - 98.0 fL [facility] MCH 26.4(L) 27.0 - 34.8 pg [facility] MCHC 32.7 31.5 - 36.0 g/dL [facility] RDW 14.9(H) 10.8 - 14.6 % [facility] MPV 10.5 9.4 - 12.4 fl [facility] NRBC 0.00 /100 WBCs [facility] ABSOLUTE NRBC 0.00 K/uL [facility] Blood 04/27/2018 5:57 AM EDT 04/27/2018 7:42 AM EDT us Jose Becerra MD LAB BLOOD BKR ORDERABLES Final R esult [facility] [address] [place] [address] documented in this encounter Visit Diagnoses Diagnosis [...] documented as of this encounter Care Teams Golf Stud Riveter Relationship Specialty Start Date End Date Pcp, Not Required [address] [place] [address] PCP - General 03/23/18 08/06/18 Mariajose Smallwood FNP [address] [place] [address] 7 [place] [address] [email or web address] PCP - General Family Medicine 08/07/18 08/09/18 Jose Becerra MD [address] [place] [address] 7 [place] [address] [email or web address] PCP - General Family Medicine 08/10/18 12/03/18 Mariajose Smallwood FNP [address] [place] [address] 7 [place] [address] [email or web address] PCP - General Family Medicine 12/04/18 01/09/19 Dyan Matias RN [address] [place] [address] [email or web address] PCP - General Internal Medicine 01/10/19 09/13/20 Cliff Walsh MD [address] [place] [address], 2nd [place] [address] [email or web address] PCP - General Internal Medicine 09/14/20 Julia Callahan DO [address] [place] [address] 03/23/18 08/06/18 Mariajose Smallwood FNP [address] [place] [address] 7 [place] [address] [email or web address] Family Medicine 08/10/18 12/03/18 Pcp, Not Required [address] [place] [address] 08/07/18 08/09/18 Jose Becerra MD [address] [place] [address], [address] [place] [address] Family Medicine 12/04/18 Letitia Odom MD [address] [place] [address] [email or web address] Insurance Assigned Provider 10/30/19 10/31/20 Chinyere Reilly MD [address] [place] [address] Consulting Provider Geriatric Medicine 03/20/20 03/26/22 Marjorie Pappas, DANE [address] [place] [address] Nurse Practitioner Oncology 09/11/20 Cliff Walsh MD [address] [place] [address] Insurance Assigned Provider 10/28/23 Chinyere Barajas, MERT [address] [place] [address] [employer] Libr[employer] 09/27/21 11/07/21 documented as of this encounter Additional Source Comments The information contained in this document represents components of the legal health record. It is not the complete legal health record.[facility]
--- OUTSIDE RECORDS SUMMARY | 2025-06-25 22:18 | XMS_ITS | Encounter Summary ---
Author Organization [facility] Address [address] [facility] [address] [place] [address] Phone Care Team Providers Care Mechanical Oxidizer Name Role Phone Jose Becerra MD Unavailable Chinyere Reilly MD Unavailable [phone] Marjorie Pappas ELIGIBILITY SUPERVISOR Unavailable [phone] Cliff Walsh MD Primary Care Provider Cliff Walsh MD Unavailable [phone] Encounter Details Date Type Department Care Team (Late st Contact Info) Description 03/24/2022 Procedure Pass [facility] Echo Lab [address] [place] [address] Social History Tobacco Use Types Packs/Day Years [...] Date of Assessment Author No Risk Indicated 03/24/2022 11:00 AM EDT Jammie Bowen RN * [place] Suicide Severity Rating Scale (Screener/Recent Self-Report) Question Answer Date of Assessment Author 1. Wish to be (Past 1 Month) No 022 11:00 AM EDT Jammie Fuentes RN 2. Non-Specific Active Suici anisha Thoughts (Past 1 Month) No 03/24/2022 11:00 AM EDT Kiana Fuentes RN 6. Suicidal Behavior (Lifetime) No 11:00 AM EDT Jammie Fuentes RN documented as of this encounter Plan of Treatment Upcoming Encounters Date Type Department Care Team (Late st Contact Info) Description 10/14/2024 Procedure Pass Echo Lab [address] [place] [address] 07/01/2025 2:00 PM EST Office Visit [facility] [address] [place] [address] [place] [address] Cliff Walsh MD [address] [place] [address] 10/01/2025 11:20 AM EDT Office Visit [facility] [address] [place] [address] [place] [address] Wen Parikh MD [address] [place] [address] 10/07/2025 12:45 PM EDT Appointment Echo Lab [address] [place] [address] Eliseo Jacobs DO 22 [facility] [address] [place] [address] 10/21/2025 12:30 PM EDT Office Visit [facility] 22 [facility] 3rd [facility], [address] [place] [address] Eliseo Jacobs DO [address] [address] [email or web address] documented as of this encounter Visit Diagnoses Not on filedocumented in this encounter Additional Health Concerns Infection Onset 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 11/27/2021 11/27/2023 1:22 AM EDT Assessment Noted Time PHQ-9 Depression Total Score: 11 020 9:53 AM EST PHQ-2 Depression Total Score: 0 12/10/19 21 10:22 AM EDT documented as of this encounter Care Teams Mechanical Oxidizer Relationship Specialty Start Date End Date Cliff Walsh MD [address] [place] [address] PCP - General Internal Medicine 09/14/20 Jose Becerra MD Family Medicine 12/04/18 Chinyere Reilly MD Consulting Provider Geriatric Medicine 03/20/20 03/26/22 Marjorie Pappas NP [address] [place] [address] Nurse Practitioner Oncology 09/11/20 Cliff Walsh MD [address] [place] [address] Insurance Assigned Provider 10/28/23 documented as of this encounter Additional Source Comments The information contained in this document represents components of the legal health record. It is not the complete legal health record.[facility]
--- OUTSIDE RECORDS SUMMARY | 2025-06-25 22:18 | XMS_ITS | Encounter Summary ---
Author Organization [facility] Address [address] [facility] [address] [place] [address] Phone Care Team Providers Care Corporate Giving Manager Name Role Phone Jose Becerra MD Unavailable Chinyere Reilly MD Unavailable [phone] Marjorie Pappas ICEBOX WORKER Unavailable [phone] Cliff Walsh MD Primary Care Provider Cliff Walsh MD Unavailable [phone] Encounter Details Date Type Department Care Team (Late st Contact Info) Description 02/21/2022 Ancillary Orders Virtual Department [address] [place] [address] Cliff Walsh MD [address], [address]nd [place] [address] Breast screening Social History Tobacco Use Types Packs/Day Years [...] Info) Description 10/14/2024 Procedure Pass Echo Lab [address] [place] [address] 07/01/2025 2:00 PM EST Office Visit [facility] [address] [place] [address] Cliff Walsh MD [address] [place] [address] 10/01/2025 11:20 AM EDT Office Visit [facility] [address] [place] [address] [place] [address] Wen Parikh MD [address] [place] [address] 3rd [place] [address] 10/07/2025 12:45 PM EDT Appointment Echo Lab [address] [place] [address] Eliseo Jacobs DO [address] [place] [address] [place] [address] 10/21/2025 12:30 PM EDT Office Visit [facility] [address] [place] [address] 3rd [facility], [address] [place] [address] Eliseo Jacobs, DO [address] [place] [address] documented as of this encounter Results * BI MAMMOGRAM SCREENING WITH TOMOSYNTHESIS WITH CAD (RIGHT) (04/04/2022 11:47 AM EDT) Anatomical Region Laterality Modality Breast Right, Breast Bilateral Right M ammography 04/04/2022 12:1 6 PM EDT Impressions 04/04/2022 1:03 PM EDT No mammographic evidence of malignancy. Recommend routine annual surveillance. BI-RADS CATEGORY: 2 - Benign finding. DENSITY: The breast tissue is heterogeneously dense, which could obscure a lesion on mammography. Narrative 04/04/2022 1:03 PM EDT 76-year-old female. Left mastectomy. Comparison made to previous on 02/17/2021 minutes far back as 11/22/2004. Interpretation made in conjunction with computer-aided detection and tomosynthesis. Imaging less than optimal due to limited mobility. Right breast is heterogeneously dense, which may obscure small masses. Chronic benign calcifications. There are no suspicious masses, areas of architectural distortion, or suspicious clusters of microcalcifications. Procedure Note Abdiaziz Posada MD - 04/04/2022 76-year-old female. Left mastectomy. Comparison made to previous on02/17/2021 minutes far back as 11/22/2004. Interpretation made inconjunction with computer-aided detection and tomosynthesis. Imaging less than optimal due to limited mobility. Right breast isheterogeneously dense, which may obscure small masses. Chronic benigncalcifications. There are no suspicious masses, areas of architectural distortion, orsuspicious clusters of microcalcifications. IMPRESSION: No mammographic evidence of malignancy. Recommend routine annualsurveillance. BI-RADS CATEGORY: 2 - Benign finding. DENSITY: The breast tissue is heterogeneously dense, which could obscurea lesion on mammography. Cliff Walsh MD IMG MG EXAMS Final Resul t documented in this encounter Visit Diagnoses Diagnosis Breast screening Breast screening, unspecified documented in this encounter Additional Health Concerns Infection Onset 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 11/27/2021 11/27/2023 1:22 AM EDT Assessment Noted Time PHQ-9 Depression Total Score: 11 020 9:53 AM EST PHQ-2 Depression Total Score: 0 12/10/19 10:22 AM EDT documented as of this encounter Care Teams Corporate Giving Manager Relationship Specialty Start Date End Date Cliff Walsh MD [address] [place] [address] PCP - General Internal Medicine 09/14/20 Jose Becerra MD [email or web address] Family Medicine 12/04/18 Chinyere Reilly MD Consulting Provider Geriatric Medicine 03/20/20 03/26/22 Marjorie [facility]appas [facility] [place] [address] Nurse Practitioner Oncology 09/11/20 Cliff Walsh MD [address] [place] [address] Insurance Assigned Provider 10/28/23 documented as of this encounter Additional Source Comments The information contained in this document represents components of the legal health record. It is not the complete legal health record.[facility]
--- OUTSIDE RECORDS SUMMARY | 2025-06-25 22:18 | XMS_ITS | Encounter Summary ---
Author Organization [facility] Address [address] [facility] [address] [place] [address] Phone Care Team Providers Care Transition Social Worker Name Role Phone Jose Becerra MD Unavailable Chinyere Reilly MD Unavailable Marjorie Pappas MARKETING WRITER Unavailable [phone] Cliff Walsh MD Primary Care Provider Cliff Walsh MD Unavailable [phone] Chinyere Barajas RN Unavailable [phone] Encounter Details Date Type Department Care Team (Late st Contact Info) Description 02/19/2021 Procedure Pass [facility], Ct Scan - [address] [address] Social History Tobacco Use Types Packs/Day Years [...] Date of Assessment Author No Risk Indicated 02/19/2021 11:26 AM EDT Pipe Pineda, MERT * [place] Suicide Severity Rating Scale (Screener/Recent Self-Report) Question Answer Date of Assessment Author 1. Wish to be (Past 1 Month) No 02/19/2021 11:26 AM EDT Ro Cheng, MERT 2. Non-Specific Active Suicidal Thoughts (Past 1 Month) No 02/19/2021 11:26 AM EDT Ro Cheng, MERT 6. Suicidal Behavior (Lifetime) No 02/19/2021 11:26 AM EDT Ro Cheng, MERT documented as of this encounter Plan of Treatment Upcoming Encounters Date Type Department Care Team (Late st Contact Info) Description 10/14/2024 Procedure Pass Echo Lab [address] [place] [address] 07/01/2025 2:00 PM EST Office Visit [facility] [address] [place] [address] [place] [address] Cliff Walsh MD [address] [place] [address] 2nd [place] [address] 10/01/2025 11:20 AM EDT Office Visit [facility] [address] [place] [address] [place] [address] Wen Parikh MD [address] [place] [address] 3rd [place] [address] 10/07/2025 12:45 PM EDT Appointment Echo Lab [address] [place] [address] Eliseo Jacobs DO [address] [facility] [address] [place] [address] 10/21/2025 12:30 PM EDT Office Visit [facility] [address] [facility] 3rd Floor, [address] [place] [address] Eliseo Jacobs DO [address] [address] documented as of this encounter Visit Diagnoses [...] documented as of this encounter Care Teams Transition Social Worker Relationship Specialty Start Date End Date Cliff Walsh MD [address] [place] [address], 2nd [place] [address] PCP - General Internal Medicine 09/14/20 Jose Becerra MD Family Medicine 12/04/18 Chinyere Reilly MD Consulting Provider Geriatric Medicine 03/20/20 03/26/22 Marjorie Pappas, DANE [address] [place] [address] [email or web address] Nurse Practitioner Oncology 09/11/20 Cliff Walsh MD [address] [place] [address], 2nd [place] [address] [email or web address] Insurance Assigned Provider 10/28/23 Chinyere Barajas, RN [address] [place] [address] [email or web address] PHCM Bingo Cashier 09/27/21 11/07/21 documented as of this encounter Additional Source Comments The information contained in this document represents components of the legal health record. It is not the complete legal health record.[facility]
--- OUTSIDE RECORDS SUMMARY | 2025-06-25 22:18 | XMS_ITS | Encounter Summary ---
Author Organization [facility] Address [address] [facility] [address] [place] [address] Phone Care Team Providers Care Equine Internship Name Role Phone Jose Becerra MD Unavailable Chinyere Reilly MD Unavailable Marjorie Pappas WEDDING FLORIST Unavailable [phone] Cliff Walsh MD Primary Care Provider Cliff Walsh MD Unavailable [phone] Chinyere Barajas RN Unavailable [phone] Encounter Details Date Type Department Care Team (Late st Contact Info) Description 2020 Procedure Pass [facility] - [address] [place] [address] Social History Tobacco Use Types Packs/Day Years [...] Info) Description 10/14/2024 Procedure Pass Echo [facility] [address] [place] [address] 07/01/2025 2:00 PM EST Office Visit [facility] [address] [place] [address] [place] [address] Cliff Walsh MD [address] [place] [address] 2nd [place] [address] 10/01/2025 11:20 AM EDT Office Visit [facility] [address] [place] [address] [place] [address] Wen Parikh MD [address] [place] [address] 3rd [place] [address] 10/07/2025 12:45 PM EDT Appointment Echo Lab [address] [place] [address] Eliseo Jacobs, DO [address] [place] [address] [place] [address] 10/21/2025 12:30 PM EDT Office Visit [facility] [address] [place] [address] 3rd [facility], [address] [place] [address] Eliseo Jacobs, DO [address] [place] [address] documented as of this encounter Visit Diagnoses [...] documented as of this encounter Care Teams Equine Internship Relationship Specialty Start Date End Date Cliff Walsh MD [address] [place] [address] [email or web address] PCP - General Internal Medicine 09/14/20 Jose Becerra MD Family Medicine 12/04/18 Chinyere Reilly MD [email or web address] Consulting Provider Geriatric Medicine 03/20/20 03/26/22 Marjorie Pappas NP [address] [place] [address] Nurse Practitioner Oncology 09/11/20 Cliff Walsh MD [facility] [employer] [address] [address] Insurance Assigned Provider 10/28/23 Chinyere Barajas, RN [address] [place] [address] [email or web address] PHCM Nicker And Breaker 09/27/21 11/07/21 documented as of this encounter Additional Source Comments The information contained in this document represents components of the legal health record. It is not the complete legal health record.[facility]
--- OUTSIDE RECORDS SUMMARY | 2025-06-25 22:18 | XMS_ITS | Encounter Summary ---
Author Organization [facility] Address [address] [facility] [address] [place] [address] Phone Care Team Providers Care Physician General Practice Name Role Phone Jose Becerra MD Unavailable Chinyere Reilly MD Unavailable [phone] Marjorie Pappas ASSEMBLER ERECTOR Unavailable [phone] Cliff Walsh MD Primary Care Provider Cliff Walsh MD Unavailable [phone] Encounter Details Date Type Department Care Team (Late st Contact Info) Description 03/25/2022 Procedure Pass Non-Invasive Cardiology 30 [place] [address] Social History Tobacco Use Types Packs/Day Years Used Date Smoking Tobacco: Former Cigarettes 1 15 1 - 2007 Smokeless Tobacco: Never Alcohol [...] Info) Description 10/14/2024 Procedure Pass [facility] Lab [address] [place] [id number] 07/01/2025 2:00 PM EST Office Visit [facility] [address] [place] [address] [place] [address] Cliff Walsh MD [address] [place] [address] 2nd [place] [address] 10/01/2025 11:20 AM EDT Office Visit [facility] [address] [place] [address] [place] [address] Wen Parikh MD [address] [place] [address] 10/07/2025 12:45 PM EDT Appointment Echo Lab [address] [place] [address] Eliseo Jacobs [address] [address] [email or web address] 10/21/2025 12:30 PM EDT Office Visit [facility] [address] [place] [address] [place] [address], [address] [address] Eliseo Jacobs DO [address] [place] [address] [email or web address] documented as of this encounter Visit Diagnoses Not on filedocumented in this encounter Additional Health Concerns Infection Onset 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 11/27/2021 11/27/2023 1:22 AM EDT Assessment Noted Time PHQ-9 Depression Total Score: 11 020 9:53 AM EST PHQ-2 Depression Total Score: 0 05/19/20 21 10:22 AM EDT documented as of this encounter Care Teams Physician General Practice Relationship Specialty Start Date End Date Cliff Walsh MD [address] [place] [address], 2nd [place] [address] PCP - General Internal Medicine 09/14/20 Jose Becerra MD Family Medicine 12/04/18 Chinyere Reilly MD Consulting Provider Geriatric Medicine 03/20/20 03/26/22 Marjorie Pappas NP [address] [place] [address] Nurse Practitioner Oncology 09/11/20 Cliff Walsh MD [address] [place] [address], 2nd [place] [address] Insurance Assigned Provider 10/28/23 documented as of this encounter Additional Source Comments The information contained in this document represents components of the legal health record. It is not the complete legal health record.[facility]
--- OUTSIDE RECORDS SUMMARY | 2025-06-25 22:18 | XMS_ITS | Encounter Summary ---
Author Organization [facility] Address [address] [facility] [address] [place] [address] Phone Care Team Providers Care Brick Tester Name Role Phone Jose Becerra MD Unavailable Chinyere Reilly MD Unavailable [phone] Marjorie Pappas FAST FOOD TEAM MEMBER Unavailable [phone] Cliff Walsh MD Primary Care Provider [phone] Cliff Walsh MD Unavailable [phone] Encounter Details Date Type Department Care Team (Late st Contact Info) Description 03/24/2022 Procedure Pass [facility], Ct Scan - [facility] 30 [place] [address] Social History Tobacco Use Types Packs/Day Years [...] Risk Indicated 03/24/2022 11:00 AM EDT Jammie Bowen, MERT * [place] Suicide Severity Rating Scale (Screener/Recent Self-Report) Question [...] Info) Description 10/14/2024 Procedure Pass Echo Lab [address] [place] [address] 07/01/2025 2:00 PM EST Office Visit [facility] [place] [facility] [address] [place] [address] Cliff Walsh MD [address] [place] [address] 10/01/2025 11:20 AM EDT Office Visit [facility] [address] [place] [address] [place] [address] Wen Parikh MD [address] [place] [address] 10/07/2025 12:45 PM EDT Appointment Echo Lab [address] [place] [address] Eliseo Jacobs DO [address] [facility] [facility] [address] [place] [address] 10/21/2025 12:30 PM EDT Office Visit [facility] [address] [facility] 3rd [facility], [address] [place] [address] Eliseo Jacobs DO [address] [facility] [address] [place] [address] documented as of this encounter Visit Diagnoses Not on filedocumented in this encounter Additional Health Concerns Infection Onset 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 11/27/2021 11/27/2023 1:22 AM EDT Assessment Noted Time PHQ-9 Depression Total Score: 11 020 9:53 AM EST PHQ-2 Depression Total Score: 0 12/10/19 21 10:22 AM EDT documented as of this encounter Care Teams Brick Tester Relationship Specialty Start Date End Date Cliff Walsh MD [address] [place] [address] PCP - General Internal Medicine 09/14/20 Jose Becerra MD Family Medicine 12/04/18 Chinyere Reilly MD Consulting Provider Geriatric Medicine 03/20/20 03/26/22 Marjorie Pappas NP [address] [place] [address] Nurse Practitioner Oncology 09/11/20 Cliff Walsh MD [address] [place] [address] [email or web address] Insurance Assigned Provider 10/28/23 documented as of this encounter Additional Source Comments The information contained in this document represents components of the legal health record. It is not the complete legal health record.[facility]
--- OUTSIDE RECORDS SUMMARY | 2025-06-25 22:18 | XMS_ITS | Encounter Summary ---
Author Organization [facility] Address [address] [place] [address] Phone Care Team Providers Care Payroll And Benefits Manager Name Role Phone Pcp, Not Required Primary Care Provider Unavaila ble Mariajose Smallwood [facility] Primary Care Provider [phone] Jose Becerra MD Primary Care Provider [phone] Mariajose Smallwood [facility] Primary Care Provider Dyan Matias [employer] band teacher Provider [phone] Julia Callahan DO Unavailable [phone] Mariajose Smallwood [facility] Unavailable [phone] Pcp, Not Required Unavailable Unavailable Jose Becerra MD Unavailable Letitia Odom MD Unavailable [phone] Chinyere Reilly MD Unavailable [phone] Marjorie Pappas BAD WORK GATHERER Unavailable Cliff Walsh MD Primary Care Provider Cliff Walsh MD Unavailable Chinyere Barajas RN Unavailable [phone] Encounter Details Date Type Department Care Team (Late st Contact Info) Description 06/01/2018 Transcribe Orders [facility] Specimen Processing 30 [place] [address] Jose Becerra MD [address] [facility], [address] [place] [address] Weakness generalized (Primary Dx) Social History Tobacco Use Types [...] Info) Description 10/14/2024 Procedure Pass [facility] [address] [place] [address] 07/01/2025 2:00 PM EST Office Visit [facility] [address] [place] [address] [place] [address] Cliff Walsh MD [address] [place] [address] 2nd [place] [address] 10/01/2025 11:20 AM EDT Office Visit [facility] [address] [place] [address] [place] [address] Wen Parikh MD [address] [place] [address] 3rd [place] [address] 10/07/2025 12:45 PM EDT Appointment Echo Lab [address] [place] [address] Eliseo Jacobs, DO [address] [facility] [address] [place] [address] 10/21/2025 12:30 PM EDT Office Visit [facility] [address] [facility] 3rd Floor, [address] [place] [address] Eliseo Jacobs, DO [address] [facility] [address] [place] [address] documented as of this encounter Results * Uric acid (06/01/2018 5:08 AM EST) Pathologist [facility] URIC ACID 6.4 2.4 - 7.0 mg/dL [facility] Blood 06/01/2018 5:08 AM EST 06/01/2018 7:44 AM EST us Jose Becerra MD LAB BLOOD BKR ORDERABLES Final R esult [address] [address] * (ABNORMAL) Lyme screen with reflex to Western blot, blood (06/01/2018 5:08 AM EST) Pathologist [facility] Lyme AB IgG Positive(A) Negative [facility] Comment:The Lyme Disease Ant ibody, Confirmation, Serum (Western Blot) has been reflexed. The results will follow. Lyme AB IgM Negative Negative [facility] Blood 06/01/2018 5:08 AM EST 06/01/2018 7:44 AM EST us Jose Becerra MD LAB BLOOD BKR ORDERABLES Final R esult [address] [address] * Antinuclear antibody (RAMEZ) (06/01/2018 5:08 AM EST) RAMEZ SCREEN ON HEP 2 Negative Negative [facility] Blood 06/01/2018 5:08 AM EST 06/01/2018 7:44 AM EST Jose Becerra MD LAB BLOOD BKR ORDERABLES Final R esult Performing Organization Address [facility] Co de Phone Number [address] [address] * Rheumatoid factor (06/01/2018 5:08 AM EST) RHEUMATOID FACTOR <10.0 0.0 - 14.0 IU/ml [facility] Blood 06/01/2018 5:08 AM EST 06/01/2018 7:44 AM EST Jose Becerra MD LAB BLOOD BKR ORDERABLES Final R esult Performing Organization Address City/[facility] Co de Phone Number [address] [address] documented in this encounter Visit Diagnoses Diagnosis Weakness generalized- Primary Other malaise and fatigue documented in this encounter Additional Health Concerns Infection Onset Date Last Indicated Resolved Time CoV-Risk Comment:Negative 04/2604/23/2020 04/26/2020 04/28/2020 2:27 PM EDT CoV-Risk Comment:Per Ambulatory Triage Form 08/05/2021 08/05/202108/15 1:23 AM EST CoV-Risk Comment:Per note documentation 11/26/2021 11/26/2021 8:25 PM EDT 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 11/27/2021 11/27/2023 1:22 AM EDT documented as of this encounter Care Teams Payroll And Benefits Manager Relationship Specialty Start Date End Date Pcp, Not Required [address] [place] [address] PCP - General 03/23/18 08/06/18 Mariajose Smallwood FNP [address] [place] [address], [address] [place], [place] [id number] [email or web address] PCP - General Family Medicine 08/07/18 08/09/18 Jose Becerra MD [address] [place] [address] 7 [place] [address] [email or web address] PCP - General Family Medicine 08/10/18 12/03/18 Mariajose Smallwood FNP [address] [place] [address] 7 [place] [address] [email or web address] PCP - General Family Medicine 12/04/18 01/09/19 Dyan Matias RN [address] [place] [address] [email or web address] PCP - General Internal Medicine 01/10/19 09/13/20 Cliff Walsh MD [address] [place] [address], 2nd [place] [address] [email or web address] PCP - General Internal Medicine 09/14/20 Julia Callahan DO [address] [place] [address] 03/23/18 08/06/18 Mariajose Smallwood FNP [address] [place] [address] 7 [place] [address] [email or web address] Family Medicine 08/10/18 12/03/18 Pcp, Not Required [address] [place] [address] 08/07/18 08/09/18 Jose Becerra MD [address] [place] [address] 7 [place] [address] Family Medicine 12/04/18 Letitia Odom MD [address] [place] [address] Insurance Assigned Provider 10/30/19 10/31/20 Chinyere Reilly MD [address] [place] [address] Consulting Provider Geriatric Medicine 03/20/20 03/26/22 Marjorie Pappas NP [facility] [place] [address] [email or web address] Nurse Practitioner Oncology 09/11/20 Cliff Walsh MD [address] [place] [address] Insurance Assigned Provider 10/28/23 Chinyere Barajas, MERT [address] [place] [address] [facility] Procurement Coordinator 09/27/21 11/07/21 documented as of this encounter Additional Source Comments The information contained in this document represents components of the legal health record. It is not the complete legal health record.[facility]
--- OUTSIDE RECORDS SUMMARY | 2025-06-25 22:18 | XMS_ITS | Encounter Summary ---
Author Organization [facility] Address [address] [facility] [address] [place] [address] Phone Care Team Providers Care Body And Fender Worker Name Role Phone Dyan Matias RNchemical processor Provider Jose Becerra MD Unavailable Letitia Odom MD Unavailable [phone] Chinyere Reilly MD Unavailable [phone] Marjorie Pappas SCREEN OPERATOR Unavailable [phone] Cliff Walsh MD Primary Care Provider [phone] Cliff Walsh MD Unavailable [phone] Chinyere Barajas RN Unavailable [phone] Reason for Referral * MRI/CAT Scan - Closed Specialty Diagnoses / Procedures Referred By Espinoza zamora Referred To Contact Radiology Diagnoses HX: breast cancer Procedures MRI Brain Fernando Nice MD Phone: tel: fax: mailto:[email or web address] Referral ID Status Reason Start Date Expiration Date Visits Re quested Visits Authorized [id number] Closed 08/21/2020 08/21/2021 1 1 Encounter Details Date Type Department Care Team (Latest Contact Info) Description 08/21/2020 Transcribe Orders Virtual Department 30 [place] [address] Fernando Nice MD [address] [place] [address], [address] [place] [address] [email or web address] HX: breast cancer (Primary Dx) Social History Tobacco Use Types Packs/Day Years Used Date Smoking Tobacco: Former Cigarettes 1 15 1 2007 Smokeless Tobacco: Never Alcohol Use Standard [...] Description 10/14/2024 Procedure Pass Echo Lab [address] [place] [address] 07/01/2025 2:00 PM EST Office Visit [facility] [address] [place] [address] [place] [address] Cliff Walsh MD [address] [place] [address] 10/01/2025 11:20 AM EDT Office Visit [facility] [address] [place] [address] [place] [address] Wen Parikh MD [address] [place] [address] 10/07/2025 12:45 PM EDT Appointment Echo Lab [place] [address] Eliseo Jacobs, DO 22 [facility] [address] [place] [address] [email or web address] 10/21/2025 12:30 PM EDT Office Visit [facility] [address], [address] [place] [address] Eliseo Jacobs, DO 22 [facility] [address] [place] [address] documented as of this encounter Results * MRI BRAIN WITHOUT CONTRAST (09/07/2020 2:11 PM EST) Anatomical Region Laterality Modality Head Magnetic Resonan ce 09/07/2020 2:12 PM EST Impressions 09/07/2020 2:17 PM EST *Image quality is moderately degraded due to motion artifact.* 1.No acute fundings. 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 Narrative 09/07/2020 2:17 PM EST COMPARISON: MRI brain 11/17/2017. CT brain 08/01/2019. TECHNIQUE: Exam performed on a 1.5 Franchesca high-field MRI scanner. Axial T1, T2, T2*, T2 FLAIR and diffusion-weighted imaging with ADC map, sagittal T1 sequences were obtained. MRI HEAD FINDINGS: *Image quality is moderately degraded due to motion artifact.* Brain: No cerebellar tonsil herniation. Pituitary gland is not enlarged. No restricted diffusion to indicate acute or subacute ischemia. No intraparenchymal susceptibility artifact to indicate hemorrhage. Stable moderate chronic ischemic disease with T2 hyperintense subcortical and deep white matter signal abnormalities and moderate-sized anterior right basal ganglia lacunar infarct. No mass, mass effect, midline shift or extra-axial fluid collections. Ventricles: No hydrocephalus. Mild ventricular enlargement due to atrophy. Vasculature: Normal vascular flow-voids. Orbits: Normal. Mastoids/Middle Ear/Paranasal Sinuses: Chronic trace left mastoid fluid. Soft Tissues: Unremarkable. Bone Marrow: Incidental chronic frontal hyperostosis. Procedure Note Abdiaziz Posada MD - 09/07/2020 COMPARISON: MRI brain 11/17/2017. CT brain 08/01/2019. TECHNIQUE: Exam performed on a 1.5 Franchesca high-field MRI scanner. AxialT1, T2, T2*, T2 FLAIR and diffusion-weighted imaging with ADC map,sagittal T1 sequences were obtained. MRI HEAD FINDINGS: *Image quality is moderately degraded due to motion artifact.* Brain: No cerebellar tonsil herniation. Pituitary gland is not enlarged.No restricted diffusion to indicate acute or subacute ischemia. Nointraparenchymal susceptibility artifact to indicate hemorrhage. Stablemoderate chronic ischemic disease with T2 hyperintense subcortical anddeep white matter signal abnormalities and moderate- sized anterior rightbasal ganglia lacunar infarct. No mass, mass effect, midline shift orextra-axial fluid collections. Ventricles: No hydrocephalus. Mild ventricular enlargement due toatrophy. Vasculature: Normal vascular flow-voids. Orbits: Normal. Mastoids/Middle Ear/Paranasal Sinuses: Chronic trace left mastoid fluid. Soft Tissues: Unremarkable. Bone Marrow: Incidental chronic frontal hyperostosis. IMPRESSION: *Image quality is moderately degraded due to motion artifact.* 1.No acute fundings. 2.Moderate chronic white matter microangiopathy and right basal ganglialacunar infarct. Fernando Nice MD IMG MR HEAD/NECK Final Resul t documented in this encounter Visit Diagnoses Diagnosis HX: breast cancer- Primary Personal history of malignant neoplasm of breast HX: breast cancer Personal history of malignant neoplasm of breast documented in this encounter Additional Health Concerns [...] documented as of this encounter Care Teams Body And Fender Worker Relationship Specialty Start Date End Date Dyan Matias, RN [address] [place] [address] [email or web address] PCP - General Internal Medicine 01/10/19 09/13/20 Cliff Walsh MD [address] [place] [address] [email or web address] PCP - General Internal Medicine 09/14/20 Jose Becerra MD [address] [place] [address] [email or web address] Medicine 12/04/18 Letitia Odom MD [address] [place] [address] [email or web address] Insurance Assigned Provider 10/30/19 10/31/20 Chinyere Reilly MD [address] [place] [address] [email or web address] Consulting Provider Geriatric Medicine 03/20/20 03/26/22 Marjorie Pappas NP [address] [place] [address] [email or web address] Nurse Practitioner Oncology 09/11/20 Cliff Walsh MD [address] [place] [address] [email or web address] Insurance Assigned Provider 10/28/23 Chinyere Barajas, RN [address] [place] [address] [email or web address] [facility] Rehabilitation Services Director 09/27/21 11/07/21 documented as of this encounter Additional Source Comments The information contained in this document represents components of the legal health record. It is not the complete legal health record.[facility]
--- OUTSIDE RECORDS SUMMARY | 2025-06-25 22:18 | XMS_ITS | Encounter Summary ---
Author Organization [facility] Address [address] [facility] [address] [place] [address] Phone Care Team Providers Care Weigh Tank Operator Name Role Phone Jose Becerra MD Unavailable Chinyere Reilly MD Unavailable [phone] Marjorie Pappas PACKING AND STAMPING MACHINE OPERATOR Unavailable [phone] Cliff Walsh MD Primary Care Provider Cliff Walsh MD Unavailable [phone] Encounter Details Date Type Department Care Team (Late st Contact Info) Description 03/24/2022 Procedure Pass [facility], [facility] [address] [place] [address] Social History Tobacco Use Types Packs/Day Years [...] 11:00 AM EDT Jammie Bowen RN * [place] Suicide Severity Rating Scale (Screener/Recent Self-Report) Question Answer Date of Assessment Author 1. Wish to be (Past 1 Month) No 022 11:00 AM EDT Jammie Fuentes RN 2. Non-Specific Active Suici anisha Thoughts (Past 1 Month) No 03/24/2022 11:00 AM EDT Kiana Fuentes RN 6. Suicidal Behavior (Lifetime) No 11:00 AM EDT Jammie Fuenets RN documented as of this encounter Plan of Treatment Upcoming Encounters Date Type Department Care Team (Late st Contact Info) Description 10/14/2024 Procedure Pass [facility] [address] [place] [address] 07/01/2025 2:00 PM EST Office Visit [facility] [address] [place] [address] [place] [address] Cliff Walsh MD [address] [place] [address] 10/01/2025 11:20 AM EDT Office Visit [facility] [address] [place] [address] [place] [address] Wen Parikh MD [address] [place] [address] 10/07/2025 12:45 PM EDT Appointment Echo Lab [address] [place] [address] Eliseo Jacobs DO 22 [facility] [address] [place] [address] 10/21/2025 12:30 PM EDT Office Visit [facility] [address] [facility] [address]rd [facility], [address] [place] [address] Eliseo Jacobs DO [address] [address] documented as of this encounter Visit Diagnoses Not on filedocumented in this encounter Additional Health Concerns Infection Onset 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 11/27/2021 11/27/2023 1:22 AM EDT Assessment Noted Time PHQ-9 Depression Total Score: 11 020 9:53 AM EST PHQ-2 Depression Total Score: 0 12/10/19 10:22 AM EDT documented as of this encounter Care Teams Weigh Tank Operator Relationship Specialty Start Date End Date Cliff Walsh MD [address] [place] [address] PCP - General Internal Medicine 09/14/20 Jose Becerra MD Family Medicine 12/04/18 Chinyere Reilly MD Consulting Provider Geriatric Medicine 03/20/20 03/26/22 Marjorie Pappas NP [address] [place] [address] Nurse Practitioner Oncology 09/11/20 Cliff Walsh MD [address] [place] [address] Insurance Assigned Provider 10/28/23 documented as of this encounter Additional Source Comments The information contained in this document represents components of the legal health record. It is not the complete legal health record.[facility]
--- OUTSIDE RECORDS SUMMARY | 2025-06-25 22:18 | XMS_ITS | Encounter Summary ---
Author Organization [facility] Address [address] [facility] [address] [place] [address] Phone Care Team Providers Care Abrasive Mixer Name Role Phone Jose Becerra MD Unavailable Chinyere Reilly MD Unavailable [phone] Marjorie Pappas EXTENDER Unavailable [phone] Cliff Walsh MD Primary Care Provider Cliff Walsh MD Unavailable [phone] Encounter Details Date Type Department Care Team (Late st Contact Info) Description 03/24/2022 Procedure Pass [facility], Ct Scan - [facility] [address] [place] [address] Social History Tobacco Use Types Packs/Day Years [...] 11:00 AM EDT Jammie Bowen, MERT * [place] Suicide Severity Rating Scale (Screener/Recent Self-Report) Question [...] Info) Description 10/14/2024 Procedure Pass Echo Lab [address] [place] [address] 07/01/2025 2:00 PM EST Office Visit [facility] [address] [place] [address] Cliff Walsh MD [address] [place] [address] 10/01/2025 11:20 AM EDT Office Visit [facility] [address] [place] [address] [place] [address] Wen Parikh MD [address] [place] [address] 10/07/2025 12:45 PM EDT Appointment Echo Lab [address] [place] [address] Eliseo Jacobs DO [address] [facility] [address] [place] [address] 10/21/2025 12:30 PM EDT Office Visit [facility] [address] [facility] 3rd [facility], [address] [place] [address] Eliseo Jacobs DO 22 [facility] [address] [place] [address] documented as of this encounter Visit Diagnoses Not on filedocumented in this encounter Additional Health Concerns Infection Onset 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 11/27/2021 11/27/2023 1:22 AM EDT Assessment Noted Time PHQ-9 Depression Total Score: 11 020 9:53 AM EST PHQ-2 Depression Total Score: 0 12/10/19 21 10:22 AM EDT documented as of this encounter Care Teams Abrasive Mixer Relationship Specialty Start Date End Date Cliff Walsh MD [address] [place] [address] PCP - General Internal Medicine 09/14/20 Jose Becerra MD Family Medicine 12/04/18 Chinyere Reilly MD Consulting Provider Geriatric Medicine 03/20/20 03/26/22 Marjorie Pappas NP [address] [place] [address] Nurse Practitioner Oncology 09/11/20 Cliff Walsh MD [address] [place] [address] [email or web address] Insurance Assigned Provider 10/28/23 documented as of this encounter Additional Source Comments The information contained in this document represents components of the legal health record. It is not the complete legal health record.[facility]
--- OUTSIDE RECORDS SUMMARY | 2025-06-25 22:19 | XMS_ITS | Encounter Summary ---
Author Organization [facility] Address [address] [place] [address] Phone Care Team Providers Care Diamond Mounter Name Role Phone Dyan Matias RNfinancial management Provider Jose Becerra MD Unavailable Letitia Odom MD Unavailable [phone] Chinyere Reilly MD Unavailable Marjorie Pappas ENVIRONMENTAL ANALYST Unavailable [phone] Cliff Walsh MD Primary Care Provider Cliff Walsh MD Unavailable [phone] Chinyere Barajas RN Unavailable [phone] Encounter Details Date Type Department Care Team (Late st Contact Info) Description 04/26/2020 Procedure Pass [facility], Ct Scan - [facility] 30 [place] [address] Social History Tobacco Use Types Packs/Day Years [...] Info) Description 10/14/2024 Procedure Pass Echo Lab [address] [place] [address] 07/01/2025 2:00 PM EST Office Visit [facility] [address] [place] [address] [place] [address] Cliff Walsh MD [address] [place] [address] 2[address] [place] [address] 10/01/2025 11:20 AM EDT Office Visit [facility] [address] [place] [address] [place] [address] Wen Parikh MD [address] [place] [address] 10/07/2025 12:45 PM EDT Appointment Echo Lab [address] [place] [address] Eliseo Jacobs [address] [address] 10/21/2025 12:30 PM EDT Office Visit [facility] [address] [place] [address], [address] [address] Eliseo Jacobs DO [address] [place] [address] documented as of this encounter Visit Diagnoses Not on filedocumented in this encounter Additional Health Concerns Infection Onset Date Last Indicated Resolved Time CoV-Risk Comment:Negative 04/2604/23/2020 04/26/2020 04/28/2020 2:27 PM EDT CoV-Risk Comment:Per Ambulatory Triage Form 08/05/2021 08/05/202108/15 1:23 AM EST CoV-Risk Comment:Per note documentation 11/26/2021 11/26/2021 8:25 PM EDT 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 11/27/2021 11/27/2023 1:22 AM EDT Assessment Noted Time PHQ-2 Depression Total Score: 0 03/04/20 3:04 PM EDT documented as of this encounter Care Teams Diamond Mounter Relationship Specialty Start Date End Date Dyan Matias RN [address] [place] [address] [email or web address] PCP - General Internal Medicine 01/10/19 09/13/20 Cliff Walsh MD [address] [place] [address] PCP - General Internal Medicine 09/14/20 Jose Becerra MD [address] [place] [address] Family Medicine 12/04/18 Letitia Odom MD [address] [place] [address] Insurance Assigned Provider 10/30/19 10/31/20 Chinyere Reilly MD [address] [place] [address] Consulting Provider Geriatric Medicine 03/20/20 03/26/22 Marjorie Pappas NP [address] [place] [address] [email or web address] Nurse Practitioner Oncology 09/11/20 Cliff Walsh MD [address] [place] [address], [address] [place] [address] Insurance Assigned Provider 10/28/23 Chinyere Barajas, RN [address] [place] [address] [email or web address] PHCM Ground Operations Supervisor 09/27/21 11/07/21 documented as of this encounter Additional Source Comments The information contained in this document represents components of the legal health record. It is not the complete legal health record.[facility]
--- OUTSIDE RECORDS SUMMARY | 2025-06-25 22:19 | XMS_ITS | Encounter Summary ---
Author Organization [facility] Address [address] [facility] [address] [place] [address] Phone Care Team Providers Care Handtools Repairer Name Role Phone Pcp, Not Required Primary Care Provider Unavaila ble Mariajose Smallwood [facility] Primary Care Provider Joes Becerra MD Primary Care Provider [phone] Mariajose Smallwood [facility] Primary Care Provider Dyan Matias operating room aide Provider [phone] Julia Callahan DO Unavailable [phone] Mariajose Smallwood [facility] Unavailable [phone] Pcp, Not Required Unavailable Unavailable Jose Becerra MD Unavailable Letitia Odom MD Unavailable [phone] Chinyere Reilly MD Unavailable [phone] Marjorie Pappas AMPLIFIER MECHANIC Unavailable [phone] Cliff Walsh MD Primary Care Provider Cliff Walsh MD Unavailable [phone] Chinyere Barajas RN Unavailable Encounter Details Date Type Department Care Team (Late Contact Info) Description 03/23/2018 Transcribe Orders [facility] 30 [place] [address] Jose Becerra MD [address] [facility], [address] [place] [address] Muscle weakness (Primary Dx); Iron deficiency anemia, unspecified iron deficiency anemia type Social History Tobacco Use Types Packs/Day Years Used Date Smoking Tobacco: Never Assessed Comments No Sex and Gender Information Value Date Recorded Sex Assigned at Female 11/16/2017 5:42 PM EDT Legal Sex Female 10:08 PM EDT Gender Identity Female 11/16/2017 5:42 PM EDT Sexual Orientation Straight 11/16/2017 5: 42 PM EDT documented as of this encounter Plan of Treatment Upcoming Encounters Date Type Department Care Team (Late Contact Info) Description 10/14/2024 Procedure Pass [facility] [address] [address] 07/01/2025 2:00 PM EST Office Visit [facility] [address] [place] [address] [place] [address] Cliff Walsh MD [address] [place] [address] 2[address] [place] [address] 10/01/2025 11:20 AM EDT Office Visit [facility] [address] [place] [address] [place] [address] Wen Parikh MD [address] [place] [address] 3[address] [place] [address] 10/07/2025 12:45 PM EDT Appointment Echo Lab [address] [place] [address] Eliseo Jacobs DO [address] [place] [address] [address] [place] [address] 10/21/2025 12:30 PM EDT Office Visit [facility] [address] [facility] 3rd Floor, [address] [place] [address] Nnamdiayo Eliseo Rendon, DO 22 [facility] [address] [place] [address] [email or web address] documented as of this encounter Results * (ABNORMAL) CBC (03/23/2018 6:32 AM EDT) WBC 6.97 3.40 - 11.20 K/uL [facility] RBC 4.30 3.80 - 4.80 M/uL [facility] HGB 11.5(L) 12.0 - 15.0 g/dL [facility] HCT 35.2(L) 36.0 - 46.0 % [facility] PLT 187 130 - 400 K/uL [facility] MCV 81.9 79.0 - 98.0 fL [facility] MCH 26.7(L) 27.0 - 34.8 pg [facility] MCHC 32.7 31.5 - 36.0 g/dL [facility] RDW 15.3(H) 10.8 - 14.6 % [facility] MPV 10.9 9.4 - 12.4 fl [facility] NRBC 2.60 /100 WBCs [facility] ABSOLUTE NRBC 0.18 K/uL [facility] Blood 03/23/2018 6:32 AM EDT 03/23/2018 12:21 PM EDT us Jose Becerra MD LAB BLOOD BKR ORDERABLES Final R esult [facility] [address] [place] [address] * (ABNORMAL) Basic metabolic panel (03/23/2018 6:32 AM EDT) SODIUM 145 133 - 146 mmol/L [facility] CHLORIDE 106 96 - 108 mmol/L [facility] POTASSIUM 4.0 3.3 - 5.1 mmol/L [facility] CO2 26 21 - 35 mmol/L [facility] BUN 15 6 - 19 mg/dL [facility] CREATININE 0.90 0.5 - 1.5 mg/dL [facility] GLUCOSE 104(H) 70 - 99 mg/dL [facility] CALCIUM 8.7 8.4 - 10.3 mg/dL [facility] EGFR 64 >59 mL/min/1.7 3m2 [facility] Comment:If patient is black, multiply result by 1.159. Estimated glomerular filtration rate calculated using the CKD-EPI equation. ANION GAP 17 10 - 20 mmol/L [facility] Blood 03/23/2018 6:32 AM EDT 03/23/2018 12:21 PM EDT us Jose Becerra MD LAB BLOOD BKR ORDERABLES Final R esult [facility] [address] [place] [address] documented in this encounter Visit Diagnoses Diagnosis Muscle weakness- Primary Muscle weakness (generalized) Iron deficiency anemia, unspecified iron deficiency anemia type documented in this encounter Additional Health Concerns Infection Onset Date Last Indicated Resolved Time CoV-Risk Comment:Negative 04/2604/23/2020 04/26/2020 04/28/2020 2:27 PM EDT CoV-Risk Comment:Per Ambulatory Triage Form 08/05/2021 08/05/202108/15 1:23 AM EST CoV-Risk Comment:Per note documentation 11/26/2021 11/26/2021 8:25 PM EDT 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 11/27/2021 11/27/2023 1:22 AM EDT documented as of this encounter Care Teams Handtools Repairer Relationship Specialty Start Date End Date Pcp, Not Required [address] [place] [address] PCP - General 03/23/18 08/06/18 Mariajose Smallwood FNP [address] [place] [address], [address] [place] [address] [email or web address] PCP - General Family Medicine 08/07/18 08/09/18 Jose Becerra MD [address] [place] [address] 7 JOHANNY Garcia [address] [email or web address] PCP - General Family Medicine 08/10/18 12/03/18 Mariajose Smallwood FNP [address] [place] [address] 7 JOHANNY Garcia [address] [email or web address] PCP - General Family Medicine 12/04/18 01/09/19 Dyan Matias RN [address] [place] [address] [email or web address] PCP - General Internal Medicine 01/10/19 09/13/20 Cliff Walsh MD [address] [place] [address], 2nd [place] [address] [email or web address] PCP - General Internal Medicine 09/14/20 Julia Callahan DO [address] [place] [address] 03/23/18 08/06/18 Mariajose Smallwood FNP [address] [place] [address] 7 JOHANNY Garcia [address] [email or web address] Family Medicine 08/10/18 12/03/18 Pcp, Not Required [address] [place] [address] 08/07/18 08/09/18 Jose Becerra MD [address] [place] [address] 7 [place] [address] Family Medicine 12/04/18 Letitia Odom MD [address] [place] [address] Insurance Assigned Provider 10/30/19 10/31/20 Chinyere Reilly MD [address] [place] [address] Consulting Provider Geriatric Medicine 03/20/20 03/26/22 Marjorie Pappas NP [address] [place] [address] Nurse Practitioner Oncology 09/11/20 Cliff Walsh MD [address] [place] [address] Insurance Assigned Provider 10/28/23 Chinyere Barajas, RN [address] [place] [address] PHCM Photo Offset Printer 09/27/21 11/07/21 documented as of this encounter Additional Source Comments The information contained in this document represents components of the legal health record. It is not the complete legal health record.[facility]
--- OUTSIDE RECORDS SUMMARY | 2025-06-25 22:19 | XMS_ITS | Encounter Summary ---
Author Organization [facility] Address [address] [facility] [address] [place] [address] Phone Care Team Providers Care Oxygen Therapy Teacher Name Role Phone Jose Becerra MD Primary Care Provider Mariajose Smallwood [facility] Primary Care Provider [phone] Dyan Matias latin professor Provider [phone] Mariajose Smallwood [facility] Unavailable [phone] Jose Becerra MD Unavailable Letitia Odom MD Unavailable [phone] Chinyere Reilly MD Unavailable [phone] Marjorie Pappas DECORATIVE ENGRAVER APPRENTICE Unavailable [phone] Cliff Walsh MD Primary Care Provider Cliff Walsh MD Unavailable [phone] Chinyere Barajas RN Unavailable [phone] Encounter Details Date Type Department Care Team (Late st Contact Info) Description 08/10/2018 Transcribe Orders [facility] Specimen Processing [address] [place] [address] Jose Becerra MD 38 [facility]. 204, [address] [place] [address] Flu-like symptoms (Primary Dx) Social History Tobacco Use Types [...] Info) Description 10/14/2024 Procedure Pass Echo Lab [address] [place] [address] 07/01/2025 2:00 PM EST Office Visit [facility] [address] [place] [address] [place] [address] Clfif Walsh MD [address] [place] [address] 10/01/2025 11:20 AM EDT Office Visit [facility] [address] [place] [address] [place] [address] Wen Parikh MD [address] [place] [address] 3rd [place] [address] 10/07/2025 12:45 PM EDT Appointment Echo Lab [address] [place] [address] Eliseo Jacobs DO [address] [facility] [address] [place] [address] 10/21/2025 12:30 PM EDT Office Visit [facility] [address] [facility] 3rd Floor, [address] [place] [address] Eliseo Jacobs, [address] [facility] [address] [place] [address] [email or web address] documented as of this encounter Results * (ABNORMAL) Rapid influenza A and B (08/10/2018 5:12 PM EST) Influenza A Ag Positive(A) Negative [facility] Comment: ALEX Islas RN, CECA, 1815, [id number] CALLED TO AND REPEATED BY Influenza B Ag Negative Negative [facility] Other (Nasal) 08/10/2018 5:1 2 PM EST 08/10/2018 5:14 PM EST us Jose Becerra MD MICROBIOLOGY - GENERAL ORDERABLE S Final Result Performing Organization Address City/State/[facility] Co de Phone Number [facility] [address] [place] [address] documented in this encounter Visit Diagnoses Diagnosis Flu-like symptoms- Primary documented in this encounter Additional Health Concerns Infection Onset Date Last Indicated Resolved Time CoV-Risk Comment:Negative 04/2604/23/2020 04/26/2020 04/28/2020 2:27 PM EDT CoV-Risk Comment:Per Ambulatory Triage Form 08/05/2021 08/05/202108/15 1:23 AM EST CoV-Risk Comment:Per note documentation 11/26/2021 11/26/2021 8:25 PM EDT 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 11/27/2021 11/27/2023 1:22 AM EDT documented as of this encounter Care Teams Oxygen Therapy Teacher Relationship Specialty Start Date End Date Jose Becerra MD [email or web address] PCP - General Family Medicine 08/10/18 12/03/18 Mariajose Smallwood FNP [address] [place] [address], [address] [place] [address] [email or web address] PCP - General Family Medicine 12/04/18 01/09/19 Dyan Matias, MERT [address] [place] [address] [email or web address] PCP - General Internal Medicine 01/10/19 09/13/20 Cliff Walsh MD [address] [place] [address] [email or web address] PCP - General Internal Medicine 09/14/20 Mariajose Smallwood FNP [address] [place] [address] 7 [place] [address] [email or web address] Family Medicine 08/10/18 12/03/18 Jose Becerra MD [email or web address] Family Medicine 12/04/18 Letitia Odom MD [address] [place] [address] [email or web address] Insurance Assigned Provider 10/30/19 10/31/20 Chinyere Reilly MD [address] [place] [address] [email or web address] Consulting Provider Geriatric Medicine 03/20/20 03/26/22 Marjorie Pappas, DECORATIVE ENGRAVER APPRENTICE [address] [place] [address] [email or web address] Nurse Practitioner Oncology 09/11/20 Cliff Walsh MD [address] [place] [address], 2nd [place] [address] Insurance Assigned Provider 10/28/23 Chinyere Barajas RN [address] [place] [address] [email or web address] PHCM Materials Mgmt Tech 09/27/21 11/07/21 documented as of this encounter Additional Source Comments The information contained in this document represents components of the legal health record. It is not the complete legal health record.[facility]
--- OUTSIDE RECORDS SUMMARY | 2025-06-25 22:19 | XMS_ITS | Encounter Summary ---
Author Organization [facility] Address [address] [address] [place] [address] Phone Care Team Providers Care Bag Builder Name Role Phone Pcp, Not Required Primary Care Provider Unavaila ble Mariajose Smallwood [facility] Primary Care Provider Jose Becerra MD Primary Care Provider [phone] Mariajose Smallwood [facility] Primary Care Provider Dyan Matias grain drier operator Provider [phone] Julia Callahan DO Unavailable [phone] Mariajose Smallwood [facility] Unavailable [phone] Pcp, Not Required Unavailable Unavailable Jose Becerra MD Unavailable Letitia Odom MD Unavailable [phone] Chinyere Reilly MD Unavailable [phone] Marjorie Pappas WASH HOUSE WORKER Unavailable [phone] Cliff Walsh MD Primary Care Provider [phone] Cliff Walsh MD Unavailable Chinyere Barajas RN Unavailable Encounter Details Date Type Department Care Team (Late Contact Info) Description 05/18/2018 Transcribe Orders [facility] Specimen Processing 30 [place] [address] Jose Becerra MD 38 [facility], [address] [place] [address] KIRAN (acute kidney injury) (Primary Dx) Social History Tobacco Use Types [...] Info) Description 10/14/2024 Procedure Pass Echo Lab [address] [place] [address] 07/01/2025 2:00 PM EST Office Visit [facility] [address] [place] [address] Cliff Walsh MD [address] [place] [address] 2nd [place] [address] 10/01/2025 11:20 AM EDT Office Visit [facility] [address] [place] [address] [place] [address] Wen Parikh MD [address] [place] [address] 3rd [place] [address] 10/07/2025 12:45 PM EDT Appointment Echo Lab [place] [place] [address] Eliseo Jacobs, DO [address] [facility] [address] [place] [address] 10/21/2025 12:30 PM EDT Office Visit [facility] [address] Floor, [address] [place] [address] Eliseo Jacobs, DO [address] [facility] [address] [place] [address] [email or web address] documented as of this encounter Results * (ABNORMAL) Basic metabolic panel (05/18/2018 5:10 AM EDT) SODIUM 143 133 - 146 mmol/L [facility] CHLORIDE 104 96 - 108 mmol/L [facility] POTASSIUM 4.4 3.3 - 5.1 mmol/L [facility] CO2 29 21 - 35 mmol/L [facility] BUN 16 6 - 19 mg/dL [facility] CREATININE 0.90 0.5 - 1.5 mg/dL [facility] GLUCOSE 115(H) 70 - 99 mg/dL [facility] CALCIUM 8.9 8.4 - 10.3 mg/dL [facility] EGFR 64 >59 mL/min/1.7 3m2 [facility] Comment:If patient is black, multiply result by 1.159. Estimated glomerular filtration rate calculated using the CKD-EPI equation. ANION GAP 14 10 - 20 mmol/L [facility] Blood 05/18/2018 5:10 AM EDT 05/18/2018 9:04 AM EDT us Jose Becerra MD LAB BLOOD BKR ORDERABLES Final R esult [facility] [address] [place] [address] * (ABNORMAL) CBC (05/18/2018 5:10 AM EDT) WBC 6.42 3.40 - 11.20 K/uL [facility] RBC 4.44 3.80 - 4.80 M/uL [facility] HGB 11.7(L) 12.0 - 15.0 g/dL [facility] HCT 36.5 36.0 - 46.0 % [facility] PLT 187 130 - 400 K/uL [facility] MCV 82.2 79.0 - 98.0 fL [facility] MCH 26.4(L) 27.0 - 34.8 pg [facility] MCHC 32.1 31.5 - 36.0 g/dL [facility] RDW 15.4(H) 10.8 - 14.6 % [facility] MPV 10.8 9.4 - 12.4 fl [facility] NRBC 0.00 /100 WBCs [facility] ABSOLUTE NRBC 0.00 K/uL [facility] Blood 05/18/2018 5:10 AM EDT 05/18/2018 9:04 AM EDT us Jose Becerra MD LAB BLOOD BKR ORDERABLES Final R esult [facility] [address] [place] [address] documented in this encounter Visit Diagnoses Diagnosis KIRAN (acute kidney injury)- Primary documented in this encounter Additional Health Concerns Infection Onset Date Last Indicated Resolved Time CoV-Risk Comment:Negative 04/2604/23/2020 04/26/2020 04/28/2020 2:27 PM EDT CoV-Risk Comment:Per Ambulatory Triage Form 08/05/2021 08/05/202108/15 1:23 AM EST CoV-Risk Comment:Per note documentation 11/26/2021 11/26/2021 8:25 PM EDT 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 11/27/2021 11/27/2023 1:22 AM EDT documented as of this encounter Care Teams Bag Builder Relationship Specialty Start Date End Date Pcp, Not Required [address] [place] [address] PCP - General 03/23/18 08/06/18 Mariajose Smallwood FNP [address] [place] [address] 7 [place] [address] [email or web address] PCP - General Family Medicine 08/07/18 08/09/18 Jose Becerra MD [address] [place] [address] 7 [place] [address] [email or web address] PCP - General Family Medicine 08/10/18 12/03/18 Mariajose Smallwood FNP [address] [place] [address] 7 [place] [address] [email or web address] PCP - General Family Medicine 12/04/18 01/09/19 Dyan Matias RN [address] [place] [address] [email or web address] PCP - General Internal Medicine 01/10/19 09/13/20 Cliff Walsh MD [address] [place] [address], 2nd [place] [address] [email or web address] PCP - General Internal Medicine 09/14/20 Julia Callahan DO [address] [place] [address] 03/23/18 08/06/18 Mariajose Smallwood FNP [address] [place] [address] 7 [place] [address] [email or web address] Family Medicine 08/10/18 12/03/18 Pcp, Not Required [address] [place] [address] 08/07/18 08/09/18 Jose Becerra MD [address] [place] [address] 7 [place] [address] Family Medicine 12/04/18 Letitia Odom MD [address] [place] [address] Insurance Assigned Provider 10/30/19 10/31/20 Chinyere Reilly MD [address] [place] [address] Consulting Provider Geriatric Medicine 03/20/20 03/26/22 Marjorie Pappas NP [address] [place] [address] Nurse Practitioner Oncology 09/11/20 Cliff Walsh MD [address] [place] [phone] Insurance Assigned Provider 10/28/23 Chinyere Barajas RN [address] [place] [address] PHCM Business Resiliency Manager 09/27/21 11/07/21 documented as of this encounter Additional Source Comments The information contained in this document represents components of the legal health record. It is not the complete legal health record.[facility]
--- OUTSIDE RECORDS SUMMARY | 2025-06-25 22:19 | XMS_ITS | Encounter Summary ---
Author Organization [facility] Address [address] [place] [address] Phone Care Team Providers Care Tow Bar Driver Name Role Phone Pcp, Not Required Primary Care Provider Unavaila ble Mariajose Smallwood [facility] Primary Care Provider Jose Becerra MD Primary Care Provider [phone] Mariajose Smallwood [facility] Primary Care Provider [phone] Dyan Matias cable systems installer Provider [phone] Julia Callahan DO Unavailable [phone] Mariajose Smallwood [facility] Unavailable [phone] Pcp, Not Required Unavailable Unavailable Jose Becerra MD Unavailable Letitia Odom MD Unavailable [phone] Chinyere Reilly MD Unavailable [phone] Marjorie Pappas OR MANAGER Unavailable Cliff Walsh MD Primary Care Provider Cliff Walsh MD Unavailable Chinyere Barajas RN Unavailable [phone] Encounter Details Date Type Department Care Team (Late Contact Info) Description 04/16/2018 Transcribe Orders [facility] Specimen Processing 30 [place] [address] Jose Becerra MD 38 [facility] [address], [address] [place] [address] Muscle weakness (Primary Dx); Heart failure, unspecified HF chronicity, unspecified heart failure type; Iron deficiency; Anemia, unspecified type Social History Tobacco Use Types Packs/Day [...] Info) Description 10/14/2024 Procedure Pass Echo Lab [address] [place] [address] 07/01/2025 2:00 PM EST Office Visit [facility] [address] [place] [address] [place] [address] Cliff Walsh MD [address] [place] [address] 10/01/2025 11:20 AM EDT Office Visit [facility] [address] [place] [address] [place] [address] Wen Parikh MD [address] [place] [address] 10/07/2025 12:45 PM EDT Appointment Echo Lab [place] [address] [place] [address] Eliseo Jacobs, DO [address] [facility] [address] [place] [address] [email or web address] 10/21/2025 12:30 PM EDT Office Visit [facility] [address], [address] [place] [address] Eliseo Jacobs, DO [address] [facility] [address] [place] [address] documented as of this encounter Results * (ABNORMAL) Basic metabolic panel (04/16/2018 4:10 AM EDT) SODIUM 140 133 - 146 mmol/L [facility] CHLORIDE 100 96 - 108 mmol/L [facility] POTASSIUM 4.2 3.3 - 5.1 mmol/L [facility] CO2 27 21 - 35 mmol/L [facility] BUN 15 6 - 19 mg/dL [facility] CREATININE 0.90 0.5 - 1.5 mg/dL [facility] GLUCOSE 119(H) 70 - 99 mg/dL [facility] CALCIUM 8.9 8.4 - 10.3 mg/dL [facility] EGFR 64 >59 mL/min/1.7 3m2 [facility] Comment:If patient is black, multiply result by 1.159. Estimated glomerular filtration rate calculated using the CKD-EPI equation. ANION GAP 17 10 - 20 mmol/L [facility] Blood 04/16/2018 4:10 AM EDT 04/16/2018 8:05 AM EDT us Jose Becerra MD LAB BLOOD BKR ORDERABLES Final R esult [facility] [address] [place] [address] * (ABNORMAL) CBC (04/16/2018 4:10 AM EDT) WBC 6.52 3.40 - 11.20 K/uL [facility] RBC 4.36 3.80 - 4.80 M/uL [facility] HGB 11.4(L) 12.0 - 15.0 g/dL [facility] HCT 35.6(L) 36.0 - 46.0 % [facility] PLT 212 130 - 400 K/uL [facility] MCV 81.7 79.0 - 98.0 fL [facility] MCH 26.1(L) 27.0 - 34.8 pg [facility] MCHC 32.0 31.5 - 36.0 g/dL [facility] RDW 14.9(H) 10.8 - 14.6 % [facility] MPV 10.4 9.4 - 12.4 [facility] NRBC 0.00 /100 WBCs [facility] ABSOLUTE NRBC 0.00 K/uL [facility] Blood 04/16/2018 4:10 AM EDT 04/16/2018 8:05 AM EDT us Jose Becerra MD LAB BLOOD BKR ORDERABLES Final R esult Performing Organization Address City/State/[facility] Co de Phone Number [address] [address] documented in this encounter Visit Diagnoses Diagnosis Muscle weakness- Primary Muscle weakness (generalized) Heart failure, unspecified HF chronicity, unspecified heart failure type Iron deficiency Disorders of iron metabolism Anemia, unspecified type documented in this encounter Additional Health Concerns Infection Onset Date Last Indicated Resolved Time CoV-Risk Comment:Negative 04/2604/23/2020 04/26/2020 04/28/2020 2:27 PM EDT CoV-Risk Comment:Per Ambulatory Triage Form 08/05/2021 08/05/202108/15 1:23 AM EST CoV-Risk Comment:Per note documentation 11/26/2021 11/26/2021 8:25 PM EDT 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 11/27/2021 11/27/2023 1:22 AM EDT documented as of this encounter Care Teams Tow Bar Driver Relationship Specialty Start Date End Date Pcp, Not Required [address] [place] [address] PCP - General 03/23/18 08/06/18 Mariajose Smallwood FNP [address] [place] [address] 7 [place] [address] [email or web address] PCP - General Family Medicine 08/07/18 08/09/18 Jose Becerra MD [address] [place] [address] 7 [place] [address] PCP - General Family Medicine 08/10/18 12/03/18 Mariajose Smallwood FNP [address] [place] [address] 7 [place] [address] PCP - General Family Medicine 12/04/18 01/09/19 Dyan Matias RN [address] [place] [address] PCP - General Internal Medicine 01/10/19 09/13/20 Cliff Walsh MD [address] [place] [address], 2nd [place] [address] PCP - General Internal Medicine 09/14/20 Julia Callahan DO [address] [place] [address] 03/23/18 08/06/18 Mariajose Smallwood FNP [address] [place] [address] 7 [place] [address] Family Medicine 08/10/18 12/03/18 Pcp, Not Required [address] [place] [address] 08/07/18 08/09/18 Jose Becerra MD [address] [place] [address] [address] [place] [address] Family Medicine 12/04/18 Letitia Odom MD [address] [place] [phone] Insurance Assigned Provider 10/30/19 10/31/20 Chinyere Reilly MD [address] [place] [address] Consulting Provider Geriatric Medicine 03/20/20 03/26/22 Marjorie Pappas NP [address] [place] [address] Nurse Practitioner Oncology 09/11/20 Cliff Walsh MD [address] [place] [phone] Insurance Assigned Provider 10/28/23 Chinyere Barajas, RN [address] [place] [address] PHCM Top Frame Maker 09/27/21 11/07/21 documented as of this encounter Additional Source Comments The information contained in this document represents components of the legal health record. It is not the complete legal health record.[facility]
--- OUTSIDE RECORDS SUMMARY | 2025-06-25 22:19 | XMS_ITS | Encounter Summary ---
Author Organization [facility] Address [address] [facility] [address] [place] [address] Phone Care Team Providers Care Tariff Inspector Name Role Phone Julia Callahan DO Primary Care Provider [phone] Pcp, Not Required Primary Care Provider Unavaila ble Mariajose Smallwood [facility] Primary Care Provider [phone] Jose Becerra MD Primary Care Provider [phone] Mariajose Smallwood [facility] Primary Care Provider [phone] Dyan Matias cryptologic supervisor Provider [phone] Julia Callahan DO Unavailable [phone] Mariajose Smallwood [facility] Unavailable [phone] Pcp, Not Required Unavailable Unavailable Jose Becerra MD Unavailable Letitia Odom MD Unavailable [phone] Chinyere Reilly MD Unavailable [phone] Marjorie Pappas CONGRESSIONAL AIDE Unavailable [phone] Cliff Walsh MD Primary Care Provider [phone] Cliff Walsh MD Unavailable Chinyere Barajas RN Unavailable [phone] Encounter Details Date Type Department Care Team (Late Contact Info) Description 03/16/2018 Transcribe Orders [facility] Specimen Processing 30 [place] [address] Jose Becerra MD [address] [facility], [address] [place] [address] Muscle weakness (Primary Dx); NSTEMI (non-ST elevated myocardial infarction) Social History Tobacco Use Types Packs/Day Years [...] Info) Description 10/14/2024 Procedure Pass Echo Lab [address] [place] [address] 07/01/2025 2:00 PM EST Office Visit [facility] [address] [place] [address] [place] [address] Cliff Walsh MD [address] [place] [address] 10/01/2025 11:20 AM EDT Office Visit [facility] [address] [place] [address] [place] [address] Wen Parikh MD [address] [place] [address] 10/07/2025 12:45 PM EDT Appointment Echo Lab [facility] [address] [place], [place] [address] Eliseo Jacobs, DO [address] [facility] [address] [place] [address] 10/21/2025 12:30 PM EDT Office Visit [facility] [address] Floor, [address] [place] [address] Eliseo Jacobs, DO 22 [facility] [address] [place] [address] [email or web address] documented as of this encounter Results * Basic metabolic panel (03/16/2018 4:40 AM EDT) SODIUM 141 133 - 146 mmol/L [facility] CHLORIDE 102 96 - 108 mmol/L [facility] POTASSIUM 4.1 3.3 - 5.1 mmol/L [facility] CO2 25 21 - 35 mmol/L [facility] BUN 15 6 - 19 mg/dL [facility] CREATININE 0.90 0.5 - 1.5 mg/dL [facility] GLUCOSE 94 70 - 99 mg/dL [facility] CALCIUM 8.7 8.4 - 10.3 mg/dL [facility] EGFR 64 >59 mL/min/1.7 3m2 [facility] Comment:If patient is black, multiply result by 1.159. Estimated glomerular filtration rate calculated using the CKD-EPI equation. ANION GAP 18 10 - 20 mmol/L [facility] Blood 03/16/2018 4:40 AM EDT 03/16/2018 9:03 AM EDT us Jose Becerra MD LAB BLOOD BKR ORDERABLES Final R esult [facility] [address] [place] [address] * (ABNORMAL) CBC (03/16/2018 4:40 AM EDT) WBC 7.11 3.40 - 11.20 K/uL [facility] RBC 4.26 3.80 - 4.80 M/uL [facility] HGB 11.3(L) 12.0 - 15.0 g/dL [facility] HCT 34.5(L) 36.0 - 46.0 % [facility] PLT 187 130 - 400 K/uL [facility] MCV 81.0 79.0 - 98.0 fL [facility] MCH 26.5(L) 27.0 - 34.8 pg [facility] MCHC 32.8 31.5 - 36.0 g/dL [facility] RDW 15.2(H) 10.8 - 14.6 % [facility] MPV 10.3 9.4 - 12.4 [facility] NRBC 0.00 /100 WBCs [facility] ABSOLUTE NRBC 0.00 K/uL [facility] Blood 03/16/2018 4:40 AM EDT 03/16/2018 9:03 AM EDT us Jose Becerra MD LAB BLOOD BKR ORDERABLES Final R esult Performing Organization Address City/State/[facility] Co de Phone Number [address] [address] documented in this encounter Visit Diagnoses Diagnosis Muscle weakness- Primary Muscle weakness (generalized) NSTEMI (non-ST elevated myocardial infarction) Acute myocardial infarction, subendocardial infarction, episode of care unspecified documented in this encounter Additional Health Concerns Infection Onset Date Last Indicated Resolved Time CoV-Risk Comment:Negative 04/2604/23/2020 04/26/2020 04/28/2020 2:27 PM EDT CoV-Risk Comment:Per Ambulatory Triage Form 08/05/2021 08/05/202108/15 1:23 AM EST CoV-Risk Comment:Per note documentation 11/26/2021 11/26/2021 8:25 PM EDT 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 11/27/2021 11/27/2023 1:22 AM EDT documented as of this encounter Care Teams Tariff Inspector Relationship Specialty Start Date End Date Julia Callahan DO [address] [place] [address] PCP - General 05/11/17 03/22/18 Pcp, Not Required [address] [place] [address] PCP - General 03/23/18 08/06/18 Mariajose Smallwood FNP [address] [place] [address] 7 [place] [address] [email or web address] PCP - General Family Medicine 08/07/18 08/09/18 Jose Becerra MD [address] [place] [address] 7 [place] [address] [email or web address] PCP - General Family Medicine 08/10/18 12/03/18 Mariajose Smallwood FNP [address] [place] [address] 7 [place] [address] PCP - General Family Medicine 12/04/18 01/09/19 Dyan Matias RN [address] [place] [address] PCP - General Internal Medicine 01/10/19 09/13/20 Cliff Walsh MD [address] [place] [address], 2nd [place] [address] PCP - General Internal Medicine 09/14/20 Julia Callahan DO [address] [place] [address] 03/23/18 08/06/18 Mariajose Smallwood FNP [address] [place] [address] 7 [place] [address] [email or web address] Family Medicine 08/10/18 12/03/18 Pcp, Not Required [address] [place] [address] 08/07/18 08/09/18 Jose Becerra MD [address] [place] [address] 7 [place] [address] [email or web address] Family Medicine 12/04/18 Letitia Odom MD [address] [place] [address] [email or web address] Insurance Assigned Provider 10/30/19 10/31/20 Chinyere Reilly MD [address] [place] [address] [email or web address] Consulting Provider Geriatric Medicine 03/20/20 03/26/22 Marjorie Pappas, CONGRESSIONAL AIDE [address] [place] [address] [email or web address] Nurse Practitioner Oncology 09/11/20 Cliff Walsh MD [address] [place] [address] Insurance Assigned Provider 10/28/23 Chinyere Barajas RN [address] [place] [address] [email or web address] PHCM [facility] 09/27/21 11/07/21 documented as of this encounter Additional Source Comments The information contained in this document represents components of the legal health record. It is not the complete legal health record.[facility]
--- OUTSIDE RECORDS SUMMARY | 2025-06-25 22:19 | XMS_ITS | Encounter Summary ---
Author Organization [facility] Address [address] [place] [address] Phone Care Team Providers Care Slide Forming Machine Operator Name Role Phone Pcp, Not Required Primary Care Provider Unavaila ble Mariajose Smallwood [facility] Primary Care Provider Jose Becerra MD Primary Care Provider [phone] Mariajose Smallwood [facility] Primary Care Provider Dyan Matias internal security manager Provider [phone] Julia Callahan DO Unavailable [phone] Mariajose Smallwood [facility] Unavailable [phone] Pcp, Not Required Unavailable Unavailable Jose Becerra MD Unavailable Letitia Odom MD Unavailable [phone] Chinyere Reilly MD Unavailable [phone] Marjorie Pappas HEAD CD REACTOR OPERATOR Unavailable [phone] Cliff Walsh MD Primary Care Provider Cliff Walsh MD Unavailable [phone] Chinyere Barajas RN Unavailable [phone] Encounter Details Date Type Department Care Team (Late Contact Info) Description 04/16/2018 Transcribe Orders [facility] Specimen Processing 30 [place] [address] Jose Becerra MD [address] [facility] [address], [address] [place] [address] Social History Tobacco Use Types Packs/Day Years [...] Info) Description 10/14/2024 Procedure Pass Echo Lab [address] [place] [address] 07/01/2025 2:00 PM EST Office Visit [facility] [address] [place] [address] Cliff Walsh MD [address] [place] [address] 2nd [place] [address] 10/01/2025 11:20 AM EDT Office Visit [facility] [address] [place] [address] [place] [address] Wen Parikh MD [address] [place] [address] 3rd [place] [address] 10/07/2025 12:45 PM EDT Appointment Echo Lab [address] [place] [address] Eliseo Jacobs DO 22 [facility] [address] [place] [address] 10/21/2025 12:30 PM EDT Office Visit [facility] [address] [facility] 3rd Floor, [address] [place] [address] Eliseo Jacobs, DO [address] [facility] [address] [place] [address] documented as of this encounter Visit Diagnoses [...] documented as of this encounter Care Teams Slide Forming Machine Operator Relationship Specialty Start Date End Date Pcp, Not Required [address] [place] [address] PCP - General 03/23/18 08/06/18 Mariajose Smallwood FNP [address] [place] [address] [place] [address] [email or web address] PCP - General Family Medicine 08/07/18 08/09/18 Jose Becerra MD [address] [place] [address] JOHANNY Garcia [address] [email or web address] PCP - General Family Medicine 08/10/18 12/03/18 Mariajose Smallwood FNP [address] [place] [address] [place] [address] [email or web address] PCP - General Family Medicine 12/04/18 01/09/19 Dyan Matias RN [address] [place] [address] [email or web address] PCP - General Internal Medicine 01/10/19 09/13/20 Cliff Walsh MD [address] [place] [address] [email or web address] PCP - General Internal Medicine 09/14/20 Julia Callahan DO [address] [place] [address] 03/23/18 08/06/18 Mariajose Smallwood FNP [address] [place] [address] 7 [place] [address] [email or web address] Family Medicine 08/10/18 12/03/18 Pcp, Not Required [address] [place] [address] 08/07/18 08/09/18 Jose Becerra MD [address] [place] [address] 7 [place] [address] [email or web address] Family Medicine 12/04/18 Letitia Odom MD [address] [place] [address] [email or web address] Insurance Assigned Provider 10/30/19 10/31/20 Chinyere Reilly MD [address] [place] [address] Consulting Provider Geriatric Medicine 03/20/20 03/26/22 Marjorie Pappas NP [address] [place] [address] Nurse Practitioner Oncology 09/11/20 Cliff Walsh MD [address] [place] [address], 2nd [place] [address] Insurance Assigned Provider 10/28/23 Chinyere Barajas, MERT [address] [place] [address] [email or web address] PHCM Campaign Marketing Specialist 09/27/21 11/07/21 documented as of this encounter Additional Source Comments The information contained in this document represents components of the legal health record. It is not the complete legal health record.[facility]
--- OUTSIDE RECORDS SUMMARY | 2025-06-25 22:19 | XMS_ITS | Encounter Summary ---
Author Organization [facility] Address [address] [facility] [address] [place] [address] Phone Care Team Providers Care Manager Credit Name Role Phone Julia Callahan DO Primary Care Provider [phone] Pcp, Not Required Primary Care Provider Unavaila ble Mariajose Smallwood [facility] Primary Care Provider Jose Becerra MD Primary Care Provider [phone] Mariajose Smallwood [facility] Primary Care Provider [phone] Dyan Matias bottle selector Provider [phone] Julia Callahan DO Unavailable [phone] Mariajose Smallwood [facility] Unavailable [phone] Pcp, Not Required Unavailable Unavailable Jose Becerra MD Unavailable Letitia Odom MD Unavailable [phone] Chinyere Reilly MD Unavailable [phone] Marjorie Pappas RETAIL PLANNING MANAGER Unavailable [phone] Cliff Walsh MD Primary Care Provider [phone] Cliff Walsh MD Unavailable Chinyere Barajas RN Unavailable [phone] Encounter Details Date Type Department Care Team (Late st Contact Info) Description 03/09/2018 Transcribe Orders [facility] Specimen Processing 30 [place] [address] Jose Becerra MD 38 [facility] [address], [address] [place] [address] Weakness (Primary Dx); NSTEMI (non-ST elevated myocardial infarction) [...] Info) Description 10/14/2024 Procedure Pass Echo Lab [address] [place] [address] 07/01/2025 2:00 PM EST Office Visit [facility] [address] [place] [address] [place] [address] Cliff Walsh MD [address] [place] [address] 10/01/2025 11:20 AM EDT Office Visit [facility] [address] [place] [address] [place] [address] Wen Parikh MD [address] [place] [address] 10/07/2025 12:45 PM EDT Appointment Echo Lab [facility] [address] [place], [place] [address] Eliseo Jacobs, DO 22 [facility] [address] [place] [address] 10/21/2025 12:30 PM EDT Office Visit [facility] [address] Floor, [address] [place], [place] [address] Eliseo Jacobs, DO 22 [facility] [address] [place] [phone] [email or web address] documented as of this encounter Results * Basic metabolic panel (03/09/2018 4:20 AM EDT) SODIUM 140 133 - 146 mmol/L [facility] CHLORIDE 100 96 - 108 mmol/L [facility] POTASSIUM 4.3 3.3 - 5.1 mmol/L [facility] CO2 24 21 - 35 mmol/L [facility] BUN 14 6 - 19 mg/dL [facility] CREATININE 0.80 0.5 - 1.5 mg/dL [facility] GLUCOSE 95 70 - 99 mg/dL [facility] CALCIUM 8.5 8.4 - 10.3 mg/dL [facility] EGFR 74 >59 mL/min/1.7 3m2 [facility] Comment:If patient is black, multiply result by 1.159. Estimated glomerular filtration rate calculated using the CKD-EPI equation. ANION GAP 20 10 - 20 mmol/L [facility] Blood 03/09/2018 4:20 AM EDT 03/09/2018 9:14 AM EDT us Jose Becerra MD LAB BLOOD BKR ORDERABLES Final R esult [facility] [address] [place] [address] * (ABNORMAL) CBC (03/09/2018 4:20 AM EDT) WBC 6.99 3.40 - 11.20 K/uL [facility] RBC 4.53 3.80 - 4.80 M/uL [facility] HGB 12.0 12.0 - 15.0 g/dL [facility] HCT 37.3 36.0 - 46.0 % [facility] PLT 206 130 - 400 K/uL [facility] MCV 82.3 79.0 - 98.0 fL [facility] MCH 26.5(L) 27.0 - 34.8 pg [facility] MCHC 32.2 31.5 - 36.0 g/dL [facility] RDW 15.5(H) 10.8 - 14.6 % [facility] MPV 10.8 9.4 - 12.4 [facility] NRBC 0.00 /100 WBCs [facility] ABSOLUTE NRBC 0.00 K/uL [facility] Blood 03/09/2018 4:20 AM EDT 03/09/2018 9:14 AM EDT us Jose Becerra MD LAB BLOOD BKR ORDERABLES Final R esult Performing Organization Address City/State/[facility] Co de Phone Number [address] [address] documented in this encounter Visit Diagnoses Diagnosis Weakness- Primary Other malaise and fatigue NSTEMI (non-ST elevated myocardial infarction) Acute myocardial [...] documented as of this encounter Care Teams Manager Credit Relationship Specialty Start Date End Date Furcolo, Julia L, DO [address] [place] [address] PCP - General 05/11/17 03/22/18 Pcp, Not Required [address] [place] [address] PCP - General 03/23/18 08/06/18 Mariajose Smallwood FNP [address] [place] [address] 7 [place] [address] [email or web address] PCP - General Family Medicine 08/07/18 08/09/18 Jose Becerra MD [address] [place] [address] 7 [place] [address] [email or web address] PCP - General Family Medicine 08/10/18 12/03/18 Mariajose Smallwood FNP [address] [place] [address] 7 [place] [address] PCP - General Family Medicine 12/04/18 01/09/19 Dyan Matias RN [address] [place] [address] PCP - General Internal Medicine 01/10/19 09/13/20 Cliff Walsh MD [address] [place] [address], 2nd [place] [address] PCP - General Internal Medicine 09/14/20 Julia Callahan DO [address] [place] [address] 03/23/18 08/06/18 Mariajose Smallwood FNP [address] [place] [address] 7 [place] [address] [email or web address] Family Medicine 08/10/18 12/03/18 Pcp, Not Required [address] [place] [address] 08/07/18 08/09/18 Jose Becerra MD [address] [place] [address] 7 [place] [address] Family Medicine 12/04/18 Letitia Odom MD [address] [place] [address] Insurance Assigned Provider 10/30/19 10/31/20 Chinyere Reilly MD [address] [place] [address] Consulting Provider Geriatric Medicine 03/20/20 03/26/22 Marjorie Pappas, DANE [address] [place] [address] Nurse Practitioner Oncology 09/11/20 Cliff Walsh MD [address] [place] [address] Insurance Assigned Provider 10/28/23 Chinyere Barajas RN [address] [place] [address] [email or web address] PHCM Lorry Weigher 09/27/21 11/07/21 documented as of this encounter Additional Source Comments The information contained in this document represents components of the legal health record. It is not the complete legal health record.[facility]
--- OUTSIDE RECORDS SUMMARY | 2025-06-25 22:20 | XMS_ITS | Encounter Summary ---
Author Organization [facility] Address [address] [place] [address] [address] [place] [address] Phone Care Team Providers Care Rn Documentation Name Role Phone Jose Becerra MD Primary Care Provider Mariajose Smallwood [facility] Primary Care Provider Dyan Matias gamma ray operator Provider [phone] Mariajose Smallwood [facility] Unavailable [phone] Jose Becerra MD Unavailable Letitia Odom MD Unavailable [phone] Chinyere Reilly MD Unavailable [phone] Marjorie Pappas TAX PROCESSOR Unavailable Cliff Walsh MD Primary Care Provider Cliff Walsh MD Unavailable [phone] Chinyere Barajas RN Unavailable [phone] Encounter Details Date Type Department Care Team (Late st Contact Info) Description 09/17/2018 Transcribe Orders [facility] [address] [place] [address] Fortunato Suresh MD [address] [place] [address] [address] [place] [phone] [email or web address] Social History Tobacco Use Types Packs/Day Years Used Date Smoking Tobacco: Former Cigarettes 0.5 5 2 003 - 2008 Smokeless Tobacco: Never Alcohol Use Standard Drinks/Week [...] Info) Description 10/14/2024 Procedure Pass Echo Lab [address] [place] [address] 07/01/2025 2:00 PM EST Office Visit [facility] [address] [place] [address] [place] [address] Cliff Walsh MD [address] [place] [address] 10/01/2025 11:20 AM EDT Office Visit [facility] [address] [place] [address] [place] [address] Wen Parikh MD [address] [place] [address] 10/07/2025 12:45 PM EDT Appointment Echo Lab [address] [place] [address] Eliseo Jacobs DO 22 [facility] [address] [place] [address] 10/21/2025 12:30 PM EDT Office Visit [facility] [address] [facility] 3rd Floor, [address] [place] [address] Eliseo Jacobs DO 22 [facility] [address] [place] [address] documented as of this encounter Visit Diagnoses [...] documented as of this encounter Care Teams Rn Documentation Relationship Specialty Start Date End Date Jose Becerra MD PCP - General Family Medicine 08/10/18 12/03/18 Mariajose Smallwood FNP [address] [place] [address] [address] [place] [address] PCP - General Family Medicine 12/04/18 01/09/19 Dyan Matias RN [address] [place] [address] PCP - General Internal Medicine 01/10/19 09/13/20 Cliff Walsh MD [address] [place] [address], 2nd [place] [address] PCP - General Internal Medicine 09/14/20 Mariajose Smallwood FNP [address] [place] [address] 7 [place] [address] Family Medicine 08/10/18 12/03/18 Jose Becerra MD Family Medicine 12/04/18 Letitia Odom MD [address] [place] [address] [email or web address] Insurance Assigned Provider 10/30/19 10/31/20 Chinyere Reilly MD [address] [place] [address] Consulting Provider Geriatric Medicine 03/20/20 03/26/22 Marjorie Pappas NP [address] [place] [address] Nurse Practitioner Oncology 09/11/20 Cliff Walsh MD [address] [place] [address] Insurance Assigned Provider 10/28/23 Chinyere Barajas RN [address] [place] [id number] PHCM Intelligence Clerk 09/27/21 11/07/21 documented as of this encounter Additional Source Comments The information contained in this document represents components of the legal health record. It is not the complete legal health record.[facility]
--- OUTSIDE RECORDS SUMMARY | 2025-06-25 22:20 | XMS_ITS | Clinical Summary ---
Author Organization [facility] Address [address] [place] [address] Phone Care Team Providers Care Head Sawyer Name Role Phone Jose Becerra MD Unavailable Marjorie Pappas MASTER CONTROL SUPERVISOR Unavailable [phone] Cliff Walsh MD Primary Care Provider Cliff Walsh MD Unavailable Allergies Active Allergy Reactions Criticality Noted Date Comments Penicillins Piroxicam Shrimp Hives High 06/28/2017 Sulfa (Sulfonamide Antibiotics) Medications triamcinolone acetonide 0.1 % ointment Apply topically 2 (two) times a day. 30 g 020 Active acetaminophen (TYLENOL) 500 MG tablet Take 1 tablet (500 mg total) by mouth 2 (two) times a day. 56 tablet 12 021 Active blood-glucose meter kitIndications:D iabetes mellitus Use as instructed Freestyle meter 1 each 021 Active foam bandage (MEPILEX) 4 X 4 BndgIndications: Pressure injury of left buttock, stage 1 Apply 1 each topically daily. 30 each 2 022 Active foam bandage (MEPILEX BORDER) 3 X 3 BndgIndications: Pressure injury of left buttock, stage 1 Apply 1 each topically daily. 30 each 2 022 Active levETIRAcetam (KEPPRA) 250 MG tablet Take 250 mg by mouth 2 (two) times a day. 022 Active loperamide (IMODIUM) 2 mg capsule Take 1 capsule (2 mg total) by mouth 4 (four) times a day as needed for diarrhea. 20 capsule 023 Active cranberry fruit extract (CRANBERRY EXTRACT) 250 mg CapIndications:R ecurrent UTI Take 1 capsule (250 mg total) by mouth daily. 90 capsule 3 024 Active methIMAzole (TAPAZOLE) 5 MG tablet Take HALF tablet by mouth 3 days a week on Mondays-- Fridays 40 tablet 1 024 Active foam bandage (MEPILEX BORDER SACRUM) 9.2 X 9.2 BndgIndications: Pressure injury of sacral region, stage 2 Apply 1 each topically daily. 30 each 5 024 Active disposable gloves MiscIndications: Dependent for personal hygiene 1 each by Miscellaneous route as needed. Size Medium, Vinyl 8 each 3 024 Active disposable gloves MiscIndications: Dependent for personal hygiene 1 each by Miscellaneous route as needed. Vinyl, Size Large 8 each 3 024 Active aspirin 81 MG EC tabletIndication s:Medication refill TAKE 1 TABLET BY MOUTH EVERY DAY 90 tablet 3 024 Active fluticasone propionate 220 mcg/actuation inhaler Inhale 1 puff into the lungs 2 (two) times a day. 024 Active levoFLOXacin (LEVAQUIN) 750 MG tablet Take 750 mg by mouth daily. 024 Active FREESTYLE LITE METER meter kitIndications:T ype 2 diabetes mellitus with diabetic neuropathy, without long-term current use of insulin Use as instructed 1 kit 024 Active FREESTYLE LITE Strp stripsIndication s:Type 2 diabetes mellitus with diabetic neuropathy, without long-term current use of insulin 1 each by Miscellaneous route daily. 100 strip 3 024 Active lancets 28 gauge MiscIndications: Type 2 diabetes mellitus with diabetic neuropathy, without long-term current use of insulin 1 each by Miscellaneous route daily. 100 each 4 024 Active OXYGEN-AIR DELIVERY SYSTEMS MISC 2 L by Intranasal route continuous. 024 Active glycerin, adult, SuppIndications: Constipation, unspecified constipation type Place 1 suppository rectally daily as needed (constipation). 25 suppository 2 024 Active docusate sodium (COLACE) 100 MG capsuleIndicatio ns:Constipation, unspecified constipation type Take 1 capsule (100 mg total) by mouth 2 (two) times a day. 180 capsule 3 024 Active VINYL GLOVES MiscIndications: Impaired mobility and ADLs,Urge incontinence of urine Use as needed for patient care 200 each 11 024 Active polyethylene glycol (MIRALAX) 17 gram/dose powderIndication s:Constipation, unspecified constipation type Take 17 g by mouth daily. Put into 8 oz of any liquid. 765 g 2 025 Active traZODone (DESYREL) 100 MG tabletIndication s:Insomnia, unspecified type TAKE 1 TABLET BY MOUTH EVERYDAY AT BEDTIME 84 tablet 4 025 Active cholecalciferol (VITAMIN D3) 25 MCG (1,000 unit) tablet TAKE 1 TABLET BY MOUTH EVERY DAY 84 tablet 4 025 Active albuterol 2.5 mg /3 mL (0.083 %) nebulizer solutionIndicati ons:Moderate persistent asthma without complication Take 3 mL (2.5 mg total) by nebulization every 4 (four) hours as needed for wheezing. 75 mL 2 025 Active furosemide (LASIX) 40 MG tabletIndication s:Chronic congestive heart failure, unspecified heart failure type TAKE 1/2 TABLET BY MOUTH 2 TIMES A DAY 90 tablet 3 025 Active blood sugar diagnostic (FREESTYLE LITE) Strp stripsIndication s:Type 2 diabetes mellitus with diabetic neuropathy, without long-term current use of insulin Iglucose test strip, USE TO TEST BLOOD SUGAR ONCE PER DAY 100 strip 3 025 Active lancets (FREESTYLE) 28 gauge MiscIndications: Type 2 diabetes mellitus with diabetic neuropathy, without long-term current use of insulin USE TO TEST BLOOD SUGAR ONCE A DAY 100 each 3 025 Active ferrous sulfate 324 mg (65 mg [place] iron) TbECIndications: Anemia, unspecified type TAKE 1 TABLET (324 MG TOTAL) BY MOUTH EVERY MORNING. 84 tablet 4 025 Active atorvastatin (LIPITOR) 80 MG tabletIndication s:Atherosclerosi s of coronary artery of [place] heart without angina pectoris, unspecified vessel or lesion type,Cerebrovasc ular accident (CVA) involving right cerebral hemisphere TAKE 1 TABLET BY MOUTH EVERY DAY 84 tablet 4 025 Active FLUoxetine (PROZAC) 20 MG capsuleIndicatio ns:Depression, unspecified depression type TAKE 1 CAPSULE BY MOUTH EVERY DAY 84 capsule 4 025 Active pregabalin (LYRICA) 200 MG capsuleIndicatio ns:Diabetic polyneuropathy associated with type 2 diabetes mellitus Take 1 capsule (200 mg total) by mouth 3 (three) times a day. 90 capsule 5 025 Active folic acid (FOLVITE) 400 MCG tabletIndication s:Medication refill TAKE 1 TABLET BY MOUTH EVERY DAY 84 tablet 4 025 Active VENTOLIN HFA 90 mcg/actuation inhalerIndicatio ns:Moderate persistent asthma, unspecified whether complicated INHALE 2 PUFFS INTO THE LUNGS EVERY 6 HOURS NEEDED FOR WHEEZE 18 g 3 025 Active methIMAzole (TAPAZOLE) 5 MG tablet Take HALF tablet by mouth 3 x a week on Mon-Mon-Mon 20 tablet 1 025 Active glipiZIDE (GLUCOTROL XL) 5 MG 24 hr tabletIndication s:Diabetic polyneuropathy associated with type 2 diabetes mellitus TAKE 1 TABLET (5 MG TOTAL) BY MOUTH DAILY. 84 tablet 12 025 Active cyanocobalamin, vitamin B-12, 500 MCG tabletIndication s:Medication refill TAKE 1 TABLET BY MOUTH EVERY DAY 84 tablet 4 025 Active nystatin (NYSTOP) powder Apply topically 2 (two) times a day. 30 g 5 025 Active oxyBUTYnin (DITROPAN-XL) 5 MG 24 hr tabletIndication s:Overactive bladder TAKE 1 TABLET BY MOUTH EVERY DAY 84 tablet 4 025 Active metoprolol succinate (TOPROL-XL) 25 MG 24 hr tabletIndication s:Hypertension TAKE 1 TABLET (25 MG TOTAL) BY MOUTH DAILY. 84 tablet 4 025 Active clopidogrel (PLAVIX) 75 mg tabletIndication s:Atherosclerosi s of coronary artery of [place] heart without angina pectoris, unspecified vessel or lesion type TAKE 1 TABLET BY MOUTH EVERY DAY 84 tablet 3 025 Active nystatin cream APPLY TOPICALLY UNDER BREAST 2 TIMES A DAY FOR 10 DAYS 30 g 025 Active pregabalin (LYRICA) 150 MG capsuleIndicatio ns:Diabetic polyneuropathy associated with type 2 diabetes mellitus Take 1 capsule (150 mg total) by mouth 3 (three) times a day. 84 capsule 5 025 Active zinc oxide 20 % ointmentIndicati ons:Buttock wound Apply topically as needed (for skin irritation and protection). 56.7 g 2 025 Active zinc oxide 20 % ointmentIndicati ons:Buttock wound APPLY TOPICALLY NEEDED (FOR SKIN IRRITATION AND PROTECTION). 56.7 g 2 025 05/28 Discontinued( Reorder) pregabalin (LYRICA) 150 MG capsuleIndicatio ns:Diabetic polyneuropathy associated with type 2 diabetes mellitus TAKE 1 CAPSULE BY MOUTH THREE TIMES A DAY 84 capsule 5 025 05/28 Discontinued Active Problems Problem Noted Date Diagnosed Date Postinflammatory hyperpigmentation 03/31/2025 Assessment & Plan (03/31/2025 9:12 PM EDT): We discussed that her skin changes are consistent with postinflammatory hyperpigmentation. Continue supportive care. Parkinson's disease with dyskinesia 03/31/2025 Assessment & Plan (03/31/2025 9:12 PM EDT): This is a recent diagnosis. No medications have been recommended. She is upset by her tremor. We discussed different devices that may be used to reduce tremor. Dementia without behavioral disturbance, psychotic disturbance, mood disturbance, or anxiety, unspecified dementia severity, unspecified dementia type 11/27/2024 Assessment & Plan (11/27/2024 3:55 PM EDT): Stable. She is still able to make her medical decisions. She lives at home with CLIENT SERVICE MANAGER support. Pressure injury of sacral region, stage 2 2023 Assessment & Plan (05/14/2024 9:40 PM EDT): Her immobility and poor nutrition are risk factors for pressure ulcers. Unfortunately, she has developed another one. We discussed getting home health evaluation to address this. Myoclonus 01/29/2024 Assessment & Plan (01/29/2024 7:53 PM EDT): This was noted on there right side. It has improved. Peripheral vascular disease 01/29/2024 Assessment & Plan (08/13/2024 10:27 PM EST): This puts her at higher risk for poor wound healing in her extremities.Will need to keep a close eye on her heel wound. Assessment & Plan (01/29/2024 7:28 PM EDT): Stable. Recurrent UTI 01/29/2024 Assessment & Plan (01/29/2024 7:55 PM EDT): Her dysuria has returned. It is very difficult to get a clean catch urine. Will treat with Keflex and start cranberry capsules to see if this helps reduce recurrence. Yeast infection 11/28/2023 Assessment & Plan (11/28/2023 8:58 PM EDT): Will treat with fluconazole for possible yeast infection after recent antibiotics. If no improvement of her urinary symptoms, will consider retreatment for UTI. Gastrointestinal hemorrhage 09/29/2023 Assessment & Plan (09/29/2023 7:52 PM EST): This has resolved. Will get CBC to ensure stability of hemoglobin. Advised her to consider further evaluation if this occurs again Toxic multinodular goiter 09/19/2023 Assessment & Plan (12/28/2024 6:28 PM EDT): Slightly low TSH dating back to 03/2022. Initial TSH is 0.18, lowest TSH 0.04 in 10/2022 with normal thyroid hormone levels. Elevated 24-hour radioactive iodine uptake of 37.2% on 05/25/2023 with increased uptake in the right lobe about 3.5 cm at largest diameter, area corresponding to 3 nodules in the right thyroid lobe 1.6 cm, 1.4 cm and 1.9 cm craniocaudally on subsequent ultrasound. TSH remained suppressed at0.1 in 08/2023. Started on 5 mg methimazole on 09/19/2023. TSH became slightly elevated by 11/24/2023 with normal thyroid hormone levels and methimazole dose was decreased to 2.5 mg daily. In 04/2024 Free T4 was slightly low and free T3 was low normal with normal TSH while on 2.5 mg methimazole daily and dose was decreased to 2.5 mg 3 times a week which she has been taking consistently. No follow-up TFTs done since dose change. Denies compression symptoms in the thyroid bed. -Continue 2.5 mg methimazole 3 times a week for now -Check TFTs today, will review by phone with hospitality specialist -Follow-up in 6 to 9 months Assessment & Plan (05/20/2024 12:52 PM EDT): Slightly low TSH dating back to 03/2022. Initial TSH is 0.18, lowest TSH 0.04 in 10/2022 with normal thyroid hormone levels. Elevated 24-hour radioactive iodine uptake of 37.2% on 05/25/2023 with increased uptake in the right lobe about 3.5 cm at largest diameter, area corresponding to 3 nodules in the right thyroid lobe 1.6 cm, 1.4 cm and 1.9 cm craniocaudally on subsequent ultrasound. TSH remained suppressed 0.1 in 08/2023. Started on 5 mg methimazole on 09/19/2023. TSH became slightly elevated by 11/24/2023 with normal thyroid hormone levels and methimazole dose was decreased to 2.5 mg daily. Denies compression symptoms in the thyroid bed. Labs last week showed a normal TSH of 2.25 with a slightly low free T4 of 0.8 and low normal free T3 of 2.1 while on 2.5 mg methimazole daily. Plan to decrease dose further by taking 2.5 mg 3 days a week. Repeat labs when seeing PCP on 08/13/2023. Follow-up in 6 months. Assessment & Plan (12/19/2023 10:29 PM EDT): Slightly low TSH dating back to 03/2022. Initial TSH is 0.18, lowest TSH 0.04 in 10/2022 with normal thyroid hormone levels. Elevated 24-hour radioactive iodine uptake of 37.2% on 05/25/2023 with increased uptake in the right lobe about 3.5 cm at largest diameter, area corresponding with 3 nodules in the right thyroid lobe 1.6 cm, 1.4 cm and 1.9 cm craniocaudally on subsequent ultrasound. TSH remains suppressed 0.1 in 08/2023. Started on 5 mg methimazole on 09/19/2023. TSH became slightly elevated as of 11/24/2023 with normal thyroid hormone levels. TSH receptor antibody undetectable. Plan to decrease methimazole dose to 2.5 mg daily. Repeat TFTs in 6 to 8 weeks, may combine with labs by other providers. Will communicate about labs through patient portal or phone with her CLIENT SERVICE MANAGER/[facility] nurse. Assessment & Plan (09/19/2023 12:23 PM EST): 77-year-old woman with history of type 2 diabetes, CAD, status post urgent CABG x 3 in 2016, stroke with left hemiparesis in 2018 found to have slightly low TSH dating back to 03/2022. Initial TSH is 0.18, lowest TSH 0.04 in 10/2022 with normal thyroid hormone levels. Last TSH 0.1 without thyroid hormone levels listed on 08/25/2023. Antithyroid antibodies have not been reported. Patient had an elevated 24-hour radioactive iodine uptake of 37.2% on 05/25/2023 with increased uptake in the right lobe about 3.5 cm at largest diameter. Subsequent thyroid ultrasound reported 3 nodules in the right thyroid lobe 1.6 cm, 1.4 cm and 1.9 cm craniocaudally. These nodules are TR 3 and TR 4 with risk of malignancy between 5 to 9% but considering the increased iodine uptake in these nodules the risk of malignancy is likely even lower and for this reason I would not recommend any biopsies. The left lobe has a mostly cystic 1.7 cm TR 2 nodule without clinical significance. We discussed health risks of untreated hyperthyroidism even if it is subclinical and possible treatment options including surgery, radioactive iodine ablation and antithyroid medication. Patient has no compression symptoms in the thyroid bed and does not seem to have a bulky thyroid. She agreed with starting methimazole, Rx on 5 mg tablet daily was sent. Will repeat TFTs in 6 weeks. CLIENT SERVICE MANAGER to let us know if any side effects on this medication. Impaired mobility and ADLs 08/30/2023 Assessment & Plan (07/04/2024 12:28 PM EST): She spends most of the day in her wheelchair and needs assistance with all ADLs especially toileting. They will now be getting supplies from [employer]. Orders: Adult pull-up VINYL GLOVES [facility]; Use as needed for patient care Assessment & Plan (08/30/2023 8:58 PM EST): She is unable to perform ADLs due to her impaired ambulation. She has supervisor money room who provide care for hygiene and other ADLs. They need gloves to provide this care. Rx sent. Subclinical hyperthyroidism 04/26/2023 Assessment & Plan (08/30/2023 8:45 PM EST): She is scheduled to see endocrinology at the end of this month. Assessment & Plan (04/26/2023 11:37 PM EDT): She has had a suppressed TSH previously. Will get updated TSH and consider further evaluation for cause of her hyperthyroidism. Pulmonary nodule 1 cm or greater in diameter 08/2022 Assessment & Plan (08/30/2023 8:39 PM EST): She still needs PET CT for evaluation of this. This was reordered. Diabetic polyneuropathy asso ciated with type 2 diabetes mellitus 08/07/2022 Assessment & Plan (11/27/2024 3:55 PM EDT): She has complained of left leg pain for several years. This is thought to be neuropathy. Could be diabetic or residual of previous stroke. Will try increasing Lyrica to see if this improves pain control. Orders: pregabalin (LYRICA) 200 MG capsule; Take 1 capsule (200 mg total) by mouth 3 (three) times a day. Assessment & Plan (07/04/2024 12:28 PM EST): Her diabetes has been well controlled. Orders: Hemoglobin A1c; Future Assessment & Plan (05/14/2024 4:03 PM EDT): Her diabetes has been controlled off medication for several years. Assessment & Plan (04/26/2023 11:39 PM EDT): She is due for a1c. Ordered. Assessment & Plan (08/07/2022 7:36 PM EST): We discussed that this could be the source of her leg pain. Will increase her Lyrica to 150 mg three times daily. Facial droop 03/24/2022 Assessment & Plan (04/04/2022 7:50 PM EDT): She had a recent hospital admission for worsening facial droop. Work up was negative for acute stroke. She is currently on a monitor to evaluate for arrhythmia. No atrial fibrillation was detected so far. Will await results. Assessment & Plan (03/24/2022 8:26 PM EDT): -Patient presented with worsening left facial droop noticed by family on the afternoon of 03/23, outpatient and also has generalized weakness and fatigue for the past 2 days -CT head showed no acute pathology, CTA head and neck showed no acute vascular abnormality -Follow up MRI, TTE with bubble study, may benefit from outpatient Holter monitor -Will discuss with tele neuro once imaging results available -Monitor on tele -PT/OT eval -FIELD ASSESSOR eval -Follow up HbA1c, TSH, ESR, CRP, lipid panel -Continue aspirin, Plavix and high-dose statin Acute on chronic respiratory failure with hypoxia and hypercapnia 11/27/2021 Assessment & Plan (11/27/2024 3:55 PM EDT): She remains on oxygen. She recovered well from her recent pneumonia and is at her baseline O2 supplementation. Assessment & Plan (05/14/2024 3:32 PM EDT): She is stable on oxygen therapy. Assessment & Plan (01/29/2024 7:51 PM EDT): She is stable on oxygen. Assessment & Plan (04/04/2022 7:39 PM EDT): Stable. She does have some improvement with oxygen therapy. Morbid obesity 08/06/2020 Assessment & Plan (10/14/2024 12:23 PM EDT): This is going to be a big problem going forward with elevated sugars Assessment & Plan (11/08/2021 3:35 PM EDT): Difficult to assess weight as she is unable to stand on our scale. Stage 3a chronic kidney disease 08/06/2020 Assessment & Plan (11/27/2024 3:55 PM EDT): This has been stable. Assessment & Plan (01/29/2024 7:52 PM EDT): Stable. Assessment & Plan (11/08/2021 3:36 PM EDT): Will get updated renal function given that we are increasing her furosemide. Hypoxia 04/26/2020 Assessment & Plan (05/14/2024 3:33 PM EDT): Stable on oxygen therapy. Assessment & Plan (09/29/2023 7:45 PM EST): She continues on 2 L oxygen which helps to keep her oxygen saturations normal. Assessment & Plan (04/26/2020 4:12 PM EDT): Family noted the patient to have a change in mental status, EMS was called and they noted pinpoint pupils with decreased respiratory rate and low O2 sats which improved with Narcan. On scene, the patient had a low-grade fever and complained of congested cough, wheezing was noted. She had felt somewhat short of breath although these symptoms all appear to have improved in the ER after receiving albuterol. CT of the chest showed linear opacity on the right consistent with scarring or nodule, no PE, infiltrate or consolidation. White blood cell count normal, lactate 1.7. Pro BNP low, troponin low Patient symptoms may have been related to an increase in her oxycodone versus viral illness, COPD exacerbation. COVID tested on 04/23 and today, negative. Plan -Recheck SARS-CoV-2 PCR again in a.m. -Check COVID labs -Continuous O2 sat and insights manager -If negative, clear patient from precautions -Treat for presumed COPD exacerbation with increased pulmonary regimen -Sputum culture -Hold oxycodone for now, could resume her prior usual 5 mg 3 times daily as needed dose tomorrow if continues to be stable. Fatigue 05/06/2019 Assessment & Plan (09/29/2023 7:55 PM EST): She continues with excessive fatigue and sleeps for much of the day. She is sleeping in the office today. She will awake to answer questions and then falls back asleep. Assessment & Plan (04/26/2023 11:29 PM EDT): She has had increased fatigue per report. She does have good days where she is more interactive. We discussed possible contributors such as CO2 retention. Will evaluate further. Osteoarthritis 04/30/2019 Anxiety 01/18/2019 Dyslipidemia 01/18/2019 Assessment & Plan (07/22/2024 10:30 AM EST): LDL should be less than 70 Tingling of both feet 11/30/2018 Assessment & Plan (11/30/2018 12:35 PM EDT): Rosi has more tingling of her feet. I reviewed her last A1C and it was elevated. I will recheck this today. I will update her with the results. She will get set back up with PT and OT. Psychophysiological insomnia 10/12/2018 Assessment & Plan (10/12/2018 11:06 AM EDT): We are going to try trazodone at 50mg at HS. SE profiled reviewed. Gastroesophageal reflux disease without esophagi tis 10/05/2018 Atherosclerosis of coronary artery of [place] heart without angina pectoris 08/31/2018 Overview (10/05/2018): Assessment & Plan (07/22/2024 10:30 AM EST): Currently without chest pain or shortness of breath although she is a poor historian we will get an echo that we can look at Assessment & Plan (05/14/2024 3:23 PM EDT): Stable. Assessment & Plan (01/29/2024 7:28 PM EDT): Stable. Assessment & Plan (09/29/2023 7:25 PM EST): Stable. Assessment & Plan (11/08/2021 3:30 PM EDT): Stable. Assessment & Plan (07/09/2021 10:42 AM EST): Stable. Will increase spironolactone to help with diuresis of lower extremities and help lower her blood pressure to goal. Assessment & Plan (04/26/2020 4:00 PM EDT): History of CAD, s/p CABG, also has history of stroke. No symptoms of chest pain. Will continue patient's usual aspirin, Plavix, statin, beta-thiago Assessment & Plan (10/05/2018 11:35 AM EDT): I do not find records in regards to date of her STEMI and CABG, pt and caregiver unaware of these details, it looks like she may have been seen with [facility] prior to her CVA, we will request records and refer for follow up with cardiology. Reviewed echocardiogram 10/2017 with normal EF 72%, no significant valvular disease, mild LVH; normal 30 day event monitor 11/08. Moderate persistent asthma without complication 08/31/2018 Assessment & Plan (05/14/2024 4:02 PM EDT): No active symptoms. Assessment & Plan (01/29/2024 7:40 PM EDT): She is now using nebulized Pulmicort which is much easier for her. Will continue. Assessment & Plan (08/30/2023 8:38 PM EST): She is doing well and is back to baseline. Refill albuterol nebs. Assessment & Plan (04/26/2023 11:48 PM EDT): No current exacerbation. Albuterol nebs refilled. Assessment & Plan (07/09/2021 10:40 AM EST): She reports the sensation of heavy breathing. There are some wheezes on exam today. She uses her albuterol but has not been compliant with Flovent. This was refilled today. Explained that this can help relieve the heaviness that she feels. Assessment & Plan (10/12/2018 11:01 AM EDT): Reviewed she does have faint wheezing on exam today - make sure taking flovent BID, if requiring > 2 doses proair per week we should adjust the maintenance inhaler. Depression 08/31/2018 Assessment & Plan (10/14/2024 12:23 PM EDT): Her anxiety and depression seem to be very stable Urge incontinence of urine 08/31/2018 Assessment & Plan (07/04/2024 12:28 PM EST): Orders: Adult pull-up VINYL GLOVES Misc; Use as needed for patient care Other chronic pain 08/31/2018 Assessment & Plan (04/26/2020 3:58 PM EDT): Patient has history of chronic leg pain, she tells me it varies between the left and right leg. In reviewing PCP and ER notes over the last few weeks, she has complained of both right knee and left leg pain. She tells me her pain is well controlled at present, she feels her usual aches and pains Ultrasounds on 04/23 ruled out DVTs, x-ray showed no acute fracture, CT showed no PE In reviewing the PDMP, it looks like she was previously taking gabapentin 300 mg 3 times a day, the most recent prescription in March was for 600 mg 3 times a day. Oxycodone was increased from 5 mg 3 times daily as needed to 10 mg 3 times a day as needed. Today, the patient was found to have a decreased respiratory rate, hypoxia and pinpoint pupils after calling 911, responded to Narcan Plan -Hold gabapentin and oxycodone today -If patient continues to be stable, restart at lower previous doses (gabapentin 300 mg tid and oxycodone 5 mg tid) to avoid oversedation, respiratory depression, altered mental status -Patient has followed with geriatrics, Dr Reilly, pt would benefit from follow up Glaucoma of both eyes 08/31/2018 COPD (chronic obstructive pulmonary disease) 02/2019 Assessment & Plan (08/13/2024 10:27 PM EST): She continues on oxygen supplementation. Will continue. Assessment & Plan (11/28/2023 8:56 PM EDT): She is having a harder time coordinating inhalers. Will switch to budesonide via nebulizer. Assessment & Plan (10/20/2023 8:34 AM EDT): She is having a hard time with the Arnuity Ellipta. Will try switch to fluticasone inhaler to see if this is easier for her to inhale. She remains on supplemental oxygen to keep her O2 levels above 92%. Assessment & Plan (03/24/2022 8:27 PM EDT): -Currently no shortness of breath or wheezing, continue Flovent and as needed albuterol Assessment & Plan (11/08/2021 3:28 PM EDT): She appears to be having a COPD exacerbation. She had a similar presentation in February 2021 which responded to steroids. She also declined hospital evaluation at that time similar to now. Will start prednisone and continue home albuterol and Flovent. Will get BNP to rule out heart failure as a contributor to her current presentation. Left hemiparesis 08/16/2018 Assessment & Plan (10/14/2024 12:23 PM EDT): This was from a stroke in the past Assessment & Plan (01/29/2024 7:52 PM EDT): There has been no progression of this. She has supervisor money room at home to provide her care and allow her to remain in her own home. 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 Rx written. Assessment & Plan (04/04/2022 7:43 PM EDT): We discussed that the shaking in her left upper and lower extremity is related to her hemiparesis. Advised her to continue to working on strengthening that side of her body. Assessment & Plan (11/08/2021 3:34 PM EDT): This contributes to her decreased mobility. Stable. Assessment & Plan (07/09/2021 10:41 AM EST): We discussed that I am not sure how much strength can be developed in the left leg but recommend continuing with PT exercises. Leg swelling may be contributing to some of her difficulty and will work to improve this. Assessment & Plan (10/05/2018 11:55 AM EDT): She has left side weakness with history of diabetes, left AFO worn, she does need replacement of her fitted shoes; she is referred to podiatry for toenail care. 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 No history of chronic kidney disease. Last creatinine on February 2017 showed creatinine of 0.8. May need a consultation with renal as an outpatient. History of stroke 11/17/2017 Assessment & Plan (10/14/2024 12:22 PM EDT): No recurrent neurologic events Assessment & Plan (07/22/2024 10:29 AM EST): This patient has a lot of residual from a prior CVA Assessment & Plan (09/29/2023 7:36 PM EST): Stable. Assessment & Plan (11/30/2018 12:38 PM EDT): Rosi had a CVA last year and her left side is affected. My nurses will set her back up with PT and OT. Assessment & Plan (11/17/2017 5:51 PM EDT): - Symptoms acutely started monday evening while at work. Still has significant weakness on left side. Persistent right facial droop. - MRI confirms acute lacunar infarction on the right, which results in left sided weakness. - Teleneuro consulted, less likely embolic, recommended continuing asa and plavix, 30 day monitor. - D/c Arimidex due to risk for VTE, spoke with Dr. Sprague. - added Prozac 20mg daily X3 months per neuro - increased lipitor to 80mg, cont asa and plavix - permissive HTN X5-7 days, may allow up to SBP 190s - B/L carotids without hemodynamically significance and echo NL - PT/OT - cardiac monitoring, no evidence of afib - f/u neurology Within 2-4 wk from discharge Type 2 diabetes mellitus wit h diabetic neuropathy, without long-term current use of insulin 11/17/2017 Assessment & Plan (08/13/2024 10:27 PM EST): Her diabetes has been well controlled. Assessment & Plan (07/22/2024 10:30 AM EST): A1c should be less than 7 but when I reviewed her labs she does have a well-controlled A1c Assessment & Plan (01/29/2024 7:52 PM EDT): This has been well controlled. Assessment & Plan (11/28/2023 8:56 PM EDT): Will get updated A1c to assess control of her diabetes. Assessment & Plan (08/30/2023 8:45 PM EST): This has been well controlled. Assessment & Plan (04/04/2022 7:41 PM EDT): She still has pain of the left leg which could be partly neuropathy but will evaluate for peripheral vascular disease as well. Will try increasing Lyrica to 100 mg three times daily to help with pain. Assessment & Plan (03/24/2022 8:28 PM EDT): - Patient is placed in observation and expected to be hospitalized for short period of time, will continue her home glipizide 5 mg daily -Monitor point of care, cover with insulin sliding scale as needed -Follow-up hemoglobin A1c Assessment & Plan (04/26/2020 3:56 PM EDT): Continue home meds, add sliding scale Assessment & Plan (10/05/2018 11:39 AM EDT): Diet controlled, A1c 6.3% Assessment & Plan (11/17/2017 5:33 PM EDT): - appears is diet controlled, hba1c 6.4. - May consider insulin sliding scale if sugars elevated Lymphedema 06/28/2017 Assessment & Plan (11/17/2017 5:46 PM EDT): Patient had left sided lymphedema secondary to mastectomy and CABG vein harvest/venous insufficiency may contribute. - No clear evidence of heart failure, no DVT on the left - cont to monitor. Chronic back pain 12/18/2015 CHF (congestive heart failure) 12/18/2015 Assessment & Plan (11/27/2024 3:55 PM EDT): She appears euvolemic. Assessment & Plan (08/13/2024 10:27 PM EST): She has met with Dr. Jacobs. He ordered lab work for further evaluation. She will be going to the lab after this visit. Discussed continuing low sodium diet. Assessment & Plan (07/04/2024 12:28 PM EST): She had a recent admission for a heart failure exacerbation. She is now back at baseline. The hospital recommended that she establish with cardiology outpatient but they gave her an appointment in September. Will refer to [facility] to see if she can get established sooner. We discussed that they are unable to weigh her at home. Will need to monitor closely for signs/symptoms of heart failure symptoms. Orders: Basic metabolic panel; Future NT-proBNP; Future Ambulatory referral to [facility] Assessment & Plan (01/29/2024 7:28 PM EDT): Stable. Assessment & Plan (04/04/2022 7:39 PM EDT): We discussed that her recent echo shows diastolic heart failure. She appears euvolemic currently and there is no concern for fluid overload. Assessment & Plan (03/24/2022 8:27 PM EDT): - No shortness of breath, no JVD, patient has some mild lower extremity edema -Continue Lasix Assessment & Plan (11/08/2021 3:31 PM EDT): Given her lower extremity edema and wheezing. Will get BNP to evaluate for heart failure. Will increase furosemide to twice daily as well to help reduce swelling. Hypertension 12/18/2015 Assessment & Plan (08/13/2024 10:27 PM EST): Well controlled. Assessment & Plan (07/22/2024 10:30 AM EST): Well-controlled to the guidelines Assessment & Plan (05/14/2024 3:30 PM EDT): Well controlled. Assessment & Plan (11/28/2023 8:50 PM EDT): Well controlled. Assessment & Plan (09/29/2023 7:37 PM EST): Well controlled. Assessment & Plan (04/04/2022 7:37 PM EDT): Well controlled on metoprolol. Assessment & Plan (03/24/2022 8:29 PM EDT): - Blood pressure is currently controlled, hold Lopressor for permissive hypertension Assessment & Plan (07/09/2021 10:43 AM EST): Her blood pressure is elevated. Will increase spironolactone. Assessment & Plan (11/30/2018 12:38 PM EDT): Rosi Hernández has hypertension and she is taking the above medication as directed without any side effects. her blood pressure is within normal limits and stable. she will follow up as directed. Resolved Problems Problem Noted Date Diagnosed Date Resolved Date Acute on chronic diastolic ( congestive) heart failure 11/27/2024 11/27/2024 COVID-19 08/30/2023 09/29/2023 Assessment & Plan (08/30/2023 8:49 PM EST): She has returned to baseline after her recent hospital admission for COVID. At high risk for skin breakdown 11/08/2021 11/27/2021 Assessment & Plan (11/08/2021 3:32 PM EDT): There are no current wounds. She is high risk as her mobility and ability to reposition are limited which can make her more susceptible to pressure injury. Candidal intertrigo 09/02/2021 11/28/19 Acute metabolic encephalopathy 04/26/2020 11/27/2021 Assessment & Plan (04/26/2020 3:48 PM EDT): This has cleared. Per ER provider, family was concerned that the patient might lack capacity. I suspect the etiology was recent increased meds, PCP notes indicate an increase in gabapentin late March and in the ER on 04/23 oxycodone was increased to 10 mg 3 times daily from 5 mg 3 times daily. Patient knows the exact date, why she is here, asks appropriate questions about her medical care. She is able to describe her pulmonary medicines and why she takes them as well as the other home meds I asked her about. She also asked appropriate questions about what we were doing for her here medically. I feel she has capacity to make medical decisions. Plan: -Patient deemed to have capacity -Patient agrees to stay tonight for further pulmonary evaluation but if stable, she would like to return home tomorrow with her usual supports. Will ask case management and social work to consult Status post aorto-coronary a rtery bypass graft 10/05/2018 11/27/[address] of the chest 10/05/201801/2022 Assessment & Plan (10/05/2018 11:37 AM EDT): Reviewed CT/angio chest from 10/2017 showing ground-glass density right upper lobe with recommendation for [address] chest without contrast, unclear if this was done, we are still awaiting records. Confusion 10/05/2018 10/12/2018 Assessment & Plan (10/05/2018 11:53 AM EDT): Morning confusion and possibly some visual hallucinations of unclear duration, seems to resolve after she is awake for a while; caregiver to obtain UA C&S (instructed in clean catch technique) and certainly notify if any new mental status changes. OLIVAREZ (dyspnea on exertion) 11/17/2017 Assessment & Plan (11/18/2017 6:46 PM EDT): - No clear etiology for dyspnea on exertion. CXR negative for pulmonary edema or infiltrates. Unlikely acute exacerbation of diastolic dysfunction but BNP is low, no clear evidence on exam - ? Deconditioning may be contributing - serial troponins were neg, no EKG changes. - reviewed medications, patient was on Arimidex for breast ca, possible may increase VTE risk. D-dimer was elevated the CTPA was negative for PE. - Cont nebs prn. 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 Sprague as overdue. Right breast screening mammogram is overdue, ordered. History of left mastectomy 06/25/2017 0 11/27/2021 Encounters Date Type Department Care Team Description 06/25/[address] [place] [address] Cliff Walsh MD TCM Visit 06/18/2025 Orders Only [facility] [address] [place] [address] Unknown, Unknown, 06/17/2025 Orders Only [facility] [address] [place] [address] Unknown, Unknown, 05/28/[address] [place] [address] Cliff Walsh MD Medication Management 05/06/[address] [place] [address] Cliff Walsh MD Medication Refill 04/29/[address] [place] [address] Cliff Walsh MD [facility] [employer] [facility] 04/19/[address] [place] [address] Cliff Walsh MD Medication Refill 04/18/[address] [place] [address] Cliff Walsh MD Medication Refill 03/31/2025 1:00 PM EDT Office Visit [facility] [address] [place] [address] [place] [address] Cliff Walsh MD Postinflammatory hyperpigmentation (Primary Dx); Parkinson's disease with dyskinesia, unspecified whether manifestations fluctuate from Last 3 Months Immunizations Immunization Administration Dates Next Due COVID-19 (Pre-05/15) Pfizer Vaccine, mRNA, PF 10/30/2020,10/09/2020 INFLUENZA, SPLIT VIRUS, TRIV ALENT W/ PRESERVATIVE IM 05/24/2011 Influenza High-Dose Quadriva lent Preservative Free IM 04/27/2020 Influenza High-Dose Trivalen t Preservative Free IM 03/31/2025,05/13/2024 Influenza, Unspecified Formulation 05/03/2019, Pneumococcal conjugate PCV13 04/27/2020( Deferred: Not Available From [facility]),04/26/2020(Deferred: Patient Refused) Pneumococcal polysaccharide PPSV23 12/11/2000 Td, unspecified formulation 12/11/2000 Tdap 09/07/2007 Family History Medical History Relation Comments No Known Problems Father No Known Problems Mother Relation Status Comments Father Mother Social History Tobacco Use Types Packs/Day Years Used Date Smoking Tobacco: Former Cigarettes 1 15 1 2007 Smokeless Tobacco: Never Tobacco Cessation:Counseling Given: Not Answered Alcohol Use Standard Drinks/Week Comments No 0 [...] Orientation Straight 11/16/2017 5: 42 PM EDT Last Filed Vital Signs Vital Sign Reading Time Taken Comments Blood Pressure 136/72 03/31/2025 1:10 PM EDT Pulse 58 03/31/2025 1:10 PM EDT Temperature 36 C (96.8 F) 03/31/2025 1:10 PM EDT Respiratory Rate 24 06/10/2024 2:15 PM EST Oxygen Saturation 92% 03/31/2025 1:10 PM EDT Inhaled Oxygen Concentration 30% 11/30/2021 7 :00 AM EDT Weight 81.6 kg (180 lb) 03/24/2022 12:43 PM EDT Height 152.4 cm (5') 12/25/2024 11:27 AM EDT Body Mass Index 35.15 03/24/2022 12:43 PM EDT Plan of Treatment Upcoming Encounters Date Type Department Care Team (Late st Contact Info) Description 10/14/2024 Procedure Pass Echo Lab [address] [place] [address] 07/01/2025 2:00 PM EST Office Visit [facility] [address] [place] [address] [place] [address] Cliff Walsh MD [address] [place] [phone] 10/01/2025 11:20 AM EDT Office Visit [facility] [address] [place] [address] [place] [address] Wen Parikh MD [address] [place] [address] [address] [place] [address] 10/07/2025 12:45 PM EDT Appointment Echo Lab [address] [place] [address] Eliseo Jacobs DO [facility] [address] [place] [address] [email or web address] 10/21/2025 12:30 PM EDT Office Visit [facility] [address], [address] [place] [address] Eliseo Jacobs DO [address] [facility] [address] [place] [phone] [email or web address] Health Maintenance Due Date Last Done Comments HEPATITIS C SCREENING 12/10/1963 ZOSTER VACCINES (1 of 2) 12/10/1995 PNEUMOCOCCAL VACCINES (50+ years) (2 of 2 - PCV) 12/11/2001 12/11/2000 Adult Td,Tdap Booster 09/07/2017 09/07/2007, 001 RSV VACCINE (1 - 1-dose 75+ series) 2020 DEPRESSION SCREENING 2021 2020, 06/01/20 20 DIABETIC EYE EXAM 08/30/2022 08/30/2021 HEMOGLOBIN A1C 02/10/2025 08/13/2024, 12/0 03/2024, 11/24/2023, Additional history exists COVID-19 VACCINE ( - 2024- season) 2025 07/02/2021, 10/30/2020, 10/09/2020 BLOOD PRESSURE 09/28/2025 03/31/2025 OSTEOPOROSIS SCREENING INITIAL (ONE-TIME) Completed 01/29/2016 INFLUENZA VACCINE Completed 03/31/2025, , 04/27/2020, Additional history exists SMOKING STATUS SCREENING (Once After 26 Yrs) Completed 03/31/2025 HEPATITIS A VACCINES Aged Out No long er eligible based on patient's age to complete this topic HIB VACCINES Aged Out No longer eligi ble based on patient's age to complete this topic MENINGOCOCCAL VACCINES (ACWY) Aged Out No longer eligible based on patient's age to complete this topic MENINGOCOCCAL VACCINES (B) Aged Out N o longer eligible based on patient's age to complete this topic Medical Devices Not on file Procedures Procedure Name Priority Date/Time Associated Diagnosis Comments OUTSIDE IMAGING Routine 06/17/2025 4:36 PM EST OUTSIDE IMAGING Routine 06/17/2025 4:36 PM EST OUTSIDE IMAGING Routine 06/17/2025 4:35 PM EST OUTSIDE IMAGING Routine 06/17/2025 4:15 PM EST OUTSIDE IMAGING Routine 06/17/2025 8:25 AM EST HEMOGLOBIN A1C Routine 08/13/2024 12:25 PM EST Diabetic polyneuropathy associated with type 2 diabetes mellitus OUTSIDE BONE DENSITY SCREENING Routine 01/29/2016 from Last 3 Months or Most Recently Relevant to Health Maintenance Results * Outside Imaging Report Only (06/17/2025 4:36 PM EST) Historical Provider IMG XR CHEST Final Res ult * Outside Imaging Report Only (06/17/2025 4:36 PM EST) Historical Provider IMG XR CHEST Final Res ult * Outside Imaging Report Only (06/17/2025 4:35 PM EST) Historical Provider MD IMG XR CHEST Final Res ult * Outside Imaging Report Only (06/17/2025 4:15 PM EST) us Unknown Unknown MD IMG XR CHEST Edited Result - Final * Outside Imaging Report Only (06/17/2025 8:25 AM EST) us Unknown Unknown MD IMG XR CHEST Edited Result - Final * (ABNORMAL) Hemoglobin A1c (08/13/2024 12:25 PM EST) HEMOGLOBIN A1C 6.3(H) 4.3 - 5.8 % [facility] Blood 08/13/2024 12:2 5 PM EST 08/13/2024 12:43 PM EST us Eliseo Jacobs DO LAB BLOOD BKR ORDERABLES Arin l Result [address] [address] * OUTSIDE BONE DENSITY SCREENING (01/29/2016) [facility] BONE DENSITY SCREENING - EXTERNAL osteopenia Historical Provider HEALTH MAINTENANCE Edited Result - Final from Last 3 Months or Most Recently Relevant to Health Maintenance Insurance [place]IC[place] PART A & [place] [id number] [facility] MEDICARE PART A & B [place] [facility] Address[facility] [address] [place] [phone] MEDICARE PART A & B [place] [facility] MEDICARE PART A & B [facility] MEDICARE PART A & B [facility] MEDICARE PART A & B [place] [facility] MEDICARE PART A & [place] [facility] MEDICARE PART A & B [facility] MEDICARE PART A & B [place] [facility] MEDICARE PART A & [place] [facility] Member Subscriber Plan / Payer (Ef fective 2020-Present) Name:EdgarVenuRosi Member ID:[id number] Relation to Subscriber:Self Name:Rosi Hernández Subscriber ID:[id number] Payer ID:Not on file Group ID:Not on file Type:Indemnity Address: [address] [place] [id number] [facility] Advance Directives For more information, please contact: [phone] (9AM - 5PM [facility]) Documents on File Type Date Recorded Patient 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 Expl anation Healthcare Proxy 04/23/2020 Health Care Proxy * Full Code (Latest Code Status on File) Date Activated Date Inactivated Comments 03/24/2022 7:45 PM Question Answer Comments Code Status Confirmed With: Patient * Full Code Date Activated Date Inactivated Comments 11/27/2021 2:24 AM 03/24/2022 7:45 PM Question Answer Comments Code Status Confirmed With: Other (specify below ) Code Discussion Comments: presumed based on prio r code status * Full Code Date Activated Date Inactivated Comments 04/26/2020 4:13 PM 11/27/2021 2:24 AM Question Answer Comments Code Status Confirmed With: Patient * Full Code (Confirmed) Date Activated Date Inactivated Comments 11/17/2017 1:28 AM 11/19/2017 5:46 PM Question Answer Comments Code Discussion Comments: patient Care Teams Head Sawyer Relationship Specialty Start Date End Date Cliff Walsh MD [address] [place] [phone] [email or web address] [email or web address] - General Internal Medicine 09/14/20 Jose Becerra MD Family Medicine 12/04/18 Marjorie Pappas [facility] [place] [address] Nurse Practitioner Oncology 09/11/20 Cliff Walsh MD [address] [place] [id number] [email or web address] Insurance Assigned Provider 10/28/23 Additional Source Comments The information contained in this document represents components of the legal health record. It is not the complete legal health record.[facility]
--- NOTE | 2025-06-25 22:22 | PC.NURSE ---
pt biba from [facility] a&ox2, respirations even but labored. per ems, staff states pt had been lethargic and sating 88%. pt on baseline 2L nc. ems administered one duoneb and pt sats went up to 95%. on arrival pt noted to be working to breath with bilateral wheezing. pt 88-92% on her 2L. 20g ems line in lac and 22g placed in right hand. all labs obtained. MD Booth at bedside and RT at bedside
[2025-06-25 22:23] LABS: Troponin-I High Sensitivity 11.8 ng/L (<3.5-17.0)
[2025-06-25 22:25] LABS: INTERNATIONAL NORM RATIO 0.9 (0.9-1.1); Prothrombin Time 11.6 SEC (11.2-13.5)
--- NOTE | 2025-06-25 23:11 | PC.NURSE ---
multiple attempt made to obtain labs at this time. MD Booth at bedside and placed butterfly in pt IJ and all labs obtained
--- NOTE | 2025-06-25 23:14 | PC.NURSE ---
pt arlet care proxy Mariely on phone with this rn at this time. per family member, pt appeared suddenly short of breath and sating in the low o2 at 88% and then ems was called. MD Booth on phone with Mariely at this time
[2025-06-25 23:22] LABS: VBG HCO3 32 mmol/L (22-26); VBG O2 % Saturation 84.0 %
[2025-06-25 23:22] LABS: Venous Blood Gas Refer to POC result
[2025-06-25 23:36] LABS: Alanine Aminotransferase 11 U/L (0-31); Albumin Level 3.3 g/dL (3.5-5.0); Alkaline Phosphatase 58 U/L (39-117); Anion Gap 9 (12-20); Aspartate Amino Transferase 21 U/L (5-31); Blood Urea Nitrogen 26 mg/dL (9-16); Calcium 9.0 mg/dL (8.4-10.2); Carbon Dioxide 31 mmol/L (22-29); Chloride 105 mmol/L (96-108); Creatinine Clr Calc Pharmacy 30.9; Estimated Glomerular Filt Rate 38; Lipase 20 U/L (8-78); Magnesium 2.0 mg/dL (1.6-2.6); Potassium 5.1 mmol/L (3.3-5.1); Sodium 140 mmol/L (135-145); Total Protein 6.8 g/dL (6.5-8.0)
[2025-06-25 23:58] LABS: Resp Syncy Virus RNA Qual PCR NEGATIVE (Negative); SARS COV2 PCR INHOUSE NEGATIVE (Negative)
[2025-06-26] VITALS (15 sets, daily range): BP systolic 111–141; BP diastolic 40–68; PULSE 62–89; RESP 12–22; TEMP 36.4–37.1; O2SAT 94–100; BMI 34.3
[2025-06-26 00:24] LABS: D Dimer High Sensitivity 523 NG/ML
[2025-06-26] MEDS: Magnesium Sulfate/H2O 2 GM/50 ML PIGGYBACK IV (00:26)
--- NOTE | 2025-06-26 01:05 | PC.NURSE ---
per CT staff, ems 20g IV not suitable for CT. LINDY Randall at bedside to place US guided iv
--- NOTE | 2025-06-26 01:23 | PC.NURSE ---
18g US guided IV placed in LAC by LINDY Randall
[2025-06-26] MEDS: iohexoL 350 MG/ML 100 ML INFUS..BTL 65 ML IV (01:49)
[2025-06-26] MEDS: cefEPime HCl/D5W 2 GM/50 ML PIGGYBACK IV ×3 (02:27→21:32)
[2025-06-26] MEDS: metroNIDAZOLE/NS 500 MG/100 ML PIGGYBACK 100 MG IV (03:03)
[2025-06-26 03:30] LABS: ABG HCO3 32 mmol/L (22-26); ABG O2 % Saturation 99.0 %
--- NOTE | 2025-06-26 04:20 | PM.IMHP ---
History of Present Illness Date of Service: 06/26/25 Attending physician on admission: Rodney Green Chief Complaint: SOB Patient is a 79-year-old female with a past medical history significant for COPD on 2 L at baseline, history CVA now bed-bound, diabetes, seizure disorder, chronic sacral decubitus wound, minimal verbal and nonambulatory who presented to the ED last night due to shortness of breath and fatigue. Patient was recently discharged on after a complicated admission including intubation and ICU. Initially her recent stay was due to kidney stones however that she aspirated requiring intubation and was extubated 3 days later on 06/20. She developed septic shock secondary to UTI, sent home on cefuroxime. Last night the patient developed a wet cough and her O2 saturation was low therefore when nursing facility called EMS for the patient to be transferred back to the hospital. She received a DuoNeb EN route with improvement. Review of Systems Review of Systems: Yes Unobtainable due to mental condition [facility] Medical History Congestive heart failure Non-insulin dependent type 2 diabetes mellitus Aortic stenosis Seizure Dementia Seizure COPD (chronic obstructive pulmonary disease) Peripheral neuropathy HLD (hyperlipidemia) CVA (cerebral vascular accident) Heart failure, unspecified Functional capacity: wheelchair bound Social History Household Members: Unknown / Unable to assess Housing: Unknown / Unable to assess Housing Other:: residential Do you presently have visiting nurse or other home services: Yes Alcohol intake: former Comment: non ambulatory pt Patient Tobacco Use Status: Never used Tobacco Second Hand Smoke Exposure: No Advance Directives: Yes Advance Directives on File: Yes Advance Directives Date on File: 09/15/23 Do you have a plan to hurt others: No Plan service: No Meds Allergies Allergy/AdvReac Type Severity Reaction Status Date / Time Penicillins Allergy Unknown Verified 06/25/25 21:34 piroxicam Allergy Unknown Verified 06/25/25 21:34 shrimp Allergy Hives Verified 06/25/25 21:34 Sulfa (Sulfonamide Allergy Unknown Verified 06/25/25 21:34 Antibiotics) Home Medications ?Medication ?Instructions ?Recorded ?Confirmed ?Last Taken ?Type atorvastatin 80 mg tablet 80 mg PO BEDTIME 08/02/23 06/17/25 06/02/24 History cholecalciferol (vitamin D3) 25 25 mcg PO DAILY 08/02/23 06/17/25 06/02/24 History mcg (1,000 unit) tablet clopidogrel 75 mg tablet 75 mg PO DAILY 08/02/23 06/17/25 06/02/24 History cyanocobalamin (vitamin B-12) 500 500 mcg PO DAILY 08/02/23 06/17/25 06/02/24 History mcg tablet fluoxetine 20 mg capsule 20 mg PO DAILY 08/02/23 06/17/25 06/02/24 History folic acid 400 mcg tablet 0.4 mg PO DAILY 08/02/23 06/17/25 06/02/24 History metoprolol succinate 25 mg 25 mg PO DAILY 08/02/23 06/17/25 06/02/24 History tablet,extended release 24 hr oxybutynin chloride 5 mg 5 mg PO DAILY 08/02/23 06/17/25 06/02/24 History tablet,extended release 24 hr pregabalin 150 mg capsule 150 mg PO TID 08/02/23 06/17/25 06/02/24 History trazodone 100 mg tablet 100 mg PO BEDTIME 08/02/23 06/17/25 06/02/24 History zinc oxide 20 % topical ointment 1 appl topical DAILY PRN Wound 08/02/23 06/17/25 Unknown History Healing levetiracetam 250 mg tablet 250 mg PO BID 09/10/23 06/17/25 06/02/24 History (Keppra) albuterol sulfate 90 mcg/actuation 2 puff inhalation Q6H PRN wheezing 04/18/24 06/17/25 Unknown History aerosol inhaler (Ventolin HFA) methimazole 5 mg tablet 2.5 mg PO MOWEFR 04/18/24 06/17/25 06/02/24 History docusate sodium 100 mg capsule 100 mg PO BID 11/07/24 06/17/25 Unknown History ferrous sulfate 324 mg (65 mg 324 mg PO DAILY 06/17/25 06/17/25 Unknown History iron) tablet,delayed release Physical Exam Vital Signs and Narrative: Vital Signs: Last Vital Signs Temp 97.6 F 06/26/25 02:24 Pulse 89 06/26/25 02:24 Resp 22 H 06/26/25 02:24 BP 141/68 H 06/26/25 02:24 Pulse Ox 95 06/26/25 02:24 O2 Del Method Nasal Cannula 06/26/25 02:24 O2 Flow Rate 2 06/26/25 02:24 Oxygen Flow Rate 2 06/25/25 21:23 BMI result Body Mass Index 32.0 General: Alert, no acute distress Resp: diminshed throughout, difficult to assess, no active wheezing or respiratory distress CVS: S1, S2, RRR GI: +BS, NT, no distention Skin: Warm, dry Neuro: Cranial nerves II-XII grossly intact bilaterally. Motor grossly intact bilaterally, chornic facial droop and slurred speech from previous CVA Extremities: No pitting edema Psych: Appropriate affect Results Labs 06/25/25 21:53 06/26/25 06:38 Labs: Laboratory Results - last 24 hr 06/25/25 06/25/25 06/25/25 21:53 22:01 23:11 MCV 88.5 MCH 27.4 MCHC 31.0 RDW 16.3 H Plt Count 218 D MPV 11.3 Immature Gran % (Auto) 0.7 H Neut % (Auto) 66.3 Lymph % (Auto) 20.6 [place] % (Auto) 9.8 Eos % (Auto) 2.5 Baso % (Auto) 0.1 Lymph # (Auto) 1.4 [place] # (Auto) 0.7 Eos # (Auto) 0.2 Baso # (Auto) 0.0 Abs Immat Gran (auto) 0.05 H Absolute Neuts (auto) 4.6 Absolute Nucleated RBC 0.000 Nucleated RBC % (auto) 0.0 PT 11.6 D INR 0.9 D-Dimer High Sensitivty 523 O2 Saturation ABG pH at Pt Temp ABG pCO2 at Pt Temp ABG pO2 at Pt Temp ABG HCO3 ABG Base Excess (Actual) VBG pH 7.27 L VBG pCO2 73 VBG pO2 35 VBG HCO3 34 H VBG O2 Saturation 46.0 VBG Base Excess 5.7 Anion Gap 9 L Estim Creat Clear Calc 30.9 Estimated GFR 38 Random Glucose 118 H Lactic Acid 1.0 Calcium 9.0 Magnesium 2.0 Total Bilirubin 0.2 Direct Bilirubin < 0.2 AST 21 ALT 11 Alkaline Phosphatase 58 Troponin I High Sens 11.8 D C-Reactive Protein 2.13 H NT-Pro-B Natriuret Pep 2614.4 H Total Protein 6.8 Albumin 3.3 L Lipase 20 Influenza Type A (PCR) NEGATIVE Influenza Type B (PCR) NEGATIVE RSV RNA Qual (PCR) NEGATIVE SARS-CoV-2 RNA (RT-PCR) NEGATIVE 06/25/25 06/26/25 23:18 03:26 MCV MCH MCHC RDW Plt Count MPV Immature Gran % (Auto) Neut % (Auto) Lymph % (Auto) [place] % (Auto) Eos % (Auto) Baso % (Auto) Lymph # (Auto) [place] # (Auto) Eos # (Auto) Baso # (Auto) Abs Immat Gran (auto) Absolute Neuts (auto) Absolute Nucleated RBC Nucleated RBC % (auto) PT INR D-Dimer High Sensitivty O2 Saturation 99.0 ABG pH at Pt Temp 7.35 ABG pCO2 at Pt Temp 56 H ABG pO2 at Pt Temp 125 H ABG HCO3 32 H ABG Base Excess (Actual) 5.4 VBG pH 7.30 L VBG pCO2 66 VBG pO2 57 VBG HCO3 32 H VBG O2 Saturation 84.0 VBG Base Excess 4.9 Anion Gap Estim Creat Clear Calc Estimated GFR Random Glucose Lactic Acid Calcium Magnesium Total Bilirubin Direct Bilirubin AST ALT Alkaline Phosphatase Troponin I High Sens C-Reactive Protein NT-Pro-B Natriuret Pep Total Protein Albumin Lipase Influenza Type A (PCR) Influenza Type B (PCR) RSV RNA Qual (PCR) SARS-CoV-2 RNA (RT-PCR) Assessment and Plan (1) Acute on chronic respiratory failure with hypoxia and hypercapnia: Status: Acute (2) Aspiration pneumonia: Status: Acute (3) Acute exacerbation of chronic obstructive pulmonary disease: Status: Acute Plan Patient is a 79-year-old female with a past medical history significant for COPD on 2 L at baseline, history CVA now bed-bound, diabetes, seizure disorder, chronic sacral decubitus wound, minimal verbal and nonambulatory who presented to the ED last night due to shortness of breath and fatigue. Patient was recently discharged on fter a complicated admission including intubation in the ICU. Acute on chronic respiratory failure with hypoxia and hypercapnia secondary to acute COPD exacerbation with possible aspiration pneumonia - duo nebs, Solu-Medrol - cefepime for aspiration - titrate oxygen as needed, goal no greater than 92% - attempted suctioning by RT - [employer] eval from 06/24: puree, thin liquids, 1-1 feed, meds whole with puree - aspiration precautions - monitor CBC and BMP iron deficiency anemia - continue iron DM2 - glipizide - SSI prior CVA - clopidogrel + atorvastatin hyperthyroidism - methimazole neuropathy - pregabalin mood disorder - trazodone + fluoxetine Seizure disorder - Keppra wound care: Sacrum/coccyx deep tissue pressure injury present on admission : Off Load Pressure with Q2 hr turns and use of pillows - Cleanse with PH balance spray or wipes, pat dry. ?Apply thin layer of Triad to wound bed. Do not remove all of paste between applications as this may cause further skin damage.? Cover with foam dressing to aid in off loading and protection from friction. Change every other day and PRN. Bilateral heels: Elevate heels off of bed surface with pillows or boots. Float heels off of pillows. Apply skin prep allow to dry. Apply heel foam dressings, peel back and assess Q shift and change every 5-7 days and PRN. Med rec pending Full code VTE Prophylaxis: Heparin Patient with acute on chronic hypoxic and hypercapnic respiratory failure complicated by likely aspiration pneumonia, requiring admission for at least 2 midnight stay for IV antibiotics, steroids, breathing treatments and monitoring. Quality Stroke Does the patient have a stroke diagnosis?: No VTE Prior VTE?: No VTE Risk Level:: Medical - moderate - high VTE Device Contraindication: Treatment Not Indicated VTE Drug Contraindication: N/A - Med Ordered
[2025-06-26 06:53] LABS: ABG Refer to POC result
[2025-06-26 07:03] LABS: Alanine Aminotransferase 12 U/L (0-31); Albumin Level 3.5 g/dL (3.5-5.0); Alkaline Phosphatase 58 U/L (39-117); Anion Gap 12 (12-20); Aspartate Amino Transferase 22 U/L (5-31); Blood Urea Nitrogen 24 mg/dL (9-16); Calcium 9.3 mg/dL (8.4-10.2); Carbon Dioxide 26 mmol/L (22-29); Chloride 106 mmol/L (96-108); Creatinine Clr Calc Pharmacy 33.1; Estimated Glomerular Filt Rate 42; Potassium 5.4 mmol/L (3.3-5.1); Sodium 139 mmol/L (135-145); Total Protein 7.0 g/dL (6.5-8.0)
[2025-06-26 07:06] LABS: Glucose, Whole Blood 147 mg/dL (60-115)
[2025-06-26] MEDS: Albuterol/Iprat 2.5/0.5MG 3 ML AMPUL.NEB INHALE ×4 (07:46→18:59)
[2025-06-26] MEDS: 0.9 % Sodium Chloride Flush 3 ML SYRINGE IVFLUSH ×3 (08:49→22:00)
--- NOTE | 2025-06-26 08:51 | MHC.EDTECH ---
Addendum entered by Billie Moya 06/26/25 09:07: This tech went in to check on Pt. She had not touched her breakfast. I assisted the Pt in a 1:1 feed. She drank all of her coffee and half of an apple sauce. Pt requested a break from eating at this time. Original Note: Pt sat up in bed for breakfast. Pt states that she can feed herself.
--- NOTE | 2025-06-26 08:52 | PC.NURSE ---
Pt tolerated 1 am medication with water.
--- NOTE | 2025-06-26 09:27 | HO.NURTONUR ---
79F presents to ED with SOB, cough. Pt Being admitted for acute on chronic respiratory failure with hypoxia and hypercapnia secondary to acute COPD exacerbation with possible aspiration pneumonia. Hx CHF, DM, seizures, dementia, COPD on 2L chronically, high cholesterol, CVA (with right droop, speech difficult to understand, bedbound), baseline weakness, sacrum/coccyx pressure injury. Admitted 06/17 for acute encephalopathy/SOB/sepsis and was intubated (extubated 06/20). Discharged to [facility] 06/24 (assisted living with [employer], pt is a steve lift). Speech eval 06/24: puree diet, thin liquids, 1:1 feed, meds whole with puree. Alert, speech difficult to understand. Purewick in place. Right thumb #22, MENDOZA #18 US guided PIV. SR on tele, 2L nasal cannula (chronic).
--- NOTE | 2025-06-26 10:38 | PC.NURSE ---
Pt transferred into hospital bed. information systems security specialist at bedside to help assess chronic coccyx wound (photos taken by barrel bridge assembler) - triad cream and foam applied. Foam applied to left heel as well and bilateral heels floated off bed with a pillow.
--- NOTE | 2025-06-26 10:52 | PHA.MEDREC ---
Addendum entered by Puma Jimenez PharmD 06/26/25 11:10: reviewed Original Note: Pharmacy Consult ? Medication Reconciliation Pharmacy has completed the medication reconciliation. Pt not reactive when I tried to talk to her, spoke with Mariely ([phone]) and she confirmed pt was just discharged from 06/24 and there are no changed from those meds from [place]; pt was stopped on the Furosemide, she was prescribed an antibiotic (Cefuroxime) but was not able to start that per Mariely and pt Glipizide 5mg tabs changed from 1 tab (5mg) to now 1/2 tabs (2.5mg) once daily.
--- NOTE | 2025-06-26 10:55 | MHC.EDTECH ---
Pericare provided, purewick in place at this time.
--- NOTE | 2025-06-26 10:57 | PC.NURSE ---
Air loss pump added to mattress.
[2025-06-26 11:59] LABS: Glucose, Whole Blood 139 mg/dL (60-115)
--- NOTE | 2025-06-26 12:04 | HO.WOUND ---
Wound Consult: Initial 79 yr old female admitted to [facility] on 06/26/25- See progress notes and H&P for detailed history. Wound consult placed for sacral wound. Patient agreeable to assessment and photo documentation. Patient seen in the ED with direct care staff at bedside, patient transferred from stretcher to hospital bed. patient seen on previous admissions by wound care. Sacrum Etiology: Sacrum deep tissue pressure injury Present on Admission in evolution Measurements: 5cm x 8cm x 0.1cm Wound Bed: moderate area of impaired skin integrity across sacrum- left lower sacrum/upper buttock with area of deep purple intact nonblanching skin, right upper sacrum with intact nonblanching purple , scattered areas of shallow moist pink open wounding - consistent with DTI in evolution - moist and shearing factors noted - patient with pale pink scar tissue underlying to area as well putting pt at risk for skin re- injury. Drainage / Odor: scant serous no odor Edges: ? open irregular Shala wound: ? No Induration, Fluctuance or Warmth noted Pain: none Goals of Treatment: ? triad paste for moist healing and moisture barrier- foam dressing for offloading Left heel/achilles Etiology: left heel/achilles deep tissue pressure injury Present on Admission Wound Bed: two areas of intact purple nonblanching overlying pale pink scar tissue of previous skin injury. Drainage / Odor: none? Shala wound: ? No Induration, Fluctuance or Warmth noted Pain: none Goals of Treatment: ? offloading with pillows/boots and foams Right heel/achilles- small area of intact hyperpigmentation to achillies area - cannot completely rule out pressure/friction components, but no obvious source of pressure at this time- protect with foams. Recommendations: 1. Turn and Reposition every 2 hours and as needed for patient comfort. Use pillows or wedges to support off loading positions. 2. Off Load all bony prominences with use of pillows and heel boots if needed. Apply Preventative foams where needed. 3. Monitor for incontinence and moisture control, use barrier creams when needed for prevention and treatment. 4. Provide adequate and supplemental nutrition. 5. Order or Continue low air loss mattress. 6. When applicable maintain blood glucose levels per Providers order. Sacrum: Off Load Pressure with Q2 hr turns and use of pillows - Cleanse with PH balance spray or wipes, pat dry. ?Apply thin layer of Triad to wound bed. Do not remove all of paste between applications as this may cause further skin damage.? Cover with foam dressing to aid in off loading and protection from friction. Change every other day and PRN. Bilateral heels: Elevate heels off of bed surface with pillows. Float heels off of pillows. Apply skin prep allow to dry. Apply heel foam dressings, peel back and assess Q shift and change every 5-7 days and PRN. Re-consult wound care Nurse for wound deterioration or wound changes.
--- NOTE | 2025-06-26 14:06 | MHC.EDTECH ---
This tech attempted to assist the Pt to eat lunch. The Pt states she is not hungry right now.
--- NOTE | 2025-06-26 15:58 | MHC.CM.PN ---
IMM 06/26/25, Pt was just DC from here, back in ED. She lives in [facility], and she has 24/ home care from [facility] On care, and she was D/C'd with services from [facility] (likely had not even started yet). Pt. is bed bound at baseline. DCP may be to SNF care, CM to follow for DC needs.
--- NOTE | 2025-06-26 16:21 | P.PNIM_ITS ---
Subjective Subjective Date of Service: 06/26/25 Interval History: Pt seen and evaluated where she is resting comfortably in bed Appears more awake and alert Complains of some SOB and cough No other acute complaints Review of Systems Review of Systems: Yes all other systems are reviewed and are negative Physical Exam 2 Exam: Exam: General: AOx3, no acute distress. Resp: CTA bilaterally, though difficult to assess due to body habitus and limited mobility CVS: S1, S2, RRR GI: +BS, NT, no distention Skin: Warm, dry Neuro: Chronic left-sided hemiplegia. Limited mobility of right leg though capable of moving right upper extremity. Chronic slurred speech from previous CVA Extremities: No edema Psych: Appropriate affect Vital Signs: Vital Signs: Last Vital Signs Temp 97.5 F 06/26/25 14:04 Pulse 66 06/26/25 15:06 Resp 15 06/26/25 15:06 BP 123/54 L 06/26/25 14:04 Pulse Ox 98 06/26/25 14:04 O2 Del Method Nasal Cannula 06/26/25 14:04 O2 Flow Rate 2 06/26/25 14:04 Oxygen Flow Rate 2 06/25/25 21:23 BMI result Body Mass Index 32.0 Objective Data Active Medications Acetaminophen (Acetaminophen 325 Mg Tablet) 650 mg PO Q6H PRN PRN Reason: Pain, Mild 1-3,fever,headache Albuterol/Ipratropium (Albuterol/Iprat 2.5/0.5mg 3 Ml Ampul.Neb) 3 ml INHALE RQ4H WHILE AWAKE [facility] Last Admin: 06/26/25 15:06 Dose: 3 ml Documented By: CHUNG Calcium Carbonate (Calcium Carbonate 750 Mg Tab.Chew) 750 mg PO Q4H PRN PRN Reason: Heartburn Dextrose (Dextrose 50 % 25 Gm/50 Ml Syringe) 25 gm IVPUSH Q15M PRN; Protocol PRN Reason: per Hypoglycemia Standing Ord. Glucose (Glucose Gel 15 Gm Gel..Gram.) 15 gm PO Q15M PRN; Protocol PRN Reason: per Hypoglycemia Standing Ord. Heparin Sodium (Porcine) (Heparin Sodium,Porcine 5,000 Unit/Ml Vial) 5,000 unit SUBCUT Q12H [facility] Last Admin: 06/26/25 08:48 Dose: 5,000 unit Documented By: LIZETT Cefepime HCl (Maxipime) 2 gm in 50 mls @ 100 mls/hr IV Q12H [facility] Last Infusion: 06/26/25 09:18 Dose: Infused Documented By: LIZETT Insulin Human Lispro (Insulin Lispro 100 Unit/Ml 3 Ml Vial) 0 unit SUBCUT QIDACHS [facility]; Protocol Last Admin: 06/26/25 12:12 Dose: Not Given Documented By: LIZETT Non-Admin Reason: No Insulin Coverage Levetiracetam (Levetiracetam 250 Mg Tablet) 250 mg PO BID [facility] Last Admin: 06/26/25 08:48 Dose: 250 mg Documented By: LIZETT Magnesium Hydroxide (Milk Of Magnesia 30 Ml Oral.Susp) 30 ml PO DAILY PRN PRN Reason: Constipation Melatonin (Melatonin 3 Mg Tablet) 6 mg PO BEDTIME PRN PRN Reason: Insomnia Methylprednisolone Sodium Succinate (Methylprednisolone Sod Succ 125 Mg/2 Ml Vial) 60 mg IVPUSH BID [facility] Last Admin: 06/26/25 08:48 Dose: 60 mg Documented By: LIZETT Ondansetron HCl (Ondansetron Hcl 4 Mg/2 Ml Vial) 4 mg IVPUSH Q8H PRN PRN Reason: Nausea and Vomiting Sodium Chloride (0.9 % Sodium Chloride Flush 3 Ml Syringe) 3 ml IVFLUSH QSHIFT [facility] Last Admin: 06/26/25 08:49 Dose: 3 ml Documented By: LIZETT Tramadol HCl (Tramadol Hcl 50 Mg Tablet) 50 mg PO Q6H PRN PRN Reason: Pain, Moderate(Pain Scale 4-6) Labs 06/25/25 21:53 06/26/25 06:38 Labs: Laboratory Results - last 24 hr 06/25/25 06/25/25 06/25/25 21:53 22:01 23:11 MCV 88.5 MCH 27.4 MCHC 31.0 RDW 16.3 H Plt Count 218 D MPV 11.3 Immature Gran % (Auto) 0.7 H Neut % (Auto) 66.3 Lymph % (Auto) 20.6 [place] % (Auto) 9.8 Eos % (Auto) 2.5 Baso % (Auto) 0.1 Lymph # (Auto) 1.4 [place] # (Auto) 0.7 Eos # (Auto) 0.2 Baso # (Auto) 0.0 Abs Immat Gran (auto) 0.05 H Absolute Neuts (auto) 4.6 Absolute Nucleated RBC 0.000 Nucleated RBC % (auto) 0.0 PT 11.6 D INR 0.9 D-Dimer High Sensitivty 523 O2 Saturation ABG pH at Pt Temp ABG pCO2 at Pt Temp ABG pO2 at Pt Temp ABG HCO3 ABG Base Excess (Actual) VBG pH 7.27 L VBG pCO2 73 VBG pO2 35 VBG HCO3 34 H VBG O2 Saturation 46.0 VBG Base Excess 5.7 Anion Gap 9 L Estim Creat Clear Calc 30.9 Estimated GFR 38 POC Glucose Random Glucose 118 H Lactic Acid 1.0 Calcium 9.0 Magnesium 2.0 Total Bilirubin 0.2 Direct Bilirubin < 0.2 AST 21 ALT 11 Alkaline Phosphatase 58 Troponin I High Sens 11.8 D C-Reactive Protein 2.13 H NT-Pro-B Natriuret Pep 2614.4 H Total Protein 6.8 Albumin 3.3 L Lipase 20 Influenza Type A (PCR) NEGATIVE Influenza Type B (PCR) NEGATIVE RSV RNA Qual (PCR) NEGATIVE SARS-CoV-2 RNA (RT-PCR) NEGATIVE 06/25/25 06/26/25 06/26/25 23:18 03:26 06:38 MCV MCH MCHC RDW Plt Count MPV Immature Gran % (Auto) Neut % (Auto) Lymph % (Auto) [place] % (Auto) Eos % (Auto) Baso % (Auto) Lymph # (Auto) [place] # (Auto) Eos # (Auto) Baso # (Auto) Abs Immat Gran (auto) Absolute Neuts (auto) Absolute Nucleated RBC Nucleated RBC % (auto) PT INR D-Dimer High Sensitivty O2 Saturation 99.0 ABG pH at Pt Temp 7.35 ABG pCO2 at Pt Temp 56 H ABG pO2 at Pt Temp 125 H ABG HCO3 32 H ABG Base Excess (Actual) 5.4 VBG pH 7.30 L VBG pCO2 66 VBG pO2 57 VBG HCO3 32 H VBG O2 Saturation 84.0 VBG Base Excess 4.9 Anion Gap 12 Estim Creat Clear Calc 33.1 Estimated GFR 42 POC Glucose Random Glucose 152 H Lactic Acid Calcium 9.3 Magnesium Total Bilirubin 0.2 Direct Bilirubin AST 22 ALT 12 Alkaline Phosphatase 58 Troponin I High Sens C-Reactive Protein NT-Pro-B Natriuret Pep Total Protein 7.0 Albumin 3.5 Lipase Influenza Type A (PCR) Influenza Type B (PCR) RSV RNA Qual (PCR) SARS-CoV-2 RNA (RT-PCR) 06/26/25 06/26/25 07:01 11:54 MCV MCH MCHC RDW Plt Count MPV Immature Gran % (Auto) Neut % (Auto) Lymph % (Auto) [place] % (Auto) Eos % (Auto) Baso % (Auto) Lymph # (Auto) [place] # (Auto) Eos # (Auto) Baso # (Auto) Abs Immat Gran (auto) Absolute Neuts (auto) Absolute Nucleated RBC Nucleated RBC % (auto) PT INR D-Dimer High Sensitivty O2 Saturation ABG pH at Pt Temp ABG pCO2 at Pt Temp ABG pO2 at Pt Temp ABG HCO3 ABG Base Excess (Actual) VBG pH VBG pCO2 VBG pO2 VBG HCO3 VBG O2 Saturation VBG Base Excess Anion Gap Estim Creat Clear Calc Estimated GFR POC Glucose 147 H 139 H Random Glucose Lactic Acid Calcium Magnesium Total Bilirubin Direct Bilirubin AST ALT Alkaline Phosphatase Troponin I High Sens C-Reactive Protein NT-Pro-B Natriuret Pep Total Protein Albumin Lipase Influenza Type A (PCR) Influenza Type B (PCR) RSV RNA Qual (PCR) SARS-CoV-2 RNA (RT-PCR) Assessment and Plan (1) Acute on chronic respiratory failure with hypoxia and hypercapnia: Status: Acute (2) Aspiration pneumonia: Status: Acute Plan Patient is a 79-year-old female with a past medical history significant for COPD on 2 L at baseline, history CVA now bed-bound, diabetes, seizure disorder, chronic sacral decubitus wound, minimal verbal and nonambulatory who presented to the ED last night due to shortness of breath and fatigue. Patient was recently discharged on fter a complicated admission including intubation in the ICU. 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: puree, thin liquids, 1-1 feed, meds whole with puree - aspiration precautions - monitor CBC and BMP Elevated BNP - NT pro BNP 2614.4; no previous available - CTA neg for PE, but with small right and minimal left pleural effusions; eval limited for pulmonary edema - will get echo and CXR Pulmonary nodule - CTA shows right upper lobe pulmonary nodules and subcentimeter lingual nodule with probable mediastinal lymphadenopathy; malignancy not excluded - follow up outpatient iron deficiency anemia - continue iron DM2 - glipizide - SSI prior CVA - clopidogrel + atorvastatin hyperthyroidism - methimazole neuropathy - pregabalin mood disorder - trazodone + fluoxetine Seizure disorder - Keppra wound care: Sacrum/coccyx deep tissue pressure injury present on admission : Off Load Pressure with Q2 hr turns and use of pillows - Cleanse with PH balance spray or wipes, pat dry. ?Apply thin layer of Triad to wound bed. Do not remove all of paste between applications as this may cause further skin damage.? Cover with foam dressing to aid in off loading and protection from friction. Change every other day and PRN. Bilateral heels: Elevate heels off of bed surface with pillows or boots. Float heels off of pillows. Apply skin prep allow to dry. Apply heel foam dressings, peel back and assess Q shift and change every 5-7 days and PRN. Med rec pending Full code VTE Prophylaxis: Heparin Pt requires continued hospitalization due to need for administration of IV antibiotics and further evaluation for acute on chronic hypoxic respiratory failure. Quality Stroke Does the patient have a stroke diagnosis?: No VTE Prior VTE?: No VTE Risk Level:: Medical - moderate - high VTE Device Contraindication: Treatment Not Indicated VTE Drug Contraindication: N/A - Med Ordered
[2025-06-26 16:58] LABS: Glucose, Whole Blood 138 mg/dL (60-115)
[2025-06-27] VITALS (12 sets, daily range): BP systolic 110–140; BP diastolic 53–63; PULSE 61–92; RESP 15–20; TEMP 36.3–37.1; O2SAT 93–100; BMI 34.3
--- NOTE | 2025-06-27 | EEG_ITS ---
History: congestive heart failure, type 2 diabetes mellitus, aortic stenosis, seizure, dementia, seizure, COPD, peripheral neuropathy,HLD, CVA, heart failure Description: Medication: Acetaminophen, Albuterol/Ipratropium, Atorvastatin Calcium Calcium Carbonate Clopidogrel Bisulfate Cyanocobalamin Dextrose Docusate Sodium Ferrous Sulfate Folic Acid Glipizide Glucose Heparin Sodium Insulin Human Lispro Levetiracetam Magnesium Hydroxide Melatonin Methimazole Metoprolol Succinate Ondansetron HCl Oxybutynin Chloride Pregabalin Sodium Chloride Tramadol HCl Trazodone HCl L Vitamin D Technical description:? Photic stimulation: Yes Hyperventilation:?No Behavioral state: able to follow commands, non verbal State of Consciousness: Skull defect: None Sedation: None Handedness: Non verbal Duration of study:? 28min ? ? 35sec This is a 16 channel EEG with an EKG lead. Patient is reported nonverbal but able to follow commands. Background EEG rhythm is diffusely slow and theta to delta range with no obvious asymmetry or paroxysmal tendency. Photic stimulation does not produce any significant driving. Hyperventilation is not performed. Cardiac lead does not reveal any significant abnormality. Impression: Generalized slowing with no epileptic discharges. MTDD
--- NOTE | 2025-06-27 07:00 | CA_ITS ---
Transthoracic Echocardiogram Patient (Last, First, Middle): Rosi Hernández, Gender: F Date of : 1945 Age: 79 Procedure Date: 06/27/2025 Procedure Type: Transthoracic [place] [facility] [place]: 157.48 cm Weight: 102.97 kg BSA: 2.02 m2 Heart Rate: 76 bpm BP: 131 / 63 mmHg Picture Enlarger: TO Referring MD: Misty ISRAEL Symptoms: ?CHF; CTA w/pleural effusions and questionable pul Study Quality: Adequate Conclusions: - The left ventricular systolic function is normal. The calculated ejection fraction is 56% by biplane method. - There is severe aortic valve stenosis. Findings Procedure Information Contrast agent, definity, is being given per protocol without apparent complications. Left Ventricle Normal left ventricular cavity size. The left ventricular systolic function is normal. The calculated ejection fraction is 56% by biplane method. There is no evidence of regional wall motion abnormalities. Evidence suggests grade I (mild) diastolic dysfunction. There is mild septal asymmetric hypertrophy. Right Ventricle Normal right ventricular cavity size. There is mildly decreased right ventricular systolic function. Atria Both atria are normal in size. Aortic Valve There is severe calcification of the aortic valve. There is severe aortic valve stenosis. The mean gradient is 35 mmHg. The aortic valve area is 0.83 cm2. There is no aortic valve regurgitation. Dimensionless index 0.21. Stroke volume index 38ml/m2. Mitral Valve There is severe mitral annular calcification. There is trace mitral valve regurgitation. There is no mitral valve stenosis. Pulmonic Valve The pulmonic valve is likely normal. Tricuspid Valve There is mild tricuspid valve regurgitation. Mild pulmonary hypertension is present. Great Vessels The asc aorta is normal in size. Venous The inferior vena cava is mildly dilated and collapses less than 50% with inspiration. Pericardium/Pleural There is no evidence of pericardial effusion. Prior Study Comparison Changes noted compared to prior study dated: 06/17/2024. Progression of aortic valve stenosis. Measurements 2D Linear Measurements IVSd: 1.15 0.6-0.9/0.6-1.0 cm LVIDd: 4.10 3.9-5.3/4.2-5.9 cm LVIDd Index: 2.03 2.4-3.2/2.2-3.1 cm/m2 LVIDs: 2.60 2.0-3.6 cm LVPWd: 1.02 0.7-1.1 cm LA Diam: 3.90 2.7-3.8/3.0-4.0 cm LAIDs Index: 1.93 1.5-2.3 cm/m2 LV Mass: 184.67 67-162/88-224 g LV Mass Index: 91.42 43-95/49-115 g/m2 LVOT Diam: 2.00 3.0+(-)1.3 cm 2D Systolic Function EF 4C: 59.00 >55% EF 2C: 55.40 >55% EF BiP: 55.90 >55% Mitral Valve MV VTI: 0.43 MV Pk Jlaeel: 1.69 MV Mn Jaleel: 1.07 MV Pk Grad: 11.00 MV Mn Grad: 5.00 MV Pk E: 1.23 MV PK A: 1.36 MV Decel Time: 251.00 E/A: 0.90 E'Lateral: 4.13 E'Medial: 4.13 E/E' Med: 29.80 E/E' Lat: 29.80 PHT: 74.00 MVA PHT: 2.97 MVA Continuity: 1.78 Decel [place]: 4.88 Aortic Valve AoV Pk Jaleel: 3.83 AoV Mn Jaleel: 2.86 AoV VTI: 0.91 AoV Pk Grad: 59.00 Aov Mn Grad: 35.00 LUL Cont.VTI: 0.83 LVOT LVOT Pk Jaleel: 0.80 LVOT Mn Jaleel: 0.59 LVOT VTI: 0.24 LVOT Pk Grad: 3.00 LVOT Mn Grad: 2.00 LVOT Diam: 2.00 LVOT Area: 3.14 Diastolic Function MV Pk E: 1.23 MV Pk A: 1.36 E/A: 0.90 E'Medial: 4.13 E/E' Med: 29.80 E' Laterial: 4.13 E/E' Lat: 29.80 Right Ventricle TAPSE (mm): 15.70 TVS' Jaleel: 9.57 Tricuspid Valve TR Pk Jaleel: 2.87 TR Pk Grad: 33.00 RA Press: 15.00 RVSP: 48.00 Great Vessels Aorta Sinus of Valsalva: 2.83 2.0-3.5 cm Ao Asc: 3.10 2.1-3.4 cm Updated in Other Vendor System with Status of Final Mark Kc MD electronically signed on 06/27/2025 2:48:58 PM with status of Final
[2025-06-27] MEDS: Albuterol/Iprat 2.5/0.5MG 3 ML AMPUL.NEB INHALE ×2 (07:39→18:41)
[2025-06-27 07:47] LABS: Glucose, Whole Blood 125 mg/dL (60-115)
[2025-06-27] MEDS: cefEPime HCl/D5W 2 GM/50 ML PIGGYBACK IV (08:09)
[2025-06-27] MEDS: 0.9 % Sodium Chloride Flush 3 ML SYRINGE IVFLUSH ×3 (08:09→20:55)
[2025-06-27] MEDS: oxyBUTYnin chloride ER 5 MG TAB.ER.24 PO (08:10)
[2025-06-27] MEDS: Metoprolol Succinate ER 25 MG TAB.ER.24H PO (08:11)
[2025-06-27] MEDS: Ferrous Sulfate 324 MG TABLET.DR PO (08:11)
[2025-06-27 08:41] LABS: Hematocrit 28.6 % (37.0-47.0); Hemoglobin 8.9 g/dl (12.0-16.0); Mean Corpuscular HGB Conc 31.1 g/dl (31.0-35.0); Mean Corpuscular Hemoglobin 27.4 pg (27.0-33.0); Mean Corpuscular Volume 88.0 fL (80.0-98.0); NRBC Abs Auto 0.000 X10*3/uL (0.0-0.012); NRBC Pct Auto 0.0 /100WBC (0.0-0.2); Platelet Count 236 X10*3/uL (160-400); Red Blood Count 3.25 X10*6/uL (4.20-5.50); White Blood Count 7.5 X10*3/uL (4.8-10.8)
[2025-06-27 08:58] LABS: Anion Gap 11 (12-20); Blood Urea Nitrogen 23 mg/dL (9-16); Calcium 9.2 mg/dL (8.4-10.2); Carbon Dioxide 31 mmol/L (22-29); Chloride 106 mmol/L (96-108); Creatinine Clr Calc Pharmacy 34.6; Estimated Glomerular Filt Rate 42; Potassium 5.7 mmol/L (3.3-5.1); Sodium 142 mmol/L (135-145)
[2025-06-27 09:06] LABS: NT Pro B Type Natriuretic Pept 1726.9 pg/mL (<300)
--- NOTE | 2025-06-27 11:03 | MHC.CLN ---
CONSULT PT WITH INCREASED NUTRITION RISK R/T PRESSURE INJURY DIET RX: 2000DM PUREED RECOMMEND ADDING ENSURE MAX BID TO PROMOTE WOUND HEALING SUPP TO PROVIDE 300KCALS, 60G PROTEIN MONITOR PO INTAKE AND ENCOURAGE SUPPLEMENTS SEE FULL ASSESSMENT
[2025-06-27 11:29] LABS: Glucose, Whole Blood 142 mg/dL (60-115)
[2025-06-27] MEDS: Furosemide 40 MG/4 ML VIAL IVPUSH (11:35)
--- NOTE | 2025-06-27 12:09 | P.PNIM_ITS ---
Subjective Subjective Date of Service: 06/27/25 Interval History: Pt seen and evaluated this morning during rounds where she was awake and alert Difficult to understand due to chronic dysarthria from previous stroke, but answering appropriately Does not appear to have any acute medical complaints Potassium increased this morning to 5.7 NT pro BNP decreased to 1726.9 Notified by nursing later in the afternoon that pt was somnolent, difficult to arouse Vitals stable, afebrile, ABG reassuring Concern for breakthrough seizures Review of Systems Review of Systems: Yes all other systems are reviewed and are negative Physical Exam 2 Exam: Exam: General: Somnolent, difficult to arouse, falling back asleep. Can nod but not answering. Resp: CTA bilaterally although difficult to assess due to body habitus and limited mobility CVS: S1, S2, RRR GI: +BS, NT, no distention Skin: Warm, dry Neuro: Chronic left-sided hemiplegia. Pt capable only of moving right upper extremity, but with limited mobility. Pt with chronic slurred speech from previous CVA Extremities: No edema Psych: Somnolent Vital Signs: Vital Signs: Last Vital Signs Temp 98.0 F 06/27/25 11:45 Pulse 64 06/27/25 11:45 Resp 18 06/27/25 11:45 BP 126/58 L 06/27/25 11:45 Pulse Ox 100 06/27/25 11:45 O2 Del Method Nasal Cannula 06/27/25 11:45 O2 Flow Rate 2 06/27/25 11:45 Oxygen Flow Rate 2 06/25/25 21:23 BMI result Body Mass Index 34.3 Objective Data Active Medications Acetaminophen (Acetaminophen 325 Mg Tablet) 650 mg PO Q6H PRN PRN Reason: Pain, Mild 1-3,fever,headache Albuterol/Ipratropium (Albuterol/Iprat 2.5/0.5mg 3 Ml Ampul.Neb) 3 ml INHALE RQ4H WHILE AWAKE [facility] Last Admin: 06/27/25 11:27 Dose: Not Given Documented By: GABRIELLE Non-Admin Reason: Patient Asleep Atorvastatin Calcium (Atorvastatin Calcium 80 Mg Tablet) 80 mg PO BEDTIME [facility] Last Admin: 06/26/25 21:32 Dose: 80 mg Documented By: CHAGO Calcium Carbonate (Calcium Carbonate 750 Mg Tab.Chew) 750 mg PO Q4H PRN PRN Reason: Heartburn Clopidogrel Bisulfate (Clopidogrel Bisulfate 75 Mg Tablet) 75 mg PO DAILY [facility] Last Admin: 06/27/25 08:11 Dose: 75 mg Documented By: JOSE Cyanocobalamin (Cyanocobalamin (Vitamin B-12) 500 Mcg Tablet) 500 mcg PO DAILY [facility] Last Admin: 06/27/25 08:12 Dose: 500 mcg Documented By: JOSE Dextrose (Dextrose 50 % 25 Gm/50 Ml Syringe) 25 gm IVPUSH Q15M PRN; Protocol PRN Reason: per Hypoglycemia Standing Ord. Docusate Sodium (Docusate Sodium 100 Mg Capsule) 100 mg PO BID [facility] Last Admin: 06/27/25 08:09 Dose: 100 mg Documented By: JOSE Ferrous Sulfate (Ferrous Sulfate 324 Mg Tablet.Dr) 324 mg PO DAILY [facility] Last Admin: 06/27/25 08:11 Dose: 324 mg Documented By: JOSE Fluoxetine HCl (Fluoxetine Hcl 20 Mg Capsule) 20 mg PO DAILY [facility] Last Admin: 06/27/25 08:09 Dose: 20 mg Documented By: JOSE Folic Acid (Folic Acid 1 Mg Tablet) 0.5 mg PO DAILY [facility] Last Admin: 06/27/25 08:12 Dose: 0.5 mg Documented By: JOSE Glipizide (Glipizide Xl 2.5 Mg Tab.Er.24) 2.5 mg PO DAILY [facility] Last Admin: 06/27/25 08:09 Dose: 2.5 mg Documented By: JOSE Glucose (Glucose Gel 15 Gm Gel..Gram.) 15 gm PO Q15M PRN; Protocol PRN Reason: per Hypoglycemia Standing Ord. Heparin Sodium (Porcine) (Heparin Sodium,Porcine 5,000 Unit/Ml Vial) 5,000 unit SUBCUT Q12H [facility] Last Admin: 06/27/25 08:12 Dose: 5,000 unit Documented By: JOSE Cefepime HCl (Maxipime) 2 gm in 50 mls @ 100 mls/hr IV Q12H [facility] Last Infusion: 06/27/25 08:40 Dose: Infused Documented By: JOSE Insulin Human Lispro (Insulin Lispro 100 Unit/Ml 3 Ml Vial) 0 unit SUBCUT QIDACHS [facility]; Protocol Last Admin: 06/27/25 11:30 Dose: Not Given Documented By: JOSE Non-Admin Reason: No Insulin Coverage Levetiracetam (Levetiracetam 250 Mg Tablet) 250 mg PO BID [facility] Last Admin: 06/27/25 08:09 Dose: 250 mg Documented By: JOSE Magnesium Hydroxide (Milk Of Magnesia 30 Ml Oral.Susp) 30 ml PO DAILY PRN PRN Reason: Constipation Melatonin (Melatonin 3 Mg Tablet) 6 mg PO BEDTIME PRN PRN Reason: Insomnia Methimazole (Methimazole 5 Mg Tablet) 2.5 mg PO MOWEFR [facility] Last Admin: 06/27/25 08:15 Dose: 2.5 mg Documented By: JOSE Methylprednisolone Sodium Succinate (Methylprednisolone Sod Succ 125 Mg/2 Ml Vial) 60 mg IVPUSH BID [facility] Last Admin: 06/27/25 08:12 Dose: 60 mg Documented By: JOSE Metoprolol Succinate (Metoprolol Succinate Er 25 Mg Tab.Er.24h) 25 mg PO DAILY [facility]; Protocol Last Admin: 06/27/25 08:11 Dose: 25 mg Documented By: JOSE Ondansetron HCl (Ondansetron Hcl 4 Mg/2 Ml Vial) 4 mg IVPUSH Q8H PRN PRN Reason: Nausea and Vomiting Oxybutynin Chloride (Oxybutynin Chloride Er 5 Mg Tab.Er.24) 5 mg PO DAILY [facility] Last Admin: 06/27/25 08:10 Dose: 5 mg Documented By: JOSE Pregabalin (Pregabalin 150 Mg Capsule) 150 mg PO TID [facility] Last Admin: 06/27/25 08:10 Dose: 150 mg Documented By: JOSE Sodium Chloride (0.9 % Sodium Chloride Flush 3 Ml Syringe) 3 ml IVFLUSH QSHIFT [facility] Last Admin: 06/27/25 08:09 Dose: 3 ml Documented By: JOSE Tramadol HCl (Tramadol Hcl 50 Mg Tablet) 50 mg PO Q6H PRN PRN Reason: Pain, Moderate(Pain Scale 4-6) Trazodone HCl (Trazodone Hcl 100 Mg Tablet) 100 mg PO BEDTIME [facility] Last Admin: 06/26/25 21:33 Dose: 100 mg Documented By: CHAGO Vitamin D (Cholecalciferol (Vitamin D3) 25 Mcg Tablet) 25 mcg PO DAILY [facility] Last Admin: 06/27/25 08:10 Dose: 25 mcg Documented By: JOSE Labs 06/27/25 08:05 06/27/25 14:06 Labs: Laboratory Results - last 24 hr 06/26/25 06/26/25 06/27/25 16:52 21:01 07:35 MCV MCH MCHC RDW Plt Count MPV Absolute Nucleated RBC Nucleated RBC % (auto) Anion Gap Estim Creat Clear Calc Estimated GFR POC Glucose 138 H 110 125 H Random Glucose Calcium NT-Pro-B Natriuret Pep 06/27/25 06/27/25 08:05 11:09 MCV 88.0 MCH 27.4 MCHC 31.1 RDW 16.6 H Plt Count 236 MPV 11.3 Absolute Nucleated RBC 0.000 Nucleated RBC % (auto) 0.0 Anion Gap 11 L Estim Creat Clear Calc 34.6 Estimated GFR 42 POC Glucose 142 H Random Glucose 123 H Calcium 9.2 NT-Pro-B Natriuret Pep 1726.9 H Microbiology Microbiology Results: Microbiology 06/25/25 23:11 Blood Culture - Preliminary Blood - Venous No growth after 24 hours. 06/25/25 21:53 Blood Culture - Preliminary Blood - Venous No growth after 24 hours. Assessment and Plan (1) Acute encephalopathy: Status: Acute Plan Patient is a 79-year-old female with a past medical history significant for COPD on 2 L at baseline, history CVA now bed-bound, diabetes, seizure disorder, chronic sacral decubitus wound, minimal verbal and nonambulatory who presented to the ED last night due to shortness of breath and fatigue. Patient was recently discharged on fter a complicated admission including intubation in the ICU. Acute metabolic encephalopathy - pt initially brought in for episode of lethargy - pt had repeat episode of unresponsiveness and lethargy on afternoon of 06/27 - ABG reassuring; vitals stable; pt afebrile - likely secondary to breakthrough seizures; pt appears postictal - will give Keppra 1000 mg IVx1 - increase tachypneic 500 mg p.o. b.i.d. 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: puree, thin liquids, 1-1 feed, meds whole with puree - aspiration precautions Elevated BNP - NT pro BNP 2614.4 --> 1726.9, decreased without intervention - CTA neg for PE, but with small right and minimal left pleural effusions; eval limited for pulmonary edema - CXR without clear pulmonary edema - Pt received Lasix 40mg IV x1 - echo showing preserved LVEF of 56% but showing severe aortic valve stenosis, similar to prior Pulmonary nodule - CTA shows right upper lobe pulmonary nodules and subcentimeter lingual nodule with probable mediastinal lymphadenopathy; malignancy not excluded - follow up outpatient iron deficiency anemia - continue iron DM2 - glipizide - SSI prior CVA - clopidogrel + atorvastatin hyperthyroidism - methimazole neuropathy - pregabalin mood disorder - trazodone + fluoxetine wound care: Sacrum/coccyx deep tissue pressure injury present on admission : Off Load Pressure with Q2 hr turns and use of pillows - Cleanse with PH balance spray or wipes, pat dry. ?Apply thin layer of Triad to wound bed. Do not remove all of paste between applications as this may cause further skin damage.? Cover with foam dressing to aid in off loading and protection from friction. Change every other day and PRN. Bilateral heels: Elevate heels off of bed surface with pillows or boots. Float heels off of pillows. Apply skin prep allow to dry. Apply heel foam dressings, peel back and assess Q shift and change every 5-7 days and PRN. Med rec pending Full code VTE Prophylaxis: Heparin Pt requires continued hospitalization as she continues to have electrolyte abnormalities with hyperkalemia as well as had repeat episode of unresponsiveness concerning for breakthrough seizure. Will require continued cardiac and neurological monitoring as well as response to increasing Keppra. Quality Stroke Does the patient have a stroke diagnosis?: No VTE Prior VTE?: No VTE Risk Level:: Medical - moderate - high VTE Device Contraindication: Treatment Not Indicated VTE Drug Contraindication: N/A - Med Ordered
[2025-06-27 14:32] LABS: Anion Gap 8 (12-20); Blood Urea Nitrogen 23 mg/dL (9-16); Calcium 9.2 mg/dL (8.4-10.2); Carbon Dioxide 32 mmol/L (22-29); Chloride 108 mmol/L (96-108); Creatinine Clr Calc Pharmacy 34.3; Estimated Glomerular Filt Rate 42; Potassium 5.2 mmol/L (3.3-5.1); Sodium 143 mmol/L (135-145)
[2025-06-27 15:43] LABS: Glucose, Whole Blood 80 mg/dL (60-115)
[2025-06-27 16:18] LABS: Glucose, Whole Blood 80 mg/dL (60-115)
[2025-06-27 16:47] LABS: ABG HCO3 34 mmol/L (22-26); ABG O2 % Saturation 87.0 %
[2025-06-27] MEDS: levETIRAcetam in NaCl (iso-os) 1,000 MG/100 ML PIGGYBACK 400 MG IV (17:03)
[2025-06-27 19:25] LABS: Glucose, Whole Blood 126 mg/dL (60-115)
[2025-06-27 23:15] LABS: ABG Refer to POC result
[2025-06-28] VITALS (10 sets, daily range): BP systolic 112–129; BP diastolic 53–60; PULSE 60–94; RESP 14–18; TEMP 36.1–37.3; O2SAT 90–96
[2025-06-28] MEDS: Albuterol/Iprat 2.5/0.5MG 3 ML AMPUL.NEB INHALE ×4 (07:20→18:28)
[2025-06-28 07:42] LABS: Glucose, Whole Blood 113 mg/dL (60-115)
[2025-06-28 07:58] LABS: Anion Gap 11 (12-20); Blood Urea Nitrogen 28 mg/dL (9-16); Calcium 9.5 mg/dL (8.4-10.2); Carbon Dioxide 31 mmol/L (22-29); Chloride 107 mmol/L (96-108); Creatinine Clr Calc Pharmacy 28.0; Estimated Glomerular Filt Rate 33; Potassium 5.2 mmol/L (3.3-5.1); Sodium 144 mmol/L (135-145)
[2025-06-28 09:07] LABS: MANUAL DIFF FLAG NO
[2025-06-28 09:10] LABS: Hematocrit 28.0 % (37.0-47.0); Hemoglobin 8.7 g/dl (12.0-16.0); Imm Gran Abs Auto 0.04 X10*3/uL (0.00-0.03); Imm Gran Pct Auto 0.6 % (0.0-0.4); Lymphocytes Absolute Auto 1.4 X10*3/uL (1.2-4.9); Mean Corpuscular HGB Conc 31.1 g/dl (31.0-35.0); Mean Corpuscular Hemoglobin 27.2 pg (27.0-33.0); Mean Corpuscular Volume 87.5 fL (80.0-98.0); NRBC Abs Auto 0.000 X10*3/uL (0.0-0.012); NRBC Pct Auto 0.0 /100WBC (0.0-0.2); Platelet Count 249 X10*3/uL (160-400); Red Blood Count 3.20 X10*6/uL (4.20-5.50); White Blood Count 7.0 X10*3/uL (4.8-10.8)
[2025-06-28] MEDS: oxyBUTYnin chloride ER 5 MG TAB.ER.24 PO (10:05)
[2025-06-28] MEDS: Metoprolol Succinate ER 25 MG TAB.ER.24H PO (10:07)
[2025-06-28] MEDS: Ferrous Sulfate 324 MG TABLET.DR PO (10:08)
[2025-06-28] MEDS: 0.9 % Sodium Chloride Flush 3 ML SYRINGE IVFLUSH (10:16)
[2025-06-28 11:34] LABS: Glucose, Whole Blood 124 mg/dL (60-115)
--- NOTE | 2025-06-28 15:09 | P.PNIM_ITS ---
Subjective Subjective Date of Service: 06/28/25 Interval History: Seen and evaluated in her room where she is resting comfortably in bed Appears at baseline with mentation and speech No repeat episodes of lethargy and/or confusion Reports feels okay without any acute medical complaints Physical Exam 2 Exam: Exam: General: Awake and alert, no acute distress. Resp: CTA bilaterally, though difficult to assess due to body habitus and limited mobility CVS: S1, S2, RRR GI: +BS, NT, no distention Skin: Warm, dry Neuro: Chronic left-sided hemiplegia. Limited mobility of right leg though capable of moving right upper extremity. Chronic slurred speech from previous CVA Extremities: No edema Vital Signs: Vital Signs: Last Vital Signs Temp 96.9 F 06/28/25 12:00 Pulse 64 06/28/25 12:00 Resp 16 06/28/25 12:00 BP 119/57 L 06/28/25 12:00 Pulse Ox 91 L 06/28/25 12:00 O2 Del Method Nasal Cannula 06/28/25 12:00 O2 Flow Rate 1 06/28/25 12:00 Oxygen Flow Rate 2 06/25/25 21:23 BMI result Body Mass Index 34.3 Objective Data Active Medications Acetaminophen (Acetaminophen 325 Mg Tablet) 650 mg PO Q6H PRN PRN Reason: Pain, Mild 1-3,fever,headache Albuterol/Ipratropium (Albuterol/Iprat 2.5/0.5mg 3 Ml Ampul.Neb) 3 ml INHALE RQ4H WHILE AWAKE [facility] Last Admin: 06/28/25 11:11 Dose: 3 ml Documented By: GABRIELLE Atorvastatin Calcium (Atorvastatin Calcium 80 Mg Tablet) 80 mg PO BEDTIME [facility] Last Admin: 06/27/25 20:44 Dose: 80 mg Documented By: JESSICA Calcium Carbonate (Calcium Carbonate 750 Mg Tab.Chew) 750 mg PO Q4H PRN PRN Reason: Heartburn Clopidogrel Bisulfate (Clopidogrel Bisulfate 75 Mg Tablet) 75 mg PO DAILY [facility] Last Admin: 06/28/25 10:07 Dose: 75 mg Documented By: JOSSE Cyanocobalamin (Cyanocobalamin (Vitamin B-12) 500 Mcg Tablet) 500 mcg PO DAILY [facility] Last Admin: 06/28/25 10:08 Dose: 500 mcg Documented By: JOSSE Dextrose (Dextrose 50 % 25 Gm/50 Ml Syringe) 25 gm IVPUSH Q15M PRN; Protocol PRN Reason: per Hypoglycemia Standing Ord. Docusate Sodium (Docusate Sodium 100 Mg Capsule) 100 mg PO BID [facility] Last Admin: 06/28/25 10:08 Dose: 100 mg Documented By: JOSSE Ferrous Sulfate (Ferrous Sulfate 324 Mg Tablet.Dr) 324 mg PO DAILY [facility] Last Admin: 06/28/25 10:08 Dose: 324 mg Documented By: JOSSE Fluoxetine HCl (Fluoxetine Hcl 20 Mg Capsule) 20 mg PO DAILY [facility] Last Admin: 06/28/25 10:05 Dose: 20 mg Documented By: JOSSE Folic Acid (Folic Acid 1 Mg Tablet) 0.5 mg PO DAILY [facility] Last Admin: 06/28/25 10:06 Dose: 0.5 mg Documented By: JOSSE Comments: Glipizide (Glipizide Xl 2.5 Mg Tab.Er.24) 2.5 mg PO DAILY [facility] Last Admin: 06/28/25 10:08 Dose: 2.5 mg Documented By: JOSSE Glucose (Glucose Gel 15 Gm Gel..Gram.) 15 gm PO Q15M PRN; Protocol PRN Reason: per Hypoglycemia Standing Ord. Heparin Sodium (Porcine) (Heparin Sodium,Porcine 5,000 Unit/Ml Vial) 5,000 unit SUBCUT Q12H [facility] Last Admin: 06/28/25 10:08 Dose: 5,000 unit Documented By: JOSSE Insulin Human Lispro (Insulin Lispro 100 Unit/Ml 3 Ml Vial) 0 unit SUBCUT QIDACHS [facility]; Protocol Last Admin: 06/28/25 13:57 Dose: Not Given Documented By: JOSSE Non-Admin Reason: No Insulin Coverage Levetiracetam (Levetiracetam 500 Mg Tablet) 500 mg PO BID [facility] Last Admin: 06/28/25 10:05 Dose: 500 mg Documented By: JOSSE Magnesium Hydroxide (Milk Of Magnesia 30 Ml Oral.Susp) 30 ml PO DAILY PRN PRN Reason: Constipation Melatonin (Melatonin 3 Mg Tablet) 6 mg PO BEDTIME PRN PRN Reason: Insomnia Methimazole (Methimazole 5 Mg Tablet) 2.5 mg PO MOWEFR [facility] Last Admin: 06/27/25 08:15 Dose: 2.5 mg Documented By: JOSE Methylprednisolone Sodium Succinate (Methylprednisolone Sod Succ 125 Mg/2 Ml Vial) 60 mg IVPUSH BID [facility] Last Admin: 06/28/25 10:09 Dose: 60 mg Documented By: JOSSE Metoprolol Succinate (Metoprolol Succinate Er 25 Mg Tab.Er.24h) 25 mg PO DAILY [facility]; Protocol Last Admin: 06/28/25 10:07 Dose: 25 mg Documented By: JOSSE Ondansetron HCl (Ondansetron Hcl 4 Mg/2 Ml Vial) 4 mg IVPUSH Q8H PRN PRN Reason: Nausea and Vomiting Oxybutynin Chloride (Oxybutynin Chloride Er 5 Mg Tab.Er.24) 5 mg PO DAILY [facility] Last Admin: 06/28/25 10:05 Dose: 5 mg Documented By: JOSSE Pregabalin (Pregabalin 150 Mg Capsule) 150 mg PO TID [facility] Last Admin: 06/28/25 10:20 Dose: 150 mg Documented By: JOSSE Sodium Chloride (0.9 % Sodium Chloride Flush 3 Ml Syringe) 3 ml IVFLUSH QSHIFT [facility] Last Admin: 06/28/25 10:16 Dose: 3 ml Documented By: JOSSE Tramadol HCl (Tramadol Hcl 50 Mg Tablet) 50 mg PO Q6H PRN PRN Reason: Pain, Moderate(Pain Scale 4-6) Trazodone HCl (Trazodone Hcl 100 Mg Tablet) 100 mg PO BEDTIME [facility] Last Admin: 06/27/25 20:44 Dose: 100 mg Documented By: JESSICA Vitamin D (Cholecalciferol (Vitamin D3) 25 Mcg Tablet) 25 mcg PO DAILY [facility] Last Admin: 06/28/25 10:08 Dose: 25 mcg Documented By: JOSSE Labs 06/28/25 06:32 06/28/25 06:32 Labs: Laboratory Results - last 24 hr 06/27/25 06/27/25 06/27/25 15:25 16:14 16:44 MCV MCH MCHC RDW Plt Count MPV Immature Gran % (Auto) Neut % (Auto) Lymph % (Auto) [place] % (Auto) Eos % (Auto) Baso % (Auto) Lymph # (Auto) [place] # (Auto) Eos # (Auto) Baso # (Auto) Abs Immat Gran (auto) Absolute Neuts (auto) Absolute Nucleated RBC Nucleated RBC % (auto) Hold Purple Top O2 Saturation 87.0 ABG pH at Pt Temp 7.42 ABG pCO2 at Pt Temp 52 H ABG pO2 at Pt Temp 63 L ABG HCO3 34 H ABG Base Excess (Actual) 8.3 Anion Gap Estim Creat Clear Calc Estimated GFR POC Glucose 80 80 Random Glucose Calcium 06/27/25 06/28/25 06/28/25 19:20 06:32 07:38 MCV 87.5 MCH 27.2 MCHC 31.1 RDW 17.1 H Plt Count 249 MPV 11.6 Immature Gran % (Auto) 0.6 H Neut % (Auto) 71.9 Lymph % (Auto) 19.5 L [place] % (Auto) 7.8 Eos % (Auto) 0.1 Baso % (Auto) 0.1 Lymph # (Auto) 1.4 [place] # (Auto) 0.6 Eos # (Auto) 0.0 Baso # (Auto) 0.0 Abs Immat Gran (auto) 0.04 H Absolute Neuts (auto) 5.1 Absolute Nucleated RBC 0.000 Nucleated RBC % (auto) 0.0 Hold Purple Top SEE NOTE O2 Saturation ABG pH at Pt Temp ABG pCO2 at Pt Temp ABG pO2 at Pt Temp ABG HCO3 ABG Base Excess (Actual) Anion Gap 11 L Estim Creat Clear Calc 28.0 Estimated GFR 33 POC Glucose 126 H 113 Random Glucose 113 Calcium 9.5 06/28/25 11:30 MCV MCH MCHC RDW Plt Count MPV Immature Gran % (Auto) Neut % (Auto) Lymph % (Auto) [place] % (Auto) Eos % (Auto) Baso % (Auto) Lymph # (Auto) [place] # (Auto) Eos # (Auto) Baso # (Auto) Abs Immat Gran (auto) Absolute Neuts (auto) Absolute Nucleated RBC Nucleated RBC % (auto) Hold Purple Top O2 Saturation ABG pH at Pt Temp ABG pCO2 at Pt Temp ABG pO2 at Pt Temp ABG HCO3 ABG Base Excess (Actual) Anion Gap Estim Creat Clear Calc Estimated GFR POC Glucose 124 H Random Glucose Calcium Microbiology Microbiology Results: Microbiology 06/25/25 23:11 Blood Culture - Preliminary Blood - Venous No growth after 48 hours. 06/25/25 21:53 Blood Culture - Preliminary Blood - Venous No growth after 48 hours. Assessment and Plan (1) Acute encephalopathy: Status: Acute Plan Patient is a 79-year-old female with a past medical history significant for COPD on 2 L at baseline, history CVA now bed-bound, diabetes, seizure disorder, chronic sacral decubitus wound, minimal verbal and nonambulatory who presented to the ED last night due to shortness of breath and fatigue. Patient was recently discharged on fter a complicated admission including intubation in the ICU. Acute metabolic encephalopathy - pt initially brought to the ED for episode of lethargy, initially suspected to be due to repeat aspiration pneumonia - pt had repeat episode of unresponsiveness and lethargy on afternoon of 06/27 - ABG reassuring; vitals stable; pt afebrile - likely secondary to breakthrough seizures; pt appeared postictal - received Keppra 1000 mg IVx1 - increase Keppra to 500 mg p.o. b.i.d. - neurology consult, EEG Question of acute on chronic respiratory failure with hypoxia and hypercapnia secondary to acute COPD exacerbation with possible aspiration pneumonia - pt initially admitted for concern for recurrent aspiration and aspiration pneumonia - however, pt has been satting 95% on home 2 L O2; CTA without evidence of aspiration pneumonia; no white count or fever - initially started on cefepime; will discontinue - episodes of unresponsiveness likely secondary to breakthrough seizures as above - [employer] eval from 06/24: puree, thin liquids, 1-1 feed, meds whole with puree - aspiration precautions Elevated BNP - NT pro BNP 2614.4 --> 1726.9, decreased without intervention - CTA neg for PE, but with small right and minimal left pleural effusions; eval limited for pulmonary edema - CXR without clear pulmonary edema - Pt received Lasix 40mg IV x1 - echo showing preserved LVEF of 56% but showing severe aortic valve stenosis, similar to prior acute hyperkalemia - potassium has been elevated since 12 for despite multiple doses of Lokelma - possibly secondary to breakthrough seizures - we will give additional Lokelma 10 g p.o. - Trend potassium CKD 3 - creatinine bumped up today to 1.5 to - we will give gentle IVF - follow creatinine Pulmonary nodule - CTA shows right upper lobe pulmonary nodules and subcentimeter lingual nodule with probable mediastinal lymphadenopathy; malignancy not excluded - follow up outpatient iron deficiency anemia - continue iron DM2 - glipizide - SSI prior CVA - clopidogrel + atorvastatin hyperthyroidism - methimazole neuropathy - pregabalin mood disorder - trazodone + fluoxetine wound care: Sacrum/coccyx deep tissue pressure injury present on admission : Off Load Pressure with Q2 hr turns and use of pillows - Cleanse with PH balance spray or wipes, pat dry. ?Apply thin layer of Triad to wound bed. Do not remove all of paste between applications as this may cause further skin damage.? Cover with foam dressing to aid in off loading and protection from friction. Change every other day and PRN. Bilateral heels: Elevate heels off of bed surface with pillows or boots. Float heels off of pillows. Apply skin prep allow to dry. Apply heel foam dressings, peel back and assess Q shift and change every 5-7 days and PRN. Med rec pending Full code VTE Prophylaxis: Heparin Pt requires continued hospitalization as she continues to have electrolyte abnormalities with hyperkalemia as well as had repeat episode of unresponsiveness concerning for breakthrough seizure. Will require continued cardiac and neurological monitoring as well as response to increasing Keppra. Quality Stroke Does the patient have a stroke diagnosis?: No VTE Prior VTE?: No VTE Risk Level:: Medical - moderate - high VTE Device Contraindication: Treatment Not Indicated VTE Drug Contraindication: N/A - Med Ordered
[2025-06-28 16:16] LABS: Glucose, Whole Blood 165 mg/dL (60-115)
[2025-06-28 20:40] LABS: Glucose, Whole Blood 170 mg/dL (60-115)
[2025-06-29] VITALS (9 sets, daily range): BP systolic 116–142; BP diastolic 54–65; PULSE 64–122; RESP 17–20; TEMP 36.6–37.1; O2SAT 93–95
[2025-06-29] MEDS: Albuterol/Iprat 2.5/0.5MG 3 ML AMPUL.NEB INHALE ×4 (07:19→19:26)
[2025-06-29 07:23] LABS: Glucose, Whole Blood 135 mg/dL (60-115)
[2025-06-29 08:25] LABS: Anion Gap 10 (12-20); Blood Urea Nitrogen 36 mg/dL (9-16); Calcium 9.0 mg/dL (8.4-10.2); Carbon Dioxide 29 mmol/L (22-29); Chloride 109 mmol/L (96-108); Creatinine Clr Calc Pharmacy 30.9; Estimated Glomerular Filt Rate 37; Potassium 5.2 mmol/L (3.3-5.1); Sodium 143 mmol/L (135-145)
[2025-06-29] MEDS: oxyBUTYnin chloride ER 5 MG TAB.ER.24 PO (09:16)
[2025-06-29] MEDS: 0.9 % Sodium Chloride Flush 3 ML SYRINGE IVFLUSH ×3 (09:30→20:57)
[2025-06-29] MEDS: Ferrous Sulfate 324 MG TABLET.DR PO (09:31)
[2025-06-29] MEDS: Metoprolol Succinate ER 25 MG TAB.ER.24H PO (09:31)
[2025-06-29 11:59] LABS: Glucose, Whole Blood 99 mg/dL (60-115)
--- NOTE | 2025-06-29 14:39 | PM.NEUROCN ---
History of Present Illness Data of Consult Service Date: 06/29/25 Primary Care Provider: Anali Walsh MD [facility] Reason for consult: Encephalopathy 79-year-old female with a past medical history significant for COPD on 2 L at baseline, history CVA now bed-bound, diabetes, seizure disorder, chronic sacral decubitus wound, minimal verbal and nonambulatory who presented to the ED due to shortness of breath and fatigue. to my interview, she was alert and awake but could not tell me what was happening and where she was. She was not in any distress. Review of Systems Review of Systems: Could not be done with a [facility] Past Medical History Medical History Congestive heart failure Non-insulin dependent type 2 diabetes mellitus Aortic stenosis Seizure Dementia Seizure COPD (chronic obstructive pulmonary disease) Peripheral neuropathy HLD (hyperlipidemia) CVA (cerebral vascular accident) Heart failure, unspecified Social History Social History Household Members: Unknown / Unable to assess Housing: Assisted Living Facility Housing Other:: long term Do you presently have visiting nurse or other home services: Yes Alcohol intake: former Comment: non ambulatory pt Patient Tobacco Use Status: Never used Tobacco Second Hand Smoke Exposure: No Currently Displaying Signs/Symptoms of Drug Intoxication Withdrawal: No Have you been hit, kicked, punched, or otherwise hurt by someone within the past year? If so, by whom?: No Do you feel safe in your current relationship?: No Current Relationship Is there a partner from a previous relationship who is making you feel unsafe now?: No Are you made to feel afraid or neglected: No Advance Directives: Yes Advance Directives on File: Yes Advance Directives Date on File: 09/15/23 Do you have a plan to hurt others: No Plan Nutrition Risks: On aspiration precautions Patient : No service: No Meds Allergies Allergy/AdvReac Type Severity Reaction Status Date / Time Penicillins Allergy Unknown Verified 06/25/25 21:34 piroxicam Allergy Unknown Verified 06/25/25 21:34 shrimp Allergy Hives Verified 06/25/25 21:34 Sulfa (Sulfonamide Allergy Unknown Verified 06/25/25 21:34 Antibiotics) Active Medications: Current Medications Acetaminophen (Acetaminophen 325 Mg Tablet) 650 mg PO Q6H PRN PRN Reason: Pain, Mild 1-3,fever,headache Albuterol/Ipratropium (Albuterol/Iprat 2.5/0.5mg 3 Ml Ampul.Neb) 3 ml INHALE RQ4H WHILE AWAKE [facility] Last Admin: 06/29/25 11:16 Dose: 3 ml Atorvastatin Calcium (Atorvastatin Calcium 80 Mg Tablet) 80 mg PO BEDTIME [facility] Last Admin: 06/28/25 20:49 Dose: 80 mg Calcium Carbonate (Calcium Carbonate 750 Mg Tab.Chew) 750 mg PO Q4H PRN PRN Reason: Heartburn Clopidogrel Bisulfate (Clopidogrel Bisulfate 75 Mg Tablet) 75 mg PO DAILY [facility] Last Admin: 06/29/25 09:30 Dose: 75 mg Cyanocobalamin (Cyanocobalamin (Vitamin B-12) 500 Mcg Tablet) 500 mcg PO DAILY [facility] Last Admin: 06/29/25 09:31 Dose: 500 mcg Dextrose (Dextrose 50 % 25 Gm/50 Ml Syringe) 25 gm IVPUSH Q15M PRN; Protocol PRN Reason: per Hypoglycemia Standing Ord. Docusate Sodium (Docusate Sodium 100 Mg Capsule) 100 mg PO BID [facility] Last Admin: 06/29/25 09:31 Dose: 100 mg Ferrous Sulfate (Ferrous Sulfate 324 Mg Tablet.Dr) 324 mg PO DAILY [facility] Last Admin: 06/29/25 09:31 Dose: 324 mg Fluoxetine HCl (Fluoxetine Hcl 20 Mg Capsule) 20 mg PO DAILY [facility] Last Admin: 06/29/25 09:15 Dose: 20 mg Folic Acid (Folic Acid 1 Mg Tablet) 0.5 mg PO DAILY [facility] Last Admin: 06/29/25 09:31 Dose: 0.5 mg Glipizide (Glipizide Xl 2.5 Mg Tab.Er.24) 2.5 mg PO DAILY [facility] Last Admin: 06/29/25 09:16 Dose: 2.5 mg Glucose (Glucose Gel 15 Gm Gel..Gram.) 15 gm PO Q15M PRN; Protocol PRN Reason: per Hypoglycemia Standing Ord. Heparin Sodium (Porcine) (Heparin Sodium,Porcine 5,000 Unit/Ml Vial) 5,000 unit SUBCUT Q12H [facility] Last Admin: 06/29/25 09:24 Dose: 5,000 unit Insulin Human Lispro (Insulin Lispro 100 Unit/Ml 3 Ml Vial) 0 unit SUBCUT QIDACHS [facility]; Protocol Last Admin: 06/29/25 09:29 Dose: Not Given Levetiracetam (Levetiracetam 500 Mg Tablet) 500 mg PO BID [facility] Last Admin: 06/29/25 09:16 Dose: 500 mg Magnesium Hydroxide (Milk Of Magnesia 30 Ml Oral.Susp) 30 ml PO DAILY PRN PRN Reason: Constipation Melatonin (Melatonin 3 Mg Tablet) 6 mg PO BEDTIME PRN PRN Reason: Insomnia Methimazole (Methimazole 5 Mg Tablet) 2.5 mg PO MOWEFR [facility] Last Admin: 06/27/25 08:15 Dose: 2.5 mg Methylprednisolone Sodium Succinate (Methylprednisolone Sod Succ 125 Mg/2 Ml Vial) 60 mg IVPUSH BID [facility] Last Admin: 06/29/25 09:24 Dose: 60 mg Metoprolol Succinate (Metoprolol Succinate Er 25 Mg Tab.Er.24h) 25 mg PO DAILY [facility]; Protocol Last Admin: 06/29/25 09:31 Dose: 25 mg Ondansetron HCl (Ondansetron Hcl 4 Mg/2 Ml Vial) 4 mg IVPUSH Q8H PRN PRN Reason: Nausea and Vomiting Oxybutynin Chloride (Oxybutynin Chloride Er 5 Mg Tab.Er.24) 5 mg PO DAILY [facility] Last Admin: 06/29/25 09:16 Dose: 5 mg Pregabalin (Pregabalin 150 Mg Capsule) 150 mg PO TID [facility] Last Admin: 06/29/25 09:32 Dose: 150 mg Sodium Chloride (0.9 % Sodium Chloride Flush 3 Ml Syringe) 3 ml IVFLUSH QSHIFT [facility] Last Admin: 06/29/25 09:30 Dose: 3 ml Tramadol HCl (Tramadol Hcl 50 Mg Tablet) 50 mg PO Q6H PRN PRN Reason: Pain, Moderate(Pain Scale 4-6) Trazodone HCl (Trazodone Hcl 100 Mg Tablet) 100 mg PO BEDTIME [facility] Last Admin: 06/28/25 20:50 Dose: Not Given Vitamin D (Cholecalciferol (Vitamin D3) 25 Mcg Tablet) 25 mcg PO DAILY [facility] Last Admin: 06/29/25 09:30 Dose: 25 mcg Home Medications ?Medication ?Instructions ?Recorded ?Confirmed ?Last Taken ?Type atorvastatin 80 mg tablet 80 mg PO BEDTIME 08/02/23 06/26/25 06/25/25 History cholecalciferol (vitamin D3) 25 25 mcg PO DAILY 08/02/23 06/26/25 06/25/25 History mcg (1,000 unit) tablet clopidogrel 75 mg tablet 75 mg PO DAILY 08/02/23 06/26/25 06/25/25 History cyanocobalamin (vitamin B-12) 500 500 mcg PO DAILY 08/02/23 06/26/25 06/25/25 History mcg tablet fluoxetine 20 mg capsule 20 mg PO DAILY 08/02/23 06/26/25 06/25/25 History folic acid 400 mcg tablet 0.4 mg PO DAILY 08/02/23 06/26/25 06/25/25 History metoprolol succinate 25 mg 25 mg PO DAILY 08/02/23 06/26/25 06/25/25 History tablet,extended release 24 hr oxybutynin chloride 5 mg 5 mg PO DAILY 08/02/23 06/26/25 06/25/25 History tablet,extended release 24 hr pregabalin 150 mg capsule 150 mg PO TID 08/02/23 06/26/25 06/25/25 History trazodone 100 mg tablet 100 mg PO BEDTIME 08/02/23 06/26/25 06/25/25 History zinc oxide 20 % topical ointment 1 appl topical DAILY PRN Wound 08/02/23 06/26/25 06/25/25 History Healing levetiracetam 250 mg tablet 250 mg PO BID 09/10/23 06/26/25 06/25/25 History (Keppra) albuterol sulfate 90 mcg/actuation 2 puff inhalation Q6H PRN wheezing 04/18/24 06/26/25 06/25/25 History aerosol inhaler (Ventolin HFA) methimazole 5 mg tablet 2.5 mg PO MOWEFR 04/18/24 06/26/25 06/25/25 History docusate sodium 100 mg capsule 100 mg PO BID 11/07/24 06/26/25 06/25/25 History ferrous sulfate 324 mg (65 mg 324 mg PO DAILY 06/17/25 06/26/25 06/25/25 History iron) tablet,delayed release Physical Exam Vital Signs: Vital Signs: Last Vital Signs Temp 97.9 F 06/29/25 11:31 Pulse 72 06/29/25 11:31 Resp 20 06/29/25 11:31 BP 120/58 L 06/29/25 11:31 Pulse Ox 94 06/29/25 11:31 O2 Del Method Nasal Cannula 06/29/25 11:31 O2 Flow Rate 1 06/29/25 11:31 Oxygen Flow Rate 2 06/25/25 21:23 BMI result Body Mass Index 34.3 Neuro: Other: Mental Status: she is alert and awake with normal spontaneity and fluency of speech. She has following commands. She did not know where she is and what his happening. Cranial Nerves: CN II: Visual price full to confrontation, visual acuity intact. CN III, IV, : Pupils equal, round, reactive to light and accommodation. Extraocular movements are normal. CN V: Facial sensation is normal. CN VII: Facial movements symmetrical. CN VIII: Hearing intact to bedside conversation is normal. CN IX, X: Palate elevates symmetrically. CN XI: Shoulder shrug and head turn symmetrical. CN XII: Tongue midline without atrophy or fasciculations. Motor: Mild left-sided weakness. Deep tendon reflexes are absent. Plantars were flexor. Extrapyramidal: Full facial expressions and blinking. No rigidity. Movements are appropriate with no tremor or abnormality. Speech: Normal; no dysarthria or tremor. Results Labs 06/28/25 06:32 06/29/25 07:41 Labs: BMP 06/29/25 07:41 Sodium 143 Potassium 5.2 H Chloride 109 H Carbon Dioxide 29 BUN 36 H Creatinine 1.38 Calcium 9.[address] [place] [address] [address] Scan Report Signed Patient: Rosi Hernández MR#: [id number] : 1945 Acct:[id number] Age/Sex: 79 / F ADM Date: 06/17/25 Loc: HO.ICU 259-[address]: Romaine Lazaro MD Ordering Physician: Karlene Pickett Date of Service: 06/17/25 Procedure(s): CT head/brain wo IV con Accession Number(s): [id number] cc: Karlene Pickett; ANALI WALSH MD~ Report Number: [id number]: Total DLP = 721.00 mGy-cm Reason for Exam: poorly responsive, hx CVA EXAMINATION: CT HEAD WITHOUT IV CONTRAST HISTORY: poorly responsive, hx CVA. TECHNIQUE: Unenhanced helical CT of the head was performed per standard departmental protocol. Coronal and sagittal reformats of the head were also evaluated. One or more of the following techniques was used for dose reduction: Automated exposure control, adjustment of the mA and/or kV according to patient size, use of iterative reconstruction technique. DLP: 717 mGy-cm COMPARISON: Comparison is made with the prior examination dated 11/07/2024. FINDINGS: BRAIN: There is diffuse prominence of the ventricular system and cortical sulci, consistent with atrophy. Periventricular and subcortical white matter hypodensities are noted which are nonspecific, but often seen in the setting of small vessel ischemic disease. There is an old infarct of the right basal ganglia. There is no mass effect or midline shift. No intra- or extra-axial fluid collections are identified. SINUSES: There is mucosal thickening in the left frontal sinus. The mastoid air cells and middle ear cavities are well pneumatized. ORBITS: The visualized orbits are unremarkable. BONES/SOFT TISSUES: The extracranial soft tissues are unremarkable. The calvarium is intact. No suspicious lytic or sclerotic lesions. CT/CT head/brain wo IV con IMPRESSION: No acute intracranial abnormality. Microbiology Microbiology Results: Microbiology 06/25/25 23:11 Blood - Venous Blood Culture - Preliminary No growth after 48 hours. 06/25/25 21:53 Blood - Venous Blood Culture - Preliminary No growth after 48 hours. Assessment and Plan (1) Acute encephalopathy: Status: Acute 79 years old woman with probably multifactorial encephalopathy. Her examination revealed and fusion and mild left hemiparesis. Her head CT revealed significant chronic microvascular ischemic changes especially in right frontal deep white matter area. It is difficult to say if there is any acute lesion. Other than ruling out metabolic toxic etiologies for change in mental status, my recommendation is to obtain an EEG. A noncontrast MRI of brain can also be considered to rule out stroke as she already has significant ischemic brain disease in his at risk for further similar lesions. In the meantime treatment is anti-platelet agent blood pressure control and statin. Procedures Date of Service Date of Service: 06/29/25
[2025-06-29 16:25] LABS: Glucose, Whole Blood 273 mg/dL (60-115)
--- NOTE | 2025-06-29 17:22 | P.PNIM_ITS ---
Subjective Subjective Date of Service: 06/29/25 Interval History: No acute events overnight No observed repeat episodes of lethargy, confusion, or possible seizure activity Pt is a limited historian, but does not appear to have any acute medical complaints Review of Systems Review of Systems: Yes all other systems are reviewed and are negative Physical Exam 2 Exam: Exam: General: Awake and alert, no acute distress. Resp: CTA bilaterally, though difficult to assess due to body habitus and limited mobility CVS: S1, S2, RRR GI: +BS, NT, no distention Skin: Warm, dry Neuro: Chronic left-sided hemiplegia. Limited mobility of right leg though capable of moving right upper extremity. Chronic slurred and limited/delayed speech from previous CVA Extremities: No edema Vital Signs: Vital Signs: Last Vital Signs Temp 98.7 F 06/29/25 16:00 Pulse 88 06/29/25 16:00 Resp 18 06/29/25 16:00 BP 142/65 H 06/29/25 16:00 Pulse Ox 94 06/29/25 16:00 O2 Del Method Nasal Cannula 06/29/25 16:00 O2 Flow Rate 2 06/29/25 16:00 Oxygen Flow Rate 2 06/25/25 21:23 BMI result Body Mass Index 34.3 Objective Data Active Medications Acetaminophen (Acetaminophen 325 Mg Tablet) 650 mg PO Q6H PRN PRN Reason: Pain, Mild 1-3,fever,headache Albuterol/Ipratropium (Albuterol/Iprat 2.5/0.5mg 3 Ml Ampul.Neb) 3 ml INHALE RQ4H WHILE AWAKE REPLACED BY [facility] Last Admin: 06/29/25 15:12 Dose: 3 ml Documented By: CINDY Atorvastatin Calcium (Atorvastatin Calcium 80 Mg Tablet) 80 mg PO BEDTIME REPLACED BY [facility] Last Admin: 06/28/25 20:49 Dose: 80 mg Documented By: JESSICA Calcium Carbonate (Calcium Carbonate 750 Mg Tab.Chew) 750 mg PO Q4H PRN PRN Reason: Heartburn Clopidogrel Bisulfate (Clopidogrel Bisulfate 75 Mg Tablet) 75 mg PO DAILY REPLACED BY [facility] Last Admin: 06/29/25 09:30 Dose: 75 mg Documented By: JOSSE Cyanocobalamin (Cyanocobalamin (Vitamin B-12) 500 Mcg Tablet) 500 mcg PO DAILY REPLACED BY [facility] Last Admin: 06/29/25 09:31 Dose: 500 mcg Documented By: JOSSE Dextrose (Dextrose 50 % 25 Gm/50 Ml Syringe) 25 gm IVPUSH Q15M PRN; Protocol PRN Reason: per Hypoglycemia Standing Ord. Docusate Sodium (Docusate Sodium 100 Mg Capsule) 100 mg PO BID REPLACED BY [facility] Last Admin: 06/29/25 09:31 Dose: 100 mg Documented By: JOSSE Ferrous Sulfate (Ferrous Sulfate 324 Mg Tablet.Dr) 324 mg PO DAILY REPLACED BY [facility] Last Admin: 06/29/25 09:31 Dose: 324 mg Documented By: JOSSE Fluoxetine HCl (Fluoxetine Hcl 20 Mg Capsule) 20 mg PO DAILY REPLACED BY [facility] Last Admin: 06/29/25 09:15 Dose: 20 mg Documented By: JOSSE Folic Acid (Folic Acid 1 Mg Tablet) 0.5 mg PO DAILY REPLACED BY [facility] Last Admin: 06/29/25 09:31 Dose: 0.5 mg Documented By: JOSSE Glipizide (Glipizide Xl 2.5 Mg Tab.Er.24) 2.5 mg PO DAILY REPLACED BY [facility] Last Admin: 06/29/25 09:16 Dose: 2.5 mg Documented By: JOSSE Glucose (Glucose Gel 15 Gm Gel..Gram.) 15 gm PO Q15M PRN; Protocol PRN Reason: per Hypoglycemia Standing Ord. Heparin Sodium (Porcine) (Heparin Sodium,Porcine 5,000 Unit/Ml Vial) 5,000 unit SUBCUT Q12H REPLACED BY [facility] Last Admin: 06/29/25 09:24 Dose: 5,000 unit Documented By: JOSSE Insulin Human Lispro (Insulin Lispro 100 Unit/Ml 3 Ml Vial) 0 unit SUBCUT QIDACHS REPLACED BY [facility]; Protocol Last Admin: 06/29/25 16:45 Dose: 6 unit Documented By: JOSSE Levetiracetam (Levetiracetam 500 Mg Tablet) 500 mg PO BID REPLACED BY [facility] Last Admin: 06/29/25 09:16 Dose: 500 mg Documented By: JOSSE Magnesium Hydroxide (Milk Of Magnesia 30 Ml Oral.Susp) 30 ml PO DAILY PRN PRN Reason: Constipation Melatonin (Melatonin 3 Mg Tablet) 6 mg PO BEDTIME PRN PRN Reason: Insomnia Methimazole (Methimazole 5 Mg Tablet) 2.5 mg PO MOWEFR REPLACED BY [facility] Last Admin: 06/27/25 08:15 Dose: 2.5 mg Documented By: JOSE Methylprednisolone Sodium Succinate (Methylprednisolone Sod Succ 125 Mg/2 Ml Vial) 60 mg IVPUSH BID REPLACED BY [facility] Last Admin: 06/29/25 09:24 Dose: 60 mg Documented By: JOSSE Metoprolol Succinate (Metoprolol Succinate Er 25 Mg Tab.Er.24h) 25 mg PO DAILY REPLACED BY [facility]; Protocol Last Admin: 06/29/25 09:31 Dose: 25 mg Documented By: JOSSE Ondansetron HCl (Ondansetron Hcl 4 Mg/2 Ml Vial) 4 mg IVPUSH Q8H PRN PRN Reason: Nausea and Vomiting Oxybutynin Chloride (Oxybutynin Chloride Er 5 Mg Tab.Er.24) 5 mg PO DAILY REPLACED BY [facility] Last Admin: 06/29/25 09:16 Dose: 5 mg Documented By: JOSSE Pregabalin (Pregabalin 150 Mg Capsule) 150 mg PO TID REPLACED BY [facility] Last Admin: 06/29/25 16:44 Dose: 150 mg Documented By: JOSSE Sodium Chloride (0.9 % Sodium Chloride Flush 3 Ml Syringe) 3 ml IVFLUSH QSHIFT REPLACED BY [facility] Last Admin: 06/29/25 16:44 Dose: 3 ml Documented By: JOSSE Tramadol HCl (Tramadol Hcl 50 Mg Tablet) 50 mg PO Q6H PRN PRN Reason: Pain, Moderate(Pain Scale 4-6) Trazodone HCl (Trazodone Hcl 100 Mg Tablet) 100 mg PO BEDTIME REPLACED BY [facility] Last Admin: 06/28/25 20:50 Dose: Not Given Documented By: JESSICA Non-Admin Reason: Patient Condition Contraindication Vitamin D (Cholecalciferol (Vitamin D3) 25 Mcg Tablet) 25 mcg PO DAILY REPLACED BY [facility] Last Admin: 06/29/25 09:30 Dose: 25 mcg Documented By: JOSSE Labs 06/28/25 06:32 06/29/25 07:41 Labs: Laboratory Results - last 24 hr 06/28/25 06/29/25 06/29/25 20:16 07:04 07:41 Hold Purple Top SEE NOTE Anion Gap 10 L Estim Creat Clear Calc 30.9 Estimated GFR 37 POC Glucose 170 H 135 H Random Glucose 125 H Calcium 9.0 06/29/25 06/29/25 11:39 16:20 Hold Purple Top Anion Gap Estim Creat Clear Calc Estimated GFR POC Glucose 99 273 H Random Glucose Calcium Assessment and Plan (1) Acute encephalopathy: Status: Acute Plan Patient is a 79-year-old female with a past medical history significant for COPD on 2 L at baseline, history CVA now bed-bound, diabetes, seizure disorder, chronic sacral decubitus wound, minimal verbal and nonambulatory who presented to the ED last night due to shortness of breath and fatigue. Patient was recently discharged on fter a complicated admission including intubation in the ICU. Acute metabolic encephalopathy - pt initially brought to the ED for episode of lethargy, initially suspected to be due to repeat aspiration pneumonia - pt had repeat episode of unresponsiveness and lethargy on afternoon of 06/27 - ABG reassuring; vitals stable; pt afebrile - likely secondary to breakthrough seizures; pt appeared postictal - received Keppra 1000 mg IVx1 - increase Keppra to 500 mg p.o. b.i.d. 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: puree, thin liquids, 1-1 feed, meds whole with puree - aspiration precautions Elevated BNP - NT pro BNP 2614.4 --> 1726.9, decreased without intervention - CTA neg for PE, but with small right and minimal left pleural effusions; eval limited for pulmonary edema - CXR without clear pulmonary edema - Pt received Lasix 40mg IV x1 - echo showing preserved LVEF of 56% but showing severe aortic valve stenosis, similar to prior acute hyperkalemia - potassium has been elevated since 06/26 despite multiple doses of Lokelma - possibly secondary to breakthrough seizures - we will give additional Lokelma 10 g p.o. - Trend potassium CKD 3 - creatinine bumped up today to 1.5 to - we will give gentle IVF - follow creatinine Pulmonary nodule - CTA shows right upper lobe pulmonary nodules and subcentimeter lingual nodule with probable mediastinal lymphadenopathy; malignancy not excluded - follow up outpatient iron deficiency anemia - continue iron DM2 - glipizide - SSI prior CVA - clopidogrel + atorvastatin hyperthyroidism - methimazole neuropathy - pregabalin mood disorder - trazodone + fluoxetine wound care: Sacrum/coccyx deep tissue pressure injury present on admission : Off Load Pressure with Q2 hr turns and use of pillows - Cleanse with PH balance spray or wipes, pat dry. ?Apply thin layer of Triad to wound bed. Do not remove all of paste between applications as this may cause further skin damage.? Cover with foam dressing to aid in off loading and protection from friction. Change every other day and PRN. Bilateral heels: Elevate heels off of bed surface with pillows or boots. Float heels off of pillows. Apply skin prep allow to dry. Apply heel foam dressings, peel back and assess Q shift and change every 5-7 days and PRN. Med rec pending Full code VTE Prophylaxis: Heparin Pt requires continued hospitalization as she continues to have electrolyte abnormalities with hyperkalemia as well as had repeat episode of unresponsiveness concerning for breakthrough seizure. Will require continued cardiac and neurological monitoring as well as response to increasing Keppra. Pt has been seen and evaluated by Neurology and will require additional workup with an EEG tomorrow. Quality Stroke Does the patient have a stroke diagnosis?: No VTE Prior VTE?: No VTE Risk Level:: Medical - moderate - high VTE Device Contraindication: Treatment Not Indicated VTE Drug Contraindication: N/A - Med Ordered
[2025-06-29 20:33] LABS: Glucose, Whole Blood 187 mg/dL (60-115)
[2025-06-30] VITALS (11 sets, daily range): BP systolic 102–134; BP diastolic 52–63; PULSE 60–78; RESP 16–20; TEMP 36.1–37.1; O2SAT 93–100
[2025-06-30 07:10] LABS: Glucose, Whole Blood 100 mg/dL (60-115)
--- NOTE | 2025-06-30 07:25 | P.PNIM_ITS ---
Subjective Subjective Date of Service: 06/30/25 Interval History: EEG MRI to be done today Spoke to the healthcare proxy Continues to have right facial droop Diet changed Review of Systems Review of Systems: Yes all other systems are reviewed and are negative Physical Exam 2 Exam: Exam: General: Awake and alert, no acute distress. Resp: CTA bilaterally, though difficult to assess due to body habitus and limited mobility CVS: S1, S2, RRR GI: +BS, NT, no distention Skin: Warm, dry Neuro: Chronic left-sided hemiplegia. Limited mobility of right leg though capable of moving right upper extremity. Chronic slurred and limited/delayed speech from previous CVA Extremities: No edema Vital Signs: Vital Signs: Last Vital Signs Temp 98.0 F 06/30/25 03:32 Pulse 65 06/30/25 03:32 Resp 18 06/30/25 03:32 BP 116/56 L 06/30/25 03:32 Pulse Ox 96 06/30/25 03:32 O2 Del Method Nasal Cannula 06/30/25 03:32 O2 Flow Rate 2 06/30/25 03:32 Oxygen Flow Rate 2 06/25/25 21:23 BMI result Body Mass Index 34.3 Objective Data Active Medications Acetaminophen (Acetaminophen 325 Mg Tablet) 650 mg PO Q6H PRN PRN Reason: Pain, Mild 1-3,fever,headache Albuterol/Ipratropium (Albuterol/Iprat 2.5/0.5mg 3 Ml Ampul.Neb) 3 ml INHALE RQ4H WHILE AWAKE [facility] Last Admin: 06/29/25 19:26 Dose: 3 ml Documented By: NERIS Atorvastatin Calcium (Atorvastatin Calcium 80 Mg Tablet) 80 mg PO BEDTIME [facility] Last Admin: 06/29/25 20:53 Dose: 80 mg Documented By: ANAISIANUP Calcium Carbonate (Calcium Carbonate 750 Mg Tab.Chew) 750 mg PO Q4H PRN PRN Reason: Heartburn Clopidogrel Bisulfate (Clopidogrel Bisulfate 75 Mg Tablet) 75 mg PO DAILY [facility] Last Admin: 06/29/25 09:30 Dose: 75 mg Documented By: JOSSE Cyanocobalamin (Cyanocobalamin (Vitamin B-12) 500 Mcg Tablet) 500 mcg PO DAILY [facility] Last Admin: 06/29/25 09:31 Dose: 500 mcg Documented By: JOSSE Dextrose (Dextrose 50 % 25 Gm/50 Ml Syringe) 25 gm IVPUSH Q15M PRN; Protocol PRN Reason: per Hypoglycemia Standing Ord. Docusate Sodium (Docusate Sodium 100 Mg Capsule) 100 mg PO BID [facility] Last Admin: 06/29/25 20:53 Dose: 100 mg Documented By: IZZY Ferrous Sulfate (Ferrous Sulfate 324 Mg Tablet.Dr) 324 mg PO DAILY [facility] Last Admin: 06/29/25 09:31 Dose: 324 mg Documented By: JOSSE Fluoxetine HCl (Fluoxetine Hcl 20 Mg Capsule) 20 mg PO DAILY [facility] Last Admin: 06/29/25 09:15 Dose: 20 mg Documented By: JOSSE Folic Acid (Folic Acid 1 Mg Tablet) 0.5 mg PO DAILY [facility] Last Admin: 06/29/25 09:31 Dose: 0.5 mg Documented By: JOSSE Glipizide (Glipizide Xl 2.5 Mg Tab.Er.24) 2.5 mg PO DAILY [facility] Last Admin: 06/29/25 09:16 Dose: 2.5 mg Documented By: JOSSE Glucose (Glucose Gel 15 Gm Gel..Gram.) 15 gm PO Q15M PRN; Protocol PRN Reason: per Hypoglycemia Standing Ord. Heparin Sodium (Porcine) (Heparin Sodium,Porcine 5,000 Unit/Ml Vial) 5,000 unit SUBCUT Q12H [facility] Last Admin: 06/29/25 20:53 Dose: 5,000 unit Documented By: IZZY Insulin Human Lispro (Insulin Lispro 100 Unit/Ml 3 Ml Vial) 0 unit SUBCUT QIDACHS [facility]; Protocol Last Admin: 06/30/25 07:15 Dose: Not Given Documented By: DOROTHEA Non-Admin Reason: No Insulin Coverage Levetiracetam (Levetiracetam 500 Mg Tablet) 500 mg PO BID [facility] Last Admin: 06/29/25 20:53 Dose: 500 mg Documented By: IZZY Magnesium Hydroxide (Milk Of Magnesia 30 Ml Oral.Susp) 30 ml PO DAILY PRN PRN Reason: Constipation Melatonin (Melatonin 3 Mg Tablet) 6 mg PO BEDTIME PRN PRN Reason: Insomnia Methimazole (Methimazole 5 Mg Tablet) 2.5 mg PO MOWEFR [facility] Last Admin: 06/27/25 08:15 Dose: 2.5 mg Documented By: JOSE Metoprolol Succinate (Metoprolol Succinate Er 25 Mg Tab.Er.24h) 25 mg PO DAILY [facility]; Protocol Last Admin: 06/29/25 09:31 Dose: 25 mg Documented By: JOSSE Ondansetron HCl (Ondansetron Hcl 4 Mg/2 Ml Vial) 4 mg IVPUSH Q8H PRN PRN Reason: Nausea and Vomiting Oxybutynin Chloride (Oxybutynin Chloride Er 5 Mg Tab.Er.24) 5 mg PO DAILY [facility] Last Admin: 06/29/25 09:16 Dose: 5 mg Documented By: JOSSE Pregabalin (Pregabalin 150 Mg Capsule) 150 mg PO TID [facility] Last Admin: 06/29/25 20:53 Dose: 150 mg Documented By: IZZY Sodium Chloride (0.9 % Sodium Chloride Flush 3 Ml Syringe) 3 ml IVFLUSH QSHIFT [facility] Last Admin: 06/29/25 20:57 Dose: 3 ml Documented By: IZZY Tramadol HCl (Tramadol Hcl 50 Mg Tablet) 50 mg PO Q6H PRN PRN Reason: Pain, Moderate(Pain Scale 4-6) Trazodone HCl (Trazodone Hcl 100 Mg Tablet) 100 mg PO BEDTIME [facility] Last Admin: 06/29/25 20:53 Dose: 100 mg Documented By: IZZY Vitamin D (Cholecalciferol (Vitamin D3) 25 Mcg Tablet) 25 mcg PO DAILY [facility] Last Admin: 06/29/25 09:30 Dose: 25 mcg Documented By: JOSSE Labs 06/28/25 06:32 06/29/25 07:41 Labs: Laboratory Results - last 24 hr 06/29/25 06/29/25 06/29/25 07:41 11:39 16:20 Hold Purple Top SEE NOTE Anion Gap 10 L Estim Creat Clear Calc 30.9 Estimated GFR 37 POC Glucose 99 273 H Random Glucose 125 H Calcium 9.0 06/29/25 06/30/25 20:29 07:02 Hold Purple Top Anion Gap Estim Creat Clear Calc Estimated GFR POC Glucose 187 H 100 Random Glucose Calcium Assessment and Plan (1) Acute encephalopathy: Status: Acute Plan Patient is a 79-year-old female with a past medical history significant for COPD on 2 L at baseline, history CVA now bed-bound, diabetes, seizure disorder, chronic sacral decubitus wound, minimal verbal and nonambulatory who presented to the ED last night due to shortness of breath and fatigue. Patient was recently discharged on fter a complicated admission including intubation in the ICU. Acute metabolic encephalopathy Acute on chronic worsening of baseline medical issues-seizure versus another stroke Stroke imaging done on 06/27/2025 unremarkable, awaiting EEG and MRI Neurology consulted Initiated on Keppra 500 p.o. b.i.d. Question of acute on chronic respiratory failure with hypoxia and hypercapnia secondary to acute COPD exacerbation with possible aspiration pneumonia Guarded prognosis with repeated aspiration-goals of care conversation held with her care proxy ,we will continue to engage - pt initially admitted for concern for recurrent aspiration and aspiration pneumonia - however, pt has been satting 95% on home 2 L O2; CTA without evidence of aspiration pneumonia; no white count or fever - initially started on cefepime; has been discontinued - episodes of unresponsiveness likely secondary to breakthrough seizures as above - [employer] eval from 06/30: puree, thin liquids, 1-1 feed, meds whole with puree - aspiration precautions Elevated BNP - NT pro BNP 2614.4 --> 1726.9, decreased without intervention - CTA neg for PE, but with small right and minimal left pleural effusions; eval limited for pulmonary edema - CXR without clear pulmonary edema - Pt received Lasix 40mg IV x1 - echo showing preserved LVEF of 56% but showing severe aortic valve stenosis, similar to prior acute hyperkalemia -Likely KIRAN on CKD -We will initiate low K diet -Daily BMP KIRAN on CKD 3 -Likely prerenal , resolving -Daily BMP Pulmonary nodule - CTA shows right upper lobe pulmonary nodules and subcentimeter lingual nodule with probable mediastinal lymphadenopathy; malignancy not excluded - follow up outpatient iron deficiency anemia - continue iron DM2 - glipizide - SSI prior CVA - clopidogrel + atorvastatin hyperthyroidism - methimazole neuropathy - pregabalin mood disorder - trazodone + fluoxetine wound care: Sacrum/coccyx deep tissue pressure injury present on admission : Off Load Pressure with Q2 hr turns and use of pillows - Cleanse with PH balance spray or wipes, pat dry. ?Apply thin layer of Triad to wound bed. Do not remove all of paste between applications as this may cause further skin damage.? Cover with foam dressing to aid in off loading and protection from friction. Change every other day and PRN. Bilateral heels: Elevate heels off of bed surface with pillows or boots. Float heels off of pillows. Apply skin prep allow to dry. Apply heel foam dressings, peel back and assess Q shift and change every 5-7 days and PRN. Med rec pending Full code VTE Prophylaxis: Heparin Goals of care conversation held with the healthcare proxy-, we will re- approached in the a.m. again given guarded prognosis Pt requires continued hospitalization as she continues to have electrolyte abnormalities with hyperkalemia as well as had repeat episode of unresponsiveness concerning for breakthrough seizure. Will require continued cardiac and neurological monitoring as well as response to increasing Keppra. Pt has been seen and evaluated by Neurology and will require additional workup with an EEG and MRI today. Quality Stroke Does the patient have a stroke diagnosis?: No VTE Prior VTE?: No VTE Risk Level:: Medical - moderate - high VTE Device Contraindication: Treatment Not Indicated VTE Drug Contraindication: N/A - Med Ordered
[2025-06-30] MEDS: Albuterol/Iprat 2.5/0.5MG 3 ML AMPUL.NEB INHALE ×4 (08:51→19:44)
[2025-06-30] MEDS: Metoprolol Succinate ER 25 MG TAB.ER.24H PO (09:11)
[2025-06-30] MEDS: Ferrous Sulfate 324 MG TABLET.DR PO (09:11)
[2025-06-30] MEDS: oxyBUTYnin chloride ER 5 MG TAB.ER.24 PO (09:12)
--- NOTE | 2025-06-30 10:05 | MHC.CLN ---
F/U PT WITH INCREASED NUTRITION RISK R/T PRESSURE INJURY PO ITNAKE VARIABLE RANGING FROM 25-100% WITH 1 MEAL REFUSAL DIET RX: 2000DM PUREED RECEIVING ENSURE MAX BID TO PROMOTE WOUND HEALING SUPP PROVIDES 300KCALS, 60G PROTEIN MONITOR PO INTAKE AND ENCOURAGE SUPPLEMENTS
--- NOTE | 2025-06-30 11:10 | MHC.CM.PN ---
Per ROUNDS, Patient is not yet medically cleared for dc (continued electrolyte abnormalities).
[2025-06-30 11:15] LABS: Glucose, Whole Blood 130 mg/dL (60-115)
--- NOTE | 2025-06-30 15:41 | MHC.SL.SWA ---
Addendum entered and electronically signed by Floers Kibry MS, CCC-CLAIMS ACCOUNT SPECIALIST 06/30/25 15:54: Pt prognosis for safe and efficient resumption of PO is poor, given pt's aspiration risk factors, history of multiple hospitalizations, compromised respiratory status and global weakness. MD consulted. Original Note: Speech Pathologist Impression: Mild to moderate oropharyngeal dysphagia (baseline) Risk of Aspiration Due to: Hx of dysphagia Hx of aspiration PNA Bedbound d/t Weakness and deconditioning Recent hx of extubation Dysphasia Diet Status: Recommend THIN liquids (via controlled self-administered cup sip, STRAWS OK). Continue w/PUREE solids and meds CRUSHED or WHOLE in PUREE. Continue 1-1 assist, encourage pt to feed herself. CLAIMS ACCOUNT SPECIALIST continues to follow to monitor tolerance of diet and adjust as needed. Liquid Consistency and Strategies for Safe Swallow: Liquid Intake Recommendation: Thin Liquid Intake Strategies: Solid Food Consistency: Dietary Recommendations: Pureed (NDD1) Additional Modifications to Solid Foods: Patient will need 1-1 assist to set-up tray Oral Medication Intake: Whole with Puree Please contact the pharmacy regarding appropriate crushable or liquid drug formulations that are available whenever modified delivery is recommended. Compensatory Strategies and Precautions to be Taken for Safe Swallow: Supervision While Eating and Drinking for Safe Swallow: Total Assistance (1:1) Foods to Avoid: too large pieces of food, mixed consistencies, difficult to chew solids. Swallowing Recommended Treatments: Recommendation for Speech: Inpatient Speech Therapy Comment: Pt presents with weak oropharyngeal coordination but no overt s/s of aspiration with thins by straw sips and purees by tsp. Pt is able to feed herself with assist in setup when she is alert and awake. Pt at baseline for PO tolerance, recc diet as ordered, CLAIMS ACCOUNT SPECIALIST to follow. Frequency/Duration: Daily M-F Date Range for Service Req: Timeline to reassess: Entry Writer Clinican/Clinical Fellow: No Supervisory Statement: I have reviewed and agree with the student/clinical fellow's documentation: N/A Speech Language Pathologist: Flores Kirby M.S., CCC-CLAIMS ACCOUNT SPECIALIST
[2025-06-30 16:09] LABS: Glucose, Whole Blood 92 mg/dL (60-115)
[2025-06-30 19:42] LABS: Hematocrit 30.1 % (37.0-47.0); Hemoglobin 9.4 g/dl (12.0-16.0); Mean Corpuscular HGB Conc 31.2 g/dl (31.0-35.0); Mean Corpuscular Hemoglobin 27.1 pg (27.0-33.0); Mean Corpuscular Volume 86.7 fL (80.0-98.0); NRBC Abs Auto 0.000 X10*3/uL (0.0-0.012); NRBC Pct Auto 0.0 /100WBC (0.0-0.2); PLT CLUMP 1; Red Blood Count 3.47 X10*6/uL (4.20-5.50)
[2025-06-30 19:45] LABS: White Blood Count 11.1 X10*3/uL (4.8-10.8)
[2025-06-30 19:56] LABS: Anion Gap 14 (12-20); Blood Urea Nitrogen 45 mg/dL (9-16); Calcium 9.1 mg/dL (8.4-10.2); Carbon Dioxide 27 mmol/L (22-29); Chloride 108 mmol/L (96-108); Creatinine Clr Calc Pharmacy 35.8; Estimated Glomerular Filt Rate 44; Potassium 5.6 mmol/L (3.3-5.1); Sodium 143 mmol/L (135-145)
[2025-06-30 20:41] LABS: Glucose, Whole Blood 92 mg/dL (60-115)
[2025-06-30 21:12] LABS: Platelet Count 239 X10*3/uL (160-400)
[2025-07-01] MEDS: 0.9 % Sodium Chloride Flush 3 ML SYRINGE IVFLUSH ×2 (00:48→09:18)
[2025-07-01 03:01] VITALS: BP 135/60; PULSE 60; RESP 18; TEMP 36.3; O2SAT 92
[2025-07-01 07:16] LABS: Glucose, Whole Blood 103 mg/dL (60-115)
[2025-07-01 07:18] VITALS: BP 135/64; PULSE 70; RESP 18; TEMP 37; O2SAT 94
[2025-07-01 07:57] LABS: MANUAL DIFF FLAG NO
[2025-07-01 08:04] LABS: Hematocrit 29.6 % (37.0-47.0); Hemoglobin 9.2 g/dl (12.0-16.0); Imm Gran Abs Auto 0.09 X10*3/uL (0.00-0.03); Imm Gran Pct Auto 0.9 % (0.0-0.4); Lymphocytes Absolute Auto 2.0 X10*3/uL (1.2-4.9); Mean Corpuscular HGB Conc 31.1 g/dl (31.0-35.0); Mean Corpuscular Hemoglobin 27.7 pg (27.0-33.0); Mean Corpuscular Volume 89.2 fL (80.0-98.0); NRBC Abs Auto 0.000 X10*3/uL (0.0-0.012); NRBC Pct Auto 0.0 /100WBC (0.0-0.2); Platelet Count 240 X10*3/uL (160-400); Red Blood Count 3.32 X10*6/uL (4.20-5.50); White Blood Count 10.0 X10*3/uL (4.8-10.8)
[2025-07-01 08:22] LABS: Alanine Aminotransferase 11 U/L (0-31); Albumin Level 3.1 g/dL (3.5-5.0); Alkaline Phosphatase 44 U/L (39-117); Anion Gap 11 (12-20); Aspartate Amino Transferase 21 U/L (5-31); Blood Urea Nitrogen 41 mg/dL (9-16); Calcium 9.7 mg/dL (8.4-10.2); Carbon Dioxide 30 mmol/L (22-29); Chloride 109 mmol/L (96-108); Creatinine Clr Calc Pharmacy 38.3; Estimated Glomerular Filt Rate 47; Magnesium 1.8 mg/dL (1.6-2.6); Potassium 4.8 mmol/L (3.3-5.1); Sodium 145 mmol/L (135-145); Total Protein 5.9 g/dL (6.5-8.0)
[2025-07-01] MEDS: Albuterol/Iprat 2.5/0.5MG 3 ML AMPUL.NEB INHALE ×2 (08:50→11:23)
[2025-07-01 08:57] VITALS: PULSE 84; RESP 16; O2SAT 97
[2025-07-01] MEDS: oxyBUTYnin chloride ER 5 MG TAB.ER.24 PO (09:17)
[2025-07-01] MEDS: Ferrous Sulfate 324 MG TABLET.DR PO (09:18)
[2025-07-01] MEDS: Metoprolol Succinate ER 25 MG TAB.ER.24H PO (09:18)
[2025-07-01 11:10] LABS: Glucose, Whole Blood 119 mg/dL (60-115)
[2025-07-01 11:24] VITALS: BP 135/61; PULSE 62; RESP 18; TEMP 36.8; O2SAT 96
[2025-07-01 11:27] VITALS: PULSE 66; RESP 16; O2SAT 96
--- NOTE | 2025-07-01 14:28 | MHC.CM.PN ---
Per 's request, CM spoke with HCP/Friend/Mariely @ [phone] regarding dc planning. Per Mariely, she spoke with Patient today and found her to be at her normal baseline. Per Mariely, Patient confirmed with her today that she wants everything done, and to remain a Full Code.Per Mariely, Patient and she do not want to consider SNF placement; Patient has 24/7 care at home and [facility]. JESSE has relayed this information to .
--- NOTE | 2025-07-01 14:53 | MHC.CM.PN ---
Addendum entered by Any Jaramillo 07/01/25 15:00: HVYOGESH has been notified of today's dc. Original Note: Per MD, Patient is medically cleared for dc to home today. JESSE spoke with Friend/invoked HCP/Mariely @ [phone] and addressed IMM with her. Patient will return home today at 6PM, via [facility]; Mariely confirmed that she will be at Patient's home waiting for her arrival and that she would make arrangements for her 13/02 care to resume today.
[2025-07-01 15:14] VITALS: BP 132/63; PULSE 62; RESP 18; TEMP 36.7; O2SAT 98
--- NOTE | 2025-07-01 15:30 | PM.DS ---
DS: Providers Provider Date of Service: 07/01/25 Date of admission: 06/26/25 04:20 Date of discharge: 07/01/25 Primary care physician: Cliff Walsh MD Consults: 06/26/25 08:40 Consult to Wound Care [place]ine [place] [facility] [place] Reason for consultation: sacral pressure ulcer 06/27/25 16:50 Consult to Neurology Routine Consulting Provider: [facility] Reason for consultation: Episodes of unresponsiveness, ?breakthrough seizures 06/29/25 07:51 Consult to Neurology Routine Consulting Provider: [facility] Reason for consultation: Episodes of unresponsiveness, ?breakthrough seizures DS: Diagnosis Discharge Diagnosis (1) Acute encephalopathy: Status: Acute DS: Summary Hospital Course Hospital Course: H&P: Chief Complaint: SOB Patient is a 79-year-old female with a past medical history significant for COPD on 2 L at baseline, history CVA now bed-bound, diabetes, seizure disorder, chronic sacral decubitus wound, minimal verbal and nonambulatory who presented to the ED last night due to shortness of breath and fatigue. Patient was recently discharged on to after a complicated admission including intubation and ICU. Initially her recent stay was due to kidney stones however that she aspirated requiring intubation and was extubated 3 days later on 06/20. She developed septic shock secondary to UTI, sent home on cefuroxime. Last night the patient developed a wet cough and her O2 saturation was low therefore when nursing facility called EMS for the patient to be transferred back to the hospital. She received a DuoNeb EN route with improvement. Hospital course: The patient is a 79-year-old female with a history of COPD on home oxygen, prior CVA with resultant bed-bound status, diabetes, seizure disorder, chronic sacral decubitus ulcer, and minimal verbal and nonambulatory baseline, who presented with shortness of breath and fatigue shortly after a recent complicated admission that included ICU stay and intubation. On admission, she was found to have acute metabolic encephalopathy, representing an acute on chronic worsening of her baseline neurological status, with differential including seizure versus another stroke. Stroke imaging was unremarkable, and neurology was consulted; she was started on levetiracetam (Keppra) 500 mg PO BID for suspected breakthrough seizures, and further workup with EEG and MRI was arranged. There was concern for acute on chronic respiratory failure due to COPD exacerbation and possible aspiration pneumonia, but the patient maintained oxygen saturation at 95% on her baseline 2 L O2, and CTA showed no evidence of aspiration pneumonia, with no leukocytosis or fever. Cefepime, started initially, was discontinued. BARBERING INSTRUCTOR evaluation recommended a puree diet with thin liquids, 1:1 feeding, and medications given whole with puree, and aspiration precautions were implemented. The patient had an elevated NT-proBNP that decreased without intervention, and imaging revealed small pleural effusions but no clear pulmonary edema; she received a single dose of IV furosemide. Echocardiogram showed severe aortic stenosis with preserved ejection fraction. She developed acute hyperkalemia, likely due to KIRAN on CKD, which is resolving; she was started on a low potassium diet and is being monitored with daily BMPs. CTA also revealed right upper lobe pulmonary nodules and mediastinal lymphadenopathy, for which outpatient follow-up is planned. Her chronic conditions, including iron deficiency anemia, diabetes, prior CVA, hyperthyroidism, neuropathy, and mood disorder, were managed with her home medications. Wound care for her sacral and heel pressure injuries included offloading, specialized dressings, and regular assessment. The patient remains full code and received VTE prophylaxis with heparin. Goals of care discussions were held with her healthcare proxy given her guarded prognosis, and these will continue as needed. At discharge, she is stable but will require close outpatient follow-up for ongoing neurological, cardiac, and pulmonary issues, as well as continued wound care and monitoring of her chronic medical conditions. She is at high-risk of readmission and recurrent-acute on chronic aspiration pneumonia. The same has been relayed to the care proxy and is understanding. Time spent discussing smoking cessation with patient: more than 10 minutes Status at Discharge Functional status at discharge: bed bound Overall status at discharge: patient is progressing back to baseline Time Attestation Discharge Coordination Time (in mins): 106 Quality: Safe Use of Opioids Does Pt have an Active Cancer Diagnosis on the Problem List?: No Quality: Stroke Does the patient have a stroke diagnosis?: No Physical Exam Vital Signs: Vital Signs: Last Vital Signs Temp 98.1 F 07/01/25 15:14 Pulse 62 07/01/25 15:14 Resp 18 07/01/25 15:14 BP 132/63 07/01/25 15:14 Pulse Ox 98 07/01/25 15:14 O2 Del Method Nasal Cannula 07/01/25 15:14 O2 Flow Rate 1 07/01/25 15:14 Oxygen Flow Rate 2 06/25/25 21:23 BMI result Body Mass Index 34.3 DS: Data Data Completed and Pending Completed studies during hospitalization [Text1]: Procedures Insertion of Endotracheal Airway into Trachea, Via Natural or Artificial Opening (06/02/24) Introduction of Remdesivir Anti-infective into Peripheral Vein, Percutaneous Approach, [employer] (08/02/23) Introduction of Vasopressor into Peripheral Vein, Percutaneous Approach (11/07/24) Respiratory Ventilation, Less than 24 Consecutive Hours (06/02/24) Labs on day of discharge: Laboratory Results - last 24 hr 06/30/25 06/30/25 06/30/25 16:00 19:30 20:37 WBC 11.1 H RBC 3.47 L Hgb 9.4 L Hct 30.1 L MCV 86.7 MCH 27.1 MCHC 31.2 RDW 17.5 H Plt Count 239 MPV 11.0 Immature Gran % (Auto) Neut % (Auto) Lymph % (Auto) [place] % (Auto) Eos % (Auto) Baso % (Auto) Lymph # (Auto) [place] # (Auto) Eos # (Auto) Baso # (Auto) Abs Immat Gran (auto) Absolute Neuts (auto) Absolute Nucleated RBC 0.000 Nucleated RBC % (auto) 0.0 Sodium 143 Potassium 5.6 H Chloride 108 Carbon Dioxide 27 Anion Gap 14 BUN 45 H Creatinine 1.19 Estim Creat Clear Calc 35.8 Estimated GFR 44 POC Glucose 92 92 Random Glucose 93 Calcium 9.1 Magnesium Total Bilirubin AST ALT Alkaline Phosphatase Total Protein Albumin 07/01/25 07/01/25 07/01/25 06:43 07:10 11:06 WBC 10.0 RBC 3.32 L Hgb 9.2 L Hct 29.6 L MCV 89.2 MCH 27.7 MCHC 31.1 RDW 17.2 H Plt Count 240 MPV 11.1 Immature Gran % (Auto) 0.9 H Neut % (Auto) 70.9 Lymph % (Auto) 20.0 [place] % (Auto) 6.4 Eos % (Auto) 1.4 Baso % (Auto) 0.4 Lymph # (Auto) 2.0 [place] # (Auto) 0.6 Eos # (Auto) 0.1 Baso # (Auto) 0.0 Abs Immat Gran (auto) 0.09 H Absolute Neuts (auto) 7.1 Absolute Nucleated RBC 0.000 Nucleated RBC % (auto) 0.0 Sodium 145 Potassium 4.8 Chloride 109 H Carbon Dioxide 30 H Anion Gap 11 L BUN 41 H Creatinine 1.11 Estim Creat Clear Calc 38.3 Estimated GFR 47 POC Glucose 103 119 H Random Glucose 99 Calcium 9.7 D Magnesium 1.8 Total Bilirubin 0.2 AST 21 ALT 11 Alkaline Phosphatase 44 Total Protein 5.9 L Albumin 3.1 L Discharge Plan Discharge Anticipated Discharge Date/Time: 07/01/25 16:19 Patient Disposition: Home Health Service Discharge Diagnosis: Breakthrough seizures Referrals: Joanne [facility] [Outside] - 1 Week Cliff Walsh MD [Primary Care Provider, Internal Medicine] - 1 Week Discharge Medications: New levetiracetam 500 mg Tablet 500 mg PO BID 30 Days Qty: 60 3RF Continued methimazole 5 mg tablet 2.5 mg PO MOWEFR albuterol sulfate [Ventolin HFA] 90 mcg/actuation HFA aerosol inhaler 2 puff inhalation Q6H PRN (Reason: wheezing) docusate sodium 100 mg capsule 100 mg PO BID ferrous sulfate 324 mg (65 mg iron) tablet,delayed release (DR/EC) 324 mg PO DAILY cefuroxime axetil 250 mg Tablet 250 mg PO Q12H Qty: 12 0RF glipizide 5 mg tablet extended release 24hr 2.5 mg PO DAILY Qty: 1 0RF atorvastatin 80 mg tablet 80 mg PO BEDTIME clopidogrel 75 mg tablet 75 mg PO DAILY folic acid 400 mcg tablet 0.4 mg PO DAILY cyanocobalamin (vitamin B-12) 500 mcg tablet 500 mcg PO DAILY oxybutynin chloride 5 mg tablet extended release 24hr 5 mg PO DAILY fluoxetine 20 mg capsule 20 mg PO DAILY zinc oxide 20 % Ointment 1 appl TOPICAL DAILY PRN (Reason: Wound Healing) Rx Instructions: apply to buttocks trazodone 100 mg tablet 100 mg PO BEDTIME pregabalin 150 mg capsule 150 mg PO TID cholecalciferol (vitamin D3) 25 mcg (1,000 unit) tablet 25 mcg PO DAILY metoprolol succinate 25 mg tablet extended release 24 hr 25 mg PO DAILY Discontinued levetiracetam [Keppra] 250 mg Tablet 250 mg PO BID Discharge Orders: Discharge Order (Routine); Ordered 07/01/25 Ordered By: Meri Heredia Diet: Low salt diet Activity on Discharge: Rest with bed elevated Stand Alone Forms: Patient Portal Discharge page Print Language: Hebrew Care Plan Goals: Certainly! Here are care plan goals and discharge instructions tailored for this patient: Care Plan Goals 1. Neurological Stability: - Prevent further episodes of encephalopathy and seizures. - Monitor for changes in mental status and ensure adherence to antiepileptic therapy. 2. Respiratory Management: - Maintain adequate oxygenation on home 2 L O2. - Prevent COPD exacerbations and aspiration events. 3. Cardiac and Renal Function: - Monitor and manage fluid status, electrolytes, and renal function. - Prevent recurrence of hyperkalemia and monitor for signs of heart failure. 4. Wound Healing: - Promote healing of sacral and heel pressure injuries. - Prevent further skin breakdown and infection. 5. Nutritional Support and Aspiration Precautions: - Ensure safe oral intake per BARBERING INSTRUCTOR recommendations. - Prevent aspiration and maintain adequate nutrition. 6. Chronic Disease Management: - Optimize control of diabetes, anemia, hyperthyroidism, and mood disorder. - Ensure medication adherence and appropriate follow-up. 7. Safe Discharge and Follow-Up: - Arrange for appropriate outpatient follow-up for pulmonary nodules, neurology, and wound care. - Educate caregivers on all aspects of care and warning signs. Discharge Instructions 1. Medications: - Take all prescribed medications as directed, including Keppra for seizures, glipizide and insulin for diabetes, clopidogrel and atorvastatin for stroke prevention, methimazole for hyperthyroidism, pregabalin for neuropathy, trazodone and fluoxetine for mood, and iron for anemia. - Continue all home medications unless otherwise instructed. - Maintain a low potassium diet as recommended. 2. Oxygen Therapy: - Continue home oxygen at 2 L/min via nasal cannula as previously prescribed. - Monitor for increased shortness of breath, chest pain, or signs of respiratory distress. 3. Diet and Swallowing: - Follow BARBERING INSTRUCTOR recommendations: puree diet, thin liquids, 1:1 feeding assistance, and take medications whole with puree. - Strict aspiration precautions: sit upright during and after meals, eat slowly, and avoid distractions during feeding. 4. Wound Care: - Offload pressure from sacrum/coccyx and heels with frequent repositioning (every 2 hours) and use of pillows or boots. - Cleanse wounds as instructed, apply Triad to sacral wound, and use foam dressings as directed. - Assess wounds regularly for signs of infection (redness, swelling, drainage, foul odor). 5. Monitoring and When to Seek Medical Attention: - Watch for changes in mental status, new or worsening confusion, unresponsiveness, or seizure activity. - Report any fever, increased shortness of breath, chest pain, palpitations, or swelling. - Notify provider for decreased urine output, dark urine, or signs of dehydration. - Seek care for any signs of wound infection or breakdown. 6. Activity and Safety: - Continue bed-bound precautions and use assistive devices as needed. - Ensure safe environment to prevent falls and further injury. 7. Follow-Up Appointments: - Schedule and attend follow-up appointments with primary care, neurology (for EEG/MRI results and seizure management), pulmonology (for pulmonary nodules), cardiology (for aortic stenosis), and wound care as needed. - Arrange for home health services if appropriate for wound care and physical therapy. 8. Advance Care Planning: - Continue discussions regarding goals of care with healthcare proxy and family as needed. Let me know if you need these in a specific format or with additional details for your EMR or discharge paperwork. Health Concerns: See above Plan of Treatment: See above Assessment: See above
[2025-07-01 16:21] LABS: Glucose, Whole Blood 123 mg/dL (60-115)
--- NOTE | 2025-07-01 16:25 | P.F2F_ITS ---
Service Date Service Date: 07/01/25 Encounter Date of encounter: 07/01/25 Reasons for Services Signs and symptoms assessed: Need for VNA Reason for group home: CV/CP assess and/or care, medication management, medication treatment and teach disease management Reason for physical therapy: home safety and mobility, gait/transfer training, assess need for DME and ADL training Reason for occupational therapy: home safety and mobility, gait/transfer training, assess need for DME and ADL training Reason for speech therapy: swallowing impairment, speech impairment and cognitive impairment Homebound: Leaving the home is medically contraindicated at this time without the asist of a device and/or another person due th the listed conditions above and below. Reason homebound: unsteady gait / fall risk, bedbound/chairbound, poor balance / fall risk, shortness of breath at rest and cognitively impaired / unsafe Certification: Based on the above findings, I certify that this patient is confined to the home and needs intermittent group home care, physical therapy and/or speech therapy, or continues to need occupational therapy. The patient is under my care, and I have initiated the establishment of the plan of care. The patient will be followed by a physician who will periodically review the plan of care. Time Spent With Patient Time: Total time managing care of this patient today ____ minutes.
--- NOTE | 2025-07-01 16:31 | MHC.SLORD ---
Speech Language Pathology Order Status: COUNTER MOLDER unable to see patient. Per RN, being discharged home tonight. No concerns and is tolerating current diet. Recommend continuing diet. COUNTER MOLDER to follow.
== END 2025-07-01 18:08 | disposition home health service (06) | DRG 100 ==
LOC: HO.ED 06-26 04:11 → HO.EDOVER 06-26 04:22 → HO.IMC 06-26 15:15
PROVIDERS: Student in an Organized Health Care Education/Training Program; Admitting Provider Physician Assistant; Emergency Provider Emergency Medicine; PCP Internal Medicine; Visit Provider Student in an Organized Health Care Education/Training Program
DX: G40.909 Epilepsy, unspecified, not intractable, without status epilepticus (principal); J96.21 Acute and chronic respiratory failure with hypoxia; J96.22 Acute and chronic respiratory failure with hypercapnia; J44.1 Chronic obstructive pulmonary disease with (acute) exacerbation; N17.9 Acute kidney failure, unspecified; I69.354 Hemiplegia and hemiparesis following cerebral infarction affecting left non-dominant side; N18.30 Chronic kidney disease, stage 3 unspecified; E11.22 Type 2 diabetes mellitus with diabetic chronic kidney disease; Z99.81 Dependence on supplemental oxygen; E11.42 Type 2 diabetes mellitus with diabetic polyneuropathy; R91.8 Other nonspecific abnormal finding of lung field; I69.322 Dysarthria following cerebral infarction; E87.5 Hyperkalemia; I35.0 Nonrheumatic aortic (valve) stenosis; E05.90 Thyrotoxicosis, unspecified without thyrotoxic crisis or storm; L89.156 Pressure-induced deep tissue damage of sacral region; I69.392 Facial weakness following cerebral infarction; D50.9 Iron deficiency anemia, unspecified; Z20.822 Contact with and (suspected) exposure to COVID-19; Z74.01 Bed confinement status; Z79.02 Long term (current) use of antithrombotics/antiplatelets; Z79.899 Other long term (current) drug therapy
CPT/HCPCS: 36415; 36600; 70551; 71045; 71275; 80048; 80053; 80076; 82803; 82947; 83605; 83690; 83735; 83880; 84484; 85025; 85027; 85379; 85610; 86140; 87040; 87637; 92610; 93005; 93306; 94640; 95819; 99285; J0692; J1644; J1836; J1938; J1953; J2919; J3475; Q9957; Q9967

== ENCOUNTER → 2025-06-25 21:37 | Outpatient (BNV) | payer MEDICARE, MEDICAID, SELFPAY | PROVIDERS: Admitting Provider Physician Assistant; Emergency Provider Emergency Medicine; PCP Internal Medicine; Visit Provider Internal Medicine | DX: R06.00 Dyspnea, unspecified (principal) | CPT/HCPCS: 93010 ==

== ENCOUNTER → 2025-06-25 21:37 | Outpatient (BNV) | payer MEDICARE, MEDICAID, SELFPAY | PROVIDERS: Emergency Provider Emergency Medicine; PCP Internal Medicine; Visit Provider Radiology Diagnostic Radiology | DX: J81.0 Acute pulmonary edema (principal); R91.8 Other nonspecific abnormal finding of lung field | CPT/HCPCS: 71045 ==

== ENCOUNTER → 2025-06-26 00:38 | Outpatient (BNV) | payer MEDICARE, MEDICAID, SELFPAY | PROVIDERS: Emergency Provider Emergency Medicine; PCP Internal Medicine; Visit Provider Radiology Diagnostic Radiology | DX: J90 Pleural effusion, not elsewhere classified (principal); J98.11 Atelectasis; E04.2 Nontoxic multinodular goiter; R91.8 Other nonspecific abnormal finding of lung field; Z03.89 Encounter for observation for other suspected diseases and conditions ruled out | CPT/HCPCS: 71275 ==

== ENCOUNTER 2025-06-26 04:20 | Outpatient (BNV) | payer MEDICARE, MEDICAID, SELFPAY | END 2025-06-27 07:00 | PROVIDERS: Admitting Provider Physician Assistant; Emergency Provider Emergency Medicine; PCP Internal Medicine; Visit Provider Internal Medicine | DX: I35.0 Nonrheumatic aortic (valve) stenosis (principal); I42.2 Other hypertrophic cardiomyopathy | CPT/HCPCS: 93306 ==

== ENCOUNTER 2025-06-26 04:20 | Outpatient (BNV) | payer MEDICARE, MEDICAID, SELFPAY | END 2025-06-30 17:57 | PROVIDERS: Admitting Provider Physician Assistant; Emergency Provider Emergency Medicine; PCP Internal Medicine; Visit Provider Specialist | DX: I67.82 Cerebral ischemia (principal); R90.82 White matter disease, unspecified; G31.9 Degenerative disease of nervous system, unspecified | CPT/HCPCS: 70551 ==

== ENCOUNTER 2025-06-26 04:20 | Outpatient (BNV) | payer MEDICARE, MEDICAID, SELFPAY | END 2025-06-27 16:00 | PROVIDERS: Admitting Provider Physician Assistant; Emergency Provider Emergency Medicine; PCP Internal Medicine; Visit Provider Psychiatry & Neurology Neurology | DX: R40.20 Unspecified coma (principal) | CPT/HCPCS: 95816 ==

== ENCOUNTER → 2025-06-26 04:20 | Outpatient (BNV) | payer MEDICARE, MEDICAID, SELFPAY | PROVIDERS: Admitting Provider Physician Assistant; Emergency Provider Emergency Medicine; PCP Internal Medicine; Visit Provider Student in an Organized Health Care Education/Training Program | DX: J96.21 Acute and chronic respiratory failure with hypoxia (principal); J96.22 Acute and chronic respiratory failure with hypercapnia; J44.1 Chronic obstructive pulmonary disease with (acute) exacerbation; N18.30 Chronic kidney disease, stage 3 unspecified; G93.41 Metabolic encephalopathy; R79.89 Other specified abnormal findings of blood chemistry; E87.5 Hyperkalemia; L89.156 Pressure-induced deep tissue damage of sacral region | CPT/HCPCS: 99222; 99232; 99233; 99499 ==

== ENCOUNTER → 2025-06-26 04:20 | Outpatient (BNV) | payer MEDICARE, MEDICAID, SELFPAY | PROVIDERS: Admitting Provider Physician Assistant; Emergency Provider Emergency Medicine; PCP Internal Medicine; Visit Provider Psychiatry & Neurology Neurology | DX: G93.40 Encephalopathy, unspecified (principal) | CPT/HCPCS: 99222 ==